=== PATIENT | male | born 1940 | race Caucasian/White ===

== ENCOUNTER 2016-11-23 05:54 | Day surgery (SDC) | payer MEDICARE ==
[2016-11-18 11:49] VITALS: BMI 32.9
[2016-11-23] MEDS ORDERED: SODIUM CHLORIDE 0.9% 1,000 ML IV SCH ×2 (05:56→07:45)
[2016-11-23] MEDS ORDERED: LACTATED RINGERS 1,000 ML IV SCH (05:56)
[2016-11-23] MEDS ORDERED: BENZOCAINE SPRAY 100 APPLIC/CAN TOPICAL PRN (05:56)
[2016-11-23 06:41] LABS: INR 4.3 (<1.1)
[2016-11-23 06:56] LABS: Anion Gap 11 mmol/L; Blood Urea Nitrogen 22 mg/dL (9-20); Calcium 9.4 mg/dL (8.4-10.2); Carbon Dioxide 26 mmol/L (22-30); Chloride 107 mmol/L (98-107); Glucose 98 mg/dL (74-99); Non-African American GFR(MDRD) >60 (>60 ml/min/1.73 sqM); Potassium 4.6 mmol/L (3.5-5.1); Sodium 144 mmol/L (137-145)
[2016-11-23] MEDS ORDERED: PROPOFOL 10 MG/ML 20 ML VIAL IV ONE ×2 (07:06→10:26)
[2016-11-23 07:37] VITALS: TEMP 97.5
[2016-11-23 08:27] VITALS: RESP 16
[2016-11-23] MEDS ORDERED: AMIODARONE 200 MG TAB PO SCH (09:00)
[2016-11-23] MEDS ORDERED: FUROSEMIDE 20 MG TAB PO SCH (09:00)
[2016-11-23] MEDS ORDERED: METOPROLOL TARTRATE 50 MG TAB PO SCH (09:00)
[2016-11-23] MEDS ORDERED: FOLIC ACID 1 MG TAB PO SCH (09:00)
[2016-11-23] MEDS ORDERED: NON-FORMULARY DRUG (Potassium Chloride [K-Tab Er] 10 MEQ) PO SCH (09:00)
[2016-11-23 09:25] VITALS: BP 148/66; PULSE 82
--- NOTE | 2016-11-23 11:30 | ECHOT ---
DATE OF SERVICE: CLINICAL INFORMATION: INDICATION: Evaluation of left atrial appendage. PROCEDURE: After explaining the procedure to the patient, its risk and complications, his blood pressure, heart rate, O2 saturation was monitored. The throat was sprayed with Cetacaine. He received sedation per Anesthesia Department. The probe was introduced into the esophagus without difficulty. Images were obtained. The probe was removed. There were no immediate complications. FINDINGS: Biatrial enlargement was noted. Left atrial appendage is normal. Left ventricular size and systolic function normal, ejection fraction is 55%. The mitral valve revealed severe mitral annulus calcification. A prosthetic aortic valve was noted with normal appearance. Tricuspid valve is normal. Descending thoracic aorta revealed mild atherosclerotic changes. No pericardial effusion was noted. Contrast bubble study revealed no evidence of shunting across the interatrial septum. Doppler pulse wave and color Doppler obtained, revealed mild mitral and tricuspid regurgitation. There was trace aortic regurgitation. No shunting was noted by color Doppler study. CONCLUSION: 1. Biatrial enlargement with normal appearance of left atrial appendage. 2. Normal ventricular size and systolic function. 3. Prosthetic aortic valve with normal appearance and trace aortic regurgitation. 4. Severe mitral annulus calcification with mild mitral regurgitation. 5. Mild tricuspid regurgitation. 6. No shunting across the interatrial septum. 7. Mild atherosclerotic changes of the descending thoracic aorta. [facility]
--- NOTE | 2016-11-23 13:22 | CE ---
DATE OF SERVICE: CARDIOVERSION PROCEDURE NOTE: INDICATIONS: Atrial flutter. PROCEDURE: After explaining the procedure to the patient as well as risks and complications, his blood pressure, heart rate and O2 saturation was monitored. After performing transesophageal echocardiogram and obtaining a sedated state, a synchronized biphasic 200 joules cardioversion was performed with yarsanism of normal sinus rhythm. There was no immediate complication.
[2016-11-23] MEDS ORDERED: NON-FORMULARY DRUG (Benazepril Hcl [Lotensin] 20 MG) PO SCH (15:00)
[2016-11-25] MEDS ORDERED: WARFARIN 7.5 MG TAB PO SCH (07:32)
== END 2016-11-23 09:25 | disposition home or self-care (01) ==
LOC: CATHCVL 05:54
PROVIDERS: ATTEND Internal Medicine Interventional Cardiology
DX: I48.92 Unspecified atrial flutter (principal); I48.91 Unspecified atrial fibrillation; Z95.2 Presence of prosthetic heart valve; I51.7 Cardiomegaly; I08.1 Rheumatic disorders of both mitral and tricuspid valves; I70.0 Atherosclerosis of aorta; I44.7 Left bundle-branch block, unspecified; R94.31 Abnormal electrocardiogram [ECG] [EKG]; I73.9 Peripheral vascular disease, unspecified; I10 Essential (primary) hypertension; Z79.01 Long term (current) use of anticoagulants; Z79.891 Long term (current) use of opiate analgesic; Z79.899 Other long term (current) drug therapy; Z88.8 Allergy status to other drugs, medicaments and biological substances; Z82.49 Family history of ischemic heart disease and other diseases of the circulatory system
CPT/HCPCS: 93312; 93320; 93005; 93325; 92960; 80048; 85610; J2704; 99152

== ENCOUNTER 2017-10-20 23:56 | Emergency (ER) | payer MEDICARE ==
[2017-10-21 00:07] VITALS: RESP 18
[2017-10-21] MEDS ORDERED: KETOROLAC 30 MG/ML 1 ML VIAL IVP STA (02:22)
[2017-10-21] MEDS ORDERED: HYDROmorphone 1 MG/ML 1 ML SYRINGE IVP STA (02:22)
[2017-10-21] MEDS ORDERED: SODIUM CHLORIDE 0.9% 1,000 ML IV STA (02:22)
[2017-10-21] MEDS ORDERED: ONDANSETRON 4 MG/2 ML VIAL IVP STA (02:22)
[2017-10-21 02:56] LABS: INR 3.8 (<1.2); Partial Thromboplastin Time 37.8 sec (22.0-30.0); Prothrombin Time 34.4 sec (9.0-12.0)
[2017-10-21 02:59] LABS: Basophils # (A) 0.1 k/uL (0-0.2); Basophils % (A) 1 %; CH 31.2; CHCM 32.5; Eosinophils # (A) 0.3 k/uL (0-0.7); Eosinophils % (A) 3 %; HCT 39.8 % (39.0-53.0); HDW 2.75; HGB 12.4 gm/dL (13.0-17.5); Luc % (Auto) 2; Lymphocytes # (A) 0.6 k/uL (1.0-4.8); Lymphocytes % (A) 5 %; MCH 30.2 pg (25.0-35.0); MCHC 31.2 g/dL (31.0-37.0); MCV 96.6 fL (80.0-100.0); Mean Platelet Volume 8.1; Monocytes # (A) 0.7 k/uL (0-1.0); Monocytes % (A) 6 %; Neutrophils # (A) 9.9 k/uL (1.3-7.7); Neutrophils % (A) 84 %; RBC 4.12 m/uL (4.30-5.90); RDW 14.2 % (11.5-15.5); WBC 11.9 k/uL (3.8-10.6); WBC (Perox) 11.29
[2017-10-21 03:01] LABS: ALT 40 U/L (21-72); AST 34 U/L (17-59); Alkaline Phosphatase 85 U/L (38-126); Amylase 50 U/L (30-110); Anion Gap 11 mmol/L; Blood Urea Nitrogen 22 mg/dL (9-20); Calcium 9.3 mg/dL (8.4-10.2); Carbon Dioxide 26 mmol/L (22-30); Chloride 105 mmol/L (98-107); Glucose 100 mg/dL (74-99); Non-African American GFR(MDRD) >60 (>60 ml/min/1.73 sqM); Potassium 4.6 mmol/L (3.5-5.1); Sodium 142 mmol/L (137-145); Total Bilirubin 0.6 mg/dL (0.2-1.3); Total Protein 7.5 g/dL (6.3-8.2)
--- NOTE | 2017-10-21 03:10 | CT ---
EXAM: CT Abdomen and Pelvis Without Intravenous Contrast CLINICAL HISTORY: Reason: abdominal pain TECHNIQUE: Axial computed tomography images of the abdomen and pelvis without intravenous contrast. CTDI is 39.5 mGy and DLP is 1765.70 mGy-cm. This CT exam was performed using one or more of the following dose reduction techniques: automated exposure control, adjustment of the mA and/or kV according to patient size, and/or use of iterative reconstruction technique. Coronal and sagittal reformatted images were created and reviewed. COMPARISON: 09/28/2015 FINDINGS: Lower thorax: No acute findings. ABDOMEN: Liver: Unremarkable. Gallbladder and bile ducts: Unremarkable. No calcified stones. No ductal dilation. Pancreas: Unremarkable. No ductal dilation. Spleen: Unremarkable. No splenomegaly. Adrenals: Unremarkable. No mass. Kidneys and ureters: There is [id number] right hydroureteronephrosis noted. There is dilatation of the ureter throughout its course. There is a 5.8 mm ureteral stone noted passing into the bladder at the UVJ. There is a 5 mm calcification involving the left renal pelvis. No hydronephrosis is seen. Multiple rounded hyperdense structures are noted involving both kidneys are stable in size in presumed hemorrhagic cysts. Detailed evaluation is not possible on this noncontrast examination. There is a cortical hypodense cyst involving the posterior cortex of the mid left kidney which is similar to previous exam. Stomach and bowel: Unremarkable. No obstruction. No mucosal thickening. Appendix: No findings to suggest acute appendicitis. PELVIS: Bladder: Unremarkable. No stones. Reproductive: Unremarkable as visualized. ABDOMEN and PELVIS: Intraperitoneal space: Unremarkable. No free air. No significant fluid collection. Bones/joints: Multilevel degenerative changes with spondylosis and vacuum phenomenon at multiple levels. Osseous severe canal stenosis is noted at L4-5 level which appears stable. No acute fracture. No dislocation. Soft tissues: Unremarkable. Vasculature: Unremarkable. No abdominal aortic aneurysm. Lymph nodes: Unremarkable. No enlarged lymph nodes. IMPRESSION: There is [id number] right hydroureteronephrosis noted. There is dilatation of the ureter throughout its course. There is a 5.8 mm ureteral stone noted passing into the bladder at the UVJ.
[2017-10-21] MEDS ORDERED: TAMSULOSIN 0.4 MG CAP.ER.24H PO STA (03:23)
[2017-10-21 03:25] LABS: Appearance,Urine Cloudy (Clear); Bilirubin,Urine Negative (Negative); Glucose,Urine (UA) Negative (Negative); Granular Casts,Urine 5 /lpf (0); Ketones,Urine Negative (Negative); Leukocyte Esterase,Urine Trace (Negative); Mucus,Urine Rare /hpf; Nitrite,Urine Negative (Negative); PH, Urine 5.5 (5.0-8.0); Particle Count 7739; Protein,Urine 1+ (Negative); RBC,Urine >182 /hpf (0-5); Specific Gravity,Urine 1.017 (1.001-1.035); UA Billing (MACRO vs. MICRO) MICRO; Urobilinogen,Urine <2.0 mg/dL (<2.0); WBC,Urine 26 /hpf (0-5)
--- NOTE | 2017-10-21 03:53 | ED ---
Back Pain HPI - General Chief Complaint: Back Pain/Injury Stated Complaint: poss kidney stone Time Seen by Provider: 10/21/17 01:49 Source: patient, RN notes reviewed, old records reviewed Limitations: no limitations - History of Present Illness Initial Comments: Patient is a 77 year old male with CC of right flank pain and groin pain for 1 day. Has history of renal cyst and stones, and believes he is passing a stone. Denies any vomiting, but reports nausea. Patient noted blood in urine. Patient is on coumadin for Afib. Patient denies any fever, chills, diarrhea, constipation. Patient relates that he follows with Dr. Douglas in regards to renal cyst. - Related Data Home Medications Medication Instructions Recorded Confirmed Amiodarone [Cordarone] 200 mg PO DAILY 11/18/16 11/23/16 Benazepril HCl [Lotensin] 20 mg PO 1500 11/18/16 11/23/16 Folic Acid 800 mcg PO DAILY 11/18/16 11/23/16 Furosemide [Lasix] 20 mg PO DAILY 11/18/16 11/23/16 Metoprolol Tartrate [Lopressor] 50 mg PO BID 11/18/16 11/23/16 Potassium Chloride [K-Tab ER] 10 meq PO DAILY 11/18/16 11/23/16 Warfarin [Coumadin] 5 mg PO SUTUWETHSA 11/18/16 11/23/16 Warfarin [Coumadin] 7.5 mg PO MOFR 11/18/16 11/23/16 Previous Rx's Medication Instructions Recorded Ciprofloxacin HCl [Cipro] 500 mg PO Q12HR #14 tab 10/21/17 HYDROcodone/APAP 5-325MG [[place] 1 tab PO Q6HR PRN #20 tab 10/21/17 5-325] Ketorolac [Toradol] 10 mg PO Q6HR #15 tab 10/21/17 Ondansetron Odt [Zofran Odt] 4 mg PO Q8HR PRN #12 tab 10/21/17 Tamsulosin [Flomax] 0.4 mg PO DAILY #10 cap 10/21/17 Allergies Allergy/AdvReac Type Severity Reaction Status Date / Time dopamine Allergy "WAS TOLD Verified 11/18/16 10:57 NOT TO HAVE RX AGAIN,VERY ILL STATES ALMOST " Review of Systems ROS Statement: Those systems with pertinent positive or pertinent negative responses have been documented in the HPI. ROS Other: All systems not noted in ROS Statement are negative. Past Medical History Past Medical History: Cancer, Hypertension, Osteoarthritis (OA), Prostate Disorder Additional Past Medical History / Comment(s): ARRYTHYTHMIA,AORTIC VALVE REPLACEMENT,PROSTATE CANCER, History of Any Multi-Drug Resistant Organisms: None Reported Past Surgical History: Tonsillectomy Additional Past Surgical History / Comment(s): VASCECTOMY,AORTIC VALVE REPLACEMENT, CAROTID ARTERY RIGHT SIDE Past Anesthesia/Blood Transfusion Reactions: No Reported Reaction Past Psychological History: Depression Smoking Status: Former smoker Past Alcohol Use History: None Reported Past Drug Use History: None Reported - Past Family History Mother Family Medical History: Cancer General Exam - General Exam Comments Initial Comments: This is a very pleasant 77 year old male, no distress Limitations: no limitations General appearance: alert, in no apparent distress Head exam: Present: atraumatic, normocephalic, normal inspection Eye exam: Present: normal appearance, PERRL, EOMI. Absent: scleral icterus, conjunctival injection, periorbital swelling ENT exam: Present: normal exam, mucous membranes moist Neck exam: Present: normal inspection. Absent: tenderness, meningismus, lymphadenopathy Respiratory exam: Present: normal lung sounds bilaterally. Absent: respiratory distress, wheezes, rales, rhonchi, stridor Cardiovascular Exam: Present: regular rate, normal rhythm, normal heart sounds. Absent: systolic murmur, diastolic murmur, rubs, gallop, clicks GI/Abdominal exam: Present: soft, normal bowel sounds. Absent: distended, tenderness, guarding, rebound, rigid Extremities exam: Present: normal inspection, full ROM, normal capillary refill. Absent: tenderness, pedal edema, joint swelling, calf tenderness Back exam: Present: normal inspection, CVA tenderness (R) Neurological exam: Present: alert, oriented X3, CN II-XII intact Psychiatric exam: Present: normal affect, normal mood Course Vital Signs 10/21/17 10/21/17 10/21/17 00:02 03:32 04:32 Temperature 97.9 F 98 F Pulse Rate 72 64 76 Respiratory 18 18 18 Rate Blood Pressure 195/82 141/66 141/76 O2 Sat by Pulse 95 96 97 Oximetry Medical Decision Making - Medical Decision Making Patient is a 77 year old male with Right CVA tenderness, flank pain, hematuria for 1 day. Patient has significant hematuria and WBC. LAbs show minor leukocytosis. BUN and CR within noral limitis. Patient INR is elevated. Discussed hold coumadin for 1 day and recheck next week. Patient CT shows 5.8mm stone at Right VUJ. Patient was given fluids and pain medication, and reports he feels much better. Discussed patient should follow up with urology and PCP. Return parameters discussed. - Lab Data Result diagrams: 10/21/17 01:18 Lab Results 10/21/17 10/21/17 10/21/17 Range/Units 01:18 01:18 01:18 WBC 11.9 H (3.8-10.6) k/uL RBC 4.12 L (4.30-5.90) m/uL Hgb 12.4 L (13.0-17.5) gm/dL Hct 39.8 (39.0-53.0) % MCV 96.6 (80.0-100.0) fL MCH 30.2 (25.0-35.0) pg MCHC 31.2 (31.0-37.0) g/dL RDW 14.2 (11.5-15.5) % Plt Count 174 (150-450) k/uL Neutrophils % 84 % Lymphocytes % 5 % Monocytes % 6 % Eosinophils % 3 % Basophils % 1 % Neutrophils # 9.9 H (1.3-7.7) k/uL Lymphocytes # 0.6 L (1.0-4.8) k/uL Monocytes # 0.7 (0-1.0) k/uL Eosinophils # 0.3 (0-0.7) k/uL Basophils # 0.1 (0-0.2) k/uL PT 34.4 H (9.0-12.0) sec INR 3.8 H (<1.2) APTT 37.8 H (22.0-30.0) sec Urine Color Red Urine Appearance Cloudy (Clear) Urine pH 5.5 (5.0-8.0) Ur Specific [place] 1.017 (1.001-1.035) Urine Protein 1+ H (Negative) Urine Glucose (UA) Negative (Negative) Urine Ketones Negative (Negative) Urine Blood Large H (Negative) Urine Nitrite Negative (Negative) Urine Bilirubin Negative (Negative) Urine Urobilinogen <2.0 (<2.0) mg/dL Ur Leukocyte Esterase Trace H (Negative) Urine RBC >182 H (0-5) /hpf Urine WBC 26 H (0-5) /hpf Urine WBC Clumps Few H (None) /hpf Granular Casts 5 (0) /lpf Urine Mucus Rare H (None) /hpf - Radiology Data Radiology results: report reviewed CT shows hydroureter and hydronephrosis on Right renal pelbis. Evidence of 5.8 mm ureteral stone in VUJ. Disposition Clinical Impression: Right ureteral stone, Elevated INR Disposition: HOME SELF-CARE Condition: Good Instructions: Ureteral Stones (ED) Additional Instructions: Patient to follow-up with urologist. Remain hydrated. Take the medicine as prescribed. Return to emergency department if any alarming signs or symptoms occur. Patient should discontinue taking her warfarin for the next 2 days. Follow-up with your primary care provider within the next week. Prescriptions: Ciprofloxacin HCl [Cipro] 500 mg PO Q12HR #14 tab HYDROcodone/APAP 5-325MG [[place] 5-325] 1 tab PO Q6HR PRN #20 tab PRN Reason: Pain Ketorolac [Toradol] 10 mg PO Q6HR #15 tab Ondansetron Odt [Zofran Odt] 4 mg PO Q8HR PRN #12 tab PRN Reason: Nausea Tamsulosin [Flomax] 0.4 mg PO DAILY #10 cap Referrals: Coleman Nugent MD [Primary Care Provider] - 1-2 days Time of Disposition: 03:51
[2017-10-21 04:34] VITALS: BP 141/76; PULSE 76; TEMP 98
== END 2017-10-21 04:34 | disposition home or self-care (01) ==
LOC: EC 23:56
DX: N13.2 Hydronephrosis with renal and ureteral calculous obstruction (principal); N13.4 Hydroureter; R79.1 Abnormal coagulation profile; D72.829 Elevated white blood cell count, unspecified; I48.91 Unspecified atrial fibrillation; I10 Essential (primary) hypertension; Z87.891 Personal history of nicotine dependence; Z79.01 Long term (current) use of anticoagulants; Z79.899 Other long term (current) drug therapy; Z88.8 Allergy status to other drugs, medicaments and biological substances; Z86.79 Personal history of other diseases of the circulatory system
CPT/HCPCS: 36415; 80053; 82150; 83690; 85025; 85610; 85730; 81001; 74176; 99285; 96374; 96375 ×2; 96361; J2405; J1885; J1170

== ENCOUNTER → 2018-09-14 | Outpatient (CLI) | payer MEDICARE ==
[2018-09-14 19:13] LABS: Anion Gap 7.8 mmol/L (4.00-12.00); Carbon Dioxide 23.2 mmol/L (21.6-31.8); Potassium 4.7 mmol/L (3.5-5.5)
== END | disposition home or self-care (01) ==
LOC: LABWHC1 13:33
PROVIDERS: ATTEND Internal Medicine Interventional Cardiology
DX: I10 Essential (primary) hypertension (principal)
CPT/HCPCS: 36415; 80051; 82565; 84520

== ENCOUNTER → 2018-10-05 | Outpatient (CLI) | payer MEDICARE ==
[2018-10-05 20:57] LABS: Albumin/Globulin Ratio 1.25 (1.20-2.10); Anion Gap 9.4 mmol/L (4.00-12.00); Calcium 8.9 mg/dL (8.7-10.3); Carbon Dioxide 25.6 mmol/L (21.6-31.8); Globulin 3.2 g/dL (2.1-3.7); Potassium 4.4 mmol/L (3.5-5.5); Total Bilirubin 0.5 mg/dL (0.3-1.2); Total Protein 7.2 g/dL (6.2-8.2)
== END | disposition home or self-care (01) ==
LOC: LABWHC1 11:40
PROVIDERS: ATTEND Nurse Practitioner Adult Health
DX: E03.2 Hypothyroidism due to medicaments and other exogenous substances (principal); I48.3 Typical atrial flutter
CPT/HCPCS: 36415; 80053; 84443

== ENCOUNTER → 2018-10-24 | Outpatient (CLI) | payer MEDICARE ==
--- NOTE | 2018-10-24 14:37 | CT ---
EXAMINATION TYPE: CT abdomen pelvis wo con DATE OF EXAM: 10/24/2018 COMPARISON: HISTORY: Calculus of kidney. CT DLP: 1178.8 mGycm Examination of the solid and hollow viscera is limited given the lack of contrast. FINDINGS: LUNG BASES: No evidence for nodule. No evidence for infiltrate. LIVER/GB: There is no evidence of cholelithiasis. No space-occupying hepatic lesion. PANCREAS: No pancreatic mass identified. No inflammatory process seen. SPLEEN: No evidence for splenomegaly. No intrasplenic lesions seen. ADRENALS: No adrenal nodules identified. No evidence for thickening. KIDNEYS: Renal cystic changes. Several hemorrhagic cysts are redemonstrated. Renal vascular calcifica tion. No nephrolithiasis appreciated. No hydronephrosis. Urinary bladder is grossly unremarkable. BOWEL: Appendix has a normal appearance. No evidence of bowel obstruction. No inflammatory process. Lymph nodes: No evidence for adenopathy greater than 1 cm. Abdominal aorta: Atheromatous changes seen. No evidence for aneurysm. Genital organs: No significant abnormality. Other: Severe degenerative change lumbar spine. IMPRESSION: 1. No evidence for hydronephrosis or nephrolithiasis.
== END | disposition home or self-care (01) ==
LOC: RADCTMAIN 13:58
PROVIDERS: ATTEND Family Medicine
DX: N20.0 Calculus of kidney (principal)
CPT/HCPCS: 74176

== ENCOUNTER → 2019-05-09 | Outpatient (CLI) | payer MEDICARE ==
--- NOTE | 2019-05-09 18:22 | CT ---
EXAMINATION TYPE: CT abdomen pelvis wo con DATE OF EXAM: 05/09/2019 COMPARISON: 10/24/2018 INDICATION: Gross hematuria., R 93.1 DLP: 1082 mGycm, Automated exposure control for dose reduction was used. CONTRAST: 0 mL of Isovue 300. Study performed without Oral Contrast TECHNIQUE: Axial images were obtained from above the diaphragm to the pubic rami in the axial plane a t 5 mm thick sections. Reconstructed images are reviewed on the computer in the coronal plane. FINDINGS: Limited CT sections are obtained the lung bases. Coronary artery calcifications present. Some mild s ubsegmental atelectasis is likely within the dependent portions of the lung bases.. CT ABDOMEN: Liver: Normal Spleen: Normal Pancreas: Normal Adrenal glands: The adrenal glands are normal. Gallbladder: Normal Kidneys: There are scattered rounded hyper densities within the bilateral kidney cortex. Correlate fo r tuberous sclerosis. The largest at the inferior pole left kidney and measures 2.6 cm in size. These were present previously.. No hydronephrosis is present. No cysts are present. Aorta: Vascular calcification is within the aorta. Inferior vena cava: Normal. CT PELVIS: Loops of bowel within the abdomen and pelvis are normal. Study is performed without oral contrast limiting bowel evaluation. Appendix: Normal as visualized. Urinary bladder: Normal. Genitourinary structures: Prostate appears normal in size and contains calcification. Osseous structures: No suspicious lytic or sclerotic lesions. IMPRESSIONS: 1. No suspicious acute changes. 2. Stable hypodense lesions within the renal cortices.
== END | disposition home or self-care (01) ==
LOC: RADCTMAIN 14:54
PROVIDERS: ATTEND Family Medicine
DX: N28.89 Other specified disorders of kidney and ureter (principal)
CPT/HCPCS: 74176

== ENCOUNTER 2019-05-14 11:20 | Emergency (ER) | payer MEDICARE ==
[2019-05-14 11:31] VITALS: BP 171/67; PULSE 57; RESP 20; TEMP 97.5
[2019-05-14 12:22] LABS: Basophils # (A) 0.1 k/uL (0-0.2); Basophils % (A) 1 %; Eosinophils # (A) 0.3 k/uL (0-0.7); Eosinophils % (A) 3 %; HCT 41.4 % (39.0-53.0); HGB 13.3 gm/dL (13.0-17.5); Lymphocytes # (A) 0.8 k/uL (1.0-4.8); Lymphocytes % (A) 7 %; MCH 30.1 pg (25.0-35.0); MCHC 32.1 g/dL (31.0-37.0); MCV 93.8 fL (80.0-100.0); Mean Platelet Volume 7.8; Monocytes # (A) 0.8 k/uL (0-1.0); Monocytes % (A) 6 %; Neutrophils # (A) 9.8 k/uL (1.3-7.7); Neutrophils % (A) 82 %; Platelet Count 197 k/uL (150-450); RBC 4.41 m/uL (4.30-5.90); RDW 14.3 % (11.5-15.5); WBC 11.9 k/uL (3.8-10.6)
[2019-05-14 12:48] LABS: INR 4.9 (<1.2); Partial Thromboplastin Time 56.1 sec (22.0-30.0); Prothrombin Time 47.4 sec (9.0-12.0)
--- NOTE | 2019-05-14 13:00 | ED ---
General Adult HPI - General Chief complaint: Abdominal Pain Stated complaint: HEMATURIA Time Seen by Provider: 05/14/19 11:35 Source: patient, RN notes reviewed Mode of arrival: ambulatory Limitations: no limitations - History of Present Illness Initial comments: 78-year-old male with a past medical history of prostate cancer, hypertension, or aortic valve replacement currently on Coumadin presents to the emergency determine for hematuria times one week. Patient states he has had this several times in the past but usually it stops. States he has some left flank pain. States that he had a CAT scan 5 days ago that did not show a kidney stone. St ates he saw his primary care provider and was told to follow-up with urology. Patient states they came here instead. Denies any abdominal pain. Denies any lightheadedness. Denies bleeding from anywhere else.Patient has no other complaints at this time including shortness of breath, chest pain, abdominal pain, nausea or vomiting, headache, or visual changes. - Related Data Home Medications Medication Instructions Recorded Confirmed Metoprolol Tartrate [Lopressor] 50 mg PO BID 11/18/16 05/14/19 Folic Acid 0.8 mg PO DAILY@1500 11/02/17 05/14/19 Amiodarone [Cordarone] 200 mg PO DAILY 05/14/19 05/14/19 HYDROcodone/APAP 5-325MG [[place] 1 tab PO BID PRN 05/14/19 05/14/19 5-325] Warfarin [Coumadin] 2.5 mg PO MOFR 05/14/19 05/14/19 Warfarin [Coumadin] 5 mg PO SUTUWETHSA 05/14/19 05/14/19 amLODIPine [Norvasc] 5 mg PO BID 05/14/19 05/14/19 Allergies Allergy/AdvReac Type Severity Reaction Status Date / Time dopamine Allergy "WAS TOLD Verified 05/14/19 12:06 NOT TO HAVE RX AGAIN,VERY ILL STATES ALMOST " Review of Systems ROS Statement: Those systems with pertinent positive or pertinent negative responses have been documented in the HPI. ROS Other: All systems not noted in ROS Statement are negative. Past Medical History Past Medical History: Cancer, Hypertension, Osteoarthritis (OA), Prostate Disorder Additional Past Medical History / Comment(s): ARRYTHYTHMIA,AORTIC VALVE REPLACEMENT,PROSTATE CANCER, History of Any Multi-Drug Resistant Organisms: None Reported Past Surgical History: Tonsillectomy Additional Past Surgical History / Comment(s): VASCECTOMY,AORTIC VALVE REPLACEMENT, CAROTID ARTERY RIGHT SIDE Past Anesthesia/Blood Transfusion Reactions: No Reported Reaction Past Psychological History: Depression Smoking Status: Former smoker Past Alcohol Use History: None Reported Past Drug Use History: None Reported - Past Family History Mother Family Medical History: Cancer General Exam Limitations: no limitations General appearance: alert, in no apparent distress Head exam: Present: atraumatic, normocephalic, normal inspection Eye exam: Present: normal appearance, PERRL, EOMI. Absent: scleral icterus, conjunctival injection, periorbital swelling ENT exam: Present: normal exam, mucous membranes moist Neck exam: Present: normal inspection, full ROM. Absent: tenderness, meningismus, lymphadenopathy Respiratory exam: Present: normal lung sounds bilaterally. Absent: respiratory distress, wheezes, rales, rhonchi, stridor Cardiovascular Exam: Present: regular rate, normal rhythm, normal heart sounds. Absent: bradycardia, tachycardia, irregular rhythm GI/Abdominal exam: Present: soft, normal bowel sounds. Absent: distended, tenderness, guarding, rebound, rigid Neurological exam: Present: alert, oriented X3, CN II-XII intact Psychiatric exam: Present: normal affect, normal mood Course Vital Signs 05/14/19 11:29 Temperature 97.5 F L Pulse Rate 57 L Respiratory 20 Rate Blood Pressure 171/67 O2 Sat by Pulse 96 Oximetry - Reevaluation(s) Reevaluation #1: 05/14/19 13:00 Patient had a computed tomography scan of the abdomen and pelvis without contrast 5 days ago on 05/09/2019. This showed scattered a rounded hypodensities within the bilateral kidney cortex correlated for tuberous sclerosis. Largest at the inferior pole left kidney measures 2.6 cm. Present previously. No changes. Medical Decision Making - Medical Decision Making Pete is a 78 -year-old male presenting to the emergency department for chief complaint of gross hematuria times one week. History of kidney stones however negative CAT scan 5 days ago. These results were reviewed which showed tubular sclerosis that is unchanged. CBC is unremarkable. CMP does show a creatinine of 1.5, likely related to dehydration, educated patient on fluid intake. INR is 4.9, this is high. Patient was told to hold Coumadin today and tomorrow. Urine did show a greater than 182 red blood cells with only 8 white blood cells. This will be cultured. No significant evidence of infection at this time. Discussed case with Dr. Nuñez. At this time patient will follow up outpatient with urology. He will hold Coumadin for 2 days and drink plenty of fluids. He will follow-up with his primary care provider in 2 days for repeat blood work and urine. Family is in agreement. - Lab Data Result diagrams: 05/14/19 12:10 05/14/19 12:10 Lab Results 05/14/19 05/14/19 05/14/19 Range/Units 12:10 12:10 12:10 WBC 11.9 H (3.8-10.6) k/uL RBC 4.41 (4.30-5.90) m/uL Hgb 13.3 (13.0-17.5) gm/dL Hct 41.4 (39.0-53.0) % MCV 93.8 (80.0-100.0) fL MCH 30.1 (25.0-35.0) pg MCHC 32.1 (31.0-37.0) g/dL RDW 14.3 (11.5-15.5) % Plt Count 197 (150-450) k/uL Neutrophils % 82 % Lymphocytes % 7 % Monocytes % 6 % Eosinophils % 3 % Basophils % 1 % Neutrophils # 9.8 H (1.3-7.7) k/uL Lymphocytes # 0.8 L (1.0-4.8) k/uL Monocytes # 0.8 (0-1.0) k/uL Eosinophils # 0.3 (0-0.7) k/uL Basophils # 0.1 (0-0.2) k/uL PT 47.4 H (9.0-12.0) sec INR 4.9 H (<1.2) APTT 56.1 H (22.0-30.0) sec Sodium 140 (137-145) mmol/L Potassium 4.4 (3.5-5.1) mmol/L Chloride 106 (98-107) mmol/L Carbon Dioxide 25 (22-30) mmol/L Anion Gap 9 mmol/L BUN 30 H (9-20) mg/dL Creatinine 1.50 H (0.66-1.25) mg/dL Est GFR (CKD-EPI)AfAm 51 (>60 ml/min/1.73 sqM) Est GFR (CKD-EPI)NonAf 44 (>60 ml/min/1.73 sqM) Glucose 84 (74-99) mg/dL Calcium 9.0 (8.4-10.2) mg/dL Total Bilirubin 0.6 (0.2-1.3) mg/dL AST 40 (17-59) U/L ALT 27 (21-72) U/L Alkaline Phosphatase 88 (38-126) U/L Total Protein 7.9 (6.3-8.2) g/dL Albumin 3.9 (3.5-5.0) g/dL Urine Color Urine Appearance (Clear) Urine RBC (0-5) /hpf Urine WBC (0-5) /hpf 05/14/19 Range/Units 12:10 WBC (3.8-10.6) k/uL RBC (4.30-5.90) m/uL Hgb (13.0-17.5) gm/dL Hct (39.0-53.0) % MCV (80.0-100.0) fL MCH (25.0-35.0) pg MCHC (31.0-37.0) g/dL RDW (11.5-15.5) % Plt Count (150-450) k/uL Neutrophils % % Lymphocytes % % Monocytes % % Eosinophils % % Basophils % % Neutrophils # (1.3-7.7) k/uL Lymphocytes # (1.0-4.8) k/uL Monocytes # (0-1.0) k/uL Eosinophils # (0-0.7) k/uL Basophils # (0-0.2) k/uL PT (9.0-12.0) sec INR (<1.2) APTT (22.0-30.0) sec Sodium (137-145) mmol/L Potassium (3.5-5.1) mmol/L Chloride (98-107) mmol/L Carbon Dioxide (22-30) mmol/L Anion Gap mmol/L BUN (9-20) mg/dL Creatinine (0.66-1.25) mg/dL Est GFR (CKD-EPI)AfAm (>60 ml/min/1.73 sqM) Est GFR (CKD-EPI)NonAf (>60 ml/min/1.73 sqM) Glucose (74-99) mg/dL Calcium (8.4-10.2) mg/dL Total Bilirubin (0.2-1.3) mg/dL AST (17-59) U/L ALT (21-72) U/L Alkaline Phosphatase (38-126) U/L Total Protein (6.3-8.2) g/dL Albumin (3.5-5.0) g/dL Urine Color Dark Red Urine Appearance Bloody (Clear) Urine RBC >182 H (0-5) /hpf Urine WBC 8 H (0-5) /hpf Disposition Clinical Impression: Elevated INR, Hematuria Disposition: HOME SELF-CARE Condition: Good Instructions (If sedation given, give patient instructions): Hematuria (ED) Additional Instructions: Please follow up with urology for blood in urine as soon as possible. Follow-up with primary care in 2 days for repeat INR levels and recheck. Do not take Coumadin today or tomorrow. Return to the emergency department if you have any worsening symptoms. Is patient prescribed a controlled substance at d/c from ED?: No Referrals: Coleman Nugent MD [Primary Care Provider] - 1-2 days Time of Disposition: 14:28
[2019-05-14 13:01] LABS: Albumin 3.9 g/dL (3.5-5.0); Potassium 4.4 mmol/L (3.5-5.1); Total Bilirubin 0.6 mg/dL (0.2-1.3); Total Protein 7.9 g/dL (6.3-8.2)
[2019-05-14 13:35] LABS: RBC,Urine >182 /hpf (0-5); WBC,Urine 8 /hpf (0-5)
[2019-05-14 13:40] LABS: Appearance,Urine Bloody (Clear); Color,Urine Dark Red
== END 2019-05-14 15:02 | disposition home or self-care (01) ==
LOC: EC 11:20
DX: R31.9 Hematuria, unspecified (principal); R79.1 Abnormal coagulation profile; R10.9 Unspecified abdominal pain; I10 Essential (primary) hypertension; Z79.01 Long term (current) use of anticoagulants; Z79.899 Other long term (current) drug therapy; Z88.8 Allergy status to other drugs, medicaments and biological substances; Z87.891 Personal history of nicotine dependence; Z85.46 Personal history of malignant neoplasm of prostate; Z95.2 Presence of prosthetic heart valve
CPT/HCPCS: 36415; 80053; 81001; 85025; 85610; 85730; 87086; 99284

== ENCOUNTER 2019-08-22 09:03 | Emergency (ER) | payer MEDICARE ==
[2019-08-22 09:09] VITALS: TEMP 97.5
[2019-08-22] MEDS ORDERED: SODIUM CHLORIDE 0.9% 500 ML 500 ML IV STA (09:44)
--- NOTE | 2019-08-22 09:47 | ED ---
General Adult HPI - General Chief complaint: Abdominal Pain Stated complaint: Blood in Urine Time Seen by Provider: 08/22/19 09:05 Source: patient, family, RN notes reviewed Mode of arrival: wheelchair Limitations: no limitations - History of Present Illness Initial comments: This is a 79-year-old male with past medical history significant for a valve r eplacement with mechanical valve. Patient states she's on Coumadin. Patient states 2 days ago started having some blood in the urine and then it stopped but returned again today and is actually urinating out some clots. Patient states he has a little bit of dysuria as well. Patient denies urinary frequency but does describe some urgency. Patient denies any abdominal pain any flank pain or any back pain. Patient denies any fever chills. Patient denies any other symptoms at this time. - Related Data Home Medications Medication Instructions Recorded Confirmed Metoprolol Tartrate [Lopressor] 50 mg PO BID 11/18/16 08/22/19 Folic Acid 0.8 mg PO DAILY@1500 11/02/17 08/22/19 Amiodarone [Cordarone] 200 mg PO DAILY 05/14/19 08/22/19 HYDROcodone/APAP 5-325MG [[place] 1 tab PO BID PRN 05/14/19 08/22/19 5-325] Warfarin [Coumadin] 2.5 mg PO TUWEFR 05/14/19 08/22/19 Warfarin [Coumadin] 5 mg PO SUMOTHSA 05/14/19 08/22/19 amLODIPine [Norvasc] 5 mg PO DAILY 05/14/19 08/22/19 Amoxicillin 875 mg PO Q12HR 08/22/19 08/22/19 Previous Rx's Medication Instructions Recorded Sulfamethox-Tmp 800-160Mg [Bactrim 1 each PO Q12HR #14 tab 08/22/19 DS 800-160 mg] Allergies Allergy/AdvReac Type Severity Reaction Status Date / Time dopamine Allergy "WAS TOLD Verified 08/22/19 09:41 NOT TO HAVE RX AGAIN,VERY ILL STATES ALMOST " Review of Systems ROS Statement: Those systems with pertinent positive or pertinent negative responses have been documented in the HPI. ROS Other: All systems not noted in ROS Statement are negative. Past Medical History Past Medical History: Cancer, Hypertension, Osteoarthritis (OA), Prostate Disorder Additional Past Medical History / Comment(s): ARRYTHYTHMIA,AORTIC VALVE REP LACEMENT,PROSTATE CANCER, History of Any Multi-Drug Resistant Organisms: None Reported Past Surgical History: Tonsillectomy Additional Past Surgical History / Comment(s): VASCECTOMY,AORTIC VALVE REPLACEMENT, CAROTID ARTERY RIGHT SIDE Past Anesthesia/Blood Transfusion Reactions: No Reported Reaction Past Psychological History: Depression Smoking Status: Former smoker Past Alcohol Use History: None Reported Past Drug Use History: None Reported - Past Family History Mother Family Medical History: Cancer General Exam - General Exam Comments Initial Comments: GENERAL: Patient is well-developed and well-nourished. Patient is nontoxic and well- hydrated and is in no acute distress. ENT: Neck is soft and supple. No significant lymphadenopathy is noted. Oropharynx is clear. Moist mucous membranes. Neck has full range of motion without eliciting any pain. EYES: The sclera were anicteric and conjunctiva were pink and moist. Extraocular movements were intact and pupils were equal round and reactive to light. Eyelids were unremarkable. PULMONARY: Unlabored respirations. Good breath sounds bilaterally. No audible rales rhonchi or wheezing was noted. CARDIOVASCULAR: There is a regular rate and rhythm without any murmurs gallops or rubs. ABDOMEN: Soft and nontender with normal bowel sounds. No palpable organomegaly was noted. There is no palpable pulsatile mass. SKIN: Skin is clear with no lesions or rashes and otherwise unremarkable. NEUROLOGIC: Patient is alert and oriented x3. Cranial nerves II through XII are grossly intact. Motor and sensory are also intact. Normal speech, volume and content. Symmetrical smile. MUSCULOSKELETAL: Normal extremities with adequate strength and full range of motion. No lower extremity swelling or edema. No calf tenderness. LYMPHATICS: No significant lymphadenopathy is noted PSYCHIATRIC: Normal psychiatric evaluation. Limitations: no limitations Course Vital Signs 08/22/19 09:06 Temperature 97.5 F L Pulse Rate 62 Respiratory 20 Rate Blood Pressure 159/68 O2 Sat by Pulse 98 Oximetry Medical Decision Making - Medical Decision Making Patient has quite a bit of blood in the urine since difficult to tell if there is also an infection. We will treat the patient empirically for infection. Patient will follow-up with Dr. Nugent and do any further workup as indicated. - Lab Data Result diagrams: 08/22/19 09:20 08/22/19 09:20 Lab Results 10/08/22/19 08/22/19 Range/Units 09:20 09:20 09:20 WBC 8.6 (3.8-10.6) k/uL RBC 4.16 L (4.30-5.90) m/uL Hgb 12.6 L (13.0-17.5) gm/dL Hct 38.7 L (39.0-53.0) % MCV 92.9 (80.0-100.0) fL MCH 30.3 (25.0-35.0) pg MCHC 32.6 (31.0-37.0) g/dL RDW 14.7 (11.5-15.5) % Plt Count 217 (150-450) k/uL Neutrophils % 79 % Lymphocytes % 9 % Monocytes % 6 % Eosinophils % 2 % Basophils % 1 % Neutrophils # 6.7 (1.3-7.7) k/uL Lymphocytes # 0.8 L (1.0-4.8) k/uL Monocytes # 0.5 (0-1.0) k/uL Eosinophils # 0.2 (0-0.7) k/uL Basophils # 0.1 (0-0.2) k/uL PT 27.1 H (9.0-12.0) sec INR 2.8 H (<1.2) APTT 40.2 H (22.0-30.0) sec Sodium 141 (137-145) mmol/L Potassium 4.9 (3.5-5.1) mmol/L Chloride 107 (98-107) mmol/L Carbon Dioxide 26 (22-30) mmol/L Anion Gap 8 mmol/L BUN 25 H (9-20) mg/dL Creatinine 1.25 (0.66-1.25) mg/dL Est GFR (CKD-EPI)AfAm 63 (>60 ml/min/1.73 sqM) Est GFR (CKD-EPI)NonAf 55 (>60 ml/min/1.73 sqM) Glucose 100 H (74-99) mg/dL Calcium 9.3 (8.4-10.2) mg/dL Total Bilirubin 0.8 (0.2-1.3) mg/dL AST 44 (17-59) U/L ALT 19 L (21-72) U/L Alkaline Phosphatase 120 (38-126) U/L Total Protein 9.2 H (6.3-8.2) g/dL Albumin 4.1 (3.5-5.0) g/dL Urine Color Urine Appearance (Clear) Urine RBC (0-5) /hpf Urine WBC (0-5) /hpf 08/22/19 Range/Units 11:00 WBC (3.8-10.6) k/uL RBC (4.30-5.90) m/uL Hgb (13.0-17.5) gm/dL Hct (39.0-53.0) % MCV (80.0-100.0) fL MCH (25.0-35.0) pg MCHC (31.0-37.0) g/dL RDW (11.5-15.5) % Plt Count (150-450) k/uL Neutrophils % % Lymphocytes % % Monocytes % % Eosinophils % % Basophils % % Neutrophils # (1.3-7.7) k/uL Lymphocytes # (1.0-4.8) k/uL Monocytes # (0-1.0) k/uL Eosinophils # (0-0.7) k/uL Basophils # (0-0.2) k/uL PT (9.0-12.0) sec INR (<1.2) APTT (22.0-30.0) sec Sodium (137-145) mmol/L Potassium (3.5-5.1) mmol/L Chloride (98-107) mmol/L Carbon Dioxide (22-30) mmol/L Anion Gap mmol/L BUN (9-20) mg/dL Creatinine (0.66-1.25) mg/dL Est GFR (CKD-EPI)AfAm (>60 ml/min/1.73 sqM) Est GFR (CKD-EPI)NonAf (>60 ml/min/1.73 sqM) Glucose (74-99) mg/dL Calcium (8.4-10.2) mg/dL Total Bilirubin (0.2-1.3) mg/dL AST (17-59) U/L ALT (21-72) U/L Alkaline Phosphatase (38-126) U/L Total Protein (6.3-8.2) g/dL Albumin (3.5-5.0) g/dL Urine Color Red Urine Appearance Bloody (Clear) Urine RBC >182 H (0-5) /hpf Urine WBC >182 H (0-5) /hpf Disposition Clinical Impression: Hematuria, Urinary tract infection Disposition: HOME SELF-CARE Condition: Good Instructions (If sedation given, give patient instructions): Hematuria (ED), Urinary Tract Infection in Men (ED) Prescriptions: Sulfamethox-Tmp 800-160Mg [Bactrim DS 800-160 mg] 1 each PO Q12HR #14 tab Is patient prescribed a controlled substance at d/c from ED?: No Referrals: Coleman Nugent MD [Primary Care Provider] - 1-2 days Time of Disposition: 11:53
[2019-08-22 10:17] LABS: Basophils # (A) 0.1 k/uL (0-0.2); Basophils % (A) 1 %; Eosinophils # (A) 0.2 k/uL (0-0.7); Eosinophils % (A) 2 %; HCT 38.7 % (39.0-53.0); HGB 12.6 gm/dL (13.0-17.5); INR 2.8 (<1.2); Lymphocytes # (A) 0.8 k/uL (1.0-4.8); Lymphocytes % (A) 9 %; MCH 30.3 pg (25.0-35.0); MCHC 32.6 g/dL (31.0-37.0); MCV 92.9 fL (80.0-100.0); Mean Platelet Volume 6.9; Monocytes # (A) 0.5 k/uL (0-1.0); Monocytes % (A) 6 %; Neutrophils # (A) 6.7 k/uL (1.3-7.7); Neutrophils % (A) 79 %; Partial Thromboplastin Time 40.2 sec (22.0-30.0); Platelet Count 217 k/uL (150-450); Prothrombin Time 27.1 sec (9.0-12.0); RBC 4.16 m/uL (4.30-5.90); RDW 14.7 % (11.5-15.5); WBC 8.6 k/uL (3.8-10.6)
[2019-08-22 10:19] LABS: Albumin 4.1 g/dL (3.5-5.0); Calcium 9.3 mg/dL (8.4-10.2); Total Bilirubin 0.8 mg/dL (0.2-1.3); Total Protein 9.2 g/dL (6.3-8.2)
[2019-08-22 10:24] LABS: Potassium 4.9 mmol/L (3.5-5.1)
[2019-08-22 11:16] LABS: RBC,Urine >182 /hpf (0-5)
[2019-08-22 11:22] LABS: Appearance,Urine Bloody (Clear); Color,Urine Red
[2019-08-22] MEDS ORDERED: cefTRIAXone 1,000 MG VIAL (IM USE) IM STA (11:53)
[2019-08-22 12:11] VITALS: BP 136/53; PULSE 55; RESP 18
[2019-08-22] MEDS ORDERED: cefTRIAXone IN SWFI 1,000 MG/10 ML SYRINGE IVP STA (12:13)
== END 2019-08-22 12:21 | disposition home or self-care (01) ==
LOC: EC 09:03
DX: N39.0 Urinary tract infection, site not specified (principal); I10 Essential (primary) hypertension; I49.9 Cardiac arrhythmia, unspecified; M19.90 Unspecified osteoarthritis, unspecified site; Z79.01 Long term (current) use of anticoagulants; Z79.899 Other long term (current) drug therapy; Z88.8 Allergy status to other drugs, medicaments and biological substances; Z87.891 Personal history of nicotine dependence; Z85.46 Personal history of malignant neoplasm of prostate; Z98.52 Vasectomy status; Z95.4 Presence of other heart-valve replacement
CPT/HCPCS: 36415; 80053; 81001; 85025; 85610; 85730; 87086; 99284

== ENCOUNTER 2019-08-26 12:14 | Emergency (ER) | payer MEDICARE ==
[2019-08-26 12:20] VITALS: RESP 18
[2019-08-26 13:04] LABS: Basophils # (A) 0.1 k/uL (0-0.2); Basophils % (A) 1 %; Eosinophils # (A) 0.2 k/uL (0-0.7); Eosinophils % (A) 2 %; HCT 35.2 % (39.0-53.0); HGB 11.4 gm/dL (13.0-17.5); Lymphocytes # (A) 0.7 k/uL (1.0-4.8); Lymphocytes % (A) 8 %; MCH 30.3 pg (25.0-35.0); MCHC 32.3 g/dL (31.0-37.0); MCV 93.6 fL (80.0-100.0); Mean Platelet Volume 6.9; Monocytes # (A) 0.6 k/uL (0-1.0); Monocytes % (A) 6 %; Neutrophils # (A) 7.8 k/uL (1.3-7.7); Neutrophils % (A) 81 %; Platelet Count 215 k/uL (150-450); RBC 3.76 m/uL (4.30-5.90); WBC 9.6 k/uL (3.8-10.6)
[2019-08-26 13:17] LABS: Albumin 3.7 g/dL (3.5-5.0); Calcium 9.2 mg/dL (8.4-10.2); Potassium 4.9 mmol/L (3.5-5.1); Total Bilirubin 0.4 mg/dL (0.2-1.3); Total Protein 8.2 g/dL (6.3-8.2)
--- NOTE | 2019-08-26 13:28 | ED ---
General Adult HPI - General Chief complaint: Recheck/Abnormal Lab/Rx Stated complaint: Bleeding/abn labs Time Seen by Provider: 08/26/19 12:15 Source: patient, RN notes reviewed Mode of arrival: wheelchair Limitations: no limitations - History of Present Illness Initial comments: This is a 79-year-old male who presents emergency Department stating he is urinating blood. Patient states his INR was tested today and it was over 8. Patient states he last took last evening. Patient states she's also been on Bactrim recently for a possible urinary tract infection. Patient denies any abdominal pain. Patient denies lightheadedness or dizziness per patient denies any palpations. Patient denies chest pain difficulty breathing or shortness of breath. Patient's only complaint currently is hematuria. - Related Data Home Medications Medication Instructions Recorded Confirmed Metoprolol Tartrate [Lopressor] 50 mg PO BID 11/18/16 08/26/19 Folic Acid 0.8 mg PO DAILY@1500 11/02/17 08/26/19 Amiodarone [Cordarone] 200 mg PO DAILY 05/14/19 08/26/19 HYDROcodone/APAP 5-325MG [[place] 1 tab PO BID PRN 05/14/19 08/26/19 5-325] Warfarin [Coumadin] 2.5 mg PO TUWEFR 05/14/19 08/26/19 Warfarin [Coumadin] 5 mg PO SUMOTHSA 05/14/19 08/26/19 amLODIPine [Norvasc] 5 mg PO DAILY 05/14/19 08/26/19 Allergies Allergy/AdvReac Type Severity Reaction Status Date / Time dopamine Allergy "WAS TOLD Verified 08/26/19 12:31 NOT TO HAVE RX AGAIN,VERY ILL STATES ALMOST " Review of Systems ROS Statement: Those systems with pertinent positive or pertinent negative responses have been documented in the HPI. ROS Other: All systems not noted in ROS Statement are negative. Past Medical History Past Medical History: Cancer, Hypertension, Osteoarthritis (OA), Prostate Disorder Additional Past Medical History / Comment(s): ARRYTHYTHMIA,AORTIC VALVE REPLACEMENT,PROSTATE CANCER, History of Any Multi-Drug Resistant Organisms: None Reported Past Surgical History: Tonsillectomy Additional Past Surgical History / Comment(s): VASCECTOMY,AORTIC VALVE REPLACEMENT, CAROTID ARTERY RIGHT SIDE Past Anesthesia/Blood Transfusion Reactions: No Reported Reaction Past Psychological History: Depression Smoking Status: Former smoker Past Alcohol Use History: None Reported Past Drug Use History: None Reported - Past Family History Mother Family Medical History: Cancer General Exam - General Exam Comments Initial Comments: GENERAL: Patient is well-developed and well-nourished. Patient is nontoxic and well- hydrated and is in no acute distress. ENT: Neck is soft and supple. No significant lymphadenopathy is noted. Oropharynx is clear. Moist mucous membranes. Neck has full range of motion without eliciting any pain. EYES: The sclera were anicteric and conjunctiva were pink and moist. Extraocular movements were intact and pupils were equal round and reactive to light. Eyelids were unremarkable. PULMONARY: Unlabored respirations. Good breath sounds bilaterally. No audible rales r honchi or wheezing was noted. CARDIOVASCULAR: There is a regular rate and rhythm without any murmurs gallops or rubs. ABDOMEN: Soft and nontender with normal bowel sounds. No palpable organomegaly was noted. There is no palpable pulsatile mass. SKIN: Skin is clear with no lesions or rashes and otherwise unremarkable. NEUROLOGIC: Patient is alert and oriented x3. Cranial nerves II through XII are grossly intact. Motor and sensory are also intact. Normal speech, volume and content. Symmetrical smile. MUSCULOSKELETAL: Normal extremities with adequate strength and full range of motion. LYMPHATICS: No significant lymphadenopathy is noted PSYCHIATRIC: Normal psychiatric evaluation. Limitations: no limitations Course Vital Signs 08/26/19 12:16 Temperature 97.6 F Pulse Rate 54 L Respiratory 18 Rate Blood Pressure 139/53 O2 Sat by Pulse 95 Oximetry Medical Decision Making - Medical Decision Making Patient's INR was 7.4 which was down from office INR. Patient's hemoglobin was slightly decreased. I spoke with because Dr. Segal wanted to follow-up in the office. - Lab Data Result diagrams: 08/26/19 12:45 08/26/19 12:45 Lab Results 08/26/19 08/26/19 08/26/19 Range/Units 12:45 12:45 12:45 WBC 9.6 (3.8-10.6) k/uL RBC 3.76 L (4.30-5.90) m/uL Hgb 11.4 L (13.0-17.5) gm/dL Hct 35.2 L (39.0-53.0) % MCV 93.6 (80.0-100.0) fL MCH 30.3 (25.0-35.0) pg MCHC 32.3 (31.0-37.0) g/dL RDW 15.0 (11.5-15.5) % Plt Count 215 (150-450) k/uL Neutrophils % 81 % Lymphocytes % 8 % Monocytes % 6 % Eosinophils % 2 % Basophils % 1 % Neutrophils # 7.8 H (1.3-7.7) k/uL Lymphocytes # 0.7 L (1.0-4.8) k/uL Monocytes # 0.6 (0-1.0) k/uL Eosinophils # 0.2 (0-0.7) k/uL Basophils # 0.1 (0-0.2) k/uL PT 72.0 H (9.0-12.0) sec INR 7.4 H* (<1.2) APTT 52.4 H (22.0-30.0) sec Sodium 140 (137-145) mmol/L Potassium 4.9 (3.5-5.1) mmol/L Chloride 108 H (98-107) mmol/L Carbon Dioxide 22 (22-30) mmol/L Anion Gap 10 mmol/L BUN 20 (9-20) mg/dL Creatinine 1.59 H (0.66-1.25) mg/dL Est GFR (CKD-EPI)AfAm 47 (>60 ml/min/1.73 sqM) Est GFR (CKD-EPI)NonAf 41 (>60 ml/min/1.73 sqM) Glucose 86 (74-99) mg/dL Calcium 9.2 (8.4-10.2) mg/dL Total Bilirubin 0.4 (0.2-1.3) mg/dL AST 38 (17-59) U/L ALT 26 (21-72) U/L Alkaline Phosphatase 106 (38-126) U/L Total Protein 8.2 (6.3-8.2) g/dL Albumin 3.7 (3.5-5.0) g/dL Disposition Clinical Impression: Hematuria, Coagulopathy Disposition: HOME SELF-CARE Instructions (If sedation given, give patient instructions): Hematuria (ED) Additional Instructions: Patient should follow-up with his primary medical care doctor as well as Dr. Prasad and then follow up with Dr. Nava. Patient should return to the emergency department if bleeding is worse or if he has any new or worsening symptoms. Patient should stop Coumadin patient should also stop the Bactrim Is patient prescribed a controlled substance at d/c from ED?: No Referrals: Coleman Nugent MD [Primary Care Provider] - 1-2 days Time of Disposition: 14:56
[2019-08-26 14:08] LABS: Partial Thromboplastin Time 52.4 sec (22.0-30.0)
[2019-08-26 14:11] LABS: INR 7.4 (<1.2)
[2019-08-26 15:17] VITALS: BP 149/67; PULSE 59; TEMP 98.2
== END 2019-08-26 15:15 | disposition home or self-care (01) ==
LOC: EC 12:14
DX: D68.9 Coagulation defect, unspecified (principal); R31.9 Hematuria, unspecified; I10 Essential (primary) hypertension; M19.90 Unspecified osteoarthritis, unspecified site; Z87.891 Personal history of nicotine dependence; Z88.8 Allergy status to other drugs, medicaments and biological substances; Z79.01 Long term (current) use of anticoagulants; Z79.891 Long term (current) use of opiate analgesic; Z79.899 Other long term (current) drug therapy; Z85.46 Personal history of malignant neoplasm of prostate; Z95.2 Presence of prosthetic heart valve; Z86.79 Personal history of other diseases of the circulatory system; Z98.52 Vasectomy status
CPT/HCPCS: 36415; 80053; 85025; 85610; 85730; 99283

== ENCOUNTER 2021-03-02 10:52 | Inpatient (IN) | payer MEDICARE ==
[2021-03-02] MEDS ORDERED: SODIUM CHLORIDE 0.9% 500 ML 500 ML IV STA (11:12)
--- NOTE | 2021-03-02 11:17 | ED ---
General Adult HPI - General Chief complaint: Syncope Stated complaint: syncope Time Seen by Provider: 03/02/21 11:03 Source: patient Mode of arrival: wheelchair Limitations: no limitations - History of Present Illness Initial comments: 80-year-old male with a past medical history of hypertension, prostate disorder, arrhythmia, aortic valve replacement on Coumadin presents to the emergency room for a chief complaint of syncope. Patient reports that he was leaning over feeding the cats and started to get lightheaded. States that he then lost consciousness and fell to the ground. Patient states that he has not had any chest pain. He states he has had shortness of breath on and off for quite some time however denies any worsening recently. Patient does take Coumadin.Patient has no other complaints at this time including shortness of breath, chest pain, abdominal pain, nausea or vomiting, headache, or visual changes. - Related Data Home Medications Medication Instructions Recorded Confirmed RX: Metoprolol Tartrate [Lopressor] 50 mg PO BID 11/18/16 03/02/21 Amiodarone [Cordarone] 200 mg PO DAILY 05/14/19 03/02/21 RX: HYDROcodone/APAP 5-325MG 1 tab PO BID PRN 05/14/19 03/02/21 [[place] 5-325] RX: Warfarin [Coumadin] 5 mg PO SUMOTUWEFRSA 05/14/19 03/02/21 Warfarin [Coumadin] 2.5 mg PO TH 05/14/19 03/02/21 amLODIPine [Norvasc] 5 mg PO BID 05/14/19 03/02/21 Allergies Allergy/AdvReac Type Severity Reaction Status Date / Time dopamine Allergy "WAS TOLD Verified 03/02/21 11:45 NOT TO HAVE RX AGAIN,VERY ILL STATES ALMOST " Review of Systems ROS Statement: Those systems with pertinent positive or pertinent negative responses have been documented in the HPI. ROS Other: All systems not noted in ROS Statement are negative. Past Medical History Past Medical History: Cancer, Hypertension, Osteoarthritis (OA), Prostate Disorder Additional Past Medical History / Comment(s): ARRYTHYTHMIA,AORTIC VALVE REPLACEMENT,PROSTATE CANCER, History of Any Multi-Drug Resistant Organisms: None Reported Past Surgical History: Tonsillectomy Additional Past Surgical History / Comment(s): VASCECTOMY,AORTIC VALVE REPLACEM ENT, CAROTID ARTERY RIGHT SIDE Past Anesthesia/Blood Transfusion Reactions: No Reported Reaction Past Psychological History: Depression Smoking Status: Former smoker Past Alcohol Use History: None Reported Past Drug Use History: None Reported - Past Family History Mother Family Medical History: Cancer General Exam Limitations: no limitations General appearance: alert, in no apparent distress Head exam: Present: atraumatic, normocephalic, normal inspection Eye exam: Present: normal appearance, PERRL, EOMI. Absent: scleral icterus, conjunctival injection, periorbital swelling ENT exam: Present: normal exam, mucous membranes moist Neck exam: Present: normal inspection. Absent: tenderness, meningismus, lymphadenopathy Respiratory exam: Present: normal lung sounds bilaterally. Absent: respiratory distress, wheezes, rales, rhonchi, stridor Cardiovascular Exam: Present: regular rate, normal rhythm, normal heart sounds GI/Abdominal exam: Present: soft, normal bowel sounds. Absent: distended, tenderness, guarding, rebound, rigid Course Vital Signs 03/02/21 10:58 Temperature 97.6 F Pulse Rate 57 L Respiratory 18 Rate Blood Pressure 145/54 O2 Sat by Pulse 93 L Oximetry EKG Findings - EKG Comments: EKG Findings:: sinus reshma, left bundle vent rate 54, SC int 234, QTc 508 Medical Decision Making - Medical Decision Making Patient is slightly hypoxic, 93% on room air. Patient has had mild shortness of breath. CBC does reveal leukocytosis with a left shift. Chest x-ray does rev eal left mid and lower lobe pneumonia. Influenza, RSV, coronavirus are negative. At this time patient will admit patient for cardiogenic consultation given syncopal event as well as IV antibiotics. Lactic and blood culture pending. - Lab Data Result diagrams: 03/02/21 11:39 03/02/21 11:39 Lab Results 03/02/21 03/02/21 03/02/21 Range/Units 11:39 11:39 11:39 WBC 16.5 H (3.8-10.6) k/uL RBC 4.13 L (4.30-5.90) m/uL Hgb 12.7 L (13.0-17.5) gm/dL Hct 38.2 L (39.0-53.0) % MCV 92.6 (80.0-100.0) fL MCH 30.8 (25.0-35.0) pg MCHC 33.2 (31.0-37.0) g/dL RDW 14.4 (11.5-15.5) % Plt Count 189 (150-450) k/uL MPV 7.7 Neutrophils % 89 % Lymphocytes % 3 % Monocytes % 6 % Eosinophils % 1 % Basophils % 0 % Neutrophils # 14.8 H (1.3-7.7) k/uL Lymphocytes # 0.5 L (1.0-4.8) k/uL Monocytes # 1.0 (0-1.0) k/uL Eosinophils # 0.1 (0-0.7) k/uL Basophils # 0.1 (0-0.2) k/uL PT 34.4 H (9.0-12.0) sec INR 3.6 H (<1.2) APTT 38.5 H (22.0-30.0) sec Sodium 139 (137-145) mmol/L Potassium 4.8 (3.5-5.1) mmol/L Chloride 106 (98-107) mmol/L Carbon Dioxide 27 (22-30) mmol/L Anion Gap 6 mmol/L BUN 18 (9-20) mg/dL Creatinine 0.97 (0.66-1.25) mg/dL Est GFR (CKD-EPI)AfAm 86 (>60 ml/min/1.73 sqM) Est GFR (CKD-EPI)NonAf 74 (>60 ml/min/1.73 sqM) Glucose 99 (74-99) mg/dL Calcium 8.9 (8.4-10.2) mg/dL Magnesium 2.1 (1.6-2.3) mg/dL Total Bilirubin 0.6 (0.2-1.3) mg/dL AST 54 (17-59) U/L ALT 19 (4-49) U/L Alkaline Phosphatase 112 (38-126) U/L Troponin I (0.000-0.034) ng/mL Total Protein 8.0 (6.3-8.2) g/dL Albumin 3.7 (3.5-5.0) g/dL Influenza Type A (PCR) (Not Detectd) Influenza Type B (PCR) (Not Detectd) RSV (PCR) (Not Detectd) SARS-CoV-2 (PCR) (Not Detectd) 03/02/21 03/02/21 Range/Units 11:39 11:39 WBC (3.8-10.6) k/uL RBC (4.30-5.90) m/uL Hgb (13.0-17.5) gm/dL Hct (39.0-53.0) % MCV (80.0-100.0) fL MCH (25.0-35.0) pg MCHC (31.0-37.0) g/dL RDW (11.5-15.5) % Plt Count (150-450) k/uL MPV Neutrophils % % Lymphocytes % % Monocytes % % Eosinophils % % Basophils % % Neutrophils # (1.3-7.7) k/uL Lymphocytes # (1.0-4.8) k/uL Monocytes # (0-1.0) k/uL Eosinophils # (0-0.7) k/uL Basophils # (0-0.2) k/uL PT (9.0-12.0) sec INR (<1.2) APTT (22.0-30.0) sec Sodium (137-145) mmol/L Potassium (3.5-5.1) mmol/L Chloride (98-107) mmol/L Carbon Dioxide (22-30) mmol/L Anion Gap mmol/L BUN (9-20) mg/dL Creatinine (0.66-1.25) mg/dL Est GFR (CKD-EPI)AfAm (>60 ml/min/1.73 sqM) Est GFR (CKD-EPI)NonAf (>60 ml/min/1.73 sqM) Glucose (74-99) mg/dL Calcium (8.4-10.2) mg/dL Magnesium (1.6-2.3) mg/dL Total Bilirubin (0.2-1.3) mg/dL AST (17-59) U/L ALT (4-49) U/L Alkaline Phosphatase (38-126) U/L Troponin I 0.016 (0.000-0.034) ng/mL Total Protein (6.3-8.2) g/dL Albumin (3.5-5.0) g/dL Influenza Type A (PCR) Not Detected (Not Detectd) Influenza Type B (PCR) Not Detected (Not Detectd) RSV (PCR) Not Detected (Not Detectd) SARS-CoV-2 (PCR) Not Detected (Not Detectd) Disposition Clinical Impression: Syncope, Pneumonia, Leukocytosis Disposition: ADMITTED IP TO THIS HOSP Is patient prescribed a controlled substance at d/c from ED?: No Referrals: Coleman Nugent MD [Primary Care Provider] - 1-2 days Time of Disposition: 13:35
[2021-03-02 11:59] LABS: Basophils # (A) 0.1 k/uL (0-0.2); Basophils % (A) 0 %; Eosinophils # (A) 0.1 k/uL (0-0.7); Eosinophils % (A) 1 %; HCT 38.2 % (39.0-53.0); HGB 12.7 gm/dL (13.0-17.5); Lymphocytes # (A) 0.5 k/uL (1.0-4.8); Lymphocytes % (A) 3 %; MCH 30.8 pg (25.0-35.0); MCHC 33.2 g/dL (31.0-37.0); MCV 92.6 fL (80.0-100.0); Mean Platelet Volume 7.7; Monocytes % (A) 6 %; Neutrophils # (A) 14.8 k/uL (1.3-7.7); Neutrophils % (A) 89 %; Platelet Count 189 k/uL (150-450); RBC 4.13 m/uL (4.30-5.90); RDW 14.4 % (11.5-15.5); WBC 16.5 k/uL (3.8-10.6)
[2021-03-02 12:11] LABS: INR 3.6 (<1.2); Partial Thromboplastin Time 38.5 sec (22.0-30.0); Prothrombin Time 34.4 sec (9.0-12.0)
[2021-03-02 12:12] LABS: Albumin 3.7 g/dL (3.5-5.0); Calcium 8.9 mg/dL (8.4-10.2); Magnesium 2.1 mg/dL (1.6-2.3); Potassium 4.8 mmol/L (3.5-5.1); Total Bilirubin 0.6 mg/dL (0.2-1.3)
--- NOTE | 2021-03-02 12:21 | XR ---
EXAMINATION TYPE: XR chest 2V DATE OF EXAM: 03/02/2021 COMPARISON: 11/02/2017 INDICATION: Syncope TECHNIQUE: Frontal and lateral views of the chest are obtained. FINDINGS: The heart size is enlarged. The pulmonary vasculature is normal. Mild diffuse infiltrate is through the left mid and lower lung field. IMPRESSION: 1. Mild left mid and lower lung field infiltrate is nonspecific. Atelectasis and mild infectious etio logies could be considered follow up studies can be performed as clinically indicated. 2. Cardiomegaly
--- NOTE | 2021-03-02 12:32 | CT ---
EXAMINATION TYPE: CT brain wo con DATE OF EXAM: 03/02/2021 COMPARISON: None HISTORY: Fall with possible injury. CT DLP: 1173.[address] of the brain was performed. The ventricles, basal cisterns and sulci overlying the cerebral convexities demonstrate mild enlargem ent. There is no evidence for intracranial hemorrhage or sulcal effacement. There is decreased attenuation about the periventricular white matter and deep white matter of both c erebral hemispheres, compatible with chronic small vessel ischemia. Differential diagnosis does inclu de demyelination. No mass effects are seen.No midline shift. Osseous calvarium is intact. If symptoms persist consider MRI. IMPRESSION: 1. Age related atrophic and chronic small vessel ischemic change without acute intracranial process s een at this time.
[2021-03-02] MEDS ORDERED: cefTRIAXone IN SWFI 1,000 MG/10 ML SYRINGE IVP STA (13:14)
[2021-03-02] MEDS ORDERED: AZITHROMYCIN 500 MG in SODIUM CHLORIDE 0.9% 250 ML IVPB STA (13:14)
[2021-03-02] MEDS ORDERED: PNEUMONIA PROTOCOL UTILIZED 1 EACH MISC PO PRN (13:36)
[2021-03-02] MEDS ORDERED: SODIUM CHLORIDE 0.9% 1,000 ML IV SCH (13:45)
[2021-03-02 14:03] LABS: Appearance,Urine Clear (Clear); Bilirubin,Urine Negative (Negative); Blood,Urine Small (Negative); Color,Urine Yellow; Glucose,Urine (UA) Negative (Negative); Ketones,Urine Negative (Negative); Leukocyte Esterase,Urine Negative (Negative); Mucus,Urine Rare /hpf; Nitrite,Urine Negative (Negative); PH, Urine 6.5 (5.0-8.0); Protein,Urine Trace (Negative); RBC,Urine 1 /hpf (0-5); Specific Gravity,Urine 1.014 (1.001-1.035); Squamous Epithelial Cell,Urine <1 /hpf (0-4); Urobilinogen,Urine <2.0 mg/dL (<2.0); WBC,Urine 1 /hpf (0-5)
[2021-03-02] MEDS ORDERED: HYDROcodone/APAP 5-325MG 1 EACH TAB PO PRN ×2 (17:07→18:02)
--- NOTE | 2021-03-02 17:24 | P.HPIM ---
History of Present Illness H&P Date: 03/02/21 Chief Complaint: Syncope 80-year-old male with past medical history of hypertension, prostate disorder, arrhythmia, aortic valve replacement early taking Coumadin therapy for valve replacement she presented to the emergency department after a syncopal episode. He states he felt lightheaded and passed out. Patient had extensive diagnostic workup in the emergency department-CT of the head no acute changes, chest x-ray shows infiltrates indicative of pneumonia-leukocytosis present on initial labs. Patient has elevated INR of 3.6pharmacy to dosefor mechanical aortic heart valve. Patient denies fever,shortness of breath, chest pain, palpitations, abdominal pain nausea, vomiting, or diarrhea. Patient endorses generalized weakness with associated chills intermittently. Review of Systems Constitutional: Reports chills Eyes: bilateral as per HPI Ears: bilateral: decreased hearing Ears, nose, mouth and throat: Reports as per HPI Cardiovascular: Reports lightheadedness Respiratory: Reports respiratory infections Musculoskeletal: Reports as per HPI Neurological: Reports weakness Endocrine: Reports as per HPI Hematologic/Lymphatic: Reports as per HPI Allergic/Immunologic: Reports as per HPI Past Medical History Past Medical History: Cancer, Hypertension, Osteoarthritis (OA), Prostate Disorder Additional Past Medical History / Comment(s): ARRYTHYTHMIA,AORTIC VALVE REPLACEMENT,PROSTATE CANCER, History of Any Multi-Drug Resistant Organisms: None Reported Past Surgical History: Tonsillectomy Additional Past Surgical History / Comment(s): VASCECTOMY,AORTIC VALVE REPLACEMENT, CAROTID ARTERY RIGHT SIDE Past Anesthesia/Blood Transfusion Reactions: No Reported Reaction Past Psychological History: Depression Smoking Status: Former smoker Past Alcohol Use History: None Reported Past Drug Use History: None Reported - Past Family History Mother Family Medical History: Cancer Medications and Allergies Home Medications and Allergies Comment(s): Medications and ALLERGIES reviewed Pharmacy to dose Coumadin based on aortic mechanical heart valve Home Medications Medication Instructions Recorded Confirmed Type Metoprolol Tartrate [Lopressor] 50 mg PO BID 11/18/16 03/02/21 History Amiodarone [Cordarone] 200 mg PO DAILY 05/14/19 03/02/21 History HYDROcodone/APAP 5-325MG [[place] 1 tab PO BID PRN 05/14/19 03/02/21 History 5-325] Warfarin [Coumadin] 2.5 mg PO TH 05/14/19 03/02/21 History Warfarin [Coumadin] 5 mg PO SUMOTUWEFRSA 05/14/19 03/02/21 History amLODIPine [Norvasc] 5 mg PO BID 05/14/19 03/02/21 History Allergies Allergy/AdvReac Type Severity Reaction Status Date / Time dopamine Allergy "WAS TOLD Verified 03/02/21 11:45 NOT TO HAVE RX AGAIN,VERY ILL STATES ALMOST " Physical Exam Vitals: Vital Signs Temp Pulse Resp BP Pulse Ox 03/02/21 16:30 64 16 175/75 91 L 03/02/21 16:00 63 18 159/50 03/02/21 15:30 61 20 158/60 90 L 03/02/21 15:00 62 9 L 161/72 90 L 03/02/21 14:30 61 22 153/64 92 L 03/02/21 13:41 63 16 186/79 92 L 03/02/21 11:32 26 H 03/02/21 10:58 97.6 F 57 L 18 145/54 93 L Intake and Output 03/02/21 03/02/21 03/02/21 06:59 14:59 22:59 Other: Weight 122.47 kg - Constitutional General appearance: mild distress - EENT Eyes: EOMI, PERRLA ENT: normal oropharynx Ears: bilateral: normal - Neck Neck: normal ROM Carotids: bilateral: upstroke normal, upstroke delayed, upstroke diminished, upstroke bounding, bruit absent, bruit present Thyroid: bilateral: normal size - Respiratory Respiratory: bilateral: CTA (Anterior basis), diminished (Posterior bases) - Cardiovascular Paced rhythm Heart rate: 54 Heart sounds: normal: S1, S2 radial pulse Peripheral Pulses: bilateral: Normal dorsalis pedis Peripheral Pulses: bilateral: Normal - Gastrointestinal General gastrointestinal: normal bowel sounds - Neurologic Neurologic: CNII-XII intact - Musculoskeletal Musculoskeletal: generalized weakness - Psychiatric Psychiatric: A&O x's 3, appropriate affect, intact judgment & insight Results CBC & Chem 7: 03/02/21 11:39 03/02/21 11:39 Labs: Abnormal Lab Results - Last 24 Hours (Table) 03/02/21 03/02/21 03/02/21 Range/Units 11:39 11:39 13:21 WBC 16.5 H (3.8-10.6) k/uL RBC 4.13 L (4.30-5.90) m/uL Hgb 12.7 L (13.0-17.5) gm/dL Hct 38.2 L (39.0-53.0) % Neutrophils # 14.8 H (1.3-7.7) k/uL Lymphocytes # 0.5 L (1.0-4.8) k/uL PT 34.4 H (9.0-12.0) sec INR 3.6 H (<1.2) APTT 38.5 H (22.0-30.0) sec Urine Protein Trace H (Negative) Urine Blood Small H (Negative) Urine Mucus Rare H (None) /hpf Chest x-ray: report reviewed CT scan - chest: report reviewed Thrombosis Risk Factor Assmnt - Choose All That Apply Each Factor Represents 1 point: Obesity (BMI >25) Each Risk Factor Represents 3 Points: Age 75 years or older Thrombosis Risk Factor Assessment Total Risk Factor Score: 4 Thrombosis Risk Factor Assessment Level: Moderate Risk Assessment and Plan Assessment: Syncopal episode Community-acquired pneumonia Leukocytosis Prostate disorder History of prostate cancer Osteoarthritis Hypertension Aortic valve replacement History of arrhythmia Pacemaker Mixed anxiety and depression History of Carotid surgery right-sided Former smoker Full code Plan: Syncopal episodeconsultation with cardiology associates for recommendations and treatment plan Community-acquired pneumoniacontinue IV antibiotics of Zithromax and Rocephinawaiting sputum culture Leukocytosiscontinue to trend Hypertension continue home medications Elevated INRpharmacy to dose for mechanical aortic valve Continue home medications Continue medical management Further recommendations to come based on patient's clinical status Time with Patient: Greater than 30
[2021-03-02] MEDS: HYDROcodone/APAP 5-325MG 1 EACH TAB PO PRN (18:47)
[2021-03-02] MEDS: amLODIPine 5 MG TAB PO SCH (20:47)
[2021-03-02] MEDS: METOPROLOL TARTRATE 50 MG TAB PO SCH (20:47)
[2021-03-03] MEDS: HYDROcodone/APAP 5-325MG 1 EACH TAB PO PRN ×3 (03:07→21:27)
[2021-03-03 06:10] LABS: Mycoplasma IgG Antibody (EIA) 1.9 INDEX (<=0.90); Mycoplasma IgM Antibody 0.57 INDEX (<=0.90)
[2021-03-03 06:40] LABS: Basophils # (A) 0.1 k/uL (0-0.2); Basophils % (A) 1 %; Eosinophils # (A) 0.4 k/uL (0-0.7); Eosinophils % (A) 3 %; HCT 40.5 % (39.0-53.0); HGB 12.6 gm/dL (13.0-17.5); Lymphocytes # (A) 0.9 k/uL (1.0-4.8); Lymphocytes % (A) 6 %; MCH 29.4 pg (25.0-35.0); MCHC 31.2 g/dL (31.0-37.0); MCV 94.3 fL (80.0-100.0); Mean Platelet Volume 7.8; Monocytes % (A) 7 %; Neutrophils # (A) 11.1 k/uL (1.3-7.7); Neutrophils % (A) 82 %; Platelet Count 194 k/uL (150-450); Prothrombin Time 38.8 sec (9.0-12.0); RBC 4.29 m/uL (4.30-5.90); RDW 14.9 % (11.5-15.5); WBC 13.6 k/uL (3.8-10.6)
--- NOTE | 2021-03-03 07:10 | P.PN ---
Subjective Progress Note Date: 03/03/21 Principal diagnosis: Community-acquired pneumonia Syncopal episode Mildly elevated troponins 80-year-old male with past medical history of hypertension, prostate disorder, arrhythmia, aortic valve replacementcurrently taking Coumadin therapy for valve replacement. He presented to the emergency department after a syncopal episode. He states he felt lightheaded and passed out while doing chores outside. He states he felt lightheaded and passed out. Patient had extensive diagnostic workup in emergency departmentCT of the headno acute changes, chest x-ray shows infiltrates indicated of pneumonia. CBC shows leukocytosis with left shift. He had elevated INR 3.6pharmacy to dose Coumadin for aortic valve replacement. Patient denies fever, shortness of breath, chest pain, palpitations, abdominal pain, nausea, vomiting, or diarrhea. Patient endorses generalized weakness with associated chills intermittently. 03/03/2021 Evaluated patient this a.m., resting comfortably in bed. Patient denies fever, chills, shortness of breath, palpitations, abdominal pain, nausea, vomiting, or diarrhea this time. She has elevated Procalcitonin time, and chest x-ray and CBC are indicative of community-acquired pneumonia. Patient had syncopal episode prior to admissionawaiting recommendations from cardiology for treatment plan. he currently no acute signs of distress. Objective - Vital Signs Vital signs: Vital Signs Temp 98.1 F 03/03/21 01:52 Pulse 57 L 03/03/21 01:52 Resp 19 03/03/21 01:52 BP 152/67 03/03/21 01:52 Pulse Ox 93 L 03/03/21 01:52 Intake & Output 03/02/21 03/03/21 03/03/21 18:59 06:59 18:59 Intake Total 340 Balance 340 Weight 122.47 kg Intake: Oral 340 Other: # Voids 3 - Constitutional General appearance: Present: cooperative - EENT Eyes: Present: EOMI, PERRLA ENT: Present: hard of hearing Ears: bilateral: normal - Neck Neck: Present: normal ROM Carotids: bilateral: upstroke normal Thyroid: bilateral: normal size - Respiratory Respiratory: bilateral: CTA (Anterior lung minor), diminished (Posterior lung minor) - Cardiovascular Details: Paced rhythm Heart rate: 62 Rhythm: regular Heart sounds: normal: S1, S2 - Peripheral pulses radial pulse Peripheral Pulses: bilateral: Normal dorsalis pedis Peripheral Pulses: bilateral: Normal - Gastrointestinal General gastrointestinal: Present: normal bowel sounds - Integumentary Integumentary: Present: normal turgor - Neurologic Neurologic: Present: CNII-XII intact - Musculoskeletal Musculoskeletal: Present: generalized weakness - Psychiatric Psychiatric: Present: A&O x's 3, appropriate affect, intact judgment & insight - Allied health notes Allied health notes reviewed: nursing - Labs CBC & Chem 7: 03/03/21 05:33 03/02/21 11:39 Labs: Abnormal Lab Results - Last 24 Hours (Table) 03/02/21 03/02/21 03/02/21 Range/Units 11:39 11:39 13:21 WBC 16.5 H (3.8-10.6) k/uL RBC 4.13 L (4.30-5.90) m/uL Hgb 12.7 L (13.0-17.5) gm/dL Hct 38.2 L (39.0-53.0) % Neutrophils # 14.8 H (1.3-7.7) k/uL Lymphocytes # 0.5 L (1.0-4.8) k/uL PT 34.4 H (9.0-12.0) sec INR 3.6 H (<1.2) APTT 38.5 H (22.0-30.0) sec Procalcitonin (0.02-0.09) ng/mL Urine Protein Trace H (Negative) Urine Blood Small H (Negative) Urine Mucus Rare H (None) /hpf Mycoplasma pneumon IgG (<=0.90) INDEX 03/02/21 03/02/21 03/03/21 Range/Units 17:36 17:36 05:33 WBC 13.6 H (3.8-10.6) k/uL RBC 4.29 L (4.30-5.90) m/uL Hgb 12.6 L (13.0-17.5) gm/dL Hct (39.0-53.0) % Neutrophils # 11.1 H (1.3-7.7) k/uL Lymphocytes # 0.9 L (1.0-4.8) k/uL PT (9.0-12.0) sec INR (<1.2) APTT (22.0-30.0) sec Procalcitonin 0.13 H (0.02-0.09) ng/mL Urine Protein (Negative) Urine Blood (Negative) Urine Mucus (None) /hpf Mycoplasma pneumon IgG 1.90 H (<=0.90) INDEX 03/03/21 Range/Units 05:33 WBC (3.8-10.6) k/uL RBC (4.30-5.90) m/uL Hgb (13.0-17.5) gm/dL Hct (39.0-53.0) % Neutrophils # (1.3-7.7) k/uL Lymphocytes # (1.0-4.8) k/uL PT 38.8 H (9.0-12.0) sec INR 4.0 H (<1.2) APTT (22.0-30.0) sec Procalcitonin (0.02-0.09) ng/mL Urine Protein (Negative) Urine Blood (Negative) Urine Mucus (None) /hpf Mycoplasma pneumon IgG (<=0.90) INDEX - Imaging and Cardiology Chest x-ray: report reviewed CT Scan - head: report reviewed Assessment and Plan Assessment: Syncopal episode Community-acquired pneumonia Leukocytosis Mildly elevated troponins Elevated pro-calcitonin time Prostate disorder History of prostate cancer Osteoarthritis Hypertension Aortic valve replacement History of arrhythmia Pacemaker Mixed anxiety and depression History of Carotid surgery right-sided Former smoker Full code Plan: Syncopal episodeconsultation with cardiology associates for recommendations and treatment plan Community-acquired pneumoniacontinue IV antibiotics of Zithromax and Rocephinawaiting sputum culture Leukocytosiscontinue to trend Hypertension continue home medications Elevated INRpharmacy to dose for mechanical aortic valve Continue home medications Continue medical management Further recommendations to come based on patient's clinical status Time with Patient: Greater than 30
[2021-03-03 07:13] LABS: ALT 18 U/L (4-49); AST 63 U/L (17-59); African American GFR (CKD) 79 (>60 ml/min/1.73 sqM); Albumin 3.2 g/dL (3.5-5.0); Albumin/Globulin Ratio 0.8; Alkaline Phosphatase 99 U/L (38-126); Anion Gap 8 mmol/L; Blood Urea Nitrogen 21 mg/dL (9-20); Calcium 8.6 mg/dL (8.4-10.2); Carbon Dioxide 24 mmol/L (22-30); Chloride 106 mmol/L (98-107); Glucose 98 mg/dL (74-99); Magnesium 2.1 mg/dL (1.6-2.3); Non-African American GFR(CKD) 69 (>60 ml/min/1.73 sqM); Potassium 4.6 mmol/L (3.5-5.1); Sodium 138 mmol/L (137-145); Total Bilirubin 0.7 mg/dL (0.2-1.3); Total Protein 7.2 g/dL (6.3-8.2)
[2021-03-03] MEDS: METOPROLOL TARTRATE 50 MG TAB PO SCH ×2 (08:17→21:29)
[2021-03-03] MEDS: AMIODARONE 200 MG TAB PO SCH (08:17)
[2021-03-03] MEDS: amLODIPine 5 MG TAB PO SCH ×2 (08:17→21:28)
[2021-03-03] MEDS ORDERED: LOSARTAN 25 MG TAB PO SCH (09:00)
--- NOTE | 2021-03-03 09:47 | XR ---
EXAMINATION TYPE: XR chest 2V DATE OF EXAM: 03/03/2021 CLINICAL HISTORY: pneumonia. TECHNIQUE: Frontal and lateral view of the chest. COMPARISON: 03/02/2021 FINDINGS: Sternotomy wires. Redemonstrated cardiomegaly. Pulmonary vasculature is normal. Mild to mo derate multilobar opacities appear similar. No pleural effusion. No pneumothorax seen, although the right apex is somewhat obscured by the neck soft tissue. IMPRESSION: Multilobar multifocal opacities of the bilateral lungs are not significantly changed versus 03/02/2021.
--- NOTE | 2021-03-03 12:00 | ECHOF ---
Referral Reason:syncope MEASUREMENTS -------- HEIGHT: 177.8 cm WEIGHT: 122.5 kg BP: RVIDd: 3.3 cm (< 3.3) IVSd: 1.7 cm (0.6 - 1.1) LVIDd: 4.5 cm (3.9 - 5.3) LVPWd: 1.8 cm (0.6 - 1.1) IVSs: 2.1 cm LVIDs: 3.6 cm LVPWs: 2.3 cm Ao Diam: 3.7 cm (2.0 - 3.7) AV Cusp: 1.3 cm (1.5 - 2.6) LA Diam: 4.6 cm (2.7 - 3.8) MV EXCURSION: 1.171 mm (> 18.000) MV EF SLOPE: 31 mm/s (70 - 150) EPSS: 1.5 cm MV E Parish: 1.77 m/s MV DecT: 576 ms MV A Parish: 1.56 m/s MV E/A Ratio: 1.13 AV maxP.36 mmHg AV meanP.94 mmHg RAP: 5.00 mmHg RVSP: 39.03 mmHg FINDINGS -------- This was a technically difficult study with suboptimal views. The left ventricular size is normal. There is severe concentric left ventricular hypertrophy. Ove rall left ventricular systolic function is low-normal with, an EF between 50 - 55 %. There is parad oxical/dysynergic septal motion consistent with post-operative status. The right ventricle is normal in size. The left atrium is mildly dilated. The right atrial size is normal. Lumason used Peak/mean gradient across the Aortic Valve is 16.36mmHg / 10.94mmHg. Normally functioning mechanica l prosthetic valve. There appears to be severe aortic regurgitation with pressure half time of 118m s and a wide turbulent diastolic flow seen in the LV. Shadowing from the mechanical aortic valve pre vents full evaluation and may consider ROBBY if clinically indicated. The mitral valve is normal. The mitral valve leaflets are moderately thickened. Moderate mitral a nnular calcification present. Mild mitral regurgitation is present. The peak and mean MV gradien ts are 14.41mmHg 6.43mmHg as measured by doppler. [id number] mitral stenosis. The tricuspid valve appears structurally normal. Moderate tricuspid regurgitation present. There is mild pulmonary hypertension. The right ventricular systolic pressure, as measured by Doppler, is 39.03mmHg. There is no pulmonic regurgitation present. The aortic root size is normal. IVC Not well visulized. There is no pericardial effusion. CONCLUSIONS -------- 1. The left ventricular size is normal. 2. There is severe concentric left ventricular hypertrophy. 3. Overall left ventricular systolic function is low-normal with, an EF between 50 - 55 %. 4. There is paradoxical/dysynergic septal motion consistent with post-operative status. 5. Peak/mean gradient across the Aortic Valve is 16.36mmHg / 10.94mmHg. 6. Normally functioning mechanical prosthetic valve. 7. There appears to be severe aortic regurgitation with pressure half time of 118ms and a wide turbul ent diastolic flow seen in the LV. Shadowing from the mechanical aortic valve prevents full evaluati on and may consider ROBBY if clinically indicated. 8. The mitral valve leaflets are moderately thickened. 9. Moderate mitral annular calcification present. 10. Mild mitral regurgitation is present. 11. The peak and mean MV gradients are 14.41mmHg 6.43mmHg as measured by doppler. 12. Czmkpjvv-pj-ketymp mitral stenosis. 13. Moderate tricuspid regurgitation present. 14. There is mild pulmonary hypertension. 15. The right ventricular systolic pressure, as measured by Doppler, is 39.03mmHg. 16. There is no pericardial effusion. SERVICE ATTENDANT [place]: Sarita Graf RDCS
--- NOTE | 2021-03-03 12:25 | P.CRDCN ---
History of Present Illness Consult date: 03/03/21 History of present illness: HISTORY OF PRESENT ILLNESS: This is a 80-year-old male with a past medical history significant for paroxysmal atrial fibrillation, hypertension, and mechanical aortic valve replacement 1998. Patient follows in the office with Dr. Prasad. We have been asked to see the patient in consultation for syncope. Patient examined at the bedside. Patient reports he was walking outside to feed some feral cats. After he bent down to place the food on the ground, he stood back up and states he fell down and passed out. He reports falling on his back. He doesnt remember passing out. He had no indication that he was going to fall and pass out. He denied any dizziness or lightheadedness. He reports having a recent fall also b ut states he tripped over something. He does report feeling lightheaded and dizzy the past two weeks when he exerts himself. He reports having chills and weakness over the past month. He denies having a fever though. He denies any cough or congestion. EKG reveals sinus bradycardia with first-degree AV block. Left axis deviation. Left bundle branch block. Chest xray multilobular multifocal opacities of the bilateral lungs Laboratory data: WBC 13.6. Hemoglobin 12.6. Platelet count 194. INR 4.0. Sodium 138. Potassium 4.6. BUN 21. Creatinine 1.03. Magnesium 2.1. Lactic acid 1.9. Current home cardiac medications include Norvasc 5 mg twice a day, Coumadin 2.5 mg on and 5 mg Monday and Monday, metoprolol titrate 50 mg twice a day, and amiodarone 200 mg daily Most recent echocardiogram obtained in 2018 revealed ejection fraction of 50% Cardiac catheterization history: In 1998 prior to his aortic valve replacement which showed normal coronary arteries REVIEW OF SYSTEMS: At the time of my exam: CONSTITUTIONAL: Denies fever or chills. HEENT: Denies blurred vision, vision changes, or eye pain. Denies hemoptysis CARDIOVASCULAR: Denies chest pain. Denies orthopnea. Denies PND. Denies palpitations RESPIRATORY: Denies shortness of breath. GASTROINTESTINAL: Denies abdominal pain. Denies nausea or vomiting. HEMATOLOGIC: Denies bleeding disorders. GENITOURINARY: Denies any blood in urine. SKIN: Denies pruitis. Denies rash. PHYSICAL EXAM: VITAL SIGNS: Reviewed. GENERAL: Well-developed in no acute distress. HEENT: Head is normocephalic. Pupils are equal, round. Sclerae anicteric. Mucous membranes of the mouth are moist. Neck supple. No JVD or thyromegaly LUNGS: Respirations even and unlabored. Lungs diminished bilaterally. HEART: Regular rate and rhythm. S1 and S2 heard. ABDOMEN: Soft. Nondistended. Nontender. EXTREMITIES: Normal range of motion. No clubbing or cyanosis. Peripheral pulses intact. No lower extremity edema NEUROLOGIC: Awake and alert. Oriented x 3. ASSESSMENT: Bilateral pneumonia Syncope Coumadin coagulopathy, INR 4.0 History of mechanical aortic valve replacement, 1998 History of paroxysmal atrial fibrillation/flutter Hypertension History of right carotid endarterectomy PLAN: Obtain 2D echo to assess cardiac structure and function Obtain orthostatic blood pressures Hold Coumadin until coagulopathy resolves. Monitor INR daily Further recommendations pending patient course Nurse practitioner note has been reviewed by physician. Signing provider agrees with the documented findings, assessment, and plan of care. Past Medical History Past Medical History: Cancer, Hypertension, Osteoarthritis (OA), Prostate Disorder Additional Past Medical History / Comment(s): ARRYTHYTHMIA,AORTIC VALVE REPLACEMENT,PROSTATE CANCER, History of Any Multi-Drug Resistant Organisms: None Reported Past Surgical History: Tonsillectomy Additional Past Surgical History / Comment(s): VASCECTOMY,AORTIC VALVE REPLACEMENT, CAROTID ARTERY RIGHT SIDE Past Anesthesia/Blood Transfusion Reactions: No Reported Reaction Past Psychological History: Depression Smoking Status: Former smoker Past Alcohol Use History: None Reported Additional Past Alcohol Use History / Comment(s): STARTED SMOKING AT AGE 13 QUIT 1998 [id number] Past Drug Use History: None Reported - Past Family History Mother Family Medical History: Cancer Medications and Allergies Home Medications Medication Instructions Recorded Confirmed Type Metoprolol Tartrate [Lopressor] 50 mg PO BID 11/18/16 03/02/21 History Amiodarone [Cordarone] 200 mg PO DAILY 05/14/19 03/02/21 History HYDROcodone/APAP 5-325MG [[place] 1 tab PO BID PRN 05/14/19 03/02/21 History 5-325] Warfarin [Coumadin] 2.5 mg PO TH 05/14/19 03/02/21 History Warfarin [Coumadin] 5 mg PO SUMOTUWEFRSA 05/14/19 03/02/21 History amLODIPine [Norvasc] 5 mg PO BID 05/14/19 03/02/21 History Allergies Allergy/AdvReac Type Severity Reaction Status Date / Time dopamine Allergy "WAS TOLD Verified 03/02/21 11:45 NOT TO HAVE RX AGAIN,VERY ILL STATES ALMOST " Physical Exam Vitals: Vital Signs Temp Pulse Pulse Resp BP BP Pulse Ox 03/03/21 07:49 99.0 F 58 L 16 145/66 92 L 03/03/21 01:52 98.1 F 57 L 19 152/67 93 L 03/02/21 19:53 97.6 F 61 20 150/70 94 L 03/02/21 17:28 97.5 F L 64 18 166/79 92 L 03/02/21 16:30 64 16 175/75 91 L 03/02/21 16:00 63 18 159/50 03/02/21 15:30 61 20 158/60 90 L 03/02/21 15:00 62 9 L 161/72 90 L 03/02/21 14:30 61 22 153/64 92 L 03/02/21 13:41 63 16 186/79 92 L 03/02/21 11:32 26 H 03/02/21 10:58 97.6 F 57 L 18 145/54 93 L Intake and Output 03/02/21 03/03/21 03/03/21 22:59 06:59 14:59 Intake Total 340 200 Balance 340 200 Intake: Oral 340 200 Other: # Voids 3 Weight 122.47 kg Results 03/03/21 05:33 03/03/21 05:33 Cardiac Enzymes 03/02/21 03/02/21 03/02/21 Range/Units 11:39 11:39 13:59 AST 54 (17-59) U/L Troponin I 0.016 0.017 (0.000-0.034) ng/mL 03/02/21 03/03/21 Range/Units 17:36 05:33 AST 63 H (17-59) U/L Troponin I 0.013 (0.000-0.034) ng/mL Coagulation 03/02/21 03/03/21 Range/Units 11:39 05:33 PT 34.4 H 38.8 H (9.0-12.0) sec APTT 38.5 H (22.0-30.0) sec CBC 03/02/21 03/03/21 Range/Units 11:39 05:33 WBC 16.5 H 13.6 H (3.8-10.6) k/uL RBC 4.13 L 4.29 L (4.30-5.90) m/uL Hgb 12.7 L 12.6 L (13.0-17.5) gm/dL Hct 38.2 L 40.5 (39.0-53.0) % Plt Count 189 194 (150-450) k/uL Comprehensive Metabolic Panel 03/02/21 03/03/21 Range/Units 11:39 05:33 Sodium 139 138 (137-145) mmol/L Potassium 4.8 4.6 (3.5-5.1) mmol/L Chloride 106 106 (98-107) mmol/L Carbon Dioxide 27 24 (22-30) mmol/L BUN 18 21 H (9-20) mg/dL Creatinine 0.97 1.03 (0.66-1.25) mg/dL Glucose 99 98 (74-99) mg/dL Calcium 8.9 8.6 (8.4-10.2) mg/dL AST 54 63 H (17-59) U/L ALT 19 18 (4-49) U/L Alkaline Phosphatase 112 99 (38-126) U/L Total Protein 8.0 7.2 (6.3-8.2) g/dL Albumin 3.7 3.2 L (3.5-5.0) g/dL Current Medications Generic Name Dose Route Start Last Admin Trade Name Freq PRN Reason Stop Dose Admin Hydrocodone Bitart/Acetaminophen 1 each 03/02/21 18:02 Hydrocodone/Apap 5-325mg 1 Each Tab PO TID PRN Pain Hydrocodone Bitart/Acetaminophen 2 each 03/02/21 18:03 03/03/21 03:07 Hydrocodone/Apap 5-325mg 1 Each Tab PO 2 each TID PRN Administration Pain Amiodarone HCl 200 mg 03/03/21 09:00 03/03/21 08:17 Amiodarone 200 Mg Tab PO 200 mg DAILY JON Administration Amlodipine Besylate 5 mg 03/02/21 21:00 03/03/21 08:17 Amlodipine 5 Mg Tab PO 5 mg BID JON Administration Sodium Chloride 1,000 mls @ 20 mls/hr 03/02/21 13:45 03/02/21 17:32 Saline 0.9% IV Not Given .Q24H JON Ceftriaxone Sodium 2 gm/ 50 mls @ 100 mls/hr 03/04/21 09:00 Sodium Chloride IVPB 03/06/21 09:01 Q24HR JON Azithromycin 500 mg/ Sodium 250 mls @ 250 mls/hr 03/04/21 09:00 Chloride IVPB DAILY JON Metoprolol Tartrate 50 mg 03/02/21 21:00 03/03/21 08:17 Metoprolol Tartrate 50 Mg Tab PO 50 mg BID JON Administration Miscellaneous Information 1 each 03/02/21 13:36 Pneumonia Protocol Utilized 1 Each Misc PO ONCE PRN Per Protocol Miscellaneous Information 1 each 03/02/21 17:09 Warfarin Per Pharmacy MISCELLANE DIRECTED PRN Per Protocol Protocol Warfarin Sodium 0 mg 03/03/21 18:00 Warfarin 0.5 Mg Tab PO 03/03/21 18:01 ONCE@1800 ONE Intake and Output 03/02/21 03/03/21 03/03/21 22:59 06:59 14:59 Intake Total 340 200 Balance 340 200 Intake: Oral 340 200 Other: # Voids 3 Weight 122.47 kg 03/03/21 05:33 03/03/21 05:33
[2021-03-03] MEDS ORDERED: SODIUM CHLORIDE 0.9% 1,000 ML IV SCH (13:00)
[2021-03-03 13:38] LABS: C Reactive Protein 7.5 mg/dL (<1.0)
[2021-03-03 13:50] LABS: D-Dimer 3.54 mg/L FEU (<0.60)
[2021-03-03] MEDS ORDERED: SODIUM CHLORIDE 0.9% 1,000 ML IV ONE (14:07)
[2021-03-03 15:17] VITALS: BMI 36.6
[2021-03-03] MEDS ORDERED: WARFARIN 0.5 MG TAB PO ONE (18:00)
--- NOTE | 2021-03-03 18:14 | CT ---
EXAM: CT Angiography Chest With Intravenous Contrast CLINICAL HISTORY: Shortness of breath/+ dimer TECHNIQUE: Axial computed tomographic angiography images of the chest with intravenous contrast. CTDI is 20.17 mGy and DLP is 532 mGy-cm. This CT exam was performed using one or more of the following dose reduction techniques: automated exposure control, adjustment of the mA and/or kV according to patient size, and/or use of iterative reconstruction technique. MIP reconstructed images were created and reviewed. Coronal and sagittal reformatted images were created and reviewed. COMPARISON: No relevant prior studies available. FINDINGS: Pulmonary arteries: No evidence of pulmonary embolism. Aorta: Atherosclerotic calcifications are noted within the aortic arch. No thoracic aortic aneurysm or dissection. Lungs: Bilateral patchy hazy groundglass opacities and septal thickening. Pleural space: Small bilateral pleural effusions. Heart: Cardiomegaly. Coronary artery calcifications. Radiodensities in the mitral and aortic valves. Bones/joints: Status post median sternotomy. No acute fracture. No dislocation. Findings concerning for ankylosing spondylitis. Soft tissues: Unremarkable. Lymph nodes: Unremarkable. No enlarged lymph nodes. IMPRESSION: 1. No evidence of pulmonary embolism. 2. Bilateral patchy hazy pulmonary opacities and septal thickening. This is concerning for pneumonia versus pulmonary edema. 3. Small bilateral pleural effusions. 4. Cardiomegaly. 5. Coronary artery calcifications. 6. Status post median sternotomy. 7. Radiodensities in the mitral and aortic valves. These may represent calcifications versus postsurgical change. 8. Findings concerning for ankylosing spondylitis.
[2021-03-03] MEDS ORDERED: SODIUM CHLORIDE 0.9% 500 ML 500 ML IV SCH (18:30)
[2021-03-03] MEDS: ALBUTEROL HFA INHALER INHALATION SCH ×2 (19:44→20:28)
[2021-03-03] MEDS ORDERED: FLUTICASONE 50MCG/SPRAY NASAL 16GM EA NOSTRIL PRN (19:45)
[2021-03-03] MEDS: CHOLECALCIFEROL 25 MCG (1000 IU) TABLET PO SCH (21:29)
[2021-03-03] MEDS: ASCORBIC ACID 500 MG TAB PO SCH (21:29)
[2021-03-03] MEDS: ZINC SULFATE 220 MG CAP PO SCH (21:33)
[2021-03-04 07:00] LABS: Basophils # (A) 0.1 k/uL (0-0.2); Basophils % (A) 1 %; Eosinophils # (A) 0.5 k/uL (0-0.7); Eosinophils % (A) 5 %; HGB 12.4 gm/dL (13.0-17.5); Lymphocytes # (A) 0.5 k/uL (1.0-4.8); Lymphocytes % (A) 5 %; MCH 30.9 pg (25.0-35.0); MCHC 32.7 g/dL (31.0-37.0); MCV 94.3 fL (80.0-100.0); Mean Platelet Volume 7.9; Monocytes # (A) 1.1 k/uL (0-1.0); Monocytes % (A) 11 %; Neutrophils % (A) 77 %; Platelet Count 144 k/uL (150-450); RBC 4.03 m/uL (4.30-5.90); RDW 14.4 % (11.5-15.5); WBC 10.4 k/uL (3.8-10.6)
[2021-03-04 07:14] LABS: INR 3.5 (<1.2); Prothrombin Time 33.5 sec (9.0-12.0)
[2021-03-04 07:27] LABS: ALT 17 U/L (4-49); AST 56 U/L (17-59); African American GFR (CKD) >90 (>60 ml/min/1.73 sqM); Albumin 3.2 g/dL (3.5-5.0); Albumin/Globulin Ratio 0.8; Alkaline Phosphatase 85 U/L (38-126); Anion Gap 6 mmol/L; Blood Urea Nitrogen 20 mg/dL (9-20); Calcium 8.7 mg/dL (8.4-10.2); Carbon Dioxide 22 mmol/L (22-30); Chloride 106 mmol/L (98-107); Globulin 3.9 g/dL; Glucose 95 mg/dL (74-99); Magnesium 2.1 mg/dL (1.6-2.3); Non-African American GFR(CKD) 79 (>60 ml/min/1.73 sqM); Potassium 4.6 mmol/L (3.5-5.1); Sodium 134 mmol/L (137-145); Total Bilirubin 0.5 mg/dL (0.2-1.3); Total Protein 7.1 g/dL (6.3-8.2)
[2021-03-04] MEDS ORDERED: bisacodyL 5 MG TABLET.DR PO PRN (07:52)
--- NOTE | 2021-03-04 07:55 | P.PN ---
Subjective Progress Note Date: 03/04/21 Principal diagnosis: Community-acquired pneumonia Syncopal episode 80-year-old male with past medical history of hypertension, prostate disorder, arrhythmia, aortic valve replacementcurrently taking Coumadin therapy for valve replacement. He presented to the emergency department after a syncopal episode. He states he felt lightheaded and passed out while doing chores outside. He states he felt lightheaded and passed out. Patient had extensive diagnostic workup in emergency departmentCT of the headno acute changes, chest x-ray shows infiltrates indicated of pneumonia. CBC shows leukocytosis with left shift. He had elevated INR 3.6pharmacy to dose Coumadin for aortic valve replacement. Patient denies fever, shortness of breath, chest pain, palpitations, abdominal pain, nausea, vomiting, or diarrhea. Patient endorses generalized weakness with associated chills intermittently. 03/03/2021 Evaluated patient this a.m., resting comfortably in bed. Patient denies fever, chills, shortness of breath, palpitations, abdominal pain, nausea, vomiting, or diarrhea this time. he has elevated Procalcitonin time, and chest x-ray and CBC are indicative of community-acquired pneumonia. Patient had syncopal episode prior to admissionawaiting recommendations from cardiology for treatment plan. he currently no acute signs of distress. 03/04/2021 Evaluated patient this a.m., resting comfortably in bed with 2 L of oxygen. Patient denies fever, chills shortness of breath, palpitations abdominal pain, nausea vomiting or diarrhea. Patient has mildly elevated pro-calcitonin time, elevated inflammatory markers, CBCwith leukocytosis and a left shift. Consulted pulmonary critical care for recommendations and treatment plan for community acquired pneumonia and elevated inflammatory markers. Objective - Vital Signs Vital signs: Vital Signs Temp 97.4 F L 03/04/21 01:20 Pulse 60 03/04/21 01:20 Resp 16 03/04/21 01:20 BP 136/66 03/04/21 01:20 Pulse Ox 90 L 03/04/21 01:20 Intake & Output 03/03/21 03/04/21 03/04/21 18:59 06:59 18:59 Intake Total 850 Balance 850 Weight 122.47 kg Intake: Intake, IV Titration 450 Amount Sodium Chloride 0.9% 1, 450 000 ml @ 75 mls/hr IV . [id number] JON Rx#:[id number] Oral 400 Other: # Voids 2 4 - Constitutional General appearance: Present: mild distress - EENT Eyes: Present: EOMI, PERRLA Ears: bilateral: normal - Neck Neck: Present: normal ROM Carotids: bilateral: upstroke normal Thyroid: negative: normal size - Respiratory Respiratory: bilateral: diminished (Anterior and posterior) - Cardiovascular Details: Paced rhythm Heart rate: 64 Rhythm: regular Heart sounds: normal: S1, S2 - Peripheral pulses radial pulse Peripheral Pulses: bilateral: Normal dorsalis pedis Peripheral Pulses: bilateral: Normal - Gastrointestinal General gastrointestinal: Present: normal bowel sounds - Integumentary Integumentary: Present: pale - Neurologic Neurologic: Present: CNII-XII intact - Musculoskeletal Musculoskeletal: Present: generalized weakness - Psychiatric Psychiatric: Present: A&O x's 3, appropriate affect, intact judgment & insight - Allied health notes Allied health notes reviewed: nursing - Labs CBC & Chem 7: 03/04/21 06:00 03/04/21 06:00 Labs: Abnormal Lab Results - Last 24 Hours (Table) 03/03/21 03/03/21 03/04/21 Range/Units 12:26 12:26 06:00 RBC 4.03 L (4.30-5.90) m/uL Hgb 12.4 L (13.0-17.5) gm/dL Hct 38.0 L (39.0-53.0) % Plt Count 144 L (150-450) k/uL Neutrophils # 8.0 H (1.3-7.7) k/uL Lymphocytes # 0.5 L (1.0-4.8) k/uL Monocytes # 1.1 H (0-1.0) k/uL PT (9.0-12.0) sec INR (<1.2) Fibrinogen 624 H (200-500) mg/dL D-Dimer 3.54 H (<0.60) mg/L FEU Sodium (137-145) mmol/L Lactate Dehydrogenase 966 H (313-618) U/L Creatine Kinase 1079 H* (55-170) U/L C-Reactive Protein 7.5 H (<1.0) mg/dL Albumin (3.5-5.0) g/dL 03/04/21 03/04/21 Range/Units 06:00 06:00 RBC (4.30-5.90) m/uL Hgb (13.0-17.5) gm/dL Hct (39.0-53.0) % Plt Count (150-450) k/uL Neutrophils # (1.3-7.7) k/uL Lymphocytes # (1.0-4.8) k/uL Monocytes # (0-1.0) k/uL PT 33.5 H (9.0-12.0) sec INR 3.5 H (<1.2) Fibrinogen (200-500) mg/dL D-Dimer (<0.60) mg/L FEU Sodium 134 L (137-145) mmol/L Lactate Dehydrogenase (313-618) U/L Creatine Kinase (55-170) U/L C-Reactive Protein (<1.0) mg/dL Albumin 3.2 L (3.5-5.0) g/dL Microbiology - Last 24 Hours (Table) 03/02/21 13:32 Blood Culture - Preliminary Blood No Growth after 24 hours 03/02/21 13:30 Blood Culture - Preliminary Blood No Growth after 24 hours - Imaging and Cardiology Chest x-ray: pending CT scan - chest: report reviewed Assessment and Plan Assessment: Syncopal episode Community-acquired pneumonia Leukocytosis Mildly elevated troponins Elevated pro-calcitonin time Elevated inflammatory markers Prostate disorder History of prostate cancer Osteoarthritis Hypertension Aortic valve replacement History of arrhythmia Pacemaker Mixed anxiety and depression History of Carotid surgery right-sided Former smoker Full code Plan: Syncopal episodeconsultation with cardiology associates for recommendations and treatment plan Community-acquired pneumoniacontinue IV antibiotics of Zithromax and Rocephinawaiting sputum culture Leukocytosiscontinue to trend Elevated inflammatory markerspossible Covid 19consultation with pulmonary critical care Hypertension continue home medications Elevated INRpharmacy to dose for mechanical aortic valve Continue home medications Continue medical management Further recommendations to come based on patient's clinical status Time with Patient: Greater than 30
[2021-03-04] MEDS: METOPROLOL TARTRATE 50 MG TAB PO SCH ×2 (07:56→21:54)
[2021-03-04] MEDS: CHOLECALCIFEROL 25 MCG (1000 IU) TABLET PO SCH (07:56)
[2021-03-04] MEDS: AMIODARONE 200 MG TAB PO SCH (07:56)
[2021-03-04] MEDS: HYDROcodone/APAP 5-325MG 1 EACH TAB PO PRN ×2 (07:56→16:47)
[2021-03-04] MEDS: ZINC SULFATE 220 MG CAP PO SCH (07:57)
[2021-03-04] MEDS: amLODIPine 5 MG TAB PO SCH ×2 (07:57→21:54)
[2021-03-04] MEDS: ASCORBIC ACID 500 MG TAB PO SCH ×2 (07:57→21:54)
[2021-03-04] MEDS: AZITHROMYCIN 500 MG in SODIUM CHLORIDE 0.9% 250 ML IVPB SCH (09:03)
[2021-03-04] MEDS: ALBUTEROL HFA INHALER INHALATION SCH ×3 (09:03→20:14)
--- NOTE | 2021-03-04 09:39 | XR ---
EXAMINATION TYPE: XR chest 1V portable DATE OF EXAM: 03/04/2021 CLINICAL HISTORY: pneumonia/possible covid-19. TECHNIQUE: Portable frontal view of the chest. COMPARISON: 03/03/2021 FINDINGS: Sternotomy wires. Low lung volumes. Cardiomegaly. Mild multilobar multifocal interstitial o pacities are similar given differences in lung volume. No pneumothorax or pleural effusion. IMPRESSION: Similar appearance of mild multifocal interstitial opacities of the bilateral lungs versus 03/03/2021.
--- NOTE | 2021-03-04 11:53 | P.PN ---
Subjective Progress Note Date: 03/04/21 HISTORY OF PRESENT ILLNESS: This is a 80-year-old male with a past medical history significant for paroxysmal atrial fibrillation, hypertension, and mechanical aortic valve replacement 1998. Patient follows in the office with Dr. Prasad. We have been asked to see the patient in consultation for syncope. Patient examined at the bedside. Patient reports he was walking outside to feed some feral cats. After he bent down to place the food on the ground, he stood back up and states he fell down and passed out. He reports falling on his back. He doesnt remember passing out. He had no indication that he was going to fall and pass out. He denied any dizziness or lightheadedness. He reports having a recent fall also but states he tripped over something. He does report feeling lightheaded and dizzy the past two weeks when he exerts himself. He reports having chills and weakness over the past month. He denies having a fever though. He denies any cough or congestion. EKG reveals sinus bradycardia with first-degree AV block. Left axis deviation. Left bundle branch block. Chest xray multilobular multifocal opacities of the bilateral lungs Laboratory data: WBC 13.6. Hemoglobin 12.6. Platelet count 194. INR 4.0. Sodium 138. Potassium 4.6. BUN 21. Creatinine 1.03. Magnesium 2.1. Lactic acid 1.9. Current home cardiac medications include Norvasc 5 mg twice a day, Coumadin 2.5 mg on and 5 mg Monday and Monday, metoprolol titrate 50 mg twice a day, and amiodarone 200 mg daily Most recent echocardiogram obtained in 2018 revealed ejection fraction of 50% Cardiac catheterization history: In 1998 prior to his aortic valve replacement which showed normal coronary arteries 03/04/2021 Patient examined this morning at the bedside. He denies chest pain or pressure. He states his lightheadedness has resolved. He complains of back pain and states it is from the hospital bed. Patient did not receive Coumadin yesterday secondary to elevated INR. Patient's INR today 3.5. Orthostatic blood pressures obtained yesterday were unremarkable. Echocardiogram completed revealed ejection fraction 50-55%, normally functioning mechanical prostatic valve, severe aortic regurgitation, mild mitral regurgitation, moderate to severe mitral stenosis, moderate tricuspid regurgitation, and mild pulmonary hypertension. Chest CTA performed revealing no evidence of pulmonary embolism. Bilateral patchy hazy pulmonary opacities concerning for pneumonia versus pulmonary edema. Small bilateral pleural effusions. Cardiomegaly. Repeat chest x-ray performed this morning reveals similar appearance of mild multifocal interstitial opacities of the bilateral lungs compared to imaging performed yesterday. Pulmonary has been consulted for further evaluation. PHYSICAL EXAM: VITAL SIGNS: Reviewed. GENERAL: Well-developed in no acute distress. HEENT: Head is normocephalic. Pupils are equal, round. Sclerae anicteric. Mucous membranes of the mouth are moist. Neck supple. No JVD or thyromegaly LUNGS: Respirations even and unlabored. Lungs diminished bilaterally. HEART: Regular rate and rhythm. S1 and S2 heard. EXTREMITIES: Normal range of motion. No clubbing or cyanosis. Peripheral pulses intact. No lower extremity edema ASSESSMENT: Bilateral pneumonia Syncope Coumadin coagulopathy, INR 4.0 History of mechanical aortic valve replacement, 1998 History of paroxysmal atrial fibrillation/flutter Hypertension History of right carotid endarterectomy PLAN: Continue current cardiac medications Continue Coumadin per pharmacy. Monitor INR. Patient noted to have severe aortic regurg of his valve, however this does not appear to be causing any acute issues. Patient may follow up outpatient with Dr. Prasad regarding this. Patient stable from a cardiac standpoint. We will sign off. Please reconsult if needed. Nurse practitioner note has been reviewed by physician. Signing provider agrees with the documented findings, assessment, and plan of care. Objective - Vital Signs Vital signs: Vital Signs Temp 97.7 F 03/04/21 07:57 Pulse 60 03/04/21 07:57 Resp 20 03/04/21 07:57 BP 164/66 03/04/21 07:57 Pulse Ox 90 L 03/04/21 07:57 Intake & Output 03/03/21 03/04/21 03/04/21 18:59 06:59 18:59 Intake Total 850 200 Balance 850 200 Weight 122.47 kg Intake: Intake, IV Titration 450 Amount Sodium Chloride 0.9% 1, 450 000 ml @ 75 mls/hr IV . [id number] JON Rx#:[id number] Oral 400 200 Other: # Voids 2 4 - Labs CBC & Chem 7: 03/04/21 06:00 03/04/21 06:00 Labs: Abnormal Lab Results - Last 24 Hours (Table) 03/03/21 03/03/21 03/04/21 Range/Units 12:26 12:26 06:00 RBC 4.03 L (4.30-5.90) m/uL Hgb 12.4 L (13.0-17.5) gm/dL Hct 38.0 L (39.0-53.0) % Plt Count 144 L (150-450) k/uL Neutrophils # 8.0 H (1.3-7.7) k/uL Lymphocytes # 0.5 L (1.0-4.8) k/uL Monocytes # 1.1 H (0-1.0) k/uL PT (9.0-12.0) sec INR (<1.2) Fibrinogen 624 H (200-500) mg/dL D-Dimer 3.54 H (<0.60) mg/L FEU Sodium (137-145) mmol/L Lactate Dehydrogenase 966 H (313-618) U/L Creatine Kinase 1079 H* (55-170) U/L C-Reactive Protein 7.5 H (<1.0) mg/dL Albumin (3.5-5.0) g/dL 03/04/21 03/04/21 Range/Units 06:00 06:00 RBC (4.30-5.90) m/uL Hgb (13.0-17.5) gm/dL Hct (39.0-53.0) % Plt Count (150-450) k/uL Neutrophils # (1.3-7.7) k/uL Lymphocytes # (1.0-4.8) k/uL Monocytes # (0-1.0) k/uL PT 33.5 H (9.0-12.0) sec INR 3.5 H (<1.2) Fibrinogen (200-500) mg/dL D-Dimer (<0.60) mg/L FEU Sodium 134 L (137-145) mmol/L Lactate Dehydrogenase (313-618) U/L Creatine Kinase (55-170) U/L C-Reactive Protein (<1.0) mg/dL Albumin 3.2 L (3.5-5.0) g/dL Microbiology - Last 24 Hours (Table) 03/02/21 13:32 Blood Culture - Preliminary Blood No Growth after 24 hours 03/02/21 13:30 Blood Culture - Preliminary Blood No Growth after 24 hours
[2021-03-04] MEDS: methylPREDNISolone SOD SUCCI 40 MG/ML 1 ML VIAL IV SCH (15:11)
--- NOTE | 2021-03-04 16:07 | P.CNPUL ---
History of Present Illness Consult date: 03/04/21 Reason for consult: dyspnea, cough, hypoxemia, abnormal CXR/CT Chief complaint: Shortness of breath/pneumonia History of present illness: This is a 8-year-old male who was seen eval examined on the fourth floor patient came into the hospital with the syncope lightheadedness, patient was admitted on March 02, he denies any chest pain denies any abdominal pain nausea vomiting headache, visual changes, patient has been on metaproterenol as well as as amiodarone, he takes Coumadin, patient has a significant history of aortic valve replacement, also history of prostate cancer, patient was slightly hypoxic with saturation are 93% on room air, initial admitted chest axis is still left mid and lower lobe pneumonia: Weight 19 testing was negative, patient was admitted with a cardiology consultation for further evaluation of note that the initial white cell count is 16,000, patient was admitted about 6 weeks ago at [facility] his coronary testing at that time was also found to be negative, patient quit smoking about 10-15 years ago but used to smoke up to 2 packs per day, he used to work as a welder production line combination, currently patient is on 3 L nasal cannula oxygen, 80s can continue show bilateral multifocal opacities not much change, echocardiogram on the March 03 revealed ejection fraction 50-655%, normally functio bravo mechanical prosthetic aortic valve, aortic agitation seen, moderate to severe mitral stenosis seen, right pulmonary hypertension seen with a RVSP of 40, computed tomography scan of the chest performed revealed absence of any pulmonary embolism bilateral patchy opacities and septal 6 thickening seen, small bilateral pleural effusions seen, chest x-ray performed today failed to reveal any significant changes from prior x-rays, white cell count improving down to 10,400 now, INR is therapeutic 3.5, coated also influenza A and B and RSV is negative so as covid 19 pneumonia mycoplasma IgG 1.9 elevated suggestive of prior mycoplasma pneumonia IgM however is normal, pro-calcitonin level also elevated Review of Systems All systems: negative Past Medical History Past Medical History: Cancer, Hypertension, Osteoarthritis (OA), Prostate Disorder Additional Past Medical History / Comment(s): ARRYTHYTHMIA,AORTIC VALVE REPLACEMENT,PROSTATE CANCER, History of Any Multi-Drug Resistant Organisms: None Reported Past Surgical History: Tonsillectomy Additional Past Surgical History / Comment(s): VASCECTOMY,AORTIC VALVE REPLACEMENT, CAROTID ARTERY RIGHT SIDE Past Anesthesia/Blood Transfusion Reactions: No Reported Reaction Past Psychological History: Depression Smoking Status: Former smoker Past Alcohol Use History: None Reported Additional Past Alcohol Use History / Comment(s): STARTED SMOKING AT AGE 13 QUIT 1998 [id number] Past Drug Use History: None Reported - Past Family History Mother Family Medical History: Cancer Medications and Allergies Home Medications Medication Instructions Recorded Confirmed Type Metoprolol Tartrate [Lopressor] 50 mg PO BID 11/18/16 03/02/21 History Amiodarone [Cordarone] 200 mg PO DAILY 05/14/19 03/02/21 History HYDROcodone/APAP 5-325MG [[place] 1 tab PO BID PRN 05/14/19 03/02/21 History 5-325] Warfarin [Coumadin] 2.5 mg PO TH 05/14/19 03/02/21 History Warfarin [Coumadin] 5 mg PO [id number] 05/14/19 03/02/21 History amLODIPine [Norvasc] 5 mg PO BID 05/14/19 03/02/21 History Allergies Allergy/AdvReac Type Severity Reaction Status Date / Time dopamine Allergy "WAS TOLD Verified 03/02/21 11:45 NOT TO HAVE RX AGAIN,VERY ILL STATES ALMOST " Physical Exam Vitals: Vital Signs Temp Pulse Resp BP BP BP Pulse Ox 03/04/21 14:00 97.7 F 55 L 16 125/53 92 L 03/04/21 07:57 97.7 F 60 20 164/66 90 L 03/04/21 01:20 97.4 F L 60 16 136/66 90 L 03/03/21 21:43 97.5 F L 63 20 151/75 92 L Intake and Output 03/04/21 03/04/21 03/04/21 06:59 14:59 22:59 Intake Total 700 Balance 700 Intake: IV 300 Azithromycin 500 mg In 250 Sodium Chloride 0.9% 250 ml @ 250 mls/hr IVPB DAILY JON Rx#:[id number] cefTRIAXone 2 gm In 50 Sodium Chloride 0.9% 50 ml @ 100 mls/hr IVPB Q24HR JON Rx#:[id number] Oral 400 Other: # Voids 4 - Constitutional General appearance: average body habitus, cooperative, disheveled, morbidly obese - EENT Eyes: EOMI, PERRLA Ears: bilateral: normal - Neck Carotids: bilateral: upstroke normal - Respiratory Respiratory: bilateral: diminished, rales (Fine bilateral) - Cardiovascular Rhythm: regular Heart sounds: normal: S1, S2 - Gastrointestinal General gastrointestinal: normal bowel sounds - Integumentary Integumentary: normal turgor - Neurologic Neurologic: CNII-XII intact - Musculoskeletal Musculoskeletal: gait normal, generalized weakness, strength equal bilaterally - Psychiatric Psychiatric: A&O x's 3, appropriate affect, intact judgment & insight Results - Laboratory Findings CBC and BMP: 03/04/21 06:00 03/04/21 06:00 PT/INR, D-dimer PT 33.5 sec (9.0-12.0) H 03/04/21 06:00 INR 3.5 (<1.2) H 03/04/21 06:00 D-Dimer 3.54 mg/L FEU (<0.60) H 03/03/21 12:26 Abnormal lab findings: Abnormal Labs 03/02/21 03/02/21 03/02/21 11:39 11:39 13:21 WBC 16.5 H RBC 4.13 L Hgb 12.7 L Hct 38.2 L Plt Count Neutrophils # 14.8 H Lymphocytes # 0.5 L Monocytes # PT 34.4 H INR 3.6 H APTT 38.5 H Fibrinogen D-Dimer Sodium BUN AST Lactate Dehydrogenase Creatine Kinase C-Reactive Protein Albumin Procalcitonin Urine Protein Trace H Urine Blood Small H Urine Mucus Rare H Mycoplasma pneumon IgG 03/02/21 03/02/21 03/03/21 17:36 17:36 05:33 WBC 13.6 H RBC 4.29 L Hgb 12.6 L Hct Plt Count Neutrophils # 11.1 H Lymphocytes # 0.9 L Monocytes # PT INR APTT Fibrinogen D-Dimer Sodium BUN AST Lactate Dehydrogenase Creatine Kinase C-Reactive Protein Albumin Procalcitonin 0.13 H Urine Protein Urine Blood Urine Mucus Mycoplasma pneumon IgG 1.90 H 03/03/21 03/03/21 03/03/21 05:33 05:33 12:26 WBC RBC Hgb Hct Plt Count Neutrophils # Lymphocytes # Monocytes # PT 38.8 H INR 4.0 H APTT Fibrinogen 624 H D-Dimer 3.54 H Sodium BUN 21 H AST 63 H Lactate Dehydrogenase Creatine Kinase C-Reactive Protein Albumin 3.2 L Procalcitonin Urine Protein Urine Blood Urine Mucus Mycoplasma pneumon IgG 03/03/21 03/04/21 03/04/21 12:26 06:00 06:00 WBC RBC 4.03 L Hgb 12.4 L Hct 38.0 L Plt Count 144 L Neutrophils # 8.0 H Lymphocytes # 0.5 L Monocytes # 1.1 H PT INR APTT Fibrinogen D-Dimer Sodium 134 L BUN AST Lactate Dehydrogenase 966 H Creatine Kinase 1079 H* C-Reactive Protein 7.5 H Albumin 3.2 L Procalcitonin Urine Protein Urine Blood Urine Mucus Mycoplasma pneumon IgG 03/04/21 06:00 WBC RBC Hgb Hct Plt Count Neutrophils # Lymphocytes # Monocytes # PT 33.5 H INR 3.5 H APTT Fibrinogen D-Dimer Sodium BUN AST Lactate Dehydrogenase Creatine Kinase C-Reactive Protein Albumin Procalcitonin Urine Protein Urine Blood Urine Mucus Mycoplasma pneumon IgG - Diagnostic Findings Chest x-ray: report reviewed, image reviewed CT scan - chest: report reviewed, image reviewed Assessment and Plan Assessment: Resolving pneumonia likely, community-acquired pneumonia Acute hypoxic respiratory failure multifactorial related to above as well as component of interstitial lung disease Interstitial lung disease etiology not clear however could be attributed to amiodarone induced lung injury, prior exposure Occupational metal dust and COPD Severe mitral stenosis Prosthetic aortic valve with some regurgitation functioning well Baseline COPD Suspect ongoing sleep disorder breathing and sleep apnea Plan: Recommend to continue antibiotics IV steroids Bronchodilators Optimize and maximize medical therapy for heart failure Continue Coumadin INR 3.5-4 Elevated inflammatory markers likely related to general medical condition, mechanical aortic valve will observe closely Doubt COVID-19 pneumonia
[2021-03-04 16:55] LABS: Ferritin 485.6 ng/mL (22.0-322.0)
[2021-03-04] MEDS ORDERED: WARFARIN 2.5 MG TAB PO ONE (18:00)
[2021-03-05] MEDS: methylPREDNISolone SOD SUCCI 40 MG/ML 1 ML VIAL IV SCH ×3 (00:56→15:46)
[2021-03-05] MEDS: HYDROcodone/APAP 5-325MG 1 EACH TAB PO PRN (00:56)
[2021-03-05] MEDS: ALBUTEROL HFA INHALER INHALATION SCH ×2 (07:53→12:27)
--- NOTE | 2021-03-05 08:55 | P.PN ---
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 to amiodarone induced lung injury, prior exposure Occupational metal dust and COPD Severe mitral stenosis Prosthetic aortic valve with some regurgitation functioning well Baseline COPD Suspect ongoing sleep disorder breathing and sleep apnea 03/05/2021, patient seen eval examined during the rounds labs reviewed medications reviewed care plan discussed with the patient and the daughter at length as well, respiratory status slightly better now patient is still on oxygen but however gradually being titrated down, less congested in the chest, remains on broad-spectrum antibiotics with Rocephin and Zithromax tolerating well, still undergoing evaluation from cardiovascular services about valvular heart disease This is a 8-year-old male who was seen eval examined on the fourth floor patient came into the hospital with the syncope lightheadedness, patient was admitted on March 02, he denies any chest pain denies any abdominal pain nausea vomiting headache, visual changes, patient has been on metaproterenol as well as as amiodarone, he takes Coumadin, patient has a significant history of aortic valve replacement, also history of prostate cancer, patient was slightly hypoxic with saturation are 93% on room air, initial admitted chest axis is still left mid and lower lobe pneumonia: Weight 19 testing was negative, patient was admitted with a cardiology consultation for further evaluation of note that the initial white cell count is 16,000, patient was admitted about 6 weeks ago at [facility] his coronary testing at that time was also found to be negative, patient quit smoking about 10-15 years ago but used to smoke up to 2 packs per day, he used to work as a arc and gas welder, currently patient is on 3 L nasal cannula oxygen, 80s can continue show bilateral multifocal opacities not much change, echocardiogram on the March 03 revealed ejection fraction 50-655%, normally functioning mechanical prosthetic aortic valve, aortic agitation seen, moderate to severe mitral stenosis seen, right pulmonary hypertension seen with a RVSP of 40, computed tomography scan of the chest performed revealed absence of any pulmonary embolism bilateral patchy opacities and septal 6 thickening seen, sm all bilateral pleural effusions seen, chest x-ray performed today failed to reveal any significant changes from prior x-rays, white cell count improving down to 10,400 now, INR is therapeutic 3.5, coated also influenza A and B and RSV is negative so as covid 19 pneumonia mycoplasma IgG 1.9 elevated suggestive of prior mycoplasma pneumonia IgM however is normal, pro-calcitonin level also elevated Objective - Vital Signs Vital signs: Vital Signs Temp 97.6 F 03/05/21 07:59 Pulse 71 03/05/21 07:59 Resp 20 03/05/21 07:59 BP 163/70 03/05/21 07:59 Pulse Ox 94 L 03/05/21 07:59 Intake & Output 03/04/21 03/05/21 03/05/21 18:59 06:59 18:59 Intake Total 700 Balance 700 Intake: IV 300 Azithromycin 500 mg In 250 Sodium Chloride 0.9% 250 ml @ 250 mls/hr IVPB DAILY [facility] Rx#:[id number] cefTRIAXone 2 gm In 50 Sodium Chloride 0.9% 50 ml @ 100 mls/hr IVPB Q24HR [facility] Rx#:[id number] Oral 400 Other: Voiding Method Toilet # Voids 2 - Exam - Constitutional General appearance: average body habitus, cooperative, disheveled, morbidly obese - EENT Eyes: EOMI, PERRLA Ears: bilateral: normal - Neck Carotids: bilateral: upstroke normal - Respiratory Respiratory: bilateral: diminished, rales (Fine bilateral) - Cardiovascular Rhythm: regular Heart sounds: normal: S1, S2 - Gastrointestinal General gastrointestinal: normal bowel sounds - Integumentary Integumentary: normal turgor - Neurologic Neurologic: CNII-XII intact - Musculoskeletal Musculoskeletal: gait normal, generalized weakness, strength equal bilaterally - Psychiatric Psychiatric: A&O x's 3, appropriate affect, intact judgment & insight - Labs CBC & Chem 7: 03/04/21 06:00 03/04/21 06:00 Labs: Abnormal Lab Results - Last 24 Hours (Table) 03/03/21 Range/Units 12:26 Ferritin 485.6 H (22.0-322.0) ng/mL Microbiology - Last 24 Hours (Table) 03/02/21 13:32 Blood Culture - Preliminary Blood No Growth after 48 hours 03/02/21 13:30 Blood Culture - Preliminary Blood No Growth after 48 hours Assessment and Plan Assessment: Resolving pneumonia likely, community-acquired pneumonia Acute hypoxic respiratory failure multifactorial related to above as well as component of interstitial lung disease Interstitial lung disease etiology not clear however could be attributed to amiodarone induced lung injury, prior exposure Occupational metal dust and COPD Severe mitral stenosis Prosthetic aortic valve with some regurgitation functioning well Baseline COPD Suspect ongoing sleep disorder breathing and sleep apnea Plan: Recommend to continue antibiotics IV steroids Bronchodilators Optimize and maximize medical therapy for heart failure Continue Coumadin INR 3.5-4 Elevated inflammatory markers likely related to general medical condition, mechanical aortic valve will observe closely Doubt COVID-19 pneumonia Time with Patient: Greater than 30
[2021-03-05] MEDS: ZINC SULFATE 220 MG CAP PO SCH (09:09)
[2021-03-05] MEDS: AMIODARONE 200 MG TAB PO SCH (09:09)
[2021-03-05] MEDS: CHOLECALCIFEROL 25 MCG (1000 IU) TABLET PO SCH (09:09)
[2021-03-05] MEDS: METOPROLOL TARTRATE 50 MG TAB PO SCH (09:09)
[2021-03-05] MEDS: amLODIPine 5 MG TAB PO SCH (09:09)
[2021-03-05] MEDS: ASCORBIC ACID 500 MG TAB PO SCH (09:09)
[2021-03-05 09:40] LABS: Basophils % (A) 0 %; Eosinophils % (A) 0 %; HCT 33.4 % (39.0-53.0); Lymphocytes # (A) 0.3 k/uL (1.0-4.8); Lymphocytes % (A) 3 %; MCH 31.1 pg (25.0-35.0); MCV 94.4 fL (80.0-100.0); Mean Platelet Volume 8.4; Monocytes # (A) 0.2 k/uL (0-1.0); Monocytes % (A) 3 %; Neutrophils # (A) 7.9 k/uL (1.3-7.7); Neutrophils % (A) 94 %; Platelet Count 170 k/uL (150-450); RBC 3.53 m/uL (4.30-5.90); RDW 14.5 % (11.5-15.5); WBC 8.5 k/uL (3.8-10.6)
[2021-03-05 09:44] LABS: ALT 18 U/L (4-49); AST 49 U/L (17-59); African American GFR (CKD) >90 (>60 ml/min/1.73 sqM); Albumin 3.2 g/dL (3.5-5.0); Albumin/Globulin Ratio 0.8; Alkaline Phosphatase 87 U/L (38-126); Anion Gap 7 mmol/L; Blood Urea Nitrogen 20 mg/dL (9-20); Calcium 8.5 mg/dL (8.4-10.2); Carbon Dioxide 26 mmol/L (22-30); Chloride 104 mmol/L (98-107); Globulin 3.9 g/dL; Glucose 117 mg/dL (74-99); Magnesium 2.2 mg/dL (1.6-2.3); Non-African American GFR(CKD) 80 (>60 ml/min/1.73 sqM); Potassium 4.9 mmol/L (3.5-5.1); Sodium 137 mmol/L (137-145); Total Bilirubin 0.5 mg/dL (0.2-1.3); Total Protein 7.1 g/dL (6.3-8.2)
[2021-03-05 09:50] LABS: INR 3.1 (<1.2); Prothrombin Time 29.5 sec (9.0-12.0)
[2021-03-05] MEDS: AZITHROMYCIN 500 MG in SODIUM CHLORIDE 0.9% 250 ML IVPB SCH (10:05)
[2021-03-05 14:54] VITALS: BP 138/57; PULSE 62; RESP 18; TEMP 97.7
[2021-03-05] MEDS ORDERED: FUROSEMIDE 10 MG/ML 4 ML VIAL IV STA (15:32)
--- NOTE | 2021-03-05 15:43 | P.DS ---
Providers Date of admission: 03/02/21 13:27 Attending physician: Coleman Nugent Consults: 03/03/21 18:18 Consult Physician Urgent Consulting Provider: Arturo Walker Consult Reason/Comments: pneumonia Do you want consulting provider notified?: Yes Primary care physician: Coleman Nugent Hospital Course: Patient is admitted for shortness of breath which resolved at this time patient was treated for pneumonia. Patient had a groundglass a paced is on the chest x- ray and a lengthy discussion with the floor worker patient is also on amiodarone the possibilities for his hypoxemia is as follows #1 pulmonary edema for from his mitral valvular disease. #2 interstitial lung disease possibility of amiodarone-induced for which patient will follow-up with the pulmonology where he will undergo pulmonary function testing further decision regarding continuation of amiodarone as per the floor worker and loadmaster as an outpatient. Patient was evaluated by cardiology here. Patient had a I aortic valve replacement patient has history of A. fib atrial fibrillation on Coumadin subtherapeutic on INR on admission. Patient will be discharged on 4 mg of Coumadin patient INR is 3.1. Patient will get a repeat INR check in about 2-3 days. I do not believe patient has typical or atypical pneumonia. Pulmonology is recommending antibiotics for 3 more days patient will be discharged on those antibiotics. Patient had a syncope. Etiology of the syncope is still not clear. Patient appears to be fairly euvolemic patient will be given a dose of Lasix before discharge patient is not being discharged on any diuretics patient will closely follow up with the cardiology per neurology and PCP as an outpatient. PHYSICAL EXAMINATION: GENERAL: The patient is alert and oriented x3, not in any acute distress. Well developed, well nourished. HEENT: Pupils are round and equally reacting to light. EOMI. No scleral icterus. No conjunctival pallor. Normocephalic, atraumatic. No pharyngeal erythema. No thyromegaly. CARDIOVASCULAR: S1 and S2 present. No murmurs, rubs, or gallops. Systolic murmur in the mitral area PULMONARY: Chest is clear to auscultation, no wheezing or crackles. ABDOMEN: Soft, nontender, nondistended, normoactive bowel sounds. No palpable organomegaly. MUSCULOSKELETAL: No joint swelling or deformity. EXTREMITIES: No cyanosis, clubbing, or pedal edema. NEUROLOGICAL: Gross neurological examination did not reveal any focal deficits. SKIN: No rashes. -Syncope -Possible pulmonary edema for mitral regurgitation patient will be given a dose of Lasix -Atrial fibrillation -Possible interstitial lung disease -Hypertension -Aortic stenosis status post replacement -Depression For rest of the medical problems and aspiration course please refer to documentation from Dr. Nugent from yesterday Plan - Discharge Summary Discharge Rx Participant: Yes New Discharge Prescriptions: New Warfarin [Coumadin] 4 mg PO DAILY #30 tab Ascorbic Acid [Vitamin C] 500 mg PO BID #20 tab predniSONE 10 mg PO DAILY #30 tab Cefuroxime Axetil [Ceftin] 500 mg PO BID 4 Days #8 tab Cholecalciferol [Vitamin D3 (25 Mcg = 1000 Iu)] 50 mcg PO DAILY #20 tablet Continue Metoprolol Tartrate [Lopressor] 50 mg PO BID Amiodarone [Cordarone] 200 mg PO DAILY amLODIPine [Norvasc] 5 mg PO BID HYDROcodone/APAP 5-325MG [[place] 5-325] 1 tab PO BID PRN PRN Reason: Pain Discontinued Warfarin [Coumadin] 2.5 mg PO TH Warfarin [Coumadin] 5 mg PO SUMOTUWEFRSA Discharge Medication List Metoprolol Tartrate [Lopressor] 50 mg PO BID 11/18/16 [History] Amiodarone [Cordarone] 200 mg PO DAILY 05/14/19 [History] HYDROcodone/APAP 5-325MG [[place] 5-325] 1 tab PO BID PRN 05/14/19 [History] amLODIPine [Norvasc] 5 mg PO BID 05/14/19 [History] Ascorbic Acid [Vitamin C] 500 mg PO BID #20 tab 03/05/21 [Rx] Cefuroxime Axetil [Ceftin] 500 mg PO BID 4 Days #8 tab 03/05/21 [Rx] Cholecalciferol [Vitamin D3 (25 Mcg = 1000 Iu)] 50 mcg PO DAILY #20 tablet 03/05/21 [Rx] Warfarin [Coumadin] 4 mg PO DAILY #30 tab 03/05/21 [Rx] predniSONE 10 mg PO DAILY #30 tab 03/05/21 [Rx] Follow up Appointment(s)/Referral(s): Coleman Nugent MD [Primary Care Provider] - 3 Days Clay Prasad MD [STAFF PHYSICIAN] - [facility] We[facility] [[facility] - Ambulatory/Diagnostic Orders: Basic Metabolic Panel [LAB.AMB] Time Frame: 3 Days, Location: None Selected Prothrombin Time INR [LAB.AMB] Time Frame: 3 Days, Location: None Selected Patient Instructions/Handouts: Pneumonia (DC) Discharge Disposition: HOME WITH HOME HEALTH SERVICES
[2021-03-05] MEDS ORDERED: WARFARIN 2 MG TAB PO ONE (18:00)
== END 2021-03-05 16:46 | disposition home health service (06) | DRG 193 ==
LOC: EC 10:52 → 4SSUR 13:27
PROVIDERS: ADMIT Family Medicine; ATTEND Family Medicine
DX: J18.9 Pneumonia, unspecified organism (principal); J96.01 Acute respiratory failure with hypoxia; T82.897A Other specified complication of cardiac prosthetic devices, implants and grafts, initial encounter; J44.0 Chronic obstructive pulmonary disease with (acute) lower respiratory infection; I27.20 Pulmonary hypertension, unspecified; I48.0 Paroxysmal atrial fibrillation; F41.8 Other specified anxiety disorders; R55 Syncope and collapse; I05.0 Rheumatic mitral stenosis; R79.1 Abnormal coagulation profile; T45.515A Adverse effect of anticoagulants, initial encounter; N42.9 Disorder of prostate, unspecified; M19.90 Unspecified osteoarthritis, unspecified site; I10 Essential (primary) hypertension; Z20.822 Contact with and (suspected) exposure to COVID-19; Z79.01 Long term (current) use of anticoagulants; Z79.899 Other long term (current) drug therapy; Z85.46 Personal history of malignant neoplasm of prostate; Z87.891 Personal history of nicotine dependence; Z95.2 Presence of prosthetic heart valve; Z90.89 Acquired absence of other organs; Z98.52 Vasectomy status; Z86.79 Personal history of other diseases of the circulatory system; Z98.890 Other specified postprocedural states; W19.XXXA Unspecified fall, initial encounter; W01.0XXA Fall on same level from slipping, tripping and stumbling without subsequent striking against object, initial encounter; Z88.8 Allergy status to other drugs, medicaments and biological substances; Z80.9 Family history of malignant neoplasm, unspecified; Y83.1 Surgical operation with implant of artificial internal device as the cause of abnormal reaction of the patient, or of later complication, without mention of misadventure at the time of the procedure
CPT/HCPCS: 36415; 70450; 71045; 71046; 71275; 80053; 81001; 82550; 82728; 83605; 83615; 83735; 83880; 84145; 84484; 85025; 85379; 85384; 85610; 85730; 86140; 86738; 87040; 87635; 87636; 93005; 93306; 94640; 99285

== ENCOUNTER 2021-03-13 11:37 | Inpatient (IN) | payer MEDICARE ==
--- NOTE | 2021-03-13 11:49 | ED ---
General Adult HPI - General Stated complaint: syncope Time Seen by Provider: 03/13/21 11:39 Source: patient, EMS, RN notes reviewed, old records reviewed - History of Present Illness Initial comments: 80-year-old male presenting with syncopal episode and collapse. Patient states that he's had 3 episodes today where he was lightheaded and fell. He states he was unconscious momentarily. He denies head trauma but he states he has been falling quite a bit lately. He has a history of a mechanical heart valve and is on Coumadin. He denies associated chest pain or dizziness. He states he was recently admitted for pneumonia and states that his cough has significantly improved. He denies fevers. Denied chest pain or palpitation. During transport EMS and noted that the patient became bradycardic in the 30s. - Related Data Home Medications Medication Instructions Recorded Confirmed Metoprolol Tartrate [Lopressor] 50 mg PO BID 11/18/16 03/13/21 Amiodarone [Cordarone] 200 mg PO DAILY 05/14/19 03/13/21 HYDROcodone/APAP 5-325MG [[place] 1 tab PO BID PRN 05/14/19 03/13/21 5-325] amLODIPine [Norvasc] 5 mg PO BID 05/14/19 03/13/21 Warfarin [Coumadin] 2.5 mg PO DIRECTED 03/13/21 03/13/21 Warfarin [Coumadin] 5 mg PO DIRECTED 03/13/21 03/13/21 predniSONE See Taper PO DAILY 03/13/21 03/13/21 Previous Rx's Medication Instructions Recorded Ascorbic Acid [Vitamin C] 500 mg PO BID #20 tab 03/05/21 Cefuroxime Axetil [Ceftin] 500 mg PO BID 4 Days #8 tab 03/05/21 Cholecalciferol [Vitamin D3 (25 50 mcg PO DAILY #20 tablet 03/05/21 Mcg = 1000 Iu)] Allergies Allergy/AdvReac Type Severity Reaction Status Date / Time dopamine Allergy "WAS TOLD Verified 03/13/21 12:36 NOT TO HAVE RX AGAIN,VERY ILL STATES ALMOST " Review of Systems ROS Statement: Those systems with pertinent positive or pertinent negative responses have been documented in the HPI. ROS Other: All systems not noted in ROS Statement are negative. Past Medical History Past Medical History: Cancer, Hypertension, Osteoarthritis (OA), Prostate Disorder Additional Past Medical History / Comment(s): ARRYTHYTHMIA,AORTIC VALVE REPLACEMENT,PROSTATE CANCER, History of Any Multi-Drug Resistant Organisms: None Reported Past Surgical History: Tonsillectomy Additional Past Surgical History / Comment(s): VASCECTOMY,AORTIC VALVE REPLACEMENT, CAROTID ARTERY RIGHT SIDE Past Anesthesia/Blood Transfusion Reactions: No Reported Reaction Past Psychological History: Depression Smoking Status: Former smoker Past Alcohol Use History: None Reported Additional Past Alcohol Use History / Comment(s): STARTED SMOKING AT AGE 13 QUIT 1998 [id number] Past Drug Use History: None Reported - Past Family History Mother Family Medical History: Cancer General Exam General appearance: alert, in no apparent distress Head exam: Present: atraumatic, normocephalic Eye exam: Present: PERRL, other (Right-sided conjunctival hemorrhage) ENT exam: Present: normal exam Neck exam: Present: normal inspection. Absent: tenderness, meningismus Respiratory exam: Present: normal lung sounds bilaterally, other (Ecchymosis, across the chest). Absent: respiratory distress, wheezes, chest wall tenderness Cardiovascular Exam: Present: regular rate, normal rhythm, systolic murmur GI/Abdominal exam: Present: soft. Absent: distended, tenderness, guarding Extremities exam: Present: full ROM, other (Chronic venous stasis). Absent: tenderness Neurological exam: Present: alert, oriented X3, CN II-XII intact. Absent: motor sensory deficit Psychiatric exam: Present: normal affect, normal mood Skin exam: Present: warm, dry, intact. Absent: cyanosis, diaphoretic Course Vital Signs 03/13/21 03/13/21 11:46 13:51 Temperature 98.3 F Pulse Rate 68 67 Respiratory 18 18 Rate Blood Pressure 149/67 133/49 O2 Sat by Pulse 96 93 L Oximetry EKG Findings - EKG Comments: EKG Findings:: EKG: Sinus rhythm with first-degree AV block, left bundle branch block, rate of 70, HI interval 252, QRS duration 164, QTC 520, similar EKG compared to prior. Medical Decision Making - Medical Decision Making 80-year-old male who presents with multiple syncopal episodes, falls. He has external signs of trauma to the lower jaw, chest, some conjunctival hematoma. These are in various stages of healing from multiple falls. He was noted to be bradycardic by EMS but was not seen in a bradycardic rhythm while in the emergency department. He is in sinus C6 with no tenderness. Is likely an old fracture. Patient will be admitted to a monitored bed. Case discussed with Dr. Mack who will admit. rhythm with a left bundle branch block which is stable for this patient. Chest x-ray showing - Lab Data Result diagrams: 03/13/21 11:46 03/13/21 11:46 Lab Results 03/13/21 03/13/21 03/13/21 Range/Units 11:46 11:46 11:46 WBC 15.2 H (3.8-10.6) k/uL RBC 4.02 L (4.30-5.90) m/uL Hgb 12.5 L (13.0-17.5) gm/dL Hct 37.9 L (39.0-53.0) % MCV 94.2 (80.0-100.0) fL MCH 31.1 (25.0-35.0) pg MCHC 33.0 (31.0-37.0) g/dL RDW 14.6 (11.5-15.5) % Plt Count 217 (150-450) k/uL MPV 7.8 Neutrophils % 94 % Lymphocytes % 2 % Monocytes % 3 % Eosinophils % 0 % Basophils % 0 % Neutrophils # 14.3 H (1.3-7.7) k/uL Lymphocytes # 0.4 L (1.0-4.8) k/uL Monocytes # 0.4 (0-1.0) k/uL Eosinophils # 0.1 (0-0.7) k/uL Basophils # 0.0 (0-0.2) k/uL PT 14.7 H (9.0-12.0) sec INR 1.5 H (<1.2) APTT 27.7 (22.0-30.0) sec Sodium (137-145) mmol/L Potassium (3.5-5.1) mmol/L Chloride (98-107) mmol/L Carbon Dioxide (22-30) mmol/L Anion Gap mmol/L BUN (9-20) mg/dL Creatinine (0.66-1.25) mg/dL Est GFR (CKD-EPI)AfAm (>60 ml/min/1.73 sqM) Est GFR (CKD-EPI)NonAf (>60 ml/min/1.73 sqM) Glucose (74-99) mg/dL Calcium (8.4-10.2) mg/dL Magnesium (1.6-2.3) mg/dL Total Bilirubin (0.2-1.3) mg/dL AST (17-59) U/L ALT (4-49) U/L Alkaline Phosphatase (38-126) U/L Troponin I (0.000-0.034) ng/mL Total Protein (6.3-8.2) g/dL Albumin (3.5-5.0) g/dL Urine Color Light Yellow Urine Appearance Clear (Clear) Urine pH 6.5 (5.0-8.0) Ur Specific [place] 1.013 (1.001-1.035) Urine Protein Trace H (Negative) Urine Glucose (UA) Negative (Negative) Urine Ketones Negative (Negative) Urine Blood Negative (Negative) Urine Nitrite Negative (Negative) Urine Bilirubin Negative (Negative) Urine Urobilinogen <2.0 (<2.0) mg/dL Ur Leukocyte Esterase Negative (Negative) 03/13/21 03/13/21 Range/Units 11:46 11:46 WBC (3.8-10.6) k/uL RBC (4.30-5.90) m/uL Hgb (13.0-17.5) gm/dL Hct (39.0-53.0) % MCV (80.0-100.0) fL MCH (25.0-35.0) pg MCHC (31.0-37.0) g/dL RDW (11.5-15.5) % Plt Count (150-450) k/uL MPV Neutrophils % % Lymphocytes % % Monocytes % % Eosinophils % % Basophils % % Neutrophils # (1.3-7.7) k/uL Lymphocytes # (1.0-4.8) k/uL Monocytes # (0-1.0) k/uL Eosinophils # (0-0.7) k/uL Basophils # (0-0.2) k/uL PT (9.0-12.0) sec INR (<1.2) APTT (22.0-30.0) sec Sodium 137 (137-145) mmol/L Potassium 5.3 H (3.5-5.1) mmol/L Chloride 104 (98-107) mmol/L Carbon Dioxide 24 (22-30) mmol/L Anion Gap 9 mmol/L BUN 32 H (9-20) mg/dL Creatinine 1.06 (0.66-1.25) mg/dL Est GFR (CKD-EPI)AfAm 77 (>60 ml/min/1.73 sqM) Est GFR (CKD-EPI)NonAf 66 (>60 ml/min/1.73 sqM) Glucose 110 H (74-99) mg/dL Calcium 8.8 (8.4-10.2) mg/dL Magnesium 2.2 (1.6-2.3) mg/dL Total Bilirubin 0.6 (0.2-1.3) mg/dL AST 35 (17-59) U/L ALT 22 (4-49) U/L Alkaline Phosphatase 121 (38-126) U/L Troponin I <0.012 (0.000-0.034) ng/mL Total Protein 7.1 (6.3-8.2) g/dL Albumin 3.6 (3.5-5.0) g/dL Urine Color Urine Appearance (Clear) Urine pH (5.0-8.0) Ur Specific [place] (1.001-1.035) Urine Protein (Negative) Urine Glucose (UA) (Negative) Urine Ketones (Negative) Urine Blood (Negative) Urine Nitrite (Negative) Urine Bilirubin (Negative) Urine Urobilinogen (<2.0) mg/dL Ur Leukocyte Esterase (Negative) Disposition Clinical Impression: Syncope, Pneumonia Disposition: ADMITTED IP TO THIS [facility] Condition: Stable Is patient prescribed a controlled substance at d/c from ED?: No Referrals: Coleman Nugent MD [Primary Care Provider] - 1-2 days Time of Disposition: 14:03 Decision to Admit Reason: Admit from EC Decision Date: 03/13/21 Decision Time: 14:03
[2021-03-13 12:17] LABS: Albumin 3.6 g/dL (3.5-5.0); Calcium 8.8 mg/dL (8.4-10.2); Magnesium 2.2 mg/dL (1.6-2.3); Potassium 5.3 mmol/L (3.5-5.1); Total Bilirubin 0.6 mg/dL (0.2-1.3); Total Protein 7.1 g/dL (6.3-8.2)
[2021-03-13 12:20] LABS: Basophils % (A) 0 %; Eosinophils # (A) 0.1 k/uL (0-0.7); Eosinophils % (A) 0 %; HCT 37.9 % (39.0-53.0); HGB 12.5 gm/dL (13.0-17.5); Lymphocytes # (A) 0.4 k/uL (1.0-4.8); Lymphocytes % (A) 2 %; MCH 31.1 pg (25.0-35.0); MCV 94.2 fL (80.0-100.0); Mean Platelet Volume 7.8; Monocytes # (A) 0.4 k/uL (0-1.0); Monocytes % (A) 3 %; Neutrophils # (A) 14.3 k/uL (1.3-7.7); Neutrophils % (A) 94 %; Platelet Count 217 k/uL (150-450); RBC 4.02 m/uL (4.30-5.90); RDW 14.6 % (11.5-15.5); WBC 15.2 k/uL (3.8-10.6)
[2021-03-13 12:27] LABS: INR 1.5 (<1.2); Partial Thromboplastin Time 27.7 sec (22.0-30.0); Prothrombin Time 14.7 sec (9.0-12.0)
--- NOTE | 2021-03-13 12:31 | XR ---
EXAMINATION TYPE: XR chest 2V DATE OF EXAM: 03/13/2021 COMPARISON: 03/04/2021 TECHNIQUE: PA and lateral views submitted. HISTORY: Syncope FINDINGS: Postoperative change and cardiomegaly diffuse interstitial pattern. No pneumothorax. Arthropathy of t he shoulder. Tiny right pleural effusion. Degenerative change of the spine. IMPRESSION: 1. Cardiomegaly with basilar infiltrate and interstitial pattern correlate for interstitial pneumonia versus CHF.
--- NOTE | 2021-03-13 12:39 | CT ---
EXAMINATION TYPE: CT brain ariadnaine wo con DATE OF EXAM: 03/13/2021 COMPARISON: 03/02/2021 HISTORY: Pain CT DLP: 1713.9 mGycm Automated exposure control for dose reduction was used. TECHNIQUE: CT scan of the head and cervical spine are performed without contrast. FINDINGS: Moderate generalized degenerative change. Calcification left parietal sulcus noted. Low-a ttenuation the white matter nonspecific. No midline shift or mass effect. Orbits are symmetric. Nasal septal deviation noted. No significant changes of sinusitis. Assessment spinal canal nondiagnostic due to artifact. There is severe multilevel degenerative disc d isease, facet arthropathy, and multilevel canal stenosis and foraminal encroachment. Calcification of the carotid artery noted bilaterally greater on the left with possible severe stenosis. Atherosclero tic changes aorta. There appears to be a fracture of the spinous process of C6 of indeterminate age. Sternotomy wires noted. IMPRESSION: 1. There is fracture of the C6 spinous process of indeterminate age correlate with point tenderness. Severe degenerative disc disease at all levels with suspected multilevel foraminal encroachment and c anal stenosis. There is reversal the normal cervical lordosis which is nonspecific. Recommend follow- up MRI. 2. No acute intracranial hemorrhage, mass effect, or midline shift is seen. Degenerative and nonspeci fic white matter changes most typical of remote ischemic white matter change. 3. Suspect severe carotid stenosis on the left
[2021-03-13 13:20] LABS: Appearance,Urine Clear (Clear); Bilirubin,Urine Negative (Negative); Blood,Urine Negative (Negative); Color,Urine Light Yellow; Glucose,Urine (UA) Negative (Negative); Ketones,Urine Negative (Negative); Leukocyte Esterase,Urine Negative (Negative); Nitrite,Urine Negative (Negative); PH, Urine 6.5 (5.0-8.0); Protein,Urine Trace (Negative); Specific Gravity,Urine 1.013 (1.001-1.035); Urobilinogen,Urine <2.0 mg/dL (<2.0)
[2021-03-13] MEDS ORDERED: NALOXONE 0.4 MG/ML 1 ML VIAL IV PRN (14:00)
[2021-03-13] MEDS ORDERED: ACETAMINOPHEN TAB 325 MG TAB PO PRN (14:00)
[2021-03-13] MEDS ORDERED: cefTRIAXone IN SWFI 1,000 MG/10 ML SYRINGE IVP STA (14:01)
[2021-03-13] MEDS ORDERED: AZITHROMYCIN 500 MG in SODIUM CHLORIDE 0.9% 250 ML IVPB STA (14:01)
[2021-03-13] MEDS ORDERED: HYDROcodone/APAP 5-325MG 1 EACH TAB PO STA (15:11)
[2021-03-13] MEDS ORDERED: valACYclovir 500 MG TAB PO SCH (15:45)
[2021-03-13] MEDS ORDERED: WARFARIN 5 MG TAB PO SCH (16:45)
[2021-03-13] MEDS ORDERED: WARFARIN 5 MG TAB PO ONE (18:00)
[2021-03-13] MEDS: ASCORBIC ACID 500 MG TAB PO SCH (19:48)
[2021-03-13] MEDS: amLODIPine 5 MG TAB PO SCH (19:48)
[2021-03-13] MEDS: METOPROLOL TARTRATE 50 MG TAB PO SCH (20:02)
--- NOTE | 2021-03-13 22:07 | US ---
EXAMINATION TYPE: US carotid duplex BILAT DATE OF EXAM: 03/13/2021 COMPARISON: NONE CLINICAL HISTORY: stroke. Syncope, history of right endarterectomy 20+ years ago. Exam done portable. EXAM MEASUREMENTS: RIGHT: Peak Systolic Velocity (PSV) cm/sec ----- Right CCA: 98.8 ----- Right ICA: 133.6 ----- Right ECA: 253.6 ICA/CCA ratio: 1.4 RIGHT: End Diastole cm/sec ----- Right CCA: 13.3 ----- Right ICA: 25.5 ----- Right ECA: 0.0 LEFT: Peak Systolic Velocity (PSV) cm/sec ----- Left CCA: 49.9 ----- Left ICA: 392.9 ----- Left ECA: 218.4 ICA/CCA ratio: 7.9 LEFT: End Diastole cm/sec ----- Left CCA: 0.0 ----- Left ICA: 99.0 ----- Left ECA: 13.1 VERTEBRALS (direction of flow): Right Vertebral: Antegrade Left Vertebral: Antegrade Rhythm: Normal Difficult and limited study due to patient unable to extend his neck back Right: no significant stenosis Left: severe stenosis of greater than 70%, mid ICA velocity of >400cm/s, ICA/CCA ratio of 7.9 IMPRESSION: There is antegrade flow in the vertebral arteries. Images and measurements suggest just over 50% sten osis in the right internal carotid artery. There is evidence for more than 70% stenosis in the left i nternal carotid artery. Stenosis is probably more than 90%. Bilateral plaque formation demonstrated. Criteria for Assigning % of Stenosis / Diameter reduction (Estimation based on the indirect measurements of the internal carotid artery velocities (ICA PSV). 1. Normal (no stenosis)=ICA PSV < 125 cm/s: ratio < 2.0: ICA EDV<40 cm/s. 2. Less than 50% stenosis=ICA PSV < 125 cm/s: ratio < 2.0: ICA EDV<40 cm/s. 3. 50 to 69% stenosis=ICA PSV of 125 to 230 cm/s: ration 2.0 ? 4.0: ICA EDV 40-100 cm/s. 4. Greater than 70% stenosis to near occlusion= ICA PSV > 230 cm/s: ratio > 4.0: ICA EDV > 100 cm/s. 5. Near occlusion= ICA PSV velocities may be low or undetectable: variable ratio and ICA EDV. 6. Total occlusion=unable to detect flow.
--- NOTE | 2021-03-13 23:00 | HP ---
HISTORY AND PHYSICAL I am covering for Dr. Coleman Nugent. DATE OF SERVICE: 03/13/2021. CHIEF COMPLAINT: Syncope. HISTORY OF PRESENT ILLNESS: This 80-year-old gentleman, with a past medical history of hypertension, history of DJD, history of prostate disorder, history of aortic valve replacement, history of vasectomy, history of depression, being followed by Dr. Coleman Nugent in the outpatient setting was not feeling well previously. The patient's outpatient Lopressor dose was being adjusted at this time. The patient apparently got up and felt dizzy and patient apparently passed out and became unconscious momentarily. The patient admitted for evaluation and treatment. There is no history of fever, rigors. No history of headache, loss of consciousness or seizures. White count is elevated and potassium is 5.3. The patient is taking warfarin and the patient had aortic valve replacement. PAST MEDICAL HISTORY: Hypertension, DJD, history of prostate disorder, arrhythmia, prostate cancer. PAST SURGICAL HISTORY: History of aortic valve replacement. MEDICATIONS: Home medications are prednisone, Norvasc, metoprolol, [place], vitamin D3, Ceftin, vitamin C, Cordarone, Coumadin. ALLERGIES: DOPAMINE. FAMILY HISTORY: History of cancer in the family. SOCIAL HISTORY: Previous history of smoking. No history of current smoking or alcohol intake. REVIEW OF SYSTEMS: ENT: The patient had some subconjunctival hemorrhage secondary to trauma. Cardiovascular: No angina or palpitations. Otherwise, as mentioned earlier. Respiration as mentioned earlier. GI: No nausea. No vomiting. : No dysuria. NERVOUS SYSTEM: Numbness, weakness as mentioned earlier. ALLERGY/IMMUNOLOGY: No asthma or hayfever. MUSCULOSKELETAL: No history of arthritis. CONSTITUTIONAL: As mentioned earlier. DERMATOLOGY: Negative. RHEUMATOLOGY: Negative. PSYCHIATRY: As mentioned earlier. PHYSICAL EXAMINATION: Alert and oriented times three. Pulse is 66. Blood pressure 108/57. Respirations 18. Temperature 98.3, pulse ox 97% on room air. HEENT: Conjunctivae normal. Oral mucosa moist. NECK is no jugular venous distention. No carotid bruit. No lymph node enlargement. CARDIOVASCULAR system: S1, S2 muffled. Ejection systolic murmur. RESPIRATIONS: Breath sounds diminished in the bases. A few scattered rhonchi. No crackles. ABDOMEN: Soft, nontender. No mass palpable. LEGS: No edema. No swelling. NERVOUS SYSTEM: Higher functions as mentioned earlier. Moves all 4 limbs. No focal motor or sensory deficits. LYMPHATICS: No lymph nodes palpable in the neck, axillae or groin. SKIN: No ulcer. No rash and no bleeding. JOINTS: No active deforming arthropathy. LAB STUDIES: WBC 15.1, hemoglobin 12.5. INR 1.5. Sodium 139, potassium 5.3. ASSESSMENT: 1. Syncope for evaluation, rule out cardiac arrhythmia. 2. Rule out acute transient ischemic attack. 3. Increased WBC. 4. Anemia, normocytic. 5. Coumadin monitoring. 6. Hyperkalemia. 7. History of hypertension. 8. History of degenerative joint disease. 9. History of aortic valve replacement. 10.History of prostate cancer. 11.History of depression. 12.Remote history of nicotine dependence. 13.Obesity with body mass index of 35.3. 14.Left bundle branch block on EKG. RECOMMENDATIONS AND DISCUSSION: In this 80-year-old gentleman who presented with multiple complex medical issues, we will monitor the patient closely, continue the telemetry. Cardiology consultations. Otherwise, I would also recommend neurology consultation also for the evaluation of possible TIA. Otherwise the Coumadin level is subtherapeutic at this time. We will continue to monitor. Closely follow with Cardiology. A 2D echo has been ordered as well as carotid Doppler. Guarded prognosis. Further recommendations to follow. A copy of dictation being forwarded to Dr. Coleman Nugent who is the primary physician. MMNAOMYL / VIVIANN: [id number] /
[2021-03-14] MEDS: PANTOPRAZOLE 40 MG TABLET PO SCH (06:42)
[2021-03-14 08:01] LABS: Basophils # (A) 0.1 k/uL (0-0.2); Basophils % (A) 0 %; Eosinophils # (A) 0.2 k/uL (0-0.7); Eosinophils % (A) 1 %; HCT 39.7 % (39.0-53.0); HGB 12.9 gm/dL (13.0-17.5); Lymphocytes # (A) 0.7 k/uL (1.0-4.8); Lymphocytes % (A) 5 %; MCH 30.7 pg (25.0-35.0); MCHC 32.5 g/dL (31.0-37.0); MCV 94.5 fL (80.0-100.0); Mean Platelet Volume 7.8; Monocytes # (A) 0.8 k/uL (0-1.0); Monocytes % (A) 6 %; Neutrophils # (A) 11.5 k/uL (1.3-7.7); Neutrophils % (A) 87 %; Platelet Count 214 k/uL (150-450); RDW 14.5 % (11.5-15.5); WBC 13.2 k/uL (3.8-10.6)
[2021-03-14 08:11] LABS: INR 1.6 (<1.2); Prothrombin Time 16.2 sec (9.0-12.0)
[2021-03-14 08:16] LABS: African American GFR (CKD) >90 (>60 ml/min/1.73 sqM); Anion Gap 8 mmol/L; Blood Urea Nitrogen 27 mg/dL (9-20); Calcium 8.9 mg/dL (8.4-10.2); Carbon Dioxide 27 mmol/L (22-30); Chloride 103 mmol/L (98-107); Glucose 93 mg/dL (74-99); Non-African American GFR(CKD) 81 (>60 ml/min/1.73 sqM); Potassium 4.8 mmol/L (3.5-5.1); Sodium 138 mmol/L (137-145)
[2021-03-14] MEDS: CHOLECALCIFEROL 25 MCG (1000 IU) TABLET PO SCH (08:20)
[2021-03-14] MEDS: predniSONE 10 MG TAB PO SCH (08:20)
[2021-03-14] MEDS: amLODIPine 5 MG TAB PO SCH ×2 (08:20→20:44)
[2021-03-14] MEDS: ASCORBIC ACID 500 MG TAB PO SCH ×2 (08:20→20:44)
[2021-03-14] MEDS ORDERED: AMIODARONE 200 MG TAB PO SCH (09:00)
--- NOTE | 2021-03-14 10:11 | P.PN ---
Progress Note - Text Progress Note Date: 03/14/[address] of c spine shows multilevel degenerative processes with reversal of the normal cervical lordosis. There is ankylosis of the C3-4 and C5- 6 areas. There is air within the disc space of C4-5 with Grade I anterior listhesis in this area. There is what appears to be an acute C6 SP fracture. C0-1 and C1-2 joints appear stable at this time. No dens fracture. Multilevel stenosis noted due to facet hypertrophy and severe disc degeneration. Pt appears to have a complex medical history with multiple different comorbid conditions. If pt continues to have pain or any neurological symptoms would recommend MRI of the brain and C spine. Recommend c collar at this time. Further recommendations pending full consult.
--- NOTE | 2021-03-14 10:21 | P.CNNES ---
History of Present Illness Consult date: 03/14/21 Requesting physician: Luna Mack Reason for Consult: questionable TIA History of Present Illness: This is a 80-year gentleman with medical history of right carotid stenosis status post endarterectomy more than 20 years ago, hypertension, aortic valve replacement the presented emergency department via EMS on the 03/13/2021 for a syncopal episode. She stated that he was doing well yesterday and he was standing up in the kitchen walking the around he felt lightheaded and generalized weak and then passed out. He said the episode lasted the 1-5 seconds and woke up immediately after the episode. He denied of any urinary incontinence or bowel incontinence. Because of the episode that was short lasting he stated that he denies of any jerk in the extremities. Denies of any tongue soreness at. He said the episode was unwitnessed and he lives a alone. He had a similar episode about the 2-3 weeks ago. According to the ED and mentioned that he had 3 episodes but according to him he notified me that he had only one episode yesterday. He denies of any dizziness, ringing in the ears, focal weakness, any focal numbness. Patient denies of any chest pain prior to the episode. He can stated that in the last 1 year his low pressure medication has been increased rather than taking 1 tablet he takes 2 tablets at. He walks with a cane. He denies of any headache or any neck pain. During transport of EMS the patient became bradycardic in the 30s that is documented per the ED note. He denies off any stroke or TIA in the past. Summary the patient home medication includes warfarin, amiodarone, prednisone tapering dose, amlodipine, metoprolol, [place]. He denies being on aspirin or Lipitor or any other antiplatelets. Some of the workup in the hospital consisted of: Initial vital signs: Blood pressure of 149/67, heart rate is 68, respiratory of 18, temperature of 98.3 Fahrenheit oral and pulse ox of 96% room air. CT of the head is reported as no acute intracranial hemorrhage, mass effect or midline shift is seen. Degenerative and nonspecific white matter changes most typical remote and ischemic white matter change. CT of the neck was reported as there is a fracture of the C6 spinous process of indeterminate age correlate with point tenderness. Severe degenerative disc disease at all levels with suspected multilevel for neural encroachment and canal stenosis. There is reversal the normal cervical lordosis which is nonspecific. Recommend follow-up MRI. Suspect severe carotid stenosis on the left. Carotid duplex is reported as there is antegrade flow in the vertebral arteries. Images and measurements suggest just over 50% stenosis in the right internal carotid artery. There is evidence for more than 70% stenosis in the left internal carotid artery. Stenosis is probably more than 90%. Lateral plaque formation is demonstrated. EKG is reported as sinus rhythm with first-degree AV block. Left bundle branch block. Abnormal EKG. His initial white blood cells 15.2 on repeated is 13.2. Initial potassium is 5.3 which slightly elevated. While the glucose is 110 which is unremarkable. The rest of the chemistry panel is reviewed and is unremarkable. On initial presentation the patient the dilation study as a PTT of 40.7, INR 1.5, PTT of 27.7. INR seems subtherapeutic for aortic valve replacement in my opinion. Past Medical History Past Medical History: Cancer, Hypertension, Osteoarthritis (OA), Prostate Disorder Additional Past Medical History / Comment(s): ARRYTHYTHMIA,AORTIC VALVE REPLACEMENT,PROSTATE CANCER, History of Any Multi-Drug Resistant Organisms: None Reported Past Surgical History: Tonsillectomy Additional Past Surgical History / Comment(s): VASCECTOMY,AORTIC VALVE REPLACEMENT, CAROTID ARTERY RIGHT SIDE Past Anesthesia/Blood Transfusion Reactions: No Reported Reaction Past Psychological History: Depression Smoking Status: Former smoker Past Alcohol Use History: None Reported Additional Past Alcohol Use History / Comment(s): STARTED SMOKING AT AGE 13 QUIT 1998 [id number] Past Drug Use History: None Reported - Past Family History Mother Family Medical History: Cancer Medications and Allergies Home Medications Medication Instructions Recorded Confirmed Type Metoprolol Tartrate [Lopressor] 50 mg PO BID 11/18/16 03/13/21 History Amiodarone [Cordarone] 200 mg PO DAILY 05/14/19 03/13/21 History HYDROcodone/APAP 5-325MG [[place] 1 tab PO BID PRN 05/14/19 03/13/21 History 5-325] amLODIPine [Norvasc] 5 mg PO BID 05/14/19 03/13/21 History Ascorbic Acid [Vitamin C] 500 mg PO BID #20 tab 03/05/21 03/13/21 Rx Cefuroxime Axetil [Ceftin] 500 mg PO BID 4 Days #8 tab 03/05/21 03/13/21 Rx Cholecalciferol [Vitamin D3 (25 50 mcg PO DAILY #20 tablet 03/05/21 03/13/21 Rx Mcg = 1000 Iu)] Warfarin [Coumadin] 2.5 mg PO DIRECTED 03/13/21 03/13/21 History Warfarin [Coumadin] 5 mg PO DIRECTED 03/13/21 03/13/21 History predniSONE See Taper PO DAILY 03/13/21 03/13/21 History Allergies Allergy/AdvReac Type Severity Reaction Status Date / Time dopamine Allergy "WAS TOLD Verified 03/13/21 12:36 NOT TO HAVE RX AGAIN,VERY ILL STATES ALMOST " Physical Examination - Vital Signs Vital Signs: Vital Signs Temp Pulse Pulse Resp BP BP Pulse Ox 03/14/21 08:33 97.8 F 71 16 135/70 95 03/14/21 04:00 61 16 147/80 95 03/13/21 23:18 60 17 132/65 96 03/13/21 19:42 98.4 F 58 L 16 144/64 95 03/13/21 18:36 98.3 F 66 18 108/57 97 03/13/21 18:00 66 18 108/57 97 03/13/21 13:51 67 18 133/49 93 L 03/13/21 11:46 98.3 F 68 18 149/67 96 Intake and Output 03/13/21 03/14/21 03/14/21 22:59 06:59 14:59 Intake Total 260 Output Total 350 200 Balance -350 -200 260 Intake: Oral 260 Output: Urine 350 200 Other: Voiding Method Urinal Urinal # Voids 1 1 Weight 117.934 kg 104.4 kg GENERAL: The patient is sitting in a chair and is not in acute distress. CHEST: The heart rate is regular rate rhythm. No murmurs to auscultation. LUNG: Clear to auscultation bilaterally no wheezing noted throughout. Not labored breathing. ABDOMEN/GI: Bowel sounds present in all 4 quadrants. No tenderness to palpation throughout. NEUROLOGICAL: Higher mental function: The patient is awake, alert, oriented to self, place and time. Patient is following commands. No aphasia and no neglect. Cranial nerves: The pupils are round, equal and reactive to light and accommodation. Visual minor are full to confrontation throughout. Extraocular movement is intact no nystagmus is noted. Has some echymoses over the right lower eye sclera. Facial sensation is normal to touch throughout. The facial strength is normal throughout. Hearing is moderately bilaterally to hand rub. Tongue is midline and moved [id number] without any difficulty. No dysarthria is noted. Shoulder shrug is normal bilaterally. Motor: Gait is deferred. The strength is 5 over 5 throughout. Normal tone and bulk. Cerebellum: Normal finger to nose bilaterally. Sensation: Has decrease sensation over the left thumb and index finger. Sensation is normal to touch throughout. Reflexes (right/left): 2+ throughout except ankles are 1+ bilaterally. Plantars are downgoing bilaterally. Results Urine analysis is negative for UTI Lord virus PCR was not detected. - Laboratory Findings CBC and BMP: 03/14/21 07:25 03/14/21 07:25 Abnormal Lab Findings: Abnormal Labs 03/13/21 03/13/21 03/13/21 11:46 11:46 11:46 WBC 15.2 H RBC 4.02 L Hgb 12.5 L Hct 37.9 L Neutrophils # 14.3 H Lymphocytes # 0.4 L PT 14.7 H INR 1.5 H Potassium BUN Glucose Urine Protein Trace H 03/13/21 03/14/21 03/14/21 11:46 07:25 07:25 WBC 13.2 H RBC 4.20 L Hgb 12.9 L Hct Neutrophils # 11.5 H Lymphocytes # 0.7 L PT INR Potassium 5.3 H BUN 32 H 27 H Glucose 110 H Urine Protein 03/14/21 07:25 WBC RBC Hgb Hct Neutrophils # Lymphocytes # PT 16.2 H INR 1.6 H Potassium BUN Glucose Urine Protein Assessment and Plan Assessment: Syncopal episode. Seems cardiac in etiology (especially with reported heart rate of 30's via EMS on route). Rule out TIA. Unlikely seizure. Significant left internal carotid artery stenosis (approximately 90% per carotid duplex) Fracture of the C6 spinous process of indeterminate age per repoted CT (and I feel patient has left C6 cervical radiculopathy) History of right carotid carotid enterectomy (>20 years ago) History of aortic valve replacement on Coumadin with subtherapeutic INR (1.5) Significant cervical spondylosis Hypertension Plan: * CT of the head is reported as no acute intracranial hemorrhage, mass effect or midline shift is seen. Degenerative and nonspecific white matter changes most typical remote and ischemic white matter change. * CT of the neck was reported as there is a fracture of the C6 spinous process of indeterminate age correlate with point tenderness. Severe degenerative disc disease at all levels with suspected multilevel for neural encroachment a nd canal stenosis. There is reversal the normal cervical lordosis which is nonspecific. Recommend follow-up MRI. Suspect severe carotid stenosis on the left. * Carotid duplex is reported as there is antegrade flow in the vertebral arteries. Images and measurements suggest just over 50% stenosis in the right internal carotid artery. There is evidence for more than 70% stenosis in the left internal carotid artery. Stenosis is probably more than 90%. Lateral plaque formation is demonstrated. * In addition to the Coumadin I started the patient on aspirin especially with the carotid stenosis. I started the patient on Lipitor 80 mg daily at bedtime which would help to stabilize the plaque. * 2-D echo was ordered. * Ordered CT angiography of the head and neck to assess whether it truly is si gnificant stenosis as seen on the the duplex or not. * Ordered lipid panel, TSH level and orthostatic vitals. * Ordered routine EEG and will not start the patient on antiepileptic drug unless there is epileptiform discharges or seizure on the EEG. * Continue continuous cardiac monitoring * Every 4 hour neuro checks. * Consulted physical therapy and occupation therapy for gait training. * Cardiology team is consulted * I consulted vascular surgery team for the significant left internal carotid artery * I consulted the orthopedic surgery team for the C6 fracture repoted on imaging. * I feel the patient INR is subtherapeutic and will defer management of coumadin to cardiology team and primary team. * We'll defer the rest of medical management to the primary team. The plan is discussed with the patient's nurse. Thank you for the consult Dr. Barney will start neurology coverage tomorrow (03/15/2021) AM. Sylvester Campos M.D. Neuro-hospitalist Time with Patient: Greater than 30
[2021-03-14] MEDS: HYDROcodone/APAP 5-325MG 1 EACH TAB PO PRN ×3 (10:49→23:35)
--- NOTE | 2021-03-14 11:48 | CT ---
EXAMINATION TYPE: CT angio head neck DATE OF EXAM: 03/14/2021 HISTORY: carotid stenosis COMPARISON: CT DLP: 882.7 mGycm. Automated Exposure Control for Dose Reduction was Utilized. TECHNIQUE: CTA scan of the neck is performed with IV Contrast, patient injected with 65 mL of Isovue 370, axial images are obtained, coronal and sagittal reformatted images are reviewed. Three-D recons tructed images are created on an independent workstation and reviewed. FINDINGS: The vertebrobasilar and carotid systems are patent with no sizable intracranial aneurysm or vascular malformation. Degenerative change of the brain with nonspecific white matter changes most t ypical remote ischemia. Atherosclerotic change of the aorta and origins of the great vessels. Subsegmental changes involving the lung are noted with scattered groundglass findings. Assessment of the carotid bifurcations demonstrates complete occlusion of the left carotid bifurcatio n and proximal internal carotid artery. Appears to be extensive atherosclerotic plaque involving the right carotid bifurcation. Approximately 70% to 80% stenosis. IMPRESSION: 1. Short segmental occlusion or critical stenosis proximal left ICA. 2. Suspect severe right proximal ICA stenosis. 3. No intracranial aneurysm.
[2021-03-14] MEDS: AZITHROMYCIN 500 MG in SODIUM CHLORIDE 0.9% 250 ML IVPB SCH (11:56)
[2021-03-14] MEDS: METOPROLOL TARTRATE 50 MG TAB PO SCH (11:57)
[2021-03-14] MEDS: ASPIRIN 81 MG PO SCH (11:58)
--- NOTE | 2021-03-14 12:00 | P.CRDCN ---
History of Present Illness History of present illness: HISTORY OF PRESENTING ILLNESS This is a 80-year-old male with a past medical history significant for paroxysmal atrial fibrillation, hypertension, and mechanical aortic valve replacement 1998. Patient follows in the office with Dr. Prasad. We have been asked to see the patient in consultation for syncope. Patient was recently seen / secondary to syncopal episode while he was out walking towards some cats. He was worked up with echocardiogram which showed concern of moderate to severe mechanical aortic valve regurgitation with recommendations for possible ROBBY if clinically indicated. This has been monitored in the office. Patient however has noticed increased episodes of falls and lightheadedness. He had felt fairly well since being discharged however had been walking about the kitchen and suddenly he came lightheaded and fell. It appears he lost consciousness. He had difficulty getting up from the ground and therefore called EMS. EMS note documents patient had another syncopal episode for no clear documentation of events. They did however the patient up to monitor with EKG showing sinus bradycardia with heart rates in the 35s. It does appear there was a transition of somewhat slower heart rates for the first half of the EKG and then sinus bradycardia for the second half with some irregularity. There is no clear A-V dissociation and does not appear to be any P waves buried, no clear-cut evidence of high degree AV block. He has had workup with carotid ultrasound showing concern of left internal carotid artery stenosis. EKG shows sinus rhythm with left bundle branch block, first-degree AV block. He denies any shortness breath or chest pain. He admits to some back pain where he fell. He does admit to some episodes of feeling lightheaded however predominantly has been doing fairly well at home over the past week and a half. Blood work reviewed with white blood cell count 15.2, hemoglobin 12.5, INR subtherapeutic at 1.5, potassium 5.3, BUN 32, creatinine 1.06, troponin negative 1, cholesterol 233, LDL 139, joshua virus not detected. CTA of the neck was performed however pending. REVIEW OF SYSTEMS At the time of my exam: CONSTITUTIONAL: Denies fever or chills. +lightheadedness CARDIOVASCULAR: Denies chest pain, shortness of breath, orthopnea, PND or palpitations. RESPIRATORY: Denies cough. GASTROINTESTINAL: Denies abdominal pain, diarrhea, constipation, nausea or vomiting. MUSCULOSKELETAL: Denies myalgias. NEUROLOGIC: Denies numbness, tingling or weakness. ENDOCRINE: Denies fatigue, weight change, polydipsia or polyurina. GENITOURINARY: Denies burning, hematuria or urgency with micturation. HEMATOLOGIC: Denies history of anemia or bleeding. PHYSICAL EXAMINATION Vital signs reviewed. CONSTITUTIONAL: No apparent distress. HEENT: Head is normocephalic. Pupils are equal, round. Sclerae anicteric. Mucous membranes of the mouth are moist. No JVD. No carotid bruit. CHEST EXAMINATION: Lungs are clear to auscultation. No chest wall tenderness is noted on palpation or with deep breathing. HEART EXAMINATION: Regular rate and rhythm. S1, S2 heard. +2/4 diastolic murmur, +loud mechanical click, no gallops or rub. ABDOMEN: Soft, nontender. Positive bowel sounds. EXTREMITIES: 2+ peripheral pulses, no lower extremity edema and no calf tenderness. NEUROLOGIC EXAMINATION: Patient is awake, alert and oriented x3. ASSESSMENT Syncope, recurrent Coumadin coagulopathy, subtherapeutic History of mechanical aortic valve replacement, 1998 Sinus bradycardia, heart rates in the 30s with EMS History of paroxysmal atrial fibrillation/flutter Hypertension History of right carotid endarterectomy Left internal carotid artery stenosis, CTA pending Left bundle branch block 1st degree AV block Moderate to severe aortic insufficiency PLAN Echocardiogram previously obtained from prior admission. It did show preserved ejection fraction with concern of severe aortic insufficiency. No need to repeat. Carotid ultrasound appears to have significant left internal carotid artery stenosis however unilateral disease should not cause significant hypoperfusion. Await CTA results. There was what appeared to be sinus bradycardia with heart rate 35 noted during EMS run when patient had another syncopal episode. Unclear if this was taken before after the event. No clear documentation by EMS. No obvious signs of higher degree AV block on EMS EKG. Continue telemetry monitoring. Hold amiodarone, A-V jes blocking agents. If patient has significant bradycardia despite holding A-V jes blocking agents, patient will likely be a good candidate for pacemaker. Likely plan for monitoring off of A-V jes agents and outpatient 30 day event monitor on discharge if no significant reshma arrhythmias noted. Past Medical History Past Medical History: Cancer, Hypertension, Osteoarthritis (OA), Prostate Disorder Additional Past Medical History / Comment(s): ARRYTHYTHMIA,AORTIC VALVE REPLACEMENT,PROSTATE CANCER, History of Any Multi-Drug Resistant Organisms: None Reported Past Surgical History: Tonsillectomy Additional Past Surgical History / Comment(s): VASCECTOMY,AORTIC VALVE REP LACEMENT, CAROTID ARTERY RIGHT SIDE Past Anesthesia/Blood Transfusion Reactions: No Reported Reaction Past Psychological History: Depression Smoking Status: Former smoker Past Alcohol Use History: None Reported Additional Past Alcohol Use History / Comment(s): STARTED SMOKING AT AGE 13 QUIT 1998 SMOKED1-2PPD Past Drug Use History: None Reported - Past Family History Mother Family Medical History: Cancer Medications and Allergies Home Medications Medication Instructions Recorded Confirmed Type Metoprolol Tartrate [Lopressor] 50 mg PO BID 11/18/16 03/13/21 History Amiodarone [Cordarone] 200 mg PO DAILY 05/14/19 03/13/21 History HYDROcodone/APAP 5-325MG [[place] 1 tab PO BID PRN 05/14/19 03/13/21 History 5-325] amLODIPine [Norvasc] 5 mg PO BID 05/14/19 03/13/21 History Ascorbic Acid [Vitamin C] 500 mg PO BID #20 tab 03/05/21 03/13/21 Rx Cefuroxime Axetil [Ceftin] 500 mg PO BID 4 Days #8 tab 03/05/21 03/13/21 Rx Cholecalciferol [Vitamin D3 (25 50 mcg PO DAILY #20 tablet 03/05/21 03/13/21 Rx Mcg = 1000 Iu)] Warfarin [Coumadin] 2.5 mg PO DIRECTED 03/13/21 03/13/21 History Warfarin [Coumadin] 5 mg PO DIRECTED 03/13/21 03/13/21 History predniSONE See Taper PO DAILY 03/13/21 03/13/21 History Allergies Allergy/AdvReac Type Severity Reaction Status Date / Time dopamine Allergy "WAS TOLD Verified 03/13/21 12:36 NOT TO HAVE RX AGAIN,VERY ILL STATES ALMOST " Physical Exam Vitals: Vital Signs Temp Pulse Pulse Resp BP BP Pulse Ox 03/14/21 08:33 97.8 F 71 16 135/70 95 03/14/21 04:00 61 16 147/80 95 03/13/21 23:18 60 17 132/65 96 03/13/21 19:42 98.4 F 58 L 16 144/64 95 03/13/21 18:36 98.3 F 66 18 108/57 97 03/13/21 18:00 66 18 108/57 97 03/13/21 13:51 67 18 133/49 93 L Intake and Output 03/13/21 03/14/21 03/14/21 22:59 06:59 14:59 Intake Total 260 Output Total 350 200 Balance -350 -200 260 Intake: Oral 260 Output: Urine 350 200 Other: Voiding Method Urinal Urinal # Voids 1 1 Weight 117.934 kg 104.4 kg Results 03/14/21 07:25 03/14/21 07:25 Cardiac Enzymes 03/13/21 03/13/21 Range/Units 11:46 11:46 AST 35 (17-59) U/L Troponin I <0.012 (0.000-0.034) ng/mL Coagulation 03/13/21 03/14/21 Range/Units 11:46 07:25 PT 14.7 H 16.2 H (9.0-12.0) sec APTT 27.7 (22.0-30.0) sec Lipids 03/14/21 Range/Units 07:25 Triglycerides 137 (<150) mg/dL Cholesterol 233 H (<200) mg/dL HDL Cholesterol 67 H (40-60) mg/dL CBC 03/13/21 03/14/21 Range/Units 11:46 07:25 WBC 15.2 H 13.2 H (3.8-10.6) k/uL RBC 4.02 L 4.20 L (4.30-5.90) m/uL Hgb 12.5 L 12.9 L (13.0-17.5) gm/dL Hct 37.9 L 39.7 (39.0-53.0) % Plt Count 217 214 (150-450) k/uL Comprehensive Metabolic Panel 03/13/21 03/14/21 Range/Units 11:46 07:25 Sodium 137 138 (137-145) mmol/L Potassium 5.3 H 4.8 (3.5-5.1) mmol/L Chloride 104 103 (98-107) mmol/L Carbon Dioxide 24 27 (22-30) mmol/L BUN 32 H 27 H (9-20) mg/dL Creatinine 1.06 0.89 (0.66-1.25) mg/dL Glucose 110 H 93 (74-99) mg/dL Calcium 8.8 8.9 (8.4-10.2) mg/dL AST 35 (17-59) U/L ALT 22 (4-49) U/L Alkaline Phosphatase 121 (38-126) U/L Total Protein 7.1 (6.3-8.2) g/dL Albumin 3.6 (3.5-5.0) g/dL Current Medications Generic Name Dose Route Start Last Admin Trade Name Freq PRN Reason Stop Dose Admin Acetaminophen 650 mg 03/13/21 14:00 Acetaminophen Tab 325 Mg Tab PO Q6HR PRN Mild Pain or Fever > 100.5 Hydrocodone Bitart/Acetaminophen 1 each 03/13/21 16:33 03/14/21 10:49 Hydrocodone/Apap 5-325mg 1 Each Tab PO 1 each BID PRN Administration Pain Alprazolam 0.25 mg 03/13/21 16:34 Alprazolam 0.25 Mg Tab PO TID PRN Anxiety Amiodarone HCl 200 mg 03/14/21 09:00 03/14/21 08:20 Amiodarone 200 Mg Tab PO 200 mg DAILY JON Administration Amlodipine Besylate 5 mg 03/13/21 21:00 03/14/21 08:20 Amlodipine 5 Mg Tab PO 5 mg BID JON Administration Ascorbic Acid 500 mg 03/13/21 21:00 03/14/21 08:20 Ascorbic Acid 500 Mg Tab PO 500 mg BID JON Administration Aspirin 81 mg 03/14/21 10:00 Aspirin 81 Mg PO DAILY [facility] Atorvastatin Calcium 80 mg 03/14/21 21:00 Atorvastatin 80 Mg Tab PO HS [facility] Cholecalciferol 50 mcg 03/14/21 09:00 03/14/21 08:20 Cholecalciferol 25 Mcg (1000 Iu) Tablet PO 50 mcg DAILY JON Administration Ceftriaxone Sodium 1 gm/ 50 mls @ 100 mls/hr 03/14/21 09:00 03/14/21 08:20 Sodium Chloride IVPB 100 mls/hr Q24HR JON Administration Azithromycin 500 mg/ Sodium 250 mls @ 250 mls/hr 03/14/21 09:00 Chloride IVPB DAILY [facility] Metoprolol Tartrate 50 mg 03/13/21 21:00 03/13/21 20:02 Metoprolol Tartrate 50 Mg Tab PO Not Given BID [facility] Miscellaneous Information 0 each 03/13/21 16:40 Warfarin Per Pharmacy MISCELLANE DIRECTED PRN PER PROTOCOL Naloxone HCl 0.2 mg 03/13/21 14:00 Naloxone 0.4 Mg/Ml 1 Ml Vial IV Q2M PRN Opioid Reversal Pantoprazole Sodium 40 mg 03/14/21 07:30 03/14/21 06:42 Pantoprazole 40 Mg Tablet PO 40 mg [id number] JON Administration Prednisone 10 mg 03/14/21 09:00 03/14/21 08:20 Prednisone 10 Mg Tab PO 10 mg DAILY JON Administration Warfarin Sodium 5 mg 03/14/21 18:00 Warfarin 5 Mg Tab PO 03/14/21 18:01 ONCE@1800 ONE Protocol Intake and Output 03/13/21 03/14/21 03/14/21 22:59 06:59 14:59 Intake Total 260 Output Total 350 200 Balance -350 -200 260 Intake: Oral 260 Output: Urine 350 200 Other: Voiding Method Urinal Urinal # Voids 1 1 Weight 117.934 kg 104.4 kg 03/14/21 07:25 03/14/21 07:25
--- NOTE | 2021-03-14 15:24 | P.GSCN ---
History of Present Illness Consult date: 03/14/21 Reason for Consult: Medically severe left ICA stenosis. History of present illness: Patient is an 80-year-old gentleman who was recently admitted to the hospital for pneumonia and is currently being treated for this problem with IV antibiotics. During his hospital stay and there was a question as to whether or not the patient experienced a transient ischemic attack. Carotid duplex and eventually a CTA of the carotid arteries were performed. This demonstrates findings consistent with hemodynamically severe left ICA stenosis. Patient has a history of undergoing a right CEA approximately 25 years prior. I cannot obtain a history of focal motor neurologic deficit that I could definitely say was related to the carotid artery issue. I evaluation today demonstrates the patient be awake alert cooperative no apparent distress. Neck: Supple and free of adenopathy. A left carotid bruit is noted. Heart: Regular. Neurologic exam: No focal motor neurologic deficits were demonstrated. Abdomen: Soft and otherwise benign. I did review CTA and carotid duplex results both of which are consistent with hemodynamically severe left ICA stenosis. Discussion: Currently the patient is being treated for pneumonia and once this has been sadaf ared the patient would be considered for carotid endarterectomy versus TCAR procedure. This can be worked up as an outpatient. Past Medical History Past Medical History: Cancer, Hypertension, Osteoarthritis (OA), Prostate Disorder Additional Past Medical History / Comment(s): ARRYTHYTHMIA,AORTIC VALVE REPLACEMENT,PROSTATE CANCER, History of Any Multi-Drug Resistant Organisms: None Reported Past Surgical History: Tonsillectomy Additional Past Surgical History / Comment(s): VASCECTOMY,AORTIC VALVE REPLACEMENT, CAROTID ARTERY RIGHT SIDE Past Anesthesia/Blood Transfusion Reactions: No Reported Reaction Past Psychological History: Depression Smoking Status: Former smoker Past Alcohol Use History: None Reported Additional Past Alcohol Use History / Comment(s): STARTED SMOKING AT AGE 13 QUIT 1998 SMOKED1-2PPD Past Drug Use History: None Reported - Past Family History Mother Family Medical History: Cancer Medications and Allergies Home Medications Medication Instructions Recorded Confirmed Type Metoprolol Tartrate [Lopressor] 50 mg PO BID 11/18/16 03/13/21 History Amiodarone [Cordarone] 200 mg PO DAILY 05/14/19 03/13/21 History HYDROcodone/APAP 5-325MG [[place] 1 tab PO BID PRN 05/14/19 03/13/21 History 5-325] amLODIPine [Norvasc] 5 mg PO BID 05/14/19 03/13/21 History Ascorbic Acid [Vitamin C] 500 mg PO BID #20 tab 03/05/21 03/13/21 Rx Cefuroxime Axetil [Ceftin] 500 mg PO BID 4 Days #8 tab 03/05/21 03/13/21 Rx Cholecalciferol [Vitamin D3 (25 50 mcg PO DAILY #20 tablet 03/05/21 03/13/21 Rx Mcg = 1000 Iu)] Warfarin [Coumadin] 2.5 mg PO DIRECTED 03/13/21 03/13/21 History Warfarin [Coumadin] 5 mg PO DIRECTED 03/13/21 03/13/21 History predniSONE See Taper PO DAILY 03/13/21 03/13/21 History Allergies Allergy/AdvReac Type Severity Reaction Status Date / Time dopamine Allergy "WAS TOLD Verified 03/13/21 12:36 NOT TO HAVE RX AGAIN,VERY ILL STATES ALMOST " Surgical - Exam Osteopathic Statement: *. No significant issues noted on an osteopathic structural exam other than those noted in the History and Physical/Consult. Vital Signs Temp Pulse Resp BP Pulse Ox 98.3 F 68 18 149/67 96 03/13/21 11:46 03/13/21 11:46 03/13/21 11:46 03/13/21 11:46 03/13/21 11:46 Results - Labs 03/14/21 07:25 03/14/21 07:25 Abnormal Lab Results - Last 24 Hours (Table) 03/14/21 03/14/21 03/14/21 Range/Units 07:25 07:25 07:25 WBC 13.2 H (3.8-10.6) k/uL RBC 4.20 L (4.30-5.90) m/uL Hgb 12.9 L (13.0-17.5) gm/dL Neutrophils # 11.5 H (1.3-7.7) k/uL Lymphocytes # 0.7 L (1.0-4.8) k/uL PT 16.2 H (9.0-12.0) sec INR 1.6 H (<1.2) BUN 27 H (9-20) mg/dL Cholesterol (<200) mg/dL LDL Cholesterol, Calc (0-99) mg/dL HDL Cholesterol (40-60) mg/dL 03/14/21 Range/Units 07:25 WBC (3.8-10.6) k/uL RBC (4.30-5.90) m/uL Hgb (13.0-17.5) gm/dL Neutrophils # (1.3-7.7) k/uL Lymphocytes # (1.0-4.8) k/uL PT (9.0-12.0) sec INR (<1.2) BUN (9-20) mg/dL Cholesterol 233 H (<200) mg/dL LDL Cholesterol, Calc 139 H (0-99) mg/dL HDL Cholesterol 67 H (40-60) mg/dL Diabetes panel 03/14/21 03/14/21 Range/Units 07:25 07:25 Sodium 138 (137-145) mmol/L Potassium 4.8 (3.5-5.1) mmol/L Chloride 103 (98-107) mmol/L Carbon Dioxide 27 (22-30) mmol/L BUN 27 H (9-20) mg/dL Creatinine 0.89 (0.66-1.25) mg/dL Glucose 93 (74-99) mg/dL Calcium 8.9 (8.4-10.2) mg/dL Triglycerides 137 (<150) mg/dL HDL Cholesterol 67 H (40-60) mg/dL Thyroid panel 03/14/21 Range/Units 07:25 TSH 2.580 (0.465-4.680) mIU/L Calcium panel 03/14/21 Range/Units 07:25 Calcium 8.9 (8.4-10.2) mg/dL Pituitary panel 03/14/21 03/14/21 Range/Units 07:25 07:25 Sodium 138 (137-145) mmol/L Potassium 4.8 (3.5-5.1) mmol/L Chloride 103 (98-107) mmol/L Carbon Dioxide 27 (22-30) mmol/L BUN 27 H (9-20) mg/dL Creatinine 0.89 (0.66-1.25) mg/dL Glucose 93 (74-99) mg/dL Calcium 8.9 (8.4-10.2) mg/dL TSH 2.580 (0.465-4.680) mIU/L Adrenal panel 03/14/21 Range/Units 07:25 Sodium 138 (137-145) mmol/L Potassium 4.8 (3.5-5.1) mmol/L Chloride 103 (98-107) mmol/L Carbon Dioxide 27 (22-30) mmol/L BUN 27 H (9-20) mg/dL Creatinine 0.89 (0.66-1.25) mg/dL Glucose 93 (74-99) mg/dL Calcium 8.9 (8.4-10.2) mg/dL
[2021-03-14] MEDS ORDERED: WARFARIN 5 MG TAB PO ONE (18:00)
--- NOTE | 2021-03-14 19:12 | PN ---
PROGRESS NOTE DATE OF SERVICE: 03/14/2021 This 80-year-old gentleman who was admitted with syncope and is being evaluated for possible cardiac arrhythmia. A CT angio showed short-segment occlusion and critical stenosis proximal left ICA. The patient also had severe right proximal ICA stenosis also. The patient was seen by Dr. Rodriguez. The patient will be considered for carotid endarterectomy versus TCR procedure as an outpatient per Dr. Rodriguez. No chest pain. No palpitations. No fever. PHYSICAL EXAMINATION: Alert and oriented x3. Pulse 71. Blood pressure 131/55, respirations 16, temperature 97.7, pulse ox 94% on room air. HEENT: Conjunctivae normal. NECK: No JVD. CARDIOVASCULAR: S1, S2 muffled. RESPIRATIONS: Breath sounds diminished in the bases. A few scattered rhonchi. ABDOMEN: Soft. NERVOUS SYSTEM: No focal deficits. LABS: WBC 13.1, hemoglobin 12.9, INR 1.6 and cholesterol is 233. UA noted. ASSESSMENT: 1. Syncope for evaluation, possible cardiac arrhythmia. 2. Possible acute transient ischemic attack. 3. Rule out pneumonia. 4. Left carotid stenosis and suspected severe right proximal ICA stenosis. 5. Increased WBC. 6. Anemia, normocytic. 7. Coumadin monitoring. 8. Hypokalemia. 9. History of hypertension. 10.History of degenerative joint disease. 11.History of aortic valve replacement. 12.History of prostate cancer. 13.History of depression. 14.Remote history of nicotine dependence. 15.Obesity with body mass of 34.6. 16.Left bundle branch block on the EKG. RECOMMENDATIONS AND DISCUSSION: Recommend to continue current medications, symptomatic treatment. Otherwise, at this time, I recommend continue antiplatelet agents. Closely follow with Neurology and cardiovascular team. Guarded prognosis. Further recommendations to follow. We will recommend a course of bronchodilators and continue to monitor. The patient was treated empirically on antibiotics. MMODL / IJN: [id number] /
[2021-03-14] MEDS: ATORVASTATIN 80 MG TAB PO SCH (20:44)
[2021-03-15] MEDS: PANTOPRAZOLE 40 MG TABLET PO SCH (06:30)
[2021-03-15 08:02] LABS: Basophils # (A) 0.1 k/uL (0-0.2); Basophils % (A) 1 %; Eosinophils # (A) 0.2 k/uL (0-0.7); Eosinophils % (A) 2 %; HCT 40.1 % (39.0-53.0); HGB 12.9 gm/dL (13.0-17.5); Lymphocytes # (A) 0.7 k/uL (1.0-4.8); Lymphocytes % (A) 6 %; MCH 30.6 pg (25.0-35.0); MCHC 32.1 g/dL (31.0-37.0); MCV 95.4 fL (80.0-100.0); Mean Platelet Volume 7.6; Monocytes # (A) 0.7 k/uL (0-1.0); Monocytes % (A) 6 %; Neutrophils # (A) 10.7 k/uL (1.3-7.7); Neutrophils % (A) 86 %; Platelet Count 205 k/uL (150-450); RDW 14.5 % (11.5-15.5); WBC 12.5 k/uL (3.8-10.6)
[2021-03-15 08:10] LABS: INR 2.1 (<1.2); Prothrombin Time 20.2 sec (9.0-12.0)
[2021-03-15 08:11] LABS: African American GFR (CKD) >90 (>60 ml/min/1.73 sqM); Anion Gap 4 mmol/L; Blood Urea Nitrogen 24 mg/dL (9-20); Carbon Dioxide 30 mmol/L (22-30); Chloride 102 mmol/L (98-107); Glucose 104 mg/dL (74-99); Non-African American GFR(CKD) 82 (>60 ml/min/1.73 sqM); Potassium 4.6 mmol/L (3.5-5.1); Sodium 136 mmol/L (137-145)
--- NOTE | 2021-03-15 08:13 | P.CNOR ---
History of Present Illness - HPI Consult date: 03/15/21 Consult reason: fracture History of present illness: 80 yo male with complex medical history presented after a syncopal episode and ffs at home. States he went to feed the cats, came back to kitchen and got light headed and tumbled over. He awoke on the ground, did not know if he hit his head and had to roll to get the phone to call 911. Came to [facility] Via EMS. States no neck pain at this time, no head pain, no change in vision. No f/c/sob/cp. No increased weakness in hands or legs. States he has had some left hand numnbess in the index finger and thumb for years now but that has not changed. Denies any bowel or bladder incontinence denies any perineal numbness or tingling. He states for years she feels like he has been leaning forward and he has had low back problems for years as well. No acute changes needs this time Review of Systems 14 points review of systems completed and as stated in HPI, all other systems reviewed are negative. Past Medical History Past Medical History: Cancer, Hypertension, Osteoarthritis (OA), Prostate Disorder Additional Past Medical History / Comment(s): ARRYTHYTHMIA,AORTIC VALVE REPLACEMENT,PROSTATE CANCER, History of Any Multi-Drug Resistant Organisms: None Reported Past Surgical History: Tonsillectomy Additional Past Surgical History / Comment(s): VASCECTOMY,AORTIC VALVE REPLACEMENT, CAROTID ARTERY RIGHT SIDE Past Anesthesia/Blood Transfusion Reactions: No Reported Reaction Past Psychological History: Depression Smoking Status: Former smoker Past Alcohol Use History: None Reported Additional Past Alcohol Use History / Comment(s): STARTED SMOKING AT AGE 13 QUIT 1998 [id number] Past Drug Use History: None Reported - Past Family History Mother Family Medical History: Cancer Medications and Allergies Home Medications Medication Instructions Recorded Confirmed Type Metoprolol Tartrate [Lopressor] 50 mg PO BID 11/18/16 03/13/21 History Amiodarone [Cordarone] 200 mg PO DAILY 05/14/19 03/13/21 History HYDROcodone/APAP 5-325MG [[place] 1 tab PO BID PRN 05/14/19 03/13/21 History 5-325] amLODIPine [Norvasc] 5 mg PO BID 05/14/19 03/13/21 History Ascorbic Acid [Vitamin C] 500 mg PO BID #20 tab 05/07/21 05/15/21 Rx Cefuroxime Axetil [Ceftin] 500 mg PO BID 4 Days #8 tab 03/05/21 03/13/21 Rx Cholecalciferol [Vitamin D3 (25 50 mcg PO DAILY #20 tablet 03/05/21 03/13/21 Rx Mcg = 1000 Iu)] Warfarin [Coumadin] 2.5 mg PO DIRECTED 03/13/21 03/13/21 History Warfarin [Coumadin] 5 mg PO DIRECTED 03/13/21 03/13/21 History predniSONE See Taper PO DAILY 03/13/21 03/13/21 History Allergies Allergy/AdvReac Type Severity Reaction Status Date / Time dopamine Allergy "WAS TOLD Verified 03/13/21 12:36 NOT TO HAVE RX AGAIN,VERY ILL STATES ALMOST " Physical Examination Osteopathic Statement: *. No significant issues noted on an osteopathic structural exam other than those noted in the History and Physical/Consult. PHYSICAL EXAMINATION: Vitals: Stable at this time General: Awake, alert, appropriate for age, in no acute distress. HEENT: No unusual neck masses around region of lateral neck triangle, thyroid, supraclavicular groove. Extremities: Skin warm and dry without no acute lesions, coloration, temperature, skin intact, no tenderness or erythema. Integument: Hairy patches: Absent Dorsal skin dimples: Absent Cafe au lait spots: Absent Surgical incisions: None Palpation: Please see Pain drawing on Intake sheet for further detail. (Tenderness = T, Nontender = NT, Swelling = S, Ecchymosis = E) Findings on Midline and paraspinal palpation and percussion: Cervical: NT Thoracic: NT Lumbar: NT Sacral: NT Special findings: No midline tenderness no ballottement of the cervical thoracic or lumbar spine no paraspinal tenderness at this time POSTURAL and MUSCULO-SKELETAL EVALUATION: Coronal Balance: Neutral Recumbent testing: Patient can not lay flat on back Sagittal Balance: Positive Shoulder Profile: Level Pelvic Girdle: Well Neck ROM: Some restriction in forward gaze he cannot lift his head past neutral. He has difficulty rotating to the right but otherwise no pain with any motion Lumbar ROM: Restricted in rotation and bending has forward bent posture with flattening of the normal lumbar lordosis Shoulder ROM: Symmetric in abduction, ER/IR Hip ROM: Symmetric in abduction, adduction, ER/IR Knee ROM: Symmetric and intact in Flexion / extension Hands: Patient has thenar muscle wasting as well as hyperthenar muscle wasting noted bilaterally in the hands otherwise there is mild ecchymosis about the hands but no other acute changes Feet: Normal appearing structure L and R VASCULAR STATUS : Wrist Pulses: [2/4 bilateral radial and ulnar] Pedal Pulses: [2/4 bilateral DP and PT] Color: [Normal] Edema: [None] NEUROLOGIC EXAMINATION: Mental Status: Awake and alert, fully oriented, with normal attention, concentration and memory, and fluent, appropriate speech. Cranial Nerves: I: Olfactory not tested. II: Visual acuity normal, no visual field deficit noted with confrontation. III,IV: Normal pupillary reflexes & intact extraocular movements without nystagmus. V,: Intact symmetrical facial sensation. VII: Intact symmetrical facial motor movement VIII: Hearing intact. IX,X: Intact gag, swallow, & normal voice. XI: Sternocleidomastoid, trapezius function intact. XII: Tongue midline with normal movements. Special Tests: L'hermitte's Sign: Absent Spurling'Sign: Absent Bilateral Cubital percussion test: Absent Bilateral Bran-Tinel sign - Carpal region: Absent Bilateral Straight Leg Raising: Absent Bilateral Motor Exam (0-5/5, N/T) STRENGTH UPPER EXTREMITY Shoulder Abd (Not part of BROOK Motor score): RIGHT 4 LEFT 4 Elbow Flexors: RIGHT 4 LEFT 4 Elbow Extensor: RIGHT 4 LEFT 4 Wrrist Dorsiflexors: RIGHT 4 LEFT 4 Finger Abductor: RIGHT 4 LEFT 4 [employer] Teacher: RIGHT 4 LEFT 4 LOWER EXTREMITY Hip Flexor (Not part of BROOK Motor Score): RIGHT 4 LEFT 4 Knee Flexor: RIGHT 4 LEFT 4 Knee Extensor: RIGHT 4 LEFT 4 Ankle Dorsiflexion: RIGHT 4 LEFT 4 Ankle Plantarflexion: RIGHT 4 LEFT 4 EHL: RIGHT 4 LEFT 4 FHL: RIGHT 4 LEFT 4 Patient has some generalized weakness but he has no focal deficits REFLEXES Biecp: RIGHT [2] LEFT [2] Tricep: RIGHT [2] LEFT [2] Brachioradialis: RIGHT [2] LEFT [2] Patellar: RIGHT [2] LEFT [2] Achilles: RIGHT [2] LEFT [2] Pathological Reflexes Vilchis's: RIGHT [Absent] LEFT [Absent] Babinski: RIGHT [Absent] LEFT [Absent] Clonus: RIGHT [None] LEFT [None] SENSORY Joint Position: [Intact bilaterally] Vibration [Intact bilaterally] Pain and LT sense [Intact C5-T1 and L2-S1] Dermatomal deficit [None] Gait and Functional Evaluation: Ambulatory aids: [place] He is unable to single leg stance or walk in a straight line but he was able to get up from a bedside commode and go to the chair next door without much help Hand and finger dexterity intact bilaterally[]. Disdiadochokinesis examination negative[] bilaterally. Results IMages reviewed. CT of c spine shows multilevel degenerative processes with reversal of the normal cervical lordosis. There is ankylosis of the C3-4 and C5- 6 areas. There is air within the disc space of C4-5 with Grade I anterior listhesis in this area. There is what appears to be an acute C6 SP fracture. C0-1 and C1-2 joints appear stable at this time. No dens fracture. Multilevel stenosis noted due to facet hypertrophy and severe disc degeneration. Pt ap pears to have a complex medical history with multiple different comorbid conditions. - Labs Labs: Abnormal Lab Results - Last 24 Hours (Table) 03/14/21 03/14/21 03/14/21 Range/Units 07:25 07:25 07:25 WBC (3.8-10.6) k/uL RBC (4.30-5.90) m/uL Hgb (13.0-17.5) gm/dL Neutrophils # (1.3-7.7) k/uL Lymphocytes # (1.0-4.8) k/uL PT 16.2 H (9.0-12.0) sec INR 1.6 H (<1.2) BUN 27 H (9-20) mg/dL Cholesterol 233 H (<200) mg/dL LDL Cholesterol, Calc 139 H (0-99) mg/dL HDL Cholesterol 67 H (40-60) mg/dL 03/15/21 Range/Units 07:33 WBC 12.5 H (3.8-10.6) k/uL RBC 4.20 L (4.30-5.90) m/uL Hgb 12.9 L (13.0-17.5) gm/dL Neutrophils # 10.7 H (1.3-7.7) k/uL Lymphocytes # 0.7 L (1.0-4.8) k/uL PT (9.0-12.0) sec INR (<1.2) BUN (9-20) mg/dL Cholesterol (<200) mg/dL LDL Cholesterol, Calc (0-99) mg/dL HDL Cholesterol (40-60) mg/dL H & H 03/13/21 03/14/21 03/15/21 Range/Units 11:46 07:25 07:33 Hgb 12.5 L 12.9 L 12.9 L (13.0-17.5) gm/dL Hct 37.9 L 39.7 40.1 (39.0-53.0) % Coagulation 03/13/21 03/14/21 Range/Units 11:46 07:25 INR 1.5 H 1.6 H (<1.2) Result Diagrams: 03/15/21 07:33 03/14/21 07:25 Assessment and Plan Assessment: 80 yo male complex medical history with ffs after syncopal like episode 1. C6 SP fracture, stable. No other fractures noted. No neck pain with ROM 2. Camptocormia, Chronic 3. Cervical spondylosis Plan: -Appreciate consult - C collar cleared, soft collar for comfort if wanted. -Pain control PRn - No other areas of interest at this time. Continue serial orthopedic secondary exams -No acute orthopedic or spinal intervention warrented at this time. Orthopedic supportive care. PT/OT, Ambulate. Thank you for this consultation. Time with Patient: Greater than 30
[2021-03-15] MEDS: predniSONE 10 MG TAB PO SCH (10:42)
[2021-03-15] MEDS: AZITHROMYCIN 500 MG in SODIUM CHLORIDE 0.9% 250 ML IVPB SCH (10:42)
[2021-03-15] MEDS: ASPIRIN 81 MG PO SCH (10:42)
[2021-03-15] MEDS: amLODIPine 5 MG TAB PO SCH ×2 (10:43→19:41)
[2021-03-15] MEDS: CHOLECALCIFEROL 25 MCG (1000 IU) TABLET PO SCH (10:43)
[2021-03-15] MEDS: ASCORBIC ACID 500 MG TAB PO SCH ×2 (10:43→19:41)
--- NOTE | 2021-03-15 11:09 | P.PN ---
Subjective Progress Note Date: 03/15/21 Principal diagnosis: Carotid stenosis The patient is seen and examined sitting up in a bedside chair. He denies any acute changes through the night. Denies any focal deficits. Objective - Vital Signs Vital signs: Vital Signs Temp 98.1 F 03/15/21 04:00 Pulse 65 03/15/21 04:00 Resp 16 03/15/21 04:00 BP 135/65 03/15/21 04:00 Pulse Ox 95 03/15/21 04:00 Intake & Output 03/14/21 03/15/21 03/15/21 18:59 06:59 18:59 Intake Total 740 Output Total 300 Balance 740 -300 Weight 104 kg Intake: Oral 740 Output: Urine 300 Other: Voiding Method Urinal Urinal # Voids 2 1 # Bowel Movements 1 - Exam General appearance: The patient is alert, oriented, appears in no acute distress. HET: Head is normocephalic and atraumatic. No audible carotid bruit Neck: Supple without lymphadenopathy. Trachea midline. Heart: S1 S2. Regular rate and rhythm. Lungs: No crackles or wheezes are heard. Abdomen: Soft, nontender, nondistended. Extremities: Normal skin color and turgor. Bruising noted on his left clavicle and under chin. Palpable bilateral radial pulses.. Neurological: No focal deficits. Strength and sensation are grossly intact. - Labs CBC & Chem 7: 03/15/21 07:33 03/15/21 07:33 Labs: Abnormal Lab Results - Last 24 Hours (Table) 03/14/21 03/15/21 03/15/21 Range/Units 07:25 07:33 07:33 WBC 12.5 H (3.8-10.6) k/uL RBC 4.20 L (4.30-5.90) m/uL Hgb 12.9 L (13.0-17.5) gm/dL Neutrophils # 10.7 H (1.3-7.7) k/uL Lymphocytes # 0.7 L (1.0-4.8) k/uL PT 20.2 H (9.0-12.0) sec INR 2.1 H (<1.2) Sodium (137-145) mmol/L BUN (9-20) mg/dL Glucose (74-99) mg/dL Cholesterol 233 H (<200) mg/dL LDL Cholesterol, Calc 139 H (0-99) mg/dL HDL Cholesterol 67 H (40-60) mg/dL 03/15/21 Range/Units 07:33 WBC (3.8-10.6) k/uL RBC (4.30-5.90) m/uL Hgb (13.0-17.5) gm/dL Neutrophils # (1.3-7.7) k/uL Lymphocytes # (1.0-4.8) k/uL PT (9.0-12.0) sec INR (<1.2) Sodium 136 L (137-145) mmol/L BUN 24 H (9-20) mg/dL Glucose 104 H (74-99) mg/dL Cholesterol (<200) mg/dL LDL Cholesterol, Calc (0-99) mg/dL HDL Cholesterol (40-60) mg/dL Assessment and Plan Assessment: 1. 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 Pneumonia Plan: 1. Continue medical management per primary medicine team 2. Obtain disc of CTA head and neck 3. Discussed with patient need for outpatient follow-up with vascular surgery for surgical intervention on left carotid artery Thank you for this consultation, we will sign off at this time The impression and plan of care has been dictated as directed. Dr. Cook I performed a history and examination of this patient, discussed the same with the dictator. I agree with the dictator's note ,documented as a scribe. Any additional findings or plans will be noted.
--- NOTE | 2021-03-15 11:12 | P.CNPUL ---
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 about 21 years ago, he shouldn't has long-standing history of smoking and nicotine use smokes 2 packs a day lately have cut down, and was admitted into hospital with recurrent syncopal episode, workup and evaluation noted to have significant restenosis over 80% and left internal carotid, it appears that patient very well have a aspiration episode developed right lower lobe pneumonia, patient also has history of the shortness of breath off and on suggestive of COPD, also have a history of snoring likely a sleep disorder breathing and sleep apnea as well, currently patient is being treated with broad-spectrum antibiotics, anticoagulation with Coumadin, Review of Systems All systems: negative Past Medical History Past Medical History: Cancer, Hypertension, Osteoarthritis (OA), Prostate Disorder Additional Past Medical History / Comment(s): ARRYTHYTHMIA,AORTIC VALVE REP LACEMENT,PROSTATE CANCER, History of Any Multi-Drug Resistant Organisms: None Reported Past Surgical History: Tonsillectomy Additional Past Surgical History / Comment(s): VASCECTOMY,AORTIC VALVE REPLACEMENT, CAROTID ARTERY RIGHT SIDE Past Anesthesia/Blood Transfusion Reactions: No Reported Reaction Past Psychological History: Depression Smoking Status: Former smoker Past Alcohol Use History: None Reported Additional Past Alcohol Use History / Comment(s): STARTED SMOKING AT AGE 13 QUIT 1998 SMOKED1-2PPD Past Drug Use History: None Reported - Past Family History Mother Family Medical History: Cancer Medications and Allergies Home Medications Medication Instructions Recorded Confirmed Type Metoprolol Tartrate [Lopressor] 50 mg PO BID 11/18/16 03/13/21 History Amiodarone [Cordarone] 200 mg PO DAILY 05/14/19 03/13/21 History HYDROcodone/APAP 5-325MG [[place] 1 tab PO BID PRN 05/14/19 03/13/21 History 5-325] amLODIPine [Norvasc] 5 mg PO BID 05/14/19 03/13/21 History Ascorbic Acid [Vitamin C] 500 mg PO BID #20 tab 03/05/21 03/13/21 Rx Cefuroxime Axetil [Ceftin] 500 mg PO BID 4 Days #8 tab 03/05/21 03/13/21 Rx Cholecalciferol [Vitamin D3 (25 50 mcg PO DAILY #20 tablet 03/05/21 03/13/21 Rx Mcg = 1000 Iu)] Warfarin [Coumadin] 2.5 mg PO DIRECTED 03/13/21 03/13/21 History Warfarin [Coumadin] 5 mg PO DIRECTED 03/13/21 03/13/21 History predniSONE See Taper PO DAILY 03/13/21 03/13/21 History Allergies Allergy/AdvReac Type Severity Reaction Status Date / Time dopamine Allergy "WAS TOLD Verified 03/13/21 12:36 NOT TO HAVE RX AGAIN,VERY ILL STATES ALMOST " Physical Exam Vitals: Vital Signs Temp Pulse Resp BP Pulse Ox 03/15/21 10:53 78 18 125/63 96 03/15/21 04:00 98.1 F 65 16 135/65 95 03/14/21 23:33 71 17 149/71 94 L 03/14/21 20:00 97.9 F 75 17 137/63 96 03/14/21 16:00 97.7 F 71 16 131/55 95 03/14/21 14:00 63 16 03/14/21 12:45 98.3 F 63 16 136/56 96 Intake and Output 03/14/21 03/15/21 03/15/21 22:59 06:59 14:59 Intake Total 240 Output Total 300 Balance 240 -300 Intake: Oral 240 Output: Urine 300 Other: Voiding Method Urinal # Voids 2 1 # Bowel Movements 1 Weight 104 kg - Constitutional General appearance: average body habitus, cooperative, disheveled - EENT Eyes: PERRLA Ears: bilateral: normal - Neck Carotids: bilateral: upstroke normal Thyroid: bilateral: normal size - Respiratory Respiratory: bilateral: diminished - Cardiovascular Rhythm: irregularly irregular Heart sounds: normal: S1, S2 - Gastrointestinal General gastrointestinal: normal bowel sounds, soft - Integumentary Integumentary: normal turgor - Neurologic Neurologic: CNII-XII intact - Musculoskeletal Musculoskeletal: gait normal, generalized weakness, strength equal bilaterally - Psychiatric Psychiatric: A&O x's 3, appropriate affect, intact judgment & insight Results - Laboratory Findings CBC and BMP: 03/15/21 07:33 03/15/21 07:33 PT/INR, D-dimer PT 20.2 sec (9.0-12.0) H 03/15/21 07:33 INR 2.1 (<1.2) H 03/15/21 07:33 Abnormal lab findings: Abnormal Labs 03/13/21 03/13/21 03/13/21 11:46 11:46 11:46 WBC 15.2 H RBC 4.02 L Hgb 12.5 L Hct 37.9 L Neutrophils # 14.3 H Lymphocytes # 0.4 L PT 14.7 H INR 1.5 H Sodium Potassium BUN Glucose Cholesterol LDL Cholesterol, Calc HDL Cholesterol Urine Protein Trace H 03/13/21 03/14/21 03/14/21 11:46 07:25 07:25 WBC 13.2 H RBC 4.20 L Hgb 12.9 L Hct Neutrophils # 11.5 H Lymphocytes # 0.7 L PT INR Sodium Potassium 5.3 H BUN 32 H 27 H Glucose 110 H Cholesterol LDL Cholesterol, Calc HDL Cholesterol Urine Protein 03/14/21 03/14/21 03/15/21 07:25 07:25 07:33 WBC RBC Hgb Hct Neutrophils # Lymphocytes # PT 16.2 H 20.2 H INR 1.6 H 2.1 H Sodium Potassium BUN Glucose Cholesterol 233 H LDL Cholesterol, Calc 139 H HDL Cholesterol 67 H Urine Protein 03/15/21 03/15/21 07:33 07:33 WBC 12.5 H RBC 4.20 L Hgb 12.9 L Hct Neutrophils # 10.7 H Lymphocytes # 0.7 L PT INR Sodium 136 L Potassium BUN 24 H Glucose 104 H Cholesterol LDL Cholesterol, Calc HDL Cholesterol Urine Protein - Diagnostic Findings Chest x-ray: report reviewed, image reviewed Assessment and Plan Assessment: Right lower lobe pneumonia Extensive history of smoking and nicotine use likely has severe COPD to be evaluated further outpatient basis Sleep disorder breathing and sleep apnea patient needs to be evaluated outpatient basis for sleep study Left internal carotid artery stenosis with symptoms History of aortic valve replacement Plan: Continue antibiotics Deep breathing sense incentive spirometry Follow clinical course closely Repeat chest x-ray tomorrow Further plan of care as per clinical response of patient and likely as outpatient setting Time with Patient: Greater than 30
--- NOTE | 2021-03-15 11:51 | EEG ---
ELECTROENCEPHALOGRAM REPORT DATE OF SERVICE: 03/15/2021. PREAMBLE: This is an 80-year-old male who had a syncopal spell while walking around in his kitchen and then he felt lightheaded and dizzy and passed out for about 1-5 seconds and woke up in the ED. No incontinence or tongue biting. The study is performed to evaluate for any epileptiform activity. EEG FINDINGS: This is a 21 channel routine EEG recording in a patient utilizing 10/20 international system with referential and bipolar montages. Background consists of well developed, well regulated, moderate voltage activity in mixed frequencies of 8-9 hertz alpha with some moderate amplitude theta range activity in the 4-5 hertz. Background seems to be reactive to eye opening and closing. Background also responds to some flash frequencies with photic stimulation. Mild drowsiness was seen but deeper stages of sleep was not attained. No focal or generalized epileptiform activity was seen. EKG channel showed no significant arrhythmia. IMPRESSION: This is a mildly abnormal EEG due to background slowing of mild degree. This is suggestive of generalized cerebral dysfunction that can be seen with encephalopathy or medication effect. No epileptiform activity was seen. MMODL / IJN: [id number] /
--- NOTE | 2021-03-15 13:13 | P.PN ---
Subjective This is a 80-year-old male with a past medical history significant for paroxysmal atrial fibrillation, hypertension, and mechanical aortic valve rep lacement 1998. Patient follows in the office with Dr. Prasad. We have been asked to see the patient in consultation for syncope. Patient was recently seen / secondary to syncopal episode while he was out walking towards some cats. He was worked up with echocardiogram which showed concern of moderate to severe mechanical aortic valve regurgitation with recommendations for possible ROBBY if clinically indicated. This has been monitored in the office. Patient however has noticed increased episodes of falls and lightheadedness. He had felt fairly well since being discharged however had been walking in the kitchen and suddenly he came lightheaded and fell. It appears he lost consciousness. He had difficulty getting up from the ground and therefore called EMS. EMS noted the patient EKG showing sinus bradycardia with heart rates in the 30s. It does appear there was a transition of somewhat slower heart rates for the first half of the EKG and then sinus bradycardia for the second half with some irregularity. There is no clear A-V dissociation and does not appear to be any P waves buried, no clear-cut evidence of high degree AV block. He has had workup with carotid ultrasound showing concern of left internal carotid artery stenosis. EKG shows sinus rhythm with left bundle branch block, first-degree AV block. He denies any shortness breath or chest pain. He admits to some back pain where he fell. He does admit to some episodes of feeling lightheaded however predominantly has been doing fairly well at home over the past week and a half. 03/15/2021 Patient is seen and examined sitting up in recliner no acute distress. He denies any symptoms of dizziness or syncope since arriving at the hospital. He has no symptoms of chest discomfort or shortness of breath. Telemetry tracings have been unremarkable with no evidence of reshma arrhythmia. Blood pressure 135/65 heart rate 65 afebrile maintaining oxygen saturation on room air. Laboratory data reviewed, WBC 12.5, hemoglobin 12.9, platelets 205, INR 2.1, sodium 136, potassium 4.6, creatinine 0.87 and TSH 2.5. Currently maintained on amlodipine 5 mg twice a day, aspirin 81 mg daily, atorvastatin 80 mg daily and C oumadin. CT angiography reveals a short segmental occlusion with critical stenosis of proximal left ICA, suspect severe right proximal ICA as well. GENERAL: Well-appearing, well-nourished and in no acute distress. NECK: Supple without JVD or thyromegaly. Obese. LUNGS: Breath sounds clear to auscultation bilaterally. Respiration equal and unlabored. No wheezes, rales or rhonchi. HEART: Regular rate and rhythm with soft mechanical click at the base, no rubs or gallops. S1 and S2 heard. EXTREMITIES: Normal range of motion, no edema. No clubbing or cyanosis. Peripheral pulses intact. ASSESSMENT Syncope, recurrent Mechanical aortic valve replacement, 1998 maintained on Coumadin with aortic insufficiency Subtherapeutic INR on admission Pneumonia Paroxysmal atrial fibrillation Peripheral vascular disease status post right carotid endarterectomy Hypertension PLAN Vascular surgery has seen and evaluated the patient and recommend carotid endarterectomy versus TCAR worked up as an outpatient. Consider outpatient event monitoring if no significant arrhythmia noted while inpatient. Ongoing telemetry monitoring. Continue coumadin for target INR 2.5-3.5 for mechanical aortic valve Further recommendations to follow based on clinical course. Nurse Practitioner note has been reviewed, I agree with a documented findings and plan of care. Patient was seen and examined. Objective - Vital Signs Vital signs: Vital Signs Temp 98.1 F 03/15/21 04:00 Pulse 65 03/15/21 04:00 Resp 16 03/15/21 04:00 BP 135/65 03/15/21 04:00 Pulse Ox 95 03/15/21 04:00 Intake & Output 03/14/21 03/15/21 03/15/21 18:59 06:59 18:59 Intake Total 740 Output Total 300 Balance 740 -300 Weight 104 kg Intake: Oral 740 Output: Urine 300 Other: Voiding Method Urinal Urinal # Voids 2 1 # Bowel Movements 1 - Labs CBC & Chem 7: 03/15/21 07:33 03/15/21 07:33 Labs: Abnormal Lab Results - Last 24 Hours (Table) 03/14/21 03/15/21 03/15/21 Range/Units 07:25 07:33 07:33 WBC 12.5 H (3.8-10.6) k/uL RBC 4.20 L (4.30-5.90) m/uL Hgb 12.9 L (13.0-17.5) gm/dL Neutrophils # 10.7 H (1.3-7.7) k/uL Lymphocytes # 0.7 L (1.0-4.8) k/uL PT 20.2 H (9.0-12.0) sec INR 2.1 H (<1.2) Sodium (137-145) mmol/L BUN (9-20) mg/dL Glucose (74-99) mg/dL Cholesterol 233 H (<200) mg/dL LDL Cholesterol, Calc 139 H (0-99) mg/dL HDL Cholesterol 67 H (40-60) mg/dL 03/15/21 Range/Units 07:33 WBC (3.8-10.6) k/uL RBC (4.30-5.90) m/uL Hgb (13.0-17.5) gm/dL Neutrophils # (1.3-7.7) k/uL Lymphocytes # (1.0-4.8) k/uL PT (9.0-12.0) sec INR (<1.2) Sodium 136 L (137-145) mmol/L BUN 24 H (9-20) mg/dL Glucose 104 H (74-99) mg/dL Cholesterol (<200) mg/dL LDL Cholesterol, Calc (0-99) mg/dL HDL Cholesterol (40-60) mg/dL
[2021-03-15 15:42] LABS: INR 2.3 (<1.2); Prothrombin Time 22.6 sec (9.0-12.0)
[2021-03-15] MEDS: HYDROcodone/APAP 5-325MG 1 EACH TAB PO PRN ×2 (15:44→23:37)
--- NOTE | 2021-03-15 16:22 | PN ---
PROGRESS NOTE DATE OF SERVICE: 03/15/2021 This 80-year-old gentleman who was admitted with syncope had possibly cardiac arrhythmia. The patient was also suspected of pneumonia at this time. The patient was seen by Pulmonology. Patient also has significant carotid stenosis as well. The patient is on antibiotics for right lower lobe pneumonia and Cardiology seen the patient and recommended outpatient monitoring at this time. No chest pain. No palpitations. No fever. PAST MEDICAL HISTORY: Reviewed. REVIEW OF SYSTEMS: CARDIOVASCULAR SYSTEM: No angina. RESPIRATORY SYSTEM: As mentioned earlier. GI: As mentioned earlier. : No dysuria. NERVOUS SYSTEM: No numbness or weakness. CURRENT MEDICATIONS: Current medications are reviewed and include Tylenol, [place], Xanax, Norvasc, vitamin C, aspirin, Lipitor. Doses are reviewed. PHYSICAL EXAMINATION: Patient is alert and oriented x3. Pulse 78, blood pressure 125/63, respiration 18, temperature 98.1, pulse ox 96% on room air. HEENT: Conjunctivae normal. NECK: No jugular venous distention. CARDIOVASCULAR: S1, S2 muffled. RESPIRATORY: Breath sounds diminished at the bases. A few scattered rhonchi and crackles. ABDOMEN: Soft, nontender. LEGS: No edema, no swelling. NERVOUS SYSTEM: No focal deficits. LABS: WBC 12.5, hemoglobin 12.9, sodium 136, potassium 4.6. The cholesterol is 233. ASSESSMENT: 1. Syncope for evaluation, possible cardiac arrhythmia. 2. Acute transient ischemic attack. 3. Right lower lobe pneumonia, possibly community-acquired. 4. Left carotid stenosis with suspected severe right proximal ICA stenosis. 5. Increased WBC. 6. Anemia, normocytic. 7. Coumadin monitoring. 8. Hyperkalemia. 9. Hypertension. 10.History of degenerative joint disease. 11.History of aortic valve replacement. 12.History of prostate cancer. 13.History of depression. 14.Remote history of nicotine dependence. 15.Obesity with body mass index of 34.6. 16.Left bundle branch block on EKG. 17.Hyponatremia. RECOMMENDATIONS AND DISCUSSION: Recommend continue current medications, continue symptomatic treatment. Otherwise repeat labs. Continue empiric antibiotics. Monitor Coumadin closely. Repeat labs. Closely follow with multiple consultants. Vascular Surgery consultation awaited. Guarded prognosis. Further recommendations to follow. MMODL / IJN: [id number] /
--- NOTE | 2021-03-15 16:36 | P.PN ---
Subjective Progress Note Date: 03/15/21 Patient was seen for a follow-up. Patient seen by Dr. Sylvester Campos yesterday. Please refer to his note for details. Patient came to the hospital for 3 episodes of syncope. The first one occurred when he slipped and fell backwards. He had to call the ambulance. The other 2 were more syncope, and occurred at home. With one of them he was at the kitchen table making coffee, went to the sink and then became dizzy lightheaded and passed out. He was out for only 5 seconds. He was standing all these 3 times. Patient denies any numbness tingling focal weakness, problem with the vision, any slurred speech or strokelike symptoms. Telemetry monitoring showing sinus rhythm, with sinus bradycardia. Objective - Vital Signs Vital signs: Vital Signs Temp 98.1 F 03/15/21 04:00 Pulse 78 03/15/21 10:53 Resp 18 03/15/21 10:53 BP 125/63 03/15/21 10:53 Pulse Ox 96 03/15/21 10:53 Intake & Output 03/14/21 03/15/21 03/15/21 18:59 06:59 18:59 Intake Total 740 Output Total 300 Balance 740 -300 Weight 104 kg Intake: Oral 740 Output: Urine 300 Other: Voiding Method Urinal Urinal # Voids 2 1 # Bowel Movements 1 - Exam Patient is an elderly male, very pleasant, in no acute distress. Patient is alert awake oriented to time place and person. He knows that it is February 2021 and that he is in [place]. Speech and language functions are normal. Attention, concentration and fund of knowledge is adequate. On cranial examination, pupils are round and reacting to light, visual minor are full on confrontation, with no neglect, extraocular muscles are intact with no nystagmus. Face is symmetric, tongue protrudes to the midline. Palatal elevation and sensation normal, hearing and shoulder shrug normal, facial sensation normal. Shoulder shrug normal. On muscle strength testing, there is no pronator drift and the strength is normal in arms and legs distally and proximally. Patient has significant stiffness of the right shoulder from arthritis therefore has some pronation but is chronic. He has arthritis. Deep tendon reflexes are symmetric. Sensory to touch is equal with no neglect. Cerebellar function showed no ataxia for [id number] testing. No dysdiadochokinesia. Tone and bulk of muscles normal. Gait deferred. On general examination, there has bilateral carotid bruit, no murmur, S1-S2 audible. Abdomen is soft nontender. Chest is clear. Patient has mild to moderate peripheral edema bilaterally. Patient has some chronic hyperpigmented skin changes. - Labs CBC & Chem 7: 03/15/21 07:33 03/15/21 07:33 Labs: Abnormal Lab Results - Last 24 Hours (Table) 03/15/21 03/15/21 03/15/21 Range/Units 07:33 07:33 07:33 WBC 12.5 H (3.8-10.6) k/uL RBC 4.20 L (4.30-5.90) m/uL Hgb 12.9 L (13.0-17.5) gm/dL Neutrophils # 10.7 H (1.3-7.7) k/uL Lymphocytes # 0.7 L (1.0-4.8) k/uL PT 20.2 H (9.0-12.0) sec INR 2.1 H (<1.2) Sodium 136 L (137-145) mmol/L BUN 24 H (9-20) mg/dL Glucose 104 H (74-99) mg/dL Assessment and Plan Assessment: * Syncopal spells, likely vasovagal, or orthostatic. No definitive clinical evidence of TIA, with lack of any focal symptoms. * Bilateral ICA stenosis, very severe on the left, severe on the right. * C6 spinous process fracture, orthopedic surgery on board. No surgical intervention needed. * History of right CEA 25 years ago. * History of aortic valve replacement. * Right lower lobe pneumonia, history of COPD * Sleep-disordered breathing. Plan: * Patient had an EEG performed today, which was mildly abnormal due to b ackground slowing, suggestive of mild encephalopathy. No epileptiform activity was seen. * Patient has been seen by vascular surgery, and have recommended CEA on the left side, as outpatient. * Patient is on Coumadin, INR therapeutic 2.1. Continue aspirin 81 mg. * Continue statins. * CTA head and neck reveals short segment occlusion or critical stenosis proximal left ICA. Suspect severe right proximal ICA stenosis. No intracranial aneurysm. * Lipid panel with cholesterol 233, LDL 139, HDL 67 and triglycerides 137. Continue high-dose Lipitor 80 mg. * Check hemoglobin A1c.
[2021-03-15] MEDS ORDERED: WARFARIN 5 MG TAB PO ONE (18:00)
[2021-03-15] MEDS: ATORVASTATIN 80 MG TAB PO SCH (19:41)
[2021-03-16] MEDS: PANTOPRAZOLE 40 MG TABLET PO SCH (06:17)
--- NOTE | 2021-03-16 08:33 | XR ---
EXAMINATION TYPE: XR chest 1V portable DATE OF EXAM: 03/16/2021 COMPARISON: Chest x-ray 03/13/2021 HISTORY: Right lower lobe pneumonia TECHNIQUE: Single frontal view of the chest is obtained. FINDINGS: Interstitium is mildly increased. There is no evident pneumothorax or pleural effusion. Pa tient is post median sternotomy, cardiac mediastinal silhouette is stable, heart is enlarged. There a re overlying leads. Central vascularity appears improved. IMPRESSION: Suspect some improvement in patient's volume status, aeration within the lungs, stable c ardiomegaly.
[2021-03-16] MEDS: HYDROcodone/APAP 5-325MG 1 EACH TAB PO PRN (08:40)
[2021-03-16] MEDS: amLODIPine 5 MG TAB PO SCH ×2 (08:41→20:17)
[2021-03-16] MEDS: ASCORBIC ACID 500 MG TAB PO SCH ×2 (08:41→20:17)
[2021-03-16] MEDS: ASPIRIN 81 MG PO SCH (08:41)
[2021-03-16] MEDS: CHOLECALCIFEROL 25 MCG (1000 IU) TABLET PO SCH (08:41)
[2021-03-16] MEDS: predniSONE 10 MG TAB PO SCH (08:41)
[2021-03-16 08:44] LABS: Basophils # (A) 0.1 k/uL (0-0.2); Basophils % (A) 1 %; Eosinophils # (A) 0.2 k/uL (0-0.7); Eosinophils % (A) 2 %; HCT 42.9 % (39.0-53.0); HGB 13.1 gm/dL (13.0-17.5); Hypochromasia Slight; Lymphocytes # (A) 0.7 k/uL (1.0-4.8); Lymphocytes % (A) 5 %; MCH 29.4 pg (25.0-35.0); MCHC 30.5 g/dL (31.0-37.0); MCV 96.4 fL (80.0-100.0); Mean Platelet Volume 8.2; Monocytes # (A) 0.6 k/uL (0-1.0); Monocytes % (A) 5 %; Neutrophils # (A) 11.3 k/uL (1.3-7.7); Neutrophils % (A) 87 %; Platelet Count 200 k/uL (150-450); RBC 4.45 m/uL (4.30-5.90); RDW 14.7 % (11.5-15.5)
[2021-03-16 08:49] LABS: INR 2.8 (<1.2); Prothrombin Time 27.2 sec (9.0-12.0)
[2021-03-16] MEDS ORDERED: AZITHROMYCIN 500 MG TAB PO SCH (09:00)
[2021-03-16 09:27] LABS: Potassium 4.8 mmol/L (3.5-5.1)
--- NOTE | 2021-03-16 10:35 | P.PN ---
Subjective This is a 80-year-old male with a past medical history significant for paroxysmal atrial fibrillation, hypertension, and mechanical aortic valve rep lacement 1998. Patient follows in the office with Dr. Prasad. We have been asked to see the patient in consultation for syncope. Patient was recently seen / secondary to syncopal episode while he was out walking towards some cats. He was worked up with echocardiogram which showed concern of moderate to severe mechanical aortic valve regurgitation with recommendations for possible ROBBY if clinically indicated. This has been monitored in the office. Patient however has noticed increased episodes of falls and lightheadedness. He had felt fairly well since being discharged however had been walking in the kitchen and suddenly he came lightheaded and fell. It appears he lost consciousness. He had difficulty getting up from the ground and therefore called EMS. EMS noted the patient EKG showing sinus bradycardia with heart rates in the 30s. It does appear there was a transition of somewhat slower heart rates for the first half of the EKG and then sinus bradycardia for the second half with some irregularity. There is no clear A-V dissociation and does not appear to be any P waves buried, no clear-cut evidence of high degree AV block. He has had workup with carotid ultrasound showing concern of left internal carotid artery stenosis. EKG shows sinus rhythm with left bundle branch block, first-degree AV block. He denies any shortness breath or chest pain. He admits to some back pain where he fell. He does admit to some episodes of feeling lightheaded however predominantly has been doing fairly well at home over the past week and a half. 03/16/2021 Patient is seen and examined sitting up in recliner no acute distress. He denies symptoms of chest discomfort, shortness of breath, dizziness or palpitations. He states he has been using the commode without any dizziness. Telemetry tracings reveal sinus mechanism with one episode of atrial fibrillation last evening. Rates were controlled. Blood pressure 130/75 heart rate 88 afebrile maintaining oxygen saturation on room air. Laboratory data reviewed, WBC 13, hemoglobin 13.1, platelets 200, INR 2.8, sodium 137, potassium 4.8, creatinine 1.02. GENERAL: Well-appearing, well-nourished and in no acute distress. NECK: Supple without JVD or thyromegaly. Obese. LUNGS: Breath sounds clear to auscultation bilaterally. Respiration equal and unlabored. No wheezes, rales or rhonchi. HEART: Regular rate and rhythm with soft mechanical click at the base, no rubs or gallops. S1 and S2 heard. EXTREMITIES: Normal range of motion, no edema. No clubbing or cyanosis. Peripheral pulses intact. ASSESSMENT Syncope, recurrent Mechanical aortic valve replacement, 1998 maintained on Coumadin with aortic insufficiency Subtherapeutic INR on admission Pneumonia Paroxysmal atrial fibrillation Peripheral vascular disease status post right carotid endarterectomy Hypertension PLAN Stable on current medical regimen. No bradycardia noted. Pt states he is planning to go to rehab facility on discharge. Apply 30-day event monitor prior to discharge, report to Dr. Prasad. Discontinue amiodarone on discharge. Nurse Practitioner note has been reviewed, I agree with a documented findings and plan of care. Patient was seen and examined. Objective - Vital Signs Vital signs: Vital Signs Temp 98.1 F 03/16/21 00:00 Pulse 80 03/16/21 04:00 Resp 18 03/16/21 04:00 BP 130/75 03/16/21 04:00 Pulse Ox 95 03/16/21 04:00 Intake & Output 03/15/21 03/16/21 03/16/21 18:59 06:59 18:59 Intake Total 1080 480 Output Total 700 350 100 Balance 380 -350 380 Weight 104 kg 104.1 kg Intake: Oral 1080 480 Output: Urine 700 350 100 Other: Voiding Method Urinal # Voids 2 1 # Bowel Movements 1 1 - Labs CBC & Chem 7: 03/16/21 07:52 03/16/21 07:52 Labs: Abnormal Lab Results - Last 24 Hours (Table) 03/15/21 03/16/21 03/16/21 Range/Units 14:56 07:52 07:52 WBC 13.0 H (3.8-10.6) k/uL MCHC 30.5 L (31.0-37.0) g/dL Neutrophils # 11.3 H (1.3-7.7) k/uL Lymphocytes # 0.7 L (1.0-4.8) k/uL PT 22.6 H (9.0-12.0) sec INR 2.3 H (<1.2) BUN 30 H (9-20) mg/dL 03/16/21 Range/Units 07:52 WBC (3.8-10.6) k/uL MCHC (31.0-37.0) g/dL Neutrophils # (1.3-7.7) k/uL Lymphocytes # (1.0-4.8) k/uL PT 27.2 H (9.0-12.0) sec INR 2.8 H (<1.2) BUN (9-20) mg/dL
--- NOTE | 2021-03-16 11:35 | P.PN ---
Subjective Progress Note Date: 03/16/21 Principal diagnosis: Right lower lobe pneumonia Extensive history of smoking and nicotine use likely has severe COPD to be evaluated further outpatient basis Sleep disorder breathing and sleep apnea patient needs to be evaluated outpatient basis for sleep study Left internal carotid artery stenosis with symptoms History of aortic valve replacement 03/16/2021, patient sitting upright in the chair breathing comfortably he is still of ongoing cough, patient remains on broad-spectrum antibiotics being eval for left internal carotid artery stenosis, patient is being evaluated for surgical intervention, respiratory status is relatively more stable, patient likely will go to rehab, however feel that patient should get a sleep study and the evaluation for COPD prior to surgery as well chest x-ray performed today shows improvement in infiltrates suggestive of resolving pneumonia This is a 80-year-old male came into the hospital with recurrent syncopal episode, admitted chest x-ray revealed infiltrate consult is requested for pneumonia, patient has a prior history of atrial fibrillation also has history of the hypertension 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 about 21 years ago, he shouldn't has long-standing history of smoking and nicotine use smokes 2 packs a day lately have cut down, and was admitted into hospital with recurrent syncopal episode, workup and evaluation noted to have significant restenosis over 80% and left internal carotid, it appears that patient very well have a aspiration episode developed right lower lobe pneumonia, patient also has history of the shortness of breath off and on suggestive of COPD, also have a history of snoring likely a sleep disorder breathing and sleep apnea as well, currently patient is being treated with broad-spectrum antibiotics, anticoagulation with Coumadin, Objective - Vital Signs Vital signs: Vital Signs Temp 98.1 F 03/16/21 00:00 Pulse 75 03/16/21 08:00 Resp 16 03/16/21 08:00 BP 114/57 03/16/21 08:00 Pulse Ox 96 03/16/21 08:00 Intake & Output 03/15/21 03/16/21 03/16/21 18:59 06:59 18:59 Intake Total 1080 480 Output Total 700 350 100 Balance 380 -350 380 Weight 104 kg 104.1 kg Intake: Oral 1080 480 Output: Urine 700 350 100 Other: Voiding Method Urinal Urinal # Voids 2 1 # Bowel Movements 1 1 - Exam - Constitutional General appearance: average body habitus, cooperative, disheveled - EENT Eyes: PERRLA Ears: bilateral: normal - Neck Carotids: bilateral: upstroke normal Thyroid: bilateral: normal size - Respiratory Respiratory: bilateral: diminished - Cardiovascular Rhythm: irregularly irregular Heart sounds: normal: S1, S2 - Gastrointestinal General gastrointestinal: normal bowel sounds, soft - Integumentary Integumentary: normal turgor - Neurologic Neurologic: CNII-XII intact - Musculoskeletal Musculoskeletal: gait normal, generalized weakness, strength equal bilaterally - Psychiatric Psychiatric: A&O x's 3, appropriate affect, intact judgment & insight - Labs CBC & Chem 7: 03/16/21 07:52 03/16/21 07:52 Labs: Abnormal Lab Results - Last 24 Hours (Table) 03/15/21 03/16/21 03/16/21 Range/Units 14:56 07:52 07:52 WBC 13.0 H (3.8-10.6) k/uL MCHC 30.5 L (31.0-37.0) g/dL Neutrophils # 11.3 H (1.3-7.7) k/uL Lymphocytes # 0.7 L (1.0-4.8) k/uL PT 22.6 H (9.0-12.0) sec INR 2.3 H (<1.2) BUN 30 H (9-20) mg/dL 03/16/21 Range/Units 07:52 WBC (3.8-10.6) k/uL MCHC (31.0-37.0) g/dL Neutrophils # (1.3-7.7) k/uL Lymphocytes # (1.0-4.8) k/uL PT 27.2 H (9.0-12.0) sec INR 2.8 H (<1.2) BUN (9-20) mg/dL Assessment and Plan Assessment: Right lower lobe pneumonia Extensive history of smoking and nicotine use likely has severe COPD to be evaluated further outpatient basis Sleep disorder breathing and sleep apnea patient needs to be evaluated outpatient basis for sleep study Left internal carotid artery stenosis with symptoms History of aortic valve replacement Plan: Continue antibiotics Deep breathing sense incentive spirometry Follow clinical course closely Repeat chest x-ray reviewed improvement in aviation presents is still of resolving pneumonia Further plan of care as per clinical response of patient and likely as outpatient setting Time with Patient: Greater than 30
--- NOTE | 2021-03-16 13:44 | P.PN ---
Subjective Progress Note Date: 03/16/21 03/14/2021 patient was seen for a follow-up. Patient denies any new focal symptoms. Denies any headache, problem with the vision, hoarseness, sore throat. Denies any numbness tingling focal weakness, slurred speech or facial droop. No further syncopal spells. 03/15/2021 Patient was seen for a follow-up. Patient seen by Dr. Sylvester Campos yesterday. Please refer to his note for details. Patient came to the hospital for 3 episodes of syncope. The first one occurred when he slipped and fell backwards. He had to call the ambulance. The other 2 were more syncope, and occurred at home. With one of them he was at the kitchen table making coffee, went to the sink and then became dizzy lightheaded and passed out. He was out for only 5 seconds. He was standing all these 3 times. Patient denies any numbness tingling focal weakness, problem with the vision, any slurred speech or strokelike symptoms. Telemetry monitoring showing sinus rhythm, with sinus bradycardia. Objective - Vital Signs Vital signs: Vital Signs Temp 98.1 F 03/16/21 00:00 Pulse 74 03/16/21 12:00 Resp 16 03/16/21 12:00 BP 142/60 03/16/21 12:00 Pulse Ox 97 03/16/21 12:00 Intake & Output 03/15/21 03/16/21 03/16/21 18:59 06:59 18:59 Intake Total 1080 480 Output Total 700 350 250 Balance 380 -350 230 Weight 104 kg 104.1 kg Intake: Oral 1080 480 Output: Urine 700 350 250 Other: Voiding Method Urinal Urinal # Voids 2 1 # Bowel Movements 1 1 - Exam Patient's mental status, speech and language functions are normal. Cranial nerves are normal. Muscle strength is normal. No ataxia. No pronator drift. Sensations equal. - Labs CBC & Chem 7: 03/16/21 07:52 03/16/21 07:52 Labs: Abnormal Lab Results - Last 24 Hours (Table) 03/15/21 03/16/21 03/16/21 Range/Units 14:56 07:52 07:52 WBC 13.0 H (3.8-10.6) k/uL MCHC 30.5 L (31.0-37.0) g/dL Neutrophils # 11.3 H (1.3-7.7) k/uL Lymphocytes # 0.7 L (1.0-4.8) k/uL PT 22.6 H (9.0-12.0) sec INR 2.3 H (<1.2) BUN 30 H (9-20) mg/dL 03/16/21 Range/Units 07:52 WBC (3.8-10.6) k/uL MCHC (31.0-37.0) g/dL Neutrophils # (1.3-7.7) k/uL Lymphocytes # (1.0-4.8) k/uL PT 27.2 H (9.0-12.0) sec INR 2.8 H (<1.2) BUN (9-20) mg/dL Assessment and Plan Assessment: * Syncopal spells, likely vasovagal, or orthostatic. No definitive clinical evidence of TIA, with lack of any focal symptoms. * Bilateral ICA stenosis, very severe on the left, severe on the right. * C6 spinous process fracture, orthopedic surgery on board. No surgical intervention needed. * History of right CEA 25 years ago. * History of aortic valve replacement. * Right lower lobe pneumonia, history of COPD * Sleep-disordered breathing. Plan: * EEG 03/15/2021 was mildly abnormal due to background slowing, suggestive of mild encephalopathy. No epileptiform activity was seen. * Patient has been seen by vascular surgery, and have recommended CEA on the left side, as outpatient. Patient will go to subacute rehab first before undergoing left CEA. * Patient is on Coumadin, INR therapeutic 2.8 as of today. Continue aspirin 81 mg. * CTA head and neck reveals short segment occlusion or critical stenosis proximal left ICA. Suspect severe right proximal ICA stenosis. No intracranial aneurysm. * Lipid panel with cholesterol 233, LDL 139, HDL 67 and triglycerides 137. Continue high-dose Lipitor 80 mg. * Hemoglobin A1c 5.0. * Neurologically clear.
[2021-03-16] MEDS ORDERED: WARFARIN 2 MG TAB PO ONE (18:00)
[2021-03-16 18:40] LABS: Basophils % (A) 0 %; Eosinophils # (A) 0.1 k/uL (0-0.7); Eosinophils % (A) 1 %; HCT 39.2 % (39.0-53.0); HGB 12.8 gm/dL (13.0-17.5); Lymphocytes # (A) 0.5 k/uL (1.0-4.8); Lymphocytes % (A) 3 %; MCH 30.5 pg (25.0-35.0); MCHC 32.6 g/dL (31.0-37.0); MCV 93.8 fL (80.0-100.0); Mean Platelet Volume 7.9; Monocytes # (A) 0.7 k/uL (0-1.0); Monocytes % (A) 5 %; Neutrophils # (A) 13.3 k/uL (1.3-7.7); Neutrophils % (A) 90 %; Platelet Count 200 k/uL (150-450); RBC 4.18 m/uL (4.30-5.90); RDW 14.4 % (11.5-15.5); WBC 14.7 k/uL (3.8-10.6)
[2021-03-16] MEDS ORDERED: MORPHINE SULFATE 2 MG/ML SYRINGE IVP PRN (18:52)
[2021-03-16 18:53] LABS: Albumin 3.6 g/dL (3.5-5.0); Magnesium 2.2 mg/dL (1.6-2.3); Phosphorus 3.3 mg/dL (2.5-4.5); Potassium 5.6 mmol/L (3.5-5.1); Total Bilirubin 0.4 mg/dL (0.2-1.3); Total Protein 6.9 g/dL (6.3-8.2)
[2021-03-16] MEDS ORDERED: DEXTROSE 50% SYRINGE 50 ML IVP STA (19:49)
[2021-03-16] MEDS ORDERED: SODIUM BICARB 8.4% 50 ML SYR (1 MEQ/ML) IV STA (19:50)
[2021-03-16] MEDS ORDERED: INSULIN REGULAR 100 UNIT/ML VIAL IV ONE (20:00)
--- NOTE | 2021-03-16 20:15 | P.PN ---
Subjective Progress Note Date: 03/16/21 (0700) Principal diagnosis: Syncope community acquired pneumonia 80-year-old [place] was admitted to the hospital for possible cardiac dysrhythmia with associated syncopal episodes. Patient was also being treated for community acquired pneumonia. He has significant medical history of Aortic valve replacement, hypertension, hyperlipidemia,Degenerative joint disease, carotid stenosis, and multiple comorbidities. Patient has multiple consults due to comorbidities and severity of illness. March 16, 2021, 0700 Evaluated patient this a.m. resting comfortably in chair, patient continues to endorse generalized weakness, intermittent dizziness, and neck discomfort. Patient denies fever, chills, shortness of breath, palpitations, chest pain, abdominal pain, nausea or vomiting or diarrhea. Plan for patient to go to [facility] rehab for regaining of strength, for carotid intervention for severe stenosis. Pending a.m. labs and diagnostic testing. Objective - Vital Signs Vital signs: Vital Signs Temp 98.1 F 03/16/21 00:00 Pulse 82 03/16/21 16:00 Resp 16 03/16/21 16:00 BP 138/77 03/16/21 16:00 Pulse Ox 95 03/16/21 16:00 Intake & Output 03/16/21 03/16/21 03/17/21 06:59 18:59 06:59 Intake Total 960 Output Total 350 550 Balance -350 410 Weight 104.1 kg Intake: Oral 960 Output: Urine 350 550 Other: Voiding Method Urinal Urinal # Voids 1 # Bowel Movements 1 - Constitutional General appearance: Present: mild distress - EENT Eyes: Present: EOMI, PERRLA ENT: Present: hard of hearing Ears: bilateral: normal - Neck Thyroid: bilateral: normal size - Respiratory Respiratory: bilateral: CTA (Anterior lung minor), diminished (Posterior lung minor) - Cardiovascular Details: Sinus rhythm with the left bundle branch block Heart rate: 82 Rhythm: regular Heart sounds: normal: S1, S2 - Peripheral pulses dorsalis pedis Peripheral Pulses: bilateral: Normal radial pulse Peripheral Pulses: bilateral: Normal - Gastrointestinal General gastrointestinal: Present: normal bowel sounds - Integumentary Integumentary: Present: normal turgor - Neurologic Neurologic: Present: CNII-XII intact - Musculoskeletal Musculoskeletal: Present: generalized weakness - Psychiatric Psychiatric: Present: A&O x's 3, appropriate affect, intact judgment & insight - Allied health notes Allied health notes reviewed: nursing - Labs CBC & Chem 7: 03/16/21 18:21 03/16/21 18:21 Labs: Abnormal Lab Results - Last 24 Hours (Table) 03/16/21 03/16/21 03/16/21 Range/Units 07:52 07:52 07:52 WBC 13.0 H (3.8-10.6) k/uL RBC (4.30-5.90) m/uL Hgb (13.0-17.5) gm/dL MCHC 30.5 L (31.0-37.0) g/dL Neutrophils # 11.3 H (1.3-7.7) k/uL Lymphocytes # 0.7 L (1.0-4.8) k/uL PT 27.2 H (9.0-12.0) sec INR 2.8 H (<1.2) Sodium (137-145) mmol/L Potassium (3.5-5.1) mmol/L BUN 30 H (9-20) mg/dL Glucose (74-99) mg/dL Alkaline Phosphatase (38-126) U/L 03/16/21 03/16/21 Range/Units 18:21 18:21 WBC 14.7 H (3.8-10.6) k/uL RBC 4.18 L (4.30-5.90) m/uL Hgb 12.8 L (13.0-17.5) gm/dL MCHC (31.0-37.0) g/dL Neutrophils # 13.3 H (1.3-7.7) k/uL Lymphocytes # 0.5 L (1.0-4.8) k/uL PT (9.0-12.0) sec INR (<1.2) Sodium 135 L (137-145) mmol/L Potassium 5.6 H (3.5-5.1) mmol/L BUN 36 H (9-20) mg/dL Glucose 112 H (74-99) mg/dL Alkaline Phosphatase 131 H (38-126) U/L - Imaging and Cardiology Chest x-ray: image reviewed Assessment and Plan Assessment: Syncope, possible cardiac dysrhythmia acute transient ischemic attack right lower lobe pneumonia, community acquired pneumonia Left carotid stenosis with suspected severe right proximal ICA stenosis Leukocytosis Hypertension hyperlipidemia Degenerative disc disease history of aortic valve replacement Mixed anxiety and depression History of prostate cancer Left bundle branch block and EKG DNR Plan: Syncope, continue for cardiac dysrhythmias, vital signs, and consultation with cardiology for recommendations and treatment plan acute transient ischemic attack, continue to monitor Neurological status, and consultation with neurology for recommendations and treatment plan community acquired pneumonia, continue antibiotic therapy carotid stenosis, consultation with vascular for recommendations and treatment plan continue medications as prescribed, continue to monitor vital signs and diagnostics continue medical management further recommendations to come based on patient's clinical status Time with Patient: Greater than 30
[2021-03-16] MEDS: ATORVASTATIN 80 MG TAB PO SCH (20:17)
[2021-03-16] MEDS ORDERED: CALCIUM GLUCONATE 1 GM in SODIUM CHLORIDE 0.9% 100 ML IVPB ONE (20:30)
[2021-03-16] MEDS: PIPERACILLIN-TAZOBACTAM 3.375 GM in SODIUM CHLORIDE 0.9% 100 ML IVPB SCH (21:32)
[2021-03-16] MEDS: ALPRAZolam 0.25 MG TAB PO PRN (23:03)
[2021-03-17] MEDS: HYDROcodone/APAP 5-325MG 1 EACH TAB PO PRN ×2 (00:10→22:46)
[2021-03-17] MEDS: PIPERACILLIN-TAZOBACTAM 3.375 GM in SODIUM CHLORIDE 0.9% 100 ML IVPB SCH ×3 (03:17→20:12)
[2021-03-17] MEDS: PANTOPRAZOLE 40 MG TABLET PO SCH (06:08)
[2021-03-17] MEDS: CHOLECALCIFEROL 25 MCG (1000 IU) TABLET PO SCH (08:11)
[2021-03-17] MEDS: ASPIRIN 81 MG PO SCH (08:11)
[2021-03-17] MEDS: predniSONE 10 MG TAB PO SCH (08:12)
[2021-03-17] MEDS: ASCORBIC ACID 500 MG TAB PO SCH ×2 (08:12→20:12)
[2021-03-17] MEDS: amLODIPine 5 MG TAB PO SCH ×2 (08:12→20:12)
[2021-03-17 08:15] LABS: INR 2.6 (<1.2); Prothrombin Time 24.8 sec (9.0-12.0)
[2021-03-17] MEDS ORDERED: SODIUM CHLORIDE 0.9% 1,000 ML IV SCH (09:30)
--- NOTE | 2021-03-17 09:40 | XR ---
EXAMINATION TYPE: XR chest 1V portable DATE OF EXAM: 03/17/2021 COMPARISON: Chest x-ray 03/16/2021 HISTORY: Pneumonia TECHNIQUE: Single frontal view of the chest is obtained. FINDINGS: Findings are similar to prior exam. IMPRESSION: There is no significant change. Postop changes. There are interstitial changes within th e lungs. The heart remains enlarged.
[2021-03-17] MEDS ORDERED: PHYTONADIONE ORAL 5 MG/5 ML ORAL.SYRG PO STA (10:32)
--- NOTE | 2021-03-17 10:56 | P.PN ---
Subjective Progress Note Date: 03/17/21 Principal diagnosis: Right lower lobe pneumonia Extensive history of smoking and nicotine use likely has severe COPD to be evaluated further outpatient basis Sleep disorder breathing and sleep apnea patient needs to be evaluated outpatient basis for sleep study Left internal carotid artery stenosis with symptoms History of aortic valve replacement 03/17/2021, patient seen eval examined during the rounds labs reviewed medications reviewed care plan discussed, respiratory status remains stable, still have intermittent cough is present denies any chest pain vascular surgery and cardiovascular services along with neurology have been evaluating the patient, patient remains on broad-spectrum antibiotics with Zosyn tolerating well, last chest was performed this morning overall remains stable 03/16/2021, patient sitting upright in the chair breathing comfortably he is st ill of ongoing cough, patient remains on broad-spectrum antibiotics being eval for left internal carotid artery stenosis, patient is being evaluated for surgical intervention, respiratory status is relatively more stable, patient likely will go to rehab, however feel that patient should get a sleep study and the evaluation for COPD prior to surgery as well chest x-ray performed today shows improvement in infiltrates suggestive of resolving pneumonia This is a 80-year-old male came into the hospital with recurrent syncopal episode, admitted chest x-ray revealed infiltrate consult is requested for pneumonia, patient has a prior history of atrial fibrillation also has history of the hypertension 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 about 21 years ago, he shouldn't has long-standing history of smoking and nicotine use smokes 2 packs a day lately have cut down, and was admitted into hospital with recurrent syncopal episode, workup and evaluation noted to have significant restenosis over 80% and left internal carotid, it appears that patient very well have a aspiration episode developed right lower lobe pneumonia, patient also has history of the shortness of breath off and on suggestive of COPD, also have a history of snoring likely a sleep disorder breathing and sleep apnea as well, currently patient is being treated with broad-spectrum antibiotics, anticoagulation with Coumadin, Objective - Vital Signs Vital signs: Vital Signs Temp 97.5 F L 03/17/21 03:46 Pulse 66 03/17/21 08:00 Resp 16 03/17/21 08:00 BP 131/64 03/17/21 08:00 Pulse Ox 98 03/17/21 08:00 Intake & Output 03/16/21 03/17/21 03/17/21 18:59 06:59 18:59 Intake Total 960 210 Output Total 550 1025 Balance 410 -815 Weight 104 kg Intake: IV 10 0.9 10 Intake, IV Titration 200 Amount Calcium Gluconate 1 gm In 100 Sodium Chloride 0.9% 100 ml @ 100 mls/hr IVPB ONCE ONE Rx#:[id number] Piperacillin-Tazobactam 3 100 .375 gm In Sodium Chloride 0.9% 100 ml @ 25 mls/hr IVPB Q8H [facility] Rx#: [id number] Oral 960 Output: Urine 550 1025 Other: Voiding Method Urinal Urinal # Voids 1 1 # Bowel Movements 1 - Exam - Constitutional General appearance: average body habitus, cooperative, disheveled - EENT Eyes: PERRLA Ears: bilateral: normal - Neck Carotids: bilateral: upstroke normal Thyroid: bilateral: normal size - Respiratory Respiratory: bilateral: diminished - Cardiovascular Rhythm: irregularly irregular Heart sounds: normal: S1, S2 - Gastrointestinal General gastrointestinal: normal bowel sounds, soft - Integumentary Integumentary: normal turgor - Neurologic Neurologic: CNII-XII intact - Musculoskeletal Musculoskeletal: gait normal, generalized weakness, strength equal bilaterally - Psychiatric Psychiatric: A&O x's 3, appropriate affect, intact judgment & insight - Labs CBC & Chem 7: 03/16/21 18:21 03/17/21 07:12 Labs: Abnormal Lab Results - Last 24 Hours (Table) 03/16/21 03/16/21 03/17/21 Range/Units 18:21 18:21 07:12 WBC 14.7 H (3.8-10.6) k/uL RBC 4.18 L (4.30-5.90) m/uL Hgb 12.8 L (13.0-17.5) gm/dL Neutrophils # 13.3 H (1.3-7.7) k/uL Lymphocytes # 0.5 L (1.0-4.8) k/uL PT 24.8 H (9.0-12.0) sec INR 2.6 H (<1.2) Sodium 135 L (137-145) mmol/L Potassium 5.6 H (3.5-5.1) mmol/L Carbon Dioxide (22-30) mmol/L BUN 36 H (9-20) mg/dL Glucose 112 H (74-99) mg/dL Alkaline Phosphatase 131 H (38-126) U/L 03/17/21 Range/Units 07:12 WBC (3.8-10.6) k/uL RBC (4.30-5.90) m/uL Hgb (13.0-17.5) gm/dL Neutrophils # (1.3-7.7) k/uL Lymphocytes # (1.0-4.8) k/uL PT (9.0-12.0) sec INR (<1.2) Sodium (137-145) mmol/L Potassium (3.5-5.1) mmol/L Carbon Dioxide 34 H (22-30) mmol/L BUN 29 H (9-20) mg/dL Glucose (74-99) mg/dL Alkaline Phosphatase (38-126) U/L Assessment and Plan Assessment: Right lower lobe pneumonia Extensive history of smoking and nicotine use likely has severe COPD to be evaluated further outpatient basis Sleep disorder breathing and sleep apnea patient needs to be evaluated outpatient basis for sleep study Left internal carotid artery stenosis with symptoms History of aortic valve replacement Plan: Continue antibiotics Deep breathing sense incentive spirometry Follow clinical course closely Repeat chest x-ray reviewed Further plan of care as per clinical response of patient and likely as out patient setting Agree with plans for surgery of left internal carotid Time with Patient: Greater than 30
[2021-03-17] MEDS ORDERED: HEPARIN SODIUM 1,000 UN/ML (10ML VL) IV PRN (11:01)
--- NOTE | 2021-03-17 11:06 | P.PN ---
Subjective This is a 80-year-old male with a past medical history significant for paroxysmal atrial fibrillation, hypertension, and mechanical aortic valve rep lacement 1998. Patient follows in the office with Dr. Prasad. We have been asked to see the patient in consultation for syncope. Patient was recently seen / secondary to syncopal episode while he was out walking towards some cats. He was worked up with echocardiogram which showed concern of moderate to severe mechanical aortic valve regurgitation with recommendations for possible ROBBY if clinically indicated. This has been monitored in the office. Patient however has noticed increased episodes of falls and lightheadedness. He had felt fairly well since being discharged however had been walking in the kitchen and suddenly he came lightheaded and fell. It appears he lost consciousness. He had difficulty getting up from the ground and therefore called EMS. EMS noted the patient EKG showing sinus bradycardia with heart rates in the 30s. It does appear there was a transition of somewhat slower heart rates for the first half of the EKG and then sinus bradycardia for the second half with some irregularity. There is no clear A-V dissociation and does not appear to be any P waves buried, no clear-cut evidence of high degree AV block. He has had workup with carotid ultrasound showing concern of left internal carotid artery stenosis. EKG shows sinus rhythm with left bundle branch block, first-degree AV block. He denies any shortness breath or chest pain. He admits to some back pain where he fell. He does admit to some episodes of feeling lightheaded however predominantly has been doing fairly well at home over the past week and a half. 03/16/2021 Patient is seen and examined sitting up in bed in no acute distress. He is complaining of feeling weak. Last night he had frequent episodes on telemetry of complete heart block. EKG verified this. He was feeling dizzy at the time. Blood pressures have remained stable. Laboratory data reviewed, INR 2.6, sodium 137, potassium 5, creatinine 1.02. Chest xray is stable. GENERAL: Well-appearing, well-nourished and in no acute distress. NECK: Supple without JVD or thyromegaly. Obese. LUNGS: Breath sounds clear to auscultation bilaterally. Respiration equal and unlabored. No wheezes, rales or rhonchi. HEART: Regular rate and rhythm with soft mechanical click at the base, no rubs or gallops. S1 and S2 heard. EXTREMITIES: Normal range of motion, no edema. No clubbing or cyanosis. Peripheral pulses intact. ASSESSMENT Syncope, recurrent Complete heart block Mechanical aortic valve replacement, 1998 maintained on Coumadin with aortic insufficiency Subtherapeutic INR on admission Pneumonia, right lower lobe. Pulmonary following on IV antibiotics. Paroxysmal atrial fibrillation Peripheral vascular disease status post right carotid endarterectomy Hypertension PLAN Hold coumadin and initiate heparin infusion. Give one dose of PO vitamin K. NPO after midnight for permanent pacemaker implantation tomorrow. I have discussed the risks, benefits and alternative therapies for the above-mentioned procedure and for both sedation/analgesia as well as necessary blood product administration, if indicated, as they pertain to this patient. The patient has indicated understanding and acceptance of the risks and procedures discussed. Questions have been answered appropriately. Further recommendations to follow based on clinical course. Nurse Practitioner note has been reviewed, I agree with a documented findings and plan of care. Patient was seen and examined. Objective - Vital Signs Vital signs: Vital Signs Temp 97.5 F L 03/17/21 03:46 Pulse 66 03/17/21 08:00 Resp 16 03/17/21 08:00 BP 131/64 03/17/21 08:00 Pulse Ox 98 03/17/21 08:00 Intake & Output 03/16/21 03/17/21 03/17/21 18:59 06:59 18:59 Intake Total 960 210 Output Total 550 1025 Balance 410 -815 Weight 104 kg Intake: IV 10 0.9 10 Intake, IV Titration 200 Amount Calcium Gluconate 1 gm In 100 Sodium Chloride 0.9% 100 ml @ 100 mls/hr IVPB ONCE ONE Rx#:[id number] Piperacillin-Tazobactam 3 100 .375 gm In Sodium Chloride 0.9% 100 ml @ 25 mls/hr IVPB Q8H [facility] Rx#: [id number] Oral 960 Output: Urine 550 1025 Other: Voiding Method Urinal Urinal # Voids 1 1 # Bowel Movements 1 - Labs CBC & Chem 7: 03/16/21 18:21 03/17/21 07:12 Labs: Abnormal Lab Results - Last 24 Hours (Table) 03/16/21 03/16/21 03/17/21 Range/Units 18:21 18:21 07:12 WBC 14.7 H (3.8-10.6) k/uL RBC 4.18 L (4.30-5.90) m/uL Hgb 12.8 L (13.0-17.5) gm/dL Neutrophils # 13.3 H (1.3-7.7) k/uL Lymphocytes # 0.5 L (1.0-4.8) k/uL PT 24.8 H (9.0-12.0) sec INR 2.6 H (<1.2) Sodium 135 L (137-145) mmol/L Potassium 5.6 H (3.5-5.1) mmol/L Carbon Dioxide (22-30) mmol/L BUN 36 H (9-20) mg/dL Glucose 112 H (74-99) mg/dL Alkaline Phosphatase 131 H (38-126) U/L 03/17/21 Range/Units 07:12 WBC (3.8-10.6) k/uL RBC (4.30-5.90) m/uL Hgb (13.0-17.5) gm/dL Neutrophils # (1.3-7.7) k/uL Lymphocytes # (1.0-4.8) k/uL PT (9.0-12.0) sec INR (<1.2) Sodium (137-145) mmol/L Potassium (3.5-5.1) mmol/L Carbon Dioxide 34 H (22-30) mmol/L BUN 29 H (9-20) mg/dL Glucose (74-99) mg/dL Alkaline Phosphatase (38-126) U/L
[2021-03-17 11:25] LABS: Basophils # (A) 0.1 k/uL (0-0.2); Basophils % (A) 1 %; Eosinophils # (A) 0.4 k/uL (0-0.7); Eosinophils % (A) 3 %; HCT 40.2 % (39.0-53.0); HGB 12.5 gm/dL (13.0-17.5); Lymphocytes # (A) 0.8 k/uL (1.0-4.8); Lymphocytes % (A) 6 %; MCH 29.9 pg (25.0-35.0); MCHC 31.1 g/dL (31.0-37.0); MCV 96.3 fL (80.0-100.0); Mean Platelet Volume 8.8; Monocytes # (A) 0.7 k/uL (0-1.0); Monocytes % (A) 6 %; Neutrophils # (A) 11.2 k/uL (1.3-7.7); Neutrophils % (A) 84 %; Platelet Count 191 k/uL (150-450); RBC 4.17 m/uL (4.30-5.90); RDW 14.9 % (11.5-15.5); WBC 13.3 k/uL (3.8-10.6)
[2021-03-17] MEDS: HEPARIN SOD,PORK IN 0.45% NACL 25,000 UNIT in 0.45% NACL 1 250ML.BAG IV SCH (12:42)
[2021-03-17] MEDS: SODIUM CHLORIDE 0.9% 1,000 ML IV SCH (16:49)
[2021-03-17] MEDS ORDERED: WARFARIN 5 MG TAB PO ONE (18:00)
[2021-03-17] MEDS: ATORVASTATIN 80 MG TAB PO SCH (20:12)
--- NOTE | 2021-03-17 22:19 | P.PN ---
Subjective Progress Note Date: 03/17/21 Principal diagnosis: Syncope Cardiac dysrhythmias community acquired pneumonia 80-year-old [place] was admitted to the hospital for possible cardiac dysrhythmia with associated syncopal episodes. Patient was also being treated for community acquired pneumonia. He has significant medical history of Aortic valve replacement, hypertension, hyperlipidemia,Degenerative joint disease, carotid stenosis, and multiple comorbidities. Patient has multiple consults due to comorbidities and severity of illness. March 16, 2021, 0700 Evaluated patient this a.m. resting comfortably in chair, patient continues to endorse generalized weakness, intermittent dizziness, and neck discomfort. Ronan sheets denies fever, chills, shortness of breath, palpitations, chest pain, abdominal pain, nausea or vomiting or diarrhea. Plan for patient to go to [facility] rehab for regaining of strength, for carotid intervention for severe stenosis. Pending a.m. labs and diagnostic testing. March 17, 2021 evaluated patient this a.m. resting comfortably in bed, patient continues to endorse generalized weakness and intermittent dizziness. March 16 to and 1800 patient had a episode of severe dizziness with associated heart rate of 35 appeared to be AV block, cardiology was notified patient was placed on patient has as needed. No episodes were noted throughout the night. Elevated potassium was treated with calcium gluconate, dextrose, insulin, and sodium bicarb. Awaiting recommendations from cardiology for possible pacemaker placement. Objective - Vital Signs Vital signs: Vital Signs Temp 97.9 F 03/17/21 20:00 Pulse 77 03/17/21 20:00 Resp 18 03/17/21 20:00 BP 133/51 03/17/21 20:00 Pulse Ox 94 L 03/17/21 20:00 Intake & Output 03/17/21 03/17/21 03/18/21 06:59 18:59 06:59 Intake Total 210 240 350 Output Total 1025 375 Balance -815 -135 350 Weight 104 kg Intake: IV 10 10 0.9 10 10 Intake, IV Titration 200 100 Amount Calcium Gluconate 1 gm In 100 Sodium Chloride 0.9% 100 ml @ 100 mls/hr IVPB ONCE ONE Rx#:[id number] Piperacillin-Tazobactam 3 100 100 .375 gm In Sodium Chloride 0.9% 100 ml @ 25 mls/hr IVPB Q8H [facility] Rx#: [id number] Oral 240 240 Output: Urine 1025 375 Other: Voiding Method Urinal Urinal Urinal # Voids 1 1 # Bowel Movements 1 - Constitutional General appearance: Present: mild distress - EENT Eyes: Present: EOMI, PERRLA ENT: Present: hard of hearing Ears: bilateral: normal - Neck Thyroid: bilateral: normal size - Respiratory Respiratory: bilateral: diminished (Anterior and posterior lung minor) - Cardiovascular Details: Sinus rhythm with the left bundle branch block Heart rate: 72 Rhythm: regular Heart sounds: normal: S1, S2 - Peripheral pulses radial pulse Peripheral Pulses: bilateral: Normal - Gastrointestinal General gastrointestinal: Present: normal bowel sounds - Integumentary Integumentary: Present: decreased turgor, pale - Neurologic Neurologic: Present: CNII-XII intact - Musculoskeletal Musculoskeletal: Present: generalized weakness - Psychiatric Psychiatric: Present: A&O x's 3, appropriate affect, intact judgment & insight - Allied health notes Allied health notes reviewed: OT - Labs CBC & Chem 7: 03/17/21 07:12 03/17/21 07:12 Labs: Abnormal Lab Results - Last 24 Hours (Table) 03/17/21 03/17/21 03/17/21 Range/Units 07:12 07:12 07:12 WBC 13.3 H (3.8-10.6) k/uL RBC 4.17 L (4.30-5.90) m/uL Hgb 12.5 L (13.0-17.5) gm/dL Neutrophils # 11.2 H (1.3-7.7) k/uL Lymphocytes # 0.8 L (1.0-4.8) k/uL PT 24.8 H (9.0-12.0) sec INR 2.6 H (<1.2) APTT (22.0-30.0) sec Carbon Dioxide 34 H (22-30) mmol/L BUN 29 H (9-20) mg/dL 03/17/21 03/17/21 Range/Units 16:56 18:35 WBC (3.8-10.6) k/uL RBC (4.30-5.90) m/uL Hgb (13.0-17.5) gm/dL Neutrophils # (1.3-7.7) k/uL Lymphocytes # (1.0-4.8) k/uL PT (9.0-12.0) sec INR (<1.2) APTT 55.6 H 57.9 H (22.0-30.0) sec Carbon Dioxide (22-30) mmol/L BUN (9-20) mg/dL - Imaging and Cardiology Chest x-ray: report reviewed Assessment and Plan Assessment: Syncope, possible cardiac dysrhythmia acute transient ischemic attack right lower lobe pneumonia, community acquired pneumonia Left carotid stenosis with suspected severe right proximal ICA stenosis Leukocytosis Hypertension hyperlipidemia Degenerative disc disease history of aortic valve replacement Mixed anxiety and depression History of prostate cancer Left bundle branch block and EKG DNR Plan: Syncope, continue for cardiac dysrhythmias, vital signs, and consultation with cardiology for recommendations and treatment plan,Hopeful permanent pacemaker acute transient ischemic attack, continue to monitor Neurological status, and consultation with neurology for recommendations and treatment plan community acquired pneumonia, continue antibiotic therapy carotid stenosis, consultation with vascular for recommendations and treatment plan continue medications as prescribed, continue to monitor vital signs and diagnostics continue medical management further recommendations to come based on patient's clinical status Time with Patient: Greater than 30
[2021-03-18] MEDS: PIPERACILLIN-TAZOBACTAM 3.375 GM in SODIUM CHLORIDE 0.9% 100 ML IVPB SCH ×3 (03:06→19:31)
[2021-03-18] MEDS: SODIUM CHLORIDE 0.9% 1,000 ML IV SCH (03:07)
[2021-03-18 06:04] LABS: Glucose,Whole Blood 91 mg/dL (75-99)
[2021-03-18] MEDS: CHOLECALCIFEROL 25 MCG (1000 IU) TABLET PO SCH (06:35)
[2021-03-18] MEDS: ASCORBIC ACID 500 MG TAB PO SCH ×2 (06:35→19:32)
[2021-03-18] MEDS: ASPIRIN 81 MG PO SCH (06:35)
[2021-03-18] MEDS: predniSONE 10 MG TAB PO SCH (06:35)
[2021-03-18] MEDS: amLODIPine 5 MG TAB PO SCH ×2 (06:35→19:32)
[2021-03-18] MEDS: PANTOPRAZOLE 40 MG TABLET PO SCH (06:35)
[2021-03-18] MEDS ORDERED: ceFAZolin 1 GM in SODIUM CHLORIDE 0.9% 250 ML IRRIGATION PRN (07:00)
[2021-03-18 08:17] LABS: Basophils # (A) 0.1 k/uL (0-0.2); Basophils % (A) 1 %; Eosinophils # (A) 0.5 k/uL (0-0.7); Eosinophils % (A) 4 %; HCT 37.6 % (39.0-53.0); HGB 12.5 gm/dL (13.0-17.5); Lymphocytes # (A) 0.7 k/uL (1.0-4.8); Lymphocytes % (A) 5 %; MCH 31.5 pg (25.0-35.0); MCHC 33.3 g/dL (31.0-37.0); MCV 94.6 fL (80.0-100.0); Mean Platelet Volume 7.9; Monocytes # (A) 0.8 k/uL (0-1.0); Monocytes % (A) 6 %; Neutrophils # (A) 12.3 k/uL (1.3-7.7); Neutrophils % (A) 84 %; Platelet Count 189 k/uL (150-450); RBC 3.97 m/uL (4.30-5.90); RDW 14.6 % (11.5-15.5); WBC 14.6 k/uL (3.8-10.6)
[2021-03-18 08:27] LABS: INR 1.5 (<1.2); Prothrombin Time 15.1 sec (9.0-12.0)
--- NOTE | 2021-03-18 09:36 | P.PN ---
Subjective Progress Note Date: 03/17/21 03/17/2021: Patient is sitting in the recliner, offers no complaints. Denies any new focal symptoms. No dizziness. Telemetry monitoring showing sinus rhythm with bundle branch block. 03/16/2021 patient was seen for a follow-up. Patient denies any new focal symptoms. Denies any headache, problem with the vision, hoarseness, sore throat. Denies any numbness tingling focal weakness, slurred speech or facial droop. No further syncopal spells. 03/15/2021 Patient was seen for a follow-up. Patient seen by Dr. Sylvester Campos yesterday. Please refer to his note for details. Patient came to the hospital for 3 episodes of syncope. The first one occurred when he slipped and fell backwards. He had to call the ambulance. The other 2 were more syncope, and occurred at home. With one of them he was at the kitchen table making coffee, went to the sink and then became dizzy lightheaded and passed out. He was out for only 5 seconds. He was standing all these 3 times. Patient denies any numbness tingling focal weakness, problem with the vision, any slurred speech or strokelike symptoms. Telemetry monitoring showing sinus rhythm, with sinus bradycardia. Objective - Vital Signs Vital signs: Vital Signs Temp 97.5 F L 03/17/21 03:46 Pulse 79 03/17/21 16:00 Resp 16 03/17/21 16:00 BP 149/69 03/17/21 16:00 Pulse Ox 96 03/17/21 16:00 Intake & Output 03/17/21 03/17/21 03/18/21 06:59 18:59 06:59 Intake Total 210 240 240 Output Total 1025 375 Balance -815 -135 240 Weight 104 kg Intake: IV 10 0.9 10 Intake, IV Titration 200 Amount Calcium Gluconate 1 gm In 100 Sodium Chloride 0.9% 100 ml @ 100 mls/hr IVPB ONCE ONE Rx#:[id number] Piperacillin-Tazobactam 3 100 .375 gm In Sodium Chloride 0.9% 100 ml @ 25 mls/hr IVPB Q8H [facility] Rx#: [id number] Oral 240 240 Output: Urine 1025 375 Other: Voiding Method Urinal Urinal # Voids 1 1 # Bowel Movements 1 - Exam Patient's mental status, speech and language functions are normal. Cranial nerves are normal. Muscle strength is normal. No ataxia. No pronator drift. Sensations equal. - Labs CBC & Chem 7: 03/18/21 07:49 03/17/21 07:12 Labs: Abnormal Lab Results - Last 24 Hours (Table) 03/17/21 03/17/21 03/17/21 Range/Units 07:12 07:12 07:12 WBC 13.3 H (3.8-10.6) k/uL RBC 4.17 L (4.30-5.90) m/uL Hgb 12.5 L (13.0-17.5) gm/dL Neutrophils # 11.2 H (1.3-7.7) k/uL Lymphocytes # 0.8 L (1.0-4.8) k/uL PT 24.8 H (9.0-12.0) sec INR 2.6 H (<1.2) APTT (22.0-30.0) sec Carbon Dioxide 34 H (22-30) mmol/L BUN 29 H (9-20) mg/dL 03/17/21 03/17/21 Range/Units 16:56 18:35 WBC (3.8-10.6) k/uL RBC (4.30-5.90) m/uL Hgb (13.0-17.5) gm/dL Neutrophils # (1.3-7.7) k/uL Lymphocytes # (1.0-4.8) k/uL PT (9.0-12.0) sec INR (<1.2) APTT 55.6 H 57.9 H (22.0-30.0) sec Carbon Dioxide (22-30) mmol/L BUN (9-20) mg/dL Assessment and Plan Assessment: * Syncopal spells, likely vasovagal, or orthostatic. No definitive clinical evidence of TIA, with lack of any focal symptoms. However TIA is a possibility from bilateral severe carotid stenosis. * Bilateral ICA stenosis, very severe on the left, severe on the right. * C6 spinous process fracture, orthopedic surgery on board. No surgical intervention needed. * History of right carotid endarterectomy 25 years ago. * History of aortic valve replacement. * Right lower lobe pneumonia, history of COPD * Sleep-disordered breathing. Plan: * Patient is neurologically stable. Examination is nonfocal. * EEG 03/15/2021 was mildly abnormal due to background slowing, suggestive of mild encephalopathy. No epileptiform activity was seen. * Patient has been seen by vascular surgery, and have recommended CEA on the left side, as outpatient. Patient will go to subacute rehab first before undergoing left CEA. * Patient is on Coumadin, INR therapeutic 2.6 as of today. Continue aspirin 81 mg. * CTA head and neck reveals short segment occlusion or critical stenosis pro ximal left ICA. Suspect severe right proximal ICA stenosis. No intracranial aneurysm. * Lipid panel with cholesterol 233, LDL 139, HDL 67 and triglycerides 137. Continue high-dose Lipitor 80 mg. * Hemoglobin A1c 5.0. * Neurologically clear.
--- NOTE | 2021-03-18 10:17 | P.PN ---
Subjective Progress Note Date: 03/18/21 Principal diagnosis: Right lower lobe pneumonia Extensive history of smoking and nicotine use likely has severe COPD to be evaluated further outpatient basis Sleep disorder breathing and sleep apnea patient needs to be evaluated outpatient basis for sleep study Left internal carotid artery stenosis with symptoms History of aortic valve replacement 03/18/2021, patient seen eval examined during the rounds labs reviewed medications reviewed care plan discussed, respiratory status remains stable, chest x-ray performed yesterday WAS stable, patient is ROM air intermittent co ugh is present which is dry and nonproductive, continued to get workup and evaluation for syncope, patient is noted to have a complete heart block for pacemaker insertion 03/17/2021, patient seen eval examined during the rounds labs reviewed medications reviewed care plan discussed, respiratory status remains stable, still have intermittent cough is present denies any chest pain vascular surgery and cardiovascular services along with neurology have been evaluating the patient, patient remains on broad-spectrum antibiotics with Zosyn tolerating well, last chest was performed this morning overall remains stable 03/16/2021, patient sitting upright in the chair breathing comfortably he is still of ongoing cough, patient remains on broad-spectrum antibiotics being eval for left internal carotid artery stenosis, patient is being evaluated for surgical intervention, respiratory status is relatively more stable, patient likely will go to rehab, however feel that patient should get a sleep study and the evaluation for COPD prior to surgery as well chest x-ray performed today shows improvement in infiltrates suggestive of resolving pneumonia This is a 80-year-old male came into the hospital with recurrent syncopal episode, admitted chest x-ray revealed infiltrate consult is requested for pneumonia, patient has a prior history of atrial fibrillation also has history of the hypertension 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 about 21 years ago, he shouldn't has long-standing history of smoking and nicotine use smokes 2 packs a day lately have cut down, and was admitted into hospital with recurrent syncopal episode, workup and evaluation noted to have significant restenosis over 80% and left internal carotid, it appears that patient very well have a aspiration episode developed right lower lobe pneumonia, patient also has history of the shortness of breath off and on suggestive of COPD, also have a history of snoring likely a sleep disorder breathing and sleep apnea as well, currently patient is being treated with broad-spectrum antibiotics, anticoagulation with Coumadin, Objective - Vital Signs Vital signs: Vital Signs Temp 97.8 F 03/18/21 08:19 Pulse 70 03/18/21 08:19 Resp 16 03/18/21 08:19 BP 145/66 03/18/21 08:19 Pulse Ox 98 03/18/21 08:19 Intake & Output 03/17/21 03/18/21 03/18/21 18:59 06:59 18:59 Intake Total 240 350 206.667 Output Total 375 300 Balance -135 50 206.667 Weight 101.8 kg Intake: IV 10 0.9 10 Intake, IV Titration 100 206.667 Amount Heparin Sod,Pork in 0.45% 206.667 NaCl 25,000 unit In 0.45 % NaCl 1 250ml.bag @ 9. 6154 UNITS/KG/HR 10 mls/ hr IV .Q24H [facility] Rx#: [id number] Piperacillin-Tazobactam 3 100 .375 gm In Sodium Chloride 0.9% 100 ml @ 25 mls/hr IVPB Q8H [facility] Rx#: [id number] Oral 240 240 Output: Urine 375 300 Other: Voiding Method Urinal Urinal Urinal # Voids 1 2 # Bowel Movements 1 1 - Exam - Constitutional General appearance: average body habitus, cooperative, disheveled - EENT Eyes: PERRLA Ears: bilateral: normal - Neck Carotids: bilateral: upstroke normal Thyroid: bilateral: normal size - Respiratory Respiratory: bilateral: diminished - Cardiovascular Rhythm: irregularly irregular Heart sounds: normal: S1, S2 - Gastrointestinal General gastrointestinal: normal bowel sounds, soft - Integumentary Integumentary: normal turgor - Neurologic Neurologic: CNII-XII intact - Musculoskeletal Musculoskeletal: gait normal, generalized weakness, strength equal bilaterally - Psychiatric Psychiatric: A&O x's 3, appropriate affect, intact judgment & insight - Labs CBC & Chem 7: 03/18/21 07:49 03/17/21 07:12 Labs: Abnormal Lab Results - Last 24 Hours (Table) 03/17/21 03/17/21 03/17/21 Range/Units 07:12 16:56 18:35 WBC 13.3 H (3.8-10.6) k/uL RBC 4.17 L (4.30-5.90) m/uL Hgb 12.5 L (13.0-17.5) gm/dL Hct (39.0-53.0) % Neutrophils # 11.2 H (1.3-7.7) k/uL Lymphocytes # 0.8 L (1.0-4.8) k/uL PT (9.0-12.0) sec INR (<1.2) APTT 55.6 H 57.9 H (22.0-30.0) sec 03/18/21 03/18/21 03/18/21 Range/Units 07:49 07:49 07:49 WBC 14.6 H (3.8-10.6) k/uL RBC 3.97 L (4.30-5.90) m/uL Hgb 12.5 L (13.0-17.5) gm/dL Hct 37.6 L (39.0-53.0) % Neutrophils # 12.3 H (1.3-7.7) k/uL Lymphocytes # 0.7 L (1.0-4.8) k/uL PT 15.1 H (9.0-12.0) sec INR 1.5 H (<1.2) APTT 54.2 H (22.0-30.0) sec Assessment and Plan Assessment: Right lower lobe pneumonia, clinically and radiographically continued to improve Complete heart block Extensive history of smoking and nicotine use likely has severe COPD to be evalu ated further outpatient basis Sleep disorder breathing and sleep apnea patient needs to be evaluated outpatient basis for sleep study Left internal carotid artery stenosis with symptoms History of aortic valve replacement Plan: Continue antibiotics, can be changed to oral For pacemaker insertion by cardiovascular services Deep breathing sense incentive spirometry Follow clinical course closely Repeat chest x-ray reviewed Further plan of care as per clinical response of patient and likely as outpatient setting Workup and evaluation of stenosed left internal carotid in progress by vascular surgery Time with Patient: Greater than 30
[2021-03-18 11:35] VITALS: BMI 30.4
[2021-03-18] MEDS ORDERED: IOPAMIDOL-250 50ML BTL IV ONE (12:55)
[2021-03-18] MEDS ORDERED: LIDOCAINE 1% INJ 10MG/ML (20 ML MDV) ONE (12:56)
[2021-03-18] MEDS ORDERED: HYDROmorphone 1 MG/ML 1 ML SYRINGE IVP ONE (13:00)
[2021-03-18] MEDS ORDERED: LIDOCAINE 1% INJ 10MG/ML (20 ML MDV) SQ ONE (13:03)
[2021-03-18] MEDS ORDERED: MIDAZOLAM 2 MG/2 ML VIAL IV ONE (13:11)
[2021-03-18] MEDS ORDERED: IV FLUID CONTINUATION 300 ML IV ONE (13:12)
--- NOTE | 2021-03-18 13:16 | P.PN ---
Subjective Patient is admitted for complete heart block patient is also being treated for right lower lobe pneumonia patient is presently on Zosyn because of that reason I discontinued preoperative antibiotic that he ceftezolin. Constitutional: Denied any fatigue denied any fever. Cardio vascular: denied any chest pain, palpitations Gastrointestinal denied any nausea vomiting Pulmonary: Denied any shortness of breath cough Neurologic denied any new focal deficits All inpatient medications were reviewed and appropriate changes in these medications as dictated in the interval history and assessment and plan. Objective - Vital Signs Vital signs: Vital Signs Temp 97.9 F 03/18/21 12:00 Pulse 74 03/18/21 12:00 Resp 16 03/18/21 12:00 BP 139/62 03/18/21 12:00 Pulse Ox 97 03/18/21 12:00 Intake & Output 03/17/21 03/18/21 03/18/21 18:59 06:59 18:59 Intake Total 240 350 206.667 Output Total 375 300 Balance -135 50 206.667 Weight 101.8 kg 101.8 kg Intake: IV 10 0.9 10 Intake, IV Titration 100 206.667 Amount Heparin Sod,Pork in 0.45% 206.667 NaCl 25,000 unit In 0.45 % NaCl 1 250ml.bag @ 9. 6154 UNITS/KG/HR 10 mls/ hr IV .Q24H [facility] Rx#: [id number] Piperacillin-Tazobactam 3 100 .375 gm In Sodium Chloride 0.9% 100 ml @ 25 mls/hr IVPB Q8H [facility] Rx#: [id number] Oral 240 240 Output: Urine 375 300 Other: Voiding Method Urinal Urinal Urinal # Voids 1 2 # Bowel Movements 1 1 - Exam PHYSICAL EXAMINATION: GENERAL: The patient is alert and oriented x3, not in any acute distress. Well developed, well nourished. HEENT: Pupils are round and equally reacting to light. EOMI. No scleral icterus. No conjunctival pallor. Normocephalic, atraumatic. No pharyngeal erythema. No thyromegaly. CARDIOVASCULAR: S1 and S2 present. No murmurs, rubs, or gallops. PULMONARY: Chest is clear to auscultation, no wheezing or crackles. ABDOMEN: Soft, nontender, nondistended, normoactive bowel sounds. No palpable organomegaly. MUSCULOSKELETAL: No joint swelling or deformity. EXTREMITIES: No cyanosis, clubbing, or pedal edema. NEUROLOGICAL: Gross neurological examination did not reveal any focal deficits. SKIN: There are multiple bruises because of Coumadin. - Labs CBC & Chem 7: 03/18/21 07:49 03/17/21 07:12 Labs: Abnormal Lab Results - Last 24 Hours (Table) 03/17/21 03/17/21 03/18/21 Range/Units 16:56 18:35 07:49 WBC (3.8-10.6) k/uL RBC (4.30-5.90) m/uL Hgb (13.0-17.5) gm/dL Hct (39.0-53.0) % Neutrophils # (1.3-7.7) k/uL Lymphocytes # (1.0-4.8) k/uL PT 15.1 H (9.0-12.0) sec INR 1.5 H (<1.2) APTT 55.6 H 57.9 H (22.0-30.0) sec 03/18/21 03/18/21 Range/Units 07:49 07:49 WBC 14.6 H (3.8-10.6) k/uL RBC 3.97 L (4.30-5.90) m/uL Hgb 12.5 L (13.0-17.5) gm/dL Hct 37.6 L (39.0-53.0) % Neutrophils # 12.3 H (1.3-7.7) k/uL Lymphocytes # 0.7 L (1.0-4.8) k/uL PT (9.0-12.0) sec INR (<1.2) APTT 54.2 H (22.0-30.0) sec Assessment and Plan Plan: Syncope: Related to be seconded to complete heart block and patient will undergo pacemaker placement today -Right lower lobe pneumonia and patient is presently on Zosyn treating for aspiration pneumonia -Hypertension -Hyperlipidemia -Aortic stenosis with history of vertigo well replacement -History of prostate cancer. Patient's Coumadin is being held for pacemaker placement patient will undergo pacemaker placement today. Patient does have leukocytosis which fairly remained stable at 14,000.
[2021-03-18] MEDS ORDERED: HYDROmorphone 0.5 MG/0.5 ML SYRINGE IVP ONE (13:36)
--- NOTE | 2021-03-18 14:32 | XR ---
EXAMINATION TYPE: XR chest 1V portable DATE OF EXAM: 03/18/2021 COMPARISON: Chest x-ray 03/17/2021 HISTORY: Lead placement check TECHNIQUE: Single frontal view of the chest is obtained. FINDINGS: There is been interval placement of a generator in left pectoral region, there are leads i n the right atrium and ventricle. There is no pneumothorax or pleural effusion. No other significant interval change. Patchy densities within the lungs are noted and better seen. Interstitium remains pr ominent. IMPRESSION: No evident complication status post lead placement
[2021-03-18] MEDS: HEPARIN SOD,PORK IN 0.45% NACL 25,000 UNIT in 0.45% NACL 1 250ML.BAG IV SCH (14:40)
[2021-03-18] MEDS ORDERED: WARFARIN 5 MG TAB PO ONE (18:00)
[2021-03-18] MEDS: ATORVASTATIN 80 MG TAB PO SCH (19:31)
[2021-03-18] MEDS: HYDROcodone/APAP 5-325MG 1 EACH TAB PO PRN (19:32)
[2021-03-19] MEDS: HYDROcodone/APAP 5-325MG 1 EACH TAB PO PRN ×3 (02:15→19:17)
[2021-03-19] MEDS: PIPERACILLIN-TAZOBACTAM 3.375 GM in SODIUM CHLORIDE 0.9% 100 ML IVPB SCH ×3 (04:00→19:50)
[2021-03-19] MEDS: SODIUM CHLORIDE 0.9% 1,000 ML IV SCH (04:37)
[2021-03-19] MEDS: PANTOPRAZOLE 40 MG TABLET PO SCH (06:30)
[2021-03-19] MEDS: predniSONE 10 MG TAB PO SCH (08:16)
[2021-03-19] MEDS: CHOLECALCIFEROL 25 MCG (1000 IU) TABLET PO SCH (08:16)
[2021-03-19] MEDS: ASCORBIC ACID 500 MG TAB PO SCH ×2 (08:16→19:50)
[2021-03-19] MEDS: ASPIRIN 81 MG PO SCH (08:16)
[2021-03-19] MEDS: amLODIPine 5 MG TAB PO SCH ×2 (08:16→19:50)
--- NOTE | 2021-03-19 08:22 | P.PN ---
Subjective Progress Note Date: 03/18/21 03/18/2021: Patient is laying comfortably in the bed. No further symptoms. No stroke TIA symptoms. Patient had undergone pacemaker placement today. 03/17/2021: Patient is sitting in the recliner, offers no complaints. Denies any new focal symptoms. No dizziness. Telemetry monitoring showing sinus r hythm with bundle branch block. 03/16/2021 patient was seen for a follow-up. Patient denies any new focal symptoms. Denies any headache, problem with the vision, hoarseness, sore throat. Denies any numbness tingling focal weakness, slurred speech or facial droop. No further syncopal spells. 03/15/2021 Patient was seen for a follow-up. Patient seen by Dr. Sylvester Campos yesterday. Please refer to his note for details. Patient came to the hospital for 3 episodes of syncope. The first one occurred when he slipped and fell backwards. He had to call the ambulance. The other 2 were more syncope, and occurred at home. With one of them he was at the kitchen table making coffee, went to the sink and then became dizzy lightheaded and passed out. He was out for only 5 seconds. He was standing all these 3 times. Patient denies any numbness tingling focal weakness, problem with the vision, any slurred speech or strokelike symptoms. Telemetry monitoring showing sinus rhythm, with sinus bradycardia. Objective - Vital Signs Vital signs: Vital Signs Temp 97.8 F 03/18/21 19:45 Pulse 69 03/18/21 19:45 Resp 16 03/18/21 19:45 BP 118/54 03/18/21 19:45 Pulse Ox 97 03/18/21 19:45 Intake & Output 03/18/21 03/18/21 03/19/21 06:59 18:59 06:59 Intake Total 350 896.667 Output Total 300 500 Balance 50 396.667 Weight 101.8 kg 101.8 kg Intake: IV 10 150 0.9 10 Intake, IV Titration 100 206.667 Amount Heparin Sod,Pork in 0.45% 206.667 NaCl 25,000 unit In 0.45 % NaCl 1 250ml.bag @ 9. 6154 UNITS/KG/HR 10 mls/ hr IV .Q24H [facility] Rx#: [id number] Piperacillin-Tazobactam 3 100 .375 gm In Sodium Chloride 0.9% 100 ml @ 25 mls/hr IVPB Q8H [facility] Rx#: [id number] Oral 240 540 Output: Urine 300 500 Other: Voiding Method Urinal Urinal Urinal # Voids 2 # Bowel Movements 1 - Exam Patient's mental status, speech and language functions are normal. Cranial nerves are normal. Muscle strength is normal. No ataxia. No pronator drift. Sensations equal. - Labs CBC & Chem 7: 03/18/21 07:49 03/17/21 07:12 Labs: Abnormal Lab Results - Last 24 Hours (Table) 03/18/21 03/18/21 03/18/21 Range/Units 07:49 07:49 07:49 WBC 14.6 H (3.8-10.6) k/uL RBC 3.97 L (4.30-5.90) m/uL Hgb 12.5 L (13.0-17.5) gm/dL Hct 37.6 L (39.0-53.0) % Neutrophils # 12.3 H (1.3-7.7) k/uL Lymphocytes # 0.7 L (1.0-4.8) k/uL PT 15.1 H (9.0-12.0) sec INR 1.5 H (<1.2) APTT 54.2 H (22.0-30.0) sec Assessment and Plan Assessment: * Syncopal spells, likely from complete heart block. Patient is status post pacemaker placement today. No definitive clinical evidence of TIA, with lack of any focal symptoms. However TIA is a possibility from bilateral severe car otid stenosis. * Bilateral ICA stenosis, very severe on the left, severe on the right. * Paroxysmal atrial fibrillation, on Coumadin * History of aortic stenosis with mechanical aortic valve replacement 1998. * C6 spinous process fracture, orthopedic surgery on board. No surgical intervention needed. * History of right carotid endarterectomy 25 years ago. * History of aortic valve replacement. * Right lower lobe pneumonia, history of COPD * Sleep-disordered breathing. Plan: * Patient is neurologically stable. Examination is nonfocal. Patient is status post pacemaker placement today. * EEG 03/15/2021 was mildly abnormal due to background slowing, suggestive of mild encephalopathy. No epileptiform activity was seen. * Patient has been seen by vascular surgery, and have recommended CEA on the left side, as outpatient. Patient will go to subacute rehab first before undergoing left CEA. * Patient is on Coumadin. Coumadin was held today because of pacemaker placement. INR subtherapeutic at 1.5 as of today. PTT 54.2. Continue aspirin 81 mg. * CTA head and neck reveals short segment occlusion or critical stenosis proximal left ICA. Suspect severe right proximal ICA stenosis. No intracranial aneurysm. * Lipid panel with cholesterol 233, LDL 139, HDL 67 and triglycerides 137. Continue high-dose Lipitor 80 mg. * Hemoglobin A1c 5.0.
[2021-03-19 08:37] LABS: INR 1.2 (<1.2); Prothrombin Time 12.6 sec (9.0-12.0)
[2021-03-19 08:41] LABS: Calcium 8.9 mg/dL (8.4-10.2); Potassium 4.8 mmol/L (3.5-5.1)
--- NOTE | 2021-03-19 09:21 | XR ---
EXAMINATION TYPE: XR chest 2V DATE OF EXAM: 03/19/2021 COMPARISON: Chest x-ray 03/18/2021, CT chest 03/03/2021 HISTORY: Lead placement check TECHNIQUE: Frontal and lateral views of the chest are obtained. FINDINGS: Patient is post median sternotomy. Cardiac mediastinal silhouette is stable. There is prom inence of interstitium and central vascularity. Pacemaker is unchanged. No evident pneumothorax or pl eural effusion. IMPRESSION: Correlate for possible interstitial edema. There is underlying COPD and interstitial jasmin g disease.
--- NOTE | 2021-03-19 09:57 | P.PCN ---
Date of Procedure: 03/19/21 Preoperative Diagnosis: Intermittent complete AV block associated with syncope. Atrial fibrillation Postoperative Diagnosis: The same Procedure(s) Performed: Dual-chamber permanent pacemaker implantation Description of Procedure: HISTORY: This is a 80-year-old gentleman was admitted to the hospital with recurrent episodes of syncope. After prolonged monitoring, patient was found to have episodes of complete A-V dissociation associated symptoms. Patient is advised to have dual-chamber permanent pacemaker implantation. CONSENT:I have discussed the risks, benefits and alternative therapies for the above-mentioned procedure and for both sedation/analgesia as well as necessary blood product administration, if indicated, as they pertain to this patient. The patient has indicated understanding and acceptance of the risks and procedures discussed. PROCEDURE: Patient was brought to the lab in a fasting state. Patient was prepped and draped in the usual fashion. Patient was given IV sedation with fentanyl and Versed. The skin below the left clavicle was infiltrated with lidocaine. An incision was made parallel to deltopectoral groove was deepened until the pectoral fascia was exposed. A pocket was created by blunt dissection and cautery. Axillary venography was performed to delineate the course of the axillary vein. 2 sticks were performed into extrathoracic portion of the axillary vein and 2 sheaths were advanced over the guidewires and left in subclavian vein. Conscious Sedation: Versed 3 mg Fentanyl. 50 g and also Dilaudid 1 mg Duration 60 minutes LEADS: ATRIAL:. This is manufactured by [employer]. Model number is 5076-52. The serial number is [id number] VENTRICULAR: This is manufactured by [employer]. Model number is 5076-58. The serial number is [id number] The ventricular lead is maneuvered l with help of a straight and curved stylets into the left ventricle apical region. Satisfactory position was obtained and threshold measurements were made. The atrial lead was then maneuvered into the right atrial appendage. And thresholds were obtained. THRESHOLDS: ATRIUM: Patient was in atrial fibrillation and flutter. Flutter waves are about 1 the impedance was 413. VENTRICLE: The minimum patient threshold is 1.1 at pulse width of 0.4. The impedance is 855 R-wave: 14.1 The leads and pulse generator remained in the pocket after it was washed with antibiotics. Pocket was closed in the usual fashion. The fascia was closed with 2-0 Prolene ,the subcutaneous tissue was closed with 3-0 Prolene and the skin was closed with 4-0 Prolene. PROGRAMMING: MODE: AAIR to DDDR RATE: 60 to 130OUTPUT: Atrium : 3.5 Ventricle: 3.5 FINAL IMPRESSION: #1. Axillary venography #2. Dual-chamber permanent pacemaker implantation COMPLICATIONS: None. PLAN: #1. Axillary venography #2. Dual-chamber permanent pacemaker implantation
--- NOTE | 2021-03-19 11:41 | P.PN ---
Subjective This is a 80-year-old male with a past medical history significant for paroxysmal atrial fibrillation, hypertension, and mechanical aortic valve rep lacement 1998. Patient follows in the office with Dr. Prasad. We have been asked to see the patient in consultation for syncope. Patient was recently seen / secondary to syncopal episode while he was out walking towards some cats. He was worked up with echocardiogram which showed concern of moderate to severe mechanical aortic valve regurgitation with recommendations for possible ROBBY if clinically indicated. This has been monitored in the office. Patient however has noticed increased episodes of falls and lightheadedness. He had felt fairly well since being discharged however had been walking in the kitchen and suddenly he came lightheaded and fell. It appears he lost consciousness. He had difficulty getting up from the ground and therefore called EMS. EMS noted the patient EKG showing sinus bradycardia with heart rates in the 30s. It does appear there was a transition of somewhat slower heart rates for the first half of the EKG and then sinus bradycardia for the second half with some irregularity. There is no clear A-V dissociation and does not appear to be any P waves buried, no clear-cut evidence of high degree AV block. He has had workup with carotid ultrasound showing concern of left internal carotid artery stenosis. EKG shows sinus rhythm with left bundle branch block, first-degree AV block. He denies any shortness breath or chest pain. He admits to some back pain where he fell. He does admit to some episodes of feeling lightheaded however predominantly has been doing fairly well at home over the past week and a half. 03/18/2021 Patient seen and examined sitting up in bed in no acute distress. He complains of ongoing weakness and fatigue. He underwent permanent pacemaker implantation yesterday. [employer] collections representative at the bedside and device is functioning appropriately. Site with dressing in place. Sling to the left arm. He denies symptoms of chest pain, shortness of breath, dizziness or palpitations. Blood pressure 124/56 heart rate 61 afebrile maintaining oxygen saturation on room air. Laboratory data reviewed, INR 1.2, sodium 138, potassium 4.8 and creatinine 1.17. Chest x-ray reveals underlying COPD and interstitial lung d isease with no pneumothorax and pacemaker in place. GENERAL: Well-appearing, well-nourished and in no acute distress. NECK: Supple without JVD or thyromegaly. Obese. LUNGS: Breath sounds clear to auscultation bilaterally. Respiration equal and unlabored. No wheezes, rales or rhonchi. HEART: Regular rate and rhythm with soft mechanical click at the base, no rubs or gallops. S1 and S2 heard. EXTREMITIES: Normal range of motion, no edema. No clubbing or cyanosis. Peripheral pulses intact. ASSESSMENT Syncope, recurrent Complete heart block Mechanical aortic valve replacement, 1998 maintained on Coumadin with aortic insufficiency Subtherapeutic INR on admission Pneumonia, right lower lobe. Pulmonary following on IV antibiotics. Paroxysmal atrial fibrillation Peripheral vascular disease status post right carotid endarterectomy Hypertension PLAN Continue daily coumadin, no heparin bridging today. However, if his INR remains sub therapeutic tomorrow we will initiate heparin infusion with no bolus to bridge or lovenox if he will be transferred to ECF. Nurse Practitioner note has been reviewed, I agree with a documented findings and plan of care. Patient was seen and examined. Objective - Vital Signs Vital signs: Vital Signs Temp 97.7 F 03/19/21 08:10 Pulse 61 03/19/21 08:10 Resp 18 03/19/21 09:00 BP 124/56 03/19/21 09:00 Pulse Ox 94 L 03/19/21 09:00 Intake & Output 03/18/21 03/19/21 03/19/21 18:59 06:59 18:59 Intake Total 896.667 Output Total 500 1 Balance 396.667 -1 Weight 101.8 kg 102.6 kg Intake: IV 150 Intake, IV Titration 206.667 Amount Heparin Sod,Pork in 0.45% 206.667 NaCl 25,000 unit In 0.45 % NaCl 1 250ml.bag @ 9. 6154 UNITS/KG/HR 10 mls/ hr IV .Q24H [facility] Rx#: [id number] Oral 540 Output: Urine 500 Stool 1 Other: Voiding Method Urinal Urinal Urinal # Voids 1 # Bowel Movements 1 - Labs CBC & Chem 7: 03/18/21 07:49 03/19/21 07:55 Labs: Abnormal Lab Results - Last 24 Hours (Table) 03/19/21 03/19/21 Range/Units 07:55 07:55 PT 12.6 H (9.0-12.0) sec INR 1.2 H (<1.2) BUN 31 H (9-20) mg/dL Glucose 113 H (74-99) mg/dL
--- NOTE | 2021-03-19 17:14 | P.PN ---
Subjective Progress Note Date: 03/19/21 Principal diagnosis: Right lower lobe pneumonia Extensive history of smoking and nicotine use likely has severe COPD to be evaluated further outpatient basis Sleep disorder breathing and sleep apnea patient needs to be evaluated outpatient basis for sleep study Left internal carotid artery stenosis with symptoms History of aortic valve replacement 03/19/2021, patient seen eval examined during the rounds labs reviewed medications reviewed care plan discussed, respiratory status remains stable patient remains on room air, discussed with him about evaluation and treatment for sleep disorder breathing and sleep apnea, also discussed with the right lower lobe pneumonia for now on IV antibiotics hopefully next 24-48 hours will be changed to a by mouth like Augmentin 875 2 times a day, patient is status post pacemaker doing well 03/18/2021, patient seen eval examined during the rounds labs reviewed medications reviewed care plan discussed, respiratory status remains stable, chest x-ray performed yesterday WAS stable, patient is ROM air intermittent cough is present which is dry and nonproductive, continued to get workup and evaluation for syncope, patient is noted to have a complete heart block for pacemaker insertion 03/17/2021, patient seen eval examined during the rounds labs reviewed medications reviewed care plan discussed, respiratory status remains stable, still have intermittent cough is present denies any chest pain vascular surgery and cardiovascular services along with neurology have been evaluating the patient, patient remains on broad-spectrum antibiotics with Zosyn tolerating well, last chest was performed this morning overall remains stable 03/16/2021, patient sitting upright in the chair breathing comfortably he is still of ongoing cough, patient remains on broad-spectrum antibiotics being eval for left internal carotid artery stenosis, patient is being evaluated for surgical intervention, respiratory status is relatively more stable, patient likely will go to rehab, however feel that patient should get a sleep study and the evaluation for COPD prior to surgery as well chest x-ray performed today shows improvement in infiltrates suggestive of resolving pneumonia This is a 80-year-old male came into the hospital with recurrent syncopal episode, admitted chest x-ray revealed infiltrate consult is requested for pneumonia, patient has a prior history of atrial fibrillation also has history of the hypertension 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 about 21 years ago, he shouldn't has long-standing history of smoking and nicotine use smokes 2 packs a day lately have cut down, and was admitted into hospital with recurrent syncopal episode, workup and evaluation noted to have significant restenosis over 80% and left internal carotid, it appears that patient very well have a aspiration episode developed right lower lobe pneumonia, patient also has history of the shortness of breath off and on suggestive of COPD, also have a history of snoring likely a sleep disorder breathing and sleep apnea as well, currently patient is being treated with broad-spectrum antibiotics, anticoagulation with Coumadin, Objective - Vital Signs Vital signs: Vital Signs Temp 97.6 F 03/19/21 16:02 Pulse 70 03/19/21 17:00 Resp 16 03/19/21 17:00 BP 134/66 03/19/21 16:02 Pulse Ox 94 L 03/19/21 17:00 Intake & Output 03/18/21 03/19/21 03/19/21 18:59 06:59 18:59 Intake Total 896.667 480 Output Total 500 1 600 Balance 396.667 -1 -120 Weight 101.8 kg 102.6 kg Intake: IV 150 Intake, IV Titration 206.667 Amount Heparin Sod,Pork in 0.45% 206.667 NaCl 25,000 unit In 0.45 % NaCl 1 250ml.bag @ 9. 6154 UNITS/KG/HR 10 mls/ hr IV .Q24H [facility] Rx#: [id number] Oral 540 480 Output: Urine 500 600 Stool 1 Other: Voiding Method Urinal Urinal Urinal # Voids 1 # Bowel Movements 1 - Exam - Constitutional General appearance: average body habitus, cooperative, disheveled - EENT Eyes: PERRLA Ears: bilateral: normal - Neck Carotids: bilateral: upstroke normal Thyroid: bilateral: normal size - Respiratory Respiratory: bilateral: diminished - Cardiovascular Rhythm: irregularly irregular Heart sounds: normal: S1, S2 - Gastrointestinal General gastrointestinal: normal bowel sounds, soft - Integumentary Integumentary: normal turgor - Neurologic Neurologic: CNII-XII intact - Musculoskeletal Musculoskeletal: gait normal, generalized weakness, strength equal bilaterally - Psychiatric Psychiatric: A&O x's 3, appropriate affect, intact judgment & insight - Labs CBC & Chem 7: 03/18/21 07:49 03/19/21 07:55 Labs: Abnormal Lab Results - Last 24 Hours (Table) 03/19/21 03/19/21 Range/Units 07:55 07:55 PT 12.6 H (9.0-12.0) sec INR 1.2 H (<1.2) BUN 31 H (9-20) mg/dL Glucose 113 H (74-99) mg/dL Assessment and Plan Assessment: Right lower lobe pneumonia, clinically and radiographically continued to improve Complete heart block status post permanent pacemaker Extensive history of smoking and nicotine use likely has severe COPD to be evaluated further outpatient basis Sleep disorder breathing and sleep apnea patient needs to be evaluated outpatie nt basis for sleep study Left internal carotid artery stenosis with symptoms History of aortic valve replacement Plan: Continue antibiotics, can be changed to oral over next 24 hours Status post pacemaker insertion by cardiovascular services Deep breathing sense incentive spirometry Follow clinical course closely Repeat chest x-ray reviewed Further plan of care as per clinical response of patient and likely as outpatient setting Workup and evaluation of stenosed left internal carotid in progress by vascular surgery Time with Patient: Greater than 30
[2021-03-19] MEDS ORDERED: WARFARIN 5 MG TAB PO ONE (18:00)
[2021-03-19] MEDS: ATORVASTATIN 80 MG TAB PO SCH (19:50)
[2021-03-19] MEDS: ALPRAZolam 0.25 MG TAB PO PRN (19:50)
--- NOTE | 2021-03-19 23:29 | P.PN ---
Subjective Progress Note Date: 03/19/21 Principal diagnosis: Syncope Cardiac dysrhythmias community acquired pneumonia 80-year-old [place] was admitted to the hospital for possible cardiac dysrhythmia with associated syncopal episodes. Patient was also being treated for community acquired pneumonia. He has significant medical history of Aortic valve replacement, hypertension, hyperlipidemia,Degenerative joint disease, carotid stenosis, and multiple comorbidities. Patient has multiple consults due to comorbidities and severity of illness. March 16, 2021, 0700 Evaluated patient this a.m. resting comfortably in chair, patient continues to endorse generalized weakness, intermittent dizziness, and neck discomfort. Ronan sheets denies fever, chills, shortness of breath, palpitations, chest pain, abdominal pain, nausea or vomiting or diarrhea. Plan for patient to go to [facility] rehab for regaining of strength, for carotid intervention for severe stenosis. Pending a.m. labs and diagnostic testing. March 17, 2021 evaluated patient this a.m. resting comfortably in bed, patient continues to endorse generalized weakness and intermittent dizziness. March 16 to and 1800 patient had a episode of severe dizziness with associated heart rate of 35 appeared to be AV block, cardiology was notified patient was placed on patient has as needed. No episodes were noted throughout the night. Elevated potassium was treated with calcium gluconate, dextrose, insulin, and sodium bicarb. Awaiting recommendations from cardiology for possible pacemaker placement. March 18, 2021 see hospitalist coverage notes March 19, 2021 evaluated patient resting comfortably in bed this a.m. Patient status post permanent pacemaker. patient denies any recent dizziness, lightheadedness, and increased strength since permanent pacemaker has been placed. Sub therapeutic INR currently for mechanical valve, may have to bridge to heparin or Lovenox to be discharged to shelter facility for strength and conditioning for outpatient carotid intervention. Awaiting and consultants for signoff for discharge to shelter facility Objective - Vital Signs Vital signs: Vital Signs Temp 97.9 F 03/19/21 19:49 Pulse 70 03/19/21 17:00 Resp 16 03/19/21 19:49 BP 134/66 03/19/21 16:02 Pulse Ox 95 03/19/21 19:49 Intake & Output 03/19/21 03/19/21 03/20/21 06:59 18:59 06:59 Intake Total 720 Output Total 1 600 Balance -1 120 Weight 102.6 kg Intake: Oral 720 Output: Urine 600 Stool 1 Other: Voiding Method Urinal Urinal Urinal # Voids 1 - Constitutional General appearance: Present: cooperative - EENT Eyes: Present: EOMI, PERRLA - Neck Neck: Present: normal ROM Thyroid: bilateral: normal size - Respiratory Respiratory: bilateral: CTA (Anterior and posterior) - Cardiovascular Details: Paste Heart rate: 74 Rhythm: regular Heart sounds: normal: S1, S2 - Peripheral pulses femoral Peripheral Pulses: bilateral: Normal radial pulse Peripheral Pulses: bilateral: Normal - Gastrointestinal General gastrointestinal: Present: normal bowel sounds - Integumentary Integumentary: Present: normal turgor - Neurologic Neurologic: Present: CNII-XII intact - Musculoskeletal Musculoskeletal: Present: generalized weakness - Psychiatric Psychiatric: Present: A&O x's 3, appropriate affect, intact judgment & insight - Allied health notes Allied health notes reviewed: nursing - Labs CBC & Chem 7: 03/18/21 07:49 03/19/21 07:55 Labs: Abnormal Lab Results - Last 24 Hours (Table) 03/19/21 03/19/21 Range/Units 07:55 07:55 PT 12.6 H (9.0-12.0) sec INR 1.2 H (<1.2) BUN 31 H (9-20) mg/dL Glucose 113 H (74-99) mg/dL - Imaging and Cardiology Chest x-ray: image reviewed Assessment and Plan Assessment: Syncope, possible cardiac dysrhythmia acute transient ischemic attack right lower lobe pneumonia, community acquired pneumonia Left carotid stenosis with suspected severe right proximal ICA stenosis Status post permanent pacemaker Leukocytosis Hypertension hyperlipidemia Degenerative disc disease history of aortic valve replacement Mixed anxiety and depression History of prostate cancer Left bundle branch block and EKG DNR Plan: Syncope, continue for cardiac dysrhythmias, Status post permanent pacemaker no offense noted throughout the night or in the a.m. acute transient ischemic attack, continue to monitor Neurological status, and consultation with neurology for recommendations and treatment plan community acquired pneumonia, continue antibiotic therapy, Able to bridge to oral antibiotics carotid stenosis, consultation with vascular for recommendations and treatment plan continue medications as prescribed, continue to monitor vital signs and diagnostics continue medical management further recommendations to come based on patient's clinical status Hopeful discharge to shelter facility within 24 hours for strength and conditioning Time with Patient: Greater than 30
[2021-03-20] MEDS: HYDROcodone/APAP 5-325MG 1 EACH TAB PO PRN ×2 (01:08→15:43)
[2021-03-20] MEDS: SODIUM CHLORIDE 0.9% 1,000 ML IV SCH (04:19)
[2021-03-20] MEDS: PIPERACILLIN-TAZOBACTAM 3.375 GM in SODIUM CHLORIDE 0.9% 100 ML IVPB SCH ×2 (05:27→11:56)
[2021-03-20] MEDS: PANTOPRAZOLE 40 MG TABLET PO SCH (06:27)
[2021-03-20 08:44] VITALS: TEMP 97.6
[2021-03-20] MEDS: CHOLECALCIFEROL 25 MCG (1000 IU) TABLET PO SCH (08:44)
[2021-03-20] MEDS: predniSONE 10 MG TAB PO SCH (08:44)
[2021-03-20] MEDS: ASCORBIC ACID 500 MG TAB PO SCH (08:44)
[2021-03-20] MEDS: amLODIPine 5 MG TAB PO SCH (08:44)
[2021-03-20] MEDS: ASPIRIN 81 MG PO SCH (08:44)
[2021-03-20 08:53] LABS: INR 1.3 (<1.2); Prothrombin Time 13.7 sec (9.0-12.0)
[2021-03-20] MEDS ORDERED: HEPARIN SODIUM 1,000 UN/ML (10ML VL) IV PRN (10:50)
[2021-03-20] MEDS ORDERED: HEPARIN SOD,PORK IN 0.45% NACL 25,000 UNIT in 0.45% NACL 1 250ML.BAG IV SCH (11:00)
--- NOTE | 2021-03-20 12:05 | P.PN ---
Subjective Progress Note Date: 03/20/21 Principal diagnosis: Right lower lobe pneumonia Extensive history of smoking and nicotine use likely has severe COPD to be evaluated further outpatient basis Sleep disorder breathing and sleep apnea patient needs to be evaluated outpatient basis for sleep study Left internal carotid artery stenosis with symptoms History of aortic valve replacement 03/20/2021, patient seen eval examined during the rounds labs reviewed medications reviewed care plan discussed, respiratory status remains stable, denies any chest pain breathing comfortably, 03/19/2021, patient seen eval examined during the rounds labs reviewed medications reviewed care plan discussed, respiratory status remains stable patient remains on room air, discussed with him about evaluation and treatment for sleep disorder breathing and sleep apnea, also discussed with the right lower lobe pneumonia for now on IV antibiotics hopefully next 24-48 hours will be changed to a by mouth like Augmentin 875 2 times a day, patient is status post pacemaker doing well 03/18/2021, patient seen eval examined during the rounds labs reviewed medications reviewed care plan discussed, respiratory status remains stable, chest x-ray performed yesterday WAS stable, patient is ROM air intermittent cough is present which is dry and nonproductive, continued to get workup and evaluation for syncope, patient is noted to have a complete heart block for pacemaker insertion 03/17/2021, patient seen eval examined during the rounds labs reviewed medications reviewed care plan discussed, respiratory status remains stable, still have intermittent cough is present denies any chest pain vascular surgery and cardiovascular services along with neurology have been evaluating the patient, patient remains on broad-spectrum antibiotics with Zosyn tolerating well, last chest was performed this morning overall remains stable 03/16/2021, patient sitting upright in the chair breathing comfortably he is still of ongoing cough, patient remains on broad-spectrum antibiotics being eval for left internal carotid artery stenosis, patient is being evaluated for surgical intervention, respiratory status is relatively more stable, patient likely will go to rehab, however feel that patient should get a sleep study and the evaluation for COPD prior to surgery as well chest x-ray performed today shows improvement in infiltrates suggestive of resolving pneumonia This is a 80-year-old male came into the hospital with recurrent syncopal episode, admitted chest x-ray revealed infiltrate consult is requested for pneumonia, patient has a prior history of atrial fibrillation also has history of the hypertension 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 about 21 years ago, he shouldn't has long-standing history of smoking and nicotine use smokes 2 packs a day lately have cut down, and was admi tted into hospital with recurrent syncopal episode, workup and evaluation noted to have significant restenosis over 80% and left internal carotid, it appears that patient very well have a aspiration episode developed right lower lobe pneumonia, patient also has history of the shortness of breath off and on suggestive of COPD, also have a history of snoring likely a sleep disorder breathing and sleep apnea as well, currently patient is being treated with broad-spectrum antibiotics, anticoagulation with Coumadin, Objective - Vital Signs Vital signs: Vital Signs Temp 97.6 F 03/20/21 08:42 Pulse 62 03/20/21 09:00 Resp 18 03/20/21 09:00 BP 111/57 03/20/21 08:42 Pulse Ox 96 03/20/21 09:00 Intake & Output 03/19/21 03/20/21 03/20/21 18:59 06:59 18:59 Intake Total 720 Output Total 600 800 Balance 120 -800 Weight 103.7 kg Intake: Oral 720 Output: Urine 600 800 Other: Voiding Method Urinal Urinal Urinal # Bowel Movements 1 - Exam - Constitutional General appearance: average body habitus, cooperative, disheveled - EENT Eyes: PERRLA Ears: bilateral: normal - Neck Carotids: bilateral: upstroke normal Thyroid: bilateral: normal size - Respiratory Respiratory: bilateral: diminished - Cardiovascular Rhythm: irregularly irregular Heart sounds: normal: S1, S2 - Gastrointestinal General gastrointestinal: normal bowel sounds, soft - Integumentary Integumentary: normal turgor - Neurologic Neurologic: CNII-XII intact - Musculoskeletal Musculoskeletal: gait normal, generalized weakness, strength equal bilaterally - Psychiatric Psychiatric: A&O x's 3, appropriate affect, intact judgment & insight - Labs CBC & Chem 7: 03/18/21 07:49 03/19/21 07:55 Labs: Abnormal Lab Results - Last 24 Hours (Table) 03/20/21 Range/Units 07:49 PT 13.7 H (9.0-12.0) sec INR 1.3 H (<1.2) Assessment and Plan Assessment: Right lower lobe pneumonia, clinically and radiographically continued to improve Complete heart block status post permanent pacemaker Extensive history of smoking and nicotine use likely has severe COPD to be eval uated further outpatient basis Sleep disorder breathing and sleep apnea patient needs to be evaluated outpatient basis for sleep study Left internal carotid artery stenosis with symptoms History of aortic valve replacement Plan: Continue antibiotics, can be changed to oral over next 24 hours Status post pacemaker insertion by cardiovascular services Deep breathing sense incentive spirometry Follow clinical course closely Repeat chest x-ray reviewed Further plan of care as per clinical response of patient and likely as outpatient setting Workup and evaluation of stenosed left internal carotid in progress by vascular surgery Time with Patient: Greater than 30
[2021-03-20 12:06] VITALS: BP 145/68; PULSE 70; RESP 16
--- NOTE | 2021-03-20 13:21 | P.PN ---
Subjective Progress Note Date: 03/20/21 HISTORY OF PRESENT ILLNESS: This is a 80-year-old male with a past medical history significant for paroxysmal atrial fibrillation, hypertension, and mechanical aortic valve replacement 1998. Patient follows in the office with Dr. Prasad. We have been asked to see the patient in consultation for syncope. Patient was recently seen 03/03 secondary to syncopal episode while he was out walking towards some cats. He was worked up with echocardiogram which showed concern of moderate to severe mechanical aortic valve regurgitation with recommendations for possible ROBBY if clinically indicated. This has been monitored in the office. Patient however has noticed increased episodes of falls and lightheadedness. He had felt fairly well since being discharged however had been walking in the kitchen and suddenly he came lightheaded and fell. It appears he lost consciousness. He had difficulty getting up from the ground and therefore called EMS. EMS noted the patient EKG showing sinus bradycardia with heart rates in the 30s. It does appear there was a transition of somewhat slower heart rates for the first half of the EKG and then sinus bradycardia for the second half with some irregularity. There is no clear A-V dissociation and does not appear to be any P waves buried, no clear-cut evidence of high degree AV block. He has had workup with carotid ultrasound showing concern of left internal carotid artery stenosis. EKG shows sinus rhythm with left bundle branch block, first-degree AV block. He denies any shortness breath or chest pain. He admits to some back pa in where he fell. He does admit to some episodes of feeling lightheaded however predominantly has been doing fairly well at home over the past week and a half. 03/18/2021 Patient seen and examined sitting up in bed in no acute distress. He complains of ongoing weakness and fatigue. He underwent permanent pacemaker implantation yesterday. [employer] construction sales representative at the bedside and device is functioning appropriately. Site with dressing in place. Sling to the left arm. He denies symptoms of chest pain, shortness of breath, dizziness or palpitations. Blood pressure 124/56 heart rate 61 afebrile maintaining oxygen saturation on room air. Laboratory data reviewed, INR 1.2, sodium 138, potassium 4.8 and creatinine 1.17. Chest x-ray reveals underlying COPD and interstitial lung disease with no pneumothorax and pacemaker in place. 03/20/2021 Patient examined this morning at the bedside. Patient denies chest pain or pressure. Denies shortness of breath. Sling to left arm noted. Dressing to left chest intact with no hematoma noted. Patient was resumed on Coumadin yesterday. INR 1.3. PHYSICAL EXAM: VITAL SIGNS: Reviewed. GENERAL: Well-developed in no acute distress. NECK: Supple. No JVD or thyromegaly LUNGS: Respirations even and unlabored. Lungs essentially clear to auscultation bilaterally. HEART: Regular rate and rhythm. S1 and S2 heard. EXTREMITIES: Normal range of motion. No clubbing or cyanosis. Peripheral pulses intact. No lower extremity edema ASSESSMENT: Syncope, recurrent Complete heart block Mechanical aortic valve replacement, 1998 maintained on Coumadin with aortic insufficiency Subtherapeutic INR on admission Pneumonia, right lower lobe. Pulmonary following on IV antibiotics. Paroxysmal atrial fibrillation Peripheral vascular disease status post right carotid endarterectomy Hypertension PLAN: Continue current cardiac medications Continue Coumadin Monitor INR Begin IV heparin for bridging until INR is therapeutic If patient is being discharge to ECF, may bridge with Lovenox Further recommendations pending patient's course Nurse practitioner note has been reviewed by physician. Signing provider agrees with the documented findings, assessment, and plan of care. Objective - Vital Signs Vital signs: Vital Signs Temp 97.6 F 03/20/21 12:05 Pulse 70 03/20/21 12:05 Resp 16 03/20/21 12:05 BP 145/68 03/20/21 12:05 Pulse Ox 96 03/20/21 12:05 Intake & Output 03/19/21 03/20/21 03/20/21 18:59 06:59 18:59 Intake Total 720 Output Total 600 800 225 Balance 120 -800 -225 Weight 103.7 kg Intake: Oral 720 Output: Urine 600 800 225 Other: Voiding Method Urinal Urinal Urinal # Bowel Movements 1 - Labs CBC & Chem 7: 03/18/21 07:49 03/19/21 07:55 Labs: Abnormal Lab Results - Last 24 Hours (Table) 03/20/21 Range/Units 07:49 PT 13.7 H (9.0-12.0) sec INR 1.3 H (<1.2)
--- NOTE | 2021-03-20 15:08 | P.DS ---
Providers Date of admission: 03/13/21 14:01 Attending physician: Coleman Nugent Consults: 03/13/21 14:00 Consult Physician Routine Consulting Provider: Bill Mckeon Consult Reason/Comments: syncope Do you want consulting provider notified?: Yes 03/13/21 21:05 Consult Physician Routine Consulting Provider: Sylevster Campos Consult Reason/Comments: tia? Do you want consulting provider notified?: Yes 03/14/21 09:44 Consult Physician Routine Consulting Provider: Roosevelt Greco Consult Reason/Comments: fracture C6 spinous Do you want consulting provider notified?: Yes 03/14/21 17:11 Consult Physician Routine Consulting Provider: Arturo Walker Consult Reason/Comments: pneumonia Do you want consulting provider notified?: Yes 03/16/21 18:55 Consult Physician Urgent Consulting Provider: Nain Encinas Consult Reason/Comments: severe carotid stenosis Do you want consulting provider notified?: Yes Primary care physician: Coleman Nugent Hospital Course: The subsequently found to have a right lower lobe pneumonia for which he was receiving antimicrobial therapy with Augmentin. Patient underwent dual-chamber permanent pacemaker implantation on 03/19/21. He is chronically on Coumadin rel ated to mechanical aortic valve, he was placed on IV heparin in anticipation of surgery, INR which was subtherapeutic on admission is currently subtherapeutic. Plan is for him to be discharged, bridge with Lovenox until INR therapeutic. Constitutional: Denied any fatigue denied any fever. Cardio vascular: denied any chest pain, palpitations Gastrointestinal denied any nausea vomiting Pulmonary: Denied any shortness of breath cough Neurologic denied any new focal deficits PHYSICAL EXAMINATION: GENERAL: The patient is alert and oriented x3, not in any acute distress. Well developed, well nourished. HEENT: Pupils are round and equally reacting to light. EOMI. No scleral icterus. No conjunctival pallor. Normocephalic, atraumatic. No pharyngeal erythema. No thyromegaly. CARDIOVASCULAR: S1 and S2 present. No murmurs, rubs, or gallops. PULMONARY: Chest is clear to auscultation, no wheezing or crackles. ABDOMEN: Soft, nontender, nondistended, normoactive bowel sounds. No palpable organomegaly. MUSCULOSKELETAL: No joint swelling or deformity. EXTREMITIES: No cyanosis, clubbing, or pedal edema. NEUROLOGICAL: Gross neurological examination did not reveal any focal deficits. SKIN: There are multiple bruises because of Coumadin. Syncope: Related to be seconded to complete heart block status post permanent kelli on 03/19: -Right lower lobe pneumonia, complete course antimicrobial therapy with Augmentin -Mechanical aortic valve On long-term anticoagulation with Coumadin. INR subtherapeutic, bridging with Lovenox -Left carotid stenosis: Follow-up with vascular surgery -Hypertension -Hyperlipidemia -Subtherapeutic INR -Aortic stenosis with history of vertigo well replacement -History of prostate cancer. Patient Condition at Discharge: Stable Plan - Discharge Summary Discharge Rx Participant: No New Discharge Prescriptions: No Action Metoprolol Tartrate [Lopressor] 50 mg PO BID Amiodarone [Cordarone] 200 mg PO DAILY amLODIPine [Norvasc] 5 mg PO BID HYDROcodone/APAP 5-325MG [[place] 5-325] 1 tab PO BID PRN PRN Reason: Pain Ascorbic Acid [Vitamin C] 500 mg PO BID #20 tab Cefuroxime Axetil [Ceftin] 500 mg PO BID 4 Days #8 tab Cholecalciferol [Vitamin D3 (25 Mcg = 1000 Iu)] 50 mcg PO DAILY #20 tablet Warfarin [Coumadin] 2.5 mg PO DIRECTED Warfarin [Coumadin] 5 mg PO DIRECTED predniSONE See Taper PO DAILY Discharge Medication List Metoprolol Tartrate [Lopressor] 50 mg PO BID 11/18/16 [History] Amiodarone [Cordarone] 200 mg PO DAILY 05/14/19 [History] HYDROcodone/APAP 5-325MG [[place] 5-325] 1 tab PO BID PRN 05/14/19 [History] amLODIPine [Norvasc] 5 mg PO BID 05/14/19 [History] Ascorbic Acid [Vitamin C] 500 mg PO BID #20 tab 03/05/21 [Rx] Cefuroxime Axetil [Ceftin] 500 mg PO BID 4 Days #8 tab 03/05/21 [Rx] Cholecalciferol [Vitamin D3 (25 Mcg = 1000 Iu)] 50 mcg PO DAILY #20 tablet 03/05/21 [Rx] Warfarin [Coumadin] 2.5 mg PO DIRECTED 03/13/21 [History] Warfarin [Coumadin] 5 mg PO DIRECTED 03/13/21 [History] predniSONE See Taper PO DAILY 03/13/21 [History] Follow up Appointment(s)/Referral(s): Coleman Nugent MD [Primary Care Provider] - 1-2 days Vasyl Macario DO [Doctor of Osteopathic Medicine] - 1 Week Roosevelt Greco DO [Doctor of Osteopathic Medicine] - 2 Weeks Arturo Walker MD [STAFF PHYSICIAN] - 1 Week
[2021-03-20] MEDS ORDERED: WARFARIN 5 MG TAB PO ONE (18:00)
[2021-03-20] MEDS ORDERED: AMOXIC-POT CLAV 500-125 MG 1 EACH TAB PO SCH (21:00)
--- NOTE | 2021-03-22 11:13 | P.PN ---
Subjective Progress Note Date: 03/19/21 03/19/2021: Patient was seen for a follow-up. Patient denies any new focal symptoms. Telemetry monitoring showing paced rhythm, with sinus rhythm. 03/18/2021: Patient is laying comfortably in the bed. No further symptoms. No stroke TIA symptoms. Patient had undergone pacemaker placement today. 03/17/2021: Patient is sitting in the recliner, offers no complaints. Denies any new focal symptoms. No dizziness. Telemetry monitoring showing sinus rhythm with bundle branch block. 03/16/2021 patient was seen for a follow-up. Patient denies any new focal symptoms. Denies any headache, problem with the vision, hoarseness, sore throat. Denies any numbness tingling focal weakness, slurred speech or facial droop. No further syncopal spells. 03/15/2021 Patient was seen for a follow-up. Patient seen by Dr. Sylvester Campos yesterday. Please refer to his note for details. Patient came to the hospital for 3 episodes of syncope. The first one occurred when he slipped and fell backwards. He had to call the ambulance. The other 2 were more syncope, and occurred at home. With one of them he was at the kitchen table making coffee, went to the sink and then became dizzy lightheaded and passed out. He was out for only 5 seconds. He was standing all these 3 times. Patient denies any numbness tingling focal weakness, problem with the vision, any slurred speech or strokelike symptoms. Telemetry monitoring showing sinus rhythm, with sinus bradycardia. Objective - Vital Signs Vital signs: Vital Signs Temp 97.9 F 03/19/21 19:49 Pulse 70 03/19/21 17:00 Resp 16 03/19/21 19:49 BP 134/66 03/19/21 16:02 Pulse Ox 95 03/19/21 19:49 Intake & Output 03/19/21 03/19/21 03/20/21 06:59 18:59 06:59 Intake Total 720 Output Total 1 600 Balance -1 120 Weight 102.6 kg Intake: Oral 720 Output: Urine 600 Stool 1 Other: Voiding Method Urinal Urinal Urinal # Voids 1 - Exam Patient's mental status, speech and language functions are normal. Cranial nerves are normal. Visual minor are full on confrontation. Muscle strength is normal in the arms and legs. No ataxia. No pronator drift. Sensations equal. - Labs CBC & Chem 7: 03/18/21 07:49 03/19/21 07:55 Labs: Abnormal Lab Results - Last 24 Hours (Table) 03/19/21 03/19/21 Range/Units 07:55 07:55 PT 12.6 H (9.0-12.0) sec INR 1.2 H (<1.2) BUN 31 H (9-20) mg/dL Glucose 113 H (74-99) mg/dL Assessment and Plan Assessment: * Syncopal spells, likely from complete heart block. Patient is status post pacemaker placement today. No definitive clinical evidence of TIA, with lack of any focal symptoms. However TIA is a possibility from bilateral severe carotid stenosis. * Bilateral ICA stenosis, very severe on the left, severe on the right. * Paroxysmal atrial fibrillation, on Coumadin * History of aortic stenosis with mechanical aortic valve replacement 1998. * C6 spinous process fracture, orthopedic surgery on board. No surgical intervention needed. * History of right carotid endarterectomy 25 years ago. * History of aortic valve replacement. * Right lower lobe pneumonia, history of COPD * Sleep-disordered breathing. Plan: * Patient is neurologically stable. Examination is nonfocal. Patient is status post pacemaker placement. * EEG 03/15/2021 was mildly abnormal due to background slowing, suggestive of mild encephalopathy. No epileptiform activity was seen. * Patient has been seen by vascular surgery, and have recommended CEA on the left side, as outpatient. Patient will go to subacute rehab first before undergoing left CEA. * Patient is on Coumadin. Patient is back on Coumadin. Patient is also on bridging with Lovenox. INR is 1.3. Continue aspirin 81 mg. * CTA head and neck reveals short segment occlusion or critical stenosis proximal left ICA. Suspect severe right proximal ICA stenosis. No intracranial aneurysm. * Lipid panel with cholesterol 233, LDL 139, HDL 67 and triglycerides 137. Continue high-dose Lipitor 80 mg. * Hemoglobin A1c 5.0. * Neurologically clear for discharge.
== END 2021-03-20 15:57 | DRG 242 ==
LOC: EC 11:37 → 3SCARD 14:01
PROVIDERS: ADMIT Family Medicine; ATTEND Family Medicine
PROC: 0JH606Z Insertion of Pacemaker, Dual Chamber into Chest Subcutaneous Tissue and Fascia, Open Approach (ICD-10-PCS; principal; 2021-03-19)
PROC: 02H63JZ Insertion of Pacemaker Lead into Right Atrium, Percutaneous Approach (ICD-10-PCS; 2021-03-19)
PROC: 02HL3JZ Insertion of Pacemaker Lead into Left Ventricle, Percutaneous Approach (ICD-10-PCS; 2021-03-19)
DX: I44.2 Atrioventricular block, complete (principal); J69.0 Pneumonitis due to inhalation of food and vomit; S12.500A Unspecified displaced fracture of sixth cervical vertebra, initial encounter for closed fracture; J44.0 Chronic obstructive pulmonary disease with (acute) lower respiratory infection; E87.1 Hypo-osmolality and hyponatremia; J84.9 Interstitial pulmonary disease, unspecified; G45.9 Transient cerebral ischemic attack, unspecified; I48.92 Unspecified atrial flutter; I10 Essential (primary) hypertension; M19.90 Unspecified osteoarthritis, unspecified site; N42.9 Disorder of prostate, unspecified; Z20.822 Contact with and (suspected) exposure to COVID-19; F32.9 Major depressive disorder, single episode, unspecified; Z95.2 Presence of prosthetic heart valve; Z80.9 Family history of malignant neoplasm, unspecified; D64.9 Anemia, unspecified; E87.5 Hyperkalemia; Z85.46 Personal history of malignant neoplasm of prostate; I45.89 Other specified conduction disorders; E66.9 Obesity, unspecified; Z66 Do not resuscitate; Z68.35 Body mass index [BMI] 35.0-35.9, adult; I44.7 Left bundle-branch block, unspecified; I65.23 Occlusion and stenosis of bilateral carotid arteries; Z79.899 Other long term (current) drug therapy; Z79.01 Long term (current) use of anticoagulants; Z87.891 Personal history of nicotine dependence; M47.22 Other spondylosis with radiculopathy, cervical region; I48.0 Paroxysmal atrial fibrillation; R00.1 Bradycardia, unspecified; I44.0 Atrioventricular block, first degree; R79.1 Abnormal coagulation profile; T45.515A Adverse effect of anticoagulants, initial encounter; I35.1 Nonrheumatic aortic (valve) insufficiency; F44.4 Conversion disorder with motor symptom or deficit; G47.30 Sleep apnea, unspecified; R06.83 Snoring; M43.22 Fusion of spine, cervical region; M53.82 Other specified dorsopathies, cervical region; E87.6 Hypokalemia; Y92.000 Kitchen of unspecified non-institutional (private) residence as the place of occurrence of the external cause; I73.9 Peripheral vascular disease, unspecified; W01.0XXA Fall on same level from slipping, tripping and stumbling without subsequent striking against object, initial encounter; E78.5 Hyperlipidemia, unspecified; F41.8 Other specified anxiety disorders; Z95.0 Presence of cardiac pacemaker; I35.2 Nonrheumatic aortic (valve) stenosis with insufficiency; R29.6 Repeated falls; Z79.82 Long term (current) use of aspirin
CPT/HCPCS: 33208; 36415; 70450; 70496; 70498; 71045; 71046; 72125; 80048; 80053; 80061; 81003; 83036; 83735; 84100; 84132; 84443; 84484; 85025; 85610; 85730; 87635; 93005; 93270; 93880; 95816; 99285

== ENCOUNTER 2021-04-14 08:00 | Day surgery (SDC) | payer MEDICARE ==
[2021-04-12 14:19] VITALS: BMI 31.4
[~2021-04-14 08:00] MED LIST: SODIUM CHLORIDE 0.9% 1,000 ML IV SCH
[2021-04-14 08:21] VITALS: RESP 18
[2021-04-14] MEDS ORDERED: PROPOFOL 10 MG/ML 20 ML VIAL IV ONE (09:10)
[2021-04-14 09:12] LABS: INR 3.4 (<1.2); Prothrombin Time 32.8 sec (9.0-12.0)
[2021-04-14] MEDS ORDERED: HYDROcodone/APAP 5-325MG 1 EACH TAB PO PRN (09:37)
[2021-04-14 09:44] VITALS: TEMP 98
[2021-04-14] MEDS ORDERED: SODIUM CHLORIDE 0.9% 1,000 ML IV SCH (09:45)
--- NOTE | 2021-04-14 11:02 | CE ---
CARDIAC ELECTROPHYSIOLOGY REPORT PROCEDURE PERFORMED: Cardioversion. INDICATION: Atrial flutter. PROCEDURE: After explaining the procedure to the patient its risks and the complications, his blood pressure, heart rate, O2 saturation was monitored. After obtaining transesophageal echocardiogram and obtaining sedated state per Anesthesia Department, a synchronized biphasic cardioversion using 200 joules was performed with yarsani of normal sinus rhythm. There was no immediate complication. ERIN / VIVIANN: [id number] /
--- NOTE | 2021-04-14 11:02 | ECHOT ---
TRANSESOPHAGEAL ECHOCARDIOGRAM PROCEDURE PERFORMED: ROBBY. INDICATION: Evaluation of left atrial appendage. PROCEDURE: After explaining the procedure to the patient its risks and the complications, his blood pressure, heart rate, O2 saturation was monitored. The throat was sprayed with Cetacaine. He received sedation per Anesthesia Department. Following that, the probe was introduced into the esophagus without difficulties. Images were obtained. Following that, the probe was removed. There was no immediate complication. FINDINGS: There was biatrial enlargement. The left atrial appendage is normal. Left ventricular size and systolic function normal. The mitral valve reveals severe mitral annulus calcification. The aortic valve is a prosthetic aortic valve with normal appearance and movement of the disk. Tricuspid valve is normal. The ascending thoracic aorta revealed mild atherosclerotic changes. No pericardial effusion was noted. Contrast bubble study revealed no shunting across the interatrial septum. Doppler pulse wave and color Doppler obtained and revealed a peak gradient of 21 mmHg with a mean gradient of 14 mmHg across the aortic valve. There was mild aortic regurgitation with moderate to severe mitral and tricuspid regurgitation. The right ventricular systolic pressure was less than 30 mmHg. There was no shunting by color Doppler study. CONCLUSION: 1. Biatrial enlargement with normal appearance of the left atrial appendage. 2. Normal left ventricular size and systolic function. 3. Prosthetic aortic valve with normal appearance and a mean gradient of 14 mmHg with mild aortic regurgitation. 4. Severe mitral anulus calcification with moderate to severe mitral and tricuspid regurgitation and no pulmonary hypertension. 5. No pericardial effusion. 6. No shunting across the interatrial septum. MMODL / IJN: [id number] /
[2021-04-14 11:41] VITALS: BP 160/70; PULSE 69
[2021-04-14] MEDS ORDERED: METOPROLOL TARTRATE 25 MG TAB PO SCH (21:00)
[2021-04-14] MEDS ORDERED: ASCORBIC ACID 500 MG TAB PO SCH (21:00)
[2021-04-14] MEDS ORDERED: amLODIPine 5 MG TAB PO SCH (21:00)
[2021-04-14] MEDS ORDERED: ATORVASTATIN 80 MG TAB PO SCH (21:00)
[2021-04-15] MEDS ORDERED: AMIODARONE 200 MG TAB PO SCH (09:00)
[2021-04-15] MEDS ORDERED: predniSONE 1 MG TAB PO SCH (09:00)
[2021-04-15] MEDS ORDERED: CHOLECALCIFEROL 25 MCG (1000 IU) TABLET PO SCH (09:00)
== END 2021-04-14 11:18 | disposition home or self-care (01) ==
LOC: CATHCVL 08:00
PROVIDERS: ATTEND Internal Medicine Interventional Cardiology
DX: I48.3 Typical atrial flutter (principal); Z95.4 Presence of other heart-valve replacement; I73.9 Peripheral vascular disease, unspecified; Z20.822 Contact with and (suspected) exposure to COVID-19; I08.3 Combined rheumatic disorders of mitral, aortic and tricuspid valves; I10 Essential (primary) hypertension; Z87.891 Personal history of nicotine dependence; Z95.0 Presence of cardiac pacemaker; Z79.01 Long term (current) use of anticoagulants; Z79.899 Other long term (current) drug therapy; Z88.8 Allergy status to other drugs, medicaments and biological substances
CPT/HCPCS: 93312; 93320; 93325; 92960; 85610; 87635; J2704

== ENCOUNTER 2021-06-11 12:44 | Inpatient (IN) | payer MEDICARE ==
[2021-06-11] MEDS ORDERED: IPRATROPIUM-ALBUTEROL 3 ML NEB INHALATION STA (13:24)
--- NOTE | 2021-06-11 13:53 | ED ---
SOB HPI - General Chief Complaint: Shortness of Breath Stated Complaint: Weakness Time Seen by Provider: 06/11/21 13:00 Source: patient, RN notes reviewed Mode of arrival: wheelchair Limitations: no limitations - History of Present Illness Initial Comments: This is a 81-year-old male who presents with complaints of shortness of breath and exertional dyspnea. He's had a cough he is recent treated for a sinus infection with antibiotics but is not getting better but in taking worse he came in for further evaluation. He does have a history of pneumonia in the past she has had his covert shots. No overt chest pain no overt fevers chills or sweats at this time he has a cough but no overt phlegm MD Complaint: shortness of breath - Related Data Home Medications Medication Instructions Recorded Confirmed amLODIPine [Norvasc] 5 mg PO BID 05/14/19 04/14/21 predniSONE 4 mg PO DAILY 03/13/21 04/14/21 Amiodarone HCl [Pacerone] 200 mg PO DAILY 04/12/21 04/14/21 Warfarin [Coumadin] 3 mg PO [id number] 04/12/21 04/14/21 Warfarin [Coumadin] 5 mg PO MOTH 04/12/21 04/14/21 Previous Rx's Medication Instructions Recorded Ascorbic Acid [Vitamin C] 500 mg PO BID #20 tab 03/05/21 Cholecalciferol [Vitamin D3 (25 50 mcg PO DAILY #20 tablet 03/05/21 Mcg = 1000 Iu)] Atorvastatin [Lipitor] 80 mg PO HS #30 tab 03/20/21 HYDROcodone/APAP 5-325MG [[place] 1 tab PO BID PRN #10 tab 03/20/21 5-325] Metoprolol Tartrate [Lopressor] 25 mg PO BID #0 03/20/21 Allergies Allergy/AdvReac Type Severity Reaction Status Date / Time dopamine Allergy "WAS TOLD Verified 06/11/21 13:05 NOT TO HAVE RX AGAIN,VERY ILL STATES ALMOST " Review of Systems ROS Statement: Those systems with pertinent positive or pertinent negative responses have been documented in the HPI. ROS Other: All systems not noted in ROS Statement are negative. Past Medical History Past Medical History: Cancer, Hyperlipidemia, Hypertension, Osteoarthritis (OA), Prostate Disorder Additional Past Medical History / Comment(s): ARRYTHYTHMIA,AORTIC VALVE REPLACEMENT,PROSTATE CANCER, History of Any Multi-Drug Resistant Organisms: None Reported Past Surgical History: Cardiac Valve Replacement, Tonsillectomy Additional Past Surgical History / Comment(s): vasectomy. carotid artery Past Anesthesia/Blood Transfusion Reactions: No Reported Reaction Past Psychological History: Depression Smoking Status: Former smoker Past Alcohol Use History: None Reported Past Drug Use History: None Reported - Past Family History Mother Family Medical History: Cancer General Exam - General Exam Comments Initial Comments: Is a well-developed well-nourished awake alert oriented 3 male Limitations: no limitations General appearance: alert, anxious Head exam: Present: atraumatic, normocephalic, normal inspection Eye exam: Present: normal appearance, PERRL, EOMI. Absent: scleral icterus, conjunctival injection, periorbital swelling ENT exam: Present: mucous membranes dry Neck exam: Present: normal inspection, full ROM (Stridor JVD or bruits), other. Absent: tenderness, meningismus, lymphadenopathy Respiratory exam: Present: wheezes, decreased breath sounds. Absent: respiratory distress, rales, rhonchi, stridor Cardiovascular Exam: Present: regular rate, normal rhythm, normal heart sounds. Absent: systolic murmur, diastolic murmur, rubs, gallop, clicks GI/Abdominal exam: Present: soft, normal bowel sounds. Absent: distended, tend erness, guarding, rebound, rigid Extremities exam: Present: normal inspection, full ROM, normal capillary refill. Absent: tenderness, pedal edema, joint swelling, calf tenderness Back exam: Present: normal inspection Neurological exam: Present: alert, oriented X3, CN II-XII intact Psychiatric exam: Present: normal affect, normal mood Skin exam: Present: warm, dry, intact, normal color. Absent: rash Course Vital Signs 06/11/21 06/11/21 06/11/21 13:01 14:11 14:20 Temperature 98.4 F Pulse Rate 73 76 67 Respiratory 26 H 18 20 Rate Blood Pressure 154/66 O2 Sat by Pulse 94 L Oximetry 06/11/21 15:00 Temperature Pulse Rate 60 Respiratory 24 Rate Blood Pressure 117/101 O2 Sat by Pulse 99 Oximetry Medical Decision Making - Medical Decision Making I did discuss findings with the patient also with Jean from Dr. Nugent's office patient will be admitted for inpatient evaluation treatment of pneumonia and COPD. - Lab Data Result diagrams: 06/11/21 13:59 06/11/21 13:59 Lab Results 06/11/21 06/11/21 06/11/21 Range/Units 13:59 13:59 13:59 WBC 10.9 H (3.8-10.6) k/uL RBC 4.17 L (4.30-5.90) m/uL Hgb 12.8 L (13.0-17.5) gm/dL Hct 39.4 (39.0-53.0) % MCV 94.6 (80.0-100.0) fL MCH 30.7 (25.0-35.0) pg MCHC 32.4 (31.0-37.0) g/dL RDW 14.3 (11.5-15.5) % Plt Count 204 (150-450) k/uL MPV 8.7 Neutrophils % 84 % Lymphocytes % 6 % Monocytes % 7 % Eosinophils % 2 % Basophils % 1 % Neutrophils # 9.2 H (1.3-7.7) k/uL Lymphocytes # 0.6 L (1.0-4.8) k/uL Monocytes # 0.8 (0-1.0) k/uL Eosinophils # 0.2 (0-0.7) k/uL Basophils # 0.1 (0-0.2) k/uL PT 16.9 H (9.0-12.0) sec INR 1.7 H (<1.2) APTT 35.1 H (22.0-30.0) sec Sodium 133 L (137-145) mmol/L Potassium 5.0 (3.5-5.1) mmol/L Chloride 99 (98-107) mmol/L Carbon Dioxide 27 (22-30) mmol/L Anion Gap 7 mmol/L BUN 30 H (9-20) mg/dL Creatinine 1.01 (0.66-1.25) mg/dL Est GFR (CKD-EPI)AfAm 80 (>60 ml/min/1.73 sqM) Est GFR (CKD-EPI)NonAf 70 (>60 ml/min/1.73 sqM) Glucose 95 (74-99) mg/dL Plasma Lactic Acid Omi (0.7-2.0) mmol/L Calcium 9.4 (8.4-10.2) mg/dL Magnesium 2.2 (1.6-2.3) mg/dL Total Bilirubin 0.6 (0.2-1.3) mg/dL AST 34 (17-59) U/L ALT 14 (4-49) U/L Alkaline Phosphatase 90 (38-126) U/L Creatine Kinase 121 (55-170) U/L Troponin I (0.000-0.034) ng/mL NT-Pro-B Natriuret Pep pg/mL Total Protein 7.6 (6.3-8.2) g/dL Albumin 4.1 (3.5-5.0) g/dL 06/11/21 06/11/21 06/11/21 Range/Units 13:59 13:59 13:59 WBC (3.8-10.6) k/uL RBC (4.30-5.90) m/uL Hgb (13.0-17.5) gm/dL Hct (39.0-53.0) % MCV (80.0-100.0) fL MCH (25.0-35.0) pg MCHC (31.0-37.0) g/dL RDW (11.5-15.5) % Plt Count (150-450) k/uL MPV Neutrophils % % Lymphocytes % % Monocytes % % Eosinophils % % Basophils % % Neutrophils # (1.3-7.7) k/uL Lymphocytes # (1.0-4.8) k/uL Monocytes # (0-1.0) k/uL Eosinophils # (0-0.7) k/uL Basophils # (0-0.2) k/uL PT (9.0-12.0) sec INR (<1.2) APTT (22.0-30.0) sec Sodium (137-145) mmol/L Potassium (3.5-5.1) mmol/L Chloride (98-107) mmol/L Carbon Dioxide (22-30) mmol/L Anion Gap mmol/L BUN (9-20) mg/dL Creatinine (0.66-1.25) mg/dL Est GFR (CKD-EPI)AfAm (>60 ml/min/1.73 sqM) Est GFR (CKD-EPI)NonAf (>60 ml/min/1.73 sqM) Glucose (74-99) mg/dL Plasma Lactic Acid Omi 0.8 (0.7-2.0) mmol/L Calcium (8.4-10.2) mg/dL Magnesium (1.6-2.3) mg/dL Total Bilirubin (0.2-1.3) mg/dL AST (17-59) U/L ALT (4-49) U/L Alkaline Phosphatase (38-126) U/L Creatine Kinase (55-170) U/L Troponin I 0.020 (0.000-0.034) ng/mL NT-Pro-B Natriuret Pep 1470 pg/mL Total Protein (6.3-8.2) g/dL Albumin (3.5-5.0) g/dL - EKG Data -: EKG Interpreted by Me EKG Comments: Pacer rhythm of 64. Interval 158 QRS 162 QT since QTC 500/515, left axis deviation, left bundle branch block - Radiology Data Radiology results: report reviewed (Imaging reviewed evidence of interstitial infiltrate), image reviewed Disposition Clinical Impression: Acute exacerbation of chronic obstructive pulmonary disease, Interstitial pneumonia, Leukocytosis Disposition: ADMITTED IP TO THIS HOSP Condition: Fair Referrals: Coleman Nugent MD [Primary Care Provider] - 1-2 days
--- NOTE | 2021-06-11 14:29 | XR ---
EXAMINATION TYPE: XR chest 2V DATE OF EXAM: 06/11/2021 COMPARISON: 03/19/2021 TECHNIQUE: PA and lateral views submitted. HISTORY: Redness of breath FINDINGS: The lungs are clear and there is no pneumothorax, pleural effusion, or focal pneumonia. Fused inter stitial pattern with cardiomegaly and postoperative change. Cardiac device noted. No pneumothorax. Ti ny amount of pleural fluid in the minor fissure stable from prior exam. IMPRESSION: 1. Table interstitial pattern could be on the basis of chronic pulmonary fibrosis. Superimposed inter stitial pneumonitis or venous congestion in the differential diagnosis..
[2021-06-11 15:15] LABS: Basophils # (A) 0.1 k/uL (0-0.2); Basophils % (A) 1 %; Eosinophils # (A) 0.2 k/uL (0-0.7); Eosinophils % (A) 2 %; HCT 39.4 % (39.0-53.0); HGB 12.8 gm/dL (13.0-17.5); Lymphocytes # (A) 0.6 k/uL (1.0-4.8); Lymphocytes % (A) 6 %; MCH 30.7 pg (25.0-35.0); MCHC 32.4 g/dL (31.0-37.0); MCV 94.6 fL (80.0-100.0); Mean Platelet Volume 8.7; Monocytes # (A) 0.8 k/uL (0-1.0); Monocytes % (A) 7 %; Neutrophils # (A) 9.2 k/uL (1.3-7.7); Neutrophils % (A) 84 %; Platelet Count 204 k/uL (150-450); RBC 4.17 m/uL (4.30-5.90); RDW 14.3 % (11.5-15.5); WBC 10.9 k/uL (3.8-10.6)
[2021-06-11 15:20] LABS: Albumin 4.1 g/dL (3.5-5.0); Calcium 9.4 mg/dL (8.4-10.2); Magnesium 2.2 mg/dL (1.6-2.3); Total Bilirubin 0.6 mg/dL (0.2-1.3); Total Protein 7.6 g/dL (6.3-8.2)
[2021-06-11 15:30] LABS: INR 1.7 (<1.2); Partial Thromboplastin Time 35.1 sec (22.0-30.0); Prothrombin Time 16.9 sec (9.0-12.0)
[2021-06-11] MEDS ORDERED: IPRATROPIUM-ALBUTEROL 3 ML NEB INHALATION PRN ×2 (16:25→19:08)
[2021-06-11] MEDS ORDERED: WARFARIN 3 MG TAB PO SCH (16:30)
[2021-06-11] MEDS ORDERED: cefTRIAXone IN SWFI 1,000 MG/10 ML SYRINGE IVP STA (16:32)
[2021-06-11] MEDS ORDERED: AZITHROMYCIN 500 MG in SODIUM CHLORIDE 0.9% 250 ML IVPB STA (16:33)
[2021-06-11] MEDS: SODIUM CHLORIDE 0.9% 1,000 ML IV SCH (17:02)
--- NOTE | 2021-06-11 17:46 | P.HPIM ---
History of Present Illness H&P Date: 06/11/21 Chief Complaint: Shortness of breath 81-year-old male presented to the emergency room for shortness of breath and exertional dyspnea progressively worsening. Patient extensive diagnostic workup in the emergency department revealing leukocytosis, interstitial pneumonia, and acute exacerbation of COPD. Diagnostic testing from the emergency department reviewed. Patient being placed on broad-spectrum IV antibiotics, [id number] breathing treatments, and IV steroids. 06/11/2021 Patient seen and examined at bedside. Patient noticeably has increased respirations with mild difficulty in breathing. Patient able to speak full sentences with mild difficulty. Patient endorses chills, shortness of breath, exertional dyspnea, nonproductive cough, and generalized weakness. Patient's diagnostic testing reviewed and vital signs are stable. Review of Systems Constitutional: Reports as per HPI Ears, nose, mouth and throat: Reports as per HPI Cardiovascular: Reports as per HPI Respiratory: Reports as per HPI Gastrointestinal: Reports as per HPI Genitourinary: Reports as per HPI Musculoskeletal: Reports as per HPI Integumentary: Reports as per HPI Neurological: Reports as per HPI Psychiatric: Reports as per HPI Endocrine: Reports as per HPI Hematologic/Lymphatic: Reports as per HPI Allergic/Immunologic: Reports as per HPI Past Medical History Past Medical History: Cancer, Hyperlipidemia, Hypertension, Osteoarthritis (OA), Prostate Disorder Additional Past Medical History / Comment(s): ARRYTHYTHMIA,AORTIC VALVE REPLACEMENT,PROSTATE CANCER, History of Any Multi-Drug Resistant Organisms: None Reported Past Surgical History: Cardiac Valve Replacement, Tonsillectomy Additional Past Surgical History / Comment(s): vasectomy. carotid artery Past Anesthesia/Blood Transfusion Reactions: No Reported Reaction Past Psychological History: Depression Smoking Status: Former smoker Past Alcohol Use History: None Reported Past Drug Use History: None Reported - Past Family History Mother Family Medical History: Cancer Medications and Allergies Home Medications and Allergies Comment(s): Medications and ALLERGIES reviewed Home Medications Medication Instructions Recorded Confirmed Type amLODIPine [Norvasc] 5 mg PO BID 05/14/19 06/11/21 History Ascorbic Acid [Vitamin C] 500 mg PO BID #20 tab 03/05/21 06/11/21 Rx Cholecalciferol [Vitamin D3 (25 50 mcg PO DAILY #20 tablet 03/05/21 06/11/21 Rx Mcg = 1000 Iu)] Atorvastatin [Lipitor] 80 mg PO HS #30 tab 03/20/21 06/11/21 Rx HYDROcodone/APAP 5-325MG [[place] 1 tab PO BID PRN #10 tab 03/20/21 06/11/21 Rx 5-325] Amiodarone HCl [Pacerone] 200 mg PO DAILY 04/12/21 06/11/21 History Warfarin [Coumadin] 3 mg PO SUTUWEFRSA 04/12/21 06/11/21 History Warfarin [Coumadin] 5 mg PO MOTH 04/12/21 06/11/21 History Cefdinir [Omnicef] 300 mg PO Q12HR 06/11/21 06/11/21 History Metoprolol Tartrate [Lopressor] 25 mg PO BID 06/11/21 06/11/21 History Allergies Allergy/AdvReac Type Severity Reaction Status Date / Time dopamine Allergy "WAS TOLD Verified 06/11/21 17:06 NOT TO HAVE RX AGAIN,VERY ILL STATES ALMOST " Physical Exam Vitals: Vital Signs Temp Pulse Resp BP Pulse Ox 06/11/21 16:57 64 20 142/62 99 06/11/21 15:00 60 24 117/101 99 06/11/21 14:20 67 20 06/11/21 14:11 76 18 06/11/21 13:01 98.4 F 73 26 H 154/66 94 L Intake and Output 06/11/21 06/11/21 06/11/21 06:59 14:59 22:59 Other: Weight 123.831 kg - Constitutional General appearance: mild distress - EENT Eyes: EOMI, PERRLA ENT: hard of hearing Ears: bilateral: normal - Neck Thyroid: bilateral: normal size - Respiratory Respiratory: bilateral: diminished (Anterior posterior lung minor) - Cardiovascular Heart rate: 68 Rhythm: regular Heart sounds: normal: S1, S2 ankle Peripheral Edema: bilateral: 3+ foot Peripheral Edema: bilateral: 3+ leg Peripheral Edema: bilateral: 1+ radial pulse Peripheral Pulses: bilateral: Normal - Gastrointestinal General gastrointestinal: normal bowel sounds - Integumentary Integumentary: normal turgor - Neurologic Neurologic: CNII-XII intact - Musculoskeletal Musculoskeletal: generalized weakness - Psychiatric Psychiatric: A&O x's 3 Results CBC & Chem 7: 06/11/21 13:59 06/11/21 13:59 Labs: Abnormal Lab Results - Last 24 Hours (Table) 06/11/21 06/11/21 06/11/21 Range/Units 13:59 13:59 13:59 WBC 10.9 H (3.8-10.6) k/uL RBC 4.17 L (4.30-5.90) m/uL Hgb 12.8 L (13.0-17.5) gm/dL Neutrophils # 9.2 H (1.3-7.7) k/uL Lymphocytes # 0.6 L (1.0-4.8) k/uL PT 16.9 H (9.0-12.0) sec INR 1.7 H (<1.2) APTT 35.1 H (22.0-30.0) sec Sodium 133 L (137-145) mmol/L BUN 30 H (9-20) mg/dL Chest x-ray: report reviewed Thrombosis Risk Factor Assmnt - Choose All That Apply Each Factor Represents 1 point: Obesity (BMI >25), Swollen legs (current) Each Risk Factor Represents 3 Points: Age 75 years or older Thrombosis Risk Factor Assessment Total Risk Factor Score: 5 Thrombosis Risk Factor Assessment Level: High Risk Assessment and Plan Assessment: Interstitial pneumonia Leukocytosis Acute exacerbation of chronic obstructive pulmonary disease Hypertension Hyperlipidemia Osteoarthritis History of arrhythmias History of aortic valve replacement History of prostate cancer History of permanent pacemaker Carotid artery stenosis History of nicotine dependence Full code Plan: Interstitial pneumonia, continue broad-spectrum IV antibiotics Acute exacerbation of COPD, continue IV steroids, [id number] DuoNeb's Leukocytosis, continue to trend Continue to monitor vital signs and diagnostic testing Continue home medications Further recommendations to come based on patient's clinical condition Time with Patient: Greater than 30
[2021-06-11] MEDS ORDERED: WARFARIN 5 MG TAB PO ONE (18:00)
[2021-06-11] MEDS: methylPREDNISolone SOD SUCCI 125 MG/2 ML VIAL IV SCH (18:55)
[2021-06-11] MEDS: IPRATROPIUM-ALBUTEROL 3 ML NEB INHALATION SCH ×2 (19:06→23:30)
[2021-06-11] MEDS ORDERED: METOPROLOL TARTRATE 25 MG TAB PO SCH (21:00)
[2021-06-12 00:02] LABS: Glucose,Whole Blood 149 mg/dL (75-99)
[2021-06-12] MEDS: methylPREDNISolone SOD SUCCI 125 MG/2 ML VIAL IV SCH ×5 (00:18→23:44)
[2021-06-12] MEDS: METOPROLOL TARTRATE 25 MG TAB PO SCH ×3 (00:19→22:24)
[2021-06-12] MEDS: amLODIPine 5 MG TAB PO SCH ×3 (00:19→22:25)
[2021-06-12] MEDS: HYDROcodone/APAP 5-325MG 1 EACH TAB PO PRN ×2 (00:19→22:25)
[2021-06-12] MEDS: ASCORBIC ACID 500 MG TAB PO SCH ×3 (00:19→22:25)
[2021-06-12] MEDS: ATORVASTATIN 80 MG TAB PO SCH ×2 (00:20→22:25)
[2021-06-12] MEDS: INSULIN ASPART (NovoLOG) 100 UNIT/ML VIAL SQ SCH ×5 (00:21→22:23)
[2021-06-12] MEDS: SODIUM CHLORIDE 0.9% 1,000 ML IV SCH ×3 (02:53→23:52)
[2021-06-12] MEDS: IPRATROPIUM-ALBUTEROL 3 ML NEB INHALATION SCH ×6 (04:11→23:46)
[2021-06-12] MEDS: CHOLECALCIFEROL 25 MCG (1000 IU) TABLET PO SCH (08:40)
[2021-06-12] MEDS: AZITHROMYCIN 500 MG TAB PO SCH (08:40)
[2021-06-12] MEDS: AMIODARONE 200 MG TAB PO SCH (08:40)
[2021-06-12 08:41] LABS: Basophils % (A) 0 %; Eosinophils % (A) 0 %; HCT 41.2 % (39.0-53.0); HGB 13.1 gm/dL (13.0-17.5); Hypochromasia Slight; Lymphocytes # (A) 0.2 k/uL (1.0-4.8); Lymphocytes % (A) 2 %; MCH 31.2 pg (25.0-35.0); MCHC 31.9 g/dL (31.0-37.0); MCV 97.9 fL (80.0-100.0); Mean Platelet Volume 8.2; Monocytes # (A) 0.2 k/uL (0-1.0); Monocytes % (A) 2 %; Neutrophils # (A) 8.3 k/uL (1.3-7.7); Neutrophils % (A) 95 %; Platelet Count 202 k/uL (150-450); RBC 4.21 m/uL (4.30-5.90); RDW 14.1 % (11.5-15.5); WBC 8.7 k/uL (3.8-10.6)
[2021-06-12 08:57] LABS: ALT 15 U/L (4-49); AST 30 U/L (17-59); African American GFR (CKD) >90 (>60 ml/min/1.73 sqM); Albumin/Globulin Ratio 1.1; Alkaline Phosphatase 87 U/L (38-126); Anion Gap 9 mmol/L; Blood Urea Nitrogen 28 mg/dL (9-20); Calcium 9.2 mg/dL (8.4-10.2); Carbon Dioxide 26 mmol/L (22-30); Chloride 102 mmol/L (98-107); Globulin 3.5 g/dL; Glucose 148 mg/dL (74-99); Non-African American GFR(CKD) 83 (>60 ml/min/1.73 sqM); Potassium 5.3 mmol/L (3.5-5.1); Sodium 137 mmol/L (137-145); Total Bilirubin 0.3 mg/dL (0.2-1.3); Total Protein 7.5 g/dL (6.3-8.2)
[2021-06-12 09:01] LABS: Prothrombin Time 19.2 sec (9.0-12.0)
[2021-06-12 11:26] LABS: Glucose,Whole Blood 164 mg/dL (75-99)
--- NOTE | 2021-06-12 12:18 | CT ---
EXAMINATION TYPE: CT angio chest DATE OF EXAM: 06/12/2021 COMPARISON: 03/03/2021 HISTORY: 81 year-old male shortness of breath, Dyspnea TECHNIQUE: Contiguous axial scanning of the chest performed with IV Contrast, patient injected with 1 00 ml mL of Isovue 300. Coronal/sagittal MIP reconstructions performed. CT DLP: 496.7 mGycm Automated exposure control for dose reduction was used. FINDINGS: Median sternotomy wires are present. Heart is mildly enlarged without pericardial effusion. No flattening of the interventricular septum t tori there is dilatation of the right side of the heart. Mild reflux of contrast into the hepatic ve ins. Mild aneurysm ascending aorta 4.1 cm. Mild atherosclerotic arch calcifications with conventional bran ana anatomy. Mildly enlarged precarinal lymph node at 1 cm, unchanged. Otherwise, no thoracic lymphadenopathy. There is satisfactory opacification of the pulmonary arterial system, large caliber to the main right and the pulmonary arteries measuring up to 3.3 cm. Excessive breathing motion artifact. No large central or definite lobar branch embolus. Many of the s egmental and more distal arterial branches are nondiagnostic and emboli in these locations cannot be excluded on the basis of this exam. Extensive breathing motion artifact limits assessment for small pulmonary nodules. Mild subpleural in terstitial thickening and scarring/fibrosis in the upper lungs. Most of the peripheral groundglass ch anges seen previously have resolved. Some peripheral groundglass nodularity in the right lower lobe r emains. Trace left effusion and prominent dependent atelectasis is present. Septal lines seen to be p resent in the lower lungs along with some mosaic attenuation suggesting small airways disease. Small hiatal hernia. Visualized upper abdomen shows a partially visualized exophytic cyst posterior l eft kidney measuring at least 1.5 cm. Bones: Patient with accentuated lower thoracic kyphosis. Bulky anterior endplate spondylosis T12-L1. IMPRESSION: 1. CARDIOMEGALY AND PULMONARY ARTERIAL HYPERTENSION. 2. THERE IS SEVERE BREATHING MOTION ARTIFACT. NO DEFINITE LARGE CENTRAL OR LOBAR BRANCH PULMONARY EMB OLUS. MANY OF THE SEGMENTAL AND MORE DISTAL ARTERIAL BRANCHES ARE NONDIAGNOSTIC AND EMBOLI IN THESE L OCATIONS CANNOT BE ADEQUATELY EXCLUDED ON THE BASIS OF THIS EXAM. 3. MUCH OF THE PERIPHERAL GROUNDGLASS INFILTRATE ON THE PRIOR EXAM HAS RESOLVED. THE CURRENT EXAM HAS SOME GROUNDGLASS NODULARITY IN THE RIGHT LOWER LOBE THAT COULD REPRESENT SMALL INFECTIOUS/INFLAMMATO RY FOCI. 4. TRACE LEFT EFFUSION AND SCATTERED SEPTAL LINES. CORRELATE TO EXCLUDE MILD CHF WITH PULMONARY VASCU LAR CONGESTION. SUSPECT SOME CHRONIC UNDERLYING INTERSTITIAL FIBROSIS AND SMALL AIRWAYS DISEASE WE LL. 5. 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 SMALL HIATAL HERNIA. DISH WITH ACCENTUATED LOWER THORACIC KYPHOSIS.
--- NOTE | 2021-06-12 14:36 | PN ---
PROGRESS NOTE DATE OF SERVICE: 06/12/2021 This 81-year-old gentleman who was admitted with shortness of breath, fever, cough and other symptoms had bilateral interstitial pneumonia; COPD exacerbation also suspected. The patient apparently took one dose of J and J vaccine. The patient was symptomatic for the last one week. Chest x-ray showed bilateral interstitial shadows. D- dimer is elevated at 0.62. There is no history of fever, rigors, chills at this time. Past medical history noted. REVIEW OF SYSTEMS: CARDIOVASCULAR: As mentioned earlier. RESPIRATORY SYSTEM: As mentioned earlier. GI: As mentioned earlier. : As mentioned earlier. NERVOUS SYSTEM: No numbness, weakness. CURRENT MEDICATIONS: Current medications are reviewed and include [place], DuoNeb, Cordarone, Norvasc, vitamin C, Lipitor, Zithromax, Rocephin, Solu-Medrol. PHYSICAL EXAMINATION: Patient is alert and oriented x3. Pulse 89, blood pressure 120/64, respiration 19, temperature 97.7, pulse ox 97% on 2 L. HEENT: Conjunctivae normal. NECK: No jugular venous distention. CARDIOVASCULAR SYSTEM: S1, S2 muffled. RESPIRATORY: Breath sounds diminished at the bases. Bilateral scattered rhonchi and crackles. ABDOMEN: Soft, nontender. LEGS: No edema. No swelling. NERVOUS SYSTEM: Higher functions as mentioned earlier. Moves all 4 limbs. No focal motor or sensory deficit. LYMPHATICS: No lymph node palpable in neck, axillae or groin. SKIN: No ulcer, rash, bleeding. JOINTS: No active deforming arthropathy. LABS: WBC 8.6, hemoglobin 13.1. D-dimer is 0.62. Potassium 5.3. ASSESSMENT: 1. Chronic obstructive pulmonary disease exacerbation with acute bilateral interstitial pneumonia, possibly Gram-negative. 2. Hypertension. 3. Hyperlipidemia. 4. Elevated D-dimer. 5. Increased white cell count. 6. Hyp_natremia. 7. Mild hyperkalemia. 8. History of hypertension. 9. Degenerative joint disease. 10.History of prostate disorder. 11.History of aortic valve replacement. 12.History of prostate cancer. 13.History of depression. 14.Remote history of nicotine dependence. 15.Obesity with body mass index of 37. RECOMMENDATIONS AND DISCUSSION: In this 81-year-old gentleman who presented with multiple complex medical issues, we will monitor the patient closely. I would recommend continuing the current medications, continue with symptomatic treatment. I recommend a CT angio of the chest and further workup. Otherwise, resume the home medications. Monitor PT, INR closely. Prognosis is guarded because of multiple complex medical issues. Further recommendations to follow. Repeat labs will be ordered. See orders for further details. The patient is followed by Dr. Coleman Nugent in the outpatient setting. MMODL / IJN: [id number] / MARYSE
[2021-06-12 16:53] LABS: Glucose,Whole Blood 148 mg/dL (75-99)
[2021-06-12] MEDS ORDERED: WARFARIN 3 MG TAB PO ONE (18:00)
[2021-06-12 18:31] LABS: Appearance,Urine Clear (Clear); Bilirubin,Urine Negative (Negative); Blood,Urine Negative (Negative); Color,Urine Light Yellow; Glucose,Urine (UA) Negative (Negative); Ketones,Urine Negative (Negative); Leukocyte Esterase,Urine Negative (Negative); Nitrite,Urine Negative (Negative); Protein,Urine Negative (Negative); Specific Gravity,Urine 1.033 (1.001-1.035); Urobilinogen,Urine <2.0 mg/dL (<2.0)
[2021-06-12 21:08] LABS: Glucose,Whole Blood 153 mg/dL (75-99)
[2021-06-12] MEDS ORDERED: SODIUM POLYSTYRENE SULFONATE 15 GM/60 ML BOTTLE PO STA (21:30)
[2021-06-13] MEDS: IPRATROPIUM-ALBUTEROL 3 ML NEB INHALATION SCH ×5 (03:53→20:43)
[2021-06-13] MEDS: methylPREDNISolone SOD SUCCI 125 MG/2 ML VIAL IV SCH ×4 (06:23→23:25)
[2021-06-13 06:51] LABS: Glucose,Whole Blood 134 mg/dL (75-99)
[2021-06-13] MEDS: INSULIN ASPART (NovoLOG) 100 UNIT/ML VIAL SQ SCH ×4 (07:18→21:31)
[2021-06-13] MEDS: SODIUM CHLORIDE 0.9% 1,000 ML IV SCH ×2 (07:23→21:31)
[2021-06-13] MEDS: ASCORBIC ACID 500 MG TAB PO SCH ×2 (07:26→21:30)
[2021-06-13] MEDS: amLODIPine 5 MG TAB PO SCH ×2 (07:26→21:30)
[2021-06-13] MEDS: METOPROLOL TARTRATE 25 MG TAB PO SCH ×2 (07:26→21:30)
[2021-06-13] MEDS: AMIODARONE 200 MG TAB PO SCH (07:26)
[2021-06-13] MEDS: CHOLECALCIFEROL 25 MCG (1000 IU) TABLET PO SCH (07:26)
[2021-06-13] MEDS: AZITHROMYCIN 500 MG TAB PO SCH (07:27)
--- NOTE | 2021-06-13 09:08 | P.CNPUL ---
History of Present Illness Consult date: 06/13/21 Reason for consult: dyspnea, cough, COPD, hypoxemia Chief complaint: Shortness of breath History of present illness: Patient is a pleasant 81-year-old developed progressive shortness of breath for the last several days with cough congestion and thick tenacious sputum production, due to persistent nature came into the hospital for further evaluation and ended up being admitted since admission her cough slightly better , patient also has a significant history of the pneumonia in the past also has a pacemaker inserted earlier this year, her chest x-ray significant for prominent interstitium predominantly at the bases of the lung occurred pneumonia cannot be differentiated, patient underwent computed tomography scan of the chest revealed presence of cardiomegaly pulmonary artery hypertension, no pulmonary embolism is seen, bilateral patchy peripheral groundglass opacities seen however appeared to have slightly better compared to prior exam the small pleural effusion is seen neurology on the left side Review of Systems All systems: negative Past Medical History Past Medical History: Cancer, Hyperlipidemia, Hypertension, Osteoarthritis (OA), Prostate Disorder Additional Past Medical History / Comment(s): ARRYTHYTHMIA,AORTIC VALVE REPLACEMENT,PROSTATE CANCER, History of Any Multi-Drug Resistant Organisms: None Reported Past Surgical History: Cardiac Valve Replacement, Tonsillectomy Additional Past Surgical History / Comment(s): vasectomy. carotid artery Past Anesthesia/Blood Transfusion Reactions: No Reported Reaction Past Psychological History: Depression Smoking Status: Former smoker Past Alcohol Use History: None Reported Past Drug Use History: None Reported - Past Family History Mother Family Medical History: Cancer Medications and Allergies Home Medications Medication Instructions Recorded Confirmed Type amLODIPine [Norvasc] 5 mg PO BID 05/14/19 06/11/21 History Ascorbic Acid [Vitamin C] 500 mg PO BID #20 tab 03/05/21 06/11/21 Rx Cholecalciferol [Vitamin D3 (25 50 mcg PO DAILY #20 tablet 03/05/21 06/11/21 Rx Mcg = 1000 Iu)] Atorvastatin [Lipitor] 80 mg PO HS #30 tab 03/20/21 06/11/21 Rx HYDROcodone/APAP 5-325MG [[place] 1 tab PO BID PRN #10 tab 03/20/21 06/11/21 Rx 5-325] Amiodarone HCl [Pacerone] 200 mg PO DAILY 04/12/21 06/11/21 History Warfarin [Coumadin] 3 mg PO SUTUWEFRSA 04/12/21 06/11/21 History Warfarin [Coumadin] 5 mg PO MOTH 04/12/21 06/11/21 History Cefdinir [Omnicef] 300 mg PO Q12HR 06/11/21 06/11/21 History Metoprolol Tartrate [Lopressor] 25 mg PO BID 06/11/21 06/11/21 History Allergies Allergy/AdvReac Type Severity Reaction Status Date / Time dopamine Allergy "WAS TOLD Verified 06/11/21 17:06 NOT TO HAVE RX AGAIN,VERY ILL STATES ALMOST " Physical Exam Vitals: Vital Signs Temp Pulse Pulse Resp BP Pulse Ox 06/13/21 08:13 88 18 06/13/21 08:04 90 18 95 06/13/21 07:46 97.7 F 73 17 135/71 91 L 06/13/21 07:09 74 19 06/13/21 03:15 97.4 F L 74 19 124/53 95 06/12/21 20:15 97.8 F 81 19 124/65 92 L 06/12/21 20:00 74 19 06/12/21 19:59 77 06/12/21 19:49 73 06/12/21 16:14 73 06/12/21 16:02 68 06/12/21 13:31 98.2 F 67 20 137/77 92 L Intake and Output 06/12/21 06/13/21 06/13/21 22:59 06:59 14:59 Intake Total 240 Balance 240 Intake: Oral 240 Other: Voiding Method Urinal Urinal # Voids 2 - Constitutional General appearance: cooperative, disheveled - EENT Eyes: PERRLA Ears: bilateral: normal - Neck Neck: normal ROM Carotids: bilateral: upstroke normal - Respiratory Respiratory: bilateral: CTA - Cardiovascular Rhythm: regular Heart sounds: normal: S1, S2 - Gastrointestinal General gastrointestinal: normal bowel sounds - Integumentary Integumentary: normal - Neurologic Neurologic: CNII-XII intact - Musculoskeletal Musculoskeletal: generalized weakness - Psychiatric Psychiatric: A&O x's 3, appropriate affect, intact judgment & insight Results - Laboratory Findings CBC and BMP: 06/12/21 07:53 06/12/21 07:53 PT/INR, D-dimer PT 19.2 sec (9.0-12.0) H 06/12/21 07:53 INR 2.0 (<1.2) H 06/12/21 07:53 D-Dimer 0.62 mg/L FEU (<0.60) H 06/12/21 07:53 Abnormal lab findings: Abnormal Labs 06/11/21 06/11/21 06/11/21 13:59 13:59 13:59 WBC 10.9 H RBC 4.17 L Hgb 12.8 L Neutrophils # 9.2 H Lymphocytes # 0.6 L PT 16.9 H INR 1.7 H APTT 35.1 H D-Dimer Sodium 133 L Potassium BUN 30 H Glucose POC Glucose (mg/dL) 06/12/21 06/12/21 06/12/21 00:01 07:53 07:53 WBC RBC 4.21 L Hgb Neutrophils # 8.3 H Lymphocytes # 0.2 L PT 19.2 H INR 2.0 H APTT D-Dimer Sodium Potassium BUN Glucose POC Glucose (mg/dL) 149 H 06/12/21 06/12/21 06/12/21 07:53 07:53 11:25 WBC RBC Hgb Neutrophils # Lymphocytes # PT INR APTT D-Dimer 0.62 H Sodium Potassium 5.3 H BUN 28 H Glucose 148 H POC Glucose (mg/dL) 164 H 06/12/21 06/12/21 06/13/21 16:51 21:06 06:50 WBC RBC Hgb Neutrophils # Lymphocytes # PT INR APTT D-Dimer Sodium Potassium BUN Glucose POC Glucose (mg/dL) 148 H 153 H 134 H - Diagnostic Findings Chest x-ray: report reviewed, image reviewed CT scan - chest: report reviewed, image reviewed (Finding as noted above) Assessment and Plan Assessment: COPD with acute exacerbation Interstitial pneumonia however clinically doing better Congestive heart failure acute and 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
[2021-06-13 10:48] LABS: INR 2.36 (0.90-1.11); Prothrombin Time 24.3 sec (9.9-11.9)
[2021-06-13 11:23] LABS: Basophils # (A) 0.01 X 10*3/uL (0.00-0.10); Basophils % (A) 0.1 %; Eosinophils # (A) 0 X 10*3/uL (0.04-0.35); Eosinophils % (A) 0 %; HCT 36.6 % (39.6-50.0); HGB 11.5 g/dL (13.0-17.0); Lymphocytes # (A) 0.26 X 10*3/uL (0.90-5.00); Lymphocytes % (A) 1.9 %; MCH 30.6 pg (27.0-32.0); MCHC 31.4 g/dL (32.0-37.0); MCV 97.3 fL (80.0-97.0); Mean Platelet Volume 10.9 fL (9.5-12.2); Monocytes # (A) 0.33 X 10*3/uL (0.20-1.00); Monocytes % (A) 2.5 %; Neutrophils # (A) 12.71 X 10*3/uL (1.80-7.70); Neutrophils % (A) 95.1 %; Platelet Count 177 X 10*3/uL (140-440); RBC 3.76 X 10*6/uL (4.40-5.60); RDW 14.3 % (11.5-14.5); WBC 13.37 X 10*3/uL (4.50-10.00)
[2021-06-13 11:51] LABS: African American GFR (CKD) 92.5 (60.0-200.0); Calcium 8.5 mg/dL (8.7-10.3); Non-African American GFR(CKD) 79.8 (60.0-200.0); Potassium 4.7 mmol/L (3.5-5.5)
[2021-06-13 11:53] LABS: Glucose,Whole Blood 167 mg/dL (75-99)
--- NOTE | 2021-06-13 14:21 | PN ---
PROGRESS NOTE DATE OF SERVICE: 06/13/2021 This 81-year-old gentleman who was admitted with COPD, acute exacerbation, as well as bilateral interstitial pneumonia, is being closely monitored. The patient is on broad- spectrum IV antibiotics. Chest CT was negative for pulmonary embolism. Pulmonary, Dr. Walker, is following the patient closely from the pulmonary standpoint. No chest pain. No palpitations. No fever. Past medical history reviewed. . REVIEW OF SYSTEMS: CARDIOVASCULAR SYSTEM: No angina, palpitations. RESPIRATORY SYSTEM: As mentioned earlier. GI: As mentioned earlier. : No dysuria. NERVOUS SYSTEM: No numbness, weakness. CURRENT MEDICATIONS: Current medications are reviewed and include [place], DuoNeb, Cordarone, vitamin, Lipitor, Zithromax, Rocephin. Other medication and doses are reviewed. PHYSICAL EXAMINATION: Patient is alert and oriented x3. Pulse 88, blood pressure 135/71, respiration 17, temperature 97.1, pulse ox 91% on room air. HEENT: Conjunctivae normal. Oral mucosa moist. NECK: No jugular venous distention. CARDIOVASCULAR: S1, S2 muffled. RESPIRATORY SYSTEM: Breath sounds diminished at the bases. A few scattered rhonchi and crackles. Expiratory wheezing also present. ABDOMEN: Soft, obese, nontender. NERVOUS SYSTEM: No focal deficit. LABS: WBC 13.6, hemoglobin 11.5. Creatinine is normal and INR 2.36. Glucose noted. ASSESSMENT: 1. Chronic obstructive pulmonary disease, acute exacerbation, with acute bilateral interstitial pneumonia, possibly Gram-negative. 2. Hypertension. 3. Hyperlipidemia. 4. Elevated D-dimer. 5. Increased white count. 6. Hyponatremia. 7. Mild hyperkalemia. 8. History of hypertension. 9. History of degenerative joint disease. 10.History of prostate disorder. 11.History of aortic valve replacement. 12.History of prostate cancer. 13.History of depression. 14.Remote history of nicotine dependence. 15.Obesity with body mass index of 37. RECOMMENDATIONS AND DISCUSSION: I recommend to continue current medications, continue with symptomatic treatment. Otherwise, continue with the empiric antibiotics, bronchodilators and steroids. Closely follow with Dr. Walker. Guarded prognosis because of multiple complex medical issues. Further recommendations to follow. Repeat labs will be ordered tomorrow. See orders for further details. MMODL / IJN: [id number] /
[2021-06-13 16:38] LABS: Glucose,Whole Blood 134 mg/dL (75-99)
[2021-06-13] MEDS ORDERED: WARFARIN 3 MG TAB PO ONE (18:00)
[2021-06-13 20:21] LABS: Glucose,Whole Blood 171 mg/dL (75-99)
[2021-06-13] MEDS: ATORVASTATIN 80 MG TAB PO SCH (21:30)
[2021-06-14 05:00] LABS: INR 2.8 (<1.2); Prothrombin Time 26.6 sec (9.0-12.0)
[2021-06-14] MEDS: methylPREDNISolone SOD SUCCI 125 MG/2 ML VIAL IV SCH ×4 (05:34→22:34)
[2021-06-14] MEDS: SODIUM CHLORIDE 0.9% 1,000 ML IV SCH ×2 (05:36→12:38)
[2021-06-14 05:54] LABS: Mycoplasma IgG Antibody (EIA) 3.95 INDEX (<=0.90); Mycoplasma IgM Antibody 0.66 INDEX (<=0.90)
[2021-06-14 06:52] LABS: Glucose,Whole Blood 128 mg/dL (75-99)
[2021-06-14] MEDS: INSULIN ASPART (NovoLOG) 100 UNIT/ML VIAL SQ SCH ×4 (08:36→22:33)
[2021-06-14] MEDS: IPRATROPIUM-ALBUTEROL 3 ML NEB INHALATION SCH ×4 (08:52→20:46)
[2021-06-14] MEDS: ASCORBIC ACID 500 MG TAB PO SCH ×2 (08:57→22:33)
[2021-06-14] MEDS: CHOLECALCIFEROL 25 MCG (1000 IU) TABLET PO SCH (08:57)
[2021-06-14] MEDS: AMIODARONE 200 MG TAB PO SCH (08:57)
[2021-06-14] MEDS: AZITHROMYCIN 500 MG TAB PO SCH (08:57)
[2021-06-14] MEDS: amLODIPine 5 MG TAB PO SCH ×2 (08:57→22:32)
[2021-06-14] MEDS: METOPROLOL TARTRATE 25 MG TAB PO SCH ×2 (08:57→22:32)
[2021-06-14 08:58] LABS: Basophils # (A) 0.01 X 10*3/uL (0.00-0.10); Basophils % (A) 0.1 %; Eosinophils # (A) 0 X 10*3/uL (0.04-0.35); Eosinophils % (A) 0 %; HCT 38.4 % (39.6-50.0); HGB 11.7 g/dL (13.0-17.0); Lymphocytes # (A) 0.24 X 10*3/uL (0.90-5.00); Lymphocytes % (A) 1.8 %; MCH 29.6 pg (27.0-32.0); MCHC 30.5 g/dL (32.0-37.0); MCV 97.2 fL (80.0-97.0); Monocytes # (A) 0.37 X 10*3/uL (0.20-1.00); Monocytes % (A) 2.8 %; Neutrophils # (A) 12.69 X 10*3/uL (1.80-7.70); Neutrophils % (A) 94.5 %; Platelet Count 195 X 10*3/uL (140-440); RBC 3.95 X 10*6/uL (4.40-5.60); RDW 14.4 % (11.5-14.5); WBC 13.42 X 10*3/uL (4.50-10.00)
--- NOTE | 2021-06-14 09:11 | P.PN ---
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 with the small pleural effusion related interstitial edema Hypertension hypertensive cardiovascular disease Dyslipidemia Status post pacemaker placement 06/14/2021, patient seen eval reexamined history status slightly better now, on intermittent cough is present, no persistent sputum phlegm has been in no respiratory status improved, Objective - Vital Signs Vital signs: Vital Signs Temp 98 F 06/14/21 08:00 Pulse 72 06/14/21 09:01 Resp 18 06/14/21 08:00 BP 150/62 06/14/21 08:00 Pulse Ox 94 L 06/14/21 08:00 Intake & Output 06/13/21 06/14/21 06/14/21 18:59 06:59 18:59 Intake Total 200 Output Total 401 700 Balance -201 -700 Intake: Oral 200 Output: Urine 400 700 Urine/Stool Mix 1 Other: Voiding Method Urinal Urinal # Voids 6 - Exam - Constitutional General appearance: cooperative, disheveled - EENT Eyes: PERRLA Ears: bilateral: normal - Neck Neck: normal ROM Carotids: bilateral: upstroke normal - Respiratory Respiratory: bilateral: CTA - Cardiovascular Rhythm: regular Heart sounds: normal: S1, S2 - Gastrointestinal General gastrointestinal: normal bowel sounds - Integumentary Integumentary: normal - Neurologic Neurologic: CNII-XII intact - Musculoskeletal Musculoskeletal: generalized weakness - Psychiatric Psychiatric: A&O x's 3, appropriate affect, intact judgment & insight - Labs CBC & Chem 7: 06/14/21 04:29 06/13/21 06:07 Labs: Abnormal Lab Results - Last 24 Hours (Table) 06/12/21 06/13/21 06/13/21 Range/Units 07:53 06:07 06:07 WBC 13.37 H (4.50-10.00) X 10*3/uL RBC 3.76 L (4.40-5.60) X 10*6/uL Hgb 11.5 L (13.0-17.0) g/dL Hct 36.6 L (39.6-50.0) % MCV 97.3 H (80.0-97.0) fL MCHC 31.4 L (32.0-37.0) g/dL Immature Gran # 0.06 H (0.00-0.04) X 10*3/uL Neutrophils # 12.71 H (1.80-7.70) X 10*3/uL Lymphocytes # 0.26 L (0.90-5.00) X 10*3/uL Eosinophils # 0 L (0.04-0.35) X 10*3/uL PT 24.3 H (9.9-11.9) sec INR 2.36 H (0.90-1.11) BUN/Creatinine Ratio (12.00-20.00) Ratio Glucose (70-110) mg/dL POC Glucose (mg/dL) (75-99) mg/dL Calcium (8.7-10.3) mg/dL Mycoplasma pneumon IgG 3.95 H (<=0.90) INDEX 06/13/21 06/13/21 06/13/21 Range/Units 06:07 11:52 16:37 WBC (4.50-10.00) X 10*3/uL RBC (4.40-5.60) X 10*6/uL Hgb (13.0-17.0) g/dL Hct (39.6-50.0) % MCV (80.0-97.0) fL MCHC (32.0-37.0) g/dL Immature Gran # (0.00-0.04) X 10*3/uL Neutrophils # (1.80-7.70) X 10*3/uL Lymphocytes # (0.90-5.00) X 10*3/uL Eosinophils # (0.04-0.35) X 10*3/uL PT (9.9-11.9) sec INR (0.90-1.11) BUN/Creatinine Ratio 30.00 H (12.00-20.00) Ratio Glucose 130 H (70-110) mg/dL POC Glucose (mg/dL) 167 H 134 H (75-99) mg/dL Calcium 8.5 L (8.7-10.3) mg/dL Mycoplasma pneumon IgG (<=0.90) INDEX 06/13/21 06/14/21 06/14/21 Range/Units 20:19 04:29 04:29 WBC 13.42 H (4.50-10.00) X 10*3/uL RBC 3.95 L (4.40-5.60) X 10*6/uL Hgb 11.7 L (13.0-17.0) g/dL Hct 38.4 L (39.6-50.0) % MCV 97.2 H (80.0-97.0) fL MCHC 30.5 L (32.0-37.0) g/dL Immature Gran # 0.11 H (0.00-0.04) X 10*3/uL Neutrophils # 12.69 H (1.80-7.70) X 10*3/uL Lymphocytes # 0.24 L (0.90-5.00) X 10*3/uL Eosinophils # 0 L (0.04-0.35) X 10*3/uL PT 26.6 H (9.9-11.9) sec INR 2.8 H (0.90-1.11) BUN/Creatinine Ratio (12.00-20.00) Ratio Glucose (70-110) mg/dL POC Glucose (mg/dL) 171 H (75-99) mg/dL Calcium (8.7-10.3) mg/dL Mycoplasma pneumon IgG (<=0.90) INDEX 06/14/21 Range/Units 06:51 WBC (4.50-10.00) X 10*3/uL RBC (4.40-5.60) X 10*6/uL Hgb (13.0-17.0) g/dL Hct (39.6-50.0) % MCV (80.0-97.0) fL MCHC (32.0-37.0) g/dL Immature Gran # (0.00-0.04) X 10*3/uL Neutrophils # (1.80-7.70) X 10*3/uL Lymphocytes # (0.90-5.00) X 10*3/uL Eosinophils # (0.04-0.35) X 10*3/uL PT (9.9-11.9) sec INR (0.90-1.11) BUN/Creatinine Ratio (12.00-20.00) Ratio Glucose (70-110) mg/dL POC Glucose (mg/dL) 128 H (75-99) mg/dL Calcium (8.7-10.3) mg/dL Mycoplasma pneumon IgG (<=0.90) INDEX Microbiology - Last 24 Hours (Table) 06/11/21 13:59 Blood Culture - Preliminary Blood No Growth after 48 hours Assessment and Plan Assessment: COPD with acute exacerbation Interstitial pneumonia however clinically doing better Congestive heart failure 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
[2021-06-14 10:06] LABS: African American GFR (CKD) 97.1 (60.0-200.0); Anion Gap 8.8 mmol/L (4.00-12.00); BUN/Creat Ratio 32.5 Ratio (12.00-20.00); Calcium 8.8 mg/dL (8.7-10.3); Carbon Dioxide 29.2 mmol/L (21.6-31.8); Non-African American GFR(CKD) 83.8 (60.0-200.0); Potassium 3.8 mmol/L (3.5-5.5)
[2021-06-14 11:31] LABS: Glucose,Whole Blood 193 mg/dL (75-99)
[2021-06-14 16:06] LABS: Glucose,Whole Blood 151 mg/dL (75-99)
--- NOTE | 2021-06-14 16:46 | PN ---
PROGRESS NOTE DATE OF SERVICE: 06/14/2021 This 81-year-old gentleman with a past medical history of multiple medical problems was admitted with COPD exacerbation as well as acute bilateral interstitial pneumonia. The patient being closely monitored. No chest pain. No palpitations. No fever. The patient is also followed by Dr. Walker also. PHYSICAL EXAMINATION: Alert and oriented times three. Pulse is 70. Blood pressure 150/60, respiration 18, temperature 98 degrees, pulse ox 94% on room air. HEENT: Conjunctivae normal. Neck: No JVD. CARDIOVASCULAR: S1, S2, muffled. No S3, no S4. RESPIRATORY: Breath sounds diminished at the bases. A few scattered rhonchi. ABDOMEN: Soft. NERVOUS SYSTEM: No focal deficits. LABS: WBC 13.2, hemoglobin 11.7. ASSESSMENT: 1. Chronic obstructive pulmonary disease acute exacerbation with acute bilateral interstitial pneumonia possibly gram-negative. 2. Hypertension. 3. Hyperlipidemia. 4. Elevated D-dimer. 5. Increased WBC. 6. Hyponatremia. 7. Mild hyperkalemia. 8. Hypertension. 9. Degenerative joint disease. 10.Prostate disorder. 11.History of aortic valve replacement. 12.History of prostate cancer. 13.History of depression. 14.Remote history of nicotine dependence. 15.Obesity with body mass of 37. RECOMMENDATIONS AND DISCUSSION: Recommend to continue current medications, continue the bronchodilators. Continue the antibiotics. Closely follow with Pulmonary. Dr. Nugent will follow tomorrow. MMNAOMYL / VIVIANN: [id number] /
[2021-06-14] MEDS ORDERED: MELATONIN 3 MG TABLET PO PRN (17:40)
[2021-06-14] MEDS ORDERED: WARFARIN 1 MG TAB PO ONE (18:00)
[2021-06-14 20:28] LABS: Glucose,Whole Blood 180 mg/dL (75-99)
[2021-06-14] MEDS: ATORVASTATIN 80 MG TAB PO SCH (22:33)
[2021-06-15] MEDS: SODIUM CHLORIDE 0.9% 1,000 ML IV SCH ×2 (02:06→11:55)
[2021-06-15] MEDS: methylPREDNISolone SOD SUCCI 125 MG/2 ML VIAL IV SCH ×2 (06:05→11:55)
[2021-06-15 06:48] LABS: Glucose,Whole Blood 131 mg/dL (75-99)
[2021-06-15] MEDS: INSULIN ASPART (NovoLOG) 100 UNIT/ML VIAL SQ SCH ×4 (07:38→21:36)
[2021-06-15] MEDS: amLODIPine 5 MG TAB PO SCH ×2 (08:19→21:35)
[2021-06-15] MEDS: AZITHROMYCIN 500 MG TAB PO SCH (08:19)
[2021-06-15] MEDS: CHOLECALCIFEROL 25 MCG (1000 IU) TABLET PO SCH (08:19)
[2021-06-15] MEDS: AMIODARONE 200 MG TAB PO SCH (08:19)
[2021-06-15] MEDS: ASCORBIC ACID 500 MG TAB PO SCH ×2 (08:19→21:35)
[2021-06-15] MEDS: METOPROLOL TARTRATE 25 MG TAB PO SCH ×2 (08:20→21:35)
--- NOTE | 2021-06-15 08:29 | XR ---
EXAMINATION TYPE: XR chest 2V DATE OF EXAM: 06/15/2021 COMPARISON: 06/12/2021 TECHNIQUE: PA and lateral views submitted. HISTORY: Shortness of breath FINDINGS: There is a persistent interstitial pattern with tiny effusions. Postoperative changes are seen and th ere is a cardiac device. Biapical pleural thickening with arthropathy shoulders. IMPRESSION: 1. Coarsened interstitium correlate for chronic interstitial lung disease, venous congestion or inter stitial pneumonitis. 2. Cardiomegaly.
[2021-06-15] MEDS: IPRATROPIUM-ALBUTEROL 3 ML NEB INHALATION SCH ×4 (08:32→20:59)
[2021-06-15 10:54] LABS: Basophils # (A) 0.01 X 10*3/uL (0.00-0.10); Basophils % (A) 0.1 %; Eosinophils # (A) 0 X 10*3/uL (0.04-0.35); Eosinophils % (A) 0 %; HCT 41.3 % (39.6-50.0); Lymphocytes # (A) 0.18 X 10*3/uL (0.90-5.00); Lymphocytes % (A) 1.5 %; MCH 30.6 pg (27.0-32.0); MCHC 31.5 g/dL (32.0-37.0); MCV 97.2 fL (80.0-97.0); Mean Platelet Volume 10.9 fL (9.5-12.2); Monocytes # (A) 0.46 X 10*3/uL (0.20-1.00); Monocytes % (A) 3.8 %; Neutrophils # (A) 11.51 X 10*3/uL (1.80-7.70); Neutrophils % (A) 93.8 %; Platelet Count 206 X 10*3/uL (140-440); RBC 4.25 X 10*6/uL (4.40-5.60); RDW 14.5 % (11.5-14.5); WBC 12.26 X 10*3/uL (4.50-10.00)
--- NOTE | 2021-06-15 11:00 | P.PN ---
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 with the small pleural effusion related interstitial edema Hypertension hypertensive cardiovascular disease Dyslipidemia Status post pacemaker placement 06/15/2021, overall respiratory status continued to improve, patient was diuresed, agree with discharge planning follow-up on outpatient basis patient will need pulmonary evaluation for COPD as well as sleep study for sleep disorder breathing and sleep apnea 06/14/2021, patient seen eval reexamined history status slightly better now, on intermittent cough is present, no persistent sputum phlegm has been in no respiratory status improved, Patient is a pleasant 81-year-old developed progressive shortness of breath for the last several days with cough congestion and thick tenacious sputum production, due to persistent nature came into the hospital for further evaluation and ended up being admitted since admission her cough slightly better, patient also has a significant history of the pneumonia in the past also has a pacemaker inserted earlier this year, her chest x-ray significant for prominent interstitium predominantly at the bases of the lung occurred pneumonia cannot be differentiated, patient underwent computed tomography scan of the chest revealed presence of cardiomegaly pulmonary artery hypertension, no pul monary embolism is seen, bilateral patchy peripheral groundglass opacities seen however appeared to have slightly better compared to prior exam the small pleural effusion is seen neurology on the left side Objective - Vital Signs Vital signs: Vital Signs Temp 98.5 F 06/15/21 06:56 Pulse 70 06/15/21 08:43 Resp 18 06/15/21 08:00 BP 172/68 06/15/21 06:56 Pulse Ox 94 L 06/15/21 06:56 Intake & Output 06/14/21 06/15/21 06/15/21 18:59 06:59 18:59 Intake Total 1280 Output Total 1001 Balance 279 Intake: Oral 1280 Output: Urine 1000 Stool 1 Other: Voiding Method Urinal Urinal - Exam - Constitutional General appearance: cooperative, disheveled - EENT Eyes: PERRLA Ears: bilateral: normal - Neck Neck: normal ROM Carotids: bilateral: upstroke normal - Respiratory Respiratory: bilateral: CTA - Cardiovascular Rhythm: regular Heart sounds: normal: S1, S2 - Gastrointestinal General gastrointestinal: normal bowel sounds - Integumentary Integumentary: normal - Neurologic Neurologic: CNII-XII intact - Musculoskeletal Musculoskeletal: generalized weakness - Psychiatric Psychiatric: A&O x's 3, appropriate affect, intact judgment & insight - Labs CBC & Chem 7: 06/15/21 08:07 06/14/21 04:29 Labs: Abnormal Lab Results - Last 24 Hours (Table) 06/14/21 06/14/21 06/14/21 Range/Units 11:30 16:04 20:27 WBC (4.50-10.00) X 10*3/uL RBC (4.40-5.60) X 10*6/uL MCV (80.0-97.0) fL MCHC (32.0-37.0) g/dL Immature Gran # (0.00-0.04) X 10*3/uL Neutrophils # (1.80-7.70) X 10*3/uL Lymphocytes # (0.90-5.00) X 10*3/uL Eosinophils # (0.04-0.35) X 10*3/uL POC Glucose (mg/dL) 193 H 151 H 180 H (75-99) mg/dL 06/15/21 06/15/21 Range/Units 06:41 08:07 WBC 12.26 H (4.50-10.00) X 10*3/uL RBC 4.25 L (4.40-5.60) X 10*6/uL MCV 97.2 H (80.0-97.0) fL MCHC 31.5 L (32.0-37.0) g/dL Immature Gran # 0.10 H (0.00-0.04) X 10*3/uL Neutrophils # 11.51 H (1.80-7.70) X 10*3/uL Lymphocytes # 0.18 L (0.90-5.00) X 10*3/uL Eosinophils # 0 L (0.04-0.35) X 10*3/uL POC Glucose (mg/dL) 131 H (75-99) mg/dL Microbiology - Last 24 Hours (Table) 06/11/21 13:59 Blood Culture - Preliminary Blood No Growth after 72 hours Assessment and Plan Assessment: COPD with acute exacerbation Interstitial pneumonia however clinically doing better Congestive heart failure 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
[2021-06-15 11:28] LABS: Glucose,Whole Blood 125 mg/dL (75-99)
[2021-06-15 11:35] LABS: INR 2.77 (0.90-1.11); Prothrombin Time 28.2 sec (9.9-11.9)
[2021-06-15 12:02] LABS: African American GFR (CKD) 97.1 (60.0-200.0); Albumin 3.7 g/dL (3.80-4.90); Albumin/Globulin Ratio 1.23 (1.60-3.17); Anion Gap 9.2 mmol/L (4.00-12.00); Calcium 8.8 mg/dL (8.7-10.3); Carbon Dioxide 28.8 mmol/L (21.6-31.8); Magnesium 1.9 mg/dL (1.5-2.4); Non-African American GFR(CKD) 83.8 (60.0-200.0); Total Bilirubin 0.4 mg/dL (0.3-1.2); Total Protein 6.7 g/dL (6.2-8.2)
[2021-06-15 16:43] LABS: Glucose,Whole Blood 156 mg/dL (75-99)
[2021-06-15] MEDS ORDERED: WARFARIN 2 MG TAB PO ONE (18:00)
--- NOTE | 2021-06-15 18:08 | P.PN ---
Subjective Progress Note Date: 06/15/21 Principal diagnosis: Acute COPD exacerbation Interstitial pneumonia 81-year-old male presented to the emergency room for shortness of breath and exertional dyspnea progressively worsening. Patient extensive diagnostic workup in the emergency department revealing leukocytosis, interstitial pneumonia, and acute exacerbation of COPD. Diagnostic testing from the emergency department reviewed. Patient being placed on broad-spectrum IV antibiotics, [id number] breathing treatments, and IV steroids. 06/15/2021 She is seen and examined at bedside. Patient resting comfortably in chair. Patient continues to endorse mild shortness of breath with exertion and generalized weakness. Throughout hospital stay patient has improved with COPD exacerbation and interstitial pneumonia. Patient speaking full sentences with no difficulty. Lung sounds have improved. Patient to be placed on oral antibiotics and oral steroids. Vital signs and diagnostic testing reviewed Objective - Vital Signs Vital signs: Vital Signs Temp 97.8 F 06/15/21 13:48 Pulse 66 06/15/21 16:23 Resp 18 06/15/21 13:48 BP 135/66 06/15/21 13:48 Pulse Ox 94 L 06/15/21 13:48 Intake & Output 06/14/21 06/15/21 06/15/21 18:59 06:59 18:59 Intake Total 1280 Output Total 1001 Balance 279 Intake: Oral 1280 Output: Urine 1000 Stool 1 Other: Voiding Method Urinal Urinal - Constitutional General appearance: Present: cooperative - EENT Eyes: Present: EOMI, PERRLA ENT: Present: normal oropharynx Ears: bilateral: normal - Neck Thyroid: bilateral: normal size - Respiratory Respiratory: bilateral: CTA (Anterior and posterior lung minor) - Cardiovascular Heart rate: 84 Rhythm: regular Heart sounds: normal: S1, S2 - Peripheral pulses radial pulse Peripheral Pulses: bilateral: Normal femoral Peripheral Pulses: bilateral: Normal - Gastrointestinal General gastrointestinal: Present: normal bowel sounds - Integumentary Integumentary: Present: normal turgor - Neurologic Neurologic: Present: CNII-XII intact - Musculoskeletal Musculoskeletal: Present: generalized weakness - Psychiatric Psychiatric: Present: A&O x's 3 - Allied health notes Allied health notes reviewed: nursing - Labs CBC & Chem 7: 06/15/21 08:07 06/15/21 08:07 Labs: Abnormal Lab Results - Last 24 Hours (Table) 06/14/21 06/15/21 06/15/21 Range/Units 20:27 06:41 08:07 WBC (4.50-10.00) X 10*3/uL RBC (4.40-5.60) X 10*6/uL MCV (80.0-97.0) fL MCHC (32.0-37.0) g/dL Immature Gran # (0.00-0.04) X 10*3/uL Neutrophils # (1.80-7.70) X 10*3/uL Lymphocytes # (0.90-5.00) X 10*3/uL Eosinophils # (0.04-0.35) X 10*3/uL PT 28.2 H (9.9-11.9) sec INR 2.77 H (0.90-1.11) BUN (9.0-27.0) mg/dL BUN/Creatinine Ratio (12.00-20.00) Ratio Glucose (70-110) mg/dL POC Glucose (mg/dL) 180 H 131 H (75-99) mg/dL Albumin (3.80-4.90) g/dL Albumin/Globulin Ratio (1.60-3.17) g/dL 06/15/21 06/15/21 06/15/21 Range/Units 08:07 08:07 11:26 WBC 12.26 H (4.50-10.00) X 10*3/uL RBC 4.25 L (4.40-5.60) X 10*6/uL MCV 97.2 H (80.0-97.0) fL MCHC 31.5 L (32.0-37.0) g/dL Immature Gran # 0.10 H (0.00-0.04) X 10*3/uL Neutrophils # 11.51 H (1.80-7.70) X 10*3/uL Lymphocytes # 0.18 L (0.90-5.00) X 10*3/uL Eosinophils # 0 L (0.04-0.35) X 10*3/uL PT (9.9-11.9) sec INR (0.90-1.11) BUN 28.0 H (9.0-27.0) mg/dL BUN/Creatinine Ratio 35.00 H (12.00-20.00) Ratio Glucose 147 H (70-110) mg/dL POC Glucose (mg/dL) 125 H (75-99) mg/dL Albumin 3.70 L (3.80-4.90) g/dL Albumin/Globulin Ratio 1.23 L (1.60-3.17) g/dL 06/15/21 Range/Units 16:41 WBC (4.50-10.00) X 10*3/uL RBC (4.40-5.60) X 10*6/uL MCV (80.0-97.0) fL MCHC (32.0-37.0) g/dL Immature Gran # (0.00-0.04) X 10*3/uL Neutrophils # (1.80-7.70) X 10*3/uL Lymphocytes # (0.90-5.00) X 10*3/uL Eosinophils # (0.04-0.35) X 10*3/uL PT (9.9-11.9) sec INR (0.90-1.11) BUN (9.0-27.0) mg/dL BUN/Creatinine Ratio (12.00-20.00) Ratio Glucose (70-110) mg/dL POC Glucose (mg/dL) 156 H (75-99) mg/dL Albumin (3.80-4.90) g/dL Albumin/Globulin Ratio (1.60-3.17) g/dL Microbiology - Last 24 Hours (Table) 06/11/21 13:59 Blood Culture - Preliminary Blood No Growth after 96 hours Assessment and Plan Assessment: Interstitial pneumonia Leukocytosis Acute exacerbation of chronic obstructive pulmonary disease Hypertension Hyperlipidemia Osteoarthritis History of arrhythmias History of aortic valve replacement History of prostate cancer History of permanent pacemaker Carotid artery stenosis History of nicotine dependence Full code Plan: Interstitial pneumonia, IVP antibiotics discontinued transitioned to oral antibiotics Acute exacerbation of COPD, initiated on oral corticosteroids Continue to monitor vital signs and diagnostic testing Continue home medications Further recommendations to come based on patient's clinical condition Hopeful discharge in 24 hours Time with Patient: Greater than 30
[2021-06-15 21:03] LABS: Glucose,Whole Blood 153 mg/dL (75-99)
[2021-06-15] MEDS: predniSONE 20 MG TAB PO SCH (21:35)
[2021-06-15] MEDS: ATORVASTATIN 80 MG TAB PO SCH (21:35)
[2021-06-15] MEDS: CEFDINIR 300 MG CAP PO SCH (21:36)
[2021-06-16] MEDS: SODIUM CHLORIDE 0.9% 1,000 ML IV SCH ×2 (02:21→06:47)
[2021-06-16 06:42] LABS: Glucose,Whole Blood 122 mg/dL (75-99)
[2021-06-16] MEDS: INSULIN ASPART (NovoLOG) 100 UNIT/ML VIAL SQ SCH ×2 (06:59→11:51)
[2021-06-16 07:28] LABS: INR 2.9 (<1.2); Prothrombin Time 28.2 sec (9.0-12.0)
[2021-06-16 07:35] LABS: Basophils % (A) 0 %; Eosinophils # (A) 0.1 k/uL (0-0.7); Eosinophils % (A) 1 %; Lymphocytes # (A) 0.3 k/uL (1.0-4.8); Lymphocytes % (A) 2 %; MCH 30.5 pg (25.0-35.0); MCHC 31.5 g/dL (31.0-37.0); MCV 96.8 fL (80.0-100.0); Mean Platelet Volume 8.5; Monocytes # (A) 0.7 k/uL (0-1.0); Monocytes % (A) 6 %; Neutrophils # (A) 11.7 k/uL (1.3-7.7); Neutrophils % (A) 90 %; Platelet Count 191 k/uL (150-450); RBC 3.92 m/uL (4.30-5.90); RDW 14.4 % (11.5-15.5)
[2021-06-16 07:42] VITALS: BP 165/70; PULSE 62; RESP 17; TEMP 97.6
[2021-06-16] MEDS: AMIODARONE 200 MG TAB PO SCH (08:19)
[2021-06-16] MEDS: CEFDINIR 300 MG CAP PO SCH (08:19)
[2021-06-16] MEDS: predniSONE 20 MG TAB PO SCH (08:19)
[2021-06-16] MEDS: METOPROLOL TARTRATE 25 MG TAB PO SCH (08:19)
[2021-06-16] MEDS: AZITHROMYCIN 500 MG TAB PO SCH (08:19)
[2021-06-16] MEDS: ASCORBIC ACID 500 MG TAB PO SCH (08:19)
[2021-06-16] MEDS: amLODIPine 5 MG TAB PO SCH (08:19)
[2021-06-16] MEDS: CHOLECALCIFEROL 25 MCG (1000 IU) TABLET PO SCH (08:19)
[2021-06-16] MEDS: IPRATROPIUM-ALBUTEROL 3 ML NEB INHALATION SCH ×2 (08:44→11:41)
--- NOTE | 2021-06-16 11:16 | P.PN ---
Progress Note - Text Progress Note Date: 06/16/21 PATIENT WILL REQUIRE NEBULIZER WITH DUONEB TREATMENTS FOR CONTROL OF STAGE 4 COPD
[2021-06-16 11:47] LABS: African American GFR (CKD) 97.1 (60.0-200.0); Albumin 3.3 g/dL (3.80-4.90); Albumin/Globulin Ratio 1.22 (1.60-3.17); Anion Gap 7.5 mmol/L (4.00-12.00); BUN/Creat Ratio 38.75 Ratio (12.00-20.00); Calcium 8.5 mg/dL (8.7-10.3); Carbon Dioxide 29.5 mmol/L (21.6-31.8); Globulin 2.7 g/dL (1.6-3.3); Non-African American GFR(CKD) 83.8 (60.0-200.0); Potassium 4.2 mmol/L (3.5-5.5); Total Bilirubin 0.4 mg/dL (0.3-1.2)
[2021-06-16 11:53] LABS: Glucose,Whole Blood 100 mg/dL (75-99)
[2021-06-16] MEDS ORDERED: WARFARIN 1 MG TAB PO ONE (18:00)
--- NOTE | 2021-06-17 06:31 | P.DS ---
Providers Date of admission: 06/11/21 16:25 Expected date of discharge: 06/16/21 Attending physician: Coleman Nugent Consults: 06/12/21 11:46 Consult Physician Routine Consulting Provider: Arturo Walker Consult Reason/Comments: copd Do you want consulting provider notified?: Yes Primary care physician: Coleman Nugent Hospital Course: 81-year-old male presented to the hospital for complaint of shortness of breath, exertional dyspnea, and generalized weakness. Patient was found to have a interstitial pneumonia, and acute exacerbation of COPD. Patient was treated with broad-spectrum antibiotics, corticosteroids, and breathing treatments. Patient tolerated hospital stay well, significant improvement throughout hospital stay for interstitial pneumonia and acute exacerbation of COPD. Consultation is provided from pulmonology perspective on acute exacerbation of COPD. Patient was transitioned to oral antibiotics, and corticosteroids for acute exacerbation of COPD. patient will require nebulized with albuterol and Atrovent for control of COPD exacerbation. Patient will need close follow-up with primary care and pulmonology. Prognosis is guarded upon discharge Assessment: Interstitial pneumonia Leukocytosis Acute exacerbation of chronic obstructive pulmonary disease Hypertension Hyperlipidemia Osteoarthritis History of arrhythmias History of aortic valve replacement History of prostate cancer History of permanent pacemaker Carotid artery stenosis History of nicotine dependence Final diagnosis Interstitial pneumonia Acute exacerbation of chronic obstructive pulmonary disease Health Concerns: Multiple comorbidities Complexity of treatment plan Pertinent Studies: Serial chest x-rays, consistent with COPD exacerbation Procedures: No procedures performed during hospital stay Patient Condition at Discharge: Fair Plan - Discharge Summary Discharge Rx Participant: Yes New Discharge Prescriptions: New Melatonin 6 mg PO HS PRN #30 tablet PRN Reason: Insomnia Cefdinir [Omnicef] 300 mg PO BID 4 Days #8 cap predniSONE See Taper PO DIRECTED #60 tab Ipratropium-Albuterol Nebulize [Duoneb 0.5 mg-3 mg/3 ml Soln] 3 ml INHALATION RT-QID #4 box Fluticasone/Umeclidin/Vilanter [Trelegy Ellipta 100-62.5-25] 1 inhalation INHALATION DAILY #1 device Azithromycin [Zithromax] 250 mg PO Q24HR 4 Days #4 tab Continue amLODIPine [Norvasc] 5 mg PO BID Ascorbic Acid [Vitamin C] 500 mg PO BID #20 tab Atorvastatin [Lipitor] 80 mg PO HS #30 tab HYDROcodone/APAP 5-325MG [[place] 5-325] 1 tab PO BID PRN #10 tab PRN Reason: Pain Warfarin [Coumadin] 3 mg PO SUTUWEFRSA Warfarin [Coumadin] 5 mg PO MOTH Metoprolol Tartrate [Lopressor] 25 mg PO BID Cholecalciferol [Vitamin D3 (25 Mcg = 1000 Iu)] 50 mcg PO DAILY #20 tablet Amiodarone HCl [Pacerone] 200 mg PO DAILY Discontinued Cefdinir [Omnicef] 300 mg PO Q12HR Discharge Medication List amLODIPine [Norvasc] 5 mg PO BID 05/14/19 [History] Ascorbic Acid [Vitamin C] 500 mg PO BID #20 tab 03/05/21 [Rx] Cholecalciferol [Vitamin D3 (25 Mcg = 1000 Iu)] 50 mcg PO DAILY #20 tablet 03/05/21 [Rx] Atorvastatin [Lipitor] 80 mg PO HS #30 tab 03/20/21 [Rx] HYDROcodone/APAP 5-325MG [[place] 5-325] 1 tab PO BID PRN #10 tab 03/20/21 [Rx] Amiodarone HCl [Pacerone] 200 mg PO DAILY 04/12/21 [History] Warfarin [Coumadin] 3 mg PO SUTUWEFRSA 04/12/21 [History] Warfarin [Coumadin] 5 mg PO MOTH 04/12/21 [History] Metoprolol Tartrate [Lopressor] 25 mg PO BID 06/11/21 [History] Azithromycin [Zithromax] 250 mg PO Q24HR 4 Days #4 tab 06/16/21 [Rx] Cefdinir [Omnicef] 300 mg PO BID 4 Days #8 cap 06/16/21 [Rx] Fluticasone/Umeclidin/Vilanter [Trelegy Ellipta 100-62.5-25] 1 inhalation INHALATION DAILY #1 device 06/16/21 [Rx] Ipratropium-Albuterol Nebulize [Duoneb 0.5 mg-3 mg/3 ml Soln] 3 ml INHALATION RT-QID #4 box 06/16/21 [Rx] Melatonin 6 mg PO HS PRN #30 tablet 06/16/21 [Rx] predniSONE See Taper PO DIRECTED #60 tab 06/16/21 [Rx] Follow up Appointment(s)/Referral(s): Coleman Nugent MD [Primary Care Provider] - 06/23/21 3:00 pm [facility] [NON-STAFF] - As Needed [facility] [NON-STAFF] - As Needed (nebulizer) Patient Instructions/Handouts: Pneumonitis (IP), How to Use an Incentive Spirometer (GEN), COPD (Chronic Obstructive Pulmonary Disease) (IP), How to Use a Nebulizer (GEN) Activity/Diet/Wound Care/Special Instructions: please contact for new or worsening of symptoms Steroid Taper: 40mg (4 tablets) for 3 days, 30mg (3 tablets) for 3 days, 20mg (2 tablets) for 3 days, 10mg (1 tablet) for 3 days. Discharge Disposition: HOME WITH HOME HEALTH SERVICES
== END 2021-06-16 15:06 | disposition home health service (06) | DRG 177 ==
LOC: EC 12:44 → 4SSUR 16:25
PROVIDERS: ADMIT Family Medicine; ATTEND Family Medicine
DX: J15.6 Pneumonia due to other Gram-negative bacteria (principal); I50.43 Acute on chronic combined systolic (congestive) and diastolic (congestive) heart failure; J44.0 Chronic obstructive pulmonary disease with (acute) lower respiratory infection; J44.1 Chronic obstructive pulmonary disease with (acute) exacerbation; E87.1 Hypo-osmolality and hyponatremia; J84.9 Interstitial pulmonary disease, unspecified; I11.0 Hypertensive heart disease with heart failure; E66.9 Obesity, unspecified; E87.5 Hyperkalemia; I65.29 Occlusion and stenosis of unspecified carotid artery; E78.5 Hyperlipidemia, unspecified; M19.90 Unspecified osteoarthritis, unspecified site; F32.9 Major depressive disorder, single episode, unspecified; Z68.37 Body mass index [BMI] 37.0-37.9, adult; Z95.2 Presence of prosthetic heart valve; Z95.0 Presence of cardiac pacemaker; Z88.8 Allergy status to other drugs, medicaments and biological substances; Z79.899 Other long term (current) drug therapy; Z79.01 Long term (current) use of anticoagulants; Z85.46 Personal history of malignant neoplasm of prostate; Z87.891 Personal history of nicotine dependence; Z87.01 Personal history of pneumonia (recurrent)
CPT/HCPCS: 36415; 71046; 71275; 80048; 80053; 81003; 82550; 83605; 83735; 83880; 84484; 85025; 85379; 85610; 85730; 86738; 87040; 87449; 87502; 87635; 93005; 94640; 94760; 99285

== ENCOUNTER 2021-06-28 07:27 | Inpatient (IN) | payer MEDICARE ==
--- NOTE | 2021-06-28 08:15 | ED ---
General Adult HPI - General Chief complaint: Shortness of Breath Stated complaint: MUNIRA Time Seen by Provider: 06/28/21 07:40 Source: patient, EMS Mode of arrival: EMS Limitations: no limitations - History of Present Illness Initial comments: 81-year-old male with a past medical history of hyperlipidemia, hypertension, pneumonia, aortic valve replacement presents to the emergency room for a chief complaint of shortness of breath. Patient states this started about 3 days or so ago. Patient states is worse with walking. Patient denies any chest pain or fevers. Denies cough. Patient also states he has blood in his urine that just started a day or 2 ago.Patient has no other complaints at this time including chest pain, abdominal pain, nausea or vomiting, headache, or visual changes. - Related Data Home Medications Medication Instructions Recorded Confirmed amLODIPine [Norvasc] 5 mg PO BID 05/14/19 06/28/21 Amiodarone HCl [Pacerone] 200 mg PO DAILY 04/12/21 06/28/21 Warfarin [Coumadin] 3 mg PO SUTUWEFRSA 04/12/21 06/28/21 Warfarin [Coumadin] 5 mg PO MOTH 04/12/21 06/28/21 Metoprolol Tartrate [Lopressor] 25 mg PO BID 06/11/21 06/28/21 Fluticasone/Umeclidin/Vilanter 1 puff INHALATION RT-DAILY 06/28/21 06/28/21 [Trelecristo Ellipta 100-62.5-25] predniSONE See Taper PO DAILY 06/28/21 06/28/21 Previous Rx's Medication Instructions Recorded Ascorbic Acid [Vitamin C] 500 mg PO BID #20 tab 03/05/21 Cholecalciferol [Vitamin D3 (25 50 mcg PO DAILY #20 tablet 03/05/21 Mcg = 1000 Iu)] Atorvastatin [Lipitor] 80 mg PO HS #30 tab 03/20/21 HYDROcodone/APAP 5-325MG [[place] 1 tab PO BID PRN #10 tab 03/20/21 5-325] Ipratropium-Albuterol Nebulize 3 ml INHALATION RT-QID #4 box 06/16/21 [Duoneb 0.5 mg-3 mg/3 ml Soln] Melatonin 6 mg PO HS PRN #30 tablet 06/16/21 Allergies Allergy/AdvReac Type Severity Reaction Status Date / Time dopamine Allergy "WAS TOLD Verified 06/28/21 08:29 NOT TO HAVE RX AGAIN,VERY ILL STATES ALMOST " Review of Systems ROS Statement: Those systems with pertinent positive or pertinent negative responses have been documented in the HPI. ROS Other: All systems not noted in ROS Statement are negative. Past Medical History Past Medical History: Cancer, Hyperlipidemia, Hypertension, Osteoarthritis (OA), Pneumonia, Prostate Disorder Additional Past Medical History / Comment(s): ARRYTHYTHMIA,AORTIC VALVE REPLAC EMENT,PROSTATE CANCER, History of Any Multi-Drug Resistant Organisms: None Reported Past Surgical History: Cardiac Valve Replacement, Tonsillectomy Additional Past Surgical History / Comment(s): vasectomy. carotid artery Past Anesthesia/Blood Transfusion Reactions: No Reported Reaction Past Psychological History: Depression Smoking Status: Former smoker Past Alcohol Use History: None Reported Past Drug Use History: None Reported - Past Family History Mother Family Medical History: Cancer General Exam Limitations: no limitations General appearance: alert, in no apparent distress Head exam: Present: atraumatic Eye exam: Present: normal appearance, PERRL, EOMI. Absent: scleral icterus, conjunctival injection ENT exam: Present: normal exam, mucous membranes moist Neck exam: Present: normal inspection, full ROM. Absent: tenderness Respiratory exam: Present: normal lung sounds bilaterally. Absent: respiratory distress, wheezes Cardiovascular Exam: Present: regular rate, normal rhythm, normal heart sounds GI/Abdominal exam: Present: soft, normal bowel sounds. Absent: distended, tenderness Course Vital Signs 06/28/21 06/28/21 07:29 09:34 Temperature 98.2 F 97.7 F Pulse Rate 70 72 Respiratory 18 18 Rate Blood Pressure 127/68 151/62 O2 Sat by Pulse 95 100 Oximetry EKG Findings - EKG Comments: EKG Findings:: Ventricular paced rhythm, ventricular rate 76, ND interval 224, QRS duration 194 Medical Decision Making - Medical Decision Making Vitals are stable. No acute wrist or distress. Laboratory evaluation was initiated. CBC reveals leukocytosis. Hemoglobin stable at 12.4. CMP does reveal slight dehydration. BNP appears to be baseline. Chest x-ray was compared to previous chest x-ray and does appear similar. Impression reads correlate for pulmonary venous hypertension and interstitial edema and a patient with pre-existing COPD underlying interstitial lung disease and possible pulmonary artery hypertension. This could because of patient's shortness of breath. Patient also has eri hematuria with an INR of 5.9. Case is discussed with Dr. Mack. At this time we will admit patient. Recommends 5 mg IV vitamin K. We will also give patient Rocephin given his leukocytosis with 182 white blood cells in the urine. Also requests consultation to Dr. Walker for recent shortness of breath as he has seen him in the past. - Lab Data Result diagrams: 06/28/21 08:09 06/28/21 08:09 Lab Results 06/28/21 06/28/21 06/28/21 Range/Units 08:09 08:09 08:09 WBC 14.3 H (3.8-10.6) k/uL RBC 3.84 L (4.30-5.90) m/uL Hgb 12.4 L (13.0-17.5) gm/dL Hct 37.2 L (39.0-53.0) % MCV 96.7 (80.0-100.0) fL MCH 32.2 (25.0-35.0) pg MCHC 33.3 (31.0-37.0) g/dL RDW 15.8 H (11.5-15.5) % Plt Count 134 L (150-450) k/uL MPV 8.7 Neutrophils % 90 % Lymphocytes % 3 % Monocytes % 5 % Eosinophils % 0 % Basophils % 0 % Neutrophils # 12.8 H (1.3-7.7) k/uL Lymphocytes # 0.5 L (1.0-4.8) k/uL Monocytes # 0.8 (0-1.0) k/uL Eosinophils # 0.0 (0-0.7) k/uL Basophils # 0.0 (0-0.2) k/uL Hypochromasia Slight PT 57.3 H (9.0-12.0) sec INR 5.9 H* (<1.2) APTT 48.0 H (22.0-30.0) sec D-Dimer <0.17 (<0.60) mg/L FEU Sodium 134 L (137-145) mmol/L Potassium 4.2 (3.5-5.1) mmol/L Chloride 100 (98-107) mmol/L Carbon Dioxide 29 (22-30) mmol/L Anion Gap 5 mmol/L BUN 24 H (9-20) mg/dL Creatinine 0.82 (0.66-1.25) mg/dL Est GFR (CKD-EPI)AfAm >90 (>60 ml/min/1.73 sqM) Est GFR (CKD-EPI)NonAf 83 (>60 ml/min/1.73 sqM) Glucose 101 H (74-99) mg/dL Plasma Lactic Acid Omi (0.7-2.0) mmol/L Calcium 8.9 (8.4-10.2) mg/dL Total Bilirubin 0.7 (0.2-1.3) mg/dL AST 30 (17-59) U/L ALT 19 (4-49) U/L Alkaline Phosphatase 81 (38-126) U/L Troponin I (0.000-0.034) ng/mL NT-Pro-B Natriuret Pep pg/mL Total Protein 6.2 L (6.3-8.2) g/dL Albumin 3.5 (3.5-5.0) g/dL Urine Color Urine Appearance (Clear) Urine RBC (0-5) /hpf Urine WBC (0-5) /hpf Urine Bacteria (None) /hpf Urine Mucus (None) /hpf Coronavirus (PCR) (Not Detectd) 06/28/21 06/28/21 06/28/21 Range/Units 08:09 08:09 08:09 WBC (3.8-10.6) k/uL RBC (4.30-5.90) m/uL Hgb (13.0-17.5) gm/dL Hct (39.0-53.0) % MCV (80.0-100.0) fL MCH (25.0-35.0) pg MCHC (31.0-37.0) g/dL RDW (11.5-15.5) % Plt Count (150-450) k/uL MPV Neutrophils % % Lymphocytes % % Monocytes % % Eosinophils % % Basophils % % Neutrophils # (1.3-7.7) k/uL Lymphocytes # (1.0-4.8) k/uL Monocytes # (0-1.0) k/uL Eosinophils # (0-0.7) k/uL Basophils # (0-0.2) k/uL Hypochromasia PT (9.0-12.0) sec INR (<1.2) APTT (22.0-30.0) sec D-Dimer (<0.60) mg/L FEU Sodium (137-145) mmol/L Potassium (3.5-5.1) mmol/L Chloride (98-107) mmol/L Carbon Dioxide (22-30) mmol/L Anion Gap mmol/L BUN (9-20) mg/dL Creatinine (0.66-1.25) mg/dL Est GFR (CKD-EPI)AfAm (>60 ml/min/1.73 sqM) Est GFR (CKD-EPI)NonAf (>60 ml/min/1.73 sqM) Glucose (74-99) mg/dL Plasma Lactic Acid Omi 1.4 (0.7-2.0) mmol/L Calcium (8.4-10.2) mg/dL Total Bilirubin (0.2-1.3) mg/dL AST (17-59) U/L ALT (4-49) U/L Alkaline Phosphatase (38-126) U/L Troponin I 0.021 (0.000-0.034) ng/mL NT-Pro-B Natriuret Pep 2400 pg/mL Total Protein (6.3-8.2) g/dL Albumin (3.5-5.0) g/dL Urine Color Urine Appearance (Clear) Urine RBC (0-5) /hpf Urine WBC (0-5) /hpf Urine Bacteria (None) /hpf Urine Mucus (None) /hpf Coronavirus (PCR) (Not Detectd) 06/28/21 06/28/21 Range/Units 08:18 09:24 WBC (3.8-10.6) k/uL RBC (4.30-5.90) m/uL Hgb (13.0-17.5) gm/dL Hct (39.0-53.0) % MCV (80.0-100.0) fL MCH (25.0-35.0) pg MCHC (31.0-37.0) g/dL RDW (11.5-15.5) % Plt Count (150-450) k/uL MPV Neutrophils % % Lymphocytes % % Monocytes % % Eosinophils % % Basophils % % Neutrophils # (1.3-7.7) k/uL Lymphocytes # (1.0-4.8) k/uL Monocytes # (0-1.0) k/uL Eosinophils # (0-0.7) k/uL Basophils # (0-0.2) k/uL Hypochromasia PT (9.0-12.0) sec INR (<1.2) APTT (22.0-30.0) sec D-Dimer (<0.60) mg/L FEU Sodium (137-145) mmol/L Potassium (3.5-5.1) mmol/L Chloride (98-107) mmol/L Carbon Dioxide (22-30) mmol/L Anion Gap mmol/L BUN (9-20) mg/dL Creatinine (0.66-1.25) mg/dL Est GFR (CKD-EPI)AfAm (>60 ml/min/1.73 sqM) Est GFR (CKD-EPI)NonAf (>60 ml/min/1.73 sqM) Glucose (74-99) mg/dL Plasma Lactic Acid Omi (0.7-2.0) mmol/L Calcium (8.4-10.2) mg/dL Total Bilirubin (0.2-1.3) mg/dL AST (17-59) U/L ALT (4-49) U/L Alkaline Phosphatase (38-126) U/L Troponin I (0.000-0.034) ng/mL NT-Pro-B Natriuret Pep pg/mL Total Protein (6.3-8.2) g/dL Albumin (3.5-5.0) g/dL Urine Color Red Urine Appearance Bloody (Clear) Urine RBC >182 H (0-5) /hpf Urine WBC >182 H (0-5) /hpf Urine Bacteria Moderate H (None) /hpf Urine Mucus Occasional H (None) /hpf Coronavirus (PCR) Not Detected (Not Detectd) Disposition Clinical Impression: Shortness of breath, Interstitial edema, Elevated INR, Eri hematuria Disposition: ADMITTED IP TO THIS HOSP Is patient prescribed a controlled substance at d/c from ED?: No Referrals: Coleman Nugent MD [Primary Care Provider] - 1-2 days Time of Disposition: 11:21
[2021-06-28 08:22] LABS: Basophils % (A) 0 %; Eosinophils % (A) 0 %; HCT 37.2 % (39.0-53.0); HGB 12.4 gm/dL (13.0-17.5); Hypochromasia Slight; Lymphocytes # (A) 0.5 k/uL (1.0-4.8); Lymphocytes % (A) 3 %; MCH 32.2 pg (25.0-35.0); MCHC 33.3 g/dL (31.0-37.0); MCV 96.7 fL (80.0-100.0); Mean Platelet Volume 8.7; Monocytes # (A) 0.8 k/uL (0-1.0); Monocytes % (A) 5 %; Neutrophils # (A) 12.8 k/uL (1.3-7.7); Neutrophils % (A) 90 %; Platelet Count 134 k/uL (150-450); RBC 3.84 m/uL (4.30-5.90); RDW 15.8 % (11.5-15.5); WBC 14.3 k/uL (3.8-10.6)
[2021-06-28 08:39] LABS: ALT 19 U/L (4-49); AST 30 U/L (17-59); African American GFR (CKD) >90 (>60 ml/min/1.73 sqM); Albumin 3.5 g/dL (3.5-5.0); Alkaline Phosphatase 81 U/L (38-126); Anion Gap 5 mmol/L; Blood Urea Nitrogen 24 mg/dL (9-20); Calcium 8.9 mg/dL (8.4-10.2); Carbon Dioxide 29 mmol/L (22-30); Chloride 100 mmol/L (98-107); Glucose 101 mg/dL (74-99); Non-African American GFR(CKD) 83 (>60 ml/min/1.73 sqM); Potassium 4.2 mmol/L (3.5-5.1); Sodium 134 mmol/L (137-145); Total Bilirubin 0.7 mg/dL (0.2-1.3); Total Protein 6.2 g/dL (6.3-8.2)
[2021-06-28 08:44] LABS: Prothrombin Time 57.3 sec (9.0-12.0)
[2021-06-28 08:51] LABS: INR 5.9 (<1.2)
--- NOTE | 2021-06-28 09:26 | XR ---
EXAMINATION TYPE: XR chest 2V DATE OF EXAM: 06/28/2021 COMPARISON: Chest x-ray 06/15/2021, CT chest 06/12/2021 HISTORY: Difficulty breathing TECHNIQUE: Frontal and lateral views of the chest are obtained on 3 images. FINDINGS: There are prominent lung volumes as on prior exam. Heart remains enlarged. Patient is post median sternotomy, pacemaker is unchanged. No evident pneumothorax or pleural effusion. Central vasc ularity and interstitium are increased. 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 IMPRESSION: Correlate for pulmonary venous hypertension and interstitial edema in a patient with pre -existing COPD, patient with underlying interstitial lung disease, possible pulmonary artery hyperten gisselle
[2021-06-28 09:52] LABS: Bacteria,Urine Moderate /hpf; Mucus,Urine Occasional /hpf; RBC,Urine >182 /hpf (0-5); WBC,Urine >182 /hpf (0-5)
[2021-06-28 09:53] LABS: Appearance,Urine Bloody (Clear)
[2021-06-28 09:54] LABS: Color,Urine Red
[2021-06-28] MEDS ORDERED: PHYTONADIONE 5 MG in SODIUM CHLORIDE 0.9% 50 ML IVPB STA (10:59)
[2021-06-28] MEDS ORDERED: cefTRIAXone IN SWFI 1,000 MG/10 ML SYRINGE IVP STA (11:16)
[2021-06-28] MEDS ORDERED: FUROSEMIDE 10 MG/ML 4 ML VIAL IV STA (11:20)
[2021-06-28] MEDS ORDERED: NALOXONE 0.4 MG/ML 1 ML VIAL IV PRN (11:22)
[2021-06-28] MEDS ORDERED: MELATONIN 3 MG TABLET PO PRN (11:24)
[2021-06-28] MEDS ORDERED: HYDROcodone/APAP 5-325MG 1 EACH TAB PO PRN (11:25)
[2021-06-28 13:33] LABS: INR 4.7 (<1.2); Prothrombin Time 44.9 sec (9.0-12.0)
[2021-06-28 13:34] LABS: Glucose,Whole Blood 122 mg/dL (75-99)
[2021-06-28] MEDS: methylPREDNISolone SOD SUCCI 125 MG/2 ML VIAL IV SCH ×2 (14:04→17:44)
[2021-06-28] MEDS: IPRATROPIUM-ALBUTEROL 3 ML NEB INHALATION SCH ×3 (15:14→19:41)
--- NOTE | 2021-06-28 16:22 | HP ---
HISTORY AND PHYSICAL CHIEF COMPLAINTS: Hematuria as well as shortness of breath. HISTORY OF PRESENT ILLNESS: This 81-year-old gentleman with a past medical history of multiple medical problems, being followed by Dr. Coleman Nugent in the outpatient setting, was recently admitted to [facility] with complaints of COPD, acute exacerbation, as well as possible interstitial pneumonia. The patient improved significantly. The patient went home and currently the patient is complaining of some shortness of breath as well as eri hematuria. There were no clots. The INR was found to be elevated up to 5.9, Coumadin coagulopathy. There is no history of any fever, rigors, chills at this time. Chest x- ray showed some congestion and possible pneumonia on the right side also. Urine examination grossly abnormal with multiple WBCs and urine bacteria also. Empiric antibiotics were initiated. Covid-19 is negative. PAST MEDICAL HISTORY: History of recent COPD, history of hypertension, hyperlipidemia, history of DJD, history of pneumonia, history of cardiac catheterization, aortic valve replacement, prostate cancer. HOME MEDICATIONS: Prednisone, Norvasc, Coumadin, Lopressor, DuoNeb, [place], Trelegy, vitamin D3, Lipitor, vitamin C, . Doses are reviewed. ALLERGIES: DOPAMINE. FAMILY HISTORY: History of cancer in the family. SOCIAL HISTORY: Previous history of smoking. No history of alcohol intake. REVIEW OF SYSTEMS: ENT: Diminished hearing. Diminished vision. CARDIOVASCULAR SYSTEM: As mentioned earlier. RESPIRATORY SYSTEM: As mentioned earlier. GI: As mentioned earlier. : As mentioned earlier. NERVOUS SYSTEM: No numbness, weakness. ALLERGY/IMMUNOLOGY: No asthma, hayfever. MUSCULOSKELETAL: As mentioned earlier. HEMATOLOGY/ONCOLOGY: As mentioned earlier. ENDOCRINE: As mentioned earlier. CONSTITUTIONAL: As mentioned earlier. RHEUMATOLOGY: Negative. PSYCHIATRY: As mentioned earlier. PHYSICAL EXAMINATION: Patient is alert and oriented x3. Pulse is 72, blood pressure 151/60, respiration 18, temperature 97.2, pulse ox 100% on 2 L. HEENT: Conjunctivae normal. Oral mucosa moist. NECK: No jugular venous distention. No carotid bruit. No lymph node enlargement. CARDIOVASCULAR: S1, S2 muffled. No S3. No S4. RESPIRATION: Breath sounds diminished at the bases. A few scattered rhonchi and crackles. ABDOMEN: Soft, obese, non-tender. No mass palpable. LEGS: No edema. No swelling. NERVOUS SYSTEM: Higher functions as mentioned earlier. Moves all 4 limbs. No focal motor or sensory deficit. Mild diffuse weakness. LYMPHATICS: No lymph node palpable in neck, axillae or groin. SKIN: No ulcer, rash, bleeding. JOINTS: No active deforming arthropathy. LABS: WBC 14.3, hemoglobin 12.4, platelets 134. INR is 5.9. Sodium 134. ASSESSMENT: 1. Shortness of breath, possibly chronic obstructive pulmonary disease, acute exacerbation, with right upper lobe pneumonia. Consider healthcare-acquired pneumonia. 2. Hematuria. 3. Coumadin coagulopathy. 4. Increased white count. 5. Anemia. 6. Thrombocytopenia, mild. 7. Possible acute urinary tract infection, present on admission. 8. Hypertension. 9. Hyperlipidemia. 10.History of degenerative joint disease. 11.History of pneumonia. 12.History of prostate disorder. 13.History of cardiac arrhythmia. 14.History aortic replacement. 15.History of prostate cancer. 16.History of tonsillectomy. 17.History of depression. 18.History of nicotine dependence. 19.FULL CODE. RECOMMENDATIONS AND DISCUSSION: In this 81-year-old gentleman who presented with multiple complex medical issues, we will monitor the patient closely, continue the current medications, continue symptomatic treatment. Otherwise, intensive bronchodilators, empiric antibiotics. I would also recommend vitamin K to reverse the Coumadin coagulopathy because of the active continuing hematuria. We will continue to monitor. If the hematuria persists, urology evaluation. Otherwise, prognosis is guarded because of multiple complex medical issues. Further recommendations to follow. A copy of this dictation is being forwarded to Dr. Nugent, who is the primary physician. Dr. Nugent will follow tomorrow. MMODL / IJN: [id number] / [facility]
--- NOTE | 2021-06-28 16:54 | P.CNPUL ---
History of Present Illness Consult date: 06/28/21 Reason for consult: dyspnea, cough Chief complaint: Shortness of breath and increased swelling of the lower extremity History of present illness: Patient is a 81-year-old with the increasing shortness of breath also have lower extremity swelling symptoms started about 3-4 day coming into the hospital, denies any chest pain or radiation with denies any fever or chills, patient also had intermittent scratchy throat, however no obvious thrush has been noted, patient is on 2 L oxygen, review of the data revealed that INR is super therapeutic 5.9 white cell count is 14,000, COVID-19 negative chemistry within normal BNP is over 2400, chest x-ray consistent with interstitial edema and fluid overload Review of Systems All systems: negative Past Medical History Past Medical History: Cancer, COPD, Hyperlipidemia, Hypertension, Osteoarthritis (OA), Pneumonia, Prostate Disorder Additional Past Medical History / Comment(s): ARRYTHYTHMIA,AORTIC VALVE REPLACEMENT,PROSTATE CANCER, History of Any Multi-Drug Resistant Organisms: None Reported Past Surgical History: Cardiac Valve Replacement, Pacemaker, Tonsillectomy Additional Past Surgical History / Comment(s): vasectomy. carotid artery. Permanent Pacemaker by Dr Clark Past Anesthesia/Blood Transfusion Reactions: No Reported Reaction Past Psychological History: Depression Smoking Status: Former smoker Past Alcohol Use History: None Reported Additional Past Alcohol Use History / Comment(s): STARTED SMOKING AT AGE 13 QUIT 1998 [id number] Past Drug Use History: None Reported - Past Family History Mother Family Medical History: Cancer Medications and Allergies Home Medications Medication Instructions Recorded Confirmed Type amLODIPine [Norvasc] 5 mg PO BID 05/14/19 06/28/21 History Ascorbic Acid [Vitamin C] 500 mg PO BID #20 tab 03/05/21 06/28/21 Rx Cholecalciferol [Vitamin D3 (25 50 mcg PO DAILY #20 tablet 03/05/21 06/28/21 Rx Mcg = 1000 Iu)] Atorvastatin [Lipitor] 80 mg PO HS #30 tab 03/20/21 06/28/21 Rx HYDROcodone/APAP 5-325MG [[place] 1 tab PO BID PRN #10 tab 03/20/21 06/28/21 Rx 5-325] Amiodarone HCl [Pacerone] 200 mg PO DAILY 04/12/21 06/28/21 History Warfarin [Coumadin] 3 mg PO SUTUWEFRSA 04/12/21 06/28/21 History Warfarin [Coumadin] 5 mg PO MOTH 04/12/21 06/28/21 History Metoprolol Tartrate [Lopressor] 25 mg PO BID 06/11/21 06/28/21 History Ipratropium-Albuterol Nebulize 3 ml INHALATION RT-QID #4 box 06/16/21 06/28/21 Rx [Duoneb 0.5 mg-3 mg/3 ml Soln] Melatonin 6 mg PO HS PRN #30 tablet 06/16/21 06/28/21 Rx Fluticasone/Umeclidin/Vilanter 1 puff INHALATION RT-DAILY 06/28/21 06/28/21 History [Lee Zeng 100-62.5-25] predniSONE See Taper PO DAILY 06/28/21 06/28/21 History Allergies Allergy/AdvReac Type Severity Reaction Status Date / Time dopamine Allergy "WAS TOLD Verified 06/28/21 08:29 NOT TO HAVE RX AGAIN,VERY ILL STATES ALMOST " methylprednisolone AdvReac Hallucinati Verified 06/28/21 15:56 [From Solu-Medrol] ons Physical Exam Vitals: Vital Signs Temp Pulse Pulse Resp BP BP Pulse Ox 06/28/21 15:00 97.6 F 66 18 145/68 97 06/28/21 12:35 97.5 F L 74 24 121/56 100 06/28/21 09:34 97.7 F 72 18 151/62 100 06/28/21 07:29 98.2 F 70 18 127/68 95 Intake and Output 06/28/21 06/28/21 06/28/21 06:59 14:59 22:59 Output Total 1000 850 Balance -1000 -850 Output: Urine 1000 850 Other: Voiding Method Urinal Weight 99.79 kg - Constitutional General appearance: average body habitus, cooperative, disheveled - EENT Eyes: PERRLA Ears: bilateral: normal - Neck Neck: normal ROM Carotids: bilateral: upstroke normal Thyroid: bilateral: enlarged - Respiratory Respiratory: bilateral: diminished, rales (Bilateral basal) - Cardiovascular Rhythm: regular Heart sounds: normal: S1, S2 - Gastrointestinal General gastrointestinal: normal bowel sounds - Integumentary +2-3 edema bilaterally legs Integumentary: decreased turgor - Neurologic Neurologic: CNII-XII intact - Musculoskeletal Musculoskeletal: gait normal, generalized weakness, strength equal bilaterally - Psychiatric Psychiatric: A&O x's 3, appropriate affect, intact judgment & insight Results - Laboratory Findings CBC and BMP: 06/28/21 08:09 06/28/21 08:09 PT/INR, D-dimer PT 44.9 sec (9.0-12.0) H 06/28/21 13:00 INR 4.7 (<1.2) H 06/28/21 13:00 D-Dimer <0.17 mg/L FEU (<0.60) 06/28/21 08:09 Abnormal lab findings: Abnormal Labs 06/28/21 06/28/21 06/28/21 08:09 08:09 08:09 WBC 14.3 H RBC 3.84 L Hgb 12.4 L Hct 37.2 L RDW 15.8 H Plt Count 134 L Neutrophils # 12.8 H Lymphocytes # 0.5 L PT 57.3 H INR 5.9 H* APTT 48.0 H Sodium 134 L BUN 24 H Glucose 101 H POC Glucose (mg/dL) Total Protein 6.2 L Urine RBC Urine WBC Urine Bacteria Urine Mucus 06/28/21 06/28/21 06/28/21 09:24 13:00 13:33 WBC RBC Hgb Hct RDW Plt Count Neutrophils # Lymphocytes # PT 44.9 H INR 4.7 H APTT Sodium BUN Glucose POC Glucose (mg/dL) 122 H Total Protein Urine RBC >182 H Urine WBC >182 H Urine Bacteria Moderate H Urine Mucus Occasional H - Diagnostic Findings Chest x-ray: report reviewed, image reviewed (Pending as noted above) Assessment and Plan Assessment: Acute on chronic hypoxic respiratory failure due to exacerbation of CHF and fluid overload, continue dialysis Supper therapeutic PT/INR, hold Coumadin Scratchy throat likely multifactorial process including oxygen trial of nystatin and Cepacol Extensive bilateral pedal edema due to multifactorial processes including fluid overload CHF right-sided elevated pressure plan is to continue gentle diuresis monitor electrolytes closely Plan: as above
[2021-06-28] MEDS: BENZOCAINE/MENTHOL LOZENG 1 EACH LOZENGE MUCOUS MEM PRN (17:02)
[2021-06-28 17:26] LABS: Glucose,Whole Blood 113 mg/dL (75-99)
[2021-06-28] MEDS: INSULIN ASPART (NovoLOG) 100 UNIT/ML VIAL SQ SCH ×2 (17:29→21:21)
[2021-06-28] MEDS: NYSTATIN 100,000 UNIT/ML SUSP 500,000 UNIT/5 ML CUP PO SCH ×2 (17:44→21:34)
[2021-06-28 20:53] LABS: Glucose,Whole Blood 208 mg/dL (75-99)
[2021-06-28] MEDS: amLODIPine 5 MG TAB PO SCH (21:20)
[2021-06-28] MEDS: ATORVASTATIN 80 MG TAB PO SCH (21:21)
[2021-06-28] MEDS: METOPROLOL TARTRATE 25 MG TAB PO SCH (21:21)
[2021-06-28] MEDS: ASCORBIC ACID 500 MG TAB PO SCH (21:21)
[2021-06-29] MEDS: methylPREDNISolone SOD SUCCI 125 MG/2 ML VIAL IV SCH ×2 (00:40→05:37)
[2021-06-29 07:08] LABS: Glucose,Whole Blood 157 mg/dL (75-99)
[2021-06-29] MEDS ORDERED: ALPRAZolam 0.25 MG TAB PO PRN (07:44)
[2021-06-29] MEDS ORDERED: PNEUMONIA PROTOCOL UTILIZED 1 EACH MISC PO PRN (07:47)
[2021-06-29] MEDS: INSULIN ASPART (NovoLOG) 100 UNIT/ML VIAL SQ SCH ×4 (07:51→20:51)
[2021-06-29] MEDS ORDERED: predniSONE 10 MG TAB PO SCH (09:00)
[2021-06-29] MEDS ORDERED: cefTRIAXone IN SWFI 1,000 MG/10 ML SYRINGE IVP SCH (09:00)
[2021-06-29] MEDS ORDERED: AMIODARONE 200 MG TAB PO SCH (09:00)
[2021-06-29] MEDS: IPRATROPIUM-ALBUTEROL 3 ML NEB INHALATION SCH ×4 (09:03→19:54)
[2021-06-29 09:13] LABS: Basophils # (A) 0.01 X 10*3/uL (0.00-0.10); Basophils % (A) 0.1 %; Eosinophils # (A) 0 X 10*3/uL (0.04-0.35); Eosinophils % (A) 0 %; HCT 40.3 % (39.6-50.0); HGB 12.8 g/dL (13.0-17.0); Lymphocytes # (A) 0.16 X 10*3/uL (0.90-5.00); Lymphocytes % (A) 1.7 %; MCH 30.5 pg (27.0-32.0); MCHC 31.8 g/dL (32.0-37.0); Monocytes # (A) 0.12 X 10*3/uL (0.20-1.00); Monocytes % (A) 1.3 %; Neutrophils # (A) 9.04 X 10*3/uL (1.80-7.70); Neutrophils % (A) 96.3 %; Platelet Count 149 X 10*3/uL (140-440); RDW 13.9 % (11.5-14.5); WBC 9.39 X 10*3/uL (4.50-10.00)
[2021-06-29] MEDS: ASCORBIC ACID 500 MG TAB PO SCH ×2 (09:21→20:42)
[2021-06-29] MEDS: amLODIPine 5 MG TAB PO SCH ×2 (09:21→20:41)
[2021-06-29] MEDS: METOPROLOL TARTRATE 25 MG TAB PO SCH ×2 (09:21→20:42)
[2021-06-29] MEDS: CHOLECALCIFEROL 25 MCG (1000 IU) TABLET PO SCH (09:21)
[2021-06-29] MEDS: NYSTATIN 100,000 UNIT/ML SUSP 500,000 UNIT/5 ML CUP PO SCH ×4 (09:22→20:42)
[2021-06-29] MEDS: BENZOCAINE/MENTHOL LOZENG 1 EACH LOZENGE MUCOUS MEM PRN ×2 (09:50→15:46)
[2021-06-29] MEDS: FUROSEMIDE 40 MG TAB PO SCH (09:50)
[2021-06-29] MEDS: PIPERACILLIN-TAZOBACTAM 3.375 GM in SODIUM CHLORIDE 0.9% 100 ML IVPB SCH ×2 (09:51→15:40)
[2021-06-29 09:59] LABS: INR 1.26 (0.90-1.11); Prothrombin Time 13.5 sec (9.9-11.9)
--- NOTE | 2021-06-29 11:07 | P.CRDCN ---
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 He follows in the office with Dr. Prasad. We have been asked to see in consultation for heart failure. He presented to the hospital with symptoms of shortness of breath. He states he woke up Monday evening feeling short of breath. He attempted a breathing treatment and went back to sleep. He was able to sleep for a few hours but woke up again around 3 AM with ongoing shortness of breath. His chest pain also is exacerbated by any exertion or activity. He denies chest pain, dizziness or palpitations. On arrival to the emergency department he was found to have a supratherapeutic INR of 5.9 and was unfortunately given vitamin K. This morning's INR is 1.2. Of note, as stated the patient does have a mechanical aortic valve. According to the patient he noticed lower extremity edema. On arrival to the emergency department he was given Lasix 40 mg IV once. He has no further lower extremity edema. He underwent a ROBBY 05/14/2021 revealing preserved LV systolic function with normal ejection fraction, normally functioning prosthetic mechanical aortic valve with moderate to severe MR, moderate to severe TR and severe MAC. DIAGNOSTICS EKG reveals underlying atrial tachycardia with ventricular pacing. Telemetry tracings indicate ventricular paced rhythm with underlying atrial tachycardia. Chest xray interstitial edema with underlying COPD. Laboratory reviewed, WBC 9 down from 14 on admission, hemoglobin 12.8, platelets 149, d-dimer less than 0.17, INR today 1.2, sodium 134, potassium 4.2, NT proBNP 2400 and troponin negative 1. Current cardiac medications include amiodarone 200 mg daily, atorvastatin 80 mg daily, Lopressor 25 mg twice a day, amlodipine 5 mg twice a day and warfarin. REVIEW OF SYSTEMS At the time of my exam: CONSTITUTIONAL: Denies fever or chills. CARDIOVASCULAR: Complains of shortness of breath. Denies chest pain, orthopnea, PND or palpitations. RESPIRATORY: Denies cough. GASTROINTESTINAL: Denies abdominal pain, diarrhea, constipation, nausea or vomiting. MUSCULOSKELETAL: Denies myalgias. NEUROLOGIC: Denies numbness, tingling, headache or weakness. ENDOCRINE: Denies fatigue, weight change, polydipsia or polyurina. GENITOURINARY: Denies burning, hematuria or urgency with micturation. HEMATOLOGIC: Denies history of anemia or bleeding. PHYSICAL EXAMINATION Blood pressure 147/67 heart rate 68 afebrile and maintaining oxygen saturation on nasal cannula. CONSTITUTIONAL: No apparent distress. HEENT: Head is normocephalic. Pupils are equal, round. Sclerae anicteric. Mucous membranes of the mouth are moist. No JVD. No carotid bruit. CHEST EXAMINATION: Clear to auscultation bilaterally. Diminished bases. No wheezes or rhonchi. No chest wall tenderness is noted on palpation or with deep breathing. HEART EXAMINATION: Irregular rate and rhythm. S1, S2 heard. Mechanical click appreciated, systolic ejection murmur noted, no gallops or rub. ABDOMEN: Soft, nontender. EXTREMITIES: 2+ peripheral pulses, no lower extremity edema and no calf tenderness. NEUROLOGIC EXAMINATION: Patient is awake, alert and oriented x3. ASSESSMENT Acute on chronic diastolic heart failure Pneumonia Leukocytosis Valvular heart disease status post mechanical aortic valve replacement Supratherapeutic INR Hypertension Dyslipidemia Paroxysmal atrial fibrillation Atrial tachycardia Permanent pacemaker implantation PLAN Clinically his symptoms have improved. He had 2.5 liters of urine output after lasix administration. He has been transitioned back to PO and that is reasonable. Unfortunately, he was given vitamin K in a patient with a mechanical aortic valve with a stable hemoglobin and no active bleeding. Target INR 2.5-3.5. Discontinue amiodarone due to ongoing atrial tachycardia. He will likely require an ablation in the outpatient setting. Thank you kindly for this consultation. Nurse Practitioner note has been reviewed, I agree with a documented findings and plan of care. Patient was seen and examined. Past Medical History Past Medical History: Cancer, COPD, Hyperlipidemia, Hypertension, Osteoarthritis (OA), Pneumonia, Prostate Disorder Additional Past Medical History / Comment(s): ARRYTHYTHMIA,AORTIC VALVE REPLACEMENT,PROSTATE CANCER, History of Any Multi-Drug Resistant Organisms: None Reported Past Surgical History: Cardiac Valve Replacement, Pacemaker, Tonsillectomy Additional Past Surgical History / Comment(s): vasectomy. carotid artery. Permanent Pacemaker by Dr Clark Past Anesthesia/Blood Transfusion Reactions: No Reported Reaction Past Psychological History: Depression Smoking Status: Former smoker Past Alcohol Use History: None Reported Additional Past Alcohol Use History / Comment(s): STARTED SMOKING AT AGE 13 QUIT 1998 [id number] Past Drug Use History: None Reported - Past Family History Mother Family Medical History: Cancer Medications and Allergies Home Medications Medication Instructions Recorded Confirmed Type amLODIPine [Norvasc] 5 mg PO BID 05/14/19 06/28/21 History Ascorbic Acid [Vitamin C] 500 mg PO BID #20 tab 03/05/21 06/28/21 Rx Cholecalciferol [Vitamin D3 (25 50 mcg PO DAILY #20 tablet 03/05/21 06/28/21 Rx Mcg = 1000 Iu)] Atorvastatin [Lipitor] 80 mg PO HS #30 tab 03/20/21 06/28/21 Rx HYDROcodone/APAP 5-325MG [Cambria 1 tab PO BID PRN #10 tab 03/20/21 06/28/21 Rx 5-325] Amiodarone HCl [Pacerone] 200 mg PO DAILY 04/12/21 06/28/21 History Warfarin [Coumadin] 3 mg PO SUTUWEFRSA 04/12/21 06/28/21 History Warfarin [Coumadin] 5 mg PO MOTH 04/12/21 06/28/21 History Metoprolol Tartrate [Lopressor] 25 mg PO BID 06/11/21 06/28/21 History Ipratropium-Albuterol Nebulize 3 ml INHALATION RT-QID #4 box 06/16/21 06/28/21 Rx [Duoneb 0.5 mg-3 mg/3 ml Soln] Melatonin 6 mg PO HS PRN #30 tablet 06/16/21 06/28/21 Rx Fluticasone/Umeclidin/Vilanter 1 puff INHALATION RT-DAILY 06/28/21 06/28/21 History [Trelegy Ellipta 100-62.5-25] predniSONE See Taper PO DAILY 06/28/21 06/28/21 History Allergies Allergy/AdvReac Type Severity Reaction Status Date / Time dopamine Allergy "WAS TOLD Verified 06/28/21 08:29 NOT TO HAVE RX AGAIN,VERY ILL STATES ALMOST " methylprednisolone AdvReac Hallucinati Verified 06/28/21 15:56 [From Solu-Medrol] ons Physical Exam Vitals: Vital Signs Temp Pulse Pulse Resp BP BP Pulse Ox 06/29/21 07:00 97.6 F 64 20 147/67 96 06/29/21 02:00 97.9 F 60 16 128/72 96 06/29/21 01:41 20 06/28/21 20:00 98.2 F 49 L 20 152/70 96 06/28/21 19:55 72 06/28/21 19:41 72 06/28/21 15:00 97.6 F 66 18 145/68 97 06/28/21 12:35 97.5 F L 74 24 121/56 100 06/28/21 09:34 97.7 F 72 18 151/62 100 Intake and Output 06/28/21 06/29/21 06/29/21 22:59 06:59 14:59 Output Total 1550 100 Balance -1550 -100 Output: Urine 1550 100 Other: Voiding Method Urinal Urinal # Voids 1 3 Results 06/29/21 06:24 06/28/21 08:09 Cardiac Enzymes 06/28/21 06/28/21 Range/Units 08:09 08:09 AST 30 (17-59) U/L Troponin I 0.021 (0.000-0.034) ng/mL Coagulation 06/28/21 06/28/21 Range/Units 08:09 13:00 PT 57.3 H 44.9 H (9.0-12.0) sec APTT 48.0 H (22.0-30.0) sec CBC 06/28/21 Range/Units 08:09 WBC 14.3 H (3.8-10.6) k/uL RBC 3.84 L (4.30-5.90) m/uL Hgb 12.4 L (13.0-17.5) gm/dL Hct 37.2 L (39.0-53.0) % Plt Count 134 L (150-450) k/uL Comprehensive Metabolic Panel 06/28/21 Range/Units 08:09 Sodium 134 L (137-145) mmol/L Potassium 4.2 (3.5-5.1) mmol/L Chloride 100 (98-107) mmol/L Carbon Dioxide 29 (22-30) mmol/L BUN 24 H (9-20) mg/dL Creatinine 0.82 (0.66-1.25) mg/dL Glucose 101 H (74-99) mg/dL Calcium 8.9 (8.4-10.2) mg/dL AST 30 (17-59) U/L ALT 19 (4-49) U/L Alkaline Phosphatase 81 (38-126) U/L Total Protein 6.2 L (6.3-8.2) g/dL Albumin 3.5 (3.5-5.0) g/dL Current Medications Generic Name Dose Route Start Last Admin Trade Name Freq PRN Reason Stop Dose Admin Hydrocodone Bitart/Acetaminophen 1 each 06/28/21 11:25 Hydrocodone/Apap 5-325mg 1 Each Tab PO BID PRN Pain Albuterol/Ipratropium 3 ml 06/28/21 12:00 06/28/21 19:41 Ipratropium-Albuterol 3 Ml Neb INHALATION 3 ml RT-QID JON Administration Alprazolam 0.25 mg 06/29/21 07:44 Alprazolam 0.25 Mg Tab PO TID PRN Anxiety Amiodarone HCl 200 mg 06/29/21 09:00 Amiodarone 200 Mg Tab PO DAILY JON Amlodipine Besylate 5 mg 06/28/21 21:00 06/28/21 21:20 Amlodipine 5 Mg Tab PO 5 mg BID JON Administration Ascorbic Acid 500 mg 06/28/21 21:00 06/28/21 21:21 Ascorbic Acid 500 Mg Tab PO 500 mg BID JON Administration Atorvastatin Calcium 80 mg 06/28/21 21:00 06/28/21 21:21 Atorvastatin 80 Mg Tab PO 80 mg HS JON Administration Benzocaine/Menthol 1 each 06/28/21 16:22 06/28/21 17:02 Benzocaine/Menthol Lozeng 1 Each Lozenge MUCOUS MEM 1 each Q4HR PRN Administration Sore Throat Budesonide/Formoterol Fumarate 2 puff 06/29/21 20:00 Symbicort 80-4.5 Mcg Inhaler INHALATION RT-BID JON Cholecalciferol 50 mcg 06/29/21 09:00 Cholecalciferol 25 Mcg (1000 Iu) Tablet PO DAILY [facility] Piperacillin Sod/Tazobactam 100 mls @ 25 mls/hr 06/29/21 08:00 Sod 3.375 gm/ Sodium Chloride IVPB 07/06/21 08:01 Q8HR JON Azithromycin 500 mg/ Sodium 250 mls @ 250 mls/hr 06/30/21 09:00 Chloride IVPB 07/03/21 09:59 DAILY JON Insulin Aspart 0 unit 06/28/21 17:30 06/29/21 07:51 Insulin Aspart (Novolog) 100 Unit/Ml Vial SQ 3 unit ACHS JON Administration Protocol Melatonin 6 mg 06/28/21 11:24 Melatonin 3 Mg Tablet PO HS PRN Insomnia Methylprednisolone Sodium Succinate 60 mg 06/28/21 12:45 06/29/21 05:37 Methylprednisolone Sod Succi 125 Mg/2 Ml Vial IV 60 mg Q6HR JON Administration Metoprolol Tartrate 25 mg 06/28/21 21:00 06/28/21 21:21 Metoprolol Tartrate 25 Mg Tab PO 25 mg BID JON Administration Naloxone HCl 0.2 mg 06/28/21 11:22 Naloxone 0.4 Mg/Ml 1 Ml Vial IV Q2M PRN Opioid Reversal Nystatin 500,000 unit 06/28/21 18:00 06/28/21 21:34 Nystatin 100,000 Unit/Ml Susp 500,000 Unit/5 Ml Cup PO 500,000 unit QID JON Administration Intake and Output 06/28/21 06/29/21 06/29/21 22:59 06:59 14:59 Output Total 1550 100 Balance -1550 -100 Output: Urine 1550 100 Other: Voiding Method Urinal Urinal # Voids 1 3 06/28/21 08:09 06/28/21 08:09
[2021-06-29 11:35] LABS: African American GFR (CKD) 97.1 (60.0-200.0); Anion Gap 11.5 mmol/L (4.00-12.00); Calcium 8.9 mg/dL (8.7-10.3); Carbon Dioxide 29.5 mmol/L (21.6-31.8); Non-African American GFR(CKD) 83.8 (60.0-200.0); Potassium 4.5 mmol/L (3.5-5.5)
[2021-06-29] MEDS: ENOXAPARIN 40 MG/0.4 ML SYRINGE SQ SCH (11:55)
[2021-06-29 12:10] LABS: Glucose,Whole Blood 135 mg/dL (75-99)
[2021-06-29 12:32] LABS: Erythrocyte Sedimentation Rate 25 mm/Hr (0-20)
[2021-06-29 17:11] LABS: Glucose,Whole Blood 185 mg/dL (75-99)
--- NOTE | 2021-06-29 17:56 | P.PN ---
Subjective Progress Note Date: 06/29/21 Principal diagnosis: COPD acute exacerbation Interstitial pneumonia, possibly healthcare associated 81-year-old male with significant medical history of hypertension, dy slipidemia, recurrent pneumonias, aortic valve replacement, cardiac dysrhythmias, COPD, osteoarthritis, prostate cancer, carted artery stenosis, former nicotine dependence, mixed anxiety and depression, recurrent hematuria and dependent lower extremity edema; with several multiple comorbidities as w ell. Patient was admitted to the hospital for worsening COPD exacerbation, pneumonia possibly hospital-acquired, elevated INR, hematuria, and leukocytosis. Several consultants on board for multiple disease process and current clinical condition. 06/29/2021 Patient seen and examined at bedside. Patient resting comfortably on 2 L of oxygen. Patient denies fever, chills, shortness of breath, chest pain, palpitations, abdominal pain, nausea or vomiting at this time. Patient endorses mild to moderate exertional shortness of breath. Vital signs and diagnostic testing results reviewed. Patient had elevated INR yesterday with eri hematuria, was given vitamin K 5 mg, INR today subtherapeutic, bridging of Lovenox 40 mg for aortic valve replacement with the reinitiation of Coumadin. We'll monitor closely INR levels due to IV antibiotic therapy for possible healthcare acquired pneumonia. Patient will have mild diuresis for slight fluid volume overload. Treatment plan discussed with patient and nursing staff. Objective - Vital Signs Vital signs: Vital Signs Temp 98.1 F 06/29/21 15:00 Pulse 72 06/29/21 15:29 Resp 18 06/29/21 15:00 BP 123/56 06/29/21 15:00 Pulse Ox 99 06/29/21 15:00 Intake & Output 06/28/21 06/29/21 06/29/21 18:59 06:59 18:59 Intake Total 336 Output Total 2250 300 350 Balance -2250 -300 -14 Weight 93 kg Intake: IV 100 Piperacillin-Tazobactam 3 100 .375 gm In Sodium Chloride 0.9% 100 ml @ 25 mls/hr IVPB Q8HR JON Rx# :[id number] Oral 236 Output: Urine 2250 300 350 Other: Voiding Method Urinal Urinal Urinal # Voids 3 1 - Constitutional General appearance: Present: mild distress - EENT Eyes: Present: EOMI, PERRLA ENT: Present: hard of hearing Ears: bilateral: normal - Neck Neck: Present: normal ROM Thyroid: bilateral: normal size - Respiratory Respiratory: bilateral: diminished (Anterior and posterior lung minor) - Cardiovascular Details: A-V paced Heart rate: 74 Rhythm: regular Heart sounds: normal: S1, S2 - Peripheral edema ankle Peripheral Edema: bilateral: Trace - Peripheral pulses dorsalis pedis Peripheral Pulses: bilateral: Normal radial pulse Peripheral Pulses: bilateral: Normal - Gastrointestinal General gastrointestinal: Present: normal bowel sounds - Integumentary Integumentary: Present: decreased turgor - Neurologic Neurologic: Present: CNII-XII intact - Musculoskeletal Musculoskeletal: Present: generalized weakness - Psychiatric Psychiatric: Present: A&O x's 3, appropriate affect, intact judgment & insight - Allied health notes Allied health notes reviewed: nursing - Labs CBC & Chem 7: 06/29/21 06:24 06/29/21 06:24 Labs: Abnormal Lab Results - Last 24 Hours (Table) 06/28/21 06/29/21 06/29/21 Range/Units 20:50 06:24 06:24 RBC 4.20 L (4.40-5.60) X 10*6/uL Hgb 12.8 L (13.0-17.0) g/dL MCHC 31.8 L (32.0-37.0) g/dL Immature Gran # 0.06 H (0.00-0.04) X 10*3/uL Neutrophils # 9.04 H (1.80-7.70) X 10*3/uL Lymphocytes # 0.16 L (0.90-5.00) X 10*3/uL Monocytes # 0.12 L (0.20-1.00) X 10*3/uL Eosinophils # 0 L (0.04-0.35) X 10*3/uL ESR 25 H (0-20) mm/Hr PT (9.9-11.9) sec INR (0.90-1.11) BUN/Creatinine Ratio 25.00 H (12.00-20.00) Ratio Glucose 137 H (70-110) mg/dL POC Glucose (mg/dL) 208 H (75-99) mg/dL 06/29/21 06/29/21 06/29/21 Range/Units 06:24 07:07 12:08 RBC (4.40-5.60) X 10*6/uL Hgb (13.0-17.0) g/dL MCHC (32.0-37.0) g/dL Immature Gran # (0.00-0.04) X 10*3/uL Neutrophils # (1.80-7.70) X 10*3/uL Lymphocytes # (0.90-5.00) X 10*3/uL Monocytes # (0.20-1.00) X 10*3/uL Eosinophils # (0.04-0.35) X 10*3/uL ESR (0-20) mm/Hr PT 13.5 H (9.9-11.9) sec INR 1.26 H (0.90-1.11) BUN/Creatinine Ratio (12.00-20.00) Ratio Glucose (70-110) mg/dL POC Glucose (mg/dL) 157 H 135 H (75-99) mg/dL 06/29/21 Range/Units 17:10 RBC (4.40-5.60) X 10*6/uL Hgb (13.0-17.0) g/dL MCHC (32.0-37.0) g/dL Immature Gran # (0.00-0.04) X 10*3/uL Neutrophils # (1.80-7.70) X 10*3/uL Lymphocytes # (0.90-5.00) X 10*3/uL Monocytes # (0.20-1.00) X 10*3/uL Eosinophils # (0.04-0.35) X 10*3/uL ESR (0-20) mm/Hr PT (9.9-11.9) sec INR (0.90-1.11) BUN/Creatinine Ratio (12.00-20.00) Ratio Glucose (70-110) mg/dL POC Glucose (mg/dL) 185 H (75-99) mg/dL Microbiology - Last 24 Hours (Table) 06/28/21 11:39 Blood Culture - Preliminary Blood No Growth after 24 hours 06/28/21 11:25 Blood Culture - Preliminary Blood No Growth after 24 hours 06/28/21 09:24 Urine Culture - Preliminary Urine,Clean Catch - Imaging and Cardiology Chest x-ray: report reviewed Assessment and Plan Assessment: Acute exacerbation of COPD Possible healthcare acquired pneumonia Hematuria possibly related to elevated INR Leukocytosis Chronic anemia Hypertension Hyperlipidemia Carotid artery stenosis Degenerative joint disease History of prostate cancer History of aortic valve replacement History of cardiac arrhythmias History of tonsillectomy Anxiety and depression History of nicotine dependence Full code Plan: Acute exacerbation of COPD, continue IV corticosteroids, continue [id number] breathing treatments, encourage incentive spirometer Pneumonia possibly healthcare associated, start Zosyn 3.375 g and Zithromax 500 mg Subtherapeutic INR, Lovenox 40 mg subq, with initiation of Coumadin dosed by pharmacy; monitor INRs closely due to antibiotic therapy Mild fluid overload, gentle diuresis Continue GI and DVT/PE prophylaxis Continue home medications Continue consultation with cardiology and pulmonology for recommendations Continue medical management Further recommendations to come based on patient's clinical condition Time with Patient: Greater than 30
[2021-06-29] MEDS ORDERED: WARFARIN 5 MG TAB PO ONE (18:00)
[2021-06-29 18:29] LABS: C Reactive Protein 2.2 mg/dL (0.0-0.8)
[2021-06-29] MEDS: SYMBICORT 80-4.5 MCG INHALER INHALATION SCH (19:54)
[2021-06-29] MEDS: ATORVASTATIN 80 MG TAB PO SCH (20:42)
[2021-06-29] MEDS: methylPREDNISolone SOD SUCCI 40 MG/ML 1 ML VIAL IV SCH (20:42)
[2021-06-29 20:43] LABS: Glucose,Whole Blood 151 mg/dL (75-99)
[2021-06-30] MEDS: PIPERACILLIN-TAZOBACTAM 3.375 GM in SODIUM CHLORIDE 0.9% 100 ML IVPB SCH ×4 (00:20→23:48)
[2021-06-30 05:40] LABS: INR 1.4 (<1.2); Prothrombin Time 14.4 sec (9.0-12.0)
[2021-06-30 08:00] LABS: Glucose,Whole Blood 130 mg/dL (75-99)
--- NOTE | 2021-06-30 08:18 | P.PN ---
Subjective Progress Note Date: 06/30/21 Principal diagnosis: COPD acute exacerbation Interstitial pneumonia, possibly healthcare associated 81-year-old male with significant medical history of hypertension, dy slipidemia, recurrent pneumonias, aortic valve replacement, cardiac dysrhythmias, COPD, osteoarthritis, prostate cancer, carted artery stenosis, former nicotine dependence, mixed anxiety and depression, recurrent hematuria and dependent lower extremity edema; with several multiple comorbidities as w ell. Patient was admitted to the hospital for worsening COPD exacerbation, pneumonia possibly hospital-acquired, elevated INR, hematuria, and leukocytosis. Several consultants on board for multiple disease process and current clinical condition. 06/29/2021 Patient seen and examined at bedside. Patient resting comfortably on 2 L of oxygen. Patient denies fever, chills, shortness of breath, chest pain, palpitations, abdominal pain, nausea or vomiting at this time. Patient endorses mild to moderate exertional shortness of breath. Vital signs and diagnostic testing results reviewed. Patient had elevated INR yesterday with eri hematuria, was given vitamin K 5 mg, INR today subtherapeutic, bridging of Lovenox 40 mg for aortic valve replacement with the reinitiation of Coumadin. We'll monitor closely INR levels due to IV antibiotic therapy for possible healthcare acquired pneumonia. Patient will have mild diuresis for slight fluid volume overload. Treatment plan discussed with patient and nursing staff. 06/30/2021 Patient seen and examined at bedside. Patient resting comfortably on 2 L of oxygen with no difficulty in breathing. Patient denies fever, chills, shortness of breath at rest, chest pain, palpitations, abdominal pain, nausea or vomiting at this time. Patient continues to endorse mild to moderate exertional shortness of breath and fatigue. Vital signs and diagnostic testing results reviewed. Plan discussed with patient and nursing staff. Patient to have e valuation for possible oxygen due to severe COPD. Objective - Vital Signs Vital signs: Vital Signs Temp 97.7 F 06/30/21 02:00 Pulse 53 L 06/30/21 02:54 Resp 20 06/30/21 02:54 BP 134/64 06/30/21 02:00 Pulse Ox 98 06/30/21 02:00 Intake & Output 06/29/21 06/30/21 06/30/21 18:59 06:59 18:59 Intake Total 336 Output Total 350 100 Balance -14 -100 Intake: IV 100 Piperacillin-Tazobactam 3 100 .375 gm In Sodium Chloride 0.9% 100 ml @ 25 mls/hr IVPB Q8HR [facility] Rx# :[id number] Oral 236 Output: Urine 350 100 Other: Voiding Method Urinal Urinal # Voids 1 2 - Constitutional General appearance: Present: cooperative, no acute distress - EENT Eyes: Present: EOMI Ears: bilateral: normal - Neck Neck: Present: normal ROM Carotids: bilateral: upstroke normal Thyroid: bilateral: normal size - Respiratory Respiratory: bilateral: CTA (Anterior lung minor), diminished (Posterior lung f ields) - Cardiovascular Details: Paced rhythm Heart rate: 74 Rhythm: regular Heart sounds: normal: S1, S2 - Peripheral pulses radial pulse Peripheral Pulses: bilateral: Normal dorsalis pedis Peripheral Pulses: bilateral: Normal - Gastrointestinal General gastrointestinal: Present: normal bowel sounds - Integumentary Integumentary: Present: normal turgor - Neurologic Neurologic: Present: CNII-XII intact - Musculoskeletal Musculoskeletal: Present: strength equal bilaterally - Psychiatric Psychiatric: Present: A&O x's 3, appropriate affect, intact judgment & insight - Allied health notes Allied health notes reviewed: nursing - Labs CBC & Chem 7: 06/29/21 06:24 06/29/21 06:24 Labs: Abnormal Lab Results - Last 24 Hours (Table) 06/29/21 06/29/21 06/29/21 Range/Units 06:24 06:24 06:24 RBC 4.20 L (4.40-5.60) X 10*6/uL Hgb 12.8 L (13.0-17.0) g/dL MCHC 31.8 L (32.0-37.0) g/dL Immature Gran # 0.06 H (0.00-0.04) X 10*3/uL Neutrophils # 9.04 H (1.80-7.70) X 10*3/uL Lymphocytes # 0.16 L (0.90-5.00) X 10*3/uL Monocytes # 0.12 L (0.20-1.00) X 10*3/uL Eosinophils # 0 L (0.04-0.35) X 10*3/uL ESR 25 H (0-20) mm/Hr PT 13.5 H (9.9-11.9) sec INR 1.26 H (0.90-1.11) BUN/Creatinine Ratio 25.00 H (12.00-20.00) Ratio Glucose 137 H (70-110) mg/dL POC Glucose (mg/dL) (75-99) mg/dL C-Reactive Protein 2.2 H (0.0-0.8) mg/dL 06/29/21 06/29/21 06/29/21 Range/Units 12:08 17:10 20:42 RBC (4.40-5.60) X 10*6/uL Hgb (13.0-17.0) g/dL MCHC (32.0-37.0) g/dL Immature Gran # (0.00-0.04) X 10*3/uL Neutrophils # (1.80-7.70) X 10*3/uL Lymphocytes # (0.90-5.00) X 10*3/uL Monocytes # (0.20-1.00) X 10*3/uL Eosinophils # (0.04-0.35) X 10*3/uL ESR (0-20) mm/Hr PT (9.9-11.9) sec INR (0.90-1.11) BUN/Creatinine Ratio (12.00-20.00) Ratio Glucose (70-110) mg/dL POC Glucose (mg/dL) 135 H 185 H 151 H (75-99) mg/dL C-Reactive Protein (0.0-0.8) mg/dL 06/30/21 06/30/21 Range/Units 04:42 07:59 RBC (4.40-5.60) X 10*6/uL Hgb (13.0-17.0) g/dL MCHC (32.0-37.0) g/dL Immature Gran # (0.00-0.04) X 10*3/uL Neutrophils # (1.80-7.70) X 10*3/uL Lymphocytes # (0.90-5.00) X 10*3/uL Monocytes # (0.20-1.00) X 10*3/uL Eosinophils # (0.04-0.35) X 10*3/uL ESR (0-20) mm/Hr PT 14.4 H (9.9-11.9) sec INR 1.4 H (0.90-1.11) BUN/Creatinine Ratio (12.00-20.00) Ratio Glucose (70-110) mg/dL POC Glucose (mg/dL) 130 H (75-99) mg/dL C-Reactive Protein (0.0-0.8) mg/dL Microbiology - Last 24 Hours (Table) 06/28/21 09:24 Urine Culture - Final Urine,Clean Catch 06/28/21 11:39 Blood Culture - Preliminary Blood No Growth after 24 hours 06/28/21 11:25 Blood Culture - Preliminary Blood No Growth after 24 hours - Imaging and Cardiology Chest x-ray: image reviewed Assessment and Plan Assessment: Acute exacerbation of COPD Possible healthcare acquired pneumonia Hematuria possibly related to elevated INR Leukocytosis Chronic anemia Hypertension Hyperlipidemia Carotid artery stenosis Degenerative joint disease History of prostate cancer History of aortic valve replacement History of cardiac arrhythmias History of tonsillectomy Anxiety and depression History of nicotine dependence Full code Plan: Acute exacerbation of COPD, continue IV corticosteroids, continue [id number] breathing treatments, encourage incentive spirometer Pneumonia possibly healthcare associated, start Zosyn 3.375 g and Zithromax 500 mg Subtherapeutic INR, Lovenox 40 mg subq, with initiation of Coumadin dosed by pharmacy; monitor INRs closely due to antibiotic therapy Mild fluid overload, gentle diuresis Continue GI and DVT/PE prophylaxis Continue home medications Continue consultation with cardiology and pulmonology for recommendations Continue medical management Awaiting recommendations from cardiology for possible loop diuretics upon discharge Awaiting amateur pulse ox for possible requirements of supplemental oxygen of 2 L due to severe COPD Further recommendations to come based on patient's clinical condition Time with Patient: Greater than 30
[2021-06-30] MEDS: INSULIN ASPART (NovoLOG) 100 UNIT/ML VIAL SQ SCH ×4 (08:27→21:01)
[2021-06-30] MEDS: NYSTATIN 100,000 UNIT/ML SUSP 500,000 UNIT/5 ML CUP PO SCH ×4 (08:33→20:54)
[2021-06-30] MEDS: FUROSEMIDE 40 MG TAB PO SCH (08:33)
[2021-06-30] MEDS: amLODIPine 5 MG TAB PO SCH ×2 (08:33→20:51)
[2021-06-30] MEDS: methylPREDNISolone SOD SUCCI 40 MG/ML 1 ML VIAL IV SCH ×2 (08:33→20:51)
[2021-06-30] MEDS: ASCORBIC ACID 500 MG TAB PO SCH ×2 (08:33→20:50)
[2021-06-30] MEDS: ENOXAPARIN 40 MG/0.4 ML SYRINGE SQ SCH (08:33)
[2021-06-30] MEDS: METOPROLOL TARTRATE 25 MG TAB PO SCH ×2 (08:33→20:51)
[2021-06-30] MEDS: CHOLECALCIFEROL 25 MCG (1000 IU) TABLET PO SCH (08:33)
[2021-06-30] MEDS ORDERED: HEPARIN SODIUM 1,000 UN/ML (10ML VL) IV ONE (08:45)
[2021-06-30] MEDS ORDERED: HEPARIN SODIUM 1,000 UN/ML (10ML VL) IV PRN (08:45)
[2021-06-30] MEDS ORDERED: AZITHROMYCIN 500 MG in SODIUM CHLORIDE 0.9% 250 ML IVPB SCH (09:00)
[2021-06-30] MEDS ORDERED: HEPARIN SOD,PORK IN 0.45% NACL 25,000 UNIT in 0.45% NACL 1 250ML.BAG IV SCH (09:00)
[2021-06-30 09:08] LABS: Basophils # (A) 0.01 X 10*3/uL (0.00-0.10); Basophils % (A) 0.1 %; Eosinophils # (A) 0 X 10*3/uL (0.04-0.35); Eosinophils % (A) 0 %; HCT 39.6 % (39.6-50.0); HGB 12.4 g/dL (13.0-17.0); Lymphocytes # (A) 0.18 X 10*3/uL (0.90-5.00); Lymphocytes % (A) 1.2 %; MCHC 31.3 g/dL (32.0-37.0); MCV 95.7 fL (80.0-97.0); Mean Platelet Volume 11.3 fL (9.5-12.2); Monocytes # (A) 0.44 X 10*3/uL (0.20-1.00); Neutrophils # (A) 14.08 X 10*3/uL (1.80-7.70); Platelet Count 145 X 10*3/uL (140-440); RBC 4.14 X 10*6/uL (4.40-5.60); RDW 14.2 % (11.5-14.5); WBC 14.82 X 10*3/uL (4.50-10.00)
[2021-06-30 09:11] LABS: Basophils % (A) 0 %; Eosinophils # (A) 0.1 k/uL (0-0.7); Eosinophils % (A) 0 %; HCT 41.7 % (39.0-53.0); HGB 13.7 gm/dL (13.0-17.5); Lymphocytes # (A) 0.3 k/uL (1.0-4.8); Lymphocytes % (A) 2 %; MCH 31.3 pg (25.0-35.0); MCHC 32.8 g/dL (31.0-37.0); MCV 95.3 fL (80.0-100.0); Mean Platelet Volume 7.9; Monocytes # (A) 0.5 k/uL (0-1.0); Monocytes % (A) 3 %; Neutrophils # (A) 15.4 k/uL (1.3-7.7); Neutrophils % (A) 95 %; Platelet Count 166 k/uL (150-450); RBC 4.38 m/uL (4.30-5.90); RDW 14.6 % (11.5-15.5); WBC 16.3 k/uL (3.8-10.6)
[2021-06-30 09:22] LABS: INR 1.5 (<1.2); Partial Thromboplastin Time 25.2 sec (22.0-30.0)
[2021-06-30] MEDS: IPRATROPIUM-ALBUTEROL 3 ML NEB INHALATION SCH ×4 (09:27→20:21)
[2021-06-30] MEDS: SYMBICORT 80-4.5 MCG INHALER INHALATION SCH ×2 (09:27→20:21)
--- NOTE | 2021-06-30 09:36 | XR ---
EXAMINATION TYPE: XR chest 2V DATE OF EXAM: 06/30/2021 COMPARISON: Chest x-ray 06/28/2021 HISTORY: Pneumonia TECHNIQUE: Frontal and lateral views of the chest are obtained. FINDINGS: Heart size is enlarged as on prior, patient is post median sternotomy. Generators present in left pectoral region, leads in the right atrium and ventricle. Interstitium is increased. No evide nt pneumothorax or pleural effusion. Prominent lung volumes suggest underlying COPD. Aortic aneurysm noted. Central vascularity mildly improved. IMPRESSION: Cardiomegaly with interstitial lung disease. Suspect some improvement in volume status.
[2021-06-30] MEDS: SPIRONOLACTONE 25 MG TAB PO SCH (10:14)
[2021-06-30 10:20] LABS: African American GFR (CKD) 65.3 (60.0-200.0); Anion Gap 8.2 mmol/L (4.00-12.00); BUN/Creat Ratio 29.17 Ratio (12.00-20.00); Calcium 9.3 mg/dL (8.7-10.3); Carbon Dioxide 28.8 mmol/L (21.6-31.8); Non-African American GFR(CKD) 56.4 (60.0-200.0); Potassium 4.4 mmol/L (3.5-5.5)
--- NOTE | 2021-06-30 10:29 | P.PN ---
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 He follows in the office with Dr. Prasad. We have been asked to see in consultation for heart failure. He presented to the hospital with symptoms of shortness of breath. He states he woke up Monday evening feeling short of breath. He attempted a breathing treatment and went back to sleep. He was able to sleep for a few hours but woke up again around 3 AM with ongoing shortness of breath. His chest pain also is exacerbated by any exertion or activity. He denies chest pain, dizziness or palpitations. On arrival to the emergency department he was found to have a supratherapeutic INR of 5.9 and was unfortunately given vitamin K. This morning's INR is 1.2. Of note, as stated the patient does have a mechanical aortic valve. According to the patient he noticed lower extremity edema. On arrival to the emergency department he was given Lasix 40 mg IV once. He has no further lower extremity edema. He underwent a ROBBY 05/14/2021 revealing preserved LV systolic function with normal ejection fraction, normally functioning prosthetic mechanical aortic valve with moderate to severe MR, moderate to severe TR and severe MAC. 06/30/2021 Pt seen and examined sitting up in recliner eating breakfast. He states his breathing has improved. He has no chest pain, dizziness or palpitations. Blood pressure 127/66 heart rate 67 afebrile and maintaining oxygen saturation on nasa l cannula. Laboratory data reviewed, WBC 16.3, hemoglobin 13.7, platelets 166 and INR 1.5. PHYSICAL EXAMINATION CONSTITUTIONAL: No apparent distress. HEENT: Head is normocephalic. Pupils are equal, round. Sclerae anicteric. Mucous membranes of the mouth are moist. No JVD. No carotid bruit. CHEST EXAMINATION: Clear to auscultation bilaterally. Diminished bases. No wheezes or rhonchi. No chest wall tenderness is noted on palpation or with deep breathing. HEART EXAMINATION: Irregular rate and rhythm. S1, S2 heard. Mechanical click appreciated, systolic ejection murmur noted, no gallops or rub. EXTREMITIES: 2+ peripheral pulses, no lower extremity edema and no calf tenderness. ASSESSMENT Acute on chronic diastolic heart failure Pneumonia Leukocytosis Valvular heart disease status post mechanical aortic valve replacement Supratherapeutic INR Hypertension Dyslipidemia Paroxysmal atrial fibrillation Atrial tachycardia Permanent pacemaker implantation PLAN Initiate heparin infusion to bridge for therapeutic INR. Continue daily warfarin for therapeutic INR of 2.5-3.5. Increase daily lasix to 60 mg PO and add aldactone 25 mg daily. Continue with daily PT/INR. We will continue to follow and make recommendations accordingly. Nurse Practitioner note has been reviewed, I agree with a documented findings and plan of care. Patient was seen and examined. Objective - Vital Signs Vital signs: Vital Signs Temp 97.4 F L 06/30/21 08:31 Pulse 67 06/30/21 09:37 Resp 16 06/30/21 08:31 BP 127/66 06/30/21 08:31 Pulse Ox 98 06/30/21 09:32 Intake & Output 06/29/21 06/30/21 06/30/21 18:59 06:59 18:59 Intake Total 336 Output Total 350 100 Balance -14 -100 Intake: IV 100 Piperacillin-Tazobactam 3 100 .375 gm In Sodium Chloride 0.9% 100 ml @ 25 mls/hr IVPB Q8HR [facility] Rx# :[id number] Oral 236 Output: Urine 350 100 Other: Voiding Method Urinal Urinal # Voids 1 2 - Labs CBC & Chem 7: 06/30/21 08:51 06/30/21 04:42 Labs: Abnormal Lab Results - Last 24 Hours (Table) 06/29/21 06/29/21 06/29/21 Range/Units 06:24 06:24 12:08 WBC (4.50-10.00) X 10*3/uL RBC (4.40-5.60) X 10*6/uL Hgb (13.0-17.0) g/dL MCHC (32.0-37.0) g/dL Immature Gran # (0.00-0.04) X 10*3/uL Neutrophils # (1.80-7.70) X 10*3/uL Lymphocytes # (0.90-5.00) X 10*3/uL Eosinophils # (0.04-0.35) X 10*3/uL ESR 25 H (0-20) mm/Hr PT (9.0-12.0) sec INR (<1.2) BUN (9.0-27.0) mg/dL Est GFR (CKD-EPI)NonAf (60.0-200.0) BUN/Creatinine Ratio 25.00 H (12.00-20.00) Ratio Glucose 137 H (70-110) mg/dL POC Glucose (mg/dL) 135 H (75-99) mg/dL C-Reactive Protein 2.2 H (0.0-0.8) mg/dL 06/29/21 06/29/21 06/30/21 Range/Units 17:10 20:42 04:42 WBC 14.82 H (4.50-10.00) X 10*3/uL RBC 4.14 L (4.40-5.60) X 10*6/uL Hgb 12.4 L (13.0-17.0) g/dL MCHC 31.3 L (32.0-37.0) g/dL Immature Gran # 0.11 H (0.00-0.04) X 10*3/uL Neutrophils # 14.08 H (1.80-7.70) X 10*3/uL Lymphocytes # 0.18 L (0.90-5.00) X 10*3/uL Eosinophils # 0 L (0.04-0.35) X 10*3/uL ESR (0-20) mm/Hr PT (9.0-12.0) sec INR (<1.2) BUN (9.0-27.0) mg/dL Est GFR (CKD-EPI)NonAf (60.0-200.0) BUN/Creatinine Ratio (12.00-20.00) Ratio Glucose (70-110) mg/dL POC Glucose (mg/dL) 185 H 151 H (75-99) mg/dL C-Reactive Protein (0.0-0.8) mg/dL 06/30/21 06/30/21 06/30/21 Range/Units 04:42 04:42 07:59 WBC (4.50-10.00) X 10*3/uL RBC (4.40-5.60) X 10*6/uL Hgb (13.0-17.0) g/dL MCHC (32.0-37.0) g/dL Immature Gran # (0.00-0.04) X 10*3/uL Neutrophils # (1.80-7.70) X 10*3/uL Lymphocytes # (0.90-5.00) X 10*3/uL Eosinophils # (0.04-0.35) X 10*3/uL ESR (0-20) mm/Hr PT 14.4 H (9.0-12.0) sec INR 1.4 H (<1.2) BUN 35.0 H (9.0-27.0) mg/dL Est GFR (CKD-EPI)NonAf 56.4 L (60.0-200.0) BUN/Creatinine Ratio 29.17 H (12.00-20.00) Ratio Glucose 137 H (70-110) mg/dL POC Glucose (mg/dL) 130 H (75-99) mg/dL C-Reactive Protein (0.0-0.8) mg/dL 06/30/21 06/30/21 Range/Units 08:51 08:51 WBC 16.3 H (4.50-10.00) X 10*3/uL RBC (4.40-5.60) X 10*6/uL Hgb (13.0-17.0) g/dL MCHC (32.0-37.0) g/dL Immature Gran # (0.00-0.04) X 10*3/uL Neutrophils # 15.4 H (1.80-7.70) X 10*3/uL Lymphocytes # 0.3 L (0.90-5.00) X 10*3/uL Eosinophils # (0.04-0.35) X 10*3/uL ESR (0-20) mm/Hr PT 15.0 H (9.0-12.0) sec INR 1.5 H (<1.2) BUN (9.0-27.0) mg/dL Est GFR (CKD-EPI)NonAf (60.0-200.0) BUN/Creatinine Ratio (12.00-20.00) Ratio Glucose (70-110) mg/dL POC Glucose (mg/dL) (75-99) mg/dL C-Reactive Protein (0.0-0.8) mg/dL Microbiology - Last 24 Hours (Table) 06/28/21 09:24 Urine Culture - Final Urine,Clean Catch 06/28/21 11:39 Blood Culture - Preliminary Blood No Growth after 24 hours 06/28/21 11:25 Blood Culture - Preliminary Blood No Growth after 24 hours
[2021-06-30 12:08] LABS: Glucose,Whole Blood 252 mg/dL (75-99)
[2021-06-30] MEDS: AZITHROMYCIN 500 MG in SODIUM CHLORIDE 0.9% 250 ML IVPB SCH (13:49)
[2021-06-30 17:02] LABS: Glucose,Whole Blood 127 mg/dL (75-99)
[2021-06-30] MEDS ORDERED: WARFARIN 5 MG TAB PO ONE (18:00)
[2021-06-30] MEDS: ATORVASTATIN 80 MG TAB PO SCH (20:50)
[2021-06-30 20:57] LABS: Glucose,Whole Blood 201 mg/dL (75-99)
[2021-06-30] MEDS: INSULIN DETEMIR (LEVEMIR) 100 UNIT/ML SYR SQ SCH (21:02)
[2021-07-01 02:08] LABS: Glucose,Whole Blood 135 mg/dL (75-99)
[2021-07-01 06:41] LABS: INR 2.8 (<1.2); Partial Thromboplastin Time 80.3 sec (22.0-30.0)
[2021-07-01 07:44] LABS: Glucose,Whole Blood 142 mg/dL (75-99)
[2021-07-01] MEDS: IPRATROPIUM-ALBUTEROL 3 ML NEB INHALATION SCH ×4 (07:57→19:59)
[2021-07-01] MEDS: SYMBICORT 80-4.5 MCG INHALER INHALATION SCH ×2 (07:57→19:59)
[2021-07-01] MEDS: PIPERACILLIN-TAZOBACTAM 3.375 GM in SODIUM CHLORIDE 0.9% 100 ML IVPB SCH ×2 (08:05→16:16)
[2021-07-01] MEDS: INSULIN ASPART (NovoLOG) 100 UNIT/ML VIAL SQ SCH ×4 (08:05→21:08)
[2021-07-01] MEDS: ASCORBIC ACID 500 MG TAB PO SCH ×2 (08:06→19:27)
[2021-07-01] MEDS: amLODIPine 5 MG TAB PO SCH ×2 (08:06→19:26)
[2021-07-01] MEDS: CHOLECALCIFEROL 25 MCG (1000 IU) TABLET PO SCH (08:06)
[2021-07-01] MEDS: METOPROLOL TARTRATE 25 MG TAB PO SCH ×2 (08:06→19:26)
[2021-07-01] MEDS: SPIRONOLACTONE 25 MG TAB PO SCH (08:06)
[2021-07-01] MEDS: FUROSEMIDE 20 MG TAB PO SCH (08:06)
[2021-07-01] MEDS: INSULIN DETEMIR (LEVEMIR) 100 UNIT/ML SYR SQ SCH ×2 (08:07→21:08)
[2021-07-01] MEDS: methylPREDNISolone SOD SUCCI 40 MG/ML 1 ML VIAL IV SCH (08:07)
[2021-07-01] MEDS: NYSTATIN 100,000 UNIT/ML SUSP 500,000 UNIT/5 ML CUP PO SCH ×4 (09:01→19:27)
[2021-07-01 09:39] LABS: Basophils # (A) 0.01 X 10*3/uL (0.00-0.10); Basophils % (A) 0.1 %; Eosinophils # (A) 0 X 10*3/uL (0.04-0.35); Eosinophils % (A) 0 %; HCT 35.9 % (39.6-50.0); HGB 11.2 g/dL (13.0-17.0); Lymphocytes # (A) 0.12 X 10*3/uL (0.90-5.00); Lymphocytes % (A) 0.8 %; MCH 30.4 pg (27.0-32.0); MCHC 31.2 g/dL (32.0-37.0); MCV 97.6 fL (80.0-97.0); Mean Platelet Volume 11.5 fL (9.5-12.2); Monocytes # (A) 0.39 X 10*3/uL (0.20-1.00); Monocytes % (A) 2.7 %; Neutrophils # (A) 13.71 X 10*3/uL (1.80-7.70); Neutrophils % (A) 95.8 %; Platelet Count 132 X 10*3/uL (140-440); RBC 3.68 X 10*6/uL (4.40-5.60); RDW 14.5 % (11.5-14.5); WBC 14.31 X 10*3/uL (4.50-10.00)
[2021-07-01] MEDS: BENZOCAINE/MENTHOL LOZENG 1 EACH LOZENGE MUCOUS MEM PRN ×3 (10:49→20:26)
[2021-07-01 10:50] LABS: African American GFR (CKD) 65.3 (60.0-200.0); Albumin 3.4 g/dL (3.80-4.90); Albumin/Globulin Ratio 1.79 (1.60-3.17); BUN/Creat Ratio 38.33 Ratio (12.00-20.00); Calcium 8.5 mg/dL (8.7-10.3); Globulin 1.9 g/dL (1.6-3.3); Magnesium 1.9 mg/dL (1.5-2.4); Non-African American GFR(CKD) 56.4 (60.0-200.0); Potassium 4.5 mmol/L (3.5-5.5); Total Bilirubin 0.3 mg/dL (0.3-1.2); Total Protein 5.3 g/dL (6.2-8.2)
[2021-07-01 12:00] LABS: Glucose,Whole Blood 158 mg/dL (75-99)
[2021-07-01] MEDS: AZITHROMYCIN 500 MG in SODIUM CHLORIDE 0.9% 250 ML IVPB SCH (12:23)
--- NOTE | 2021-07-01 13:00 | P.PN ---
Subjective This is a pleasant 81-year-old male past medical history significant for paroxysmal atrial fibrillation status post ROBBY cardioversion, valvular heart disease status post mechanical aortic valve replacement in 1998, peripheral vascular disease status post right carotid endarterectomy 1998, hypertension and dyslipidemia. He follows in the office with Dr. Prasad. We have been asked to see in consultation for heart failure. He presented to the hospital with symptoms of shortness of breath. He states he woke up Monday evening feeling s hort of breath. He attempted a breathing treatment and went back to sleep. He was able to sleep for a few hours but woke up again around 3 AM with ongoing shortness of breath. His chest pain also is exacerbated by any exertion or activity. He denies chest pain, dizziness or palpitations. On arrival to the emergency department he was found to have a supratherapeutic INR of 5.9 and was unfortunately given vitamin K. This morning's INR is 1.2. Of note, as stated the patient does have a mechanical aortic valve. According to the patient he noticed lower extremity edema. On arrival to the emergency department he was given Lasix 40 mg IV once. He has no further lower extremity edema. He underwent a ROBBY 05/14/2021 revealing preserved LV systolic function with normal ejection fraction, normally functioning prosthetic mechanical aortic valve with moderate to severe MR, moderate to severe TR and severe MAC. 07/01/21: Pt seen and examined sitting up in the bedside chair, no acute distress. He states his breathing has improved. He has no chest pain, dizziness or palpitations. Blood pressure 134/69, heart rate 80, afebrile, maintaining oxygen saturations 90% on 2 L nasal cannula. Laboratory reviewed WBC 14.3, hemoglobin 11, platelets 132, sodium 138, potassium 4.5, BUN 46, serum creatinine 1.2, magnesium 1.9, INR 2.8. Patient currently limiting on amlodipine 5 mg twice a day, atorvastatin 80 mg nightly, Lasix 60 mg daily, Spironolactone 25 mg daily, patient received Coumadin 5 mg last night PHYSICAL EXAMINATION CONSTITUTIONAL: No apparent distress. HEENT: Head is normocephalic. Pupils are equal, round. Sclerae anicteric. Mucous membranes of the mouth are moist. No JVD. No carotid bruit. CHEST EXAMINATION: Clear to auscultation bilaterally. Diminished bases. No wheez es or rhonchi. No chest wall tenderness is noted on palpation or with deep breathing. HEART EXAMINATION: Irregular rate and rhythm. S1, S2 heard. Mechanical click appreciated, systolic ejection murmur noted, no gallops or rub. EXTREMITIES: 2+ peripheral pulses, no lower extremity edema and no calf tenderness. ASSESSMENT Acute on chronic diastolic heart failure Pneumonia Leukocytosis Valvular heart disease status post mechanical aortic valve replacement Supratherapeutic INR Hypertension Dyslipidemia Paroxysmal atrial fibrillation Atrial tachycardia Permanent pacemaker implantation PLAN INR is currently therapeutic Continue daily warfarin for therapeutic INR of 2.5-3.5. Continue Lasix to 60 mg PO and aldactone 25 mg daily. Continue home cardiac medications From cardiology perspective, patient is hemodynamically stable to be discharged home. Patient to follow-up in the outpatient office with Dr. Prasad Nurse Practitioner note has been reviewed, I agree with a documented findings and plan of care. Patient was seen and examined. Objective - Vital Signs Vital signs: Vital Signs Temp 97.9 F 07/01/21 08:17 Pulse 80 07/01/21 08:17 Resp 18 07/01/21 08:17 BP 134/69 07/01/21 08:17 Pulse Ox 98 07/01/21 08:17 Intake & Output 06/30/21 07/01/21 07/01/21 18:59 06:59 18:59 Intake Total 67.32 Output Total 200 450 460 Balance -132.68 -450 -460 Weight 92.8 kg 98.5 kg Intake: Intake, IV Titration 67.32 Amount Heparin Sod,Pork in 0.45% 67.32 NaCl 25,000 unit In 0.45 % NaCl 1 250ml.bag @ 10. 75 UNITS/KG/HR 9.998 mls/ hr IV .Q24H [facility] Rx#: [id number] Output: Urine 200 450 460 Other: Voiding Method Urinal Urinal Urinal # Voids 3 2 2 # Bowel Movements 1 - Labs CBC & Chem 7: 07/01/21 05:22 07/01/21 05:22 Labs: Abnormal Lab Results - Last 24 Hours (Table) 06/30/21 06/30/21 06/30/21 Range/Units 15:53 17:00 20:55 WBC (4.50-10.00) X 10*3/uL RBC (4.40-5.60) X 10*6/uL Hgb (13.0-17.0) g/dL Hct (39.6-50.0) % MCV (80.0-97.0) fL MCHC (32.0-37.0) g/dL Plt Count (140-440) X 10*3/uL Immature Gran # (0.00-0.04) X 10*3/uL Neutrophils # (1.80-7.70) X 10*3/uL Lymphocytes # (0.90-5.00) X 10*3/uL Eosinophils # (0.04-0.35) X 10*3/uL PT (9.0-12.0) sec INR (<1.2) APTT 63.1 H (22.0-30.0) sec BUN (9.0-27.0) mg/dL Est GFR (CKD-EPI)NonAf (60.0-200.0) BUN/Creatinine Ratio (12.00-20.00) Ratio Glucose (70-110) mg/dL POC Glucose (mg/dL) 127 H 201 H (75-99) mg/dL Calcium (8.7-10.3) mg/dL Total Protein (6.2-8.2) g/dL Albumin (3.80-4.90) g/dL 07/01/21 07/01/21 07/01/21 Range/Units 02:07 05:22 05:22 WBC 14.31 H (4.50-10.00) X 10*3/uL RBC 3.68 L (4.40-5.60) X 10*6/uL Hgb 11.2 L (13.0-17.0) g/dL Hct 35.9 L (39.6-50.0) % MCV 97.6 H (80.0-97.0) fL MCHC 31.2 L (32.0-37.0) g/dL Plt Count 132 L (140-440) X 10*3/uL Immature Gran # 0.08 H (0.00-0.04) X 10*3/uL Neutrophils # 13.71 H (1.80-7.70) X 10*3/uL Lymphocytes # 0.12 L (0.90-5.00) X 10*3/uL Eosinophils # 0 L (0.04-0.35) X 10*3/uL PT 27.0 H (9.0-12.0) sec INR 2.8 H (<1.2) APTT 80.3 H (22.0-30.0) sec BUN (9.0-27.0) mg/dL Est GFR (CKD-EPI)NonAf (60.0-200.0) BUN/Creatinine Ratio (12.00-20.00) Ratio Glucose (70-110) mg/dL POC Glucose (mg/dL) 135 H (75-99) mg/dL Calcium (8.7-10.3) mg/dL Total Protein (6.2-8.2) g/dL Albumin (3.80-4.90) g/dL 07/01/21 07/01/21 07/01/21 Range/Units 05:22 07:43 11:59 WBC (4.50-10.00) X 10*3/uL RBC (4.40-5.60) X 10*6/uL Hgb (13.0-17.0) g/dL Hct (39.6-50.0) % MCV (80.0-97.0) fL MCHC (32.0-37.0) g/dL Plt Count (140-440) X 10*3/uL Immature Gran # (0.00-0.04) X 10*3/uL Neutrophils # (1.80-7.70) X 10*3/uL Lymphocytes # (0.90-5.00) X 10*3/uL Eosinophils # (0.04-0.35) X 10*3/uL PT (9.0-12.0) sec INR (<1.2) APTT (22.0-30.0) sec BUN 46.0 H (9.0-27.0) mg/dL Est GFR (CKD-EPI)NonAf 56.4 L (60.0-200.0) BUN/Creatinine Ratio 38.33 H (12.00-20.00) Ratio Glucose 126 H (70-110) mg/dL POC Glucose (mg/dL) 142 H 158 H (75-99) mg/dL Calcium 8.5 L (8.7-10.3) mg/dL Total Protein 5.3 L (6.2-8.2) g/dL Albumin 3.40 L (3.80-4.90) g/dL Microbiology - Last 24 Hours (Table) 06/28/21 11:25 Blood Culture - Preliminary Blood No Growth after 48 hours 06/28/21 11:39 Blood Culture - Preliminary Blood No Growth after 48 hours
--- NOTE | 2021-07-01 17:13 | P.PN ---
Subjective Progress Note Date: 07/01/21 Principal diagnosis: COPD acute exacerbation Interstitial pneumonia, possibly healthcare associated Acute on chronic diastolic heart failure 81-year-old male with significant medical history of hypertension, dyslipidemia, recurrent pneumonias, aortic valve replacement, cardiac dysrhythmias, COPD, osteoarthritis, prostate cancer, carted artery stenosis, former nicotine dependence, mixed anxiety and depression, recurrent hematuria and dependent lower extremity edema; with several multiple comorbidities as well. Patient was admitted to the hospital for worsening COPD exacerbation, pneumonia possibly hospital-acquired, elevated INR, hematuria, and leukocytosis. Several consultants on board for multiple disease process and current clinical condition. 06/29/2021 Patient seen and examined at bedside. Patient resting comfortably on 2 L of oxygen. Patient denies fever, chills, shortness of breath, chest pain, palpitations, abdominal pain, nausea or vomiting at this time. Patient endorses mild to moderate exertional shortness of breath. Vital signs and diagnostic testing results reviewed. Patient had elevated INR yesterday with eri hematuria, was given vitamin K 5 mg, INR today subtherapeutic, bridging of Lovenox 40 mg for aortic valve replacement with the reinitiation of Coumadin. We'll monitor closely INR levels due to IV antibiotic therapy for possible healthcare acquired pneumonia. Patient will have mild diuresis for slight fluid volume overload. Treatment plan discussed with patient and nursing staff. 06/30/2021 Patient seen and examined at bedside. Patient resting comfortably on 2 L of oxygen with no difficulty in breathing. Patient denies fever, chills, shortness of breath at rest, chest pain, palpitations, abdominal pain, nausea or vomiting at this time. Patient continues to endorse mild to moderate exertional shortness of breath and fatigue. Vital signs and diagnostic testing results reviewed. Plan discussed with patient and nursing staff. Patient to have evaluation for possible oxygen due to severe COPD. 07/01/2021 She is seen and examined at bedside. Patient is resting comfortably on 2 L of oxygen with no difficulty in breathing. Patient states breathing has improved decrease in shortness of breath with exertion. Patient denies fever, chills chest pain, palpitations, abdominal pain nausea or vomiting. Vital signs and diagnostic testing reviewed. Patient's INR therapeutic for mechanical heart valve placement. Discontinue heparin infusion; continue Coumadin pharmacy to dose Coumadin therapy. Consultation with infectious disease for antibiotic therapy for pneumonia possibly hospital-acquired. Awaiting on cardiology recommendations for cardiac medications. Patient no acute signs of distress. Objective - Vital Signs Vital signs: Vital Signs Temp 97.6 F 07/01/21 15:12 Pulse 76 07/01/21 16:20 Resp 16 07/01/21 15:12 BP 114/69 07/01/21 15:12 Pulse Ox 98 07/01/21 15:12 Intake & Output 06/30/21 07/01/21 07/01/21 18:59 06:59 18:59 Intake Total 67.32 Output Total 200 450 570 Balance -132.68 -450 -570 Weight 92.8 kg 98.5 kg Intake: Intake, IV Titration 67.32 Amount Heparin Sod,Pork in 0.45% 67.32 NaCl 25,000 unit In 0.45 % NaCl 1 250ml.bag @ 10. 75 UNITS/KG/HR 9.998 mls/ hr IV .Q24H [facility] [place] Rx#: [id number] Output: Urine 200 450 570 Other: Voiding Method Urinal Urinal Urinal # Voids 3 2 1 # Bowel Movements 1 - Constitutional General appearance: Present: cooperative, mild distress, obese - EENT Eyes: Present: EOMI, PERRLA, normal appearance ENT: Present: hard of hearing, normal oropharynx Ears: bilateral: normal - Neck Neck: Present: normal ROM Thyroid: bilateral: normal size - Respiratory Respiratory: bilateral: CTA (Anterior lung minor), diminished (Posterior lung minor) - Cardiovascular Heart rate: 84 Rhythm: regular Heart sounds: normal: S1, S2 - Peripheral pulses radial pulse Peripheral Pulses: bilateral: Normal - Gastrointestinal General gastrointestinal: Present: normal bowel sounds - Integumentary Integumentary: Present: normal turgor - Neurologic Neurologic: Present: CNII-XII intact - Musculoskeletal Musculoskeletal: Present: generalized weakness - Psychiatric Psychiatric: Present: A&O x's 3, appropriate affect, intact judgment & insight - Allied health notes Allied health notes reviewed: nursing - Labs CBC & Chem 7: 07/01/21 05:22 07/01/21 05:22 Labs: Abnormal Lab Results - Last 24 Hours (Table) 06/30/21 07/01/21 07/01/21 Range/Units 20:55 02:07 05:22 WBC (4.50-10.00) X 10*3/uL RBC (4.40-5.60) X 10*6/uL Hgb (13.0-17.0) g/dL Hct (39.6-50.0) % MCV (80.0-97.0) fL MCHC (32.0-37.0) g/dL Plt Count (140-440) X 10*3/uL Immature Gran # (0.00-0.04) X 10*3/uL Neutrophils # (1.80-7.70) X 10*3/uL Lymphocytes # (0.90-5.00) X 10*3/uL Eosinophils # (0.04-0.35) X 10*3/uL PT 27.0 H (9.0-12.0) sec INR 2.8 H (<1.2) APTT 80.3 H (22.0-30.0) sec BUN (9.0-27.0) mg/dL Est GFR (CKD-EPI)NonAf (60.0-200.0) BUN/Creatinine Ratio (12.00-20.00) Ratio Glucose (70-110) mg/dL POC Glucose (mg/dL) 201 H 135 H (75-99) mg/dL Calcium (8.7-10.3) mg/dL Total Protein (6.2-8.2) g/dL Albumin (3.80-4.90) g/dL 07/01/21 07/01/21 07/01/21 Range/Units 05:22 05:22 07:43 WBC 14.31 H (4.50-10.00) X 10*3/uL RBC 3.68 L (4.40-5.60) X 10*6/uL Hgb 11.2 L (13.0-17.0) g/dL Hct 35.9 L (39.6-50.0) % MCV 97.6 H (80.0-97.0) fL MCHC 31.2 L (32.0-37.0) g/dL Plt Count 132 L (140-440) X 10*3/uL Immature Gran # 0.08 H (0.00-0.04) X 10*3/uL Neutrophils # 13.71 H (1.80-7.70) X 10*3/uL Lymphocytes # 0.12 L (0.90-5.00) X 10*3/uL Eosinophils # 0 L (0.04-0.35) X 10*3/uL PT (9.0-12.0) sec INR (<1.2) APTT (22.0-30.0) sec BUN 46.0 H (9.0-27.0) mg/dL Est GFR (CKD-EPI)NonAf 56.4 L (60.0-200.0) BUN/Creatinine Ratio 38.33 H (12.00-20.00) Ratio Glucose 126 H (70-110) mg/dL POC Glucose (mg/dL) 142 H (75-99) mg/dL Calcium 8.5 L (8.7-10.3) mg/dL Total Protein 5.3 L (6.2-8.2) g/dL Albumin 3.40 L (3.80-4.90) g/dL 07/01/21 Range/Units 11:59 WBC (4.50-10.00) X 10*3/uL RBC (4.40-5.60) X 10*6/uL Hgb (13.0-17.0) g/dL Hct (39.6-50.0) % MCV (80.0-97.0) fL MCHC (32.0-37.0) g/dL Plt Count (140-440) X 10*3/uL Immature Gran # (0.00-0.04) X 10*3/uL Neutrophils # (1.80-7.70) X 10*3/uL Lymphocytes # (0.90-5.00) X 10*3/uL Eosinophils # (0.04-0.35) X 10*3/uL PT (9.0-12.0) sec INR (<1.2) APTT (22.0-30.0) sec BUN (9.0-27.0) mg/dL Est GFR (CKD-EPI)NonAf (60.0-200.0) BUN/Creatinine Ratio (12.00-20.00) Ratio Glucose (70-110) mg/dL POC Glucose (mg/dL) 158 H (75-99) mg/dL Calcium (8.7-10.3) mg/dL Total Protein (6.2-8.2) g/dL Albumin (3.80-4.90) g/dL Microbiology - Last 24 Hours (Table) 06/28/21 11:39 Blood Culture - Preliminary Blood No Growth after 72 hours 06/28/21 11:25 Blood Culture - Preliminary Blood No Growth after 72 hours Assessment and Plan Assessment: Acute exacerbation of COPD Possible healthcare acquired pneumonia Hematuria possibly related to elevated INR Leukocytosis Acute on chronic diastolic heart failure Chronic anemia Hypertension Hyperlipidemia Carotid artery stenosis Degenerative joint disease History of prostate cancer History of aortic valve replacement History of cardiac arrhythmias History of tonsillectomy Anxiety and depression History of nicotine dependence Full code Plan: Acute exacerbation of COPD, continue IV corticosteroids, continue [id number] breathing treatments, encourage incentive spirometer Pneumonia possibly healthcare associated, start Zosyn 3.375 g and Zithromax 500 mg Acute on chronic diastolic heart failure,Mild fluid overload, gentle diuresis Continue GI and DVT/PE prophylaxis Continue home medications Continue consultation with cardiology and pulmonology for recommendations Continue medical management Awaiting recommendations from cardiology for possible loop diuretics upon discharge Awaiting amateur pulse ox for possible requirements of supplemental oxygen of 2 L due to severe COPD Further recommendations to come based on patient's clinical condition Time with Patient: Greater than 30
[2021-07-01 17:34] LABS: Glucose,Whole Blood 106 mg/dL (75-99)
[2021-07-01] MEDS ORDERED: WARFARIN 3 MG TAB PO ONE (18:00)
[2021-07-01] MEDS: predniSONE 20 MG TAB PO SCH (19:27)
[2021-07-01] MEDS: ATORVASTATIN 80 MG TAB PO SCH (19:27)
[2021-07-01 21:02] LABS: Glucose,Whole Blood 169 mg/dL (75-99)
--- NOTE | 2021-07-01 22:33 | P.CONS ---
History of Present Illness - Reason for Consult Consult date: 07/01/21 antibiotic managment Requesting physician: Jean Gordon - Chief Complaint shortness of breath x days - History of Present Illness History of present illness : Patient is 81-year male with a past medical history significant for hypertension hyperlipidemia aortic valve replacement presenting to the ER 3 days ago for evaluation of increasing shortness of breath and this patient symptom has been going on for 3 days before presentation to the hospital shortness of breath was worse on walking patient denies having any chest pain did have a mild cough with occasional sputum production no hemoptysis patient also complaining of blood in his urine that started a day before presentation to the hospital redness and significant burning or urine no suprapubic or flank pain with the symptom the patient has been evaluated by the ER physician on arrival to the ER patient was afebrile and no fever has been recorded over last 3 days patient did have a elevated white cell 14.3 with a left shift which has been persistently elevated mild elevated NT proBNP did have a positive UA joshua PCR was negative patient did have a chest x-ray pulmonary was venous hypertension interstitial edema patient has been evaluated pulmonary and cardiology services has been treated with the Solu- Medrol Zosyn and Zithromax ID was consulted for further management of antibiotic therapy Review of system: CONSTITUTIONAL: Positive for weakness denies high-grade fever. EYES: No complaint. ENT: No complaint. RESPIRATORY: As per history of present illness. CARDIOVASCULAR: No complaint. GENITOURINARY: As per history of present illness. GASTROINTESTINAL: No complaint. MUSCULOSKELETAL: No complaint. INTEGUMENTARY: No complaint. PSYCHOLOGIC: No complaint. ENDOCRINE: No complaint. NEUROLOGIC: No complaint. Past medical history : Reviewed, documented below Past surgical history : Reviewed, documented below Social history: Reviewed, documented below Medications: Reviewed, as documented below GENERAL DESCRIPTION: Elderly male up in the chair, no distress. No tachypnea or accessory muscle of respiration use. HEENT: Shows Pallor , no scleral icterus. Oral mucous membrane is dry. NECK: Trachea central, no thyromegaly. LUNGS: Unlabored breathing. Decreased breath sound at the base. No wheeze or crackle. HEART: S1, S2, regular rate and rhythm. ABDOMEN: Soft, no tenderness , guarding or rigidity EXTREMITIES: No edema of feet. SKIN: No rash, no masses palpable. NEUROLOGICAL: The patient is awake, alert, oriented x3, mood and affect normal. LABS AND RADIOLOGY: Reviewed results see below Assessment : Patient presented to hospital with increasing shortness of breath on minimal exertion in this patient symptom more of a CHF rather than pneumonia as the patient did not have any fever during this admission did have elevated white count which could relate to possible UTI as the patient does give a history of some hematuria and frequency, underlying pneumonia less likely but not excluded Plan: 1-we will try to obtain a sputum for Gram stain and cultures check a CRP and procalcitonin level 2-repeat a urine culture 3-continue with Zosyn at this point discontinue Zithromax 4-repeat chest x-ray in the morning We will follow on clinical condition and cultures to further adjust medication if needed Thank you for this consultation we will follow the patient along with you Past Medical History Past Medical History: Cancer, COPD, Hyperlipidemia, Hypertension, Osteoarthritis (OA), Pneumonia, Prostate Disorder Additional Past Medical History / Comment(s): ARRYTHYTHMIA,AORTIC VALVE REPLACEMENT,PROSTATE CANCER, History of Any Multi-Drug Resistant Organisms: None Reported Past Surgical History: Cardiac Valve Replacement, Pacemaker, Tonsillectomy Additional Past Surgical History / Comment(s): vasectomy. carotid artery. Permanent Pacemaker by Dr Clark Past Anesthesia/Blood Transfusion Reactions: No Reported Reaction Past Psychological History: Depression Smoking Status: Former smoker Past Alcohol Use History: None Reported Additional Past Alcohol Use History / Comment(s): STARTED SMOKING AT AGE 13 QUIT 1998 [id number] Past Drug Use History: None Reported - Past Family History Mother Family Medical History: Cancer Medications and Allergies Home Medications Medication Instructions Recorded Confirmed Type amLODIPine [Norvasc] 5 mg PO BID 05/14/19 06/28/21 History Ascorbic Acid [Vitamin C] 500 mg PO BID #20 tab 03/05/21 06/28/21 Rx Cholecalciferol [Vitamin D3 (25 50 mcg PO DAILY #20 tablet 03/05/21 06/28/21 Rx Mcg = 1000 Iu)] Atorvastatin [Lipitor] 80 mg PO HS #30 tab 03/20/21 06/28/21 Rx HYDROcodone/APAP 5-325MG [[place] 1 tab PO BID PRN #10 tab 03/20/21 06/28/21 Rx 5-325] Warfarin [Coumadin] 3 mg PO SUTUWEFRSA 04/12/21 06/28/21 History Warfarin [Coumadin] 5 mg PO MOTH 04/12/21 06/28/21 History Metoprolol Tartrate [Lopressor] 25 mg PO BID 06/11/21 06/28/21 History Ipratropium-Albuterol Nebulize 3 ml INHALATION RT-QID #4 box 06/16/21 06/28/21 Rx [Duoneb 0.5 mg-3 mg/3 ml Soln] Melatonin 6 mg PO HS PRN #30 tablet 06/16/21 06/28/21 Rx Fluticasone/Umeclidin/Vilanter 1 puff INHALATION RT-DAILY 06/28/21 06/28/21 History [Trelegy Ellipta 100-62.5-25] predniSONE See Taper PO DAILY 06/28/21 06/28/21 History Furosemide [Lasix] 60 mg PO DAILY 30 Days #90 tab 07/01/21 Rx Spironolactone [Aldactone] 25 mg PO DAILY 30 Days #30 tab 07/01/21 Rx Allergies Allergy/AdvReac Type Severity Reaction Status Date / Time dopamine Allergy "WAS TOLD Verified 06/28/21 08:29 NOT TO HAVE RX AGAIN,VERY ILL STATES ALMOST " methylprednisolone AdvReac Hallucinati Verified 06/28/21 15:56 [facility] ons Physical Exam Vitals: Vital Signs Temp Pulse Pulse Resp BP Pulse Ox 07/01/21 20:11 68 07/01/21 20:00 70 07/01/21 16:20 76 07/01/21 16:10 78 07/01/21 15:12 97.6 F 67 16 114/69 98 07/01/21 08:17 97.9 F 80 18 134/69 98 07/01/21 08:07 66 07/01/21 07:59 68 07/01/21 07:35 65 24 07/01/21 02:03 97.6 F 65 24 116/64 Intake and Output 07/01/21 07/01/21 07/01/21 06:59 14:59 22:59 Intake Total 240 Output Total 450 460 110 Balance -450 -460 130 Intake: Oral 240 Output: Urine 450 460 110 Other: Voiding Method Urinal # Voids 2 3 1 # Bowel Movements 1 Weight 99.5 kg Results CBC & Chem 7: 07/01/21 05:22 07/01/21 05:22 Labs: Abnormal Lab Results - Last 24 Hours (Table) 07/01/21 07/01/21 07/01/21 Range/Units 02:07 05:22 05:22 WBC 14.31 H (4.50-10.00) X 10*3/uL RBC 3.68 L (4.40-5.60) X 10*6/uL Hgb 11.2 L (13.0-17.0) g/dL Hct 35.9 L (39.6-50.0) % MCV 97.6 H (80.0-97.0) fL MCHC 31.2 L (32.0-37.0) g/dL Plt Count 132 L (140-440) X 10*3/uL Immature Gran # 0.08 H (0.00-0.04) X 10*3/uL Neutrophils # 13.71 H (1.80-7.70) X 10*3/uL Lymphocytes # 0.12 L (0.90-5.00) X 10*3/uL Eosinophils # 0 L (0.04-0.35) X 10*3/uL PT 27.0 H (9.0-12.0) sec INR 2.8 H (<1.2) APTT 80.3 H (22.0-30.0) sec BUN (9.0-27.0) mg/dL Est GFR (CKD-EPI)NonAf (60.0-200.0) BUN/Creatinine Ratio (12.00-20.00) Ratio Glucose (70-110) mg/dL POC Glucose (mg/dL) 135 H (75-99) mg/dL Calcium (8.7-10.3) mg/dL Total Protein (6.2-8.2) g/dL Albumin (3.80-4.90) g/dL 07/01/21 07/01/21 07/01/21 Range/Units 05:22 07:43 11:59 WBC (4.50-10.00) X 10*3/uL RBC (4.40-5.60) X 10*6/uL Hgb (13.0-17.0) g/dL Hct (39.6-50.0) % MCV (80.0-97.0) fL MCHC (32.0-37.0) g/dL Plt Count (140-440) X 10*3/uL Immature Gran # (0.00-0.04) X 10*3/uL Neutrophils # (1.80-7.70) X 10*3/uL Lymphocytes # (0.90-5.00) X 10*3/uL Eosinophils # (0.04-0.35) X 10*3/uL PT (9.0-12.0) sec INR (<1.2) APTT (22.0-30.0) sec BUN 46.0 H (9.0-27.0) mg/dL Est GFR (CKD-EPI)NonAf 56.4 L (60.0-200.0) BUN/Creatinine Ratio 38.33 H (12.00-20.00) Ratio Glucose 126 H (70-110) mg/dL POC Glucose (mg/dL) 142 H 158 H (75-99) mg/dL Calcium 8.5 L (8.7-10.3) mg/dL Total Protein 5.3 L (6.2-8.2) g/dL Albumin 3.40 L (3.80-4.90) g/dL 07/01/21 07/01/21 Range/Units 17:33 21:00 WBC (4.50-10.00) X 10*3/uL RBC (4.40-5.60) X 10*6/uL Hgb (13.0-17.0) g/dL Hct (39.6-50.0) % MCV (80.0-97.0) fL MCHC (32.0-37.0) g/dL Plt Count (140-440) X 10*3/uL Immature Gran # (0.00-0.04) X 10*3/uL Neutrophils # (1.80-7.70) X 10*3/uL Lymphocytes # (0.90-5.00) X 10*3/uL Eosinophils # (0.04-0.35) X 10*3/uL PT (9.0-12.0) sec INR (<1.2) APTT (22.0-30.0) sec BUN (9.0-27.0) mg/dL Est GFR (CKD-EPI)NonAf (60.0-200.0) BUN/Creatinine Ratio (12.00-20.00) Ratio Glucose (70-110) mg/dL POC Glucose (mg/dL) 106 H 169 H (75-99) mg/dL Calcium (8.7-10.3) mg/dL Total Protein (6.2-8.2) g/dL Albumin (3.80-4.90) g/dL Microbiology - Last 24 Hours (Table) 06/28/21 11:39 Blood Culture - Preliminary Blood No Growth after 72 hours 06/28/21 11:25 Blood Culture - Preliminary Blood No Growth after 72 hours
[2021-07-02] MEDS: PIPERACILLIN-TAZOBACTAM 3.375 GM in SODIUM CHLORIDE 0.9% 100 ML IVPB SCH ×2 (00:56→09:31)
[2021-07-02 02:02] LABS: Glucose,Whole Blood 110 mg/dL (75-99)
[2021-07-02 05:45] VITALS: TEMP 97.7
[2021-07-02 07:16] LABS: ALT 25 U/L (4-49); AST 29 U/L (17-59); African American GFR (CKD) 78 (>60 ml/min/1.73 sqM); Albumin 3.5 g/dL (3.5-5.0); Albumin/Globulin Ratio 1.3; Alkaline Phosphatase 80 U/L (38-126); Anion Gap 7 mmol/L; Blood Urea Nitrogen 43 mg/dL (9-20); Calcium 8.9 mg/dL (8.4-10.2); Carbon Dioxide 29 mmol/L (22-30); Chloride 101 mmol/L (98-107); Globulin 2.7 g/dL; Glucose 99 mg/dL (74-99); Magnesium 2.2 mg/dL (1.6-2.3); Non-African American GFR(CKD) 67 (>60 ml/min/1.73 sqM); Potassium 4.8 mmol/L (3.5-5.1); Sodium 137 mmol/L (137-145); Total Bilirubin 0.4 mg/dL (0.2-1.3); Total Protein 6.2 g/dL (6.3-8.2)
[2021-07-02] MEDS: SYMBICORT 80-4.5 MCG INHALER INHALATION SCH (07:23)
[2021-07-02] MEDS: IPRATROPIUM-ALBUTEROL 3 ML NEB INHALATION SCH ×2 (07:23→11:12)
[2021-07-02 07:25] LABS: INR 4.1 (<1.2); Prothrombin Time 39.1 sec (9.0-12.0)
[2021-07-02 07:26] LABS: Glucose,Whole Blood 84 mg/dL (75-99)
[2021-07-02 07:44] VITALS: BP 162/72; RESP 18
--- NOTE | 2021-07-02 07:48 | P.PN ---
Subjective Progress Note Date: 07/02/21 Principal diagnosis: Acute COPD exacerbation Interstitial pneumonia, possibly healthcare associated Acute on chronic diastolic heart failure 81-year-old male with significant medical history of hypertension, dyslipidemia, recurrent pneumonias, aortic valve replacement, cardiac dysrhythmias, COPD, osteoarthritis, prostate cancer, carted artery stenosis, former nicotine dependence, mixed anxiety and depression, recurrent hematuria and dependent lower extremity edema; with several multiple comorbidities as well. Patient was admitted to the hospital for worsening COPD exacerbation, pneumonia possibly hospital-acquired, elevated INR, hematuria, and leukocytosis. Several consultants on board for multiple disease process and current clinical condition. 06/29/2021 Patient seen and examined at bedside. Patient resting comfortably on 2 L of oxygen. Patient denies fever, chills, shortness of breath, chest pain, palpitations, abdominal pain, nausea or vomiting at this time. Patient endorses mild to moderate exertional shortness of breath. Vital signs and diagnostic testing results reviewed. Patient had elevated INR yesterday with eri hematuria, was given vitamin K 5 mg, INR today subtherapeutic, bridging of Lovenox 40 mg for aortic valve replacement with the reinitiation of Coumadin. We'll monitor closely INR levels due to IV antibiotic therapy for possible healthcare acquired pneumonia. Patient will have mild diuresis for slight fluid volume overload. Treatment plan discussed with patient and nursing staff. 06/30/2021 Patient seen and examined at bedside. Patient resting comfortably on 2 L of oxygen with no difficulty in breathing. Patient denies fever, chills, shortness of breath at rest, chest pain, palpitations, abdominal pain, nausea or vomiting at this time. Patient continues to endorse mild to moderate exertional shortness of breath and fatigue. Vital signs and diagnostic testing results reviewed. Plan discussed with patient and nursing staff. Patient to have evaluation for possible oxygen due to severe COPD. 07/01/2021 he is seen and examined at bedside. Patient is resting comfortably on 2 L of oxygen with no difficulty in breathing. Patient states breathing has improved decrease in shortness of breath with exertion. Patient denies fever, chills chest pain, palpitations, abdominal pain nausea or vomiting. Vital signs and diagnostic testing reviewed. Patient's INR therapeutic for mechanical heart valve placement. Discontinue heparin infusion; continue Coumadin pharmacy to dose Coumadin therapy. Consultation with infectious disease for antibiotic therapy for pneumonia possibly hospital-acquired. Awaiting on cardiology recommendations for cardiac medications. Patient no acute signs of distress. 07/02/2021 Patient seen and examined at bedside. Assisted patient with ambulatory pulse ox, during ambulatory pulse ox patient became hypoxic, increased work of breathing, mild diaphoresis, oxygen saturations dropped to 84% on room air. Patient placed back on 2 L of oxygen via nasal cannula oxygen saturations recovered to 89% with heart rate of 92. Patient states breathing has improved throughout hospital stay. Patient denies fever, chills, chest pain, palpitations, abdominal pain, nausea or vomiting at this time. Vital signs reviewed. Awaiting on a.m. labs and chest x-ray. Patient no acute signs of distress. high Likelihood of patient discharge today Objective - Vital Signs Vital signs: Vital Signs Temp 97.7 F 07/02/21 01:57 Pulse 110 H 07/02/21 07:33 Resp 16 07/02/21 02:00 BP 128/68 07/02/21 01:57 Pulse Ox 83 L 07/02/21 07:33 Intake & Output 07/01/21 07/02/21 07/02/21 18:59 06:59 18:59 Intake Total 240 Output Total 570 200 Balance -330 -200 Weight 99.5 kg Intake: Oral 240 Output: Urine 570 200 Other: Voiding Method Urinal Urinal # Voids 1 1 # Bowel Movements 1 - Constitutional General appearance: Present: cooperative, obese - EENT Eyes: Present: EOMI, PERRLA ENT: Present: normal oropharynx Ears: bilateral: normal - Neck Neck: Present: normal ROM Thyroid: bilateral: normal size - Respiratory Respiratory: bilateral: diminished (Anterior and posterior lung minor) - Cardiovascular Heart rate: 87 Rhythm: regular Heart sounds: normal: S1, S2 - Peripheral pulses radial pulse Peripheral Pulses: bilateral: Normal - Gastrointestinal General gastrointestinal: Present: normal bowel sounds, soft - Integumentary Integumentary: Present: normal turgor - Neurologic Neurologic: Present: CNII-XII intact - Musculoskeletal Musculoskeletal: Present: generalized weakness - Psychiatric Psychiatric: Present: A&O x's 3, appropriate affect, intact judgment & insight - Allied health notes Allied health notes reviewed: nursing - Labs CBC & Chem 7: 07/01/21 05:22 07/02/21 06:01 Labs: Abnormal Lab Results - Last 24 Hours (Table) 07/01/21 07/01/21 07/01/21 Range/Units 05:22 05:22 07:43 WBC 14.31 H (4.50-10.00) X 10*3/uL RBC 3.68 L (4.40-5.60) X 10*6/uL Hgb 11.2 L (13.0-17.0) g/dL Hct 35.9 L (39.6-50.0) % MCV 97.6 H (80.0-97.0) fL MCHC 31.2 L (32.0-37.0) g/dL Plt Count 132 L (140-440) X 10*3/uL Immature Gran # 0.08 H (0.00-0.04) X 10*3/uL Neutrophils # 13.71 H (1.80-7.70) X 10*3/uL Lymphocytes # 0.12 L (0.90-5.00) X 10*3/uL Eosinophils # 0 L (0.04-0.35) X 10*3/uL PT (9.0-12.0) sec INR (<1.2) BUN 46.0 H (9.0-27.0) mg/dL Est GFR (CKD-EPI)NonAf 56.4 L (60.0-200.0) BUN/Creatinine Ratio 38.33 H (12.00-20.00) Ratio Glucose 126 H (70-110) mg/dL POC Glucose (mg/dL) 142 H (75-99) mg/dL Calcium 8.5 L (8.7-10.3) mg/dL Total Protein 5.3 L (6.2-8.2) g/dL Albumin 3.40 L (3.80-4.90) g/dL 07/01/21 07/01/21 07/01/21 Range/Units 11:59 17:33 21:00 WBC (4.50-10.00) X 10*3/uL RBC (4.40-5.60) X 10*6/uL Hgb (13.0-17.0) g/dL Hct (39.6-50.0) % MCV (80.0-97.0) fL MCHC (32.0-37.0) g/dL Plt Count (140-440) X 10*3/uL Immature Gran # (0.00-0.04) X 10*3/uL Neutrophils # (1.80-7.70) X 10*3/uL Lymphocytes # (0.90-5.00) X 10*3/uL Eosinophils # (0.04-0.35) X 10*3/uL PT (9.0-12.0) sec INR (<1.2) BUN (9.0-27.0) mg/dL Est GFR (CKD-EPI)NonAf (60.0-200.0) BUN/Creatinine Ratio (12.00-20.00) Ratio Glucose (70-110) mg/dL POC Glucose (mg/dL) 158 H 106 H 169 H (75-99) mg/dL Calcium (8.7-10.3) mg/dL Total Protein (6.2-8.2) g/dL Albumin (3.80-4.90) g/dL 07/02/21 07/02/21 07/02/21 Range/Units 02:01 06:01 06:01 WBC (4.50-10.00) X 10*3/uL RBC (4.40-5.60) X 10*6/uL Hgb (13.0-17.0) g/dL Hct (39.6-50.0) % MCV (80.0-97.0) fL MCHC (32.0-37.0) g/dL Plt Count (140-440) X 10*3/uL Immature Gran # (0.00-0.04) X 10*3/uL Neutrophils # (1.80-7.70) X 10*3/uL Lymphocytes # (0.90-5.00) X 10*3/uL Eosinophils # (0.04-0.35) X 10*3/uL PT 39.1 H (9.0-12.0) sec INR 4.1 H (<1.2) BUN 43 H (9.0-27.0) mg/dL Est GFR (CKD-EPI)NonAf (60.0-200.0) BUN/Creatinine Ratio (12.00-20.00) Ratio Glucose (70-110) mg/dL POC Glucose (mg/dL) 110 H (75-99) mg/dL Calcium (8.7-10.3) mg/dL Total Protein 6.2 L (6.2-8.2) g/dL Albumin (3.80-4.90) g/dL Microbiology - Last 24 Hours (Table) 06/28/21 11:39 Blood Culture - Preliminary Blood No Growth after 72 hours 06/28/21 11:25 Blood Culture - Preliminary Blood No Growth after 72 hours - Imaging and Cardiology Chest x-ray: pending Assessment and Plan Assessment: Acute exacerbation of COPD Possible healthcare acquired pneumonia Hematuria possibly related to elevated INR Leukocytosis Acute on chronic diastolic heart failure Chronic anemia Hypertension Hyperlipidemia Carotid artery stenosis Degenerative joint disease History of prostate cancer History of aortic valve replacement History of cardiac arrhythmias History of tonsillectomy Anxiety and depression History of nicotine dependence Full code Plan: Acute exacerbation of COPD, transitional from IV corticosteroids to by mouth corticosteroids, continue [id number] breathing treatments, encourage incentive spirometer, we'll discharge home on trelegy Pneumonia possibly healthcare associated, awaiting on chest x-ray this a.m.; possibly discharge on Augmentin 875/125 mg by mouth twice a day for 5 day duration Possible urinary tract infection, awaiting on UA Acute on chronic diastolic heart failure,Mild fluid overload, continue oral Lasix 60 mg and Aldactone 25 mg Continue GI and DVT/PE prophylaxis Continue home medications Continue medical management Patient severe COPD with ambulatory pulse ox of 84% will require home O2 oxygen of 2 L to keep oxygen saturations greater than 88% to 92% Patient hopefully discharge today Time with Patient: Greater than 30
[2021-07-02] MEDS: INSULIN ASPART (NovoLOG) 100 UNIT/ML VIAL SQ SCH ×2 (07:56→12:58)
[2021-07-02 07:59] LABS: C Reactive Protein 0.6 mg/dL (<1.0)
[2021-07-02 08:15] LABS: Appearance,Urine Clear (Clear); Bilirubin,Urine Negative (Negative); Blood,Urine Moderate (Negative); Color,Urine Light Yellow; Glucose,Urine (UA) Negative (Negative); Ketones,Urine Negative (Negative); Leukocyte Esterase,Urine Negative (Negative); Mucus,Urine Rare /hpf; Nitrite,Urine Negative (Negative); Protein,Urine Negative (Negative); RBC,Urine 36 /hpf (0-5); Specific Gravity,Urine 1.018 (1.001-1.035); Urobilinogen,Urine <2.0 mg/dL (<2.0); WBC,Urine 1 /hpf (0-5)
--- NOTE | 2021-07-02 08:57 | XR ---
EXAMINATION TYPE: XR chest 2V DATE OF EXAM: 07/02/2021 COMPARISON: Chest x-ray 06/30/2021 HISTORY: Pneumonia TECHNIQUE: Frontal and lateral views of the chest are obtained. FINDINGS: Prominence of the central vascularity and interstitium are again noted. There is no eviden t pneumothorax or pleural effusion. Cardiomediastinal silhouette is stable. Patient is post median st ernotomy, pacemaker is stable. There are overlying artifacts. Patient is rotated. IMPRESSION: Findings similar to prior exam. Cardiomegaly. There may be a component of interstitial e jodi, correlate.
[2021-07-02] MEDS: ASCORBIC ACID 500 MG TAB PO SCH (09:31)
[2021-07-02] MEDS: CHOLECALCIFEROL 25 MCG (1000 IU) TABLET PO SCH (09:32)
[2021-07-02] MEDS: NYSTATIN 100,000 UNIT/ML SUSP 500,000 UNIT/5 ML CUP PO SCH ×2 (09:33→12:58)
[2021-07-02] MEDS: predniSONE 20 MG TAB PO SCH (09:33)
[2021-07-02] MEDS: METOPROLOL TARTRATE 25 MG TAB PO SCH (09:33)
[2021-07-02] MEDS: SPIRONOLACTONE 25 MG TAB PO SCH (09:33)
[2021-07-02] MEDS: FUROSEMIDE 20 MG TAB PO SCH (09:34)
[2021-07-02] MEDS: amLODIPine 5 MG TAB PO SCH (09:34)
[2021-07-02 09:41] LABS: Basophils # (A) 0.01 X 10*3/uL (0.00-0.10); Basophils % (A) 0.1 %; Eosinophils # (A) 0 X 10*3/uL (0.04-0.35); Eosinophils % (A) 0 %; HCT 39.2 % (39.6-50.0); HGB 12.1 g/dL (13.0-17.0); Lymphocytes # (A) 0.29 X 10*3/uL (0.90-5.00); Lymphocytes % (A) 1.9 %; MCH 29.6 pg (27.0-32.0); MCHC 30.9 g/dL (32.0-37.0); MCV 95.8 fL (80.0-97.0); Mean Platelet Volume 11.8 fL (9.5-12.2); Monocytes # (A) 0.76 X 10*3/uL (0.20-1.00); Monocytes % (A) 5.1 %; Neutrophils # (A) 13.81 X 10*3/uL (1.80-7.70); Neutrophils % (A) 92.4 %; Platelet Count 160 X 10*3/uL (140-440); RBC 4.09 X 10*6/uL (4.40-5.60); RDW 14.6 % (11.5-14.5); WBC 14.94 X 10*3/uL (4.50-10.00)
[2021-07-02] MEDS: INSULIN DETEMIR (LEVEMIR) 100 UNIT/ML SYR SQ SCH (09:47)
[2021-07-02] MEDS ORDERED: AZITHROMYCIN 500 MG TAB PO SCH (12:00)
[2021-07-02 12:18] LABS: Glucose,Whole Blood 160 mg/dL (75-99)
[2021-07-02 16:42] VITALS: PULSE 65
--- NOTE | 2021-07-02 17:11 | P.DS ---
Providers Date of admission: 06/29/21 11:38 Expected date of discharge: 07/02/21 Attending physician: Coleman Nugent Consults: 06/28/21 11:23 Consult Physician Routine Consulting Provider: Arturo Walker Consult Reason/Comments: SOB, interstitial edema Do you want consulting provider notified?: Yes 06/28/21 21:37 Consult Physician Routine Consulting Provider: Marvin Hannah Consult Reason/Comments: CHF Do you want consulting provider notified?: Yes 07/01/21 07:31 Consult Physician Routine Consulting Provider: Adriana Lam Consult Reason/Comments: antibiotic therapy Do you want consulting provider notified?: Yes Primary care physician: Coleman Nugent Hospital Course: 81-year-old male with significant medical history of hypertension, dyslipidemia, recurrent pneumonias, aortic valve replacement, cardiac dysrhythmias, COPD, osteoarthritis, prostate cancer, carted artery stenosis, former nicotine dependence, mixed anxiety and depression, recurrent hematuria and dependent lower extremity edema; with several multiple comorbidities as well. Patient was admitted to the hospital for worsening COPD exacerbation, pneumonia possibly hospital-acquired, elevated INR, hematuria, and leukocytosis. Several consultants on board for multiple disease process and current clinical condition. During hospital stay patient found to have acute on chronic diastolic heart failure improved with diuresis; possible pneumonia healthcare associated improved with IV antibiotic therapy; COPD exacerbation improved with corticosteroids, [id number] breathing treatments, and oxygen therapy. Hematuria improved during hospital stay with stabilized INR for mechanical valve replacement. Patient improved during hospital stay with multiple illnesses and disease processes. Patient discharged with guarded prognosis Assessment: Acute exacerbation of COPD Possible healthcare acquired pneumonia Hematuria possibly related to elevated INR Leukocytosis Acute on chronic diastolic heart failure Chronic anemia Hypertension Hyperlipidemia Carotid artery stenosis Degenerative joint disease History of prostate cancer History of aortic valve replacement History of cardiac arrhythmias History of tonsillectomy Anxiety and depression History of nicotine dependence DO NOT RESUSCITATE Final diagnosis Acute exacerbation of COPD, improved with corticosteroids and breathing treatments, use of incentive spirometer, oxygen therapy Possible pneumonia healthcare associated, improved with antibiotic therapy, and respiratory treatments Acute on chronic diastolic heart failure, mild fluid overload, improved with diuresis Patient additional to be discharged on oral Lasix 60 mg by mouth daily, Aldactone 25 mg by mouth daily for acute on chronic diastolic heart failure Possible pneumonia healthcare associated, improved with antibiotics discharged on Augmentin 875/125 by mouth twice a day COPD exacerbation patient sent home on corticosteroids, home oxygen, and continue duo nebs as needed and maintenance inhaler Instructed to weight himself daily contact primary care for weight gain over 1 pound per day or 2-3 pounds per week Patient instructed to follow-up with primary care 1 to 2 days Patient instructed to follow-up with cardiology Patient instructed to follow-up with pulmonology for treatment of COPD Health Concerns: Multiple comorbidities Complexity of medical treatment plan Pertinent Studies: Serial chest x-rays, interstitial lung disease, mild fluid overload; improved during hospital stay Procedures: No procedures performed during hospital stay Patient Condition at Discharge: Fair Plan - Discharge Summary New Discharge Prescriptions: New Furosemide [Lasix] 60 mg PO DAILY 30 Days #90 tab Benzocaine/Menthol Lozeng [Cepacol lozenge] 1 each MUCOUS MEM Q4HR PRN #90 lozenge PRN Reason: Sore Throat Amoxicillin/Potassium Clav [Augmentin 875-125 Tablet] 1 tab PO Q12HR 5 Days #10 tab predniSONE 50 mg PO DAILY 5 Days #5 tab Spironolactone [Aldactone] 25 mg PO DAILY 30 Days #30 tab Continue amLODIPine [Norvasc] 5 mg PO BID Ascorbic Acid [Vitamin C] 500 mg PO BID #20 tab Atorvastatin [Lipitor] 80 mg PO HS #30 tab HYDROcodone/APAP 5-325MG [[place] 5-325] 1 tab PO BID PRN #10 tab PRN Reason: Pain Warfarin [Coumadin] 3 mg PO SUTUWEFRSA Warfarin [Coumadin] 5 mg PO MOTH Metoprolol Tartrate [Lopressor] 25 mg PO BID Melatonin 6 mg PO HS PRN #30 tablet PRN Reason: Insomnia Cholecalciferol [Vitamin D3 (25 Mcg = 1000 Iu)] 50 mcg PO DAILY #20 tablet Ipratropium-Albuterol Nebulize [Duoneb 0.5 mg-3 mg/3 ml Soln] 3 ml INHALATION RT-QID #4 box Changed Fluticasone/Umeclidin/Vilanter [Trelegy Ellipta 100-62.5-25] 1 puff INHALATION RT-DAILY #1 unit Discontinued predniSONE See Taper PO DAILY Amiodarone HCl [Pacerone] 200 mg PO DAILY Discharge Medication List amLODIPine [Norvasc] 5 mg PO BID 05/14/19 [History] Ascorbic Acid [Vitamin C] 500 mg PO BID #20 tab 03/05/21 [Rx] Cholecalciferol [Vitamin D3 (25 Mcg = 1000 Iu)] 50 mcg PO DAILY #20 tablet 03/05/21 [Rx] Atorvastatin [Lipitor] 80 mg PO HS #30 tab 03/20/21 [Rx] HYDROcodone/APAP 5-325MG [[place] 5-325] 1 tab PO BID PRN #10 tab 03/20/21 [Rx] Warfarin [Coumadin] 3 mg PO SUTUWEFRSA 04/12/21 [History] Warfarin [Coumadin] 5 mg PO MOTH 04/12/21 [History] Metoprolol Tartrate [Lopressor] 25 mg PO BID 06/11/21 [History] Ipratropium-Albuterol Nebulize [Duoneb 0.5 mg-3 mg/3 ml Soln] 3 ml INHALATION RT-QID #4 box 06/16/21 [Rx] Melatonin 6 mg PO HS PRN #30 tablet 06/16/21 [Rx] Furosemide [Lasix] 60 mg PO DAILY 30 Days #90 tab 07/01/21 [Rx] Spironolactone [Aldactone] 25 mg PO DAILY 30 Days #30 tab 07/01/21 [Rx] Amoxicillin/Potassium Clav [Augmentin 875-125 Tablet] 1 tab PO Q12HR 5 Days #10 tab 07/02/21 [Rx] Benzocaine/Menthol Lozeng [Cepacol lozenge] 1 each MUCOUS MEM Q4HR PRN #90 lozenge 07/02/21 [Rx] Fluticasone/Umeclidin/Vilanter [Trelegy Ellipta 100-62.5-25] 1 puff INHALATION RT-DAILY #1 unit 07/02/21 [Rx] predniSONE 50 mg PO DAILY 5 Days #5 tab 07/02/21 [Rx] Follow up Appointment(s)/Referral(s): Coleman Nugent MD [Primary Care Provider] - 07/06/21 9:20 am Clay Prasad MD [STAFF PHYSICIAN] - 07/16/21 10:00 am Arturo Walker MD [STAFF PHYSICIAN] - 07/09/21 2:00 pm Ambulatory/Diagnostic Orders: Complete Blood Count w/diff [LAB.AMB] Location: None Selected Comprehensive Metabolic Panel [LAB.AMB] Location: None Selected Magnesium [LAB.AMB] Location: None Selected Prothrombin Time INR [LAB.AMB] Location: None Selected Patient Instructions/Handouts: Heart Failure (DC), COPD (Chronic Obstructive Pulmonary Disease) (DC), Hematuria (GEN), Chronic Respiratory Failure (DC) Activity/Diet/Wound Care/Special Instructions: Low-sodium diet Cardiac healthy diet carbohydrate diet for diabetics Discharge Disposition: HOME WITH HOME HEALTH SERVICES
--- NOTE | 2021-07-02 17:59 | PN ---
PROGRESS NOTE DATE OF SERVICE: 07/02/2021. REASON FOR FOLLOWUP: Pneumonia. INTERVAL HISTORY: The patient is afebrile. The patient is feeling better. He is breathing comfortably. Denies having any chest pain. Cough has decreased in intensity. No nausea, no vomiting. No abdominal pain, no diarrhea. PHYSICAL EXAMINATION: Blood pressure is a 162/70 with a pulse of 65, temperature of 97.7 he is 100% on 2 L nasal cannula. General description is an elderly male up in the bed in no distress. Respiratory system unlabored breathing, decreased breath sounds at bases. No wheeze. Heart S1, S2. Regular rate. Abdomen soft. LABS: Hemoglobin is 12.1, hematocrit 49.4, BUN of 40, creatinine 1.04. CRP is negative. Repeat urine is relatively negative. DIAGNOSTIC IMPRESSION AND PLAN: Patient admitted to the hospital with weakness, concerning for possible UTI/pneumonia. Clinically not behaving as such in this patient who did not have any fever on admission. White count is elevated, could have been related to the steroid the patient was on. May do short course of oral Augmentin on discharge. MMODL / IJN: [id number] /
[2021-07-02] MEDS ORDERED: WARFARIN 0.5 MG TAB PO ONE (18:00)
== END 2021-07-02 15:40 | disposition home health service (06) | DRG 291 ==
LOC: EC 07:27 → 6NMEDSUR 10:48 → OBSVTOIN 06-29 11:38
PROVIDERS: ADMIT Family Medicine; ATTEND Family Medicine
DX: I11.0 Hypertensive heart disease with heart failure (principal); J18.9 Pneumonia, unspecified organism; J96.21 Acute and chronic respiratory failure with hypoxia; I47.1 Supraventricular tachycardia; J44.0 Chronic obstructive pulmonary disease with (acute) lower respiratory infection; J44.1 Chronic obstructive pulmonary disease with (acute) exacerbation; I50.33 Acute on chronic diastolic (congestive) heart failure; I48.0 Paroxysmal atrial fibrillation; I73.9 Peripheral vascular disease, unspecified; R79.1 Abnormal coagulation profile; T45.515A Adverse effect of anticoagulants, initial encounter; Z20.822 Contact with and (suspected) exposure to COVID-19; R31.0 Gross hematuria; M19.90 Unspecified osteoarthritis, unspecified site; Z66 Do not resuscitate; D64.9 Anemia, unspecified; D69.6 Thrombocytopenia, unspecified; E78.5 Hyperlipidemia, unspecified; F32.9 Major depressive disorder, single episode, unspecified; Z85.46 Personal history of malignant neoplasm of prostate; Z95.2 Presence of prosthetic heart valve; Z79.01 Long term (current) use of anticoagulants; F41.9 Anxiety disorder, unspecified; I08.1 Rheumatic disorders of both mitral and tricuspid valves; I65.29 Occlusion and stenosis of unspecified carotid artery; Y95 Nosocomial condition; Z79.899 Other long term (current) drug therapy; Z80.9 Family history of malignant neoplasm, unspecified; Z87.01 Personal history of pneumonia (recurrent); Z87.891 Personal history of nicotine dependence; Z90.89 Acquired absence of other organs; Z98.890 Other specified postprocedural states; Z95.0 Presence of cardiac pacemaker
CPT/HCPCS: 36415; 71046; 80048; 80053; 81001; 83036; 83605; 83735; 83880; 84145; 84484; 85025; 85379; 85610; 85652; 85730; 86140; 87040; 87086; 87502; 87635; 93005; 94640; 94760; 99285

== ENCOUNTER 2023-09-19 09:54 | Inpatient (IN) | payer MEDICARE ==
[2023-09-19] MEDS ORDERED: IPRATROPIUM-ALBUTEROL 3 ML NEB INHALATION STA (11:34)
--- NOTE | 2023-09-19 11:35 | ED ---
General Adult HPI - General Chief complaint: Weakness Stated complaint: weakness Time Seen by Provider: 09/19/23 10:36 Source: patient, EMS Mode of arrival: EMS Limitations: no limitations - History of Present Illness Initial comments: 83-year-old male with a past medical history significant for hypertension, hyperlipidemia, aortic valve replacement on Coumadin, CHF presenting to the ED with a chief complaint of cough. Patient states for the past 3 days has had generalized fatigue and cough productive with greenish sputum. No rhinorrhea or congestion. No headache. No chest pain or shortness of breath. No abdominal pain. No nausea vomiting diarrhea. Patient also does admit to some urinary frequency. No fever or chills. No other complaints. - Related Data Home Medications Medication Instructions Recorded Confirmed amLODIPine [Norvasc] 5 mg PO BID 05/14/19 06/28/21 Warfarin [Coumadin] 3 mg PO SUTUWEFRSA 04/12/21 06/28/21 Warfarin [Coumadin] 5 mg PO MOTH 04/12/21 06/28/21 Metoprolol Tartrate [Lopressor] 25 mg PO BID 06/11/21 06/28/21 Previous Rx's Medication Instructions Recorded Ascorbic Acid [Vitamin C] 500 mg PO BID #20 tab 03/05/21 Cholecalciferol [Vitamin D3 (25 50 mcg PO DAILY #20 tablet 03/05/21 Mcg = 1000 Iu)] Atorvastatin [Lipitor] 80 mg PO HS #30 tab 03/20/21 HYDROcodone/APAP 5-325MG [[place] 1 tab PO BID PRN #10 tab 03/20/21 5-325] Ipratropium-Albuterol Nebulize 3 ml INHALATION RT-QID #4 box 06/16/21 [Duoneb 0.5 mg-3 mg/3 ml Soln] Melatonin 6 mg PO HS PRN #30 tablet 06/16/21 Furosemide [Lasix] 60 mg PO DAILY 30 Days #90 tab 07/01/21 Spironolactone [Aldactone] 25 mg PO DAILY 30 Days #30 tab 07/01/21 Amoxicillin/Potassium Clav 1 tab PO Q12HR 5 Days #10 tab 07/02/21 [Augmentin 875-125 Tablet] Benzocaine/Menthol Lozeng [Cepacol 1 each MUCOUS MEM Q4HR PRN #90 07/02/21 lozenge] lozenge Fluticasone/Umeclidin/Vilanter 1 puff INHALATION RT-DAILY #1 unit 07/02/21 [Lee Zeng 100-62.5-25] predniSONE 50 mg PO DAILY 5 Days #5 tab 07/02/21 Allergies Allergy/AdvReac Type Severity Reaction Status Date / Time dopamine Allergy "WAS TOLD Verified 09/19/23 10:22 NOT TO HAVE RX AGAIN,VERY ILL STATES ALMOST " methylprednisolone AdvReac Hallucinati Verified 09/19/23 10:22 [From Solu-Medrol] ons Review of Systems ROS Statement: Those systems with pertinent positive or pertinent negative responses have been documented in the HPI. ROS Other: All systems not noted in ROS Statement are negative. Past Medical History Past Medical History: Cancer, COPD, Hyperlipidemia, Hypertension, Osteoarthritis (OA), Pneumonia, Prostate Disorder Additional Past Medical History / Comment(s): ARRYTHYTHMIA,AORTIC VALVE REPLACEMENT,PROSTATE CANCER, History of Any Multi-Drug Resistant Organisms: None Reported Past Surgical History: Cardiac Valve Replacement, Pacemaker, Tonsillectomy Additional Past Surgical History / Comment(s): vasectomy. carotid artery. Permanent Pacemaker by Dr Clark Past Anesthesia/Blood Transfusion Reactions: No Reported Reaction Past Psychological History: Depression Smoking Status: Former smoker Past Alcohol Use History: None Reported Past Drug Use History: None Reported - Past Family History Mother Family Medical History: Cancer General Exam Limitations: no limitations General appearance: alert, in no apparent distress Neck exam: Present: normal inspection Respiratory exam: Present: other (Course breath sounds bilaterally.) Cardiovascular Exam: Present: regular rate, normal rhythm GI/Abdominal exam: Present: soft (No tenderness. No rebound guarding or rigidity.) Neurological exam: Present: alert, oriented X3 Skin exam: Present: warm, dry Course Vital Signs 09/19/23 09/19/23 09/19/23 10:00 11:40 12:37 Temperature 96.9 F L 98.4 F Pulse Rate 60 67 77 Respiratory 18 18 20 Rate Blood Pressure 147/65 154/65 129/59 O2 Sat by Pulse 98 96 96 Oximetry 09/19/23 09/19/23 12:47 12:55 Temperature Pulse Rate 60 62 Respiratory Rate Blood Pressure O2 Sat by Pulse Oximetry Medical Decision Making - Medical Decision Making Was pt. sent in by a medical professional or institution ([facility], [employer], urgent care, hospital, or residential...) When possible be specific @ -No Did you speak to anyone other than the patient for history (EMS, parent, family, police, friend...)? What history was obtained from this source @ -No Did you review nursing and triage notes (agree or disagree)? Why? @ -I reviewed and agree with nursing and triage notes Were old charts reviewed (outside hosp., previous admission, EMS record, old EKG, old radiological studies, urgent care reports/EKG's, residential records)? Report findings @ -No old charts were reviewed Differential Diagnosis (chest pain, altered mental status, abdominal pain women, abdominal pain men, vaginal bleeding, weakness, fever, dyspnea, syncope, headache, dizziness, GI bleed, back pain, seizure, CVA, palpatations, mental health, musculoskeletal)? @ -Differential Dyspnea: Coronary syndrome, arrhythmia, tamponade, asthma, COPD, pulmonary embolism, pneumonia, pneumothorax, pulmonary effusion, anaphylaxis, diabetic ketoacidosis, flailed chest, pulmonary contusion, diaphragmatic rupture, anemia, n euromuscular, this is not meant to be an all-inclusive list. EKG interpreted by me (3pts min.). @ -As above X-rays interpreted by me (1pt min.). @ -Chest x-ray interpreted by me showing right middle lobe ammonia. CT interpreted by me (1pt min.). @ -None done U/S interpreted by me (1pt. min.). @ -None done What testing was considered but not performed or refused? (CT, X-rays, U/S, labs)? Why? @ -None What meds were considered but not given or refused? Why? @ -None Did you discuss the management of the patient with other professionals (professionals i.e. [facility]rington, [employer], lab, RT, psych nurse, social psychologist, signals officer, teacher, duty officer, pillowcase folder)? Give summary @ -Case discussed with Dr. Rodney, who accepts admission Was smoking cessation discussed for >3mins.? @ -No Was critical care preformed (if so, how long)? @ -No Were there social determinants of health that impacted care today? How? (Homelessness, low income, unemployed, alcoholism, drug addiction, transportation, low edu. Level, literacy, decrease access to med. care, snf, rehab)? @ -No Was there de-escalation of care discussed even if they declined (Discuss DNR or withdrawal of care, Hospice)? DNR status @ -No What co-morbidities impacted this encounter? (DM, HTN, Smoking, COPD, CAD, Cancer, CVA, ARF, Chemo, Hep., AIDS, mental health diagnosis, sleep apnea, morbid obesity)? @ -COPD Was patient admitted / discharged? Hospital course, mention meds given and route, prescriptions, significant lab abnormalities, going to OR and other pertinent info. @ -Admission 83-year-old male with a past medical history significant for COPD, A. fib, mechanical heart valve presenting to the ED with chief complaint of cough.Priec studies reviewed. CBC does not show a significantly elevated white blood cell count. However chemistry panel did show elevations in BUN 56 and creatinine at 1.6. Troponin elevated at 0.099. At this time, patient denies any chest pain. Additionally, patient on Coumadin. Therefore at this time heparin held. UA unremarkable for infection. Chest x-ray did show concerning developing right middle lobe pneumonia. Patient does have a prolonged QT at 505 ms. With this, difficulties in antibiotic selection with fluoroquinolones and azithromycin causing QT prolongation. Started on combination therapy with beta-lactam and doxycycline. Consult will be placed to infectious disease and cardiology. Undiagnosed new problem with uncertain prognosis? @ -No Drug Therapy requiring intensive monitoring for toxicity (Heparin, Nitro, Insulin, Cardizem)? @ -No Were any procedures done? @ -No Diagnosis/symptom? @ -Pneumonia, elevated sharp Acute, or Chronic, or Acute on Chronic? @ -Acute Uncomplicated (without systemic symptoms) or Complicated (systemic symptoms)? @ -Complicated Side effects of treatment? @ -No Exacerbation, Progression, or Severe Exacerbation? @ -No Poses a threat to life or bodily function? How? (Chest pain, [place], SC, pneumonia, PE, COPD, DKA, ARF, appy, cholecystitis, CVA, Diverticulitis, Homicidal, Suicidal, threat to staff... and all critical care pts) @ -No - Lab Data Result diagrams: 09/19/23 11:46 09/19/23 11:46 Lab Results 09/19/23 09/19/23 09/19/23 Range/Units 11:46 11:46 11:46 WBC 6.5 (3.8-10.6) k/uL RBC 4.03 L (4.30-5.90) m/uL Hgb 12.6 L (13.0-17.5) gm/dL Hct 37.8 L (39.0-53.0) % MCV 93.8 (80.0-100.0) fL MCH 31.2 (25.0-35.0) pg MCHC 33.2 (31.0-37.0) g/dL RDW 13.4 (11.5-15.5) % Plt Count 122 L (150-450) k/uL MPV 8.6 Neutrophils % 72 % Lymphocytes % 8 % Monocytes % 17 % Eosinophils % 0 % Basophils % 0 % Neutrophils # 4.7 (1.3-7.7) k/uL Lymphocytes # 0.5 L (1.0-4.8) k/uL Monocytes # 1.1 H (0-1.0) k/uL Eosinophils # 0.0 (0-0.7) k/uL Basophils # 0.0 (0-0.2) k/uL Manual Slide Review Performed RBC Morphology Normal PT 24.6 H (10.0-12.5) sec INR 2.5 H (<1.2) APTT 45.5 H (22.0-30.0) sec Sodium 137 (137-145) mmol/L Potassium 5.0 (3.5-5.1) mmol/L Chloride 105 (98-107) mmol/L Carbon Dioxide 19 L (22-30) mmol/L Anion Gap 13 mmol/L BUN 56 H (9-20) mg/dL Creatinine 1.68 H (0.66-1.25) mg/dL Est GFR (CKD-EPI)AfAm 43 (>60 ml/min/1.73 sqM) Est GFR (CKD-EPI)NonAf 37 (>60 ml/min/1.73 sqM) Glucose 72 L (74-99) mg/dL Plasma Lactic Acid Omi (0.7-2.0) mmol/L Calcium 8.7 (8.4-10.2) mg/dL Total Bilirubin 0.6 (0.2-1.3) mg/dL AST 45 (17-59) U/L ALT 19 (4-49) U/L Alkaline Phosphatase 78 (38-126) U/L Troponin I (0.000-0.034) ng/mL Total Protein 7.3 (6.3-8.2) g/dL Albumin 3.9 (3.5-5.0) g/dL Urine Color Urine Appearance (Clear) Urine pH (5.0-8.0) Ur Specific Bath (1.001-1.035) Urine Protein (Negative) Urine Glucose (UA) (Negative) Urine Ketones (Negative) Urine Blood (Negative) Urine Nitrite (Negative) Urine Bilirubin (Negative) Urine Urobilinogen (<2.0) mg/dL Ur Leukocyte Esterase (Negative) Urine RBC (0-5) /hpf Urine WBC (0-5) /hpf Hyaline Casts (0-2) /lpf Granular Casts (0) /lpf Urine Mucus (None) /hpf 09/19/23 09/19/23 09/19/23 Range/Units 11:46 11:46 11:46 WBC (3.8-10.6) k/uL RBC (4.30-5.90) m/uL Hgb (13.0-17.5) gm/dL Hct (39.0-53.0) % MCV (80.0-100.0) fL MCH (25.0-35.0) pg MCHC (31.0-37.0) g/dL RDW (11.5-15.5) % Plt Count (150-450) k/uL MPV Neutrophils % % Lymphocytes % % Monocytes % % Eosinophils % % Basophils % % Neutrophils # (1.3-7.7) k/uL Lymphocytes # (1.0-4.8) k/uL Monocytes # (0-1.0) k/uL Eosinophils # (0-0.7) k/uL Basophils # (0-0.2) k/uL Manual Slide Review RBC Morphology PT (10.0-12.5) sec INR (<1.2) APTT (22.0-30.0) sec Sodium (137-145) mmol/L Potassium (3.5-5.1) mmol/L Chloride (98-107) mmol/L Carbon Dioxide (22-30) mmol/L Anion Gap mmol/L BUN (9-20) mg/dL Creatinine (0.66-1.25) mg/dL Est GFR (CKD-EPI)AfAm (>60 ml/min/1.73 sqM) Est GFR (CKD-EPI)NonAf (>60 ml/min/1.73 sqM) Glucose (74-99) mg/dL Plasma Lactic Acid Omi 1.1 (0.7-2.0) mmol/L Calcium (8.4-10.2) mg/dL Total Bilirubin (0.2-1.3) mg/dL AST (17-59) U/L ALT (4-49) U/L Alkaline Phosphatase (38-126) U/L Troponin I 0.099 H* (0.000-0.034) ng/mL Total Protein (6.3-8.2) g/dL Albumin (3.5-5.0) g/dL Urine Color Light Yellow Urine Appearance Clear (Clear) Urine pH 5.0 (5.0-8.0) Ur Specific Bath 1.015 (1.001-1.035) Urine Protein Trace H (Negative) Urine Glucose (UA) Negative (Negative) Urine Ketones 1+ H (Negative) Urine Blood Trace H (Negative) Urine Nitrite Negative (Negative) Urine Bilirubin Negative (Negative) Urine Urobilinogen <2.0 (<2.0) mg/dL Ur Leukocyte Esterase Negative (Negative) Urine RBC 2 (0-5) /hpf Urine WBC 1 (0-5) /hpf Hyaline Casts 3 H (0-2) /lpf Granular Casts 3 (0) /lpf Urine Mucus Rare H (None) /hpf - EKG Data EKG Comments: EKG shows a paced rhythm at 60 bpm. QRS 179, QT/QTC 505/506. Appears similar to prior. Disposition Clinical Impression: Pneumonia Disposition: ADMITTED IP TO THIS HOSP Condition: Good Referrals: Coleman Nugent MD [Primary Care Provider] - 1-2 days
[2023-09-19 12:26] LABS: Basophils % (A) 0 %; Eosinophils % (A) 0 %; HCT 37.8 % (39.0-53.0); HGB 12.6 gm/dL (13.0-17.5); Lymphocytes # (A) 0.5 k/uL (1.0-4.8); Lymphocytes % (A) 8 %; MCH 31.2 pg (25.0-35.0); MCHC 33.2 g/dL (31.0-37.0); MCV 93.8 fL (80.0-100.0); Mean Platelet Volume 8.6; Monocytes # (A) 1.1 k/uL (0-1.0); Monocytes % (A) 17 %; Neutrophils # (A) 4.7 k/uL (1.3-7.7); Neutrophils % (A) 72 %; Platelet Count 122 k/uL (150-450); RBC 4.03 m/uL (4.30-5.90); RDW 13.4 % (11.5-15.5); WBC 6.5 k/uL (3.8-10.6)
[2023-09-19 12:28] LABS: ALT 19 U/L (4-49); AST 45 U/L (17-59); African American GFR (CKD) 43 (>60 ml/min/1.73 sqM); Albumin 3.9 g/dL (3.5-5.0); Alkaline Phosphatase 78 U/L (38-126); Anion Gap 13 mmol/L; Blood Urea Nitrogen 56 mg/dL (9-20); Calcium 8.7 mg/dL (8.4-10.2); Carbon Dioxide 19 mmol/L (22-30); Chloride 105 mmol/L (98-107); Glucose 72 mg/dL (74-99); Non-African American GFR(CKD) 37 (>60 ml/min/1.73 sqM); Sodium 137 mmol/L (137-145); Total Bilirubin 0.6 mg/dL (0.2-1.3); Total Protein 7.3 g/dL (6.3-8.2)
--- NOTE | 2023-09-19 12:49 | XR ---
EXAMINATION TYPE: XR chest 2V DATE OF EXAM: 09/19/2023 COMPARISON: 07/02/2021 HISTORY: 83-year-old male weakness, rule out pneumonia TECHNIQUE: AP and lateral views FINDINGS: Left anterior chest wall pacemaker generator with right atrial and right ventricular leads. Median sternotomy wires are present. Heart mildly enlarged. Diffuse interstitial density is present. Some patchy right midlung opacity also noted. No pleural effusion. IMPRESSION: 1. Mild cardiomegaly with interstitial changes, possible mild pulmonary vascular congestion. 2. Unable to exclude developing infiltrate/pneumonia at the right midlung.
[2023-09-19 12:51] LABS: Appearance,Urine Clear (Clear); Bilirubin,Urine Negative (Negative); Blood,Urine Trace (Negative); Color,Urine Light Yellow; Glucose,Urine (UA) Negative (Negative); Granular Casts,Urine 3 /lpf (0); Hyaline Casts,Urine 3 /lpf (0-2); Ketones,Urine 1+ (Negative); Leukocyte Esterase,Urine Negative (Negative); Mucus,Urine Rare /hpf; Nitrite,Urine Negative (Negative); Protein,Urine Trace (Negative); RBC,Urine 2 /hpf (0-5); Specific Gravity,Urine 1.015 (1.001-1.035); Urobilinogen,Urine <2.0 mg/dL (<2.0); WBC,Urine 1 /hpf (0-5)
[2023-09-19 13:06] LABS: INR 2.5 (<1.2); Partial Thromboplastin Time 45.5 sec (22.0-30.0); Prothrombin Time 24.6 sec (10.0-12.5)
[2023-09-19 13:19] LABS: RBC Morphology Normal
[2023-09-19] MEDS ORDERED: PNEUMONIA PROTOCOL UTILIZED 1 EACH MISC PO PRN ×2 (13:55→14:26)
[2023-09-19] MEDS ORDERED: PIPERACILLIN-TAZOBACTAM 3.375 GM in SODIUM CHLORIDE 0.9% 100 ML IVPB STA (13:55)
[2023-09-19] MEDS ORDERED: IPRATROPIUM-ALBUTEROL 3 ML NEB INHALATION PRN (13:55)
[2023-09-19] MEDS ORDERED: ACETAMINOPHEN TAB 325 MG TAB PO PRN (14:26)
[2023-09-19] MEDS: SODIUM CHLORIDE 0.9% 1,000 ML IV SCH (14:46)
--- NOTE | 2023-09-19 14:48 | P.HPIM ---
History of Present Illness H&P Date: 09/19/23 History of present illness; patient is 83-year-old gentleman with past medical h istory significant for paroxysmal atrial fibrillation , valvular heart disease status post mechanical aortic valve replacement in 1998, peripheral vascular disease status post right carotid endarterectomy 1998, hypertension and dyslipidemia presented to the ER for primary complaint of not feeling well for the last few days and cough. Patient stated that was all right 3 days ago he started complaining of cough which is productive. Patient also complaining of increasing fatigue. Denied any chest pain. There was no shortness of breath. No complain of palpitations. Denies any swelling of feet. no nausea, vomiting abdominal pain. Because of the symptoms, patient to the ER Initial lab work done in the ER showed WBC 6.5, hemoglobin 12.6, platelet count 122, sodium 137, potassium 5, BUN 56, creatinine 1.68, troponin 0.099 UA negative for infection EKG done in the ER showed ventricular paced rhythm, no ST segment elevation. Chest x-ray done in the ER showed mild cardiomegaly and interstitial changes possible mild pulmonary vascular congestion, possible pneumonia right lung base Patient admitted to medicine service REVIEW OF SYSTEMS: CONSTITUTIONAL: No fever, as mentioned above HEENT: No recent visual problems or hearing problems. Denied any sore throat. CARDIOVASCULAR: No chest pain, orthopnea, PND, no palpitations, no syncope. PULMONARY: No shortness of breath, no cough, no hemoptysis. GASTROINTESTINAL: No diarrhea, no nausea, no vomiting, no abdominal pain. NEUROLOGICAL: No headaches, no weakness, no numbness. HEMATOLOGICAL: Denies any bleeding or petechiae. GENITOURINARY: Denies any burning micturition, frequency, or urgency. MUSCULOSKELETAL/RHEUMATOLOGICAL: Denies any joint pain, swelling, or any muscle pain. ENDOCRINE: Denies any polyuria or polydipsia. The rest of the 14-point review of systems is negative. PHYSICAL EXAMINATION: GENERAL: The patient is alert and oriented x3, not in any acute distress. Well developed, well nourished. HEENT: Pupils are round and equally reacting to light. EOMI. No scleral icterus. No conjunctival pallor. Normocephalic, atraumatic. No pharyngeal erythema. No thyromegaly. CARDIOVASCULAR: S1 and S2 present. No murmurs, rubs, or gallops. PULMONARY: Coarse breath some bilaterally, no wheezing or crackles. ABDOMEN: Soft, nontender, nondistended, normoactive bowel sounds. No palpable organomegaly. MUSCULOSKELETAL: No joint swelling or deformity. EXTREMITIES: No cyanosis, clubbing, or pedal edema. NEUROLOGICAL: Gross neurological examination did not reveal any focal deficits. SKIN: No rashes. Assessment and plan Bacterial pneumonia Elevated troponin Shortness of breath Hyperlipidemia Hypertension History of aortic valve replacement Paroxysmal atrial fibrillation Atrial tachycardia Permanent pacemaker implantation Monitor vital signs Monitor CBC Monitor CMP Continue telemetry monitoring Ordered blood cultures Ordered Mucinex continue breathing treatment. IV Rocephin and doxycycline Trend troponins. Consult cardiology Consult ID Labs and medication were reviewed.. Continue same treatment. Continue with symptomatic treatment. Resume home medication. Monitor labs and vitals. DVT and GI prophylaxis. Further recommendations as per clinical course of the patient Dictation was produced using [employer] dictation software. please excuse any grammatical, word or spelling errors. Past Medical History Past Medical History: Cancer, COPD, Hyperlipidemia, Hypertension, Osteoarthritis (OA), Pneumonia, Prostate Disorder Additional Past Medical History / Comment(s): ARRYTHYTHMIA,AORTIC VALVE REPLACEMENT,PROSTATE CANCER, History of Any Multi-Drug Resistant Organisms: None Reported Past Surgical History: Cardiac Valve Replacement, Pacemaker, Tonsillectomy Additional Past Surgical History / Comment(s): vasectomy. carotid artery. Permanent Pacemaker by Dr Clark Past Anesthesia/Blood Transfusion Reactions: No Reported Reaction Past Psychological History: Depression Smoking Status: Former smoker Past Alcohol Use History: None Reported Past Drug Use History: None Reported - Past Family History Mother Family Medical History: Cancer Medications and Allergies Home Medications Medication Instructions Recorded Confirmed Type amLODIPine [Norvasc] 5 mg PO BID 05/14/19 06/28/21 History Ascorbic Acid [Vitamin C] 500 mg PO BID #20 tab 03/05/21 06/28/21 Rx Cholecalciferol [Vitamin D3 (25 50 mcg PO DAILY #20 tablet 03/05/21 06/28/21 Rx Mcg = 1000 Iu)] Atorvastatin [Lipitor] 80 mg PO HS #30 tab 03/20/21 06/28/21 Rx HYDROcodone/APAP 5-325MG [[place] 1 tab PO BID PRN #10 tab 03/20/21 06/28/21 Rx 5-325] Warfarin [Coumadin] 3 mg PO SUTUWEFRSA 04/12/21 06/28/21 History Warfarin [Coumadin] 5 mg PO MOTH 04/12/21 06/28/21 History Metoprolol Tartrate [Lopressor] 25 mg PO BID 06/11/21 06/28/21 History Ipratropium-Albuterol Nebulize 3 ml INHALATION RT-QID #4 box 06/16/21 06/28/21 Rx [Duoneb 0.5 mg-3 mg/3 ml Soln] Melatonin 6 mg PO HS PRN #30 tablet 06/16/21 06/28/21 Rx Furosemide [Lasix] 60 mg PO DAILY 30 Days #90 tab 07/01/21 Rx Spironolactone [Aldactone] 25 mg PO DAILY 30 Days #30 tab 07/01/21 Rx Amoxicillin/Potassium Clav 1 tab PO Q12HR 5 Days #10 tab 07/02/21 Rx [Augmentin 875-125 Tablet] Benzocaine/Menthol Lozeng [Cepacol 1 each MUCOUS MEM Q4HR PRN #90 07/02/21 Rx lozenge] lozenge Fluticasone/Umeclidin/Vilanter 1 puff INHALATION RT-DAILY #1 unit 07/02/21 Rx [Trelegy Ellipta 100-62.5-25] predniSONE 50 mg PO DAILY 5 Days #5 tab 07/02/21 Rx Allergies Allergy/AdvReac Type Severity Reaction Status Date / Time dopamine Allergy "WAS TOLD Verified 09/19/23 10:22 NOT TO HAVE RX AGAIN,VERY ILL STATES ALMOST " methylprednisolone AdvReac Hallucinati Verified 09/19/23 10:22 [[facility] ons Physical Exam Vitals: Vital Signs Temp Pulse Resp BP Pulse Ox 09/19/23 14:11 64 18 121/55 97 09/19/23 12:55 62 09/19/23 12:47 60 09/19/23 12:37 77 20 129/59 96 09/19/23 11:40 98.4 F 67 18 154/65 96 09/19/23 10:00 96.9 F L 60 18 147/65 98 Intake and Output 09/18/23 09/19/23 09/19/23 22:59 06:59 14:59 Other: Weight 95.254 kg Results CBC & Chem 7: 09/19/23 11:46 09/19/23 11:46 Labs: Abnormal Lab Results - Last 24 Hours (Table) 09/19/23 09/19/23 09/19/23 Range/Units 11:46 11:46 11:46 RBC 4.03 L (4.30-5.90) m/uL Hgb 12.6 L (13.0-17.5) gm/dL Hct 37.8 L (39.0-53.0) % Plt Count 122 L (150-450) k/uL Lymphocytes # 0.5 L (1.0-4.8) k/uL Monocytes # 1.1 H (0-1.0) k/uL PT 24.6 H (10.0-12.5) sec INR 2.5 H (<1.2) APTT 45.5 H (22.0-30.0) sec Carbon Dioxide 19 L (22-30) mmol/L BUN 56 H (9-20) mg/dL Creatinine 1.68 H (0.66-1.25) mg/dL Glucose 72 L (74-99) mg/dL Troponin I (0.000-0.034) ng/mL Urine Protein (Negative) Urine Ketones (Negative) Urine Blood (Negative) Hyaline Casts (0-2) /lpf Urine Mucus (None) /hpf 09/19/23 09/19/23 Range/Units 11:46 11:46 RBC (4.30-5.90) m/uL Hgb (13.0-17.5) gm/dL Hct (39.0-53.0) % Plt Count (150-450) k/uL Lymphocytes # (1.0-4.8) k/uL Monocytes # (0-1.0) k/uL PT (10.0-12.5) sec INR (<1.2) APTT (22.0-30.0) sec Carbon Dioxide (22-30) mmol/L BUN (9-20) mg/dL Creatinine (0.66-1.25) mg/dL Glucose (74-99) mg/dL Troponin I 0.099 H* (0.000-0.034) ng/mL Urine Protein Trace H (Negative) Urine Ketones 1+ H (Negative) Urine Blood Trace H (Negative) Hyaline Casts 3 H (0-2) /lpf Urine Mucus Rare H (None) /hpf
[2023-09-19] MEDS: guaiFENesin 600 MG TABLET.ER PO SCH ×2 (14:54→20:21)
[2023-09-19] MEDS: DOXYCYCLINE 100 MG in SODIUM CHLORIDE 0.9% 100 ML IVPB SCH ×2 (15:16→20:22)
[2023-09-19] MEDS: ALBUTEROL NEBULIZED 2.5 MG/3 ML INHALATION SCH ×2 (15:52→19:57)
[2023-09-19] MEDS ORDERED: WARFARIN 5 MG TAB PO ONE (18:00)
--- NOTE | 2023-09-19 21:36 | P.CONS ---
History of Present Illness - Reason for Consult Consult date: 09/19/23 pneumonia Requesting physician: Antony Quinones - Chief Complaint Weakness x few days - History of Present Illness Patient is a 83-year-old male with a past medical history significant for COPD hyperlipidemia hypertension osteoarthritis pneumonia history of prostat e cancer presenting to the [facility] ER this morning for evaluation of generalized fatigue increasing shortness of breath cough which has been moderate intensity productive some greenish sputum denies any hemoptysis. Denies any chest pain patient denies any nausea vomiting no choking on the food, no abdominal pain and no diarrhea patient on presentation to the hospital was afebrile he was not tachycardic hypotensive or hypoxic no need for supplemental oxygen patient has a normal white count. Creatinine has been mildly elevated also elevated troponin urine has been negative patient did have a chest x-ray mild, dramatically with interstitial changes unable to exclude developing infi ltrate pneumonia right midlung patient was started on doxycycline and ceftriaxone he did receive a dose of Zosyn in the ER admitted to the hospital infectious disease was consulted for further management of antibiotic therapy Review of Systems Positive point and negatives has been mentioned in the HPI, complete review of systems was performed and all other systems are negative Past Medical History Past Medical History: Cancer, COPD, Hyperlipidemia, Hypertension, Osteoarthritis (OA), Pneumonia, Prostate Disorder Additional Past Medical History / Comment(s): ARRYTHYTHMIA,AORTIC VALVE REPLACEMENT,PROSTATE CANCER, History of Any Multi-Drug Resistant Organisms: None Reported Past Surgical History: Cardiac Valve Replacement, Pacemaker, Tonsillectomy Additional Past Surgical History / Comment(s): vasectomy. carotid artery. Permanent Pacemaker by Dr Clark Past Anesthesia/Blood Transfusion Reactions: No Reported Reaction Past Psychological History: Depression Smoking Status: Former smoker Past Alcohol Use History: None Reported Past Drug Use History: None Reported - Past Family History Mother Family Medical History: Cancer Medications and Allergies Home Medications Medication Instructions Recorded Confirmed Type amLODIPine [Norvasc] 5 mg PO BID 05/14/19 09/19/23 History Warfarin [Coumadin] 5 mg PO DAILY 04/12/21 09/19/23 History Metoprolol Tartrate [Lopressor] 25 mg PO BID 06/11/21 09/19/23 History Spironolactone [Aldactone] 25 mg PO DAILY 30 Days #30 tab 07/01/21 09/19/23 Rx Atorvastatin [Lipitor] 40 mg PO DAILY 09/19/23 09/19/23 History Fluticasone Nasal [place] [Flonase 2 spray EA NOSTRIL DAILY 09/19/23 09/19/23 History Nasal [place]] Furosemide [Lasix] 20 mg PO BID 09/19/23 09/19/23 History Loratadine [Claritin] 10 mg PO DAILY 09/19/23 09/19/23 History Cholestyramine (with Sugar) 4 gm PO TID BETWEEN MEALS 7 Days 09/25/23 Rx [Questran Packet] #21 packet cephALEXin [Keflex] 750 mg PO Q12HR 7 Days #14 cap 09/25/23 Rx Allergies Allergy/AdvReac Type Severity Reaction Status Date / Time dopamine Allergy "WAS TOLD Verified 09/19/23 17:46 NOT TO HAVE RX AGAIN,VERY ILL STATES ALMOST " methylprednisolone AdvReac Hallucinati Verified 09/19/23 17:46 [From [facility]] ons Physical Exam Vitals: Vital Signs Temp Pulse Resp BP Pulse Ox 09/19/23 14:11 64 18 121/55 97 09/19/23 12:55 62 09/19/23 12:47 60 09/19/23 12:37 77 20 129/59 96 09/19/23 11:40 98.4 F 67 18 154/65 96 09/19/23 10:00 96.9 F L 60 18 147/65 98 Intake and Output 09/19/23 09/19/23 09/19/23 06:59 14:59 22:59 Other: Weight 95.254 kg GENERAL DESCRIPTION: Elderly male lying in bed, no distress. No tachypnea or accessory muscle of respiration use. HEENT: Shows Pallor , no scleral icterus. Oral mucous membrane is dry. NECK: Trachea central, no thyromegaly. LUNGS: Unlabored breathing. decreased breath sounds at the base. No wheeze or crackle. HEART: S1, S2, regular rate and rhythm. ABDOMEN: Soft, no tenderness , guarding or rigidity EXTREMITIES: No edema of feet. SKIN: No rash, no masses palpable. NEUROLOGICAL: The patient is awake, alert, oriented x3, mood and affect normal. Results CBC & Chem 7: 09/25/23 05:31 09/25/23 05:31 Labs: Abnormal Lab Results - Last 24 Hours (Table) 09/19/23 09/19/23 09/19/23 Range/Units 11:46 11:46 11:46 RBC 4.03 L (4.30-5.90) m/uL Hgb 12.6 L (13.0-17.5) gm/dL Hct 37.8 L (39.0-53.0) % Plt Count 122 L (150-450) k/uL Lymphocytes # 0.5 L (1.0-4.8) k/uL Monocytes # 1.1 H (0-1.0) k/uL PT 24.6 H (10.0-12.5) sec INR 2.5 H (<1.2) APTT 45.5 H (22.0-30.0) sec Carbon Dioxide 19 L (22-30) mmol/L BUN 56 H (9-20) mg/dL Creatinine 1.68 H (0.66-1.25) mg/dL Glucose 72 L (74-99) mg/dL Troponin I (0.000-0.034) ng/mL Urine Protein (Negative) Urine Ketones (Negative) Urine Blood (Negative) Hyaline Casts (0-2) /lpf Urine Mucus (None) /hpf 09/19/23 09/19/23 Range/Units 11:46 11:46 RBC (4.30-5.90) m/uL Hgb (13.0-17.5) gm/dL Hct (39.0-53.0) % Plt Count (150-450) k/uL Lymphocytes # (1.0-4.8) k/uL Monocytes # (0-1.0) k/uL PT (10.0-12.5) sec INR (<1.2) APTT (22.0-30.0) sec Carbon Dioxide (22-30) mmol/L BUN (9-20) mg/dL Creatinine (0.66-1.25) mg/dL Glucose (74-99) mg/dL Troponin I 0.099 H* (0.000-0.034) ng/mL Urine Protein Trace H (Negative) Urine Ketones 1+ H (Negative) Urine Blood Trace H (Negative) Hyaline Casts 3 H (0-2) /lpf Urine Mucus Rare H (None) /hpf Assessment and Plan (1) Leukocytosis Status: Acute Code(s): D72.829 - ELEVATED WHITE BLOOD CELL COUNT, UNSPECIFIED SNOMED Code(s): 714592784 (2) Pneumonia Status: Acute Code(s): J18.9 - PNEUMONIA, UNSPECIFIED ORGANISM SNOMED Code(s): 413629516 Plan: 1patient presented to hospital with congested cough with greenish sputum production in this patient with abnormal chest x-ray suggestive of right midlung developing infiltrate/pneumonia likely community-acquired pneumonia 2-we will try repeating a sputum for Gram stain and culture check a CRP and a procalcitonin level 3-continue with Rocephin and doxycycline while waiting for the culture to finalize We will follow on clinical condition and cultures to further adjust medication if needed Thank you for this consultation we will follow the patient along with you Dictation was produced using [employer] dictation software. please excuse any grammatical, word or spelling errors. Time with Patient: Greater than 30
[2023-09-20] MEDS ORDERED: ASPIRIN 81 MG PO STA (00:14)
[2023-09-20] MEDS ORDERED: HEPARIN SODIUM 1,000 UN/ML (10ML VL) IV ONE (00:14)
[2023-09-20] MEDS ORDERED: HEPARIN SODIUM 1,000 UN/ML (10ML VL) IV PRN (00:14)
[2023-09-20] MEDS ORDERED: HEPARIN SOD,PORK IN 0.45% NACL 25,000 UNIT in 0.45% NACL 1 250ML.BAG IV SCH (00:15)
[2023-09-20 07:22] LABS: Prothrombin Time 29.4 sec (10.0-12.5)
--- NOTE | 2023-09-20 07:28 | XR ---
EXAMINATION TYPE: XR chest 2V DATE OF EXAM: 09/20/2023 COMPARISON: 09/19/2023 HISTORY: 83-year-old male pneumonia TECHNIQUE: AP and lateral views FINDINGS: Heart mildly enlarged. Median sternotomy wires are present with postsurgical clips. Left anterior [address] wall pacemaker generator with right atrial and ventricular leads. Peripheral right mid lung opacit y is improving. Mild interstitial prominence. No consolidation or pleural effusion. IMPRESSION: Possible mild pulmonary vascular congestion, similar to prior. Improving aeration at the right midlun g opacity.
[2023-09-20] MEDS: ALBUTEROL NEBULIZED 2.5 MG/3 ML INHALATION SCH ×4 (08:52→20:48)
[2023-09-20] MEDS ORDERED: AZITHROMYCIN 500 MG TAB PO SCH (09:00)
--- NOTE | 2023-09-20 09:56 | P.CRDCN ---
History of Present Illness Consult date: 09/20/23 Chief complaint: Feeling weak History of present illness: The patient is a pleasant 83-year-old gentleman with a past medical history significant for valvular heart disease status post mechanical valve in aortic position as well as history of carotid atherosclerosis and permanent pacemaker and atrial fibrillation as well. The patient presented to the hospital not feeling well. He was congested having cough productive of yellowish/greenish sputum. No fever and no chills. No symptoms of chest pain or chest discomfort or shortness of breath. We consulted to see the patient because of abnormal troponin which has been flat across support. The patient did not have any symptoms as a mentioned earlier. The EKG showed underlying atrial fibrillation with ventricular paced rhythm. The troponin as a matter of fact was flat across support. The chest x-ray showed possible underlying pneumonia. The rest of the workup overall came in to be unremarkable. He was started on heparin and his PTT came in to be extremely his INR today is 3. I stopped the heparin. I with consider medical treatment for the abnormal troponin at this point. We will resume his Coumadin as scheduled at home. An echocardiogram was already performed will follow-up with that. The examination is remarkable for irregular rhythm with mechanical second heart sounds and diminished breathing sounds bilaterally and chronic skin changes no edema was noted. Assessment Underlying pneumonia Evidence of myocardial injury was no evidence of ischemia Valvular heart disease as described above Permanent atrial fibrillation Permanent pacemaker Carotid atherosclerosis Plan DC heparin and resume Coumadin No need for any further cardiac workup at this point We'll follow-up on the echo which was already ordered No need for any invasive workup regarding abnormal troponin Monitor the INR Follow-up with the patient Past Medical History Past Medical History: Cancer, COPD, Hyperlipidemia, Hypertension, Osteoarthritis (OA), Pneumonia, Prostate Disorder Additional Past Medical History / Comment(s): ARRYTHYTHMIA,AORTIC VALVE REPLACEMENT,PROSTATE CANCER, History of Any Multi-Drug Resistant Organisms: None Reported Past Surgical History: Cardiac Valve Replacement, Pacemaker, Tonsillectomy Additional Past Surgical History / Comment(s): vasectomy. carotid artery. Permanent Pacemaker by Dr Clark Past Anesthesia/Blood Transfusion Reactions: No Reported Reaction Past Psychological History: Depression Smoking Status: Former smoker Past Alcohol Use History: None Reported Past Drug Use History: None Reported - Past Family History Mother Family Medical History: Cancer Medications and Allergies Home Medications Medication Instructions Recorded Confirmed Type amLODIPine [Norvasc] 5 mg PO BID 05/14/19 09/19/23 History Warfarin [Coumadin] 5 mg PO DAILY 04/12/21 09/19/23 History Metoprolol Tartrate [Lopressor] 25 mg PO BID 06/11/21 09/19/23 History Spironolactone [Aldactone] 25 mg PO DAILY 30 Days #30 tab 07/01/21 09/19/23 Rx Atorvastatin [Lipitor] 40 mg PO DAILY 09/19/23 09/19/23 History Fluticasone Nasal [place] [Flonase 2 spray EA NOSTRIL DAILY 09/19/23 09/19/23 History Nasal [place]] Furosemide [Lasix] 20 mg PO BID 09/19/23 09/19/23 History Loratadine [Claritin] 10 mg PO DAILY 09/19/23 09/19/23 History Allergies Allergy/AdvReac Type Severity Reaction Status Date / Time dopamine Allergy "WAS TOLD Verified 09/19/23 17:46 NOT TO HAVE RX AGAIN,VERY ILL STATES ALMOST " methylprednisolone AdvReac Hallucinati Verified 09/19/23 17:46 [From [facility]] ons Physical Exam Vitals: Vital Signs Temp Pulse Resp BP Pulse Ox 09/20/23 09:02 60 09/20/23 08:54 62 09/20/23 07:57 61 18 132/69 96 09/20/23 05:24 98.1 F 64 18 122/53 95 09/20/23 02:00 62 16 126/60 94 L 09/19/23 22:14 60 19 138/49 09/19/23 20:08 64 09/19/23 20:00 60 18 117/48 09/19/23 19:59 59 L 09/19/23 18:15 98.2 F 63 20 147/49 95 09/19/23 17:25 99.1 F 61 18 148/51 94 L 09/19/23 16:10 60 17 136/50 96 09/19/23 16:04 64 09/19/23 15:54 60 09/19/23 15:18 60 19 129/52 98 09/19/23 14:11 64 18 121/55 97 09/19/23 12:55 62 09/19/23 12:47 60 09/19/23 12:37 77 20 129/59 96 09/19/23 11:40 98.4 F 67 18 154/65 96 09/19/23 10:00 96.9 F L 60 18 147/65 98 Intake and Output 09/19/23 09/20/23 09/20/23 22:59 06:59 14:59 Intake Total 72.181 Balance 72.181 Intake: Intake, IV Titration 72.181 Amount Heparin Sod,Pork in 0.45% 72.181 NaCl 25,000 unit In 0.45 % NaCl 1 250ml.bag @ 10.5 UNITS/KG/HR 10.002 mls/ hr IV .Q24H [facility] Rx#: [id number] Results 09/19/23 11:46 09/19/23 11:46 Cardiac Enzymes 09/19/23 09/19/23 09/19/23 Range/Units 11:46 11:46 15:04 AST 45 (17-59) U/L Troponin I 0.099 H* 0.096 H* (0.000-0.034) ng/mL 09/19/23 09/19/23 Range/Units 18:28 23:00 AST (17-59) U/L Troponin I 0.119 H* 0.142 H* (0.000-0.034) ng/mL Coagulation 09/19/23 09/20/23 09/20/23 Range/Units 11:46 06:06 06:06 PT 24.6 H 29.4 H (10.0-12.5) sec APTT 45.5 H >200.0 H* (22.0-30.0) sec CBC 09/19/23 Range/Units 11:46 WBC 6.5 (3.8-10.6) k/uL RBC 4.03 L (4.30-5.90) m/uL Hgb 12.6 L (13.0-17.5) gm/dL Hct 37.8 L (39.0-53.0) % Plt Count 122 L (150-450) k/uL Comprehensive Metabolic Panel 09/19/23 Range/Units 11:46 Sodium 137 (137-145) mmol/L Potassium 5.0 (3.5-5.1) mmol/L Chloride 105 (98-107) mmol/L Carbon Dioxide 19 L (22-30) mmol/L BUN 56 H (9-20) mg/dL Creatinine 1.68 H (0.66-1.25) mg/dL Glucose 72 L (74-99) mg/dL Calcium 8.7 (8.4-10.2) mg/dL AST 45 (17-59) U/L ALT 19 (4-49) U/L Alkaline Phosphatase 78 (38-126) U/L Total Protein 7.3 (6.3-8.2) g/dL Albumin 3.9 (3.5-5.0) g/dL Current Medications Generic Name Dose Route Start Last Admin Trade Name Freq PRN Reason Stop Dose Admin Acetaminophen 650 mg 09/19/23 14:26 Acetaminophen Tab 325 Mg Tab PO Q4HR PRN Fever and/ or Pain Albuterol Sulfate 2.5 mg 09/19/23 16:00 09/20/23 08:52 Albuterol Nebulized 2.5 Mg/3 Ml INHALATION 2.5 mg RT-QID JON Administration Albuterol/Ipratropium 3 ml 09/19/23 13:55 Ipratropium-Albuterol 3 Ml Neb INHALATION RT-Q4H PRN shortness of breath Amlodipine Besylate 5 mg 09/20/23 21:00 Amlodipine 5 Mg Tab PO BID JON Atorvastatin Calcium 40 mg 09/20/23 09:30 Atorvastatin 40 Mg Tab PO DAILY JON Fluticasone Propionate 2 spray 09/21/23 09:00 Fluticasone 50mcg/[place] Nasal 16gm EA NOSTRIL DAILY JON Guaifenesin 600 mg 09/19/23 14:45 09/19/23 20:21 Guaifenesin 600 Mg Tablet.Er PO 600 mg Q12HR JON Administration Heparin Sodium (Porcine) 0 unit 09/20/23 00:14 Heparin Sodium 1,000 Un/Ml (10ml Vl) IV PER PROTOCOL PRN Low PTT Protocol Sodium Chloride 1,000 mls @ 20 mls/hr 09/19/23 14:00 09/19/23 14:46 Saline 0.9% IV 20 mls/hr .Q24H JON Administration Doxycycline Hyclate 100 mg/ 100 mls @ 100 mls/hr 09/19/23 14:00 09/19/23 20:22 Sodium Chloride IVPB 100 mls/hr Q12HR JON Administration Protocol Ceftriaxone Sodium 2 gm/ 50 mls @ 100 mls/hr 09/20/23 09:00 Sodium Chloride IVPB 09/23/23 09:29 Q24HR JON Protocol Heparin Sodium/Sodium Chloride 250 mls @ 10.002 mls/hr 09/20/23 00:15 09/20/23 07:41 25,000 unit/ Sodium Chloride IV 0 units/kg/hr .Q24H JON 0 mls/hr Titration Protocol 10.5 UNITS/KG/HR Metoprolol Tartrate 25 mg 09/20/23 09:30 Metoprolol Tartrate 25 Mg Tab PO BID [facility] Miscellaneous Information 1 each 09/19/23 14:26 Pneumonia Protocol Utilized 1 Each Misc PO ONCE PRN Per Protocol Miscellaneous Information 1 each 09/19/23 14:45 Warfarin Per Pharmacy MISCELLANE DIRECTED PRN Per Protocol Protocol Spironolactone 25 mg 09/21/23 09:00 Spironolactone 25 Mg Tab PO DAILY [facility] Intake and Output 09/19/23 09/20/23 09/20/23 22:59 06:59 14:59 Intake Total 72.181 Balance 72.181 Intake: Intake, IV Titration 72.181 Amount Heparin Sod,Pork in 0.45% 72.181 NaCl 25,000 unit In 0.45 % NaCl 1 250ml.bag @ 10.5 UNITS/KG/HR 10.002 mls/ hr IV .Q24H [facility] Rx#: [id number] 09/19/23 11:46 09/19/23 11:46
[2023-09-20] MEDS: METOPROLOL TARTRATE 25 MG TAB PO SCH ×2 (10:27→20:53)
[2023-09-20] MEDS: ATORVASTATIN 40 MG TAB PO SCH (10:27)
[2023-09-20] MEDS: guaiFENesin 600 MG TABLET.ER PO SCH ×2 (10:27→20:53)
[2023-09-20 10:59] LABS: Basophils % (A) 0 %; Eosinophils % (A) 0 %; HCT 33.6 % (39.0-53.0); HGB 11.1 gm/dL (13.0-17.5); Lymphocytes # (A) 0.6 k/uL (1.0-4.8); Lymphocytes % (A) 9 %; MCH 31.6 pg (25.0-35.0); MCV 95.6 fL (80.0-100.0); Monocytes # (A) 0.8 k/uL (0-1.0); Monocytes % (A) 12 %; Neutrophils # (A) 5.3 k/uL (1.3-7.7); Neutrophils % (A) 76 %; Platelet Count 119 k/uL (150-450); RBC 3.51 m/uL (4.30-5.90); RDW 13.5 % (11.5-15.5); WBC 6.9 k/uL (3.8-10.6)
[2023-09-20 11:19] LABS: ALT 20 U/L (4-49); AST 50 U/L (17-59); African American GFR (CKD) 37 (>60 ml/min/1.73 sqM); Albumin 3.6 g/dL (3.5-5.0); Alkaline Phosphatase 77 U/L (38-126); Anion Gap 11 mmol/L; Blood Urea Nitrogen 58 mg/dL (9-20); Calcium 8.5 mg/dL (8.4-10.2); Carbon Dioxide 19 mmol/L (22-30); Chloride 107 mmol/L (98-107); Glucose 81 mg/dL (74-99); Non-African American GFR(CKD) 32 (>60 ml/min/1.73 sqM); Potassium 4.3 mmol/L (3.5-5.1); Sodium 137 mmol/L (137-145); Total Bilirubin 0.4 mg/dL (0.2-1.3)
[2023-09-20] MEDS: SODIUM CHLORIDE 0.9% 1,000 ML IV SCH (11:47)
[2023-09-20] MEDS: FLUTICASONE 50MCG/SPRAY NASAL 16GM EA NOSTRIL SCH (11:47)
--- NOTE | 2023-09-20 12:41 | P.PN ---
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 Patient stated that was all right 3 days ago he started complaining of cough which is productive. Patient also complaining of increasing fatigue. Denied any chest pain. There was no shortness of breath. No complain of palpitations. Denies any swelling of feet. no nausea, vomiting abdominal pain. Because of the symptoms, patient to the ER Initial lab work done in the ER showed WBC 6.5, hemoglobin 12.6, platelet count 122, sodium 137, potassium 5, BUN 56, creatinine 1.68, troponin 0.099 UA negative for infection EKG done in the ER showed ventricular paced rhythm, no ST segment elevation. Chest x-ray done in the ER showed mild cardiomegaly and interstitial changes possible mild pulmonary vascular congestion, possible pneumonia right lung base Patient admitted to medicine service 09/20. Patient seen and examined. Denies any cough or shortness of breath. States he is doing much better compared to yesterday REVIEW OF SYSTEMS: CONSTITUTIONAL: No fever, no malaise,. CARDIOVASCULAR: No chest pain, no palpitations, no syncope. PULMONARY: No shortness of breath, no cough, GASTROINTESTINAL: No diarrhea, no nausea, no vomiting, no abdominal pain. NEUROLOGICAL: No headaches, no weakness, PHYSICAL EXAMINATION: GENERAL: The patient is alert and oriented x3, not in any acute distress. Well developed, well nourished. HEENT: Pupils are round and equally reacting to light. EOMI. No scleral icterus. No conjunctival pallor. Normocephalic, atraumatic. No pharyngeal erythema. No thyromegaly. CARDIOVASCULAR: S1 and S2 present. No murmurs, rubs, or gallops. PULMONARY: Chest is clear to auscultation, no wheezing or crackles. ABDOMEN: Soft, nontender, nondistended, normoactive bowel sounds. No palpable organomegaly. MUSCULOSKELETAL: No joint swelling or deformity. EXTREMITIES: No cyanosis, clubbing, or pedal edema. NEUROLOGICAL: Gross neurological examination did not reveal any focal deficits. SKIN: No rashes. Assessment and plan Bacterial pneumonia NSTEMI Shortness of breath Hyperlipidemia Hypertension History of aortic valve replacement Paroxysmal atrial fibrillation Atrial tachycardia Permanent pacemaker implantation Monitor vital signs Monitor CBC Monitor CMP Continue telemetry monitoring Encourage use of incentive spirometer Follow-up on blood cultures Aggressive bronchopulmonary hygiene and Mucinex continue breathing treatment. IV Rocephin and doxycycline Ordered 2-D echo Follow-up in ID recs Follow-up on cardiology recommended, recommended no ischemic workup at this time, continue Coumadin In regards to hypertension continue Lopressor, Norvasc, Aldactone Regards to hyperlipidemia continue Lipitor In regards to hypothyroid continue Synthyroid Labs and medication were reviewed.. Continue same treatment. Continue with symptomatic treatment. Resume home medication. Monitor labs and vitals. DVT and GI prophylaxis. Further recommendations as per clinical course of the patient Dictation was produced using [employer] dictation software. please excuse any grammatical, word or spelling errors. Objective - Vital Signs Vital signs: Vital Signs Temp 98.1 F 09/20/23 05:24 Pulse 61 09/20/23 07:57 Resp 18 09/20/23 07:57 BP 132/69 09/20/23 07:57 Pulse Ox 96 09/20/23 07:57 FiO2 Intake & Output 09/19/23 09/20/23 09/20/23 18:59 06:59 18:59 Intake Total 72.181 Balance 72.181 Weight 95.254 kg Intake: Intake, IV Titration 72.181 Amount Heparin Sod,Pork in 0.45% 72.181 NaCl 25,000 unit In 0.45 % NaCl 1 250ml.bag @ 10.5 UNITS/KG/HR 10.002 mls/ hr IV .Q24H [facility] Rx#: [id number] - Labs CBC & Chem 7: 09/20/23 06:06 09/20/23 06:06 Labs: Abnormal Lab Results - Last 24 Hours (Table) 09/19/23 09/19/23 09/19/23 Range/Units 11:46 11:46 11:46 RBC 4.03 L (4.30-5.90) m/uL Hgb 12.6 L (13.0-17.5) gm/dL Hct 37.8 L (39.0-53.0) % Plt Count 122 L (150-450) k/uL Lymphocytes # 0.5 L (1.0-4.8) k/uL Monocytes # 1.1 H (0-1.0) k/uL PT 24.6 H (10.0-12.5) sec INR 2.5 H (<1.2) APTT 45.5 H (22.0-30.0) sec Carbon Dioxide 19 L (22-30) mmol/L BUN 56 H (9-20) mg/dL Creatinine 1.68 H (0.66-1.25) mg/dL Glucose 72 L (74-99) mg/dL Troponin I (0.000-0.034) ng/mL C-Reactive Protein (<1.0) mg/dL Urine Protein (Negative) Urine Ketones (Negative) Urine Blood (Negative) Hyaline Casts (0-2) /lpf Urine Mucus (None) /hpf 09/19/23 09/19/23 09/19/23 Range/Units 11:46 11:46 15:04 RBC (4.30-5.90) m/uL Hgb (13.0-17.5) gm/dL Hct (39.0-53.0) % Plt Count (150-450) k/uL Lymphocytes # (1.0-4.8) k/uL Monocytes # (0-1.0) k/uL PT (10.0-12.5) sec INR (<1.2) APTT (22.0-30.0) sec Carbon Dioxide (22-30) mmol/L BUN (9-20) mg/dL Creatinine (0.66-1.25) mg/dL Glucose (74-99) mg/dL Troponin I 0.099 H* 0.096 H* (0.000-0.034) ng/mL C-Reactive Protein (<1.0) mg/dL Urine Protein Trace H (Negative) Urine Ketones 1+ H (Negative) Urine Blood Trace H (Negative) Hyaline Casts 3 H (0-2) /lpf Urine Mucus Rare H (None) /hpf 09/19/23 09/19/23 09/20/23 Range/Units 18:28 23:00 06:06 RBC (4.30-5.90) m/uL Hgb (13.0-17.5) gm/dL Hct (39.0-53.0) % Plt Count (150-450) k/uL Lymphocytes # (1.0-4.8) k/uL Monocytes # (0-1.0) k/uL PT 29.4 H (10.0-12.5) sec INR 3.0 H (<1.2) APTT (22.0-30.0) sec Carbon Dioxide (22-30) mmol/L BUN (9-20) mg/dL Creatinine (0.66-1.25) mg/dL Glucose (74-99) mg/dL Troponin I 0.119 H* 0.142 H* (0.000-0.034) ng/mL C-Reactive Protein (<1.0) mg/dL Urine Protein (Negative) Urine Ketones (Negative) Urine Blood (Negative) Hyaline Casts (0-2) /lpf Urine Mucus (None) /hpf 09/20/23 09/20/23 Range/Units 06:06 06:06 RBC (4.30-5.90) m/uL Hgb (13.0-17.5) gm/dL Hct (39.0-53.0) % Plt Count (150-450) k/uL Lymphocytes # (1.0-4.8) k/uL Monocytes # (0-1.0) k/uL PT (10.0-12.5) sec INR (<1.2) APTT >200.0 H* (22.0-30.0) sec Carbon Dioxide (22-30) mmol/L BUN (9-20) mg/dL Creatinine (0.66-1.25) mg/dL Glucose (74-99) mg/dL Troponin I (0.000-0.034) ng/mL C-Reactive Protein 2.5 H (<1.0) mg/dL Urine Protein (Negative) Urine Ketones (Negative) Urine Blood (Negative) Hyaline Casts (0-2) /lpf Urine Mucus (None) /hpf Microbiology - Last 24 Hours (Table) 09/19/23 14:16 Gram Stain - Preliminary Sputum
[2023-09-20] MEDS: DOXYCYCLINE 100 MG in SODIUM CHLORIDE 0.9% 100 ML IVPB SCH ×2 (13:07→20:54)
[2023-09-20 16:08] LABS: RBC Morphology Normal
[2023-09-20] MEDS ORDERED: WARFARIN 5 MG TAB PO ONE (18:00)
[2023-09-20] MEDS: amLODIPine 5 MG TAB PO SCH (20:53)
[2023-09-21] MEDS: ALBUTEROL NEBULIZED 2.5 MG/3 ML INHALATION SCH ×4 (08:22→21:11)
[2023-09-21] MEDS: ATORVASTATIN 40 MG TAB PO SCH (08:23)
[2023-09-21] MEDS: METOPROLOL TARTRATE 25 MG TAB PO SCH ×2 (08:23→19:52)
[2023-09-21] MEDS: SPIRONOLACTONE 25 MG TAB PO SCH (08:23)
[2023-09-21] MEDS: guaiFENesin 600 MG TABLET.ER PO SCH ×2 (08:23→19:52)
[2023-09-21] MEDS: amLODIPine 5 MG TAB PO SCH ×2 (08:23→19:52)
[2023-09-21] MEDS: DOXYCYCLINE 100 MG in SODIUM CHLORIDE 0.9% 100 ML IVPB SCH (08:23)
--- NOTE | 2023-09-21 09:03 | P.PN ---
Subjective Progress Note Date: 09/21/23 Principal diagnosis: Valvular heart disease The patient is a pleasant 83-year-old gentleman with a past medical history significant for valvular heart disease status post mechanical valve in aortic position as well as history of carotid atherosclerosis and permanent pacemaker and atrial fibrillation as well. The patient presented to the hospital not feeling well. He was congested having cough productive of yellowish/greenish sputum. No fever and no chills. No symptoms of chest pain or chest discomfort or shortness of breath. We consulted to see the patient because of abnormal troponin which has been flat across support. The patient did not have any symptoms as a mentioned earlier. The EKG showed underlying atrial fibrillation with ventricular paced rhythm. The troponin as a matter of fact was flat across support. The chest x-ray showed possible underlying pneumonia. The rest of the workup overall came in to be unremarkable. He was started on heparin and his PTT came in to be extremely his INR today is 3. I stopped the heparin. I with consider medical treatment for the abnormal troponin at this point. We will resume his Coumadin as scheduled at home. An echocardiogram was already performed will follow-up with that. The examination is remarkable for irregular rhythm with mechanical second heart sounds and diminished breathing sounds bilaterally and chronic skin changes no edema was noted. 09/21/2023 The patient was seen and evaluated this morning. He seems to be stable. He is feeling better. The congestion is less. He is on antibiotic for pneumonia. He is back on Coumadin. No INR today. The echo still pending. From a cardiac sta ndpoint of view, would continue the current medical regimen and continue following up with the patient. Assessment Underlying pneumonia Evidence of myocardial injury was no evidence of ischemia Valvular heart disease as described above Permanent atrial fibrillation Permanent pacemaker Carotid atherosclerosis Plan Continue the current medical regimen Monitor the INR Consider starting the patient on Lovenox if the INR is subtherapeutic Follow-up with the echo cardial Objective - Vital Signs Vital signs: Vital Signs Temp 98.0 F 09/21/23 08:00 Pulse 66 09/21/23 08:36 Resp 18 09/21/23 08:00 BP 137/71 09/21/23 08:00 Pulse Ox 96 09/21/23 08:00 FiO2 Intake & Output 09/20/23 09/21/23 09/21/23 18:59 06:59 18:59 Intake Total 552.181 Output Total 825 600 100 Balance -272.819 -600 -100 Weight 95.254 kg Intake: Intake, IV Titration 72.181 Amount Heparin Sod,Pork in 0.45% 72.181 NaCl 25,000 unit In 0.45 % NaCl 1 250ml.bag @ 10.5 UNITS/KG/HR 10.002 mls/ hr IV .Q24H [facility] Rx#: [id number] Oral 480 Output: Urine 825 600 100 Other: Voiding Method Urinal Urinal # Voids 2 # Bowel Movements 1 - Labs CBC & Chem 7: 09/20/23 06:06 09/20/23 06:06 Labs: Abnormal Lab Results - Last 24 Hours (Table) 09/20/23 09/20/23 09/20/23 Range/Units 06:06 06:06 06:06 RBC 3.51 L (4.30-5.90) m/uL Hgb 11.1 L (13.0-17.5) gm/dL Hct 33.6 L (39.0-53.0) % Plt Count 119 L (150-450) k/uL Lymphocytes # 0.6 L (1.0-4.8) k/uL Carbon Dioxide 19 L (22-30) mmol/L BUN 58 H (9-20) mg/dL Creatinine 1.90 H (0.66-1.25) mg/dL Procalcitonin 0.22 H (0.02-0.09) ng/mL Microbiology - Last 24 Hours (Table) 09/19/23 14:10 Blood Culture - Preliminary Blood 09/19/23 14:16 Blood Culture - Preliminary Blood 09/19/23 14:16 Gram Stain - Preliminary Sputum
[2023-09-21 09:42] LABS: Basophils % (A) 0 %; Eosinophils % (A) 1 %; HCT 34.8 % (39.0-53.0); Lymphocytes # (A) 0.7 k/uL (1.0-4.8); Lymphocytes % (A) 14 %; MCH 30.5 pg (25.0-35.0); MCHC 31.7 g/dL (31.0-37.0); MCV 96.1 fL (80.0-100.0); Mean Platelet Volume 8.5; Monocytes # (A) 0.5 k/uL (0-1.0); Monocytes % (A) 9 %; Neutrophils # (A) 3.9 k/uL (1.3-7.7); Neutrophils % (A) 74 %; Platelet Count 131 k/uL (150-450); RBC 3.62 m/uL (4.30-5.90); RDW 13.5 % (11.5-15.5); WBC 5.3 k/uL (3.8-10.6)
[2023-09-21 09:46] LABS: INR 2.9 (<1.2)
[2023-09-21] MEDS: SODIUM CHLORIDE 0.9% 1,000 ML IV SCH (11:34)
--- NOTE | 2023-09-21 13:08 | P.PN ---
Subjective Progress Note Date: 09/20/23 Principal diagnosis: Reason for follow-up is pneumonia Patient is a 83-year-old male with a past medical history significant for COPD hyperlipidemia hypertension osteoarthritis pneumonia history of prostate cancer presenting to the [facility] ER for evaluation of generalized fatigue increasing shortness of breath cough and has been diagnosed with pneumonia. On today's evaluation that is 09/20/2023, the patient remains to be afebrile, the patient is breathing comfortably on room air and the patient denies any shortness of breath, the patient denies chest pain cough has decreased in intensity and minimal sputum production, patient denies abdominal pain, no nausea/vomiting and no diarrhea. Patient did have a white count of 6.9, creatinine 1.90, pro-calcitonin is 0.22 Objective - Vital Signs Vital signs: Vital Signs Temp 98.1 F 09/20/23 05:24 Pulse 62 09/20/23 10:00 Resp 18 09/20/23 10:00 BP 146/84 09/20/23 10:00 Pulse Ox 96 09/20/23 10:00 FiO2 Intake & Output 09/19/23 09/20/23 09/20/23 18:59 06:59 18:59 Intake Total 72.181 Balance 72.181 Weight 95.254 kg Intake: Intake, IV Titration 72.181 Amount Heparin Sod,Pork in 0.45% 72.181 NaCl 25,000 unit In 0.45 % NaCl 1 250ml.bag @ 10.5 UNITS/KG/HR 10.002 mls/ hr IV .Q24H [facility] Rx#: [id number] - Exam GENERAL DESCRIPTION: An elderly male lying in bed in no distress RESPIRATORY SYSTEM: Unlabored breathing , decreased breath sounds at the base HEART: S1 S2 regular rate and rhythm , ABDOMEN: Soft , no tenderness EXTREMITIES: No edema feet - Labs CBC & Chem 7: 09/21/23 08:54 09/20/23 06:06 Labs: Abnormal Lab Results - Last 24 Hours (Table) 09/19/23 09/19/23 09/19/23 Range/Units 11:46 11:46 11:46 RBC 4.03 L (4.30-5.90) m/uL Hgb 12.6 L (13.0-17.5) gm/dL Hct 37.8 L (39.0-53.0) % Plt Count 122 L (150-450) k/uL Lymphocytes # 0.5 L (1.0-4.8) k/uL Monocytes # 1.1 H (0-1.0) k/uL PT 24.6 H (10.0-12.5) sec INR 2.5 H (<1.2) APTT 45.5 H (22.0-30.0) sec Carbon Dioxide 19 L (22-30) mmol/L BUN 56 H (9-20) mg/dL Creatinine 1.68 H (0.66-1.25) mg/dL Glucose 72 L (74-99) mg/dL Troponin I (0.000-0.034) ng/mL C-Reactive Protein (<1.0) mg/dL Procalcitonin (0.02-0.09) ng/mL Urine Protein (Negative) Urine Ketones (Negative) Urine Blood (Negative) Hyaline Casts (0-2) /lpf Urine Mucus (None) /hpf 09/19/23 09/19/23 09/19/23 Range/Units 11:46 11:46 15:04 RBC (4.30-5.90) m/uL Hgb (13.0-17.5) gm/dL Hct (39.0-53.0) % Plt Count (150-450) k/uL Lymphocytes # (1.0-4.8) k/uL Monocytes # (0-1.0) k/uL PT (10.0-12.5) sec INR (<1.2) APTT (22.0-30.0) sec Carbon Dioxide (22-30) mmol/L BUN (9-20) mg/dL Creatinine (0.66-1.25) mg/dL Glucose (74-99) mg/dL Troponin I 0.099 H* 0.096 H* (0.000-0.034) ng/mL C-Reactive Protein (<1.0) mg/dL Procalcitonin (0.02-0.09) ng/mL Urine Protein Trace H (Negative) Urine Ketones 1+ H (Negative) Urine Blood Trace H (Negative) Hyaline Casts 3 H (0-2) /lpf Urine Mucus Rare H (None) /hpf 09/19/23 09/19/23 09/20/23 Range/Units 18:28 23:00 06:06 RBC (4.30-5.90) m/uL Hgb (13.0-17.5) gm/dL Hct (39.0-53.0) % Plt Count (150-450) k/uL Lymphocytes # (1.0-4.8) k/uL Monocytes # (0-1.0) k/uL PT (10.0-12.5) sec INR (<1.2) APTT (22.0-30.0) sec Carbon Dioxide (22-30) mmol/L BUN (9-20) mg/dL Creatinine (0.66-1.25) mg/dL Glucose (74-99) mg/dL Troponin I 0.119 H* 0.142 H* (0.000-0.034) ng/mL C-Reactive Protein (<1.0) mg/dL Procalcitonin 0.22 H (0.02-0.09) ng/mL Urine Protein (Negative) Urine Ketones (Negative) Urine Blood (Negative) Hyaline Casts (0-2) /lpf Urine Mucus (None) /hpf 09/20/23 09/20/23 09/20/23 Range/Units 06:06 06:06 06:06 RBC (4.30-5.90) m/uL Hgb (13.0-17.5) gm/dL Hct (39.0-53.0) % Plt Count (150-450) k/uL Lymphocytes # (1.0-4.8) k/uL Monocytes # (0-1.0) k/uL PT 29.4 H (10.0-12.5) sec INR 3.0 H (<1.2) APTT >200.0 H* (22.0-30.0) sec Carbon Dioxide (22-30) mmol/L BUN (9-20) mg/dL Creatinine (0.66-1.25) mg/dL Glucose (74-99) mg/dL Troponin I (0.000-0.034) ng/mL C-Reactive Protein 2.5 H (<1.0) mg/dL Procalcitonin (0.02-0.09) ng/mL Urine Protein (Negative) Urine Ketones (Negative) Urine Blood (Negative) Hyaline Casts (0-2) /lpf Urine Mucus (None) /hpf 09/20/23 09/20/23 Range/Units 06:06 06:06 RBC 3.51 L (4.30-5.90) m/uL Hgb 11.1 L (13.0-17.5) gm/dL Hct 33.6 L (39.0-53.0) % Plt Count 119 L (150-450) k/uL Lymphocytes # (1.0-4.8) k/uL Monocytes # (0-1.0) k/uL PT (10.0-12.5) sec INR (<1.2) APTT (22.0-30.0) sec Carbon Dioxide 19 L (22-30) mmol/L BUN 58 H (9-20) mg/dL Creatinine 1.90 H (0.66-1.25) mg/dL Glucose (74-99) mg/dL Troponin I (0.000-0.034) ng/mL C-Reactive Protein (<1.0) mg/dL Procalcitonin (0.02-0.09) ng/mL Urine Protein (Negative) Urine Ketones (Negative) Urine Blood (Negative) Hyaline Casts (0-2) /lpf Urine Mucus (None) /hpf Microbiology - Last 24 Hours (Table) 09/19/23 14:16 Gram Stain - Preliminary Sputum Assessment and Plan (1) Pneumonia Current Visit: Yes Status: Acute Code(s): J18.9 - PNEUMONIA, UNSPECIFIED ORGANISM SNOMED Code(s): 919172179 Plan: 1patient presented to hospital with congested cough with greenish sputum production in this patient with abnormal chest x-ray suggestive of right midlung developing infiltrate/pneumonia likely community-acquired pneumonia 2-we will try to obtain a sputum for Gram stain and culture , CRP is 2.5 and a procalcitonin level is 0.22 3-Pt to continue with Rocephin and doxycycline while waiting for the culture to finalize Dictation was produced using [employer] software. please excuse any grammatical, word or spelling errors. Time with Patient: Less than 30
--- NOTE | 2023-09-21 13:42 | P.PN ---
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 Patient stated that was all right 3 days ago he started complaining of cough which is productive. Patient also complaining of increasing fatigue. Denied any chest pain. There was no shortness of breath. No complain of palpitations. Denies any swelling of feet. no nausea, vomiting abdominal pain. Because of the symptoms, patient to the ER Initial lab work done in the ER showed WBC 6.5, hemoglobin 12.6, platelet count 122, sodium 137, potassium 5, BUN 56, creatinine 1.68, troponin 0.099 UA negative for infection EKG done in the ER showed ventricular paced rhythm, no ST segment elevation. Chest x-ray done in the ER showed mild cardiomegaly and interstitial changes possible mild pulmonary vascular congestion, possible pneumonia right lung base Patient admitted to medicine service 09/20. Patient seen and examined. Denies any cough or shortness of breath. States he is doing much better compared to yesterday 09/21. Patient seen and examined. Patient is not requiring any oxygen, patient is afebrile. INR is 2.9. States breathing has improved. REVIEW OF SYSTEMS: CONSTITUTIONAL: No fever, no malaise,. CARDIOVASCULAR: No chest pain, no palpitations, no syncope. PULMONARY: No shortness of breath, no cough, GASTROINTESTINAL: No diarrhea, no nausea, no vomiting, no abdominal pain. NEUROLOGICAL: No headaches, no weakness, PHYSICAL EXAMINATION: GENERAL: The patient is alert and oriented x3, not in any acute distress. Well developed, well nourished. HEENT: Pupils are round and equally reacting to light. EOMI. No scleral icterus. No conjunctival pallor. Normocephalic, atraumatic. No pharyngeal erythema. No thyromegaly. CARDIOVASCULAR: S1 and S2 present. No murmurs, rubs, or gallops. PULMONARY: Chest is clear to auscultation, no wheezing or crackles. ABDOMEN: Soft, nontender, nondistended, normoactive bowel sounds. No palpable organomegaly. MUSCULOSKELETAL: No joint swelling or deformity. EXTREMITIES: No cyanosis, clubbing, or pedal edema. NEUROLOGICAL: Gross neurological examination did not reveal any focal deficits. SKIN: No rashes. Assessment and plan Bacterial pneumonia NSTEMI Shortness of breath Hyperlipidemia Hypertension History of aortic valve replacement Paroxysmal atrial fibrillation Atrial tachycardia Permanent pacemaker implantation Monitor vital signs Monitor CBC Monitor CMP Continue telemetry monitoring Encourage use of incentive spirometer Follow-up on blood cultures Aggressive bronchopulmonary hygiene and Mucinex continue breathing treatment. IV Rocephin and doxycycline Ordered 2-D echo Follow-up in ID recs Follow-up on cardiology recommended, recommended no ischemic workup at this time, continue Coumadin In regards to hypertension continue Lopressor, Norvasc, Aldactone Regards to hyperlipidemia continue Lipitor In regards to hypothyroid continue Synthyroid Labs and medication were reviewed.. Continue same treatment. Continue with symptomatic treatment. Resume home medication. Monitor labs and vitals. DVT and GI prophylaxis. Further recommendations as per clinical course of the patient Dictation was produced using [employer] dictation software. please excuse any grammatical, word or spelling errors. Objective - Vital Signs Vital signs: Vital Signs Temp 98.0 F 09/21/23 08:00 Pulse 66 09/21/23 08:36 Resp 18 09/21/23 08:00 BP 137/71 09/21/23 08:00 Pulse Ox 96 09/21/23 08:00 FiO2 Intake & Output 09/20/23 09/21/23 09/21/23 18:59 06:59 18:59 Intake Total 552.181 Output Total 825 600 100 Balance -272.819 -600 -100 Weight 95.254 kg Intake: Intake, IV Titration 72.181 Amount Heparin Sod,Pork in 0.45% 72.181 NaCl 25,000 unit In 0.45 % NaCl 1 250ml.bag @ 10.5 UNITS/KG/HR 10.002 mls/ hr IV .Q24H [facility] Rx#: [id number] Oral 480 Output: Urine 825 600 100 Other: Voiding Method Urinal Urinal # Voids 2 # Bowel Movements 1 - Labs CBC & Chem 7: 09/21/23 08:54 09/20/23 06:06 Labs: Abnormal Lab Results - Last 24 Hours (Table) 09/20/23 09/20/23 09/20/23 Range/Units 06:06 06:06 06:06 RBC 3.51 L (4.30-5.90) m/uL Hgb 11.1 L (13.0-17.5) gm/dL Hct 33.6 L (39.0-53.0) % Plt Count 119 L (150-450) k/uL Lymphocytes # 0.6 L (1.0-4.8) k/uL PT (10.0-12.5) sec INR (<1.2) Carbon Dioxide 19 L (22-30) mmol/L BUN 58 H (9-20) mg/dL Creatinine 1.90 H (0.66-1.25) mg/dL Procalcitonin 0.22 H (0.02-0.09) ng/mL 09/21/23 09/21/23 Range/Units 08:54 08:54 RBC 3.62 L (4.30-5.90) m/uL Hgb 11.0 L (13.0-17.5) gm/dL Hct 34.8 L (39.0-53.0) % Plt Count 131 L (150-450) k/uL Lymphocytes # 0.7 L (1.0-4.8) k/uL PT 29.0 H (10.0-12.5) sec INR 2.9 H (<1.2) Carbon Dioxide (22-30) mmol/L BUN (9-20) mg/dL Creatinine (0.66-1.25) mg/dL Procalcitonin (0.02-0.09) ng/mL Microbiology - Last 24 Hours (Table) 09/19/23 14:10 Blood Culture - Preliminary Blood 09/19/23 14:16 Blood Culture - Preliminary Blood 09/19/23 14:16 Gram Stain - Preliminary Sputum
--- NOTE | 2023-09-21 14:10 | CA ---
Transthoracic Echo Report Name: Pete Mckinley Age: 83 Gender: M : 1940 Exam Date: 09/20/2023 15:54 Exam Location: [facility] Ht (in): 72 Wt (lb): 210 Ordering Physician: Santam Walker MD Attending/Referring Phys: Clinical Transformation Specialist Bethany Hughes RDCS Procedure CPT: Indications: Related troponin Cardiac Hx: Mechanical AOV Technical Quality: Technically difficult study Contrast 1: Definity Total Dose (mL): 1 Contrast 2: Total Dose (mL): MEASUREMENTS (Male / Female) Normal Values 2D ECHO LV Diastolic Diameter PLAX 4.5 cm 4.2 - 5.9 / 3.9 - 5.3 cm LV Systolic Diameter PLAX 3.2 cm IVS Diastolic Thickness 1.6 cm 0.6 - 1.0 / 0.6 - 0.9 cm LVPW Diastolic Thickness 1.4 cm 0.6 - 1.0 / 0.6 - 0.9 cm LV Relative Wall Thickness 0.7 RV Internal Dim ED PLAX 3.9 cm LVOT Diameter 3.0 cm LA Systolic Diameter LX 5.1 cm 3.0 - 4.0 / 2.7 - 3.8 cm LA Volume 119.9 cm??? 18 - 58 / 22 - 52 cm??? LA Volume Index 54.1 cm???/m??? 16 - 28 cm???/m??? M-MODE Aortic Root Diameter MM 3.9 cm DOPPLER AV Peak Velocity 229.1 cm/s AV Peak Gradient 21.0 mmHg AV Mean Velocity 160.8 cm/s AV Mean Gradient 11.8 mmHg AV Velocity Time Integral 48.2 cm LVOT Peak Velocity 116.5 cm/s LVOT Peak Gradient 5.4 mmHg AV Area Cont Eq pk 3.5 cm??? MV Peak Velocity 273.3 cm/s MV Peak Gradient 29.9 mmHg MV Mean Velocity 139.1 cm/s MV Mean Gradient 9.7 mmHg MV Velocity Time Integral 89.8 cm MV Area PHT 2.8 cm??? Mitral E Point Velocity 225.7 cm/s Mitral A Point Velocity 136.5 cm/s Mitral E to A Ratio 1.7 MV Deceleration Time 274.6 ms TR Peak Velocity 275.0 cm/s TR Peak Gradient 30.2 mmHg Right Ventricular Systolic Press 35.2 mmHg FINDINGS Left Ventricle Left ventricular ejection fraction is estimated at 50-55 %. Left ventricular cavity size normal. Moderate concentric left ventricular hypertrophy. Right Ventricle Moderate right ventricular dilatation. Mild pulmonary hypertension. Right Atrium Normal right atrial size. Left Atrium Moderately increased left atrial diameter. Severely increased left atrial volume. Moderately increased left atrial area. Mitral Valve Rheumatic mitral valve. Moderate mitral annular calcification. Moderate mitral stenosis with mean gradient of 10 mmHg Aortic Valve Normal functioning mechanical AOV with max gradient of 12 mmHg Tricuspid Valve Structurally normal tricuspid valve. Mild tricuspid regurgitation. Pulmonic Valve Structurally normal pulmonic valve. No pulmonic regurgitation. Pericardium No pericardial effusion. Aorta Mild aortic dilatation at the level of the sinuses of valsalva 39 mm CONCLUSIONS Technically very difficult study for interpretation Normal LV systolic function Moderate mitral stenosis Normally functioning mechanical prosthesis in aortic position Previewed by: Dr. Dell Rodríguez MD (Electronically Signed) Final Date: 21 September 2023 14:09
--- NOTE | 2023-09-21 14:16 | P.PN ---
Subjective Progress Note Date: 09/21/23 Principal diagnosis: Reason for follow-up is pneumonia Patient is a 83-year-old male with a past medical history significant for COPD hyperlipidemia hypertension osteoarthritis pneumonia history of prostate cancer presenting to the [facility] ER for evaluation of generalized fatigue increasing shortness of breath cough and has been diagnosed with pneumonia. On today's evaluation that is 09/21/2023, the patient continues to be afebrile, the patient is breathing comfortably on room air and the patient denies chest pain shortness of breath the patient cough has decreased in intensity is mostly dry in nature, patient denies nausea/vomiting , no abdominal pain and no diarrhea Patient did have a white count is 5.3, creatinine 1.90, pro-calcitonin is 0.22, sputum is growing staph aureus Objective - Vital Signs Vital signs: Vital Signs Temp 98.0 F 09/21/23 08:00 Pulse 62 09/21/23 12:16 Resp 18 09/21/23 08:00 BP 137/71 09/21/23 08:00 Pulse Ox 96 09/21/23 08:00 FiO2 Intake & Output 09/20/23 09/21/23 09/21/23 18:59 06:59 18:59 Intake Total 552.181 Output Total 825 600 100 Balance -272.819 -600 -100 Weight 95.254 kg Intake: Intake, IV Titration 72.181 Amount Heparin Sod,Pork in 0.45% 72.181 NaCl 25,000 unit In 0.45 % NaCl 1 250ml.bag @ 10.5 UNITS/KG/HR 10.002 mls/ hr IV .Q24H [facility] Rx#: [id number] Oral 480 Output: Urine 825 600 100 Other: Voiding Method Urinal Urinal # Voids 2 # Bowel Movements 1 - Exam GENERAL DESCRIPTION: An elderly male lying in bed in no distress RESPIRATORY SYSTEM: Unlabored breathing , decreased breath sounds at the base HEART: S1 S2 regular rate and rhythm , ABDOMEN: Soft , no tenderness EXTREMITIES: No edema feet - Labs CBC & Chem 7: 09/21/23 08:54 09/20/23 06:06 Labs: Abnormal Lab Results - Last 24 Hours (Table) 09/20/23 09/21/23 09/21/23 Range/Units 06:06 08:54 08:54 RBC 3.62 L (4.30-5.90) m/uL Hgb 11.0 L (13.0-17.5) gm/dL Hct 34.8 L (39.0-53.0) % Plt Count 131 L (150-450) k/uL Lymphocytes # 0.6 L 0.7 L (1.0-4.8) k/uL PT 29.0 H (10.0-12.5) sec INR 2.9 H (<1.2) Microbiology - Last 24 Hours (Table) 09/19/23 14:10 Blood Culture - Preliminary Blood 09/19/23 14:16 Blood Culture - Preliminary Blood 09/19/23 14:16 Gram Stain - Preliminary Sputum Assessment and Plan (1) Pneumonia Current Visit: Yes Status: Acute Code(s): J18.9 - PNEUMONIA, UNSPECIFIED ORGANISM SNOMED Code(s): 654891874 Plan: 1patient presented to hospital with congested cough with greenish sputum production in this patient with abnormal chest x-ray suggestive of right midlung developing infiltrate/pneumonia likely community-acquired pneumonia 2-we will try to obtain a sputum for Gram stain and culture , CRP is 2.5 and a procalcitonin level is 0.22 3-patient has shown some clinical improvement, sputum is growing staph aureus likely MSSA, patient to continue with Rocephin would discontinue doxycycline and monitoring her glucose closely Dictation was produced using [employer] dictation software. please excuse any grammatical, word or spelling errors. Time with Patient: Less than 30
[2023-09-21] MEDS ORDERED: WARFARIN 5 MG TAB PO SCH (18:00)
[2023-09-22] MEDS ORDERED: ZINC OXIDE PASTE (Z-GUARD) 1 APPLIC APPLIC TOPICAL PRN (00:12)
[2023-09-22] MEDS: ALBUTEROL NEBULIZED 2.5 MG/3 ML INHALATION SCH ×5 (09:06→19:51)
[2023-09-22 09:15] LABS: HCT 32.9 % (39.0-53.0); HGB 10.6 gm/dL (13.0-17.5); MCH 30.9 pg (25.0-35.0); MCHC 32.1 g/dL (31.0-37.0); MCV 96.4 fL (80.0-100.0); Mean Platelet Volume 9.4; Platelet Count 119 k/uL (150-450); RBC 3.41 m/uL (4.30-5.90); RDW 13.8 % (11.5-15.5); WBC 5.8 k/uL (3.8-10.6)
[2023-09-22 09:19] LABS: INR 4.2 (<1.2); Prothrombin Time 41.4 sec (10.0-12.5)
--- NOTE | 2023-09-22 09:21 | P.PN ---
Subjective Progress Note Date: 09/22/23 Principal diagnosis: Valvular heart disease The patient is a pleasant 83-year-old gentleman with a past medical history significant for valvular heart disease status post mechanical valve in aortic position as well as history of carotid atherosclerosis and permanent pacemaker and atrial fibrillation as well. The patient presented to the hospital not feeling well. He was congested having cough productive of yellowish/greenish sputum. No fever and no chills. No symptoms of chest pain or chest discomfort or shortness of breath. We consulted to see the patient because of abnormal troponin which has been flat across support. The patient did not have any symptoms as a mentioned earlier. The EKG showed underlying atrial fibrillation with ventricular paced rhythm. The troponin as a matter of fact was flat across support. The chest x-ray showed possible underlying pneumonia. The rest of the workup overall came in to be unremarkable. He was started on heparin and his PTT came in to be extremely his INR today is 3. I stopped the heparin. I with consider medical treatment for the abnormal troponin at this point. We will resume his Coumadin as scheduled at home. An echocardiogram was already performed will follow-up with that. The examination is remarkable for irregular rhythm with mechanical second heart sounds and diminished breathing sounds bilaterally and chronic skin changes no edema was noted. 09/21/2023 The patient was seen and evaluated this morning. He seems to be stable. He is feeling better. The congestion is less. He is on antibiotic for pneumonia. He is back on Coumadin. No INR today. The echo still pending. From a cardiac sta ndpoint of view, would continue the current medical regimen and continue following up with the patient. 09/22/2023 The patient was seen and evaluated this morning. He is stable and he is asymptomatic. The echo showed normal LV systolic function with normally functioning mechanical valve in aortic position and moderate mitral stenosis. He is on Coumadin and the INR has been therapeutic. He is on antibiotic. Assessment Underlying pneumonia Evidence of myocardial injury was no evidence of ischemia Valvular heart disease as described above Permanent atrial fibrillation Permanent pacemaker Carotid atherosclerosis Plan Continue the current medical regimen Monitor the INR Continue antibiotic by the internal medicine team Follow-up with the echo cardial Objective - Vital Signs Vital signs: Vital Signs Temp 98.3 F 09/22/23 09:14 Pulse 70 09/22/23 09:18 Resp 19 09/22/23 09:14 BP 143/64 09/22/23 09:14 Pulse Ox 100 09/22/23 09:14 FiO2 Intake & Output 09/21/23 09/22/23 09/22/23 18:59 06:59 18:59 Intake Total 120 Output Total 300 400 Balance -300 -400 120 Intake: Oral 120 Output: Urine 300 400 Other: Voiding Method Urinal # Bowel Movements 1 - Labs CBC & Chem 7: 09/21/23 08:54 09/20/23 06:06 Labs: Abnormal Lab Results - Last 24 Hours (Table) 09/21/23 09/21/23 09/22/23 Range/Units 08:54 08:54 08:28 RBC 3.62 L (4.30-5.90) m/uL Hgb 11.0 L (13.0-17.5) gm/dL Hct 34.8 L (39.0-53.0) % Plt Count 131 L (150-450) k/uL Lymphocytes # 0.7 L (1.0-4.8) k/uL PT 29.0 H 41.4 H (10.0-12.5) sec INR 2.9 H 4.2 H (<1.2) Microbiology - Last 24 Hours (Table) 09/19/23 14:10 Blood Culture - Preliminary Blood 09/19/23 14:16 Blood Culture - Preliminary Blood 09/19/23 14:16 Gram Stain - Preliminary Sputum Sputum Culture - Preliminary Presumptive Staph aureus
[2023-09-22] MEDS: SPIRONOLACTONE 25 MG TAB PO SCH (09:26)
[2023-09-22] MEDS: guaiFENesin 600 MG TABLET.ER PO SCH ×2 (09:26→19:51)
[2023-09-22] MEDS: ATORVASTATIN 40 MG TAB PO SCH (09:26)
[2023-09-22] MEDS: amLODIPine 5 MG TAB PO SCH ×2 (09:26→19:51)
[2023-09-22] MEDS: METOPROLOL TARTRATE 25 MG TAB PO SCH ×2 (09:30→19:51)
[2023-09-22] MEDS: FLUTICASONE 50MCG/SPRAY NASAL 16GM EA NOSTRIL SCH (09:30)
[2023-09-22 09:35] LABS: ALT 19 U/L (4-49); AST 41 U/L (17-59); African American GFR (CKD) 62 (>60 ml/min/1.73 sqM); Albumin 3.3 g/dL (3.5-5.0); Alkaline Phosphatase 66 U/L (38-126); Anion Gap 9 mmol/L; Blood Urea Nitrogen 38 mg/dL (9-20); Calcium 8.3 mg/dL (8.4-10.2); Carbon Dioxide 18 mmol/L (22-30); Chloride 112 mmol/L (98-107); Glucose 102 mg/dL (74-99); Non-African American GFR(CKD) 53 (>60 ml/min/1.73 sqM); Potassium 5.1 mmol/L (3.5-5.1); Sodium 139 mmol/L (137-145); Total Bilirubin 0.5 mg/dL (0.2-1.3); Total Protein 6.6 g/dL (6.3-8.2)
--- NOTE | 2023-09-22 13:22 | P.PN ---
Subjective Progress Note Date: 09/22/23 patient is 83-year-old gentleman with past medical history significant for paroxysmal atrial fibrillation , valvular heart disease status post mechanical aortic valve replacement in 1998, peripheral vascular disease status post right carotid endarterectomy 1998, hypertension and dyslipidemia presented to the ER for primary complaint of not feeling well for the last few days and cough. Patient stated that was all right 3 days ago he started complaining of cough which is productive. Patient also complaining of increasing fatigue. Denied any chest pain. There was no shortness of breath. No complain of palpitations. Denies any swelling of feet. no nausea, vomiting abdominal pain. Because of the symptoms, patient to the ER Initial lab work done in the ER showed WBC 6.5, hemoglobin 12.6, platelet count 122, sodium 137, potassium 5, BUN 56, creatinine 1.68, troponin 0.099 UA negative for infection EKG done in the ER showed ventricular paced rhythm, no ST segment elevation. Chest x-ray done in the ER showed mild cardiomegaly and interstitial changes possible mild pulmonary vascular congestion, possible pneumonia right lung base Patient admitted to medicine service 09/20. Patient seen and examined. Denies any cough or shortness of breath. States he is doing much better compared to yesterday 09/21. Patient seen and examined. Patient is not requiring any oxygen, patient is afebrile. INR is 2.9. States breathing has improved. 09/22. Patient seen and examined. INR this morning is 4.2, will hold Coumadin for today. States he still feeling weak REVIEW OF SYSTEMS: CONSTITUTIONAL: No fever, no malaise,. CARDIOVASCULAR: No chest pain, no palpitations, no syncope. PULMONARY: No shortness of breath, no cough, GASTROINTESTINAL: No diarrhea, no nausea, no vomiting, no abdominal pain. NEUROLOGICAL: No headaches, no weakness, PHYSICAL EXAMINATION: GENERAL: The patient is alert and oriented x3, not in any acute distress. Well developed, well nourished. HEENT: Pupils are round and equally reacting to light. EOMI. No scleral icterus. No conjunctival pallor. Normocephalic, atraumatic. No pharyngeal erythema. No t hyromegaly. CARDIOVASCULAR: S1 and S2 present. No murmurs, rubs, or gallops. PULMONARY: Chest is clear to auscultation, no wheezing or crackles. ABDOMEN: Soft, nontender, nondistended, normoactive bowel sounds. No palpable organomegaly. MUSCULOSKELETAL: No joint swelling or deformity. EXTREMITIES: No cyanosis, clubbing, or pedal edema. NEUROLOGICAL: Gross neurological examination did not reveal any focal deficits. SKIN: No rashes. Assessment and plan Bacterial pneumonia NSTEMI Shortness of breath Hyperlipidemia Hypertension History of aortic valve replacement Paroxysmal atrial fibrillation Atrial tachycardia Permanent pacemaker implantation Monitor vital signs Monitor CBC Monitor CMP Continue telemetry monitoring Encourage use of incentive spirometer Follow-up on blood cultures Aggressive bronchopulmonary hygiene and Mucinex continue breathing treatment. Continue IV Rocephin Follow-up in ID recs Follow-up on cardiology recommended, recommended no ischemic workup at this time, hold Coumadin dose today In regards to hypertension continue Lopressor, Norvasc, Aldactone Regards to hyperlipidemia continue Lipitor In regards to hypothyroid continue Synthyroid Labs and medication were reviewed.. Continue same treatment. Continue with sym ptomatic treatment. Resume home medication. Monitor labs and vitals. DVT and GI prophylaxis. Further recommendations as per clinical course of the patient Dictation was produced using [employer] dictation software. please excuse any grammatical, word or spelling errors. Objective - Vital Signs Vital signs: Vital Signs Temp 98.3 F 09/22/23 09:14 Pulse 70 09/22/23 09:18 Resp 19 09/22/23 09:14 BP 143/64 09/22/23 09:14 Pulse Ox 100 09/22/23 09:14 FiO2 Intake & Output 09/21/23 09/22/23 09/22/23 18:59 06:59 18:59 Intake Total 120 Output Total 300 400 Balance -300 -400 120 Intake: Oral 120 Output: Urine 300 400 Other: Voiding Method Urinal # Bowel Movements 1 - Labs CBC & Chem 7: 09/22/23 08:28 09/22/23 08:28 Labs: Abnormal Lab Results - Last 24 Hours (Table) 09/21/23 09/21/23 09/22/23 Range/Units 08:54 08:54 08:28 RBC 3.62 L (4.30-5.90) m/uL Hgb 11.0 L (13.0-17.5) gm/dL Hct 34.8 L (39.0-53.0) % Plt Count 131 L (150-450) k/uL Lymphocytes # 0.7 L (1.0-4.8) k/uL PT 29.0 H 41.4 H (10.0-12.5) sec INR 2.9 H 4.2 H (<1.2) Chloride (98-107) mmol/L Carbon Dioxide (22-30) mmol/L BUN (9-20) mg/dL Glucose (74-99) mg/dL Calcium (8.4-10.2) mg/dL Albumin (3.5-5.0) g/dL 09/22/23 09/22/23 Range/Units 08:28 08:28 RBC 3.41 L (4.30-5.90) m/uL Hgb 10.6 L (13.0-17.5) gm/dL Hct 32.9 L (39.0-53.0) % Plt Count 119 L (150-450) k/uL Lymphocytes # (1.0-4.8) k/uL PT (10.0-12.5) sec INR (<1.2) Chloride 112 H (98-107) mmol/L Carbon Dioxide 18 L (22-30) mmol/L BUN 38 H (9-20) mg/dL Glucose 102 H (74-99) mg/dL Calcium 8.3 L (8.4-10.2) mg/dL Albumin 3.3 L (3.5-5.0) g/dL Microbiology - Last 24 Hours (Table) 09/19/23 14:10 Blood Culture - Preliminary Blood 09/19/23 14:16 Blood Culture - Preliminary Blood 09/19/23 14:16 Gram Stain - Preliminary Sputum Sputum Culture - Preliminary Presumptive Staph aureus
[2023-09-22 14:01] LABS: Band Neutrophils % 2 %; Lymphocytes # (M) 0.58 k/uL (1.0-4.8); Monocytes # (M) 0.52 k/uL (0-1.0); Neutrophils % (M) 79 %; Nucleated Red Blood Cells 0 /100 WBC (0-0); Total Cells Counted 100
[2023-09-22 14:02] LABS: RBC Morphology Normal
[2023-09-22] MEDS: SODIUM CHLORIDE 0.9% 1,000 ML IV SCH (16:17)
[2023-09-22] MEDS ORDERED: WARFARIN 0.5 MG TAB PO ONE (18:00)
[2023-09-23] MEDS: METOPROLOL TARTRATE 25 MG TAB PO SCH ×2 (08:19→20:38)
[2023-09-23] MEDS: ATORVASTATIN 40 MG TAB PO SCH (08:19)
[2023-09-23] MEDS: SPIRONOLACTONE 25 MG TAB PO SCH (08:19)
[2023-09-23] MEDS: guaiFENesin 600 MG TABLET.ER PO SCH ×2 (08:19→20:38)
[2023-09-23] MEDS: amLODIPine 5 MG TAB PO SCH ×2 (08:19→20:38)
--- NOTE | 2023-09-23 08:21 | P.PN ---
Subjective Progress Note Date: 09/22/23 Principal diagnosis: Reason for follow-up is pneumonia Patient is a 83-year-old male with a past medical history significant for COPD hyperlipidemia hypertension osteoarthritis pneumonia history of prostate cancer presenting to the [facility] ER for evaluation of generalized fatigue increasing shortness of breath cough and has been diagnosed with pneumonia. On today's evaluation that is 09/22/2023, the patient denies any fever or any chills, the patient is breathing comfortably on room air without the need for supplemental oxygen, patient denies chest pain shortness of breath ,pt cough has decreased in intensity with occasional sputum production, patient denies Abdominal pain, no nausea/vomiting and denies having any diarrhea Patient did have a white count is 5.8, creatinine 1.25, pro-calcitonin is 0.22, sputum is growing MSSA Objective - Vital Signs Vital signs: Vital Signs Temp 98.3 F 09/22/23 09:14 Pulse 84 09/22/23 09:38 Resp 19 09/22/23 09:14 BP 143/64 09/22/23 09:14 Pulse Ox 100 09/22/23 09:14 FiO2 Intake & Output 09/21/23 09/22/23 09/22/23 18:59 06:59 18:59 Intake Total 120 Output Total 300 400 300 Balance -300 -400 -180 Intake: Oral 120 Output: Urine 300 400 300 Other: Voiding Method Urinal Urinal # Bowel Movements 1 - Exam GENERAL DESCRIPTION: An elderly male lying in bed in no distress RESPIRATORY SYSTEM: Unlabored breathing , decreased breath sounds at the base HEART: S1 S2 regular rate and rhythm , ABDOMEN: Soft , no tenderness EXTREMITIES: No edema feet - Labs CBC & Chem 7: 09/22/23 08:28 09/22/23 08:28 Labs: Abnormal Lab Results - Last 24 Hours (Table) 09/22/23 09/22/23 09/22/23 Range/Units 08:28 08:28 08:28 RBC 3.41 L (4.30-5.90) m/uL Hgb 10.6 L (13.0-17.5) gm/dL Hct 32.9 L (39.0-53.0) % Plt Count 119 L (150-450) k/uL PT 41.4 H (10.0-12.5) sec INR 4.2 H (<1.2) Chloride 112 H (98-107) mmol/L Carbon Dioxide 18 L (22-30) mmol/L BUN 38 H (9-20) mg/dL Glucose 102 H (74-99) mg/dL Calcium 8.3 L (8.4-10.2) mg/dL Albumin 3.3 L (3.5-5.0) g/dL Microbiology - Last 24 Hours (Table) 09/19/23 14:10 Blood Culture - Preliminary Blood 09/19/23 14:16 Blood Culture - Preliminary Blood 09/19/23 14:16 Gram Stain - Preliminary Sputum Sputum Culture - Preliminary Presumptive Staph aureus Assessment and Plan (1) Pneumonia Current Visit: Yes Status: Acute Code(s): J18.9 - PNEUMONIA, UNSPECIFIED ORGANISM SNOMED Code(s): 436980989 Plan: 1patient presented to hospital with congested cough with greenish sputum production in this patient with abnormal chest x-ray suggestive of right midlung developing infiltrate/pneumonia likely community-acquired pneumonia 2-we will try to obtain a sputum for Gram stain and culture , CRP is 2.5 and a procalcitonin level is 0.22 3-patient has shown some clinical improvement, sputum is growing MSSA, I will discontinue Rocephin and start the patient on cefazolin 2 g every 8 hours with a plan to finish therapy with oral antibiotics Dictation was produced using [employer] dictation software. please excuse any grammatical, word or spelling errors.
[2023-09-23] MEDS: FLUTICASONE 50MCG/SPRAY NASAL 16GM EA NOSTRIL SCH (08:26)
[2023-09-23] MEDS: ALBUTEROL NEBULIZED 2.5 MG/3 ML INHALATION SCH ×4 (08:37→21:23)
[2023-09-23 09:20] LABS: HCT 33.3 % (39.0-53.0); HGB 10.6 gm/dL (13.0-17.5); MCH 30.5 pg (25.0-35.0); MCHC 31.9 g/dL (31.0-37.0); MCV 95.7 fL (80.0-100.0); Mean Platelet Volume 9.6; Platelet Count 120 k/uL (150-450); RBC 3.48 m/uL (4.30-5.90); RDW 13.8 % (11.5-15.5); WBC 6.9 k/uL (3.8-10.6)
[2023-09-23 09:36] LABS: INR 4.8 (<1.2); Prothrombin Time 46.5 sec (10.0-12.5)
[2023-09-23 09:46] LABS: ALT 15 U/L (4-49); AST 35 U/L (17-59); African American GFR (CKD) 62 (>60 ml/min/1.73 sqM); Albumin 3.1 g/dL (3.5-5.0); Alkaline Phosphatase 79 U/L (38-126); Anion Gap 7 mmol/L; Blood Urea Nitrogen 31 mg/dL (9-20); Calcium 8.3 mg/dL (8.4-10.2); Carbon Dioxide 22 mmol/L (22-30); Chloride 112 mmol/L (98-107); Glucose 106 mg/dL (74-99); Non-African American GFR(CKD) 54 (>60 ml/min/1.73 sqM); Potassium 4.6 mmol/L (3.5-5.1); Sodium 141 mmol/L (137-145); Total Bilirubin 0.4 mg/dL (0.2-1.3); Total Protein 6.3 g/dL (6.3-8.2)
--- NOTE | 2023-09-23 09:46 | P.PN ---
Subjective Progress Note Date: 09/23/23 Principal diagnosis: Valvular heart disease The patient is a pleasant 83-year-old gentleman with a past medical history significant for valvular heart disease status post mechanical valve in aortic position as well as history of carotid atherosclerosis and permanent pacemaker and atrial fibrillation as well. The patient presented to the hospital not feeling well. He was congested having cough productive of yellowish/greenish sputum. No fever and no chills. No symptoms of chest pain or chest discomfort or shortness of breath. We consulted to see the patient because of abnormal troponin which has been flat across support. The patient did not have any symptoms as a mentioned earlier. The EKG showed underlying atrial fibrillation with ventricular paced rhythm. The troponin as a matter of fact was flat across support. The chest x-ray showed possible underlying pneumonia. The rest of the workup overall came in to be unremarkable. He was started on heparin and his PTT came in to be extremely his INR today is 3. I stopped the heparin. I with consider medical treatment for the abnormal troponin at this point. We will resume his Coumadin as scheduled at home. An echocardiogram was already performed will follow-up with that. The examination is remarkable for irregular rhythm with mechanical second heart sounds and diminished breathing sounds bilaterally and chronic skin changes no edema was noted. 09/21/2023 The patient was seen and evaluated this morning. He seems to be stable. He is feeling better. The congestion is less. He is on antibiotic for pneumonia. He is back on Coumadin. No INR today. The echo still pending. From a cardiac sta ndpoint of view, would continue the current medical regimen and continue following up with the patient. 09/22/2023 The patient was seen and evaluated this morning. He is stable and he is asymptomatic. The echo showed normal LV systolic function with normally functioning mechanical valve in aortic position and moderate mitral stenosis. He is on Coumadin and the INR has been therapeutic. He is on antibiotic. 09/23/2023 The patient was seen and evaluated this morning. He is asymptomatic from a cardiovascular standpoint of view. He is hemodynamically stable. The INR continues to be therapeutic. He did have an episode of diarrhea last night but no more episodes since then. He continues to be on antibiotic. From a cardiovascular standpoint, patient is stable and potentially can be discharged home in the next 12-24 hours. The examination is remarkable for irregular rhythm with a clear breathing sounds bilaterally and no edema in the lower extremities Assessment Underlying pneumonia Evidence of myocardial injury was no evidence of ischemia Valvular heart disease as described above Permanent atrial fibrillation Permanent pacemaker Carotid atherosclerosis Plan Continue the current medical regimen The patient potentially can be discharged home in the next 12-24 hours Objective - Vital Signs Vital signs: Vital Signs Temp 97.9 F 09/23/23 08:00 Pulse 65 09/23/23 08:47 Resp 16 09/23/23 08:00 BP 135/73 09/23/23 08:00 Pulse Ox 98 09/23/23 08:00 FiO2 Intake & Output 09/22/23 09/23/23 09/23/23 18:59 06:59 18:59 Intake Total 360 100 Output Total 600 450 Balance -240 -450 100 Intake: Oral 360 100 Output: Urine 600 450 Other: Voiding Method Urinal Urinal # Voids 1 1 # Bowel Movements 1 1 - Labs CBC & Chem 7: 09/23/23 08:16 09/22/23 08:28 Labs: Abnormal Lab Results - Last 24 Hours (Table) 09/22/23 09/23/23 Range/Units 08:28 08:16 RBC 3.48 L (4.30-5.90) m/uL Hgb 10.6 L (13.0-17.5) gm/dL Hct 33.3 L (39.0-53.0) % Plt Count 120 L (150-450) k/uL Lymphocytes # (Manual) 0.58 L (1.0-4.8) k/uL Microbiology - Last 24 Hours (Table) 09/19/23 14:10 Blood Culture - Preliminary Blood 09/19/23 14:16 Blood Culture - Preliminary Blood 09/19/23 14:16 Gram Stain - Final Sputum Sputum Culture - Final Staphylococcus aureus
--- NOTE | 2023-09-23 12:51 | P.PN ---
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 Patient stated that was all right 3 days ago he started complaining of cough which is productive. Patient also complaining of increasing fatigue. Denied any chest pain. There was no shortness of breath. No complain of palpitations. Denies any swelling of feet. no nausea, vomiting abdominal pain. Because of the symptoms, patient to the ER Initial lab work done in the ER showed WBC 6.5, hemoglobin 12.6, platelet count 122, sodium 137, potassium 5, BUN 56, creatinine 1.68, troponin 0.099 UA negative for infection EKG done in the ER showed ventricular paced rhythm, no ST segment elevation. Chest x-ray done in the ER showed mild cardiomegaly and interstitial changes possible mild pulmonary vascular congestion, possible pneumonia right lung base Patient admitted to medicine service 09/20. Patient seen and examined. Denies any cough or shortness of breath. States he is doing much better compared to yesterday 09/21. Patient seen and examined. Patient is not requiring any oxygen, patient is afebrile. INR is 2.9. States breathing has improved. 09/22. Patient seen and examined. INR this morning is 4.2, will hold Coumadin for today. States he still feeling weak 09/23. Patient seen and examined. States weakness is improving. Short of breath on exertion. No shortness of breath at rest. Complaining of diarrhea. INR this morning is 4.8 REVIEW OF SYSTEMS: CONSTITUTIONAL: No fever, no malaise,. CARDIOVASCULAR: No chest pain, no palpitations, no syncope. PULMONARY: As mentioned above GASTROINTESTINAL: no nausea, no vomiting, no abdominal pain. NEUROLOGICAL: No headaches, no weakness, PHYSICAL EXAMINATION: GENERAL: The patient is alert and oriented x3, not in any acute distress. Well developed, well nourished. HEENT: Pupils are round and equally reacting to light. EOMI. No scleral icterus. No conjunctival pallor. Normocephalic, atraumatic. No pharyngeal erythema. No thyromegaly. CARDIOVASCULAR: S1 and S2 present. No murmurs, rubs, or gallops. PULMONARY: Chest is clear to auscultation, no wheezing or crackles. ABDOMEN: Soft, nontender, nondistended, normoactive bowel sounds. No palpable organomegaly. MUSCULOSKELETAL: No joint swelling or deformity. EXTREMITIES: No cyanosis, clubbing, or pedal edema. NEUROLOGICAL: Gross neurological examination did not reveal any focal deficits. SKIN: No rashes. Assessment and plan Bacterial pneumonia NSTEMI Shortness of breath Hyperlipidemia Hypertension History of aortic valve replacement Paroxysmal atrial fibrillation Atrial tachycardia Permanent pacemaker implantation Monitor vital signs Monitor CBC Monitor CMP Continue telemetry monitoring Encourage use of incentive spirometer Follow-up on blood cultures Aggressive bronchopulmonary hygiene and Mucinex continue breathing treatment. Sputum culture growing MSSA Antibiotics changed to IV cefazolin Follow-up in ID recs Follow-up on cardiology recommended, recommended no ischemic workup at this time, hold Coumadin dose today again as INR is 4.8 In regards to hypertension continue Lopressor, Norvasc, Aldactone Regards to hyperlipidemia continue Lipitor In regards to hypothyroid continue Synthyroid Labs and medication were reviewed.. Continue same treatment. Continue with symptomatic treatment. Resume home medication. Monitor labs and vitals. DVT and GI prophylaxis. Further recommendations as per clinical course of the patient Dictation was produced using [employer] dictation software. please excuse any grammatical, word or spelling errors. Objective - Vital Signs Vital signs: Vital Signs Temp 97.9 F 09/23/23 08:00 Pulse 68 09/23/23 11:43 Resp 16 09/23/23 08:00 BP 135/73 09/23/23 08:00 Pulse Ox 98 09/23/23 08:00 FiO2 Intake & Output 09/22/23 09/23/23 09/23/23 18:59 06:59 18:59 Intake Total 360 100 Output Total 600 450 200 Balance -240 -450 -100 Intake: Oral 360 100 Output: Urine 600 450 200 Other: Voiding Method Urinal Urinal Urinal # Voids 1 1 2 # Bowel Movements 1 1 - Labs CBC & Chem 7: 09/23/23 08:16 09/23/23 08:16 Labs: Abnormal Lab Results - Last 24 Hours (Table) 09/22/23 09/23/23 09/23/23 Range/Units 08:28 08:16 08:16 RBC 3.48 L (4.30-5.90) m/uL Hgb 10.6 L (13.0-17.5) gm/dL Hct 33.3 L (39.0-53.0) % Plt Count 120 L (150-450) k/uL Lymphocytes # (Manual) 0.58 L (1.0-4.8) k/uL PT (10.0-12.5) sec INR (<1.2) Chloride 112 H (98-107) mmol/L BUN 31 H (9-20) mg/dL Glucose 106 H (74-99) mg/dL Calcium 8.3 L (8.4-10.2) mg/dL Albumin 3.1 L (3.5-5.0) g/dL 09/23/23 Range/Units 08:16 RBC (4.30-5.90) m/uL Hgb (13.0-17.5) gm/dL Hct (39.0-53.0) % Plt Count (150-450) k/uL Lymphocytes # (Manual) (1.0-4.8) k/uL PT 46.5 H (10.0-12.5) sec INR 4.8 H (<1.2) Chloride (98-107) mmol/L BUN (9-20) mg/dL Glucose (74-99) mg/dL Calcium (8.4-10.2) mg/dL Albumin (3.5-5.0) g/dL Microbiology - Last 24 Hours (Table) 09/19/23 14:10 Blood Culture - Preliminary Blood 09/19/23 14:16 Blood Culture - Preliminary Blood 09/19/23 14:16 Gram Stain - Final Sputum Sputum Culture - Final Staphylococcus aureus
[2023-09-23] MEDS: LACTOBACILLUS ACIDOPHILUS/PECT 1 EACH CAPSULE PO SCH ×2 (14:56→20:38)
[2023-09-23] MEDS ORDERED: WARFARIN 0.5 MG TAB PO ONE (18:00)
[2023-09-23] MEDS: SODIUM CHLORIDE 0.9% 1,000 ML IV SCH (19:53)
--- NOTE | 2023-09-23 20:26 | P.PN ---
Subjective Progress Note Date: 09/23/23 Principal diagnosis: Reason for follow-up is pneumonia Patient is a 83-year-old male with a past medical history significant for COPD hyperlipidemia hypertension osteoarthritis pneumonia history of prostate cancer presenting to the [facility] ER for evaluation of generalized fatigue increasing shortness of breath cough and has been diagnosed with pneumonia. On today's evaluation that is 09/23/2023, the patient remains to be afebrile, the patient is breathing comfortably on room air and the patient denies any shortness of breath, the patient denies chest pain, the patient cough has decreased in intensity and no significant sputum production no nausea vomiting abdominal pain has been complaining of some diarrhea started last night Patient did have a white count of 6.9, creatinine is 1.24 sputum with MSSA. Objective - Vital Signs Vital signs: Vital Signs Temp 98.7 F 09/23/23 03:25 Pulse 65 09/23/23 03:25 Resp 20 09/23/23 03:25 BP 141/65 09/23/23 03:25 Pulse Ox 98 09/23/23 03:25 FiO2 Intake & Output 09/22/23 09/23/23 09/23/23 18:59 06:59 18:59 Intake Total 360 100 Output Total 600 450 Balance -240 -450 100 Intake: Oral 360 100 Output: Urine 600 450 Other: Voiding Method Urinal Urinal # Voids 1 1 # Bowel Movements 1 1 - Exam GENERAL DESCRIPTION: An elderly male lying in bed in no distress RESPIRATORY SYSTEM: Unlabored breathing , decreased breath sounds at the base HEART: S1 S2 regular rate and rhythm , ABDOMEN: Soft , no tenderness EXTREMITIES: No edema feet - Labs CBC & Chem 7: 09/23/23 08:16 09/23/23 08:16 Labs: Abnormal Lab Results - Last 24 Hours (Table) 09/22/23 09/22/23 09/22/23 Range/Units 08:28 08:28 08:28 RBC 3.41 L (4.30-5.90) m/uL Hgb 10.6 L (13.0-17.5) gm/dL Hct 32.9 L (39.0-53.0) % Plt Count 119 L (150-450) k/uL Lymphocytes # (Manual) 0.58 L (1.0-4.8) k/uL PT 41.4 H (10.0-12.5) sec INR 4.2 H (<1.2) Chloride 112 H (98-107) mmol/L Carbon Dioxide 18 L (22-30) mmol/L BUN 38 H (9-20) mg/dL Glucose 102 H (74-99) mg/dL Calcium 8.3 L (8.4-10.2) mg/dL Albumin 3.3 L (3.5-5.0) g/dL Microbiology - Last 24 Hours (Table) 09/19/23 14:10 Blood Culture - Preliminary Blood 09/19/23 14:16 Blood Culture - Preliminary Blood 09/19/23 14:16 Gram Stain - Final Sputum Sputum Culture - Final Staphylococcus aureus Assessment and Plan (1) Pneumonia Current Visit: Yes Status: Acute Code(s): J18.9 - PNEUMONIA, UNSPECIFIED ORGANISM SNOMED Code(s): 316743335 Plan: 1patient presented to hospital with congested cough with greenish sputum production in this patient with abnormal chest x-ray suggestive of right midlung developing infiltrate/pneumonia likely community-acquired pneumonia 2-we will try to obtain a sputum for Gram stain and culture , CRP is 2.5 and a procalcitonin level is 0.22 3patient to continue with the cefazolin 2 g every 8 hours for underlying MSSA pneumonia however will be able to finish therapy with oral antibiotics. 4patient with diarrhea more likely antibiotic associated, patient encouraged to increase his probiotic and yogurt intake Dictation was produced using [employer] dictation software. please excuse any grammatical, word or spelling errors.
[2023-09-24 07:12] LABS: INR 3.7 (<1.2); Prothrombin Time 36.4 sec (10.0-12.5)
[2023-09-24] MEDS: ALBUTEROL NEBULIZED 2.5 MG/3 ML INHALATION SCH ×4 (08:32→18:04)
[2023-09-24] MEDS: METOPROLOL TARTRATE 25 MG TAB PO SCH ×2 (08:45→20:09)
[2023-09-24] MEDS: guaiFENesin 600 MG TABLET.ER PO SCH ×2 (08:45→20:09)
[2023-09-24] MEDS: LACTOBACILLUS ACIDOPHILUS/PECT 1 EACH CAPSULE PO SCH ×3 (08:45→20:09)
[2023-09-24] MEDS: amLODIPine 5 MG TAB PO SCH ×2 (08:45→20:09)
[2023-09-24] MEDS: ATORVASTATIN 40 MG TAB PO SCH (08:45)
[2023-09-24] MEDS: SPIRONOLACTONE 25 MG TAB PO SCH (08:45)
[2023-09-24] MEDS: FLUTICASONE 50MCG/SPRAY NASAL 16GM EA NOSTRIL SCH (08:47)
[2023-09-24 09:48] LABS: Basophils # (A) 0.01 X 10*3/uL (0.00-0.10); Basophils % (A) 0.1 %; Eosinophils % (A) 1.5 %; HCT 34.1 % (39.6-50.0); HGB 10.5 g/dL (13.0-17.0); Lymphocytes # (A) 0.55 X 10*3/uL (0.90-5.00); Lymphocytes % (A) 8.2 %; MCH 29.7 pg (27.0-32.0); MCHC 30.8 g/dL (32.0-37.0); MCV 96.6 FL (80.0-97.0); Mean Platelet Volume 11.1 FL (9.5-12.2); Monocytes % (A) 11.9 %; NRBC Per 100 WBC 0 X 10*3/uL (0.00-0.01); Neutrophils # (A) 5.21 X 10*3/uL (1.80-7.70); Neutrophils % (A) 77.9 %; Platelet Count 137 X 10*3/uL (140-440); RBC 3.53 X 10*6/uL (4.40-5.60); RDW 13.6 % (11.5-14.5)
[2023-09-24] MEDS: CHOLESTYRAMINE (WITH SUGAR) 4 GM PACKET PO SCH ×3 (10:11→18:35)
--- NOTE | 2023-09-24 12:52 | P.PN ---
Subjective Progress Note Date: 09/24/23 patient is 83-year-old gentleman with past medical history significant for paroxysmal atrial fibrillation , valvular heart disease status post mechanical aortic valve replacement in 1998, peripheral vascular disease status post right carotid endarterectomy 1998, hypertension and dyslipidemia presented to the ER for primary complaint of not feeling well for the last few days and cough. Patient stated that was all right 3 days ago he started complaining of cough which is productive. Patient also complaining of increasing fatigue. Denied any chest pain. There was no shortness of breath. No complain of palpitations. Denies any swelling of feet. no nausea, vomiting abdominal pain. Because of the symptoms, patient to the ER Initial lab work done in the ER showed WBC 6.5, hemoglobin 12.6, platelet count 122, sodium 137, potassium 5, BUN 56, creatinine 1.68, troponin 0.099 UA negative for infection EKG done in the ER showed ventricular paced rhythm, no ST segment elevation. Chest x-ray done in the ER showed mild cardiomegaly and interstitial changes possible mild pulmonary vascular congestion, possible pneumonia right lung base Patient admitted to medicine service 09/20. Patient seen and examined. Denies any cough or shortness of breath. States he is doing much better compared to yesterday 09/21. Patient seen and examined. Patient is not requiring any oxygen, patient is afebrile. INR is 2.9. States breathing has improved. 09/22. Patient seen and examined. INR this morning is 4.2, will hold Coumadin for today. States he still feeling weak 09/23. Patient seen and examined. States weakness is improving. Short of breath on exertion. No shortness of breath at rest. Complaining of diarrhea. INR this morning is 4.8 09/24. Patient seen and examined. INR has improved, today is 3.7, continue to hold Coumadin. Does not require any room air. Patient is weak requiring assistance. No fever or chills. Still complaining of diarrhea, had 2 stools overnight REVIEW OF SYSTEMS: CONSTITUTIONAL: No fever, no malaise,. CARDIOVASCULAR: No chest pain, no palpitations, no syncope. PULMONARY: As mentioned above GASTROINTESTINAL: no nausea, no vomiting, no abdominal pain. NEUROLOGICAL: No headaches, no weakness, PHYSICAL EXAMINATION: GENERAL: The patient is alert and oriented x3, not in any acute distress. Well developed, well nourished. HEENT: Pupils are round and equally reacting to light. EOMI. No scleral icterus. No conjunctival pallor. Normocephalic, atraumatic. No pharyngeal erythema. No thyromegaly. CARDIOVASCULAR: S1 and S2 present. No murmurs, rubs, or gallops. PULMONARY: Diminished breath sounds at the bases bilaterally, no wheezing or crackles. ABDOMEN: Soft, nontender, nondistended, normoactive bowel sounds. No palpable organomegaly. MUSCULOSKELETAL: No joint swelling or deformity. EXTREMITIES: No cyanosis, clubbing, or pedal edema. NEUROLOGICAL: Gross neurological examination did not reveal any focal deficits. SKIN: No rashes. Assessment and plan Bacterial pneumonia NSTEMI Shortness of breath Hyperlipidemia Hypertension History of aortic valve replacement Paroxysmal atrial fibrillation Atrial tachycardia Permanent pacemaker implantation Monitor vital signs Monitor CBC Monitor CMP Continue telemetry monitoring Encourage use of incentive spirometer Follow-up on blood cultures Aggressive bronchopulmonary hygiene and Mucinex continue breathing treatment. Sputum culture growing MSSA, continue IV cefazolin Follow-up in ID recs Follow-up on cardiology recommended, recommended no ischemic workup at this time, hold Coumadin dose today again as INR is 4.8 In regards to hypertension continue Lopressor, Norvasc, Aldactone Regards to hyperlipidemia continue Lipitor In regards to hypothyroid continue Synthyroid Labs and medication were reviewed.. Continue same treatment. Continue with symptomatic treatment. Resume home medication. Monitor labs and vitals. DVT and GI prophylaxis. Further recommendations as per clinical course of the patient Dictation was produced using [employer] dictation software. please excuse any gr ammatical, word or spelling errors. Objective - Vital Signs Vital signs: Vital Signs Temp 97.6 F 09/24/23 06:57 Pulse 62 09/24/23 06:57 Resp 18 09/24/23 06:57 BP 156/68 09/24/23 06:57 Pulse Ox 99 09/24/23 06:57 FiO2 Intake & Output 09/23/23 09/24/23 09/24/23 18:59 06:59 18:59 Intake Total 680 Output Total 825 500 Balance -145 -500 Intake: Intake, IV Titration 100 Amount ceFAZolin 2 gm In Sodium 100 Chloride 0.9% 50 ml @ 100 mls/hr IVPB Q8HR [facility] Rx# :[id number] Oral 580 Output: Urine 825 500 Other: Voiding Method Urinal Urinal # Voids 3 1 # Bowel Movements 1 3 - Labs CBC & Chem 7: 09/24/23 06:17 09/23/23 08:16 Labs: Abnormal Lab Results - Last 24 Hours (Table) 09/23/23 09/23/23 09/24/23 Range/Units 08:16 08:16 06:17 PT 46.5 H 36.4 H (10.0-12.5) sec INR 4.8 H 3.7 H (<1.2) Chloride 112 H (98-107) mmol/L BUN 31 H (9-20) mg/dL Glucose 106 H (74-99) mg/dL Calcium 8.3 L (8.4-10.2) mg/dL Albumin 3.1 L (3.5-5.0) g/dL Microbiology - Last 24 Hours (Table) 09/19/23 14:16 Legionella Culture - Preliminary Sputum
--- NOTE | 2023-09-24 13:53 | P.PN ---
Subjective Progress Note Date: 09/24/23 Principal diagnosis: Valvular heart disease The patient is a pleasant 83-year-old gentleman with a past medical history significant for valvular heart disease status post mechanical valve in aortic position as well as history of carotid atherosclerosis and permanent pacemaker and atrial fibrillation as well. The patient presented to the hospital not feeling well. He was congested having cough productive of yellowish/greenish sputum. No fever and no chills. No symptoms of chest pain or chest discomfort or shortness of breath. We consulted to see the patient because of abnormal troponin which has been flat across support. The patient did not have any symptoms as a mentioned earlier. The EKG showed underlying atrial fibrillation with ventricular paced rhythm. The troponin as a matter of fact was flat across support. The chest x-ray showed possible underlying pneumonia. The rest of the workup overall came in to be unremarkable. He was started on heparin and his PTT came in to be extremely his INR today is 3. I stopped the heparin. I with consider medical treatment for the abnormal troponin at this point. We will resume his Coumadin as scheduled at home. An echocardiogram was already performed will follow-up with that. The examination is remarkable for irregular rhythm with mechanical second heart sounds and diminished breathing sounds bilaterally and chronic skin changes no edema was noted. 09/21/2023 The patient was seen and evaluated this morning. He seems to be stable. He is feeling better. The congestion is less. He is on antibiotic for pneumonia. He is back on Coumadin. No INR today. The echo still pending. From a cardiac sta ndpoint of view, would continue the current medical regimen and continue following up with the patient. 09/22/2023 The patient was seen and evaluated this morning. He is stable and he is asymptomatic. The echo showed normal LV systolic function with normally functioning mechanical valve in aortic position and moderate mitral stenosis. He is on Coumadin and the INR has been therapeutic. He is on antibiotic. 09/23/2023 The patient was seen and evaluated this morning. He is asymptomatic from a cardiovascular standpoint of view. He is hemodynamically stable. The INR continues to be therapeutic. He did have an episode of diarrhea last night but no more episodes since then. He continues to be on antibiotic. From a cardiovascular standpoint, patient is stable and potentially can be discharged home in the next 12-24 hours. The examination is remarkable for irregular rhythm with a clear breathing sounds bilaterally and no edema in the lower extremities 09/24/2023 The patient was seen and evaluated this morning. He is asymptomatic from the cardiovascular standpoint overview. The INR is therapeutic. He has been having diarrhea. From the cardiac vascular standpoint of view, we'll continue the current medical regimen and follow-up with the patient on as needed case Assessment Underlying pneumonia Evidence of myocardial injury was no evidence of ischemia Valvular heart disease as described above Permanent atrial fibrillation Permanent pacemaker Carotid atherosclerosis Plan Continue the current medical regimen The patient potentially can be discharged home in the next 12-24 hours Follow-up with the patient as necessary Objective - Vital Signs Vital signs: Vital Signs Temp 97.6 F 09/24/23 06:57 Pulse 67 09/24/23 12:04 Resp 18 09/24/23 08:19 BP 156/68 09/24/23 06:57 Pulse Ox 99 09/24/23 06:57 FiO2 Intake & Output 09/23/23 09/24/23 09/24/23 18:59 06:59 18:59 Intake Total 680 Output Total 825 500 Balance -145 -500 Intake: Intake, IV Titration 100 Amount ceFAZolin 2 gm In Sodium 100 Chloride 0.9% 50 ml @ 100 mls/hr IVPB Q8HR [facility] Rx# :[id number] Oral 580 Output: Urine 825 500 Other: Voiding Method Urinal Urinal Bedside Commode Urinal # Voids 3 1 # Bowel Movements 1 3 - Labs CBC & Chem 7: 09/24/23 06:17 09/23/23 08:16 Labs: Abnormal Lab Results - Last 24 Hours (Table) 09/24/23 09/24/23 Range/Units 06:17 06:17 RBC 3.53 L (4.40-5.60) X 10*6/uL Hgb 10.5 L (13.0-17.0) g/dL Hct 34.1 L (39.6-50.0) % MCHC 30.8 L (32.0-37.0) g/dL Plt Count 137 L (140-440) X 10*3/uL Lymphocytes # 0.55 L (0.90-5.00) X 10*3/uL PT 36.4 H (10.0-12.5) sec INR 3.7 H (<1.2) Microbiology - Last 24 Hours (Table) 09/19/23 14:16 Legionella Culture - Preliminary Sputum
[2023-09-24] MEDS: SODIUM CHLORIDE 0.9% 1,000 ML IV SCH (15:52)
[2023-09-24] MEDS ORDERED: WARFARIN 0.5 MG TAB PO ONE (18:00)
[2023-09-24] MEDS ORDERED: WARFARIN 1 MG TAB PO ONE (18:00)
[2023-09-25 06:19] LABS: INR 3.2 (<1.2); Prothrombin Time 31.5 sec (10.0-12.5)
[2023-09-25] MEDS: ALBUTEROL NEBULIZED 2.5 MG/3 ML INHALATION SCH ×2 (07:25→11:32)
[2023-09-25] MEDS: LACTOBACILLUS ACIDOPHILUS/PECT 1 EACH CAPSULE PO SCH (07:55)
[2023-09-25] MEDS: METOPROLOL TARTRATE 25 MG TAB PO SCH (07:55)
[2023-09-25] MEDS: FLUTICASONE 50MCG/SPRAY NASAL 16GM EA NOSTRIL SCH (07:55)
[2023-09-25] MEDS: guaiFENesin 600 MG TABLET.ER PO SCH (07:55)
[2023-09-25] MEDS: SPIRONOLACTONE 25 MG TAB PO SCH (07:55)
[2023-09-25] MEDS: ATORVASTATIN 40 MG TAB PO SCH (07:55)
[2023-09-25] MEDS: CHOLESTYRAMINE (WITH SUGAR) 4 GM PACKET PO SCH (07:55)
[2023-09-25] MEDS: amLODIPine 5 MG TAB PO SCH (07:55)
[2023-09-25 08:48] LABS: MCH 30.2 pg (27.0-32.0); MCHC 31.4 g/dL (32.0-37.0); MCV 96.2 FL (80.0-97.0); Mean Platelet Volume 11.4 FL (9.5-12.2); NRBC Per 100 WBC 0 X 10*3/uL (0.00-0.01); Platelet Count 175 X 10*3/uL (140-440); RBC 3.64 X 10*6/uL (4.40-5.60); RDW 13.8 % (11.5-14.5)
[2023-09-25 11:37] LABS: ALT 7 U/L (10-49); AST 24 U/L (14-35); Albumin 3.4 g/dL (3.8-4.9); Albumin/Globulin Ratio 1.21 Ratio (1.60-3.17); Alkaline Phosphatase 81 U/L (41-126); BUN/Creat Ratio 20.42 Ratio (12.00-20.00); Blood Urea Nitrogen 24.5 mg/dL (9.0-27.0); Calcium 8.7 mg/dL (8.7-10.3); Carbon Dioxide 16.9 mmol/L (21.6-31.8); Chloride 109 mmol/L (96-109); Globulin 2.8 g/dL (1.6-3.3); Glucose 92 mg/dL (70-110); Potassium 4.9 mmol/L (3.5-5.5); Sodium 139 mmol/L (135-145); Total Bilirubin 0.3 mg/dL (0.3-1.2); Total Protein 6.2 g/dL (6.2-8.2)
--- NOTE | 2023-09-25 13:07 | P.DS ---
Providers Date of admission: 09/20/23 07:59 Expected date of discharge: 09/25/23 Attending physician: Anshu Rodney MD Consults: 09/19/23 13:55 Consult Physician Urgent Consulting Provider: [facility] Consult Reason/Comments: elevated trop Do you want consulting provider notified?: Yes 09/19/23 13:56 Consult Physician Urgent Consulting Provider: Adriana Lam Consult Reason/Comments: PNA Do you want consulting provider notified?: Yes Primary care physician: Coleman Nugent Hospital Course: Discharge diagnoses; Bacterial pneumonia NSTEMI Shortness of breath Hyperlipidemia Hypertension History of aortic valve replacement Paroxysmal atrial fibrillation Atrial tachycardia Permanent pacemaker implantation Hospital course; patient is 83-year-old gentleman with past medical history significant for paroxysmal atrial fibrillation , 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 Patient stated that was all right 3 days ago he started complaining of cough which is productive. Patient also complaining of increasing fatigue. Denied any chest pain. There was no shortness of breath. No complain of palpitations. Denies any swelling of feet. no nausea, vomiting abdominal pain. Because of the symptoms, patient to the ER Initial lab work done in the ER showed WBC 6.5, hemoglobin 12.6, platelet count 122, sodium 137, potassium 5, BUN 56, creatinine 1.68, troponin 0.099 UA negative for infection EKG done in the ER showed ventricular paced rhythm, no ST segment elevation. Chest x-ray done in the ER showed mild cardiomegaly and interstitial changes possible mild pulmonary vascular congestion, possible pneumonia right lung base Patient admitted to medicine service 09/20. Patient seen and examined. Denies any cough or shortness of breath. States he is doing much better compared to yesterday 09/21. Patient seen and examined. Patient is not requiring any oxygen, patient is afebrile. INR is 2.9. States breathing has improved. 09/22. Patient seen and examined. INR this morning is 4.2, will hold Coumadin for today. States he still feeling weak 09/23. Patient seen and examined. States weakness is improving. Short of breath on exertion. No shortness of breath at rest. Complaining of diarrhea. INR this morning is 4.8 09/24. Patient seen and examined. INR has improved, today is 3.7, continue to hold Coumadin. Does not require any room air. Patient is weak requiring a ssistance. No fever or chills. Still complaining of diarrhea, had 2 stools overnight 09/25. Patient seen and examined. INR this morning is 3.2. Discussed with ID, they recommended starting patient on Keflex for 1 week. Patient told to hold Coumadin for one more day PHYSICAL EXAMINATION: GENERAL: The patient is alert and oriented x3, not in any acute distress. Well developed, well nourished. HEENT: Pupils are round and equally reacting to light. EOMI. No scleral icterus. No conjunctival pallor. Normocephalic, atraumatic. No pharyngeal erythema. No thyromegaly. CARDIOVASCULAR: S1 and S2 present. No murmurs, rubs, or gallops. PULMONARY: Diminished breath sounds at the bases bilaterally, no wheezing or crackles. ABDOMEN: Soft, nontender, nondistended, normoactive bowel sounds. No palpable organomegaly. MUSCULOSKELETAL: No joint swelling or deformity. EXTREMITIES: No cyanosis, clubbing, or pedal edema. NEUROLOGICAL: Gross neurological examination did not reveal any focal deficits. SKIN: No rashes. Dictation was produced using [employer] dictation software. please excuse any grammatical, word or spelling errors. Patient Condition at Discharge: Good Plan - Discharge Summary Discharge Rx Participant: Yes New Discharge Prescriptions: New cephALEXin [Keflex] 750 mg PO Q12HR 7 Days #14 cap Cholestyramine (with Sugar) [Questran Packet] 4 gm PO TID BETWEEN MEALS 7 Days #21 packet Continue amLODIPine [Norvasc] 5 mg PO BID Warfarin [Coumadin] 5 mg PO DAILY Metoprolol Tartrate [Lopressor] 25 mg PO BID Atorvastatin [Lipitor] 40 mg PO DAILY Loratadine [Claritin] 10 mg PO DAILY Furosemide [Lasix] 20 mg PO BID Spironolactone [Aldactone] 25 mg PO DAILY 30 Days #30 tab Fluticasone Nasal [place] [Flonase Nasal [place]] 2 spray EA NOSTRIL DAILY Discharge Medication List amLODIPine [Norvasc] 5 mg PO BID 05/14/19 [History] Warfarin [Coumadin] 5 mg PO DAILY 04/12/21 [History] Metoprolol Tartrate [Lopressor] 25 mg PO BID 06/11/21 [History] Spironolactone [Aldactone] 25 mg PO DAILY 30 Days #30 tab 07/01/21 [Rx] Atorvastatin [Lipitor] 40 mg PO DAILY 09/19/23 [History] Fluticasone Nasal [place] [Flonase Nasal [place]] 2 spray EA NOSTRIL DAILY 09/19/23 [History] Furosemide [Lasix] 20 mg PO BID 09/19/23 [History] Loratadine [Claritin] 10 mg PO DAILY 09/19/23 [History] Cholestyramine (with Sugar) [Questran Packet] 4 gm PO TID BETWEEN MEALS 7 Days #21 packet 09/25/23 [Rx] cephALEXin [Keflex] 750 mg PO Q12HR 7 Days #14 cap 09/25/23 [Rx] Follow up Appointment(s)/Referral(s): Coleman Nugent MD [Primary Care Provider] - 1-2 days Care,[facility] [NON-STAFF] - 1 Week Activity/Diet/Wound Care/Special Instructions: Hold Coumadin for today and tomorrow, starting Coumadin from 09/27 Discharge Disposition: HOME WITH HOME HEALTH SERVICES
[2023-09-25 15:00] VITALS: BP 137/65; PULSE 63; RESP 15; TEMP 98.3
[2023-09-25] MEDS ORDERED: WARFARIN 3 MG TAB PO ONE (18:00)
--- NOTE | 2023-09-26 19:33 | CDI ---
Documentation Clarification Form Date: 09/26/2023 07:13:48 PM From: Kristen Whitaker Phone: Admit Date: 09/20/2023 07:59:00 AM Patient Name: Pete Mckinley Visit Number: [id number] Discharge Date: 09/25/2023 02:48:00 PM ATTENTION: The Clinical Documentation Specialists (CDI) and [facility] Coding Staff appreciate your assistance in clarifying documentation. Please respond to the clarification below the line at the bottom and electronically sign. The CDI & [facility] Coding staff will review the response and follow-up if needed. Please note: Queries are made part of the Legal Health Record. If you have any questions, please contact the author of this message via ITS. Dr. Satnam Walker Your patient has the documented diagnosis of unspecified CHF History of Present Illness. Additional information regarding the type of CHF is requested. History/Risk Factors: 83yo M, NSTEMI, MSSA PNA, perm A Fib, HTN, HLD, Hx AV replacement, PPM, PVD Clinical Indicators: VS/Pulse OX: 96-98 Echocardiogram Results: Technically very difficultstudyfor interpretation. Normal LV systolic function. ModerateMS. Normally functioning mechanical prosthesis in aortic position Chest X Ray: Mildcardiomegalywith interstitial changes,possiblemild pulmonary vascular congestion. Unable toexclude developinginfiltrate/pneumoniaat the right midlung. Treatment: monitored In your professional opinion, can you please clarify the type of CHF if known? [ ] Chronic Systolic Heart Failure (reduced EF) [ x ] Chronic Diastolic Heart Failure (preserved EF) [ ] Chronic Systolic & Diastolic Heart Failure [ ] Other, please specify [ ] Unable to determine (Template Last Revised: November 2020) MTDD
--- NOTE | 2023-10-01 16:21 | P.PN ---
Subjective Progress Note Date: 09/24/23 Principal diagnosis: Reason for follow-up is pneumonia Patient is a 83-year-old male with a past medical history significant for COPD hyperlipidemia hypertension osteoarthritis pneumonia history of prostate cancer presenting to the [facility] ER for evaluation of generalized fatigue increasing shortness of breath cough and has been diagnosed with pneumonia. On today's evaluation that is 09/24/2023, the patient denies any fever or any chills, the patient is breathing comfortably on room air without the need for supplemental oxygen, patient denies chest pain shortness of breath and no significant cough or sputum production, patient denies Abdominal pain, no nausea/vomiting , the patient complaining of some diarrhea Patient did have a white count of 6.70, creatinine is 1.24 as of yesterday sputum with MSSA. Objective - Vital Signs Vital signs: Vital Signs Temp 97.9 F 09/24/23 00:52 Pulse 62 09/24/23 00:52 Resp 20 09/24/23 00:52 BP 151/76 09/24/23 00:52 Pulse Ox 98 09/24/23 00:52 FiO2 Intake & Output 09/23/23 09/24/23 09/24/23 18:59 06:59 18:59 Intake Total 680 Output Total 825 500 Balance -145 -500 Intake: Intake, IV Titration 100 Amount ceFAZolin 2 gm In Sodium 100 Chloride 0.9% 50 ml @ 100 mls/hr IVPB Q8HR [facility] Rx# :[id number] Oral 580 Output: Urine 825 500 Other: Voiding Method Urinal Urinal # Voids 3 # Bowel Movements 1 3 - Exam GENERAL DESCRIPTION: An elderly male lying in bed in no distress RESPIRATORY SYSTEM: Unlabored breathing , decreased breath sounds at the base HEART: S1 S2 regular rate and rhythm , ABDOMEN: Soft , no tenderness EXTREMITIES: No edema feet - Labs CBC & Chem 7: 09/25/23 05:31 09/25/23 05:31 Labs: Abnormal Lab Results - Last 24 Hours (Table) 09/23/23 09/23/23 09/23/23 Range/Units 08:16 08:16 08:16 RBC 3.48 L (4.30-5.90) m/uL Hgb 10.6 L (13.0-17.5) gm/dL Hct 33.3 L (39.0-53.0) % Plt Count 120 L (150-450) k/uL PT 46.5 H (10.0-12.5) sec INR 4.8 H (<1.2) Chloride 112 H (98-107) mmol/L BUN 31 H (9-20) mg/dL Glucose 106 H (74-99) mg/dL Calcium 8.3 L (8.4-10.2) mg/dL Albumin 3.1 L (3.5-5.0) g/dL 09/24/23 Range/Units 06:17 RBC (4.30-5.90) m/uL Hgb (13.0-17.5) gm/dL Hct (39.0-53.0) % Plt Count (150-450) k/uL PT 36.4 H (10.0-12.5) sec INR 3.7 H (<1.2) Chloride (98-107) mmol/L BUN (9-20) mg/dL Glucose (74-99) mg/dL Calcium (8.4-10.2) mg/dL Albumin (3.5-5.0) g/dL Microbiology - Last 24 Hours (Table) 09/19/23 14:16 Legionella Culture - Preliminary Sputum Assessment and Plan (1) Pneumonia Status: Acute Code(s): J18.9 - PNEUMONIA, UNSPECIFIED ORGANISM SNOMED Code(s): 330406685 Plan: 1patient presented to hospital with congested cough with greenish sputum production in this patient with abnormal chest x-ray suggestive of right midlung developing infiltrate/pneumonia likely community-acquired pneumonia 2-we will try to obtain a sputum for Gram stain and culture , CRP is 2.5 and a procalcitonin level is 0.22 3patient to continue with the cefazolin 2 g every 8 hours for underlying MSSA pneumonia while inpatient 4patient with diarrhea more likely antibiotic associated, stool for C. diff negative continue with Questran for symptomatic relief Dictation was produced using [employer] dictation software. please excuse any grammatical, word or spelling errors. Time with Patient: Less than 30
--- NOTE | 2023-10-01 16:22 | P.PN ---
Subjective Progress Note Date: 09/25/23 Principal diagnosis: Reason for follow-up is pneumonia Patient is a 83-year-old male with a past medical history significant for COPD hyperlipidemia hypertension osteoarthritis pneumonia history of prostate cancer presenting to the [facility] ER for evaluation of generalized fatigue increasing shortness of breath cough and has been diagnosed with pneumonia. On today's evaluation that is 09/25/2023, the patient remains to be afebrile, the patient is breathing comfortably on room air and denies any shortness of breath, the patient denies any chest pain, the patient cough is decreased intensity and minimal sputum production, patient denies nausea/vomiting or abdominal pain, patient diarrhea has slowed down Patient did have a white count of 7.80, creatinine is 1.2 sputum with MSSA. Stool for C. diff negative Objective - Vital Signs Vital signs: Vital Signs Temp 99.4 F 09/25/23 07:01 Pulse 57 L 09/25/23 07:01 Resp 17 09/25/23 07:01 BP 148/64 09/25/23 07:01 Pulse Ox 99 09/25/23 07:01 FiO2 Intake & Output 09/24/23 09/25/23 09/25/23 18:59 06:59 18:59 Intake Total 1080 Output Total 400 Balance 1080 -400 Intake: Oral 1080 Output: Urine 400 Other: Voiding Method Bedside Commode Urinal Urinal # Voids 6 2 # Bowel Movements 3 - Exam GENERAL DESCRIPTION: An elderly male lying in bed in no distress RESPIRATORY SYSTEM: Unlabored breathing , decreased breath sounds at the base HEART: S1 S2 regular rate and rhythm , ABDOMEN: Soft , no tenderness EXTREMITIES: No edema feet - Labs CBC & Chem 7: 09/25/23 05:31 09/25/23 05:31 Labs: Abnormal Lab Results - Last 24 Hours (Table) 09/25/23 09/25/23 09/25/23 Range/Units 05:31 05:31 05:31 RBC 3.64 L (4.40-5.60) X 10*6/uL Hgb 11.0 L (13.0-17.0) g/dL Hct 35.0 L (39.6-50.0) % MCHC 31.4 L (32.0-37.0) g/dL PT 31.5 H (10.0-12.5) sec INR 3.2 H (<1.2) Carbon Dioxide 16.9 L (21.6-31.8) mmol/L Anion Gap 13.10 H (4.00-12.00) mmol/L BUN/Creatinine Ratio 20.42 H (12.00-20.00) Ratio ALT 7 L (10-49) U/L Albumin 3.4 L (3.8-4.9) g/dL Albumin/Globulin Ratio 1.21 L (1.60-3.17) Ratio Microbiology - Last 24 Hours (Table) 09/19/23 14:10 Blood Culture - Final Blood 09/19/23 14:16 Blood Culture - Final Blood Assessment and Plan (1) Pneumonia Status: Acute Code(s): J18.9 - PNEUMONIA, UNSPECIFIED ORGANISM SNOMED Cod e(s): 718533336 Plan: 1patient presented to hospital with congested cough with greenish sputum production in this patient with abnormal chest x-ray suggestive of right midlung developing infiltrate/pneumonia likely community-acquired pneumonia 2-we will try to obtain a sputum for Gram stain and culture , CRP is 2.5 and a procalcitonin level is 0.22 3patient to continue with the cefazolin 2 g every 8 hours for underlying MSSA pneumonia plan is to finish therapy with oral Keflex 7 days discussed with the admitting team. 4patient with diarrhea more likely antibiotic associated, stool for C. diff is negative plan is to continue with Questran for symptomatic relief also encouraged to increase his probiotic and yogurt intake Dictation was produced using [employer] dictation software. please excuse any grammatical, word or spelling errors. Time with Patient: Less than 30
== END 2023-09-25 14:48 | disposition home health service (06) | DRG 177 ==
LOC: EC 09:54 → 3SCARD 13:40 → OBSVTOIN 09-20 07:59 → 3SCARD 09-20 10:07 → 4SSUR 09-23 15:07
PROVIDERS: ADMIT Internal Medicine; ATTEND Internal Medicine
DX: J15.211 Pneumonia due to Methicillin susceptible Staphylococcus aureus (principal); I21.4 Non-ST elevation (NSTEMI) myocardial infarction; I47.19 Other supraventricular tachycardia; I50.32 Chronic diastolic (congestive) heart failure; I48.21 Permanent atrial fibrillation; I11.0 Hypertensive heart disease with heart failure; I73.9 Peripheral vascular disease, unspecified; I05.0 Rheumatic mitral stenosis; E03.9 Hypothyroidism, unspecified; R19.7 Diarrhea, unspecified; E78.5 Hyperlipidemia, unspecified; R35.0 Frequency of micturition; M19.90 Unspecified osteoarthritis, unspecified site; Z66 Do not resuscitate; Z95.3 Presence of xenogenic heart valve; Z85.46 Personal history of malignant neoplasm of prostate; Z79.899 Other long term (current) drug therapy; Z79.01 Long term (current) use of anticoagulants; Z79.51 Long term (current) use of inhaled steroids; Z88.8 Allergy status to other drugs, medicaments and biological substances; Z87.891 Personal history of nicotine dependence; Z95.0 Presence of cardiac pacemaker
CPT/HCPCS: 36415; 71046; 80053; 81001; 83605; 84145; 84484; 85025; 85027; 85610; 85730; 86140; 87040; 87070; 87077; 87186; 87205; 87449; 87493; 93005; 93306; 94640; 96365; 96366; 96367; 96375; 99285

== ENCOUNTER 2024-06-21 13:10 | Inpatient (IN) | payer MEDICARE ==
[2024-06-21] MEDS ORDERED: SODIUM ZIRCONIUM CYCLOSILICATE 10 GM PACKET ONE (13:40)
[2024-06-21] MEDS ORDERED: DEXTROSE 50% SYRINGE 50 ML IVP ONE (13:41)
[2024-06-21] MEDS ORDERED: SODIUM BICARB 8.4% 50 ML SYR (1 MEQ/ML) ONE (13:42)
[2024-06-21] MEDS ORDERED: CALCIUM GLUCONATE IN NACL 100 ML IVPB ONE (13:42)
[2024-06-21] MEDS ORDERED: INSULIN REGULAR 100 UNIT/ML VIAL (IV) ONE (13:43)
[2024-06-21] MEDS ORDERED: CALCIUM GLUCONATE IN NACL 1 GM/100 ML IVPB ONE (15:01)
[2024-06-21] MEDS ORDERED: WARFARIN 7.5 MG TAB ONE (18:00)
[2024-06-21] MEDS ORDERED: METOPROLOL TARTRATE 50 MG TAB ONE (20:50)
[2024-06-21] MEDS ORDERED: amLODIPine 5 MG TAB ONE (20:50)
[2024-06-22] MEDS ORDERED: IPRATROPIUM 0.5 MG/2.5 ML NEBU INHALATION ONE (08:16)
[2024-06-22] MEDS ORDERED: amLODIPine 5 MG TAB ONE (08:34)
[2024-06-22] MEDS ORDERED: METOPROLOL TARTRATE 50 MG TAB ONE (08:34)
[2024-06-22] MEDS ORDERED: AMIODARONE 200 MG TAB ONE (08:35)
[2024-06-22] MEDS ORDERED: LORATADINE 10 MG TAB ONE (08:36)
[2024-06-22] MEDS ORDERED: ATORVASTATIN 40 MG TAB ONE (08:37)
[2024-06-22] MEDS ORDERED: CHOLECALCIFEROL 25 MCG (1000 IU) TABLET ONE (08:38)
[2024-06-22] MEDS ORDERED: WARFARIN 7.5 MG TAB ONE (23:59)
[2024-06-22] MEDS ORDERED: NYSTATIN 100,000 UNIT/GM POWD 15 GM TOPICAL ONE (23:59)
[2024-06-23] MEDS ORDERED: ONDANSETRON 4 MG/2 ML VIAL IVP PRN
[2024-06-23] MEDS ORDERED: NALOXONE 0.4 MG/ML 1 ML VIAL IVP PRN
[2024-06-23] MEDS ORDERED: MENTHOL-ZINC OXIDE OINT 113 GM TUBE TOPICAL PRN
[2024-06-23] MEDS ORDERED: SODIUM CHLORIDE 0.9% 1,000 ML IV SCH
[2024-06-23] MEDS: SODIUM CHLORIDE 0.9% 1,000 ML IV SCH (04:46)
[2024-06-23 05:46] LABS: Basophils % (A) 1 %; Eosinophils # (A) 0.1 k/uL (0-0.7); Eosinophils % (A) 1 %; HCT 33.8 % (39.0-53.0); HGB 10.8 gm/dL (13.0-17.5); Hypochromasia Moderate; Lymphocytes # (A) 0.5 k/uL (1.0-4.8); Lymphocytes % (A) 8 %; MCH 30.2 pg (25.0-35.0); MCV 94.4 fL (80.0-100.0); Monocytes # (A) 0.5 k/uL (0-1.0); Monocytes % (A) 7 %; Neutrophils # (A) 5.5 k/uL (1.3-7.7); Neutrophils % (A) 82 %; Platelet Count 108 k/uL (150-450); RBC 3.58 m/uL (4.30-5.90); WBC 6.7 k/uL (3.8-10.6)
[2024-06-23 06:07] LABS: INR 1.7 (<1.2); Prothrombin Time 16.9 sec (10.0-12.5)
[2024-06-23 06:21] LABS: African American GFR (CKD) 42 (>60 ml/min/1.73 sqM); Anion Gap 5 mmol/L; Blood Urea Nitrogen 37 mg/dL (9-20); Calcium 8.4 mg/dL (8.4-10.2); Carbon Dioxide 21 mmol/L (22-30); Chloride 109 mmol/L (98-107); Glucose 90 mg/dL (74-99); Non-African American GFR(CKD) 36 (>60 ml/min/1.73 sqM); Potassium 4.4 mmol/L (3.5-5.1); Sodium 135 mmol/L (137-145)
[2024-06-23] MEDS: LORATADINE 10 MG TAB PO SCH (08:30)
[2024-06-23] MEDS: ATORVASTATIN 40 MG TAB PO SCH (08:30)
[2024-06-23] MEDS: AMIODARONE 200 MG TAB PO SCH (08:30)
[2024-06-23] MEDS: CHOLECALCIFEROL 25 MCG (1000 IU) TABLET PO SCH (08:30)
[2024-06-23] MEDS: amLODIPine 5 MG TAB PO SCH (08:30)
[2024-06-23] MEDS: METOPROLOL TARTRATE 50 MG TAB PO SCH (08:30)
[2024-06-23] MEDS: NYSTATIN 100,000 UNIT/GM POWD 15 GM TOPICAL SCH (08:31)
[2024-06-23] MEDS: MENTHOL-ZINC OXIDE OINT 113 GM TUBE TOPICAL SCH (08:31)
[2024-06-23] MEDS: SYMBICORT 160-4.5 MCG INHALER INHALATION SCH (08:36)
[2024-06-23] MEDS: IPRATROPIUM 0.5 MG/2.5 ML NEBU INHALATION SCH (08:36)
[2024-06-23] MEDS: FLUTICASONE NASAL 50MCG/SPRAY 16GM BTL NASAL SCH (10:50)
--- NOTE | 2024-06-23 11:41 | P.PN ---
Subjective Patient is seen in follow-up for acute kidney injury. Admits to good urine output. Currently off IV fluids. No vomiting or diarrhea. Vital signs are stable. General: No acute distress. HEENT: Head exam is unremarkable. On nasal cannula. LUNGS: No audible rhonchi or wheezes. HEART: Rate and Rhythm are regular. ABDOMEN: Nontender. EXTREMITITES: No edema. Objective - Vital Signs Vital signs: Vital Signs Temp 98.1 F 06/23/24 07:48 Pulse 76 06/23/24 08:46 Resp 18 06/23/24 07:48 BP 161/69 06/23/24 07:48 Pulse Ox 93 L 06/23/24 08:36 FiO2 21 06/23/24 08:36 Intake & Output 06/22/24 06/23/24 06/23/24 18:59 06:59 18:59 Output Total 400 100 Balance -400 -100 Weight 86.4 kg Output: Urine 400 100 Other: Voiding Method Urinal Diaper - Labs CBC & Chem 7: 06/23/24 04:29 06/23/24 04:29 Labs: Abnormal Lab Results - Last 24 Hours (Table) 06/23/24 06/23/24 06/23/24 Range/Units 04:29 04:29 04:29 RBC 3.58 L (4.30-5.90) m/uL Hgb 10.8 L (13.0-17.5) gm/dL Hct 33.8 L (39.0-53.0) % Plt Count 108 L (150-450) k/uL Lymphocytes # 0.5 L (1.0-4.8) k/uL PT 16.9 H (10.0-12.5) sec INR 1.7 H (<1.2) Sodium 135 L (137-145) mmol/L Chloride 109 H (98-107) mmol/L Carbon Dioxide 21 L (22-30) mmol/L BUN 37 H (9-20) mg/dL Creatinine 1.71 H (0.66-1.25) mg/dL Assessment and Plan Plan: Assessment: 1. Acute kidney injury secondary to ATN secondary to hypovolemia. Creatinine 2.1 on admission and is stable at 1.7 today. UA benign. Limited assessment on kidney ultrasound but no hydronephrosis noted. Creatinine 1.2 dated September 25, 2023. 2. Hyperkalemia secondary to acute kidney injury on Aldactone. Improved. 3. Metabolic acidosis secondary to acute kidney injury and IV fluids. 4. Benign hypertension. Plan: Maintain off IV fluids at this time. Encouraged oral intake. Check chest x-ray. Avoid nephrotoxins. Continue to monitor renal function and urine output.
--- NOTE | 2024-06-23 12:35 | XR ---
EXAMINATION TYPE: XR chest 1V DATE OF EXAM: 06/23/2024 COMPARISON: 09/20/2023, 06/21/2024 HISTORY: 84 year-old male shortness of breath TECHNIQUE: Single frontal view of the chest is obtained. FINDINGS: Median sternotomy wires. Heart mildly enlarged. Diffuse interstitial density. Possible tra ce right effusion. Overall densities are similar. Left anterior chest wall pacemaker generator with r ight atrial and right ventricular leads. IMPRESSION: Similar CHF with pulmonary vascular congestion. Possible trace right effusion now.
--- NOTE | 2024-06-23 13:26 | P.PN ---
Subjective addendum: Please note Electronic system was down up to 06/22/2024 and everything was documented on paper chart. This is a pleasant 84 years old male with multiple medical problems. He was admitted on 06/21 for increased frequency of urination with some dysuria. Patient has been dehydrated with evidence of acute kidney injury and hyperkalemia on admission. Patient is followed closely by nephrology team and is treated with IV fluid. Lasix was placed on hold. Creatinine improved down from 1.96 on admission to 1.7 yesterday. Potassium was also better at 4.4 today.. Hemoglobin 10.8. INR 1.7 Chest x-ray: Similar CHF with pulmonary vascular congestion. Possible trace right effusion now. Patient hemodynamically stable Objective - Vital Signs Vital signs: Vital Signs Temp 98.1 F 06/23/24 07:48 Pulse 64 06/23/24 12:03 Resp 18 06/23/24 07:48 BP 161/69 06/23/24 07:48 Pulse Ox 93 L 06/23/24 08:36 FiO2 21 06/23/24 08:36 Intake & Output 06/22/24 06/23/24 06/23/24 18:59 06:59 18:59 Output Total 400 100 Balance -400 -100 Weight 86.4 kg Output: Urine 400 100 Other: Voiding Method Urinal Diaper - Exam GENERAL: The patient is alert and oriented x3, not in any acute distress. Well developed, well nourished. HEENT: Pupils are round and equally reacting to light. EOMI. No scleral icterus. No conjunctival pallor. Normocephalic, atraumatic. No pharyngeal erythema. No t hyromegaly. CARDIOVASCULAR: S1 and S2 present. No murmurs, rubs, or gallops. PULMONARY: Chest is clear to auscultation, no wheezing , no crackles. ABDOMEN: Soft, nontender, nondistended, normoactive bowel sounds. No palpable organomegaly. MUSCULOSKELETAL: No joint swelling or deformity. EXTREMITIES: No cyanosis, clubbing, or pedal edema. NEUROLOGICAL: Gross neurological examination did not reveal any focal deficits. SKIN: No rashes. no petechiae. - Labs CBC & Chem 7: 06/23/24 04:29 06/23/24 04:29 Labs: Abnormal Lab Results - Last 24 Hours (Table) 06/23/24 06/23/24 06/23/24 Range/Units 04:29 04:29 04:29 RBC 3.58 L (4.30-5.90) m/uL Hgb 10.8 L (13.0-17.5) gm/dL Hct 33.8 L (39.0-53.0) % Plt Count 108 L (150-450) k/uL Lymphocytes # 0.5 L (1.0-4.8) k/uL PT 16.9 H (10.0-12.5) sec INR 1.7 H (<1.2) Sodium 135 L (137-145) mmol/L Chloride 109 H (98-107) mmol/L Carbon Dioxide 21 L (22-30) mmol/L BUN 37 H (9-20) mg/dL Creatinine 1.71 H (0.66-1.25) mg/dL Assessment and Plan Assessment: Acute kidney injury and hyperkalemia, improved chronic kidney disease stage III CHF Artificial aortic valve on Coumadin at home COPD, no acute process Hypertension Hyperlipidemia Osteoarthritis Plan: Keep of IV fluid Lasix on hold Monitor creatinine Nephrology consult on the team GI and DVT prophylaxis
[2024-06-23] MEDS: WARFARIN 7.5 MG TAB PO ONE (17:34)
[2024-06-23] MEDS: ACETAMINOPHEN TAB 325 MG TAB PO PRN (19:27)
[2024-06-23] MEDS: HYDROcodone/APAP 5-325MG 1 EACH TAB PO PRN (19:29)
--- NOTE | 2024-06-23 21:10 | XR ---
EXAMINATION TYPE: XR chest 1V portable DATE OF EXAM: 06/23/2024 9:04 PM CLINICAL INDICATION: Male, 84 years old with history of fever; COMPARISON: Chest radiographs from 06/23/2024 TECHNIQUE: XR chest 1V portable Frontal view of the chest. FINDINGS: Lungs/Pleura: There is no evidence of pleural effusion, focal consolidation, or pneumothorax. Pulmonary vascularity: Pulmonary vascular congestion. Heart/mediastinum: Cardiomediastinal silhouette is enlarged. Atherosclerotic calcifications are seen in the aorta. Two lead cardiac conduction device overlying the left hemithorax with lead tips projec ting over the right ventricle and right atrium. Musculoskeletal: No acute osseous pathology. Midline sternotomy wires are noted. Other findings: None Lines/Tubes: IMPRESSION: Cardiomegaly and mild pulmonary vascular congestion. Correlate with BNP for congestive heart failure.
[2024-06-24 03:29] LABS: INR 2.3 (<1.2); Prothrombin Time 22.9 sec (10.0-12.5)
[2024-06-24 04:23] LABS: Amorphous Sediment,Urine Rare /hpf; Appearance,Urine Cloudy (Clear); Bacteria,Urine Rare /hpf; Bilirubin,Urine Negative (Negative); Blood,Urine Moderate (Negative); Color,Urine Yellow; Glucose,Urine (UA) Negative (Negative); Ketones,Urine Negative (Negative); Leukocyte Esterase,Urine Negative (Negative); Mucus,Urine Rare /hpf; Nitrite,Urine Negative (Negative); PH, Urine 5.5 (5.0-8.0); Protein,Urine 1+ (Negative); RBC,Urine 156 /hpf (0-5); Specific Gravity,Urine 1.017 (1.001-1.035); Urobilinogen,Urine <2.0 mg/dL (<2.0); WBC,Urine 1 /hpf (0-5)
[2024-06-24 09:08] LABS: HCT 35.7 % (39.6-50.0); HGB 10.9 g/dL (13.0-17.0); MCH 29.2 pg (27.0-32.0); MCHC 30.5 g/dL (32.0-37.0); MCV 95.7 FL (80.0-97.0); Mean Platelet Volume 11.8 FL (9.5-12.2); NRBC Per 100 WBC 0 X 10*3/uL (0.00-0.01); Platelet Count 110 X 10*3/uL (140-440); RBC 3.73 X 10*6/uL (4.40-5.60); RDW 14.6 % (11.5-14.5); WBC 9.06 X 10*3/uL (4.50-10.00)
[2024-06-24 09:18] LABS: BUN/Creat Ratio 19.33 Ratio (12.00-20.00); Blood Urea Nitrogen 34.8 mg/dL (9.0-27.0); Calcium 8.4 mg/dL (8.7-10.3); Carbon Dioxide 18.8 mmol/L (21.6-31.8); Chloride 103 mmol/L (96-109); Glucose 108 mg/dL (70-110); Magnesium 2.1 mg/dL (1.5-2.4); Potassium 5.3 mmol/L (3.5-5.5); Sodium 135 mmol/L (135-145)
[2024-06-24 10:35] LABS: Basophils # (A) 0.06 X 10*3/uL (0.00-0.10); Basophils % (A) 0.7 %; Eosinophils # (A) 0.02 X 10*3/uL (0.04-0.35); Eosinophils % (A) 0.2 %; Lymphocytes # (A) 0.97 X 10*3/uL (0.90-5.00); Lymphocytes % (A) 10.7 %; Monocytes # (A) 1.54 X 10*3/uL (0.20-1.00); Neutrophils # (A) 6.43 X 10*3/uL (1.80-7.70)
--- NOTE | 2024-06-24 10:58 | P.PN ---
Subjective Patient is seen in follow-up for acute kidney injury. Admits to good urine output. Currently off IV fluids. No vomiting or diarrhea. No active c omplaints. Vital signs are stable. General: No acute distress. HEENT: Head exam is unremarkable. LUNGS: No audible rhonchi or wheezes. HEART: Rate and Rhythm are regular. ABDOMEN: Nontender. EXTREMITITES: No edema. Objective - Vital Signs Vital signs: Vital Signs Temp 99.4 F 06/24/24 10:12 Pulse 60 06/24/24 07:35 Resp 16 06/24/24 08:00 BP 117/57 06/24/24 07:35 Pulse Ox 98 06/24/24 07:45 FiO2 21 06/23/24 08:36 Intake & Output 06/23/24 06/24/24 06/24/24 18:59 06:59 18:59 Intake Total 2100 Output Total 400 300 75 Balance 1700 -300 -75 Intake: Oral 2100 Output: Urine 400 300 75 Other: Voiding Method Urinal Urinal Diaper Diaper # Voids 2 # Bowel Movements 1 - Labs CBC & Chem 7: 06/24/24 02:54 06/24/24 02:54 Labs: Abnormal Lab Results - Last 24 Hours (Table) 06/24/24 06/24/24 06/24/24 Range/Units 02:54 02:54 02:54 RBC 3.73 L (4.40-5.60) X 10*6/uL Hgb 10.9 L (13.0-17.0) g/dL Hct 35.7 L (39.6-50.0) % MCHC 30.5 L (32.0-37.0) g/dL RDW 14.6 H (11.5-14.5) % Plt Count 110 L (140-440) X 10*3/uL Monocytes # 1.54 H (0.20-1.00) X 10*3/uL Eosinophils # 0.02 L (0.04-0.35) X 10*3/uL PT 22.9 H (10.0-12.5) sec INR 2.3 H (<1.2) Carbon Dioxide 18.8 L (21.6-31.8) mmol/L Anion Gap 13.20 H (4.00-12.00) mmol/L BUN 34.8 H (9.0-27.0) mg/dL Creatinine 1.8 H (0.6-1.5) mg/dL Est GFR (CKD-EPI) 37 L (>=60) Calcium 8.4 L (8.7-10.3) mg/dL Urine Protein (Negative) Urine Blood (Negative) Urine RBC (0-5) /hpf Amorphous Sediment (None) /hpf Urine Bacteria (None) /hpf Urine Mucus (None) /hpf 06/24/24 Range/Units 03:11 RBC (4.40-5.60) X 10*6/uL Hgb (13.0-17.0) g/dL Hct (39.6-50.0) % MCHC (32.0-37.0) g/dL RDW (11.5-14.5) % Plt Count (140-440) X 10*3/uL Monocytes # (0.20-1.00) X 10*3/uL Eosinophils # (0.04-0.35) X 10*3/uL PT (10.0-12.5) sec INR (<1.2) Carbon Dioxide (21.6-31.8) mmol/L Anion Gap (4.00-12.00) mmol/L BUN (9.0-27.0) mg/dL Creatinine (0.6-1.5) mg/dL Est GFR (CKD-EPI) (>=60) Calcium (8.7-10.3) mg/dL Urine Protein 1+ H (Negative) Urine Blood Moderate H (Negative) Urine RBC 156 H (0-5) /hpf Amorphous Sediment Rare H (None) /hpf Urine Bacteria Rare H (None) /hpf Urine Mucus Rare H (None) /hpf Assessment and Plan Plan: Assessment: 1. Acute kidney injury secondary to ATN secondary to hypovolemia. Creatinine 2.1 on admission and is fairly stable at 1.8 today. UA benign. Limited assessment on kidney ultrasound but no hydronephrosis noted. Creatinine 1.2 dated September 25, 2023. 2. Hyperkalemia secondary to acute kidney injury on Aldactone. Improved. 3. Metabolic acidosis secondary to acute kidney injury and IV fluids. 4. Benign hypertension. Controlled. 5. Volume overload. Plan: Add Lasix 20 mg orally once daily. Add sodium bicarb. Encouraged oral intake. Avoid nephrotoxins. Continue to monitor renal function and urine output. Repeat BMP and magnesium level 2 to 3 days postdischarge. Follow-up outpatient in 1 week.
--- NOTE | 2024-06-24 12:09 | P.PN ---
Subjective Progress Note Date: 06/24/24 This is a pleasant 84 years old male with multiple medical problems. He was admitted on 06/21 for increased frequency of urination with some dysuria. Patient has been dehydrated with evidence of acute kidney injury and hyperkalemia on admission. Patient is followed closely by nephrology team and is treated with IV fluid. Lasix was placed on hold. Creatinine improved down from 1.96 on admission to 1.7 yesterday. Potassium was also better at 4.4 today.. Hemoglobin 10.8. INR 1.7 Chest x-ray: Similar CHF with pulmonary vascular congestion. Possible trace right effusion now. Patient hemodynamically stable /. Patient seen and examined. Blood work done this morning showed WBC 9.06, hemoglobin 10.9, platelet count 110, INR 2.3, sodium 134, potassium 5.3, BUN 34.8, creatinine 1.8. States he feels much better. REVIEW OF SYSTEMS: CONSTITUTIONAL: No fever, no malaise,. CARDIOVASCULAR: No chest pain, no palpitations, no syncope. PULMONARY: No shortness of breath, no cough, GASTROINTESTINAL: No diarrhea, no nausea, no vomiting, no abdominal pain. NEUROLOGICAL: No headaches, no weakness, PHYSICAL EXAMINATION: GENERAL: The patient is alert and oriented x3, not in any acute distress. Well developed, well nourished. HEENT: Pupils are round and equally reacting to light. EOMI. No scleral icterus. No conjunctival pallor. Normocephalic, atraumatic. No pharyngeal erythema. No thyromegaly. CARDIOVASCULAR: S1 and S2 present. No murmurs, rubs, or gallops. PULMONARY: Chest is clear to auscultation, no wheezing or crackles. ABDOMEN: Soft, nontender, nondistended, normoactive bowel sounds. No palpable organomegaly. MUSCULOSKELETAL: No joint swelling or deformity. EXTREMITIES: No cyanosis, clubbing, or pedal edema. NEUROLOGICAL: Gross neurological examination did not reveal any focal deficits. SKIN: No rashes. Assessment and plan Acute kidney injury and hyperkalemia, improved chronic kidney disease stage III CHF Artificial aortic valve on Coumadin at home COPD, no acute process Hypertension Hyperlipidemia Osteoarthritis Monitor vital signs Monitor CBC Monitor CMP Strict I's and O's, daily weights, nephrology added sodium bicarb and Lasix today. PT and OT following Labs and medication were reviewed.. Continue same treatment. Continue with symptomatic treatment. Resume home medication. Monitor labs and vitals. DVT and GI prophylaxis. Further recommendations as per clinical course of the patient Dictation was produced using [employer] dictation software. please excuse any grammatical, word or spelling errors. Objective - Vital Signs Vital signs: Vital Signs Temp 99.4 F 06/24/24 10:12 Pulse 60 06/24/24 07:35 Resp 16 06/24/24 08:00 BP 117/57 06/24/24 07:35 Pulse Ox 98 06/24/24 07:45 FiO2 21 06/23/24 08:36 Intake & Output 06/23/24 06/24/24 06/24/24 18:59 06:59 18:59 Intake Total 2100 Output Total 400 300 75 Balance 1700 -300 -75 Intake: Oral 2100 Output: Urine 400 300 75 Other: Voiding Method Urinal Urinal Diaper Diaper # Voids 2 # Bowel Movements 1 - Labs CBC & Chem 7: 06/24/24 02:54 06/24/24 02:54 Labs: Abnormal Lab Results - Last 24 Hours (Table) 06/24/24 06/24/24 06/24/24 Range/Units 02:54 02:54 02:54 RBC 3.73 L (4.40-5.60) X 10*6/uL Hgb 10.9 L (13.0-17.0) g/dL Hct 35.7 L (39.6-50.0) % MCHC 30.5 L (32.0-37.0) g/dL RDW 14.6 H (11.5-14.5) % Plt Count 110 L (140-440) X 10*3/uL Monocytes # 1.54 H (0.20-1.00) X 10*3/uL Eosinophils # 0.02 L (0.04-0.35) X 10*3/uL PT 22.9 H (10.0-12.5) sec INR 2.3 H (<1.2) Carbon Dioxide 18.8 L (21.6-31.8) mmol/L Anion Gap 13.20 H (4.00-12.00) mmol/L BUN 34.8 H (9.0-27.0) mg/dL Creatinine 1.8 H (0.6-1.5) mg/dL Est GFR (CKD-EPI) 37 L (>=60) Calcium 8.4 L (8.7-10.3) mg/dL Urine Protein (Negative) Urine Blood (Negative) Urine RBC (0-5) /hpf Amorphous Sediment (None) /hpf Urine Bacteria (None) /hpf Urine Mucus (None) /hpf 06/24/24 Range/Units 03:11 RBC (4.40-5.60) X 10*6/uL Hgb (13.0-17.0) g/dL Hct (39.6-50.0) % MCHC (32.0-37.0) g/dL RDW (11.5-14.5) % Plt Count (140-440) X 10*3/uL Monocytes # (0.20-1.00) X 10*3/uL Eosinophils # (0.04-0.35) X 10*3/uL PT (10.0-12.5) sec INR (<1.2) Carbon Dioxide (21.6-31.8) mmol/L Anion Gap (4.00-12.00) mmol/L BUN (9.0-27.0) mg/dL Creatinine (0.6-1.5) mg/dL Est GFR (CKD-EPI) (>=60) Calcium (8.7-10.3) mg/dL Urine Protein 1+ H (Negative) Urine Blood Moderate H (Negative) Urine RBC 156 H (0-5) /hpf Amorphous Sediment Rare H (None) /hpf Urine Bacteria Rare H (None) /hpf Urine Mucus Rare H (None) /hpf
[2024-06-24] MEDS: ACETAMINOPHEN TAB 325 MG TAB ONE ×2 (12:23→12:24)
[2024-06-24] MEDS: METOPROLOL TARTRATE 50 MG TAB ONE ×4 (12:23→13:32)
[2024-06-24] MEDS: HYDROcodone/APAP 5-325MG 1 EACH TAB ONE ×2 (12:23→13:31)
[2024-06-24] MEDS: SODIUM BICARBONATE TAB 650 MG TAB PO SCH (12:27)
[2024-06-24] MEDS: FUROSEMIDE 20 MG TAB PO SCH (12:27)
[2024-06-24 13:31] VITALS: BMI 25.1
[2024-06-24] MEDS: IPRATROPIUM 0.5 MG/2.5 ML NEBU INHALATION ONE (13:31)
[2024-06-24] MEDS: WARFARIN 5 MG TAB PO ONE (17:37)
[2024-06-25 04:11] LABS: INR 3.2 (<1.2); Prothrombin Time 31.3 sec (10.0-12.5)
--- NOTE | 2024-06-25 09:32 | P.CONS ---
History of Present Illness - Reason for Consult Consult date: 06/24/24 Fever Requesting physician: Checo E Sheet - Chief Complaint Urinary frequency and burning x few days - History of Present Illness Patient is a 84-year-old male with a past medical history significant for COPD hypertension hyperlipidemia osteoarthritis prostate disorder patient apparently has been in the hospital for the last few days with initial presentation the hospital with increasing urination and some dysuria patient was noticed to be dehydrated with acute kidney injury patient apparently was initially febrile however patient did spike a fever of 102.8 F last evening that has prompted this consultation as of this morning the patient is afebrile patient denies having any headache or URI symptoms patient denies having any chest pain shortness of breath or cough. Denies any nausea vomiting no abdominal pain or any diarrhea patient did have a white count of 9.06 BUN and creatinine has been mildly elevated urine has been positive, patient did have a negative SARS-CoV-2 RSV and influenza PCR chest x-ray was mostly pulmonary vascular congestion, infectious disease consulted regarding the fever Review of Systems Positive point and negatives has been mentioned in the HPI, complete review of systems was performed and all other systems are negative Past Medical History Past Medical History: Cancer, COPD, Hyperlipidemia, Hypertension, Osteoarthritis (OA), Pneumonia, Prostate Disorder Additional Past Medical History / Comment(s): ARRYTHYTHMIA,AORTIC VALVE REPLACEMENT,PROSTATE CANCER, History of Any Multi-Drug Resistant Organisms: None Reported Past Surgical History: Cardiac Valve Replacement, Pacemaker, Tonsillectomy Additional Past Surgical History / Comment(s): vasectomy. carotid artery. Permanent Pacemaker by Dr Clark Past Anesthesia/Blood Transfusion Reactions: No Reported Reaction Type of Cardiac Device: Permanent Pacemaker Device Placement Date:: 10/30/2020 Past Psychological History: Depression Smoking Status: Former smoker Past Alcohol Use History: None Reported Past Drug Use History: None Reported - Past Family History Mother History Unknown: Yes Family Medical History: Cancer Medications and Allergies Home Medications Medication Instructions Recorded Confirmed Type amLODIPine [Norvasc] 5 mg PO BID 05/14/19 09/19/23 History Warfarin [Coumadin] 5 mg PO DAILY 04/12/21 09/19/23 History Metoprolol Tartrate [Lopressor] 25 mg PO BID 06/11/21 09/19/23 History Spironolactone [Aldactone] 25 mg PO DAILY 30 Days #30 tab 07/01/21 09/19/23 Rx Atorvastatin [Lipitor] 40 mg PO DAILY 09/19/23 09/19/23 History Fluticasone Nasal [place] [Flonase 2 spray EA NOSTRIL DAILY 09/19/23 09/19/23 History Nasal [place]] Furosemide [Lasix] 20 mg PO BID 09/19/23 09/19/23 History Loratadine [Claritin] 10 mg PO DAILY 09/19/23 09/19/23 History Cholestyramine (with Sugar) 4 gm PO TID BETWEEN MEALS 7 Days 09/25/23 Rx [Questran Packet] #21 packet cephALEXin [Keflex] 750 mg PO Q12HR 7 Days #14 cap 09/25/23 Rx Allergies Allergy/AdvReac Type Severity Reaction Status Date / Time dopamine Allergy "WAS TOLD Verified 09/19/23 17:46 NOT TO HAVE RX AGAIN,VERY ILL STATES ALMOST " methylprednisolone AdvReac Hallucinati Verified 09/19/23 17:46 [From [facility]] ons Physical Exam Vitals: Vital Signs Temp Pulse Pulse Resp BP Pulse Ox 06/24/24 10:12 99.4 F 06/24/24 08:00 16 06/24/24 07:45 98 06/24/24 07:35 98.4 F 60 17 117/57 95 06/24/24 01:38 99.5 F 63 16 143/56 93 L 06/23/24 20:15 100.3 F H 06/23/24 20:00 16 06/23/24 19:35 102.8 F H 57 L 16 159/64 92 L 06/23/24 17:51 99.4 F 06/23/24 14:00 97.5 F L 60 18 144/60 94 L 06/23/24 12:15 68 06/23/24 12:03 64 Intake and Output 06/23/24 06/24/24 06/24/24 22:59 06:59 14:59 Intake Total 1860 Output Total 200 300 75 Balance 1660 -300 -75 Intake: Oral 1860 Output: Urine 200 300 75 Other: Voiding Method Urinal Diaper # Voids 2 # Bowel Movements 1 GENERAL DESCRIPTION: Elderly male lying in bed, no distress. No tachypnea or accessory muscle of respiration use. HEENT: Shows Pallor , no scleral icterus. Oral mucous membrane is dry. No pharyngeal erythema or thrush NECK: Trachea central, no thyromegaly. LUNGS: Unlabored breathing. Clear to auscultation anteriorly. No wheeze or crackle. HEART: S1, S2, regular rate and rhythm. No loud murmur ABDOMEN: Soft, no tenderness , guarding or rigidity, no organomegaly EXTREMITIES: No edema of feet. SKIN: No rash, no masses palpable. NEUROLOGICAL: The patient is awake, alert, oriented x3, mood and affect normal. Results CBC & Chem 7: 06/24/24 02:54 06/24/24 02:54 Labs: Abnormal Lab Results - Last 24 Hours (Table) 06/24/24 06/24/24 06/24/24 Range/Units 02:54 02:54 02:54 RBC 3.73 L (4.40-5.60) X 10*6/uL Hgb 10.9 L (13.0-17.0) g/dL Hct 35.7 L (39.6-50.0) % MCHC 30.5 L (32.0-37.0) g/dL RDW 14.6 H (11.5-14.5) % Plt Count 110 L (140-440) X 10*3/uL Monocytes # 1.54 H (0.20-1.00) X 10*3/uL Eosinophils # 0.02 L (0.04-0.35) X 10*3/uL PT 22.9 H (10.0-12.5) sec INR 2.3 H (<1.2) Carbon Dioxide 18.8 L (21.6-31.8) mmol/L Anion Gap 13.20 H (4.00-12.00) mmol/L BUN 34.8 H (9.0-27.0) mg/dL Creatinine 1.8 H (0.6-1.5) mg/dL Est GFR (CKD-EPI) 37 L (>=60) Calcium 8.4 L (8.7-10.3) mg/dL Urine Protein (Negative) Urine Blood (Negative) Urine RBC (0-5) /hpf Amorphous Sediment (None) /hpf Urine Bacteria (None) /hpf Urine Mucus (None) /hpf 06/24/24 Range/Units 03:11 RBC (4.40-5.60) X 10*6/uL Hgb (13.0-17.0) g/dL Hct (39.6-50.0) % MCHC (32.0-37.0) g/dL RDW (11.5-14.5) % Plt Count (140-440) X 10*3/uL Monocytes # (0.20-1.00) X 10*3/uL Eosinophils # (0.04-0.35) X 10*3/uL PT (10.0-12.5) sec INR (<1.2) Carbon Dioxide (21.6-31.8) mmol/L Anion Gap (4.00-12.00) mmol/L BUN (9.0-27.0) mg/dL Creatinine (0.6-1.5) mg/dL Est GFR (CKD-EPI) (>=60) Calcium (8.7-10.3) mg/dL Urine Protein 1+ H (Negative) Urine Blood Moderate H (Negative) Urine RBC 156 H (0-5) /hpf Amorphous Sediment Rare H (None) /hpf Urine Bacteria Rare H (None) /hpf Urine Mucus Rare H (None) /hpf Assessment and Plan (1) Fever Current Visit: Yes Status: Acute Code(s): R50.9 - FEVER, UNSPECIFIED SNOMED Code(s): 711179762 (2) UTI (urinary tract infection) Current Visit: No Status: Acute Code(s): N39.0 - URINARY TRACT INFECTION, SITE NOT SPECIFIED SNOMED Code(s): 33560387 Plan: 1patient with a fever in this patient with initial presentation to the hospital with some urinary frequency and burning and the patient also noticed to have a positive UA likely concerning for urinary tract infection from enteric gram- negative pathogen. 2we will start the patient on Rocephin pending culture finalization. Question concern answered We will follow on clinical condition and cultures to further adjust medication if needed Thank you for this consultation we will follow the patient along with you Dictation was produced using [employer] software. please excuse any grammatical, word or spelling errors. Time with Patient: Greater than 30
--- NOTE | 2024-06-25 11:17 | P.PN ---
Subjective Patient is seen in follow-up for acute kidney injury. Admits to good urine output. Currently off IV fluids. No vomiting or diarrhea. No active c omplaints. Vital signs are stable. General: No acute distress. HEENT: Head exam is unremarkable. LUNGS: No audible rhonchi or wheezes. HEART: Rate and Rhythm are regular. ABDOMEN: Nontender. EXTREMITITES: No edema. Objective - Vital Signs Vital signs: Vital Signs Temp 98.1 F 06/25/24 07:28 Pulse 64 06/25/24 07:28 Resp 15 06/25/24 07:28 BP 144/65 06/25/24 07:28 Pulse Ox 97 06/25/24 07:48 FiO2 21 06/23/24 08:36 Intake & Output 06/24/24 06/25/24 06/25/24 18:59 06:59 18:59 Intake Total 480 480 Output Total 475 500 Balance 5 -500 480 Weight 86.4 kg Intake: Oral 480 480 Output: Urine 475 500 Other: Voiding Method Urinal Diaper - Labs CBC & Chem 7: 06/24/24 02:54 06/24/24 02:54 Labs: Abnormal Lab Results - Last 24 Hours (Table) 06/25/24 Range/Units 02:38 PT 31.3 H (10.0-12.5) sec INR 3.2 H (<1.2) Assessment and Plan Plan: Assessment: 1. Acute kidney injury secondary to ATN secondary to hypovolemia. Creatinine 2.1 on admission and is fairly stable at 1.8 yesterday. UA benign. Limited assessment on kidney ultrasound but no hydronephrosis noted. Creatinine 1.2 dated September 25, 2023. 2. Hyperkalemia secondary to acute kidney injury on Aldactone. Improved. 3. Metabolic acidosis secondary to acute kidney injury and IV fluids. On oral bicarb. 4. Benign hypertension. Controlled. 5. Volume overload. On Lasix. Plan: Encouraged oral intake. Avoid nephrotoxins. Continue to monitor renal function and urine output. Repeat BMP and magnesium level 2 to 3 days postdischarge. Follow-up outpatient in 1 week. Morning labs pending.
[2024-06-25 12:34] LABS: BUN/Creat Ratio 21.61 Ratio (12.00-20.00); Blood Urea Nitrogen 38.9 mg/dL (9.0-27.0); Calcium 8.3 mg/dL (8.7-10.3); Carbon Dioxide 20.8 mmol/L (21.6-31.8); Chloride 102 mmol/L (96-109); Glucose 105 mg/dL (70-110); Potassium 4.4 mmol/L (3.5-5.5); Sodium 135 mmol/L (135-145)
--- NOTE | 2024-06-25 13:05 | P.PN ---
Subjective Progress Note Date: 06/25/24 This is a pleasant 84 years old male with multiple medical problems. He was admitted on 06/21 for increased frequency of urination with some dysuria. Patient has been dehydrated with evidence of acute kidney injury and hyperkalemia on admission. Patient is followed closely by nephrology team and is treated with IV fluid. Lasix was placed on hold. Creatinine improved down from 1.96 on admission to 1.7 yesterday. Potassium was also better at 4.4 today.. Hemoglobin 10.8. INR 1.7 Chest x-ray: Similar CHF with pulmonary vascular congestion. Possible trace right effusion now. Patient hemodynamically stable /. Patient seen and examined. Blood work done this morning showed WBC 9.06, hemoglobin 10.9, platelet count 110, INR 2.3, sodium 134, potassium 5.3, BUN 34.8, creatinine 1.8. States he feels much better. 06/25. Patient seen and examined. Complaining of generalized weakness, PT and OT consulted REVIEW OF SYSTEMS: CONSTITUTIONAL: No fever, no malaise,. CARDIOVASCULAR: No chest pain, no palpitations, no syncope. PULMONARY: No shortness of breath, no cough, GASTROINTESTINAL: No diarrhea, no nausea, no vomiting, no abdominal pain. NEUROLOGICAL: No headaches, no weakness, PHYSICAL EXAMINATION: GENERAL: The patient is alert and oriented x3, not in any acute distress. Well developed, well nourished. HEENT: Pupils are round and equally reacting to light. EOMI. No scleral icterus. No conjunctival pallor. Normocephalic, atraumatic. No pharyngeal erythema. No thyromegaly. CARDIOVASCULAR: S1 and S2 present. No murmurs, rubs, or gallops. PULMONARY: Chest is clear to auscultation, no wheezing or crackles. ABDOMEN: Soft, nontender, nondistended, normoactive bowel sounds. No palpable organomegaly. MUSCULOSKELETAL: No joint swelling or deformity. EXTREMITIES: No cyanosis, clubbing, or pedal edema. NEUROLOGICAL: Gross neurological examination did not reveal any focal deficits. SKIN: No rashes. Assessment and plan Acute kidney injury and hyperkalemia, improved chronic kidney disease stage III CHF Artificial aortic valve on Coumadin at home COPD, no acute process Hypertension Hyperlipidemia Osteoarthritis Monitor vital signs Monitor CBC Monitor CMP Strict I's and O's, daily weights, Continue IV Rocephin Continue sodium bicarb and Lasix Nephrology following ID following PT and OT following Labs and medication were reviewed.. Continue same treatment. Continue with symptomatic treatment. Resume home medication. Monitor labs and vitals. DVT and GI prophylaxis. Further recommendations as per clinical course of the patient Dictation was produced using [email or web address] dictation software. please excuse any grammatical, word or spelling errors. Objective - Vital Signs Vital signs: Vital Signs Temp 98.1 F 06/25/24 07:28 Pulse 64 06/25/24 07:28 Resp 15 06/25/24 07:28 BP 144/65 06/25/24 07:28 Pulse Ox 97 06/25/24 07:48 FiO2 21 06/23/24 08:36 Intake & Output 06/24/24 06/25/24 06/25/24 18:59 06:59 18:59 Intake Total 480 Output Total 475 500 Balance 5 -500 Weight 86.4 kg Intake: Oral 480 Output: Urine 475 500 Other: Voiding Method Urinal Diaper - Labs CBC & Chem 7: 06/24/24 02:54 06/25/24 02:38 Labs: Abnormal Lab Results - Last 24 Hours (Table) 06/24/24 06/25/24 Range/Units 02:54 02:38 Monocytes # 1.54 H (0.20-1.00) X 10*3/uL Eosinophils # 0.02 L (0.04-0.35) X 10*3/uL PT 31.3 H (10.0-12.5) sec INR 3.2 H (<1.2)
--- NOTE | 2024-06-25 14:03 | P.PN ---
Subjective Progress Note Date: 06/25/24 Principal diagnosis: Reason for follow-up is fever Patient is a 84-year-old male with a past medical history significant for COPD hypertension hyperlipidemia osteoarthritis prostate disorder patient presenting with dysuria and frequent urination did have a fever prompting this consultation. On today's evaluation that is 06/25/2024, the patient did have improvement in his fever pattern last temperature was 100 F last night afebrile this morning the patient is on room air and breathing comfortably, the Pt denies having any chest pain or cough, the patient denies having any abdominal pain no vomiting or any diarrhea has been reported by the nursing staff. Patient did have a creatinine 1.8 no CBC was done today, repeat urine shows hematuria but no pyuria Objective - Vital Signs Vital signs: Vital Signs Temp 98.1 F 06/25/24 07:28 Pulse 64 06/25/24 07:28 Resp 15 06/25/24 07:28 BP 144/65 06/25/24 07:28 Pulse Ox 97 06/25/24 07:48 FiO2 21 06/23/24 08:36 Intake & Output 06/24/24 06/25/24 06/25/24 18:59 06:59 18:59 Intake Total 480 720 Output Total 475 500 350 Balance 5 -500 370 Weight 86.4 kg Intake: Oral 480 720 Output: Urine 475 500 350 Other: Voiding Method Urinal Diaper # Bowel Movements 1 - Exam GENERAL DESCRIPTION: An elderly male lying in bed in no distress RESPIRATORY SYSTEM: Unlabored breathing , decreased breath sounds at bases HEART: S1 S2 regular rate and rhythm , ABDOMEN: Soft , no tenderness EXTREMITIES: No edema feet - Labs CBC & Chem 7: 06/24/24 02:54 06/25/24 02:38 Labs: Abnormal Lab Results - Last 24 Hours (Table) 06/25/24 06/25/24 Range/Units 02:38 02:38 PT 31.3 H (10.0-12.5) sec INR 3.2 H (<1.2) Carbon Dioxide 20.8 L (21.6-31.8) mmol/L Anion Gap 12.20 H (4.00-12.00) mmol/L BUN 38.9 H (9.0-27.0) mg/dL Creatinine 1.8 H (0.6-1.5) mg/dL Est GFR (CKD-EPI) 37 L (>=60) BUN/Creatinine Ratio 21.61 H (12.00-20.00) Ratio Calcium 8.3 L (8.7-10.3) mg/dL Assessment and Plan (1) Fever Current Visit: Yes Status: Acute Code(s): R50.9 - FEVER, UNSPECIFIED SNOMED Code(s): 698487634 (2) UTI (urinary tract infection) Current Visit: No Status: Acute Code(s): N39.0 - URINARY TRACT INFECTION, SITE NOT SPECIFIED SNOMED Code(s): 81911193 Plan: 1patient with a fever in this patient with initial presentation to the hospital with some urinary frequency and burning with initial concern for possible UTI however patient UA shows mostly hematuria and no pyuria patient did have improvement of his fever pattern with Rocephin to continue at this point we will check a CT of abdominal pelvis with oral contrast to rule out intra-abdominal pathology and for now continue with Rocephin Dictation was produced using [employer] dictation software. please excuse any grammatical, word or spelling errors. Time with Patient: Less than 30
[2024-06-25] MEDS: IOPAMIDOL CONTRAST (ORAL USE) VIAL PO PRN (14:29)
--- NOTE | 2024-06-25 14:50 | XR ---
EXAMINATION TYPE: XR chest 1V portable DATE OF EXAM: 06/25/2024 2:33 PM CLINICAL INDICATION: Male, 84 years old with history of Fever, SOB, low O2; PHH COMPARISON: Chest radiographs from 06/23/2024 TECHNIQUE: XR chest 1V portable Frontal view of the chest. FINDINGS: Lungs/Pleura: No evidence of focal consolidation or pneumothorax. Blunting of the costophrenic angles is present. Pulmonary vascularity: Pulmonary vascular congestion. Heart/mediastinum: Cardiomediastinal silhouette is enlarged. Two lead cardiac conduction device overl kaylyn the left hemithorax with lead tips projecting over the right ventricle and right atrium. Musculoskeletal: No acute osseous pathology. Midline sternotomy wires are noted. Other findings: None Lines/Tubes: IMPRESSION: Cardiomegaly, pulmonary vascular congestion and bilateral pleural effusions. Correlate with BNP for c ongestive heart failure.
--- NOTE | 2024-06-25 18:12 | CT ---
EXAMINATION TYPE: CT abdomen pelvis wo con DATE OF EXAM: 06/25/2024 COMPARISON: 05/09/2019 INDICATION: fever DLP: 1256 mGycm, Automated exposure control for dose reduction was used. CONTRAST: 0 mL of Isovue 300. Study performed with Oral Contrast TECHNIQUE: Axial images were obtained from above the diaphragm to the pubic rami in the axial plane a t 5 mm thick sections. Reconstructed images are reviewed on the computer in the coronal plane. FINDINGS: Limited CT sections are obtained the lung bases. Bibasilar groundglass opacities with air bronchogra ms are present. Small bilateral pleural effusions are present. Correlate for pneumonia. Consider atyp ical pneumonia.. Ascending thoracic aorta at the main pulmonary artery is 4.5 cm. Main pulmonary loretta ry the bifurcation is 3.5 cm. Coronary artery calcification is present. Cardiac valve calcifications are also present. CT ABDOMEN: Liver: Normal Spleen: Normal Pancreas: Normal Adrenal glands: The adrenal glands are normal. Gallbladder: Normal Kidneys: Scattered hyperdense masses are within the bilateral kidneys. The largest in the anterior ri ght mid kidney measuring 1.7 cm. The largest on the left inferior kidney measures 2.2 cm. These were present previously. There is a 2.2 cyst on the posterior kidney. No hydronephrosis is present. Aorta: Vascular calcification is within the aorta. Inferior vena cava: Normal. CT PELVIS: There is a 4.0 cm anterior abdominal wall hernia containing mesenteric fat in the periumbi lical region. Loops of bowel within the abdomen and pelvis are normal. There are loops of bowel which are incom pletely distended or lack oral contrast limiting their evaluation. Appendix: Normal as limitedly visualized. Urinary bladder: Normal. Genitourinary structures: Prostate appears unremarkable. Osseous structures: No suspicious lytic or sclerotic lesions. IMPRESSION: 1. Bibasilar groundglass opacities with air bronchograms. Correlate for atypical pneumonia. 2. Small bilateral pleural effusions. 3. Persistent small bilateral renal hyperdense masses. #4 anterior abdominal wall mesenteric fat cont aining hernia
[2024-06-25] MEDS: WARFARIN 1 MG TAB PO ONE (18:24)
[2024-06-26 07:32] LABS: INR 4.6 (<1.2)
--- NOTE | 2024-06-26 10:26 | P.PN ---
Subjective Patient is seen in follow-up for acute kidney injury. Admits to good urine output. Currently off IV fluids. No vomiting or diarrhea. No active c omplaints. Vital signs are stable. General: No acute distress. HEENT: Head exam is unremarkable. On 6 L nasal cannula. LUNGS: No audible rhonchi or wheezes. HEART: Rate and Rhythm are regular. ABDOMEN: Nontender. EXTREMITITES: No edema. Objective - Vital Signs Vital signs: Vital Signs Temp 97.5 F L 06/26/24 04:00 Pulse 60 06/26/24 04:00 Resp 20 06/26/24 04:00 BP 111/65 06/26/24 04:00 Pulse Ox 98 06/26/24 08:42 FiO2 21 06/23/24 08:36 Intake & Output 06/25/24 06/26/24 06/26/24 18:59 06:59 18:59 Intake Total 1800 10 240 Output Total 900 675 Balance 900 -665 240 Weight 79.5 kg Intake: IV 10 Invasive Line 2 10 Oral 1800 240 Output: Urine 900 675 Other: Voiding Method Urinal Diaper # Voids 1 1 # Bowel Movements 1 - Labs CBC & Chem 7: 06/24/24 02:54 06/25/24 02:38 Labs: Abnormal Lab Results - Last 24 Hours (Table) 06/25/24 06/26/24 Range/Units 02:38 06:36 PT 45.0 H (10.0-12.5) sec INR 4.6 H (<1.2) Carbon Dioxide 20.8 L (21.6-31.8) mmol/L Anion Gap 12.20 H (4.00-12.00) mmol/L BUN 38.9 H (9.0-27.0) mg/dL Creatinine 1.8 H (0.6-1.5) mg/dL Est GFR (CKD-EPI) 37 L (>=60) BUN/Creatinine Ratio 21.61 H (12.00-20.00) Ratio Calcium 8.3 L (8.7-10.3) mg/dL Microbiology - Last 24 Hours (Table) 06/24/24 03:11 Urine Culture - Final Urine,Voided 06/23/24 21:08 Blood Culture - Preliminary Blood Assessment and Plan Plan: Assessment: 1. Acute kidney injury secondary to ATN secondary to hypovolemia. Creatinine 2.1 on admission and stable at 1.8 yesterday. UA benign. Limited assessment on kidney ultrasound but no hydronephrosis noted. Creatinine 1.2 dated September 25, 2023. 2. Hyperkalemia secondary to acute kidney injury on Aldactone. Improved. 3. Metabolic acidosis secondary to acute kidney injury and IV fluids. On oral bicarb. 4. Benign hypertension. Controlled. 5. Volume overload. On Lasix. 6. Acute hypoxic respiratory failure. Component of fluid overload. ?PNA. Plan: Encouraged oral intake. 20 mg IV Lasix once this afternoon. Avoid nephrotoxins. Continue to monitor renal function and urine output. Repeat BMP and magnesium level 2 to 3 days postdischarge. Follow-up outpatient in 1 week.
--- NOTE | 2024-06-26 12:17 | P.PN ---
Subjective Progress Note Date: 06/26/24 Principal diagnosis: Reason for follow-up is fever Patient is a 84-year-old male with a past medical history significant for COPD hypertension hyperlipidemia osteoarthritis prostate disorder patient presenting with dysuria and frequent urination did have a fever prompting this consultation. On today's evaluation that is 06/26/2024, Patient is afebrile patient did get transferred to the telemetry floor for worsening shortness of breath, patient is currently on 6 L nasal cannula oxygen and denies having any shortness of breath, the patient denies any chest pain or significant cough, the patient denies any nausea vomiting did not have any abdominal pain and no diarrhea Patient did have a INR of 4.6 no CBC or BMP was done today blood culture repeat so far negative Objective - Vital Signs Vital signs: Vital Signs Temp 97.5 F L 06/26/24 04:00 Pulse 60 06/26/24 04:00 Resp 20 06/26/24 04:00 BP 111/65 06/26/24 04:00 Pulse Ox 98 06/26/24 08:42 FiO2 21 06/23/24 08:36 Intake & Output 06/25/24 06/26/24 06/26/24 18:59 06:59 18:59 Intake Total 1800 10 240 Output Total 900 675 100 Balance 900 -665 140 Weight 79.5 kg Intake: IV 10 Invasive Line 2 10 Oral 1800 240 Output: Urine 900 675 100 Other: Voiding Method Urinal Diaper # Voids 1 1 # Bowel Movements 1 - Exam GENERAL DESCRIPTION: An elderly male lying in bed in no distress RESPIRATORY SYSTEM: Unlabored breathing , decreased breath sounds at bases HEART: S1 S2 regular rate and rhythm , ABDOMEN: Soft , no tenderness EXTREMITIES: No edema feet - Labs CBC & Chem 7: 06/24/24 02:54 06/25/24 02:38 Labs: Abnormal Lab Results - Last 24 Hours (Table) 06/25/24 06/26/24 Range/Units 02:38 06:36 PT 45.0 H (10.0-12.5) sec INR 4.6 H (<1.2) Carbon Dioxide 20.8 L (21.6-31.8) mmol/L Anion Gap 12.20 H (4.00-12.00) mmol/L BUN 38.9 H (9.0-27.0) mg/dL Creatinine 1.8 H (0.6-1.5) mg/dL Est GFR (CKD-EPI) 37 L (>=60) BUN/Creatinine Ratio 21.61 H (12.00-20.00) Ratio Calcium 8.3 L (8.7-10.3) mg/dL Microbiology - Last 24 Hours (Table) 06/24/24 03:11 Urine Culture - Final Urine,Voided 06/23/24 21:08 Blood Culture - Preliminary Blood Assessment and Plan (1) Fever Current Visit: Yes Status: Acute Code(s): R50.9 - FEVER, UNSPECIFIED SNOMED Code(s): 275936750 (2) UTI (urinary tract infection) Current Visit: No Status: Acute Code(s): N39.0 - URINARY TRACT INFECTION, SITE NOT SPECIFIED SNOMED Code(s): 88543276 Plan: 1patient with a fever in this patient with initial presentation to the hospital with some urinary frequency and burning with initial concern for possible UTI however patient UA shows mostly hematuria and no pyuria patient did have improvement of his fever pattern patient also have CT of abdominal pelvis with oral contrast did not show any acute intra-abdominal pathology there was concern for possible pulmonary. Question related to the fluid versus atypical infection he did tested negative for COVID RSV and influenza will check a procalcitonin continue Rocephin Dictation was produced using [employer] dictation software. please excuse any grammatical, word or spelling errors. Time with Patient: Less than 30
[2024-06-26 12:18] LABS: HCT 32.8 % (39.0-53.0); HGB 10.7 gm/dL (13.0-17.5); MCH 30.4 pg (25.0-35.0); MCHC 32.6 g/dL (31.0-37.0); MCV 93.5 fL (80.0-100.0); Mean Platelet Volume 9.8; Platelet Count 134 k/uL (150-450); RBC 3.51 m/uL (4.30-5.90); RDW 14.4 % (11.5-15.5); WBC 11.2 k/uL (3.8-10.6)
--- NOTE | 2024-06-26 12:30 | P.PN ---
Subjective Progress Note Date: 06/26/24 This is a pleasant 84 years old male with multiple medical problems. He was admitted on 06/21 for increased frequency of urination with some dysuria. Patient has been dehydrated with evidence of acute kidney injury and hyperkalemia on admission. Patient is followed closely by nephrology team and is treated with IV fluid. Lasix was placed on hold. Creatinine improved down from 1.96 on admission to 1.7 yesterday. Potassium was also better at 4.4 today.. Hemoglobin 10.8. INR 1.7 Chest x-ray: Similar CHF with pulmonary vascular congestion. Possible trace right effusion now. Patient hemodynamically stable /. Patient seen and examined. Blood work done this morning showed WBC 9.06, hemoglobin 10.9, platelet count 110, INR 2.3, sodium 134, potassium 5.3, BUN 34.8, creatinine 1.8. States he feels much better. 06/25. Patient seen and examined. Complaining of generalized weakness, PT and OT consulted 06/26. Patient seen and examined. Patient went to respiratory distress yesterday afternoon, was placed on 6 L of oxygen. Chest x-ray done showed cardiomegaly, pulm vascular congestion and bilateral pleural effusions. CT abdominal pelvis done showed Bibasilar groundglass opacity with air bronchograms, small bilateral pleural effusions, persistent small bilateral renal hypodense masses. States breathing is improved, patient was given extra dose of Lasix IV this morning. REVIEW OF SYSTEMS: CONSTITUTIONAL: No fever, no malaise,. CARDIOVASCULAR: No chest pain, no palpitations, no syncope. PULMONARY: Complaining of shortness of breath GASTROINTESTINAL: No diarrhea, no nausea, no vomiting, no abdominal pain. NEUROLOGICAL: No headaches, no weakness, PHYSICAL EXAMINATION: GENERAL: The patient is alert and oriented x3, not in any acute distress. Well developed, well nourished. HEENT: Pupils are round and equally reacting to light. EOMI. No scleral icterus. No conjunctival pallor. Normocephalic, atraumatic. No pharyngeal erythema. No thyromegaly. CARDIOVASCULAR: S1 and S2 present. No murmurs, rubs, or gallops. PULMONARY: Diminished breath sounds at the bases, no wheezing or crackles. ABDOMEN: Soft, nontender, nondistended, normoactive bowel sounds. No palpable organomegaly. MUSCULOSKELETAL: No joint swelling or deformity. EXTREMITIES: No cyanosis, clubbing, or pedal edema. NEUROLOGICAL: Gross neurological examination did not reveal any focal deficits. SKIN: No rashes. Assessment and plan Acute hypoxic respiratory failure Acute kidney injury and hyperkalemia, improved chronic kidney disease stage III Acute CHF Artificial aortic valve on Coumadin at home COPD, no acute process Hypertension Hyperlipidemia Osteoarthritis Monitor vital signs Monitor CBC Monitor CMP Strict I's and O's, daily weights, Continue IV Rocephin Continue sodium bicarb and Lasix, given additional dose of IV Lasix Aggressive bronchopulmonary hygiene Continue breathing treatments Nephrology following ID following Pulmonary consulted PT and OT following Labs and medication were reviewed.. Continue same treatment. Continue with symptomatic treatment. Resume home medication. Monitor labs and vitals. DVT and GI prophylaxis. Further recommendations as per clinical course of the patient Dictation was produced using [employer] dictation software. please excuse any grammatical, word or spelling errors. Objective - Vital Signs Vital signs: Vital Signs Temp 97.5 F L 06/26/24 04:00 Pulse 60 06/26/24 04:00 Resp 20 06/26/24 04:00 BP 111/65 06/26/24 04:00 Pulse Ox 98 06/26/24 08:42 FiO2 21 06/23/24 08:36 Intake & Output 06/25/24 06/26/24 06/26/24 18:59 06:59 18:59 Intake Total 1800 10 240 Output Total 900 675 Balance 900 -665 240 Weight 79.5 kg Intake: IV 10 Invasive Line 2 10 Oral 1800 240 Output: Urine 900 675 Other: Voiding Method Urinal Diaper # Voids 1 1 # Bowel Movements 1 - Labs CBC & Chem 7: 06/26/24 11:40 06/25/24 02:38 Labs: Abnormal Lab Results - Last 24 Hours (Table) 06/25/24 06/26/24 Range/Units 02:38 06:36 PT 45.0 H (10.0-12.5) sec INR 4.6 H (<1.2) Carbon Dioxide 20.8 L (21.6-31.8) mmol/L Anion Gap 12.20 H (4.00-12.00) mmol/L BUN 38.9 H (9.0-27.0) mg/dL Creatinine 1.8 H (0.6-1.5) mg/dL Est GFR (CKD-EPI) 37 L (>=60) BUN/Creatinine Ratio 21.61 H (12.00-20.00) Ratio Calcium 8.3 L (8.7-10.3) mg/dL Microbiology - Last 24 Hours (Table) 06/24/24 03:11 Urine Culture - Final Urine,Voided 06/23/24 21:08 Blood Culture - Preliminary Blood
[2024-06-26 13:33] LABS: ALT 14 U/L (4-49); AST 27 U/L (17-59); African American GFR (CKD) 47 (>60 ml/min/1.73 sqM); Albumin 2.8 g/dL (3.5-5.0); Alkaline Phosphatase 61 U/L (38-126); Anion Gap 5 mmol/L; Blood Urea Nitrogen 47 mg/dL (9-20); Calcium 8.4 mg/dL (8.4-10.2); Carbon Dioxide 23 mmol/L (22-30); Chloride 106 mmol/L (98-107); Glucose 90 mg/dL (74-99); Non-African American GFR(CKD) 41 (>60 ml/min/1.73 sqM); Potassium 4.4 mmol/L (3.5-5.1); Sodium 134 mmol/L (137-145); Total Bilirubin 0.6 mg/dL (0.2-1.3); Total Protein 5.7 g/dL (6.3-8.2)
[2024-06-26] MEDS: FUROSEMIDE 10 MG/ML 2 ML VIAL IV ONE (16:31)
[2024-06-27 06:10] LABS: HCT 31.6 % (39.0-53.0); HGB 10.2 gm/dL (13.0-17.5); MCH 29.9 pg (25.0-35.0); MCHC 32.4 g/dL (31.0-37.0); MCV 92.2 fL (80.0-100.0); Mean Platelet Volume 9.2; Platelet Count 186 k/uL (150-450); RBC 3.43 m/uL (4.30-5.90); RDW 14.1 % (11.5-15.5); WBC 11.4 k/uL (3.8-10.6)
--- NOTE | 2024-06-27 06:17 | P.CNPUL ---
History of Present Illness Consult date: 06/27/24 Requesting physician: Satnam Walker Reason for consult: dyspnea Chief complaint: Urinary complaints History of present illness: Patient is an 84-year-old white male with past medical history significant for COPD, hyperlipidemia, hypertension, valvular heart disease and previous mechanical aortic valve replacement, pacemaker, and prostate disorder. Patient originally presented to the emergency department back on 06/21/2024 primarily with urinary complaints; however, patient denies this. We were consulted yesterday, as the patient has had increased oxygen demands. He has been intermittently febrile, with a Tmax of 102.8 F. Procalcitonin level elevated at 2.69 most recent chest x-ray showing diffuse bilateral infiltrates, blunting of costophrenic angles, cardiomegaly. NT proBNP was elevated at 12,500. A CT of the abdomen and pelvis Showed bibasilar groundglass opacity with air bronch ograms, concerning for atypical pneumonia. There was small bilateral pleural effusions. Viral screen negative for influenza, RSV, COVID. Patient is currently receiving empiric antibiotic coverage in the form of Rocephin. CBC from yesterday: WBC count 11.2, hemoglobin 10.7, hematocrit 33.8, platelets 134. BMP from yesterday: Sodium 134, potassium 4.4, chloride 106, serum bicarb 23, BUN 47, creatinine 1.54, glucose 90. This is an acute kidney injury, creatinine slowly improving. Urine culture was negative. Blood culture pending, and demonstrating no growth at 48 hours. Patient has a DNR/DNI status. He is currently resting comfortably in bed. On 6 L/min nasal cannula, SpO2 96%. Tommie es any coughing, sputum production, chest pain. Continues to be intermittently febrile. Hemodynamics are stable. Review of Systems REVIEW OF SYSTEMS: CONSTITUTIONAL: Denies any recent significant weight loss or weight gain. EYES: Denies change in vision. EARS, NOSE, MOUTH, THROAT: Denies headaches, denies sore throat. CARDIOVASCULAR: Denies chest pain, palpitations or syncopal episodes. Admits lower extremity swelling prior to his hospital admission RESPIRATORY: Denies shortness of breath, cough, congestion or hemoptysis. GASTROINTESTINAL: Denies change in appetite, abdominal pain, nausea and vomiting, or diarrhea GENITOURINARY: Denies hematuria, denies infections. MUSKULOSKELETAL: Denies pain, denies swelling. INTEGUMENTARY: Denies rash, denies eczema. NEUROLOGICAL: Denies recent memory loss, no recent seizure activity. PSYCHIATRIC: Denies anxiety, denies depression. HEMATOLOGIC/LYMPHATIC: Denies anemia, denies enlarged lymph node Past Medical History Past Medical History: Cancer, COPD, Hyperlipidemia, Hypertension, Osteoarthritis (OA), Pneumonia, Prostate Disorder Additional Past Medical History / Comment(s): ARRYTHYTHMIA,AORTIC VALVE REPLACEMENT,PROSTATE CANCER, History of Any Multi-Drug Resistant Organisms: None Reported Past Surgical History: Cardiac Valve Replacement, Pacemaker, Tonsillectomy Additional Past Surgical History / Comment(s): vasectomy. carotid artery. Permanent Pacemaker by Dr Clark Past Anesthesia/Blood Transfusion Reactions: No Reported Reaction Type of Cardiac Device: Permanent Pacemaker Device Placement Date:: 10/30/2020 Past Psychological History: Depression Smoking Status: Former smoker Past Alcohol Use History: None Reported Past Drug Use History: None Reported - Past Family History Mother History Unknown: Yes Family Medical History: Cancer Medications and Allergies Home Medications Medication Instructions Recorded Confirmed Type amLODIPine [Norvasc] 5 mg PO BID 05/14/19 09/19/23 History Warfarin [Coumadin] 5 mg PO DAILY 04/12/21 09/19/23 History Metoprolol Tartrate [Lopressor] 25 mg PO BID 06/11/21 09/19/23 History Spironolactone [Aldactone] 25 mg PO DAILY 30 Days #30 tab 07/01/21 09/19/23 Rx Atorvastatin [Lipitor] 40 mg PO DAILY 09/19/23 09/19/23 History Fluticasone Nasal [place] [Flonase 2 spray EA NOSTRIL DAILY 09/19/23 09/19/23 Hist ory Nasal [place]] Furosemide [Lasix] 20 mg PO BID 09/19/23 09/19/23 History Loratadine [Claritin] 10 mg PO DAILY 09/19/23 09/19/23 History Cholestyramine (with Sugar) 4 gm PO TID BETWEEN MEALS 7 Days 09/25/23 Rx [Questran Packet] #21 packet cephALEXin [Keflex] 750 mg PO Q12HR 7 Days #14 cap 09/25/23 Rx Allergies Allergy/AdvReac Type Severity Reaction Status Date / Time dopamine Allergy "WAS TOLD Verified 09/19/23 17:46 NOT TO HAVE RX AGAIN,VERY ILL STATES ALMOST " methylprednisolone AdvReac Hallucinati Verified 09/19/23 17:46 [From Solu-Medrol] ons Physical Exam Vitals: Vital Signs Temp Pulse Pulse Resp BP Pulse Ox 06/27/24 04:00 98.0 F 60 18 116/73 98 06/26/24 20:00 97.6 F 60 18 115/64 96 06/26/24 16:29 98.0 F 58 L 19 115/49 93 L 06/26/24 12:16 98.0 F 59 L 19 114/71 96 06/26/24 09:14 97.4 F L 64 20 121/70 95 06/26/24 08:42 98 Intake and Output 06/26/24 06/26/24 06/27/24 14:59 22:59 06:59 Intake Total 500 285 10 Output Total 200 1025 900 Balance 300 -020 890 Intake: IV 20 10 10 Invasive Line 2 20 10 10 Oral 480 275 Output: Urine 200 1025 900 Other: Voiding Method Urinal Urinal Urinal Diaper Diaper Diaper Weight 92.5 kg GENERAL EXAM: Alert, 84-year-old white male, sitting up in bed, on 6 L/min nasal cannula, comfortable in no apparent distress. HEAD: Normocephalic and atraumatic EYES: Normal reaction of pupils, equal size. NOSE: Clear with pink turbinates. THROAT: No erythema or exudates. NECK: No masses, no JVD. CHEST: No chest wall deformity. LUNGS: Equal air entry with scattered rhonchi. On 6 L/min nasal cannula, no conversational dyspnea or accessory muscle use while at rest CVS: S1 and S2 normal with no audible murmur, regular rhythm. No extra heart sounds ABDOMEN: No hepatosplenomegaly, active bowel sounds, no guarding or rigidity. SPINE: No scoliosis or deformity SKIN: No rashes CENTRAL NERVOUS SYSTEM: No focal deficits, tone is normal in all 4 extremities. EXTREMITIES: There is no peripheral edema, clubbing, or cyanosis. Peripheral pulses are intact. Chronic venous stasis changes noted bilaterally Results - Laboratory Findings CBC and BMP: 06/26/24 11:40 06/26/24 11:40 PT/INR, D-dimer PT 45.0 sec (10.0-12.5) H 06/26/24 06:36 INR 4.6 (<1.2) H 06/26/24 06:36 Abnormal lab findings: Abnormal Labs 06/23/24 06/23/24 06/23/24 04:29 04:29 04:29 WBC RBC 3.58 L Hgb 10.8 L Hct 33.8 L MCHC RDW Plt Count 108 L Lymphocytes # 0.5 L Monocytes # Eosinophils # PT 16.9 H INR 1.7 H Sodium 135 L Chloride 109 H Carbon Dioxide 21 L Anion Gap BUN 37 H Creatinine 1.71 H Est GFR (CKD-EPI) BUN/Creatinine Ratio Calcium Total Protein Albumin Procalcitonin Urine Protein Urine Blood Urine RBC Amorphous Sediment Urine Bacteria Urine Mucus 06/24/24 06/24/24 06/24/24 02:54 02:54 02:54 WBC RBC 3.73 L Hgb 10.9 L Hct 35.7 L MCHC 30.5 L RDW 14.6 H Plt Count 110 L Lymphocytes # Monocytes # 1.54 H Eosinophils # 0.02 L PT 22.9 H INR 2.3 H Sodium Chloride Carbon Dioxide 18.8 L Anion Gap 13.20 H BUN 34.8 H Creatinine 1.8 H Est GFR (CKD-EPI) 37 L BUN/Creatinine Ratio Calcium 8.4 L Total Protein Albumin Procalcitonin Urine Protein Urine Blood Urine RBC Amorphous Sediment Urine Bacteria Urine Mucus 06/24/24 06/25/24 06/25/24 03:11 02:38 02:38 WBC RBC Hgb Hct MCHC RDW Plt Count Lymphocytes # Monocytes # Eosinophils # PT 31.3 H INR 3.2 H Sodium Chloride Carbon Dioxide 20.8 L Anion Gap 12.20 H BUN 38.9 H Creatinine 1.8 H Est GFR (CKD-EPI) 37 L BUN/Creatinine Ratio 21.61 H Calcium 8.3 L Total Protein Albumin Procalcitonin Urine Protein 1+ H Urine Blood Moderate H Urine RBC 156 H Amorphous Sediment Rare H Urine Bacteria Rare H Urine Mucus Rare H 06/26/24 06/26/24 06/26/24 06:36 11:40 11:40 WBC 11.2 H RBC 3.51 L Hgb 10.7 L Hct 32.8 L MCHC RDW Plt Count 134 L Lymphocytes # Monocytes # Eosinophils # PT 45.0 H INR 4.6 H Sodium 134 L Chloride Carbon Dioxide Anion Gap BUN 47 H Creatinine 1.54 H Est GFR (CKD-EPI) BUN/Creatinine Ratio Calcium Total Protein 5.7 L Albumin 2.8 L Procalcitonin Urine Protein Urine Blood Urine RBC Amorphous Sediment Urine Bacteria Urine Mucus 06/26/24 11:40 WBC RBC Hgb Hct MCHC RDW Plt Count Lymphocytes # Monocytes # Eosinophils # PT INR Sodium Chloride Carbon Dioxide Anion Gap BUN Creatinine Est GFR (CKD-EPI) BUN/Creatinine Ratio Calcium Total Protein Albumin Procalcitonin 2.69 H Urine Protein Urine Blood Urine RBC Amorphous Sediment Urine Bacteria Urine Mucus - Diagnostic Findings Chest x-ray: image reviewed Assessment and Plan Assessment: Acute hypoxic respiratory failure, currently on 6 L/min nasal cannula, secondary to acute CHF exacerbation and pulmonary edema, underlying pneumonia could not be excluded. Recent chest x-ray showing cardiomegaly, pulmonary vascular federico estion, blunting of the costophrenic angles. NT proBNP elevated at 12,500. CT of the abdomen and pelvis demonstrating bibasilar groundglass opacities with air bronchograms, concerning for possible atypical pneumonia. Bilateral pleural effusions, small. Intermittently febrile. Procalcitonin level 2.6. Acute febrile illness Heart failure with preserved ejection fraction Valvular heart disease, history of moderate mitral stenosis and previous mechanical aortic valve replacement Permanent pacemaker Acute kidney injury, improving Hypertension History of hyperlipidemia Chronic obstructive pulmonary disease Former tobacco dependence Plan: Patient's medications, labs, chest x-ray reviewed Continue supplemental oxygen, to maintain oxygen saturation of 92% or greater Repeat chest x-ray this morning Patient currently receiving Lasix 20 mg daily. Continues to be covered on Rocephin for empiric antibiotic coverage. This is being managed by infectious disease specialist Procalcitonin level elevated at 2.6 Continues to be intermittently febrile. Negative for influenza, RSV, COVID Daily PT/INR, Coumadin being dosed accordingly Will continue to follow, additional recommendations forthcoming I have personally seen and examined the patient, performed the documentation and the assessment and plan as written. Number of minutes spent on the visit:20 Time with Patient: Greater than 30
[2024-06-27 06:23] LABS: INR 3.8 (<1.2); Prothrombin Time 37.7 sec (10.0-12.5)
--- NOTE | 2024-06-27 06:52 | XR ---
EXAMINATION TYPE: XR chest 1V portable DATE OF EXAM: 06/27/2024 CLINICAL HISTORY: Acute hypoxemic respiratory failure. TECHNIQUE: Single AP portable frontal view of the chest is obtained. COMPARISON: Chest x-ray from 2 days earlier FINDINGS: Overlying sternal wires are redemonstrated. There is cardiomegaly with dual lead pacemaker redemonstrated. Bilateral central increased opacities redemonstrated. Suspect trace bilateral pleura l effusions. Osseous structures are intact. IMPRESSION: Suspect persistent CHF exacerbation/fluid overload state. No significant change from most recent prior. Underlying acute infiltrates not excluded.
[2024-06-27 09:17] LABS: ALT 20 U/L (4-49); AST 33 U/L (17-59); African American GFR (CKD) 42 (>60 ml/min/1.73 sqM); Albumin 3.1 g/dL (3.5-5.0); Alkaline Phosphatase 73 U/L (38-126); Anion Gap 7 mmol/L; Blood Urea Nitrogen 48 mg/dL (9-20); Calcium 9.1 mg/dL (8.4-10.2); Carbon Dioxide 23 mmol/L (22-30); Chloride 105 mmol/L (98-107); Glucose 90 mg/dL (74-99); Magnesium 2.3 mg/dL (1.6-2.3); Non-African American GFR(CKD) 36 (>60 ml/min/1.73 sqM); Potassium 4.7 mmol/L (3.5-5.1); Sodium 135 mmol/L (137-145); Total Bilirubin 0.7 mg/dL (0.2-1.3)
--- NOTE | 2024-06-27 10:08 | P.PN ---
Subjective Patient is seen in follow-up for acute kidney injury. Admits to good urine output. Currently off IV fluids. No vomiting or diarrhea. No active c omplaints. Vital signs are stable. General: No acute distress. HEENT: Head exam is unremarkable. On 6 L nasal cannula. LUNGS: No audible rhonchi or wheezes. HEART: Rate and Rhythm are regular. ABDOMEN: Nontender. EXTREMITITES: No edema. Objective - Vital Signs Vital signs: Vital Signs Temp 98.4 F 06/27/24 08:00 Pulse 61 06/27/24 08:00 Resp 20 06/27/24 08:00 BP 128/68 06/27/24 08:00 Pulse Ox 99 06/27/24 08:23 FiO2 21 06/23/24 08:36 Intake & Output 06/26/24 06/27/24 06/27/24 18:59 06:59 18:59 Intake Total 775 20 Output Total 1225 900 300 Balance -450 -880 -300 Weight 92.5 kg Intake: IV 20 20 Invasive Line 2 20 20 Oral 755 Output: Urine 1225 900 300 Other: Voiding Method Urinal Urinal Diaper Diaper - Labs CBC & Chem 7: 06/27/24 05:21 06/27/24 05:21 Labs: Abnormal Lab Results - Last 24 Hours (Table) 06/26/24 06/26/24 06/26/24 Range/Units 11:40 11:40 11:40 WBC 11.2 H (3.8-10.6) k/uL RBC 3.51 L (4.30-5.90) m/uL Hgb 10.7 L (13.0-17.5) gm/dL Hct 32.8 L (39.0-53.0) % Plt Count 134 L (150-450) k/uL PT (10.0-12.5) sec INR (<1.2) Sodium 134 L (137-145) mmol/L BUN 47 H (9-20) mg/dL Creatinine 1.54 H (0.66-1.25) mg/dL Total Protein 5.7 L (6.3-8.2) g/dL Albumin 2.8 L (3.5-5.0) g/dL Procalcitonin 2.69 H (0.02-0.50) ng/mL 06/27/24 06/27/24 06/27/24 Range/Units 05:21 05:21 05:21 WBC 11.4 H (3.8-10.6) k/uL RBC 3.43 L (4.30-5.90) m/uL Hgb 10.2 L (13.0-17.5) gm/dL Hct 31.6 L (39.0-53.0) % Plt Count (150-450) k/uL PT 37.7 H (10.0-12.5) sec INR 3.8 H (<1.2) Sodium 135 L (137-145) mmol/L BUN 48 H (9-20) mg/dL Creatinine 1.70 H (0.66-1.25) mg/dL Total Protein 6.0 L (6.3-8.2) g/dL Albumin 3.1 L (3.5-5.0) g/dL Procalcitonin (0.02-0.50) ng/mL Microbiology - Last 24 Hours (Table) 06/23/24 21:08 Blood Culture - Preliminary Blood 06/24/24 03:11 Urine Culture - Final Urine,Voided Assessment and Plan Plan: Assessment: 1. Acute kidney injury secondary to ATN secondary to hypovolemia. Creatinine 2.1 on admission and stable at 1.7 today. UA benign. Limited assessment on kidney ultrasound but no hydronephrosis noted. Creatinine 1.2 dated September 25, 2023. 2. Hyperkalemia secondary to acute kidney injury on Aldactone. Improved. 3. Metabolic acidosis secondary to acute kidney injury and IV fluids. On oral bicarb. 4. Benign hypertension. Controlled. 5. Volume overload. On Lasix. 6. Acute hypoxic respiratory failure. Component of fluid overload. ?PNA. Plan: Encouraged oral intake. Change Lasix to 20 mg IV twice daily. Avoid nephrotoxins. Continue to monitor renal function and urine output. Repeat BMP and magnesium level 2 to 3 days postdischarge. Follow-up outpatient in 1 week.
[2024-06-27] MEDS: FUROSEMIDE 10 MG/ML 2 ML VIAL IV SCH (12:59)
--- NOTE | 2024-06-27 13:31 | P.PN ---
Subjective Progress Note Date: 06/27/24 This is a pleasant 84 years old male with multiple medical problems. He was admitted on 06/21 for increased frequency of urination with some dysuria. Patient has been dehydrated with evidence of acute kidney injury and hyperkalemia on admission. Patient is followed closely by nephrology team and is treated with IV fluid. Lasix was placed on hold. Creatinine improved down from 1.96 on admission to 1.7 yesterday. Potassium was also better at 4.4 today.. Hemoglobin 10.8. INR 1.7 Chest x-ray: Similar CHF with pulmonary vascular congestion. Possible trace right effusion now. Patient hemodynamically stable /. Patient seen and examined. Blood work done this morning showed WBC 9.06, hemoglobin 10.9, platelet count 110, INR 2.3, sodium 134, potassium 5.3, BUN 34.8, creatinine 1.8. States he feels much better. 06/25. Patient seen and examined. Complaining of generalized weakness, PT and OT consulted 06/26. Patient seen and examined. Patient went to respiratory distress yesterday afternoon, was placed on 6 L of oxygen. Chest x-ray done showed cardiomegaly, pulm vascular congestion and bilateral pleural effusions. CT abdominal pelvis done showed Bibasilar groundglass opacity with air bronchograms, small bilateral pleural effusions, persistent small bilateral renal hypodense masses. States breathing is improved, patient was given extra dose of Lasix IV this morning. . Patient seen and examined. States breathing has improved a lot. Currently on 4 L of oxygen. REVIEW OF SYSTEMS: CONSTITUTIONAL: No fever, no malaise,. CARDIOVASCULAR: No chest pain, no palpitations, no syncope. PULMONARY: As mentioned above GASTROINTESTINAL: No diarrhea, no nausea, no vomiting, no abdominal pain. NEUROLOGICAL: No headaches, no weakness, PHYSICAL EXAMINATION: GENERAL: The patient is alert and oriented x3, not in any acute distress. Well developed, well nourished. HEENT: Pupils are round and equally reacting to light. EOMI. No scleral icterus. No conjunctival pallor. Normocephalic, atraumatic. No pharyngeal erythema. No thyromegaly. CARDIOVASCULAR: S1 and S2 present. No murmurs, rubs, or gallops. PULMONARY: Diminished breath sounds at the bases, no wheezing or crackles. ABDOMEN: Soft, nontender, nondistended, normoactive bowel sounds. No palpable organomegaly. MUSCULOSKELETAL: No joint swelling or deformity. EXTREMITIES: No cyanosis, clubbing, or pedal edema. NEUROLOGICAL: Gross neurological examination did not reveal any focal deficits. SKIN: No rashes. Assessment and plan Acute hypoxic respiratory failure Acute kidney injury and hyperkalemia, improved chronic kidney disease stage III Acute CHF Artificial aortic valve on Coumadin at home COPD, no acute process Hypertension Hyperlipidemia Osteoarthritis Monitor vital signs Monitor CBC Monitor CMP Strict I's and O's, daily weights, Continue IV Rocephin Continue sodium bicarb Continue IV Lasix 20 mg every 12 Aggressive bronchopulmonary hygiene Continue breathing treatments Nephrology following ID following Pulmonary following PT and OT following Labs and medication were reviewed.. Continue same treatment. Continue with symptomatic treatment. Resume home medication. Monitor labs and vitals. DVT and GI prophylaxis. Further recommendations as per clinical course of the patient Dictation was produced using [employer] dictation software. please excuse any grammatical, word or spelling errors. Objective - Vital Signs Vital signs: Vital Signs Temp 97.7 F 06/27/24 12:55 Pulse 64 06/27/24 12:55 Resp 20 06/27/24 12:55 BP 115/56 06/27/24 12:55 Pulse Ox 96 06/27/24 12:55 FiO2 21 06/23/24 08:36 Intake & Output 06/26/24 06/27/24 06/27/24 18:59 06:59 18:59 Intake Total 775 20 476 Output Total 1225 900 600 Balance -450 -880 -124 Weight 92.5 kg Intake: IV 20 20 Invasive Line 2 20 20 Oral 755 476 Output: Urine 1225 900 600 Other: Voiding Method Urinal Urinal Diaper Diaper - Labs CBC & Chem 7: 06/27/24 05:21 06/27/24 05:21 Labs: Abnormal Lab Results - Last 24 Hours (Table) 06/26/24 06/26/24 06/27/24 Range/Units 11:40 11:40 05:21 WBC (3.8-10.6) k/uL RBC (4.30-5.90) m/uL Hgb (13.0-17.5) gm/dL Hct (39.0-53.0) % PT (10.0-12.5) sec INR (<1.2) Sodium 134 L 135 L (137-145) mmol/L BUN 47 H 48 H (9-20) mg/dL Creatinine 1.54 H 1.70 H (0.66-1.25) mg/dL Total Protein 5.7 L 6.0 L (6.3-8.2) g/dL Albumin 2.8 L 3.1 L (3.5-5.0) g/dL Procalcitonin 2.69 H (0.02-0.50) ng/mL 06/27/24 06/27/24 Range/Units 05:21 05:21 WBC 11.4 H (3.8-10.6) k/uL RBC 3.43 L (4.30-5.90) m/uL Hgb 10.2 L (13.0-17.5) gm/dL Hct 31.6 L (39.0-53.0) % PT 37.7 H (10.0-12.5) sec INR 3.8 H (<1.2) Sodium (137-145) mmol/L BUN (9-20) mg/dL Creatinine (0.66-1.25) mg/dL Total Protein (6.3-8.2) g/dL Albumin (3.5-5.0) g/dL Procalcitonin (0.02-0.50) ng/mL Microbiology - Last 24 Hours (Table) 06/23/24 21:08 Blood Culture - Preliminary Blood
--- NOTE | 2024-06-27 15:06 | P.PN ---
Subjective Progress Note Date: 06/27/24 Principal diagnosis: Reason for follow-up is fever Patient is a 84-year-old male with a past medical history significant for COPD hypertension hyperlipidemia osteoarthritis prostate disorder patient presenting with dysuria and frequent urination did have a fever prompting this consultation. On today's evaluation that is 06/27/2024, patient has been afebrile, patient is breathing comfortably and is currently on 6 L nasal cannula oxygen, patient denies having any significant cough or sputum production no chest pain shortness of breath, patient denies nausea vomiting or diarrhea and no abdominal pain. Patient white count is 11.4, creatinine 1.70 procalcitonin 2.69 Objective - Vital Signs Vital signs: Vital Signs Temp 97.7 F 06/27/24 12:55 Pulse 64 06/27/24 12:55 Resp 20 06/27/24 12:55 BP 115/56 06/27/24 12:55 Pulse Ox 96 06/27/24 12:55 FiO2 21 06/23/24 08:36 Intake & Output 06/26/24 06/27/24 06/27/24 18:59 06:59 18:59 Intake Total 775 20 476 Output Total 1225 900 600 Balance -450 -880 -124 Weight 92.5 kg Intake: IV 20 20 Invasive Line 2 20 20 Oral 755 476 Output: Urine 1225 900 600 Other: Voiding Method Urinal Urinal Diaper Diaper - Exam GENERAL DESCRIPTION: An elderly male lying in bed in no distress RESPIRATORY SYSTEM: Unlabored breathing , decreased breath sounds at bases HEART: S1 S2 regular rate and rhythm , ABDOMEN: Soft , no tenderness EXTREMITIES: No edema feet - Labs CBC & Chem 7: 06/27/24 05:21 06/27/24 05:21 Labs: Abnormal Lab Results - Last 24 Hours (Table) 06/26/24 06/27/24 06/27/24 Range/Units 11:40 05:21 05:21 WBC (3.8-10.6) k/uL RBC (4.30-5.90) m/uL Hgb (13.0-17.5) gm/dL Hct (39.0-53.0) % PT 37.7 H (10.0-12.5) sec INR 3.8 H (<1.2) Sodium 135 L (137-145) mmol/L BUN 48 H (9-20) mg/dL Creatinine 1.70 H (0.66-1.25) mg/dL Total Protein 6.0 L (6.3-8.2) g/dL Albumin 3.1 L (3.5-5.0) g/dL Procalcitonin 2.69 H (0.02-0.50) ng/mL 06/27/24 Range/Units 05:21 WBC 11.4 H (3.8-10.6) k/uL RBC 3.43 L (4.30-5.90) m/uL Hgb 10.2 L (13.0-17.5) gm/dL Hct 31.6 L (39.0-53.0) % PT (10.0-12.5) sec INR (<1.2) Sodium (137-145) mmol/L BUN (9-20) mg/dL Creatinine (0.66-1.25) mg/dL Total Protein (6.3-8.2) g/dL Albumin (3.5-5.0) g/dL Procalcitonin (0.02-0.50) ng/mL Microbiology - Last 24 Hours (Table) 06/23/24 21:08 Blood Culture - Preliminary Blood Assessment and Plan (1) Fever Current Visit: Yes Status: Acute Code(s): R50.9 - FEVER, UNSPECIFIED SNOMED Code(s): 695233040 (2) UTI (urinary tract infection) Current Visit: No Status: Acute Code(s): N39.0 - URINARY TRACT INFECTION, SITE NOT SPECIFIED SNOMED Code(s): 87934698 Plan: 1patient with a fever in this patient with initial presentation to the hospital with some urinary frequency and burning with initial concern for possible UTI however patient UA shows mostly hematuria and no pyuria patient did have improvement of his fever pattern patient also have CT of abdominal pelvis with oral contrast did not show any acute intra-abdominal pathology there was concern for possible pulmonary infiltrate, Question related to the fluid versus atypical infection he did tested negative for COVID RSV and influenza 2patient did have elevated procalcitonin 2.69 we will continue with Rocephin try to obtain a sputum and monitor clinical course closely Dictation was produced using [employer] software. please excuse any grammatical, word or spelling errors. Time with Patient: Less than 30
--- NOTE | 2024-06-28 10:20 | P.PN ---
Subjective Patient is seen in follow-up for acute kidney injury. Admits to good urine output. Currently off IV fluids. No vomiting or diarrhea. No active c omplaints. Creatinine 1.7 yesterday. Now on room air. Vital signs are stable. General: No acute distress. HEENT: Head exam is unremarkable. On room air. LUNGS: No audible rhonchi or wheezes. HEART: Rate and Rhythm are regular. ABDOMEN: Nontender. EXTREMITITES: No edema. Objective - Vital Signs Vital signs: Vital Signs Temp 97.4 F L 06/28/24 10:08 Pulse 64 06/28/24 10:08 Resp 18 06/28/24 10:08 BP 127/60 06/28/24 10:08 Pulse Ox 91 L 06/28/24 10:08 FiO2 21 06/23/24 08:36 Intake & Output 06/27/24 06/28/24 06/28/24 18:59 06:59 18:59 Intake Total 526 236 Output Total 900 925 200 Balance -374 -925 36 Weight 79 kg Intake: Intake, IV Titration 50 Amount cefTRIAXone 1 gm In 50 Sodium Chloride 0.9% 50 ml @ 100 mls/hr IVPB Q24HR [facility] Rx#:[id number] Oral 476 [id number] Output: Urine 900 925 200 Other: Voiding Method Urinal # Voids 1 - Labs CBC & Chem 7: 06/27/24 05:21 06/27/24 05:21 Labs: Microbiology - Last 24 Hours (Table) 06/23/24 21:08 Blood Culture - Preliminary Blood Assessment and Plan Plan: Assessment: 1. Acute kidney injury secondary to ATN secondary to hypovolemia. Creatinine 2.1 on admission and stable at 1.7 yesterday. UA benign. Limited assessment on kidney ultrasound but no hydronephrosis noted. Creatinine 1.2 dated September 25, 2023. 2. Hyperkalemia secondary to acute kidney injury on Aldactone. Improved. 3. Metabolic acidosis secondary to acute kidney injury and IV fluids. On oral bicarb. 4. Benign hypertension. Controlled. 5. Volume overload. On Lasix. 6. Acute hypoxic respiratory failure. Component of fluid overload. ?PNA. Plan: Encouraged oral intake. Transition to oral diuretics. Avoid nephrotoxins. Continue to monitor renal function and urine output. Repeat BMP and magnesium level 2 to 3 days postdischarge. Follow-up outpatient in 1 week.
[2024-06-28 10:24] LABS: Basophils # (A) 0.1 k/uL (0-0.2); Basophils % (A) 1 %; Eosinophils # (A) 0.2 k/uL (0-0.7); Eosinophils % (A) 2 %; HCT 34.2 % (39.0-53.0); HGB 10.7 gm/dL (13.0-17.5); Hypochromasia Slight; Lymphocytes # (A) 0.9 k/uL (1.0-4.8); Lymphocytes % (A) 9 %; MCHC 31.2 g/dL (31.0-37.0); Mean Platelet Volume 8.6; Monocytes # (A) 0.6 k/uL (0-1.0); Monocytes % (A) 6 %; Neutrophils # (A) 7.9 k/uL (1.3-7.7); Neutrophils % (A) 80 %; Platelet Count 249 k/uL (150-450); RBC 3.68 m/uL (4.30-5.90); WBC 9.9 k/uL (3.8-10.6)
[2024-06-28 10:37] LABS: ALT 20 U/L (4-49); AST 30 U/L (17-59); African American GFR (CKD) 48 (>60 ml/min/1.73 sqM); Albumin 3.1 g/dL (3.5-5.0); Alkaline Phosphatase 59 U/L (38-126); Anion Gap 6 mmol/L; Blood Urea Nitrogen 57 mg/dL (9-20); Calcium 8.6 mg/dL (8.4-10.2); Carbon Dioxide 25 mmol/L (22-30); Chloride 104 mmol/L (98-107); Glucose 116 mg/dL (74-99); Magnesium 2.1 mg/dL (1.6-2.3); Non-African American GFR(CKD) 42 (>60 ml/min/1.73 sqM); Potassium 4.3 mmol/L (3.5-5.1); Sodium 135 mmol/L (137-145); Total Bilirubin 0.7 mg/dL (0.2-1.3); Total Protein 6.3 g/dL (6.3-8.2)
--- NOTE | 2024-06-28 12:16 | P.PN ---
Subjective Progress Note Date: 06/28/24 Principal diagnosis: Reason for follow-up is fever Patient is a 84-year-old male with a past medical history significant for COPD hypertension hyperlipidemia osteoarthritis prostate disorder patient presenting with dysuria and frequent urination did have a fever prompting this consultation. On today's evaluation that is 06/28/2024, Patient is afebrile this morning pa tient denies having any chest pain shortness of breath or any significant cough, the patient is breathing comfortably and currently on room air, patient denies any abdominal pain no diarrhea no nausea no vomiting, mention feeling better. Patient white count normalized to 9.9, creatinine is 1.52 blood culture for negative Objective - Vital Signs Vital signs: Vital Signs Temp 97.4 F L 06/28/24 10:08 Pulse 64 06/28/24 11:27 Resp 18 06/28/24 11:27 BP 127/60 06/28/24 10:08 Pulse Ox 91 L 06/28/24 10:08 FiO2 21 06/23/24 08:36 Intake & Output 06/27/24 06/28/24 06/28/24 18:59 06:59 18:59 Intake Total 526 236 Output Total 900 925 200 Balance -374 -925 36 Weight 79 kg Intake: Intake, IV Titration 50 Amount cefTRIAXone 1 gm In 50 Sodium Chloride 0.9% 50 ml @ 100 mls/hr IVPB Q24HR COUNTS INCLUDE 234 BEDS AT THE [facility] Rx#:[id number] Oral 476 236 Output: Urine 900 925 200 Other: Voiding Method Urinal External Catheter # Voids 1 - Exam GENERAL DESCRIPTION: An elderly male lying in bed in no distress RESPIRATORY SYSTEM: Unlabored breathing , decreased breath sounds at bases HEART: S1 S2 regular rate and rhythm , ABDOMEN: Soft , no tenderness EXTREMITIES: No edema feet - Labs CBC & Chem 7: 06/28/24 09:19 06/28/24 09:19 Labs: Abnormal Lab Results - Last 24 Hours (Table) 06/28/24 06/28/24 Range/Units 09:19 09:19 RBC 3.68 L (4.30-5.90) m/uL Hgb 10.7 L (13.0-17.5) gm/dL Hct 34.2 L (39.0-53.0) % Neutrophils # 7.9 H (1.3-7.7) k/uL Lymphocytes # 0.9 L (1.0-4.8) k/uL Sodium 135 L (137-145) mmol/L BUN 57 H (9-20) mg/dL Creatinine 1.52 H (0.66-1.25) mg/dL Glucose 116 H (74-99) mg/dL Albumin 3.1 L (3.5-5.0) g/dL Microbiology - Last 24 Hours (Table) 06/23/24 21:08 Blood Culture - Preliminary Blood Assessment and Plan (1) Fever Current Visit: Yes Status: Acute Code(s): R50.9 - FEVER, UNSPECIFIED SNOMED Code(s): 478050780 (2) UTI (urinary tract infection) Current Visit: No Status: Acute Code(s): N39.0 - URINARY TRACT INFECTION, SITE NOT SPECIFIED SNOMED Code(s): 69223780 Plan: 1patient with a fever in this patient with initial presentation to the hospital with some urinary frequency and burning with initial concern for possible UTI however patient UA shows mostly hematuria and no pyuria patient did have improvement of his fever pattern patient also have CT of abdominal pelvis with oral contrast did not show any acute intra-abdominal pathology there was concern for possible pulmonary infiltrate, Question related to the fluid versus atypical infection he did tested negative for COVID RSV and influenza 2patient did have elevated procalcitonin 2.69 and did have some clinical improvement continue with Rocephin and monitor clinical course closely Dictation was produced using [employer] dictation software. please excuse any g rammatical, word or spelling errors. Time with Patient: Less than 30
--- NOTE | 2024-06-28 12:51 | P.PN ---
Subjective Progress Note Date: 06/28/24 This is a pleasant 84 years old male with multiple medical problems. He was admitted on 06/21 for increased frequency of urination with some dysuria. Patient has been dehydrated with evidence of acute kidney injury and hyperkalemia on admission. Patient is followed closely by nephrology team and is treated with IV fluid. Lasix was placed on hold. Creatinine improved down from 1.96 on admission to 1.7 yesterday. Potassium was also better at 4.4 today.. Hemoglobin 10.8. INR 1.7 Chest x-ray: Similar CHF with pulmonary vascular congestion. Possible trace right effusion now. Patient hemodynamically stable /. Patient seen and examined. Blood work done this morning showed WBC 9.06, hemoglobin 10.9, platelet count 110, INR 2.3, sodium 134, potassium 5.3, BUN 34.8, creatinine 1.8. States he feels much better. 06/25. Patient seen and examined. Complaining of generalized weakness, PT and OT consulted 06/26. Patient seen and examined. Patient went to respiratory distress yesterday afternoon, was placed on 6 L of oxygen. Chest x-ray done showed cardiomegaly, pulm vascular congestion and bilateral pleural effusions. CT abdominal pelvis done showed Bibasilar groundglass opacity with air bronchograms, small bilateral pleural effusions, persistent small bilateral renal hypodense masses. States breathing is improved, patient was given extra dose of Lasix IV this morning. . Patient seen and examined. States breathing has improved a lot. Currently on 4 L of oxygen. 06/28. Patient seen and examined. Continues to be afebrile. States breathing has improved. PT notes recommend rehab but patient is resistant to go to rehab REVIEW OF SYSTEMS: CONSTITUTIONAL: No fever, no malaise,. CARDIOVASCULAR: No chest pain, no palpitations, no syncope. PULMONARY: As mentioned above GASTROINTESTINAL: No diarrhea, no nausea, no vomiting, no abdominal pain. NEUROLOGICAL: No headaches, no weakness, PHYSICAL EXAMINATION: GENERAL: The patient is alert and oriented x3, not in any acute distress. Well developed, well nourished. HEENT: Pupils are round and equally reacting to light. EOMI. No scleral icterus. No conjunctival pallor. Normocephalic, atraumatic. No pharyngeal erythema. No thyromegaly. CARDIOVASCULAR: S1 and S2 present. No murmurs, rubs, or gallops. PULMONARY: Diminished breath sounds at the bases, no wheezing or crackles. ABDOMEN: Soft, nontender, nondistended, normoactive bowel sounds. No palpable organomegaly. MUSCULOSKELETAL: No joint swelling or deformity. EXTREMITIES: No cyanosis, clubbing, or pedal edema. NEUROLOGICAL: Gross neurological examination did not reveal any focal deficits. SKIN: No rashes. Assessment and plan Acute hypoxic respiratory failure Acute kidney injury and hyperkalemia, improved chronic kidney disease stage III Acute CHF Artificial aortic valve on Coumadin at home COPD, no acute process Hypertension Hyperlipidemia Osteoarthritis Monitor vital signs Monitor CBC Monitor CMP Strict I's and O's, daily weights, Continue IV Rocephin Continue sodium bicarb Continue Lasix 20 mg every 12 Aggressive bronchopulmonary hygiene Continue breathing treatments Nephrology following ID following Pulmonary following PT and OT following recommend rehab, refusing rehab Labs and medication were reviewed.. Continue same treatment. Continue with symptomatic treatment. Resume home medication. Monitor labs and vitals. DVT and GI prophylaxis. Further recommendations as per clinical course of the patient Dictation was produced using [employer] dictation software. please excuse any grammatical, word or spelling errors. Objective - Vital Signs Vital signs: Vital Signs Temp 97.8 F 06/28/24 04:00 Pulse 60 06/28/24 04:00 Resp 20 06/28/24 04:00 BP 128/78 06/28/24 04:00 Pulse Ox 94 L 06/28/24 08:37 FiO2 21 06/23/24 08:36 Intake & Output 06/27/24 06/28/24 06/28/24 18:59 06:59 18:59 Intake Total 526 236 Output Total 900 925 200 Balance -374 -925 36 Weight 79 kg Intake: Intake, IV Titration 50 Amount cefTRIAXone 1 gm In 50 Sodium Chloride 0.9% 50 ml @ 100 mls/hr IVPB Q24HR [facility] Rx#:[id number] Oral 476 [id number] Output: Urine 900 925 200 Other: Voiding Method Urinal # Voids 1 - Labs CBC & Chem 7: 06/28/24 09:19 06/28/24 09:19 Labs: Microbiology - Last 24 Hours (Table) 06/23/24 21:08 Blood Culture - Preliminary Blood
--- NOTE | 2024-06-28 13:38 | P.PN ---
Subjective Progress Note Date: 06/28/24 Principal diagnosis: Shortness of breath. Patient is an 84-year-old white male with past medical history significant for COPD, hyperlipidemia, hypertension, valvular heart disease and previous mechanical aortic valve replacement, pacemaker, and prostate disorder. Patient originally presented to the emergency department back on 06/21/2024 primarily with urinary complaints; however, patient denies this. We were consulted yesterday, as the patient has had increased oxygen demands. He has been intermittently febrile, with a Tmax of 102.8 F. Procalcitonin level elevated at 2.69 most recent chest x-ray showing diffuse bilateral infiltrates, blunting of costophrenic angles, cardiomegaly. NT proBNP was elevated at 12,500. A CT of the abdomen and pelvis Showed bibasilar groundglass opacity with air bronchograms, concerning for atypical pneumonia. There was small bilateral pleural effusions. Viral screen negative for influenza, RSV, COVID. Patient is currently receiving empiric antibiotic coverage in the form of Rocephin. CBC from yesterday: WBC count 11.2, hemoglobin 10.7, hematocrit 33.8, platelets 134. BMP from yesterday: Sodium 134, potassium 4.4, chloride 106, serum bicarb 23, BUN 47, creatinine 1.54, glucose 90. This is an acute kidney injury, creatinine slowly improving. Urine culture was negative. Blood culture pending, and demonstrating no growth at 48 hours. Patient has a DNR/DNI status. He is currently resting comfortably in bed. On 6 L/min nasal cannula, SpO2 96%. Denies any coughing, sputum production, chest pain. Continues to be intermittently febrile. Hemodynamics are stable. Progress note dated June 28, 2024. 84-year-old male that was seen in consultation yesterday. The patient was apparently having increasing shortness of breath, with increasing oxygen demands. Chest x-ray was consistent with possible fluid overload. N-terminal proBNP was elevated at 12,500. Currently, the patient is seen today in room 370. He is on room air. Saturations are 91%. The patient's procalcitonin level was 2.69. The patient is not receiving any IV fluids. The patient is on IV Rocephin, for possible urinary tract infection. Current labs include a white count 9.9, hemoglobin 10.7, hematocrit 34.2, and a normal platelet count. Sodium 135, potassium 4.3, chlorides 104, CO2 25, BUN 57, creatinine 1.52. Glucose is 116. Calcium 8.6. Albumin is 3.1. Procalcitonin level is 2.69. Blood and urine cultures are currently negative. Chest x-ray is consistent with fluid overload/CHF. Objective - Vital Signs Vital signs: Vital Signs Temp 97.4 F L 06/28/24 10:08 Pulse 61 06/28/24 12:32 Resp 18 06/28/24 12:32 BP 114/68 06/28/24 12:32 Pulse Ox 94 L 06/28/24 12:32 FiO2 21 06/23/24 08:36 Intake & Output 06/27/24 06/28/24 06/28/24 18:59 06:59 18:59 Intake Total 526 236 Output Total 900 925 200 Balance -374 -925 36 Weight 79 kg Intake: Intake, IV Titration 50 Amount cefTRIAXone 1 gm In 50 Sodium Chloride 0.9% 50 ml @ 100 mls/hr IVPB Q24HR [facility] Rx#:[id number] Oral [id number] Output: Urine 900 925 200 Other: Voiding Method Urinal External Catheter # Voids 1 - Exam No acute distress, oriented 3. Currently on room air. Saturations are 91%. HEENT examination is grossly unremarkable. Mucous membranes are moist. No oral lesions. Neck supple. Full range of motion. No adenopathy thyromegaly or neck vein distention. Cardiovascular examination reveals regular rhythm rate. S1-S2 normal. No S3 or S4. No discernible murmur noted. Lungs reveal mild scattered rhonchi and crackles. No wheezes. Breath sounds equal bilaterally. Abdomen soft bowel sounds are heard. No masses or tenderness. Extremities are intact. No cyanosis clubbing or edema. Skin reveals chronic venous stasis changes to the lower extremities. Neurologic examination is brief but nonfocal. - Labs CBC & Chem 7: 06/28/24 09:19 06/28/24 09:19 Labs: Abnormal Lab Results - Last 24 Hours (Table) 06/28/24 06/28/24 Range/Units 09:19 09:19 RBC 3.68 L (4.30-5.90) m/uL Hgb 10.7 L (13.0-17.5) gm/dL Hct 34.2 L (39.0-53.0) % Neutrophils # 7.9 H (1.3-7.7) k/uL Lymphocytes # 0.9 L (1.0-4.8) k/uL Sodium 135 L (137-145) mmol/L BUN 57 H (9-20) mg/dL Creatinine 1.52 H (0.66-1.25) mg/dL Glucose 116 H (74-99) mg/dL Albumin 3.1 L (3.5-5.0) g/dL Microbiology - Last 24 Hours (Table) 06/23/24 21:08 Blood Culture - Preliminary Blood Assessment and Plan Assessment: Acute hypoxic respiratory failure, secondary to acute CHF exacerbation and pulmonary edema, underlying pneumonia could not be excluded. Acute febrile illness. Heart failure with preserved ejection fraction. Valvular heart disease, history of moderate mitral stenosis and previous mechanical aortic valve replacement. Permanent pacemaker. Acute kidney injury, improving. Hypertension. History of hyperlipidemia. Chronic obstructive pulmonary disease. Former tobacco dependence. Plan: Plan dated June 28, 2024. The patient is seen today in room 370. The patient is currently on room air. Saturations are 91%. He is not receiving any IV fluids. The patient's N- terminal proBNP was quite elevated. The procalcitonin level was 2.69. The patient continues on Rocephin. Labs, x-rays, and all medications are reviewed. Culture data is thus far negative. We will continue to follow. Prognosis is guarded. Time with Patient: Less than 30
[2024-06-28] MEDS: FUROSEMIDE 20 MG TAB PO SCH (16:30)
[2024-06-29 09:46] LABS: INR 2.4 (<1.2); Prothrombin Time 24.2 sec (10.0-12.5)
[2024-06-29 09:52] LABS: Basophils # (A) 0.1 k/uL (0-0.2); Basophils % (A) 1 %; Eosinophils # (A) 0.2 k/uL (0-0.7); Eosinophils % (A) 2 %; HCT 35.4 % (39.0-53.0); HGB 11.1 gm/dL (13.0-17.5); Lymphocytes % (A) 11 %; MCH 29.4 pg (25.0-35.0); MCHC 31.4 g/dL (31.0-37.0); MCV 93.5 fL (80.0-100.0); Mean Platelet Volume 9.3; Monocytes # (A) 0.5 k/uL (0-1.0); Monocytes % (A) 5 %; Neutrophils # (A) 7.4 k/uL (1.3-7.7); Neutrophils % (A) 79 %; Platelet Count 252 k/uL (150-450); RBC 3.79 m/uL (4.30-5.90); RDW 14.3 % (11.5-15.5); WBC 9.3 k/uL (3.8-10.6)
[2024-06-29 09:54] LABS: ALT 22 U/L (4-49); AST 31 U/L (17-59); African American GFR (CKD) 45 (>60 ml/min/1.73 sqM); Albumin 3.2 g/dL (3.5-5.0); Alkaline Phosphatase 64 U/L (38-126); Anion Gap 8 mmol/L; Blood Urea Nitrogen 55 mg/dL (9-20); Calcium 8.6 mg/dL (8.4-10.2); Carbon Dioxide 25 mmol/L (22-30); Chloride 104 mmol/L (98-107); Glucose 159 mg/dL (74-99); Magnesium 2.3 mg/dL (1.6-2.3); Non-African American GFR(CKD) 39 (>60 ml/min/1.73 sqM); Potassium 4.3 mmol/L (3.5-5.1); Sodium 137 mmol/L (137-145); Total Bilirubin 0.6 mg/dL (0.2-1.3); Total Protein 6.3 g/dL (6.3-8.2)
--- NOTE | 2024-06-29 11:18 | P.PN ---
Subjective Progress Note Date: 06/29/24 Principal diagnosis: Shortness of breath. Patient is an 84-year-old white male with past medical history significant for COPD, hyperlipidemia, hypertension, valvular heart disease and previous mechanical aortic valve replacement, pacemaker, and prostate disorder. Patient originally presented to the emergency department back on 06/21/2024 primarily with urinary complaints; however, patient denies this. We were consulted yesterday, as the patient has had increased oxygen demands. He has been intermittently febrile, with a Tmax of 102.8 F. Procalcitonin level elevated at 2.69 most recent chest x-ray showing diffuse bilateral infiltrates, blunting of costophrenic angles, cardiomegaly. NT proBNP was elevated at 12,500. A CT of the abdomen and pelvis Showed bibasilar groundglass opacity with air bronchograms, concerning for atypical pneumonia. There was small bilateral pleural effusions. Viral screen negative for influenza, RSV, COVID. Patient is currently receiving empiric antibiotic coverage in the form of Rocephin. CBC from yesterday: WBC count 11.2, hemoglobin 10.7, hematocrit 33.8, platelets 134. BMP from yesterday: Sodium 134, potassium 4.4, chloride 106, serum bicarb 23, BUN 47, creatinine 1.54, glucose 90. This is an acute kidney injury, creatinine slowly improving. Urine culture was negative. Blood culture pending, and demonstrating no growth at 48 hours. Patient has a DNR/DNI status. He is currently resting comfortably in bed. On 6 L/min nasal cannula, SpO2 96%. Denies any coughing, sputum production, chest pain. Continues to be intermittently febrile. Hemodynamics are stable. Progress note dated June 28, 2024. 84-year-old male that was seen in consultation yesterday. The patient was apparently having increasing shortness of breath, with increasing oxygen demands. Chest x-ray was consistent with possible fluid overload. N-terminal proBNP was elevated at 12,500. Currently, the patient is seen today in room 370. He is on room air. Saturations are 91%. The patient's procalcitonin level was 2.69. The patient is not receiving any IV fluids. The patient is on IV Rocephin, for possible urinary tract infection. Current labs include a white count 9.9, hemoglobin 10.7, hematocrit 34.2, and a normal platelet count. Sodium 135, potassium 4.3, chlorides 104, CO2 25, BUN 57, creatinine 1.52. Glucose is 116. Calcium 8.6. Albumin is 3.1. Procalcitonin level is 2.69. Blood and urine cultures are currently negative. Chest x-ray is consistent with fluid overload/CHF. Progress note dated June 29, 2024. 84-year-old male seen today in room 370. He is on room air. He is receiving Rocephin. The patient denies any respiratory issues. In fact, he states he feels great. He would like to be discharged if possible. Current laboratory data includes a white count 9.3, hemoglobin 11.1, hematocrit 35.4, and a normal platelet count. PT 24.2, INR 2.4. Sodium 137, potassium 4.3, chlorides 104, CO2 25, BUN 55, creatinine 1.61. Glucose is 159. Objective - Vital Signs Vital signs: Vital Signs Temp 97.6 F 06/29/24 08:12 Pulse 68 06/29/24 10:16 Resp 18 06/29/24 10:16 BP 120/67 06/29/24 08:12 Pulse Ox 96 06/29/24 08:12 FiO2 21 06/23/24 08:36 Intake & Output 06/28/24 06/29/24 06/29/24 18:59 06:59 18:59 Intake Total 642 118 Output Total 700 1250 Balance -58 -1250 118 Weight 89.1 kg Intake: Intake, IV Titration 50 Amount cefTRIAXone 1 gm In 50 Sodium Chloride 0.9% 50 ml @ 100 mls/hr IVPB Q24HR [facility] Rx#:[id number] Oral 592 118 Output: Urine 700 1250 Other: Voiding Method External Catheter External Catheter External Catheter # Bowel Movements 1 1 - Exam No acute distress, oriented 3. Currently on room air. Saturations are 96 %. HEENT examination is grossly unremarkable. Mucous membranes are moist. No oral lesions. Neck supple. Full range of motion. No adenopathy thyromegaly or neck vein distention. Cardiovascular examination reveals regular rhythm rate. S1-S2 normal. No S3 or S4. No discernible murmur noted. Heart rate 68 bpm. Lungs reveal mild scattered rhonchi and crackles. No wheezes. Breath sounds equal bilaterally. Abdomen soft bowel sounds are heard. No masses or tenderness. Extremities are intact. No cyanosis clubbing or edema. Skin reveals chronic venous stasis changes to the lower extremities. Neurologic examination is brief but nonfocal. - Labs CBC & Chem 7: 06/29/24 08:20 06/29/24 08:20 Labs: Abnormal Lab Results - Last 24 Hours (Table) 06/29/24 06/29/24 06/29/24 Range/Units 08:20 08:20 08:20 RBC 3.79 L (4.30-5.90) m/uL Hgb 11.1 L (13.0-17.5) gm/dL Hct 35.4 L (39.0-53.0) % PT 24.2 H (10.0-12.5) sec INR 2.4 H (<1.2) BUN 55 H (9-20) mg/dL Creatinine 1.61 H (0.66-1.25) mg/dL Glucose 159 H (74-99) mg/dL Albumin 3.2 L (3.5-5.0) g/dL Assessment and Plan Assessment: Acute hypoxic respiratory failure, secondary to acute CHF exacerbation and pulmonary edema, underlying pneumonia could not be excluded. Acute febrile illness. Heart failure with preserved ejection fraction. Valvular heart disease, history of moderate mitral stenosis and previous mechanical aortic valve replacement. Permanent pacemaker. Acute kidney injury, improving. Hypertension. History of hyperlipidemia. Chronic obstructive pulmonary disease. Former tobacco dependence. Plan: Plan dated June 28, 2024. The patient is seen today in room 370. The patient is currently on room air. Saturations are 91%. He is not receiving any IV fluids. The patient's N- terminal proBNP was quite elevated. The procalcitonin level was 2.69. The patient continues on Rocephin. Labs, x-rays, and all medications are reviewed. Culture data is thus far negative. We will continue to follow. Prognosis is guarded. Plan dated June 29, 2024. The patient is seen today in room 370. The patient is on room air. The patient is not receiving any IV fluids. His saturations are 96%. The patient's procalcitonin level was elevated. The patient continues on Rocephin. Cultures are currently negative. Labs, x-rays, and medications are reviewed. The patient is feeling much better, and would like to be discharged. Will leave that up to the primary service. The patient is a DO NOT RESUSCITATE patient. Time with Patient: Less than 30
--- NOTE | 2024-06-29 12:20 | P.PN ---
Subjective Patient is seen for follow-up for acute kidney injury. No significant complaints today. Tolerating oral intake. Status post IV fluids. Serum creatinine at 1.6 today. Objective - Vital Signs Vital signs: Vital Signs Temp 97.6 F 06/29/24 08:12 Pulse 74 06/29/24 12:04 Resp 18 06/29/24 12:04 BP 104/49 06/29/24 12:04 Pulse Ox 94 L 06/29/24 12:04 FiO2 21 06/23/24 08:36 Intake & Output 06/28/24 06/29/24 06/29/24 18:59 06:59 18:59 Intake Total 642 118 Output Total 700 1250 Balance -58 -1250 118 Weight 89.1 kg Intake: Intake, IV Titration 50 Amount cefTRIAXone 1 gm In 50 Sodium Chloride 0.9% 50 ml @ 100 mls/hr IVPB Q24HR [facility] Rx#:[id number] Oral 592 118 Output: Urine 700 1250 Other: Voiding Method External Catheter External Catheter External Catheter # Bowel Movements 1 1 - Exam Patient is awake, comfortable, no acute distress. Examination of the heart S1 and S2 Examination of the lungs bilateral breath sounds are heard Abdomen is soft nontender Examination of lower extremities shows no significant edema, chronic skin changes noted. [employer] exam is grossly intact. - Labs CBC & Chem 7: 06/29/24 08:20 06/29/24 08:20 Labs: Abnormal Lab Results - Last 24 Hours (Table) 06/29/24 06/29/24 06/29/24 Range/Units 08:20 08:20 08:20 RBC 3.79 L (4.30-5.90) m/uL Hgb 11.1 L (13.0-17.5) gm/dL Hct 35.4 L (39.0-53.0) % PT 24.2 H (10.0-12.5) sec INR 2.4 H (<1.2) BUN 55 H (9-20) mg/dL Creatinine 1.61 H (0.66-1.25) mg/dL Glucose 159 H (74-99) mg/dL Albumin 3.2 L (3.5-5.0) g/dL Assessment and Plan Assessment: 1. Acute kidney injury secondary to ATN secondary to hypovolemia. Creatinine 2.1 on admission and stable at 1.6 today. UA benign. Limited assessment on kidney ultrasound but no hydronephrosis noted. Creatinine 1.2 dated August. 2. Hyperkalemia secondary to acute kidney injury on Aldactone. Improved. 3. Metabolic acidosis secondary to acute kidney injury and IV fluids. On oral bicarb. 4. Benign hypertension. Controlled. 5. Volume overload. On Lasix. 6. Acute hypoxic respiratory failure. Component of fluid overload. ?PNA. Plan: Continue to maintain good oral intake. Continue with oral diuretics Follow-up as outpatient in 1 to 2 weeks.
--- NOTE | 2024-06-29 15:40 | P.PN ---
Subjective Progress Note Date: 06/29/24 Interval History: This is a pleasant 84 years old male with multiple medical problems. He was admitted on 06/21 for increased frequency of urination with some dysuria. Patient has been dehydrated with evidence of acute kidney injury and hyperkalemia on admission. Patient is followed closely by nephrology team and is treated with IV fluid. Lasix was placed on hold. Creatinine improved down from 1.96 on admission to 1.7 yesterday. Potassium was also better at 4.4 today.. Hemoglobin 10.8. INR 1.7 Chest x-ray: Similar CHF with pulmonary vascular congestion. Possible trace right effusion now. Patient hemodynamically stable /. Patient seen and examined. Blood work done this morning showed WBC 9.06, hemoglobin 10.9, platelet count 110, INR 2.3, sodium 134, potassium 5.3, BUN 34.8, creatinine 1.8. States he feels much better. 06/25. Patient seen and examined. Complaining of generalized weakness, PT and OT consulted 06/26. Patient seen and examined. Patient went to respiratory distress yesterday afternoon, was placed on 6 L of oxygen. Chest x-ray done showed cardiomegaly, pulm vascular congestion and bilateral pleural effusions. CT abdominal pelvis done showed Bibasilar groundglass opacity with air bronchograms, small bilateral pleural effusions, persistent small bilateral renal hypodense masses. States breathing is improved, patient was given extra dose of Lasix IV this morning. . Patient seen and examined. States breathing has improved a lot. Currently on 4 L of oxygen. 06/28. Patient seen and examined. Continues to be afebrile. States breathing has improved. 06/29--patient was seen and examined today. Feeling better. Remained afebrile, remains on room air. PT/OT recommended subacute rehab. Patient agreeable to go to subacute rehab. Assessment and plan: Acute hypoxic respiratory failure: Acute on chronic diastolic CHF: DOMINGO on CKD: Improving Hyperkalemia: Resolved UTI: Artificial aortic valve on Coumadin at home COPD, no acute process Hypertension Hyperlipidemia Osteoarthritis Plan: Nephrology following for acute kidney injury and hyperkalemia, currently on bicarbonate drip and oral bicarbonate, also on p.o. Lasix, monitor renal function. Monitor daily weight and I&O's. Continue amiodarone, metoprolol On Coumadin at home, INR therapeutic at 2.4. Nephrology, pulmonary, infectious disease consulted and following. Rocephin for UTI Continue inhaler/bronchodilator protocol PT and OT following recommend rehab, patient now agreeable DVT prophylaxis: AC PHYSICAL EXAMINATION: GENERAL: The patient is A&O x3, NAD HEENT: EOMI, Sclerae anicteric, Moist Mucous membranes Neck: Supple, Non tender, No JVD CARDIOVASCULAR: S1, S2 present. No murmurs, rubs, or gallops. PULMONARY: Equal breath souds B/L, No wheezing, No crackles. ABDOMEN: Soft, nontender, nondistended, normoactive bowel sounds. No guarding or rebound tenderness. MUSCULOSKELETAL: + edema, No cyanosis. No clubbing. Normal ROM. Intact peripheral pulses. Skin; Warm. No rash. REVIEW OF SYSTEMS: CONSTITUTIONAL: No fever or chills. CARDIOVASCULAR: No chest pain, palpitations or syncope. PULMONARY: No shortness of breath, no cough, sore throat. GASTROINTESTINAL: No nausea, vomiting, diarrhea, abdominal pain. : No Dysuria, urgency, frequency. Extremities: No edema. NEUROLOGICAL: No headaches, no weakness, or numbness Dictation was produced using [employer] dictation software. please excuse any grammatical, word or spelling errors. Objective - Vital Signs Vital signs: Vital Signs Temp 97.6 F 06/29/24 08:12 Pulse 74 06/29/24 14:08 Resp 18 06/29/24 14:08 BP 104/49 06/29/24 12:04 Pulse Ox 94 L 06/29/24 12:04 FiO2 21 06/23/24 08:36 Intake & Output 06/28/24 06/29/24 06/29/24 18:59 06:59 18:59 Intake Total 642 236 Output Total 700 1250 Balance -58 -1250 236 Weight 89.1 kg Intake: Intake, IV Titration 50 Amount cefTRIAXone 1 gm In 50 Sodium Chloride 0.9% 50 ml @ 100 mls/hr IVPB Q24HR [facility] Rx#:[id number] Oral 592 236 Output: Urine 700 1250 Other: Voiding Method External Catheter External Catheter External Catheter # Bowel Movements 1 1 - Labs CBC & Chem 7: 06/29/24 08:20 06/29/24 08:20 Labs: Abnormal Lab Results - Last 24 Hours (Table) 06/29/24 06/29/24 06/29/24 Range/Units 08:20 08:20 08:20 RBC 3.79 L (4.30-5.90) m/uL Hgb 11.1 L (13.0-17.5) gm/dL Hct 35.4 L (39.0-53.0) % PT 24.2 H (10.0-12.5) sec INR 2.4 H (<1.2) BUN 55 H (9-20) mg/dL Creatinine 1.61 H (0.66-1.25) mg/dL Glucose 159 H (74-99) mg/dL Albumin 3.2 L (3.5-5.0) g/dL
[2024-06-29] MEDS: WARFARIN 1 MG TAB PO ONE (17:11)
--- NOTE | 2024-06-29 19:09 | P.PN ---
Subjective Progress Note Date: 06/29/24 Principal diagnosis: Reason for follow-up is fever Patient is a 84-year-old male with a past medical history significant for COPD hypertension hyperlipidemia osteoarthritis prostate disorder patient presenting with dysuria and frequent urination did have a fever prompting this consultation. On today's evaluation that is 06/29/2024,the patient denies any fever or any chills, patient is breathing comfortably on room air, the patient denies chest pain shortness of breath and no significant cough, patient denies abdominal pain, no nausea vomiting or diarrhea. Patient white count is 9.3 creatinine is 1.61 Objective - Vital Signs Vital signs: Vital Signs Temp 97.8 F 06/29/24 03:15 Pulse 60 06/29/24 03:15 Resp 20 06/29/24 03:15 BP 145/69 06/29/24 03:15 Pulse Ox 92 L 06/29/24 03:15 FiO2 21 06/23/24 08:36 Intake & Output 06/28/24 06/29/24 06/29/24 18:59 06:59 18:59 Intake Total 642 Output Total 700 1250 Balance -58 -1250 Weight 89.1 kg Intake: Intake, IV Titration 50 Amount cefTRIAXone 1 gm In 50 Sodium Chloride 0.9% 50 ml @ 100 mls/hr IVPB Q24HR [facility] Rx#:[id number] Oral 592 Output: Urine 700 1250 Other: Voiding Method External Catheter External Catheter # Bowel Movements 1 - Exam GENERAL DESCRIPTION: An elderly male lying in bed in no distress RESPIRATORY SYSTEM: Unlabored breathing , decreased breath sounds at bases HEART: S1 S2 regular rate and rhythm , ABDOMEN: Soft , no tenderness EXTREMITIES: No edema feet - Labs CBC & Chem 7: 06/29/24 08:20 06/29/24 08:20 Labs: Abnormal Lab Results - Last 24 Hours (Table) 06/28/24 06/28/24 Range/Units 09:19 09:19 RBC 3.68 L (4.30-5.90) m/uL Hgb 10.7 L (13.0-17.5) gm/dL Hct 34.2 L (39.0-53.0) % Neutrophils # 7.9 H (1.3-7.7) k/uL Lymphocytes # 0.9 L (1.0-4.8) k/uL Sodium 135 L (137-145) mmol/L BUN 57 H (9-20) mg/dL Creatinine 1.52 H (0.66-1.25) mg/dL Glucose 116 H (74-99) mg/dL Albumin 3.1 L (3.5-5.0) g/dL Assessment and Plan (1) Fever Current Visit: Yes Status: Acute Code(s): R50.9 - FEVER, UNSPECIFIED SNO MED Code(s): 080667259 (2) UTI (urinary tract infection) Current Visit: No Status: Acute Code(s): N39.0 - URINARY TRACT INFECTION, SITE NOT SPECIFIED SNOMED Code(s): 20509246 Plan: 1patient with a fever in this patient with initial presentation to the hospital with some urinary frequency and burning with initial concern for possible UTI however patient UA shows mostly hematuria and no pyuria patient did have improvement of his fever pattern patient also have CT of abdominal pelvis with oral contrast did not show any acute intra-abdominal pathology there was concern for possible pulmonary infiltrate, Question related to the fluid versus atypical infection he did tested negative for COVID RSV and influenza 2patient did have resolution of his fever, patient did have elevated procalcitonin 2.69 we will continue with Rocephin and monitor clinical course closely Dictation was produced using [employer] dictation software. please excuse any grammatical, word or spelling errors. Time with Patient: Less than 30
[2024-06-30] MEDS: SODIUM BICARBONATE TAB 650 MG TAB PO SCH (08:04)
[2024-06-30 08:47] LABS: INR 2.1 (<1.2)
--- NOTE | 2024-06-30 10:21 | P.PN ---
Subjective Progress Note Date: 06/30/24 Principal diagnosis: Shortness of breath. Patient is an 84-year-old white male with past medical history significant for COPD, hyperlipidemia, hypertension, valvular heart disease and previous mechanical aortic valve replacement, pacemaker, and prostate disorder. Patient originally presented to the emergency department back on 06/21/2024 primarily with urinary complaints; however, patient denies this. We were consulted yesterday, as the patient has had increased oxygen demands. He has been intermittently febrile, with a Tmax of 102.8 F. Procalcitonin level elevated at 2.69 most recent chest x-ray showing diffuse bilateral infiltrates, blunting of costophrenic angles, cardiomegaly. NT proBNP was elevated at 12,500. A CT of the abdomen and pelvis Showed bibasilar groundglass opacity with air bronchograms, concerning for atypical pneumonia. There was small bilateral pleural effusions. Viral screen negative for influenza, RSV, COVID. Patient is currently receiving empiric antibiotic coverage in the form of Rocephin. CBC from yesterday: WBC count 11.2, hemoglobin 10.7, hematocrit 33.8, platelets 134. BMP from yesterday: Sodium 134, potassium 4.4, chloride 106, serum bicarb 23, BUN 47, creatinine 1.54, glucose 90. This is an acute kidney injury, creatinine slowly improving. Urine culture was negative. Blood culture pending, and demonstrating no growth at 48 hours. Patient has a DNR/DNI status. He is currently resting comfortably in bed. On 6 L/min nasal cannula, SpO2 96%. Denies any coughing, sputum production, chest pain. Continues to be intermittently febrile. Hemodynamics are stable. Progress note dated June 28, 2024. 84-year-old male that was seen in consultation yesterday. The patient was apparently having increasing shortness of breath, with increasing oxygen demands. Chest x-ray was consistent with possible fluid overload. N-terminal proBNP was elevated at 12,500. Currently, the patient is seen today in room 370. He is on room air. Saturations are 91%. The patient's procalcitonin level was 2.69. The patient is not receiving any IV fluids. The patient is on IV Rocephin, for possible urinary tract infection. Current labs include a white count 9.9, hemoglobin 10.7, hematocrit 34.2, and a normal platelet count. Sodium 135, potassium 4.3, chlorides 104, CO2 25, BUN 57, creatinine 1.52. Glucose is 116. Calcium 8.6. Albumin is 3.1. Procalcitonin level is 2.69. Blood and urine cultures are currently negative. Chest x-ray is consistent with fluid overload/CHF. Progress note dated June 29, 2024. 84-year-old male seen today in room 370. He is on room air. He is receiving Rocephin. The patient denies any respiratory issues. In fact, he states he feels great. He would like to be discharged if possible. Current laboratory data includes a white count 9.3, hemoglobin 11.1, hematocrit 35.4, and a normal platelet count. PT 24.2, INR 2.4. Sodium 137, potassium 4.3, chlorides 104, CO2 25, BUN 55, creatinine 1.61. Glucose is 159. Progress note dated June 30, 2024. 84-year-old male seen today in room 370. He is on room air. No IV fluids. The patient will be discharged, told likely early next week, to a rehabilitation facility. Clinically, he is doing well. He is awake and alert. He denies any chest pain or chest discomfort. He is not having any shortness of breath, cough, wheezing, or any pulmonary complaints for that matter. Laboratory data today includes a PT of 21, and INR of 2.1. Objective - Vital Signs Vital signs: Vital Signs Temp 97.6 F 06/30/24 04:00 Pulse 60 06/30/24 09:43 Resp 18 06/30/24 09:43 BP 121/60 06/30/24 08:00 Pulse Ox 97 06/30/24 08:00 FiO2 21 06/23/24 08:36 Intake & Output 06/29/24 06/30/24 06/30/24 18:59 06:59 18:59 Intake Total 736 118 Balance 736 118 Weight 81.6 kg Intake: Oral 736 118 Other: Voiding Method External Catheter External Catheter External Catheter # Bowel Movements 1 1 - Exam No acute distress, oriented 3. Currently on room air. Saturations are 97 %. HEENT examination is grossly unremarkable. Mucous membranes are moist. No oral lesions. Neck supple. Full range of motion. No adenopathy thyromegaly or neck vein distention. Cardiovascular examination reveals regular rhythm rate. S1-S2 normal. No S3 or S4. No discernible murmur noted. Heart rate 60 bpm. Lungs reveal mild scattered rhonchi and crackles. No wheezes. Breath sounds equal bilaterally. Abdomen soft bowel sounds are heard. No masses or tenderness. Extremities are intact. No cyanosis clubbing or edema. Skin reveals chronic venous stasis changes to the lower extremities. Neurologic examination is brief but nonfocal. - Labs CBC & Chem 7: 06/29/24 08:20 06/29/24 08:20 Labs: Abnormal Lab Results - Last 24 Hours (Table) 06/30/24 Range/Units 07:19 PT 21.0 H (10.0-12.5) sec INR 2.1 H (<1.2) Microbiology - Last 24 Hours (Table) 06/23/24 21:08 Blood Culture - Final Blood Assessment and Plan Assessment: Acute hypoxic respiratory failure, secondary to acute CHF exacerbation and pulmonary edema, underlying pneumonia could not be excluded. Acute febrile illness. Heart failure with preserved ejection fraction. Valvular heart disease, history of moderate mitral stenosis and previous mechanical aortic valve replacement. Permanent pacemaker. Acute kidney injury, improving. Hypertension. History of hyperlipidemia. Chronic obstructive pulmonary disease. Former tobacco dependence. Plan: Plan dated June 28, 2024. The patient is seen today in room 370. The patient is currently on room air. Saturations are 91%. He is not receiving any IV fluids. The patient's N- terminal proBNP was quite elevated. The procalcitonin level was 2.69. The patient continues on Rocephin. Labs, x-rays, and all medications are reviewed. Culture data is thus far negative. We will continue to follow. Prognosis is guarded. Plan dated June 29, 2024. The patient is seen today in room 370. The patient is on room air. The patient is not receiving any IV fluids. His saturations are 96%. The patient's proca lcitonin level was elevated. The patient continues on Rocephin. Cultures are currently negative. Labs, x-rays, and medications are reviewed. The patient is feeling much better, and would like to be discharged. Will leave that up to the primary service. The patient is a DO NOT RESUSCITATE patient. Plan dated June 30, 2024. The patient is seen today in room 370. He is on room air. He is not receiving any IV fluids. He is awake and alert. His saturations are in the high 90s. The patient is a DO NOT RESUSCITATE patient. The patient is apparently waiting to be discharged to a rehab facility, which would not likely be before Monday. We will continue to follow. Prognosis is guarded. Labs, x-rays, and all medications are reviewed. Time with Patient: Less than 30
--- NOTE | 2024-06-30 11:32 | P.PN ---
Subjective Patient is seen for follow-up for acute kidney injury. No significant complaints today. Tolerating oral intake. Status post IV fluids. Serum creatinine at 1.6 yesterday. Objective - Vital Signs Vital signs: Vital Signs Temp 97.6 F 06/30/24 04:00 Pulse 60 06/30/24 09:43 Resp 18 06/30/24 09:43 BP 121/60 06/30/24 08:00 Pulse Ox 97 06/30/24 08:00 FiO2 21 06/23/24 08:36 Intake & Output 06/29/24 06/30/24 06/30/24 18:59 06:59 18:59 Intake Total 736 118 Balance 736 118 Weight 81.6 kg Intake: Oral 736 118 Other: Voiding Method External Catheter External Catheter External Catheter # Bowel Movements 1 1 - Exam Patient is awake, comfortable, no acute distress. Examination of the heart S1 and S2 Examination of the lungs bilateral breath sounds are heard Abdomen is soft nontender Examination of lower extremities shows no significant edema, chronic skin changes noted. TIP FINISHER exam is grossly intact. - Labs CBC & Chem 7: 06/29/24 08:20 06/29/24 08:20 Labs: Abnormal Lab Results - Last 24 Hours (Table) 06/30/24 Range/Units 07:19 PT 21.0 H (10.0-12.5) sec INR 2.1 H (<1.2) Microbiology - Last 24 Hours (Table) 06/23/24 21:08 Blood Culture - Final Blood Assessment and Plan Assessment: 1. Acute kidney injury secondary to ATN secondary to hypovolemia. Creatinine 2.1 on admission and stable at 1.6 yesterday. UA benign. Limited assessment on kidney ultrasound but no hydronephrosis noted. Creatinine 1.2 dated September 25, 2023. 2. Hyperkalemia secondary to acute kidney injury on Aldactone. Improved. 3. Metabolic acidosis secondary to acute kidney injury and IV fluids. On oral bicarb. 4. Benign hypertension. Controlled. 5. Volume overload. On Lasix. 6. Acute hypoxic respiratory failure. Component of fluid overload. ?PNA. Plan: Continue to maintain good oral intake. Continue with oral diuretics Follow-up as outpatient in 1 to 2 weeks.
--- NOTE | 2024-06-30 14:47 | P.PN ---
Subjective Progress Note Date: 06/30/24 Interval History: This is a pleasant 84 years old male with multiple medical problems. He was admitted on 06/21 for increased frequency of urination with some dysuria. Patient has been dehydrated with evidence of acute kidney injury and hyperkalemia on admission. Patient is followed closely by nephrology team and is treated with IV fluid. Lasix was placed on hold. Creatinine improved down from 1.96 on admission to 1.7 yesterday. Potassium was also better at 4.4 today.. Hemoglobin 10.8. INR 1.7 Chest x-ray: Similar CHF with pulmonary vascular congestion. Possible trace right effusion now. Patient hemodynamically stable /. Patient seen and examined. Blood work done this morning showed WBC 9.06, hemoglobin 10.9, platelet count 110, INR 2.3, sodium 134, potassium 5.3, BUN 34.8, creatinine 1.8. States he feels much better. 06/25. Patient seen and examined. Complaining of generalized weakness, PT and OT consulted 06/26. Patient seen and examined. Patient went to respiratory distress yesterday afternoon, was placed on 6 L of oxygen. Chest x-ray done showed cardiomegaly, pulm vascular congestion and bilateral pleural effusions. CT abdominal pelvis done showed Bibasilar groundglass opacity with air bronchograms, small bilateral pleural effusions, persistent small bilateral renal hypodense masses. States breathing is improved, patient was given extra dose of Lasix IV this morning. . Patient seen and examined. States breathing has improved a lot. Currently on 4 L of oxygen. 06/28. Patient seen and examined. Continues to be afebrile. States breathing has improved. 06/29--patient was seen and examined today. Feeling better. Remained afebrile, remains on room air. PT/OT recommended subacute rehab. Patient agreeable to go to subacute rehab. 06/30--patient was seen and examined today. Remains on room air. Feeling better. Denied any shortness of breath, cough, chest pain. INR 2.1. Currently on Coumadin pharmacy to dose for mechanical aortic valve. Awaiting placement to subacute rehab. Assessment and plan: Acute hypoxic respiratory failure: Acute on chronic diastolic CHF: DOMINGO on CKD: Improving Hyperkalemia: Resolved UTI: Mechanical aortic valve on Coumadin at home COPD, no acute process Hypertension Hyperlipidemia Osteoarthritis Plan: Nephrology following for acute kidney injury and hyperkalemia, currently on bicarbonate drip and oral bicarbonate, also on p.o. Lasix, monitor renal function. Monitor daily weight and I&O's. Continue amiodarone, metoprolol On Coumadin at home, INR therapeutic at 2.4. For mechanical aortic valve. Nephrology, pulmonary, infectious disease consulted and following. Rocephin for UTI Continue inhaler/bronchodilator protocol PT and OT following recommend rehab, patient now agreeable DVT prophylaxis: AC--- Coumadin PHYSICAL EXAMINATION: GENERAL: The patient is A&O x3, NAD HEENT: EOMI, Sclerae anicteric, Moist Mucous membranes Neck: Supple, Non tender, No JVD CARDIOVASCULAR: S1, S2 present. No murmurs, rubs, or gallops. PULMONARY: Equal breath souds B/L, No wheezing, No crackles. ABDOMEN: Soft, nontender, nondistended, normoactive bowel sounds. No guarding or rebound tenderness. MUSCULOSKELETAL: + edema, No cyanosis. No clubbing. Normal ROM. Intact peripheral pulses. Skin; Warm. No rash. REVIEW OF SYSTEMS: CONSTITUTIONAL: No fever or chills. CARDIOVASCULAR: No chest pain, palpitations or syncope. PULMONARY: No shortness of breath, no cough, sore throat. GASTROINTESTINAL: No nausea, vomiting, diarrhea, abdominal pain. : No Dysuria, urgency, frequency. Extremities: No edema. NEUROLOGICAL: No headaches, no weakness, or numbness Dictation was produced using [employer] dictation software. please excuse any grammatical, word or spelling errors. Objective - Vital Signs Vital signs: Vital Signs Temp 97.6 F 06/30/24 04:00 Pulse 58 L 06/30/24 14:30 Resp 18 06/30/24 14:30 BP 115/69 06/30/24 12:05 Pulse Ox 97 06/30/24 12:05 FiO2 21 06/23/24 08:36 Intake & Output 06/29/24 06/30/24 06/30/24 18:59 06:59 18:59 Intake Total 736 268 Output Total 1200 Balance 736 -932 Weight 81.6 kg Intake: Oral 736 268 Output: Urine 1200 Other: Voiding Method External Catheter External Catheter External Catheter # Bowel Movements 1 1 - Labs CBC & Chem 7: 06/29/24 08:20 06/29/24 08:20 Labs: Abnormal Lab Results - Last 24 Hours (Table) 06/30/24 Range/Units 07:19 PT 21.0 H (10.0-12.5) sec INR 2.1 H (<1.2) Microbiology - Last 24 Hours (Table) 06/23/24 21:08 Blood Culture - Final Blood
[2024-06-30] MEDS: WARFARIN 5 MG TAB PO ONE (17:15)
--- NOTE | 2024-06-30 18:10 | P.PN ---
Subjective Progress Note Date: 06/30/24 Principal diagnosis: Reason for follow-up is fever Patient is a 84-year-old male with a past medical history significant for COPD hypertension hyperlipidemia osteoarthritis prostate disorder patient presenting with dysuria and frequent urination did have a fever prompting this consultation. On today's evaluation that is 06/30/2024,the patient remains to be afebrile, patient is on room air not requiring supplemental oxygen and denies any shortness of breath no chest pain or cough.Patient denies having any nausea or vomiting, no abdominal pain and no diarrhea has been reported, mention feeling better. Patient did have a INR of 2.1 no CBC was done today Objective - Vital Signs Vital signs: Vital Signs Temp 97.6 F 06/30/24 04:00 Pulse 60 06/30/24 17:13 Resp 18 06/30/24 17:13 BP 128/69 06/30/24 17:13 Pulse Ox 97 06/30/24 17:13 FiO2 21 06/23/24 08:36 Intake & Output 06/29/24 06/30/24 06/30/24 18:59 06:59 18:59 Intake Total 736 268 Output Total 1200 Balance 736 -932 Weight 81.6 kg Intake: Oral 736 268 Output: Urine 1200 Other: Voiding Method External Catheter External Catheter External Catheter # Bowel Movements 1 1 - Exam GENERAL DESCRIPTION: An elderly male lying in bed in no distress RESPIRATORY SYSTEM: Unlabored breathing , decreased breath sounds at bases HEART: S1 S2 regular rate and rhythm , ABDOMEN: Soft , no tenderness EXTREMITIES: No edema feet - Labs CBC & Chem 7: 06/29/24 08:20 06/29/24 08:20 Labs: Abnormal Lab Results - Last 24 Hours (Table) 06/30/24 Range/Units 07:19 PT 21.0 H (10.0-12.5) sec INR 2.1 H (<1.2) Microbiology - Last 24 Hours (Table) 06/23/24 21:08 Blood Culture - Final Blood Assessment and Plan (1) Fever Current Visit: Yes Status: Acute Code(s): R50.9 - FEVER, UNSPECIFIED SNOMED Code(s): 936635066 (2) UTI (urinary tract infection) Current Visit: No Status: Acute Code(s): N39.0 - URINARY TRACT INFECTION, SITE NOT SPECIFIED SNOMED Code(s): 84394961 Plan: 1patient with a fever in this patient with initial presentation to the hospital with some urinary frequency and burning with initial concern for possible UTI however patient UA shows mostly hematuria and no pyuria patient did have improvement of his fever pattern patient also have CT of abdominal pelvis with oral contrast did not show any acute intra-abdominal pathology there was concern for possible pulmonary infiltrate, Question related to the fluid versus atypical infection he did tested negative for COVID RSV and influenza 2patient did have resolution of his fever the patient white count has normalized, patient will continue with Rocephin and monitor clinical course closely Dictation was produced using [employer] dictation software. please excuse any grammatical, word or spelling errors. Time with Patient: Less than 30
[2024-07-01 08:17] LABS: INR 1.6 (<1.2); Prothrombin Time 16.6 sec (10.0-12.5)
--- NOTE | 2024-07-01 10:41 | P.PN ---
Subjective Progress Note Date: 07/01/24 Principal diagnosis: Shortness of breath. Patient is an 84-year-old white male with past medical history significant for COPD, hyperlipidemia, hypertension, valvular heart disease and previous mechanical aortic valve replacement, pacemaker, and prostate disorder. Patient originally presented to the emergency department back on 06/21/2024 primarily with urinary complaints; however, patient denies this. We were consulted yesterday, as the patient has had increased oxygen demands. He has been intermittently febrile, with a Tmax of 102.8 F. Procalcitonin level elevated at 2.69 most recent chest x-ray showing diffuse bilateral infiltrates, blunting of costophrenic angles, cardiomegaly. NT proBNP was elevated at 12,500. A CT of the abdomen and pelvis Showed bibasilar groundglass opacity with air bronchograms, concerning for atypical pneumonia. There was small bilateral pleural effusions. Viral screen negative for influenza, RSV, COVID. Patient is currently receiving empiric antibiotic coverage in the form of Rocephin. CBC from yesterday: WBC count 11.2, hemoglobin 10.7, hematocrit 33.8, platelets 134. BMP from yesterday: Sodium 134, potassium 4.4, chloride 106, serum bicarb 23, BUN 47, creatinine 1.54, glucose 90. This is an acute kidney injury, creatinine slowly improving. Urine culture was negative. Blood culture pending, and demonstrating no growth at 48 hours. Patient has a DNR/DNI status. He is currently resting comfortably in bed. On 6 L/min nasal cannula, SpO2 96%. Denies any coughing, sputum production, chest pain. Continues to be intermittently febrile. Hemodynamics are stable. Progress note dated June 28, 2024. 84-year-old male that was seen in consultation yesterday. The patient was apparently having increasing shortness of breath, with increasing oxygen demands. Chest x-ray was consistent with possible fluid overload. N-terminal proBNP was elevated at 12,500. Currently, the patient is seen today in room 370. He is on room air. Saturations are 91%. The patient's procalcitonin level was 2.69. The patient is not receiving any IV fluids. The patient is on IV Rocephin, for possible urinary tract infection. Current labs include a white count 9.9, hemoglobin 10.7, hematocrit 34.2, and a normal platelet count. Sodium 135, potassium 4.3, chlorides 104, CO2 25, BUN 57, creatinine 1.52. Glucose is 116. Calcium 8.6. Albumin is 3.1. Procalcitonin level is 2.69. Blood and urine cultures are currently negative. Chest x-ray is consistent with fluid overload/CHF. Progress note dated June 29, 2024. 84-year-old male seen today in room 370. He is on room air. He is receiving Rocephin. The patient denies any respiratory issues. In fact, he states he feels great. He would like to be discharged if possible. Current laboratory data includes a white count 9.3, hemoglobin 11.1, hematocrit 35.4, and a normal platelet count. PT 24.2, INR 2.4. Sodium 137, potassium 4.3, chlorides 104, CO2 25, BUN 55, creatinine 1.61. Glucose is 159. Progress note dated June 30, 2024. 84-year-old male seen today in room 370. He is on room air. No IV fluids. The patient will be discharged, told likely early next week, to a rehabilitation facility. Clinically, he is doing well. He is awake and alert. He denies any chest pain or chest discomfort. He is not having any shortness of breath, cough, wheezing, or any pulmonary complaints for that matter. Laboratory data today includes a PT of 21, and INR of 2.1. Progress note dated July 01, 2024. 84-year-old male seen today in room 370. The patient is currently on room air. He is not requiring any IV fluids. He denies any shortness of breath, cough, wheezing, chest tightness, or phlegm production. He in fact denies all respiratory issues at this time. The patient is hopefully waiting for discharge. No new laboratory data today other than a PT of 16.6, and INR of 1.6. Objective - Vital Signs Vital signs: Vital Signs Temp 97.9 F 07/01/24 08:15 Pulse 61 07/01/24 08:15 Resp 17 07/01/24 08:15 BP 130/69 07/01/24 08:15 Pulse Ox 96 07/01/24 08:15 FiO2 21 06/23/24 08:36 Intake & Output 06/30/24 07/01/24 07/01/24 18:59 06:59 18:59 Intake Total 448 360 Output Total 1200 500 Balance -752 -500 360 Weight 79 kg Intake: Oral 448 360 Output: Urine 1200 500 Other: Voiding Method External Catheter External Catheter External Catheter - Exam No acute distress, oriented 3. Currently on room air. Saturations are 96 %. HEENT examination is grossly unremarkable. Mucous membranes are moist. No oral lesions. Neck supple. Full range of motion. No adenopathy thyromegaly or neck vein distention. Cardiovascular examination reveals regular rhythm rate. S1-S2 normal. No S3 or S4. No discernible murmur noted. Heart rate 61 bpm. Lungs reveal mild scattered rhonchi and crackles. No wheezes. Breath sounds equal bilaterally. Abdomen soft bowel sounds are heard. No masses or tenderness. Extremities are intact. No cyanosis clubbing or edema. Skin reveals chronic venous stasis changes to the lower extremities. Neurologic examination is brief but nonfocal. - Labs CBC & Chem 7: 06/29/24 08:20 06/29/24 08:20 Labs: Abnormal Lab Results - Last 24 Hours (Table) 07/01/24 Range/Units 07:38 PT 16.6 H (10.0-12.5) sec INR 1.6 H (<1.2) Assessment and Plan Assessment: Acute hypoxic respiratory failure, secondary to acute CHF exacerbation and pulmonary edema, underlying pneumonia could not be excluded. Acute febrile illness. Heart failure with preserved ejection fraction. Valvular heart disease, history of moderate mitral stenosis and previous mechanical aortic valve replacement. Permanent pacemaker. Acute kidney injury, improving. Hypertension. History of hyperlipidemia. Chronic obstructive pulmonary disease. Former tobacco dependence. Plan: Plan dated June 28, 2024. The patient is seen today in room 370. The patient is currently on room air. Saturations are 91%. He is not receiving any IV fluids. The patient's N- terminal proBNP was quite elevated. The procalcitonin level was 2.69. The patient continues on Rocephin. Labs, x-rays, and all medications are reviewed. Culture data is thus far negative. We will continue to follow. Prognosis is guarded. Plan dated June 29, 2024. The patient is seen today in room 370. The patient is on room air. The patient is not receiving any IV fluids. His saturations are 96%. The patient's procalcitonin level was elevated. The patient continues on Rocephin. Cultures are currently negative. Labs, x-rays, and medications are reviewed. The patient is feeling much better, and would like to be discharged. Will leave that up to the primary service. The patient is a DO NOT RESUSCITATE patient. Plan dated June 30, 2024. The patient is seen today in room 370. He is on room air. He is not receiving any IV fluids. He is awake and alert. His saturations are in the high 90s. The patient is a DO NOT RESUSCITATE patient. The patient is apparently waiting to be discharged to a rehab facility, which would not likely be before Monday. We will continue to follow. Prognosis is guarded. Labs, x-rays, and all medications are reviewed. Plan dated July 01, 2024. 84-year-old male seen today in room 370. He is a DO NOT RESUSCITATE patient. He is awake and alert. He denies any shortness of breath, cough, wheezing, chest tightness, or phlegm production. The patient is hopefully going to be discharged tomorrow. The patient is not receiving any IV fluids. He is currently on room air. Labs, x-rays, and all medications are reviewed. The patient continues on Rocephin. Prognosis is guarded. Time with Patient: Less than 30
[2024-07-01 11:17] LABS: African American GFR (CKD) 41 (>60 ml/min/1.73 sqM); Anion Gap 5 mmol/L; Blood Urea Nitrogen 57 mg/dL (9-20); Calcium 8.5 mg/dL (8.4-10.2); Carbon Dioxide 27 mmol/L (22-30); Chloride 104 mmol/L (98-107); Glucose 139 mg/dL (74-99); Non-African American GFR(CKD) 35 (>60 ml/min/1.73 sqM); Potassium 4.5 mmol/L (3.5-5.1); Sodium 136 mmol/L (137-145)
--- NOTE | 2024-07-01 14:24 | P.PN ---
Subjective Patient is seen for follow-up for acute kidney injury. No significant complaints today. Tolerating oral intake. Status post IV fluids. Serum creatinine at 1.7 today. Objective - Vital Signs Vital signs: Vital Signs Temp 97.9 F 07/01/24 08:15 Pulse 62 07/01/24 12:00 Resp 17 07/01/24 12:00 BP 110/66 07/01/24 12:00 Pulse Ox 97 07/01/24 12:00 FiO2 21 06/23/24 08:36 Intake & Output 06/30/24 07/01/24 07/01/24 18:59 06:59 18:59 Intake Total 448 360 Output Total 1200 500 Balance -752 -500 360 Weight 79 kg Intake: Oral 448 360 Output: Urine 1200 500 Other: Voiding Method External Catheter External Catheter External Catheter - Exam Patient is awake, comfortable, no acute distress. Examination of the heart S1 and S2 Examination of the lungs bilateral breath sounds are heard Abdomen is soft nontender Examination of lower extremities shows no significant edema, chronic skin changes noted. DRY CANS BACK TENDER exam is grossly intact. - Labs CBC & Chem 7: 06/29/24 08:20 07/01/24 10:05 Labs: Abnormal Lab Results - Last 24 Hours (Table) 07/01/24 07/01/24 Range/Units 07:38 10:05 PT 16.6 H (10.0-12.5) sec INR 1.6 H (<1.2) Sodium 136 L (137-145) mmol/L BUN 57 H (9-20) mg/dL Creatinine 1.74 H (0.66-1.25) mg/dL Glucose 139 H (74-99) mg/dL Assessment and Plan Assessment: 1. Acute kidney injury secondary to ATN secondary to hypovolemia. Creatinine 2.1 on admission and staying around 1.5-1.7 now. UA benign. Limited assessment on kidney ultrasound but no hydronephrosis noted. Creatinine 1.2 dated September 25, 2023. 2. Hyperkalemia secondary to acute kidney injury on Aldactone. Improved. 3. Metabolic acidosis secondary to acute kidney injury and IV fluids. On oral bicarb. 4. Benign hypertension. Controlled. 5. Volume overload. On Lasix. 6. Acute hypoxic respiratory failure. Component of fluid overload. ?PNA. Plan: Continue to maintain good oral intake. Continue with oral diuretics, decrease dose if serum creatinine is higher tomorrow. Follow-up as outpatient in 1 to 2 weeks.
--- NOTE | 2024-07-01 16:30 | P.PN ---
Subjective Progress Note Date: 07/01/24 Interval History: This is a pleasant 84 years old male with multiple medical problems. He was admitted on 06/21 for increased frequency of urination with some dysuria. Patient has been dehydrated with evidence of acute kidney injury and hyperkalemia on admission. Patient is followed closely by nephrology team and is treated with IV fluid. Lasix was placed on hold. Creatinine improved down from 1.96 on admission to 1.7 yesterday. Potassium was also better at 4.4 today.. Hemoglobin 10.8. INR 1.7 Chest x-ray: Similar CHF with pulmonary vascular congestion. Possible trace right effusion now. Patient hemodynamically stable /. Patient seen and examined. Blood work done this morning showed WBC 9.06, hemoglobin 10.9, platelet count 110, INR 2.3, sodium 134, potassium 5.3, BUN 34.8, creatinine 1.8. States he feels much better. 06/25. Patient seen and examined. Complaining of generalized weakness, PT and OT consulted 06/26. Patient seen and examined. Patient went to respiratory distress yesterday afternoon, was placed on 6 L of oxygen. Chest x-ray done showed cardiomegaly, pulm vascular congestion and bilateral pleural effusions. CT abdominal pelvis done showed Bibasilar groundglass opacity with air bronchograms, small bilateral pleural effusions, persistent small bilateral renal hypodense masses. States breathing is improved, patient was given extra dose of Lasix IV this morning. . Patient seen and examined. States breathing has improved a lot. Currently on 4 L of oxygen. 06/28. Patient seen and examined. Continues to be afebrile. States breathing has improved. 06/29--patient was seen and examined today. Feeling better. Remained afebrile, remains on room air. PT/OT recommended subacute rehab. Patient agreeable to go to subacute rehab. 06/30--patient was seen and examined today. Remains on room air. Feeling better. Denied any shortness of breath, cough, chest pain. INR 2.1. Currently on Coumadin pharmacy to dose for mechanical aortic valve. Awaiting placement to subacute rehab. 07/01--patient was seen and examined today. Currently on room air. No issues overnight. Patient's INR is low 1.6, creatinine is elevated 1.76. Patient on Coumadin pharmacy to dose Assessment and plan: Acute hypoxic respiratory failure: Acute on chronic diastolic CHF: DOMINGO on CKD: Improving Hyperkalemia: Resolved UTI: Mechanical aortic valve on Coumadin at home COPD, no acute process Hypertension Hyperlipidemia Osteoarthritis Plan: Nephrology following for acute kidney injury and hyperkalemia, currently on bicarbonate drip and oral bicarbonate, also on p.o. Lasix, monitor renal function. Monitor daily weight and I&O's. Continue amiodarone, metoprolol On Coumadin at home, continue Coumadin pharmacy to dose, monitor INR. Nephrology, pulmonary, infectious disease consulted and following. Rocephin for UTI Continue inhaler/bronchodilator protocol PT and OT following recommend rehab, patient now agreeable DVT prophylaxis: AC--- Coumadin PHYSICAL EXAMINATION: GENERAL: The patient is A&O x3, NAD HEENT: EOMI, Sclerae anicteric, Moist Mucous membranes Neck: Supple, Non tender, No JVD CARDIOVASCULAR: S1, S2 present. No murmurs, rubs, or gallops. PULMONARY: Equal breath souds B/L, No wheezing, No crackles. ABDOMEN: Soft, nontender, nondistended, normoactive bowel sounds. No guarding or rebound tenderness. MUSCULOSKELETAL: + edema, No cyanosis. No clubbing. Normal ROM. Intact peripheral pulses. Skin; Warm. No rash. REVIEW OF SYSTEMS: CONSTITUTIONAL: No fever or chills. CARDIOVASCULAR: No chest pain, palpitations or syncope. PULMONARY: No shortness of breath, no cough, sore throat. GASTROINTESTINAL: No nausea, vomiting, diarrhea, abdominal pain. : No Dysuria, urgency, frequency. Extremities: No edema. NEUROLOGICAL: No headaches, no weakness, or numbness Dictation was produced using [email or web address] software. please excuse any grammatical, word or spelling errors. Objective - Vital Signs Vital signs: Vital Signs Temp 98 F 07/01/24 16:00 Pulse 63 07/01/24 16:00 Resp 17 07/01/24 16:00 BP 115/54 07/01/24 16:00 Pulse Ox 97 07/01/24 16:00 FiO2 21 06/23/24 08:36 Intake & Output 06/30/24 07/01/24 07/01/24 18:59 06:59 18:59 Intake Total 448 900 Output Total 1200 500 Balance -752 500 900 Weight 79 kg Intake: Oral 448 900 Output: Urine 1200 500 Other: Voiding Method External Catheter External Catheter External Catheter - Labs CBC & Chem 7: 06/29/24 08:20 07/01/24 10:05 Labs: Abnormal Lab Results - Last 24 Hours (Table) 07/01/24 07/01/24 Range/Units 07:38 10:05 PT 16.6 H (10.0-12.5) sec INR 1.6 H (<1.2) Sodium 136 L (137-145) mmol/L BUN 57 H (9-20) mg/dL Creatinine 1.74 H (0.66-1.25) mg/dL Glucose 139 H (74-99) mg/dL
[2024-07-01] MEDS: WARFARIN 5 MG TAB PO ONE (17:06)
--- NOTE | 2024-07-01 21:22 | P.PN ---
Subjective Progress Note Date: 07/01/24 Principal diagnosis: Reason for follow-up is fever Patient is a 84-year-old male with a past medical history significant for COPD hypertension hyperlipidemia osteoarthritis prostate disorder patient presenting with dysuria and frequent urination did have a fever prompting this consultation. On today's evaluation that is 07/01/2024, the patient continues to be afebrile, the patient is on room air and breathing comfortably, the Pt denies having any chest pain or cough, the patient denies having any abdominal pain no vomiting or any diarrhea has been reported by the nursing staff . Patient did have a creatinine 1.74 no CBC was done today blood and urine culture have been negative Objective - Vital Signs Vital signs: Vital Signs Temp 97.9 F 07/01/24 08:15 Pulse 62 07/01/24 12:00 Resp 17 07/01/24 12:00 BP 110/66 07/01/24 12:00 Pulse Ox 97 07/01/24 12:00 FiO2 21 06/23/24 08:36 Intake & Output 06/30/24 07/01/24 07/01/24 18:59 06:59 18:59 Intake Total 448 900 Output Total 1200 500 Balance -752 -500 900 Weight 79 kg Intake: Oral 448 900 Output: Urine 1200 500 Other: Voiding Method External Catheter External Catheter External Catheter - Exam GENERAL DESCRIPTION: An elderly male lying in bed in no distress RESPIRATORY SYSTEM: Unlabored breathing , decreased breath sounds at bases HEART: S1 S2 regular rate and rhythm , ABDOMEN: Soft , no tenderness EXTREMITIES: No edema feet - Labs CBC & Chem 7: 06/29/24 08:20 07/01/24 10:05 Labs: Abnormal Lab Results - Last 24 Hours (Table) 07/01/24 07/01/24 Range/Units 07:38 10:05 PT 16.6 H (10.0-12.5) sec INR 1.6 H (<1.2) Sodium 136 L (137-145) mmol/L BUN 57 H (9-20) mg/dL Creatinine 1.74 H (0.66-1.25) mg/dL Glucose 139 H (74-99) mg/dL Assessment and Plan (1) Fever Current Visit: Yes Status: Acute Code(s): R50.9 - FEVER, UNSPECIFIED SNOMED Code(s): 752054561 (2) UTI (urinary tract infection) Current Visit: No Status: Acute Code(s): N39.0 - URINARY TRACT INFECTION, SITE NOT SPECIFIED SNOMED Code(s): 34050597 Plan: 1patient with a fever in this patient with initial presentation to the hospital with some urinary frequency and burning with initial concern for possible UTI however patient UA shows mostly hematuria and no pyuria patient did have improvement of his fever pattern patient also have CT of abdominal pelvis with oral contrast did not show any acute intra-abdominal pathology there was concern for possible pulmonary infiltrate, Question related to the fluid versus atypical infection he did tested negative for COVID RSV and influenza 2patient did have resolution of his fever the patient white count has normalized, 3patient has received adequate Rocephin during inpatient and can be discontinued on discharge Dictation was produced using [employer] dictation software. please excuse any grammatical, word or spelling errors. Time with Patient: Less than 30
[2024-07-02 09:32] LABS: Basophils # (A) 0.1 k/uL (0-0.2); Basophils % (A) 1 %; Eosinophils # (A) 0.2 k/uL (0-0.7); Eosinophils % (A) 2 %; Hypochromasia Slight; Lymphocytes % (A) 10 %; MCH 29.2 pg (25.0-35.0); MCHC 31.3 g/dL (31.0-37.0); MCV 93.3 fL (80.0-100.0); Monocytes # (A) 0.7 k/uL (0-1.0); Monocytes % (A) 7 %; Neutrophils # (A) 8.1 k/uL (1.3-7.7); Neutrophils % (A) 79 %; Platelet Count 325 k/uL (150-450); RBC 3.43 m/uL (4.30-5.90); RDW 13.9 % (11.5-15.5); WBC 10.3 k/uL (3.8-10.6)
[2024-07-02 09:40] LABS: African American GFR (CKD) 39 (>60 ml/min/1.73 sqM); Anion Gap 4 mmol/L; Blood Urea Nitrogen 56 mg/dL (9-20); Calcium 8.4 mg/dL (8.4-10.2); Carbon Dioxide 29 mmol/L (22-30); Chloride 104 mmol/L (98-107); Glucose 109 mg/dL (74-99); Non-African American GFR(CKD) 34 (>60 ml/min/1.73 sqM); Potassium 4.7 mmol/L (3.5-5.1); Sodium 137 mmol/L (137-145)
[2024-07-02 09:43] LABS: INR 1.8 (<1.2); Prothrombin Time 18.2 sec (10.0-12.5)
[2024-07-02] MEDS ORDERED: HEPARIN SODIUM 1,000 UN/ML (10ML VL) IV PRN (11:39)
--- NOTE | 2024-07-02 11:41 | P.PN ---
Subjective Patient is seen for follow-up for acute kidney injury. No significant complaints today. Tolerating oral intake. Status post IV fluids. Serum creatinine at 1.8 today. Objective - Vital Signs Vital signs: Vital Signs Temp 97.5 F L 07/02/24 07:51 Pulse 60 07/02/24 07:51 Resp 17 07/02/24 07:51 BP 108/65 07/02/24 07:51 Pulse Ox 96 07/02/24 07:51 FiO2 21 06/23/24 08:36 Intake & Output 07/01/24 07/02/24 07/02/24 18:59 06:59 18:59 Intake Total 1260 150 Output Total 600 1150 Balance 660 -1150 150 Weight 90.1 kg Intake: Oral 1260 150 Output: Urine 600 1150 Other: Voiding Method External Catheter External Catheter External Catheter # Bowel Movements 1 - Exam Patient is awake, comfortable, no acute distress. Examination of the heart S1 and S2 Examination of the lungs bilateral breath sounds are heard Abdomen is soft nontender Examination of lower extremities shows no significant edema, chronic skin changes noted. [employer] exam is grossly intact. - Labs CBC & Chem 7: 07/02/24 08:53 07/02/24 08:53 Labs: Abnormal Lab Results - Last 24 Hours (Table) 07/02/24 07/02/24 07/02/24 Range/Units 08:53 08:53 08:53 RBC 3.43 L (4.30-5.90) m/uL Hgb 10.0 L (13.0-17.5) gm/dL Hct 32.0 L (39.0-53.0) % Neutrophils # 8.1 H (1.3-7.7) k/uL PT 18.2 H (10.0-12.5) sec INR 1.8 H (<1.2) BUN 56 H (9-20) mg/dL Creatinine 1.81 H (0.66-1.25) mg/dL Glucose 109 H (74-99) mg/dL Assessment and Plan Assessment: 1. Acute kidney injury secondary to ATN secondary to hypovolemia. Creatinine 2.1 on admission and slowly increased to 1.8 today. UA benign. Limited assessment on kidney ultrasound but no hydronephrosis noted. Creatinine 1.2 dated September 25, 2023. Lasix dose will be decreased. 2. Hyperkalemia secondary to acute kidney injury on Aldactone. Improved. 3. Metabolic acidosis secondary to acute kidney injury and IV fluids. On oral bicarb. 4. Benign hypertension. Controlled. 5. Volume overload. On Lasix. 6. Acute hypoxic respiratory failure. Component of fluid overload. ?PNA. Plan: Continue to maintain good oral intake. decrease Lasix Follow-up as outpatient in 1 to 2 weeks.
[2024-07-02 12:18] LABS: INR 1.8 (<1.2); Partial Thromboplastin Time 29.8 sec (22.0-30.0); Prothrombin Time 18.5 sec (10.0-12.5)
[2024-07-02] MEDS: HEPARIN SOD,PORK IN 0.45% NACL 25,000 UNIT in 0.45% NACL 1 250ML.BAG IV SCH (12:33)
[2024-07-02] MEDS: HEPARIN SODIUM 1,000 UN/ML (10ML VL) IV ONE (12:34)
--- NOTE | 2024-07-02 14:20 | P.PN ---
Subjective Progress Note Date: 07/02/24 Patient is an 84-year-old white male with past medical history significant for COPD, hyperlipidemia, hypertension, valvular heart disease and previous mechanical aortic valve replacement, pacemaker, and prostate disorder. Patient originally presented to the emergency department back on 06/21/2024 primarily with urinary complaints; however, patient denies this. We were consulted yesterday, as the patient has had increased oxygen demands. He has been intermittently febrile, with a Tmax of 102.8 F. Procalcitonin level elevated at 2.69 most recent chest x-ray showing diffuse bilateral infiltrates, blunting of costophrenic angles, cardiomegaly. NT proBNP was elevated at 12,500. A CT of the abdomen and pelvis Showed bibasilar groundglass opacity with air bronchograms, concerning for atypical pneumonia. There was small bilateral pleural effusions. Viral screen negative for influenza, RSV, COVID. Patient is currently receiving empiric antibiotic coverage in the form of Rocephin. CBC from yesterday: WBC count 11.2, hemoglobin 10.7, hematocrit 33.8, platelets 134. BMP from yesterday: Sodium 134, potassium 4.4, chloride 106, serum bicarb 23, BUN 47, creatinine 1.54, glucose 90. This is an acute kidney injury, creatinine slowly improving. Urine culture was negative. Blood culture pending, and demonstrating no growth at 48 hours. Patient has a DNR/DNI status. He is currently resting comfortably in bed. On 6 L/min nasal cannula, SpO2 96%. Denies any coughing, sputum production, chest pain. Continues to be intermittently febrile. Hemodynamics are stable. Progress note dated June 28, 2024. 84-year-old male that was seen in consultation yesterday. The patient was appa rently having increasing shortness of breath, with increasing oxygen demands. Chest x-ray was consistent with possible fluid overload. N-terminal proBNP was elevated at 12,500. Currently, the patient is seen today in room 370. He is on room air. Saturations are 91%. The patient's procalcitonin level was 2.69. The patient is not receiving any IV fluids. The patient is on IV Rocephin, for possible urinary tract infection. Current labs include a white count 9.9, hemoglobin 10.7, hematocrit 34.2, and a normal platelet count. Sodium 135, potassium 4.3, chlorides 104, CO2 25, BUN 57, creatinine 1.52. Glucose is 116. Calcium 8.6. Albumin is 3.1. Procalcitonin level is 2.69. Blood and urine cultures are currently negative. Chest x-ray is consistent with fluid overload/CHF. Progress note dated June 29, 2024. 84-year-old male seen today in room 370. He is on room air. He is receiving Rocephin. The patient denies any respiratory issues. In fact, he states he feels great. He would like to be discharged if possible. Current laboratory data includes a white count 9.3, hemoglobin 11.1, hematocrit 35.4, and a normal platelet count. PT 24.2, INR 2.4. Sodium 137, potassium 4.3, chlorides 104, CO2 25, BUN 55, creatinine 1.61. Glucose is 159. Progress note dated June 30, 2024. 84-year-old male seen today in room 370. He is on room air. No IV fluids. The patient will be discharged, told likely early next week, to a rehabilitation facility. Clinically, he is doing well. He is awake and alert. He denies any chest pain or chest discomfort. He is not having any shortness of breath, cough, wheezing, or any pulmonary complaints for that matter. Laboratory data today includes a PT of 21, and INR of 2.1. Progress note dated July 01, 2024. 84-year-old male seen today in room 370. The patient is currently on room air. He is not requiring any IV fluids. He denies any shortness of breath, cough, wheezing, chest tightness, or phlegm production. He in fact denies all respiratory issues at this time. The patient is hopefully waiting for discharge . No new laboratory data today other than a PT of 16.6, and INR of 1.6. On today's evaluation of 07/05/2024, the patient is being seen for a follow-up. The patient Is doing and the patient is resting comfortably on room air oxygen with a pulse ox of 99%. The patient lives with his son. His mobility is obviously limited and the patient has been utilizing a walker. The patient is being treated for an acute hypoxic idalmis failure due to CHF exacerbation and pulmonary edema. The patient has valvular heart disease with preserved LV function. He has history of mechanical aortic valve replacement the patient's most recent echocardiogram showed moderate degree of mitral stenosis. She also has a pacemaker in place. He remains on anticoagulation with warfarin. INR today is at 1.8. His creatinine is also at 1.8 with a sodium level of 137 and a potassium level of 4.7. BUN is a 56 and a chloride is 104 with a bicarb of 29. The white circles of 10.3 with a hemoglobin of 10 and a platelet count of 325. The patient remains on Symbicort. The patient remains on amiodarone 200 mg p.o. daily and metoprolol 50 mg p.o. twice a day. He remains on Norvasc 5 mg p.o. twice daily for blood pressure control. No other significant events otherwise over the past 24 hours and the patient is calm and comfortable. Objective - Vital Signs Vital signs: Vital Signs Temp 97.5 F L 07/02/24 07:51 Pulse 60 07/02/24 07:51 Resp 17 07/02/24 07:51 BP 108/65 07/02/24 07:51 Pulse Ox 96 07/02/24 07:51 FiO2 21 06/23/24 08:36 Intake & Output 07/01/24 07/02/24 07/02/24 18:59 06:59 18:59 Intake Total 1260 150 Output Total 600 1150 Balance 660 -1150 150 Weight 90.1 kg Intake: Oral 1260 150 Output: Urine 600 1150 Other: Voiding Method External Catheter External Catheter External Catheter # Bowel Movements 1 - Exam No acute distress, oriented 3. Currently on room air. HEENT examination is grossly unremarkable. Mucous membranes are moist. No oral lesions. Neck supple. Full range of motion. No adenopathy thyromegaly or neck vein distention. Cardiovascular examination reveals irregular rhythm consistent with atrial fibrillation and the patient has a harsh systolic ejection murmur grade 4/6 heard over the apex in the left lateral sternal border. Lungs reveal mild scattered rhonchi and crackles. No wheezes. Breath sounds equal bilaterally. Abdomen soft bowel sounds are heard. No masses or tenderness. Extremities are intact. No cyanosis clubbing or edema. Skin reveals chronic venous stasis changes to the lower extremities. Neurologic examination is brief but nonfocal. - Labs CBC & Chem 7: 07/02/24 08:53 07/02/24 08:53 Labs: Abnormal Lab Results - Last 24 Hours (Table) 07/01/24 07/02/24 07/02/24 Range/Units 10:05 08:53 08:53 RBC 3.43 L (4.30-5.90) m/uL Hgb 10.0 L (13.0-17.5) gm/dL Hct 32.0 L (39.0-53.0) % Neutrophils # 8.1 H (1.3-7.7) k/uL PT 18.2 H (10.0-12.5) sec INR 1.8 H (<1.2) Sodium 136 L (137-145) mmol/L BUN 57 H (9-20) mg/dL Creatinine 1.74 H (0.66-1.25) mg/dL Glucose 139 H (74-99) mg/dL 07/02/24 Range/Units 08:53 RBC (4.30-5.90) m/uL Hgb (13.0-17.5) gm/dL Hct (39.0-53.0) % Neutrophils # (1.3-7.7) k/uL PT (10.0-12.5) sec INR (<1.2) Sodium (137-145) mmol/L BUN 56 H (9-20) mg/dL Creatinine 1.81 H (0.66-1.25) mg/dL Glucose 109 H (74-99) mg/dL Assessment and Plan Plan: Acute hypoxic respiratory failure, secondary to acute CHF exacerbation and pulmonary edema, underlying pneumonia could not be excluded. Clinically improved and the patient is currently on room air oxygen. The most recent chest x-ray was done on 06/27/2024 and it showed CHF with some fluid overload. No evidence of any acute pulmonary infiltrates. Acute febrile illness, recovered Congestive heart failure with preserved ejection fraction. Valvular heart disease, history of moderate mitral stenosis and previous mechanical aortic valve replacement. Permanent pacemaker. Chronic kidney disease. Patient's creatinine is better at 1.8 Hypertension. History of hyperlipidemia. Chronic obstructive pulmonary disease. Former tobacco dependence. Plan: Patient is currently on room air oxygen Patient is on a combination of amiodarone and metoprolol Anticoagulation with warfarin and the patient's INR is 1.8 He is a DO NOT RESUSCITATE patient. He is awake and alert.
--- NOTE | 2024-07-02 15:03 | P.PN ---
Subjective Progress Note Date: 07/02/24 Interval History: This is a pleasant 84 years old male with multiple medical problems. He was admitted on 06/21 for increased frequency of urination with some dysuria. Patient has been dehydrated with evidence of acute kidney injury and hyperkalemia on admission. Patient is followed closely by nephrology team and is treated with IV fluid. Lasix was placed on hold. Creatinine improved down from 1.96 on admission to 1.7 yesterday. Potassium was also better at 4.4 today.. Hemoglobin 10.8. INR 1.7 Chest x-ray: Similar CHF with pulmonary vascular congestion. Possible trace right effusion now. Patient hemodynamically stable /. Patient seen and examined. Blood work done this morning showed WBC 9.06, hemoglobin 10.9, platelet count 110, INR 2.3, sodium 134, potassium 5.3, BUN 34.8, creatinine 1.8. States he feels much better. 06/25. Patient seen and examined. Complaining of generalized weakness, PT and OT consulted 06/26. Patient seen and examined. Patient went to respiratory distress yesterday afternoon, was placed on 6 L of oxygen. Chest x-ray done showed cardiomegaly, pulm vascular congestion and bilateral pleural effusions. CT abdominal pelvis done showed Bibasilar groundglass opacity with air bronchograms, small bilateral pleural effusions, persistent small bilateral renal hypodense masses. States breathing is improved, patient was given extra dose of Lasix IV this morning. . Patient seen and examined. States breathing has improved a lot. Currently on 4 L of oxygen. 06/28. Patient seen and examined. Continues to be afebrile. States breathing has improved. 06/29--patient was seen and examined today. Feeling better. Remained afebrile, remains on room air. PT/OT recommended subacute rehab. Patient agreeable to go to subacute rehab. 06/30--patient was seen and examined today. Remains on room air. Feeling better. Denied any shortness of breath, cough, chest pain. INR 2.1. Currently on Coumadin pharmacy to dose for mechanical aortic valve. Awaiting placement to subacute rehab. 07/01--patient was seen and examined today. Currently on room air. No issues overnight. Patient's INR is low 1.6, creatinine is elevated 1.76. Patient on Coumadin pharmacy to dose 07/02--patient was seen and examined today. No issues overnight. Remains on room air. PT/OT has recommended subacute rehab. Patient's INR is still subtherapeutic 1.8, patient has mechanical aortic valve, started on heparin drip until INR therapeutic due to high risk of thromboembolism with mechanical aortic valve, avoiding subcutaneous Lovenox due to renal dysfunction. Creatinine 1.8 today. Nephrology following, recommended to decrease Lasix. Assessment and plan: Acute hypoxic respiratory failure: Acute on chronic diastolic CHF: DOMINGO on CKD: Improving Hyperkalemia: Resolved UTI: Mechanical aortic valve on Coumadin at home COPD, no acute process Hypertension Hyperlipidemia Osteoarthritis Plan: Nephrology following for acute kidney injury and hyperkalemia, currently on bicarbonate drip and oral bicarbonate, also on p.o. Lasix, monitor renal function. Monitor daily weight and I&O's. Continue amiodarone, metoprolol On Coumadin at home, continue Coumadin pharmacy to dose, monitor INR. Heparin drip while INR subtherapeutic. Nephrology, pulmonary, infectious disease consulted and following. Rocephin for UTI Continue inhaler/bronchodilator protocol PT and OT following recommend rehab, patient now agreeable DVT prophylaxis: AC--- Coumadin PHYSICAL EXAMINATION: GENERAL: The patient is A&O x3, NAD HEENT: EOMI, Sclerae anicteric, Moist Mucous membranes Neck: Supple, Non tender, No JVD CARDIOVASCULAR: S1, S2 present. No murmurs, rubs, or gallops. PULMONARY: Equal breath souds B/L, No wheezing, No crackles. ABDOMEN: Soft, nontender, nondistended, normoactive bowel sounds. No guarding or rebound tenderness. MUSCULOSKELETAL: + edema, No cyanosis. No clubbing. Normal ROM. Intact peripheral pulses. Skin; Warm. No rash. REVIEW OF SYSTEMS: CONSTITUTIONAL: No fever or chills. CARDIOVASCULAR: No chest pain, palpitations or syncope. PULMONARY: No shortness of breath, no cough, sore throat. GASTROINTESTINAL: No nausea, vomiting, diarrhea, abdominal pain. : No Dysuria, urgency, frequency. Extremities: No edema. NEUROLOGICAL: No headaches, no weakness, or numbness Dictation was produced using [employer] software. please excuse any grammatical, word or spelling errors. Objective - Vital Signs Vital signs: Vital Signs Temp 97.3 F L 07/02/24 11:47 Pulse 67 07/02/24 11:47 Resp 17 07/02/24 11:47 BP 143/85 07/02/24 11:47 Pulse Ox 99 07/02/24 11:47 FiO2 21 06/23/24 08:36 Intake & Output 07/01/24 07/02/24 07/02/24 18:59 06:59 18:59 Intake Total 1260 278 Output Total 600 1150 Balance 660 -1150 278 Weight 90.1 kg Intake: IV 10 Invasive Line 3 10 Oral 1260 268 Output: Urine 600 1150 Other: Voiding Method External Catheter External Catheter External Catheter # Bowel Movements 1 - Labs CBC & Chem 7: 07/02/24 08:53 07/02/24 08:53 Labs: Abnormal Lab Results - Last 24 Hours (Table) 07/02/24 07/02/24 07/02/24 Range/Units 08:53 08:53 08:53 RBC 3.43 L (4.30-5.90) m/uL Hgb 10.0 L (13.0-17.5) gm/dL Hct 32.0 L (39.0-53.0) % Neutrophils # 8.1 H (1.3-7.7) k/uL PT 18.2 H (10.0-12.5) sec INR 1.8 H (<1.2) BUN 56 H (9-20) mg/dL Creatinine 1.81 H (0.66-1.25) mg/dL Glucose 109 H (74-99) mg/dL 07/02/24 Range/Units 11:45 RBC (4.30-5.90) m/uL Hgb (13.0-17.5) gm/dL Hct (39.0-53.0) % Neutrophils # (1.3-7.7) k/uL PT 18.5 H (10.0-12.5) sec INR 1.8 H (<1.2) BUN (9-20) mg/dL Creatinine (0.66-1.25) mg/dL Glucose (74-99) mg/dL
--- NOTE | 2024-07-02 15:56 | P.PN ---
Subjective Progress Note Date: 07/02/24 Principal diagnosis: Reason for follow-up is fever Patient is a 84-year-old male with a past medical history significant for COPD hypertension hyperlipidemia osteoarthritis prostate disorder patient presenting with dysuria and frequent urination did have a fever prompting this consultation. On today's evaluation that is 07/02/2024, Patient is afebrile patient is curr ently on room air and denies having any shortness of breath, the patient denies any chest pain or cough, the patient denies any nausea vomiting did not have any abdominal pain and no diarrhea, mention feeling better. Patient white count is 10.3, creatinine is 1.81 blood urine culture have been negative Objective - Vital Signs Vital signs: Vital Signs Temp 97.3 F L 07/02/24 11:47 Pulse 67 07/02/24 11:47 Resp 17 07/02/24 11:47 BP 143/85 07/02/24 11:47 Pulse Ox 99 07/02/24 11:47 FiO2 21 06/23/24 08:36 Intake & Output 07/01/24 07/02/24 07/02/24 18:59 06:59 18:59 Intake Total 1260 278 Output Total 600 1150 Balance 660 -1150 278 Weight 90.1 kg Intake: IV 10 Invasive Line 3 10 Oral 1260 268 Output: Urine 600 1150 Other: Voiding Method External Catheter External Catheter External Catheter # Bowel Movements 1 - Exam GENERAL DESCRIPTION: An elderly male lying in bed in no distress RESPIRATORY SYSTEM: Unlabored breathing , decreased breath sounds at bases HEART: S1 S2 regular rate and rhythm , ABDOMEN: Soft , no tenderness EXTREMITIES: No edema feet - Labs CBC & Chem 7: 07/02/24 08:53 07/02/24 08:53 Labs: Abnormal Lab Results - Last 24 Hours (Table) 07/02/24 07/02/24 07/02/24 Range/Units 08:53 08:53 08:53 RBC 3.43 L (4.30-5.90) m/uL Hgb 10.0 L (13.0-17.5) gm/dL Hct 32.0 L (39.0-53.0) % Neutrophils # 8.1 H (1.3-7.7) k/uL PT 18.2 H (10.0-12.5) sec INR 1.8 H (<1.2) BUN 56 H (9-20) mg/dL Creatinine 1.81 H (0.66-1.25) mg/dL Glucose 109 H (74-99) mg/dL 07/02/24 Range/Units 11:45 RBC (4.30-5.90) m/uL Hgb (13.0-17.5) gm/dL Hct (39.0-53.0) % Neutrophils # (1.3-7.7) k/uL PT 18.5 H (10.0-12.5) sec INR 1.8 H (<1.2) BUN (9-20) mg/dL Creatinine (0.66-1.25) mg/dL Glucose (74-99) mg/dL Assessment and Plan (1) Fever Current Visit: Yes Status: Acute Code(s): R50.9 - FEVER, UNSPECIFIED SNOMED Code(s): 778441481 (2) UTI (urinary tract infection) Current Visit: No Status: Acute Code(s): N39.0 - URINARY TRACT INFECTION, SITE NOT SPECIFIED SNOMED Code(s): 94856009 Plan: 1patient with a fever in this patient with initial presentation to the hospital with some urinary frequency and burning with initial concern for possible UTI however patient UA shows mostly hematuria and no pyuria patient did have im provement of his fever pattern patient also have CT of abdominal pelvis with oral contrast did not show any acute intra-abdominal pathology there was concern for possible pulmonary infiltrate, Question related to the fluid versus atypical infection he did tested negative for COVID RSV and influenza 2patient did have resolution of his fever the patient white count has normalized, 3patient to continue Rocephin while inpatient however can be discontinued on discharge Dictation was produced using [employer] dictation software. please excuse any grammatical, word or spelling errors. Time with Patient: Less than 30
[2024-07-02] MEDS: WARFARIN 5 MG TAB PO ONE (16:47)
[2024-07-03 07:58] LABS: Basophils # (A) 0.1 k/uL (0-0.2); Basophils % (A) 1 %; Eosinophils # (A) 0.2 k/uL (0-0.7); Eosinophils % (A) 2 %; HCT 31.2 % (39.0-53.0); HGB 9.8 gm/dL (13.0-17.5); Hypochromasia Moderate; Lymphocytes # (A) 0.9 k/uL (1.0-4.8); Lymphocytes % (A) 10 %; MCH 29.4 pg (25.0-35.0); MCHC 31.4 g/dL (31.0-37.0); MCV 93.6 fL (80.0-100.0); Mean Platelet Volume 7.8; Monocytes # (A) 0.7 k/uL (0-1.0); Monocytes % (A) 7 %; Neutrophils # (A) 7.4 k/uL (1.3-7.7); Neutrophils % (A) 77 %; Platelet Count 315 k/uL (150-450); RBC 3.33 m/uL (4.30-5.90); RDW 14.1 % (11.5-15.5); WBC 9.6 k/uL (3.8-10.6)
[2024-07-03 08:04] LABS: INR 1.9 (<1.2); Partial Thromboplastin Time 64.7 sec (22.0-30.0); Prothrombin Time 19.5 sec (10.0-12.5)
[2024-07-03 08:21] VITALS: RESP 17; TEMP 98
[2024-07-03 08:38] LABS: African American GFR (CKD) 43 (>60 ml/min/1.73 sqM); Anion Gap 5 mmol/L; Blood Urea Nitrogen 51 mg/dL (9-20); Calcium 8.6 mg/dL (8.4-10.2); Carbon Dioxide 26 mmol/L (22-30); Chloride 106 mmol/L (98-107); Glucose 89 mg/dL (74-99); Non-African American GFR(CKD) 37 (>60 ml/min/1.73 sqM); Potassium 5.2 mmol/L (3.5-5.1); Sodium 137 mmol/L (137-145)
[2024-07-03 12:24] VITALS: BP 116/56; PULSE 62
--- NOTE | 2024-07-03 13:20 | P.PN ---
Subjective Patient is seen for follow-up for acute kidney injury. No significant complaints today. Tolerating oral intake. Status post IV fluids. Serum creatinine decreased to 1.6 today. Lasix was decreased. Objective - Vital Signs Vital signs: Vital Signs Temp 98 F 07/03/24 12:00 Pulse 62 07/03/24 12:00 Resp 17 07/03/24 12:00 BP 116/56 07/03/24 12:00 Pulse Ox 97 07/03/24 12:00 FiO2 21 06/23/24 08:36 Intake & Output 07/02/24 07/03/24 07/03/24 18:59 06:59 18:59 Intake Total 396 339.856 Output Total 1500 Balance 396 -1500 339.856 Weight 90.4 kg Intake: IV 10 Invasive Line 3 10 Intake, IV Titration 221.856 Amount Heparin Sod,Pork in 0.45% 221.856 NaCl 25,000 unit In 0.45 % NaCl 1 250ml.bag @ 11.1 UNITS/KG/HR 10.001 mls/ hr IV .Q24H [facility] Rx#: [id number] Oral [id number] Output: Urine 1500 Other: Voiding Method External Catheter External Catheter External Catheter # Voids 1 # Bowel Movements 1 1 - Exam Patient is awake, comfortable, no acute distress. Examination of the heart S1 and S2 Examination of the lungs bilateral breath sounds are heard Abdomen is soft nontender Examination of lower extremities shows no significant edema, chronic skin changes noted. [employer] exam is grossly intact. - Labs CBC & Chem 7: 07/03/24 06:58 07/03/24 06:58 Labs: Abnormal Lab Results - Last 24 Hours (Table) 07/02/24 07/03/24 07/03/24 Range/Units 17:47 00:29 06:58 RBC 3.33 L (4.30-5.90) m/uL Hgb 9.8 L (13.0-17.5) gm/dL Hct 31.2 L (39.0-53.0) % Lymphocytes # 0.9 L (1.0-4.8) k/uL PT (10.0-12.5) sec INR (<1.2) APTT 73.8 H 66.7 H (22.0-30.0) sec Potassium (3.5-5.1) mmol/L BUN (9-20) mg/dL Creatinine (0.66-1.25) mg/dL 07/03/24 07/03/24 Range/Units 06:58 06:58 RBC (4.30-5.90) m/uL Hgb (13.0-17.5) gm/dL Hct (39.0-53.0) % Lymphocytes # (1.0-4.8) k/uL PT 19.5 H (10.0-12.5) sec INR 1.9 H (<1.2) APTT 64.7 H (22.0-30.0) sec Potassium 5.2 H (3.5-5.1) mmol/L BUN 51 H (9-20) mg/dL Creatinine 1.68 H (0.66-1.25) mg/dL Assessment and Plan Assessment: 1. Acute kidney injury secondary to ATN secondary to hypovolemia. . UA benign. Limited assessment on kidney ultrasound but no hydronephrosis noted. Creatinine 1.2 dated September 25, 2023. Lasix dose will be decreased as serum creatinine had started to increase again. 2. Hyperkalemia secondary to acute kidney injury on Aldactone. Improved. 3. Metabolic acidosis secondary to acute kidney injury and IV fluids. On oral bicarb. 4. Benign hypertension. Controlled. 5. Volume overload. On Lasix. 6. Acute hypoxic respiratory failure. Component of fluid overload. ?PNA. Plan: Continue to maintain good oral intake. Currently off of diuretics. Check bladder scan and rule out urine retention as serum potassium is mildly elevated at 5.2. Follow-up as outpatient in 1 to 2 weeks.
--- NOTE | 2024-07-03 15:16 | P.DS ---
Providers Date of admission: 06/21/24 13:10 Attending physician: Checo Muniz MD Consults: 06/22/24 15:49 Consult Physician Routine Consulting Provider: Ana Lemus Consult Reason/Comments: DOMINGO, HYPERKALEMIA Do you want consulting provider notified?: Already Contacted 06/24/24 08:27 Consult Physician Routine Consulting Provider: Adriana Lam Consult Reason/Comments: fever Do you want consulting provider notified?: Yes 06/26/24 09:39 Consult Physician Routine Consulting Provider: Tita Eddy Consult Reason/Comments: Acute respiratory failure Do you want consulting provider notified?: Yes Primary care physician: Coleman Nugent Hospital Course: Final Diagnosis Acute hypoxic respiratory failure: from CHF Acute on chronic diastolic CHF: DOMINGO on CKD: Improving Hyperkalemia: Resolved UTI: clinically felt to be no UTI had abnormal urine likely from dehydration. 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 Anterior abdominal wall mesenteric fat containing hernia. Discharge Disposition Patient stable for discharge to subacute rehab. Patient will continue off diuretics and will follow-up with repeat blood work and nephrology in 1 week. Patient should continue on a Lovenox bridge 90 mg subcu daily renal dose adjustment and to check an INR daily once INR is greater than 2.5 patient can discontinue Lovenox. He is continued on warfarin 6 mg daily on discharge. Also given Symbicort. He is to see pulmonary in the office as well as cardiology on discharge. Hospital Course This is an 84-year-old male with medical history of mechanical valve anticoagulated with warfarin, COPD, hypertension, hyperlipidemia, osteoarthritis, chronic kidney disease. Additionally patient is chronic diastolic CHF. Patient comes into the hospital having dysuria and frequency of urination back on June 21. Patient was found to be dehydrated with evidence of acute kidney injury and elevated potassium on admission. He was admitted to the hospital with a nephrology consultation he was treated with IV fluids and his creatinine has improved down to 1.68 today. His diuretics remain on hold. Patient is also found to have a subtherapeutic INR and has been transition to an IV heparin bridge most recently INR today is 1.9. Patient was found to have CHF on admission with his initial chest x-ray showing pulmonary vascular congestion and a trace right pleural effusion. He was monitored closely had a pulmonary consultation and was given IV Lasix. He was initially requiring oxygen at 4 L and has been since weaned to room air with oxygen saturations of 99%. Patient was also evaluated by infectious disease with concern for UTI however his fever has improved as well as the dysuria and his urine culture was found to be negative and clinically does not present as a urinary tract infection he was continued on IV ceftriaxone while in the will not require any further antibiotics on discharge. Patient is awake alert oriented he is breathing comfortably no complaints of shortness of breath he is on room air hemodynamically he is stable. Cell count is 9.6, INR 1.9, sodium level 137, potassium 5.2, BUN of 51, creatinine of 1.68. Cleared for discharge. Please see medication reconciliation for a list of current medications. Thank you for allowing us to participate in the care of this patient. The impression and plan of care has been dictated by Rosario Holcomb, Nurse Practitioner as directed. Dr. Umesh MD I have performed a history and physical examination and medical decision making of this patient, discussed the same with the dictator, and agree with the dictators assessment and plan as written, documented as a scribe. Based on total visit time, I have performed more than 50% of this visit. Patient Condition at Discharge: Fair Plan - Discharge Summary New Discharge Prescriptions: New Menthol-Zinc Oxide Oint [Calmoseptine Ointment] 1 applic TOPICAL BID each Metoprolol Tartrate [Lopressor] 50 mg PO BID tab Warfarin [Coumadin] 6 mg PO DAILY #6 tab Enoxaparin [Lovenox] 90 mg SQ DAILY #3 each Amiodarone [Cordarone] 200 mg PO DAILY tab Nystatin 100,000 Unit/gm Powd [Mycostatin Powder] 1 applic TOPICAL BID each HYDROcodone/APAP 5-325MG [Hopkins 5-325] 1 each PO BID PRN #4 tab PRN Reason: Pain Budesonide-Formot 160-4.5 Mcg [Symbicort 160-4.5 Mcg Inhaler] 2 puff INHALATI ON RT-BID each Cholecalciferol [Vitamin D3 (25 Mcg = 1000 Iu)] 50 mcg PO DAILY tab Continue amLODIPine [Norvasc] 5 mg PO BID Atorvastatin [Lipitor] 40 mg PO DAILY Loratadine [Claritin] 10 mg PO DAILY Cholestyramine (with Sugar) [Questran Packet] 4 gm PO TID BETWEEN MEALS 7 Days #21 packet Fluticasone Nasal Minong [Flonase Nasal Minong] 2 spray EA NOSTRIL DAILY Discontinued Warfarin [Coumadin] 5 mg PO DAILY Metoprolol Tartrate [Lopressor] 25 mg PO BID Furosemide [Lasix] 20 mg PO BID cephALEXin [Keflex] 750 mg PO Q12HR 7 Days #14 cap Spironolactone [Aldactone] 25 mg PO DAILY 30 Days #30 tab Discharge Medication List amLODIPine [Norvasc] 5 mg PO BID 05/14/19 [History] Atorvastatin [Lipitor] 40 mg PO DAILY 09/19/23 [History] Fluticasone Nasal Minong [Flonase Nasal Minong] 2 spray EA NOSTRIL DAILY 09/19/23 [History] Loratadine [Claritin] 10 mg PO DAILY 09/19/23 [History] Cholestyramine (with Sugar) [Questran Packet] 4 gm PO TID BETWEEN MEALS 7 Days #21 packet 09/25/23 [Rx] Amiodarone [Cordarone] 200 mg PO DAILY tab 07/03/24 [Rx] Budesonide-Formot 160-4.5 Mcg [Symbicort 160-4.5 Mcg Inhaler] 2 puff INHALATION RT-BID each 07/03/24 [Rx] Cholecalciferol [Vitamin D3 (25 Mcg = 1000 Iu)] 50 mcg PO DAILY tab 07/03/24 [Rx] Enoxaparin [Lovenox] 90 mg SQ DAILY #3 each 07/03/24 [Rx] HYDROcodone/APAP 5-325MG [Hopkins 5-325] 1 each PO BID PRN #4 tab 07/03/24 [Rx] Menthol-Zinc Oxide Oint [Calmoseptine Ointment] 1 applic TOPICAL BID each 07/03/24 [Rx] Metoprolol Tartrate [Lopressor] 50 mg PO BID tab 07/03/24 [Rx] Nystatin 100,000 Unit/gm Powd [Mycostatin Powder] 1 applic TOPICAL BID each 07/03/24 [Rx] Warfarin [Coumadin] 6 mg PO DAILY #6 tab 07/03/24 [Rx] Follow up Appointment(s)/Referral(s): [facility] [NON-STAFF] - 1 Week Adriana Lam MD [STAFF PHYSICIAN] - 1 Week Tita Eddy MD [STAFF PHYSICIAN] - 1 Week Ana Lemus MD [STAFF PHYSICIAN] - 1 Week Coleman Nugent MD [Primary Care Provider] - 1-2 Days Clay Prasad MD [STAFF PHYSICIAN] - 1 Week Ambulatory/Diagnostic Orders: Basic Metabolic Panel [LAB.AMB] Location: None Selected Complete Blood Count w/diff [LAB.AMB] Time Frame: 4 Days, Location: None Selected Prothrombin Time INR [LAB.AMB] Time Frame: 1 Day, Location: None Selected Activity/Diet/Wound Care/Special Instructions: Continue on Lovenox 90 mg subcutaneous daily until INR greater than 2.5 than can discontinue the lovenox. Check INR daily Follow up cardiology Continue off diuretics Follow up nephrology Repeat blood work Discharge Disposition: TRANSFER TO SNF/ECF
[2024-07-03] MEDS: WARFARIN 5 MG TAB PO ONE (16:29)
--- NOTE | 2024-07-03 21:30 | P.PN ---
Subjective Progress Note Date: 07/03/24 Patient is an 84-year-old white male with past medical history significant for COPD, hyperlipidemia, hypertension, valvular heart disease and previous mechanical aortic valve replacement, pacemaker, and prostate disorder. Patient originally presented to the emergency department back on 06/21/2024 primarily with urinary complaints; however, patient denies this. We were consulted yesterday, as the patient has had increased oxygen demands. He has been intermittently febrile, with a Tmax of 102.8 F. Procalcitonin level elevated at 2.69 most recent chest x-ray showing diffuse bilateral infiltrates, blunting of costophrenic angles, cardiomegaly. NT proBNP was elevated at 12,500. A CT of the abdomen and pelvis Showed bibasilar groundglass opacity with air bronchograms, concerning for atypical pneumonia. There was small bilateral pleural effusions. Viral screen negative for influenza, RSV, COVID. Patient is currently receiving empiric antibiotic coverage in the form of Rocephin. CBC from yesterday: WBC count 11.2, hemoglobin 10.7, hematocrit 33.8, platelets 134. BMP from yesterday: Sodium 134, potassium 4.4, chloride 106, serum bicarb 23, BUN 47, creatinine 1.54, glucose 90. This is an acute kidney injury, creatinine slowly improving. Urine culture was negative. Blood culture pending, and demonstrating no growth at 48 hours. Patient has a DNR/DNI status. He is currently resting comfortably in bed. On 6 L/min nasal cannula, SpO2 96%. Denies any coughing, sputum production, chest pain. Continues to be intermittently febrile. Hemodynamics are stable. Progress note dated June 28, 2024. 84-year-old male that was seen in consultation yesterday. The patient was appa rently having increasing shortness of breath, with increasing oxygen demands. Chest x-ray was consistent with possible fluid overload. N-terminal proBNP was elevated at 12,500. Currently, the patient is seen today in room 370. He is on room air. Saturations are 91%. The patient's procalcitonin level was 2.69. The patient is not receiving any IV fluids. The patient is on IV Rocephin, for possible urinary tract infection. Current labs include a white count 9.9, hemoglobin 10.7, hematocrit 34.2, and a normal platelet count. Sodium 135, potassium 4.3, chlorides 104, CO2 25, BUN 57, creatinine 1.52. Glucose is 116. Calcium 8.6. Albumin is 3.1. Procalcitonin level is 2.69. Blood and urine cultures are currently negative. Chest x-ray is consistent with fluid overload/CHF. Progress note dated June 29, 2024. 84-year-old male seen today in room 370. He is on room air. He is receiving Rocephin. The patient denies any respiratory issues. In fact, he states he feels great. He would like to be discharged if possible. Current laboratory data includes a white count 9.3, hemoglobin 11.1, hematocrit 35.4, and a normal platelet count. PT 24.2, INR 2.4. Sodium 137, potassium 4.3, chlorides 104, CO2 25, BUN 55, creatinine 1.61. Glucose is 159. Progress note dated June 30, 2024. 84-year-old male seen today in room 370. He is on room air. No IV fluids. The patient will be discharged, told likely early next week, to a rehabilitation facility. Clinically, he is doing well. He is awake and alert. He denies any chest pain or chest discomfort. He is not having any shortness of breath, cough, wheezing, or any pulmonary complaints for that matter. Laboratory data today includes a PT of 21, and INR of 2.1. Progress note dated July 01, 2024. 84-year-old male seen today in room 370. The patient is currently on room air. He is not requiring any IV fluids. He denies any shortness of breath, cough, wheezing, chest tightness, or phlegm production. He in fact denies all respiratory issues at this time. The patient is hopefully waiting for discharge . No new laboratory data today other than a PT of 16.6, and INR of 1.6. On today's evaluation of 07/05/2024, the patient is being seen for a follow-up. The patient Is doing and the patient is resting comfortably on room air oxygen with a pulse ox of 99%. The patient lives with his son. His mobility is obviously limited and the patient has been utilizing a walker. The patient is being treated for an acute hypoxic idalmis failure due to CHF exacerbation and pulmonary edema. The patient has valvular heart disease with preserved LV function. He has history of mechanical aortic valve replacement the patient's most recent echocardiogram showed moderate degree of mitral stenosis. She also has a pacemaker in place. He remains on anticoagulation with warfarin. INR today is at 1.8. His creatinine is also at 1.8 with a sodium level of 137 and a potassium level of 4.7. BUN is a 56 and a chloride is 104 with a bicarb of 29. The white circles of 10.3 with a hemoglobin of 10 and a platelet count of 325. The patient remains on Symbicort. The patient remains on amiodarone 200 mg p.o. daily and metoprolol 50 mg p.o. twice a day. He remains on Norvasc 5 mg p.o. twice daily for blood pressure control. No other significant events otherwise over the past 24 hours and the patient is calm and comfortable. On today's evaluation of 07/03/2024, the patient is being seen for a follow-up. The patient is doing well. No specific complaints. Afebrile and hemodynamically stable. The patient has valvular heart disease with moderate mitral stenosis and the patient has a previous mechanical valve in place. On today's blood work, the INR is at 1.9 and the patient remains on IV heparin. Wa rfarin dose is being adjusted. Hemoglobin is at 9.8. The patient also has a stable creatinine of 1.68 with a BUN of 51. He is on room air oxygen. He is sitting up in a chair. Denies having any specific complaints. Objective - Vital Signs Vital signs: Vital Signs Temp 98 F 07/03/24 07:30 Pulse 95 07/03/24 07:30 Resp 17 07/03/24 07:30 BP 144/80 07/03/24 07:30 Pulse Ox 97 07/03/24 07:30 FiO2 21 06/23/24 08:36 Intake & Output 07/02/24 07/03/24 07/03/24 18:59 06:59 18:59 Intake Total 396 339.856 Output Total 1500 Balance 396 -1500 339.856 Weight 90.4 kg Intake: IV 10 Invasive Line 3 10 Intake, IV Titration 221.856 Amount Heparin Sod,Pork in 0.45% 221.856 NaCl 25,000 unit In 0.45 % NaCl 1 250ml.bag @ 11.1 UNITS/KG/HR 10.001 mls/ hr IV .Q24H [facility] Rx#: [id number] Oral [id number] Output: Urine 1500 Other: Voiding Method External Catheter External Catheter External Catheter # Voids 1 # Bowel Movements 1 1 - Exam No acute distress, oriented 3. Currently on room air. HEENT examination is grossly unremarkable. Mucous membranes are moist. No oral lesions. Neck supple. Full range of motion. No adenopathy thyromegaly or neck vein distention. Cardiovascular examination reveals irregular rhythm consistent with atrial fi brillation and the patient has a harsh systolic ejection murmur grade 4/6 heard over the apex in the left lateral sternal border. Lungs reveal mild scattered rhonchi and crackles. No wheezes. Breath sounds equal bilaterally. Abdomen soft bowel sounds are heard. No masses or tenderness. Extremities are intact. No cyanosis clubbing or edema. Skin reveals chronic venous stasis changes to the lower extremities. Neurologic examination is brief but nonfocal. - Labs CBC & Chem 7: 07/03/24 06:58 07/03/24 06:58 Labs: Abnormal Lab Results - Last 24 Hours (Table) 07/02/24 07/02/24 07/03/24 Range/Units 11:45 17:47 00:29 RBC (4.30-5.90) m/uL Hgb (13.0-17.5) gm/dL Hct (39.0-53.0) % Lymphocytes # (1.0-4.8) k/uL PT 18.5 H (10.0-12.5) sec INR 1.8 H (<1.2) APTT 73.8 H 66.7 H (22.0-30.0) sec Potassium (3.5-5.1) mmol/L BUN (9-20) mg/dL Creatinine (0.66-1.25) mg/dL 07/03/24 07/03/24 07/03/24 Range/Units 06:58 06:58 06:58 RBC 3.33 L (4.30-5.90) m/uL Hgb 9.8 L (13.0-17.5) gm/dL Hct 31.2 L (39.0-53.0) % Lymphocytes # 0.9 L (1.0-4.8) k/uL PT 19.5 H (10.0-12.5) sec INR 1.9 H (<1.2) APTT 64.7 H (22.0-30.0) sec Potassium 5.2 H (3.5-5.1) mmol/L BUN 51 H (9-20) mg/dL Creatinine 1.68 H (0.66-1.25) mg/dL Assessment and Plan Plan: Acute hypoxic respiratory failure, secondary to acute CHF exacerbation and pulmonary edema, underlying pneumonia could not be excluded. Clinically improved and the patient is currently on room air oxygen. The most recent chest x-ray was done on 06/27/2024 and it showed CHF with some fluid overload. No evidence of any acute pulmonary infiltrates. The patient is currently on room air oxygen. 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 Valvular heart disease, history of moderate mitral stenosis and previous mechanical aortic valve replacement. Permanent pacemaker. Chronic kidney disease. Patient's creatinine is better at 1.9 Hypertension. History of hyperlipidemia. Chronic obstructive pulmonary disease. Former tobacco dependence. Plan: Continue anticoagulation with warfarin and discontinued IV heparin for now. Patient is currently on room air oxygen Patient is on a combination of amiodarone and metoprolol Anticoagulation with warfarin and the patient's INR is 1.9 He is a DO NOT RESUSCITATE patient. He is awake and alert. Likely gets discharged today
--- NOTE | 2024-07-04 14:44 | P.PN ---
Subjective Progress Note Date: 07/03/24 Principal diagnosis: Reason for follow-up is fever Patient is a 84-year-old male with a past medical history significant for COPD hypertension hyperlipidemia osteoarthritis prostate disorder patient presenting with dysuria and frequent urination did have a fever prompting this consultation. On today's evaluation that is 07/03/2024, patient has been afebrile, patient is breathing comfortably and is currently on room air, patient denies having any significant cough no chest pain shortness of breath, patient denies nausea vomiting or diarrhea and no abdominal pain, feeling better no new symptoms. Patient white count is 9.6, creatinine is 1.68 Objective - Vital Signs Vital signs: Vital Signs Temp 98 F 07/03/24 12:00 Pulse 62 07/03/24 12:00 Resp 17 07/03/24 12:00 BP 116/56 07/03/24 12:00 Pulse Ox 97 07/03/24 12:00 FiO2 21 06/23/24 08:36 Intake & Output 07/02/24 07/03/24 07/03/24 18:59 06:59 18:59 Intake Total 396 339.856 Output Total 1500 Balance 396 -1500 339.856 Weight 90.4 kg Intake: IV 10 Invasive Line 3 10 Intake, IV Titration 221.856 Amount Heparin Sod,Pork in 0.45% 221.856 NaCl 25,000 unit In 0.45 % NaCl 1 250ml.bag @ 11.1 UNITS/KG/HR 10.001 mls/ hr IV .Q24H [facility] Rx#: [id number] Oral [id number] Output: Urine 1500 Other: Voiding Method External Catheter External Catheter External Catheter # Voids 1 # Bowel Movements 1 1 - Exam GENERAL DESCRIPTION: An elderly male lying in bed in no distress RESPIRATORY SYSTEM: Unlabored breathing , decreased breath sounds at bases HEART: S1 S2 regular rate and rhythm , ABDOMEN: Soft , no tenderness EXTREMITIES: No edema feet - Labs CBC & Chem 7: 07/03/24 06:58 07/03/24 06:58 Labs: Abnormal Lab Results - Last 24 Hours (Table) 07/02/24 07/03/24 07/03/24 Range/Units 17:47 00:29 06:58 RBC 3.33 L (4.30-5.90) m/uL Hgb 9.8 L (13.0-17.5) gm/dL Hct 31.2 L (39.0-53.0) % Lymphocytes # 0.9 L (1.0-4.8) k/uL PT (10.0-12.5) sec INR (<1.2) APTT 73.8 H 66.7 H (22.0-30.0) sec Potassium (3.5-5.1) mmol/L BUN (9-20) mg/dL Creatinine (0.66-1.25) mg/dL 07/03/24 07/03/24 Range/Units 06:58 06:58 RBC (4.30-5.90) m/uL Hgb (13.0-17.5) gm/dL Hct (39.0-53.0) % Lymphocytes # (1.0-4.8) k/uL PT 19.5 H (10.0-12.5) sec INR 1.9 H (<1.2) APTT 64.7 H (22.0-30.0) sec Potassium 5.2 H (3.5-5.1) mmol/L BUN 51 H (9-20) mg/dL Creatinine 1.68 H (0.66-1.25) mg/dL Assessment and Plan (1) Fever Status: Acute Code(s): R50.9 - FEVER, UNSPECIFIED SNOMED Code(s): 245883399 (2) UTI (urinary tract infection) Status: Acute Code(s): N39.0 - URINARY TRACT INFECTION, SITE NOT SPECIFIED SNOMED Code(s): 04346406 Plan: 1patient with a fever in this patient with initial presentation to the hospital with some urinary frequency and burning with initial concern for possible UTI however patient UA shows mostly hematuria and no pyuria patient did have improvement of his fever pattern patient also have CT of abdominal pelvis with oral contrast did not show any acute intra-abdominal pathology there was concern for possible pulmonary infiltrate, Question related to the fluid versus atypical infection he did tested negative for COVID RSV and influenza 2patient did have resolution of his fever the patient white count has normalized, has received adequate antibiotics and no need for antibiotics on discharge Dictation was produced using [employer] dictation software. please excuse any grammatical, word or spelling errors. Time with Patient: Less than 30
--- NOTE | 2024-07-17 16:14 | US ---
Report Patient: Pete Mckinley Ordering Physician: Unknown, Unknown ID: [id number] Phone, Pager: Phone: N/A Pager: N/A : [phone] Age/Gender: 84Y, N/A Primary Location: N/A Procedure: US kidneys/renal and bladder Study Date: 06/21/2024 7:18:00 PM EXAMINATION TYPE: US kidneys/renal and bladder DATE OF EXAM: 06/21/2024 COMPARISON: NONE CLINICAL INDICATION: 84-year-old DOMINGO, polyuria TECHNIQUE: Multiple sonographic images of the kidneys and bladder are obtained. FINDINGS: Limited detailed assessment of the right kidney due to bowel gas, estimated at 6.7 cm. No hydronephro sis. Unable to visualize the left kidney for assessment. Partially distended bladder shows no gross abnormality. IMPRESSION: Significant exam limitations. Unable to visualize the left kidney. Limited detailed assessment of the right kidney without hydronephrosis on the right.
--- NOTE | 2024-08-06 08:45 | XR ---
Patient: Pete Mckinley C Ordering Physician: Unknown, Unknown ID: [id number] Phone, Pager: Phone: N/A Pager: N/A : [phone] Age/Gender: 84Y, M Primary Location: N/A Procedure: XR chest 2V Study D ate: 06/21/2024 11:32:20 AM EXAMINATION TYPE: XR chest 2V DATE OF EXAM: 06/21/2024 COMPARISON: NONE HISTORY: Shortness of breath TECHNIQUE: Frontal and lateral views of the chest are obtained. FINDINGS: Scattered senescent parenchymal changes noted. Hyperinflation compatible with COPD. No evidence for infiltrate. No evidence for atelectasis. There is pulmonary venous congestion noted with mild perihilar haziness. There is cardiomegaly withou t sizable effusion. Mediastinal structures are stable and grossly unremarkable. No evidence for hilar prominence. Degenerative changes dorsal spine. IMPRESSION: 1. There is pulmonary venous congestion noted with mild perihilar haziness. There is cardiomegaly wit hout sizable effusion.
== END 2024-07-03 16:30 | DRG 682 ==
LOC: 5NMEDONC 13:10 → 3SCARD 06-25 19:55
PROVIDERS: ADMIT Internal Medicine; ATTEND Internal Medicine
DX: N17.0 Acute kidney failure with tubular necrosis (principal); I50.33 Acute on chronic diastolic (congestive) heart failure; J96.01 Acute respiratory failure with hypoxia; J18.9 Pneumonia, unspecified organism; I13.0 Hypertensive heart and chronic kidney disease with heart failure and stage 1 through stage 4 chronic kidney disease, or unspecified chronic kidney disease; E87.20 Acidosis, unspecified; N39.0 Urinary tract infection, site not specified; J44.0 Chronic obstructive pulmonary disease with (acute) lower respiratory infection; Z66 Do not resuscitate; K44.9 Diaphragmatic hernia without obstruction or gangrene; R35.0 Frequency of micturition; I87.8 Other specified disorders of veins; E78.5 Hyperlipidemia, unspecified; N18.30 Chronic kidney disease, stage 3 unspecified; E86.1 Hypovolemia; Z87.891 Personal history of nicotine dependence; Z20.822 Contact with and (suspected) exposure to COVID-19; E86.0 Dehydration; E87.5 Hyperkalemia; I05.0 Rheumatic mitral stenosis; L89.152 Pressure ulcer of sacral region, stage 2; M19.90 Unspecified osteoarthritis, unspecified site; Z79.01 Long term (current) use of anticoagulants; Z79.899 Other long term (current) drug therapy; Z85.46 Personal history of malignant neoplasm of prostate; Z95.0 Presence of cardiac pacemaker; Z95.2 Presence of prosthetic heart valve; Z88.8 Allergy status to other drugs, medicaments and biological substances; Z87.01 Personal history of pneumonia (recurrent)
CPT/HCPCS: 71045; 71046; 74176; 76770; 80048; 80053; 81001; 82272; 83735; 83880; 84145; 85025; 85027; 85610; 85730; 87040; 87086; 87636; 93005; 94640; 94760; 96374; 96375; 99291

== ENCOUNTER 2024-08-27 16:39 | Inpatient (IN) | payer MEDICARE ==
--- NOTE | 2024-08-27 16:48 | ED ---
SOB HPI - General Stated Complaint: MUNIRA Time Seen by Provider: 08/27/24 16:42 Source: RN notes reviewed, old records reviewed Mode of arrival: EMS Limitations: no limitations - History of Present Illness Initial Comments: This is an 84-year-old male to ER for evaluation of severe shortness of breath patient states he has history of COPD and has had difficulty breathing despite breathing treatments at home without he feels improved on arrival to the hospital by EMS and she was given a long breathing treatment and breathing treatment on arrival. No chest pain MD Complaint: shortness of breath -: days(s) Severity: severe Severity scale (1-10): 8 Quality: dull Consistency: constant, other Improves With: bronchodilators (Improving) Worsens With: exertion Known History Of: COPD Context: recent URI, anxiety, recent illness Associated Symptoms: denies other symptoms - Related Data Home Medications Medication Instructions Recorded Confirmed amLODIPine [Norvasc] 5 mg PO BID 05/14/19 09/01/24 Atorvastatin [Lipitor] 40 mg PO HS 09/19/23 09/01/24 Loratadine [Claritin] 10 mg PO DAILY 09/19/23 09/01/24 Ferrous Sulfate [Iron (65 MG 325 mg PO DAILY 08/27/24 09/01/24 Elemental)] HYDROcodone/APAP 5-325MG [[place] 1 tab PO BID PRN 08/27/24 09/01/24 5-325] Warfarin [Coumadin] 2.5 mg PO HS 08/27/24 09/01/24 predniSONE See Taper PO DIRECTED 09/01/24 09/01/24 Previous Rx's Medication Instructions Recorded Amiodarone [Cordarone] 200 mg PO DAILY tab 07/03/24 Budesonide-Formot 160-4.5 Mcg 2 puff INHALATION RT-BID each 07/03/24 [Symbicort 160-4.5 Mcg Inhaler] Cholecalciferol [Vitamin D3 (25 50 mcg PO DAILY tab 07/03/24 Mcg = 1000 Iu)] Metoprolol Tartrate [Lopressor] 50 mg PO BID tab 07/03/24 Nystatin 100,000 Unit/gm Powd 1 applic TOPICAL BID each 07/03/24 [Mycostatin Powder] Furosemide [Lasix] 20 mg PO DAILY #30 tab 08/30/24 Allergies Allergy/AdvReac Type Severity Reaction Status Date / Time dopamine Allergy "WAS TOLD Verified 09/01/24 13:01 NOT TO HAVE RX AGAIN,VERY ILL STATES ALMOST " methylprednisolone AdvReac Hallucinati Verified 09/01/24 13:01 [From Solu-Medrol] ons Review of Systems ROS Statement: Those systems with pertinent positive or pertinent negative responses have been documented in the HPI. ROS Other: All systems not noted in ROS Statement are negative. Past Medical History Past Medical History: Cancer, COPD, Hyperlipidemia, Hypertension, Osteoarthritis (OA), Pneumonia, Prostate Disorder Additional Past Medical History / Comment(s): ARRYTHYTHMIA,AORTIC VALVE REPLACEMENT,PROSTATE CANCER, History of Any Multi-Drug Resistant Organisms: None Reported Past Surgical History: Cardiac Valve Replacement, Pacemaker, Tonsillectomy Additional Past Surgical History / Comment(s): vasectomy. carotid artery. Permanent Pacemaker by Dr Clrak Past Anesthesia/Blood Transfusion Reactions: No Reported Reaction Type of Cardiac Device: Permanent Pacemaker Device Placement Date:: 10/30/2020 Past Psychological History: Depression Smoking Status: Former smoker Past Alcohol Use History: None Reported Past Drug Use History: None Reported - Past Family History Mother History Unknown: Yes Family Medical History: Cancer General Exam General appearance: alert, anxious, in distress Head exam: Present: atraumatic, normocephalic, normal inspection Eye exam: Present: normal appearance, PERRL, EOMI. Absent: scleral icterus, conjunctival injection, periorbital swelling ENT exam: Present: normal exam, mucous membranes moist Neck exam: Present: normal inspection. Absent: tenderness, meningismus, lymphadenopathy Respiratory exam: Present: normal lung sounds bilaterally. Absent: respiratory distress, wheezes, rales, rhonchi, stridor Cardiovascular Exam: Present: regular rate, normal rhythm, normal heart sounds. Absent: systolic murmur, diastolic murmur, rubs, gallop, clicks GI/Abdominal exam: Present: soft, normal bowel sounds. Absent: distended, tenderness, guarding, rebound, rigid Extremities exam: Present: normal inspection, full ROM, normal capillary refill. Absent: tenderness, pedal edema, joint swelling, calf tenderness Back exam: Present: normal inspection Neurological exam: Present: alert, oriented X3, CN II-XII intact Psychiatric exam: Present: normal affect, normal mood Skin exam: Present: warm, dry, intact, normal color. Absent: rash Course Vital Signs 08/27/24 08/27/24 08/27/24 16:51 16:54 18:04 Temperature 98 F Pulse Rate 68 59 L Respiratory 20 24 Rate Blood Pressure 137/59 O2 Sat by Pulse 97 Oximetry 08/27/24 08/27/24 08/27/24 18:16 19:00 20:00 Temperature Pulse Rate 62 60 60 Respiratory 20 24 Rate Blood Pressure 132/57 128/47 O2 Sat by Pulse 95 92 L Oximetry - Reevaluation(s) Reevaluation #1: 08/27/24 16:47 Medical records reviewed Reevaluation #2: 08/27/24 18:58 Patient symptoms mildly improved but he does not feel comfortable with discharge Reevaluation #3: 08/27/24 18:58 Patient informed of results and questions answered Reevaluation #4: Was pt. sent in by a medical professional or institution (, [facility], [employer]ER, urgent care, hospital, or senior living...) When possible be specific @ -no Did you speak to anyone other than the patient for history (EMS, parent, family, police, friend...)? What history was obtained from this source @ -no Did you review nursing and triage notes (agree or disagree)? Why? @ -agree Are old charts reviewed (outside hosp., previous admission, EMS record, old EKG, old radiological studies, urgent care reports/EKG's, senior living records)? Report findings @ -yes Differential Diagnosis (chest pain, altered mental status, abdominal pain women, abdominal pain men, vaginal bleeding, weakness, fever, dyspnea, syncope, headache, dizziness, GI bleed, back pain, seizure, CVA, palpatations, mental health, musculoskeletal)? @ -prior EKG interpreted by me (3pts min.). @ -yes X-rays interpreted by me (1pt min.). @ -yes ne significant CHF CT interpreted by me (1pt min.). @ -no U/S interpreted by me (1pt. min.). @ -no What testing was considered but not performed or refused? (CT, X-rays, U/S, labs)? Why? @ -none What meds were considered but not given or refused? Why? @ -none Did you discuss the management of the patient with other professionals (professionals i.e. Dr., PA, CHIEF GREEN OFFICER, lab, RT, psych nurse, social service liaison, speech language pathology assistant, teacher, armed security officer, rehabilitation case coordinator)? Give summary @ -no Was smoking cessation discussed for >3mins.? @ -no Was critical care preformed (if so, how long)? @ -yes31 Were there social determinants of health that impacted care today? How? (Homelessness, low income, unemployed, alcoholism, drug addiction, transportation, low edu. Level, literacy, decrease access to med. care, [place] [facility], rehab)? @ -none Was there de-escalation of care discussed even if they declined (Discuss DNR or withdrawal of care, Hospice)? DNR status @ -no What co-morbidities impacted this encounter? (DM, HTN, Smoking, COPD, CAD, Cancer, CVA, ARF, Chemo, Hep., AIDS, mental health diagnosis, sleep apnea, morbid obesity)? @ -none Was patient admitted / discharged? Hospital course, mention meds given and route, prescriptions, significant lab abnormalities, going to OR and other pertinent info. @ - 84 male to the ER for evaluation of severe COPD with CHF patient will be admitted for further evaluation supportive care Admitted Undiagnosed new problem with uncertain prognosis? @ -no Drug Therapy requiring intensive monitoring for toxicity (Heparin, Nitro, Insulin, Cardizem)? @ -no Were any procedures done? @ -no Diagnosis/symptom? @ -COPD CHF severe Acute, or Chronic, or Acute on Chronic? @ -Acute Uncomplicated (without systemic symptoms) or Complicated (systemic symptoms)? @ -Complicated Side effects of treatment? @ -no Exacerbation, Progression, or Severe Exacerbation? @ -exacerbation Poses a threat to life or bodily function? How? (Chest pain, [place], [place], pneumonia, PE, COPD, DKA, ARF, appy, cholecystitis, CVA, Diverticulitis, Homicidal, Suicidal, threat to staff... and all critical care pts) @ -yes extremes of age Reevaluation #5: Differential Dyspnea: Coronary syndrome, arrhythmia, tamponade, asthma, COPD, pulmonary embolism, pneumonia, pneumothorax, pulmonary effusion, anaphylaxis, diabetic ketoacidosis, flailed chest, pulmonary contusion, diaphragmatic rupture, anemia, neuromuscular, this is not meant to be an all-inclusive list. - Consultations Consultation #1: Spoke with [facility] who agrees to admit this patient Medical Decision Making - Medical Decision Making 84 male to the ER for evaluation of severe COPD with CHF patient will be admitted for further evaluation supportive care - Lab Data Result diagrams: 08/30/24 06:13 08/30/24 06:13 Lab Results 08/27/24 08/27/24 08/27/24 Range/Units 17:08 17:08 17:08 WBC 11.6 H (3.8-10.6) k/uL RBC 3.41 L (4.30-5.90) m/uL Hgb 9.9 L (13.0-17.5) gm/dL Hct 31.9 L (39.0-53.0) % MCV 93.5 (80.0-100.0) fL MCH 29.1 (25.0-35.0) pg MCHC 31.1 (31.0-37.0) g/dL RDW 15.0 (11.5-15.5) % Plt Count 211 (150-450) k/uL MPV 8.6 Immature Gran % (Auto) % Absolute Nucleated RBC % Neutrophils % 82 % Lymphocytes % 9 % Monocytes % 6 % Eosinophils % 1 % Basophils % 1 % Immature Gran # (0.00-0.04) X 10*3/uL Neutrophils # 9.5 H (1.3-7.7) k/uL Lymphocytes # 1.0 (1.0-4.8) k/uL Monocytes # 0.7 (0-1.0) k/uL Eosinophils # 0.1 (0-0.7) k/uL Basophils # 0.1 (0-0.2) k/uL NRBC/100 WBC Diff (0.00-0.01) X 10*3/uL Hypochromasia Slight PT 31.5 H (10.0-12.5) sec INR 3.2 H (<1.2) APTT 47.1 H (22.0-30.0) sec Sodium 138 (137-145) mmol/L Potassium 5.8 H (3.5-5.1) mmol/L Chloride 111 H (98-107) mmol/L Carbon Dioxide 21 L (22-30) mmol/L Anion Gap 6 mmol/L BUN 47 H (9-20) mg/dL Creatinine 1.81 H (0.66-1.25) mg/dL Est GFR (CKD-EPI) (>=60) Est GFR (CKD-EPI)AfAm 39 (>60 ml/min/1.73 sqM) Est GFR (CKD-EPI)NonAf 34 (>60 ml/min/1.73 sqM) BUN/Creatinine Ratio (12.00-20.00) Ratio Glucose 100 H (74-99) mg/dL Calcium 9.1 (8.4-10.2) mg/dL Phosphorus (2.4-5.1) mg/dL Magnesium 2.1 (1.6-2.3) mg/dL Total Bilirubin 0.7 (0.2-1.3) mg/dL AST 25 (17-59) U/L ALT 11 (4-49) U/L Alkaline Phosphatase 97 (38-126) U/L Troponin I (0.000-0.034) ng/mL NT-Pro-B Natriuret Pep 7800 pg/mL Total Protein 7.7 (6.3-8.2) g/dL Albumin 3.7 (3.5-5.0) g/dL Globulin (1.6-3.3) g/dL Albumin/Globulin Ratio (1.60-3.17) Ratio Lipase (14-60) U/L Procalcitonin (0.02-0.50) ng/mL Influenza Type A (PCR) (Not Detectd) Influenza Type B (PCR) (Not Detectd) RSV (PCR) (Not Detectd) SARS-CoV-2 (PCR) (Not Detectd) 08/27/24 08/27/24 08/28/24 Range/Units 17:08 19:59 00:32 WBC (3.8-10.6) k/uL RBC (4.30-5.90) m/uL Hgb (13.0-17.5) gm/dL Hct (39.0-53.0) % MCV (80.0-100.0) fL MCH (25.0-35.0) pg MCHC (31.0-37.0) g/dL RDW (11.5-15.5) % Plt Count (150-450) k/uL MPV Immature Gran % (Auto) % Absolute Nucleated RBC % Neutrophils % % Lymphocytes % % Monocytes % % Eosinophils % % Basophils % % Immature Gran # (0.00-0.04) X 10*3/uL Neutrophils # (1.3-7.7) k/uL Lymphocytes # (1.0-4.8) k/uL Monocytes # (0-1.0) k/uL Eosinophils # (0-0.7) k/uL Basophils # (0-0.2) k/uL NRBC/100 WBC Diff (0.00-0.01) X 10*3/uL Hypochromasia PT (10.0-12.5) sec INR (<1.2) APTT (22.0-30.0) sec Sodium (137-145) mmol/L Potassium (3.5-5.1) mmol/L Chloride (98-107) mmol/L Carbon Dioxide (22-30) mmol/L Anion Gap mmol/L BUN (9-20) mg/dL Creatinine (0.66-1.25) mg/dL Est GFR (CKD-EPI) (>=60) Est GFR (CKD-EPI)AfAm (>60 ml/min/1.73 sqM) Est GFR (CKD-EPI)NonAf (>60 ml/min/1.73 sqM) BUN/Creatinine Ratio (12.00-20.00) Ratio Glucose (74-99) mg/dL Calcium (8.4-10.2) mg/dL Phosphorus (2.4-5.1) mg/dL Magnesium (1.6-2.3) mg/dL Total Bilirubin (0.2-1.3) mg/dL AST (17-59) U/L ALT (4-49) U/L Alkaline Phosphatase (38-126) U/L Troponin I 0.017 0.019 0.022 (0.000-0.034) ng/mL NT-Pro-B Natriuret Pep pg/mL Total Protein (6.3-8.2) g/dL Albumin (3.5-5.0) g/dL Globulin (1.6-3.3) g/dL Albumin/Globulin Ratio (1.60-3.17) Ratio Lipase (14-60) U/L Procalcitonin (0.02-0.50) ng/mL Influenza Type A (PCR) (Not Detectd) Influenza Type B (PCR) (Not Detectd) RSV (PCR) (Not Detectd) SARS-CoV-2 (PCR) (Not Detectd) 08/28/24 08/28/24 08/28/24 Range/Units 02:22 04:24 04:24 WBC 11.33 H (3.8-10.6) k/uL RBC 3.31 L (4.30-5.90) m/uL Hgb 9.5 L (13.0-17.5) gm/dL Hct 31.9 L (39.0-53.0) % MCV 96.4 (80.0-100.0) fL MCH 28.7 (25.0-35.0) pg MCHC 29.8 L (31.0-37.0) g/dL RDW 15.2 H (11.5-15.5) % Plt Count 192 (150-450) k/uL MPV 10.7 Immature Gran % (Auto) 0.40 % Absolute Nucleated RBC 0 % Neutrophils % 80.0 % Lymphocytes % 7.5 % Monocytes % 10.2 % Eosinophils % 1.1 % Basophils % 0.8 % Immature Gran # 0.04 (0.00-0.04) X 10*3/uL Neutrophils # 9.06 H (1.3-7.7) k/uL Lymphocytes # 0.85 L (1.0-4.8) k/uL Monocytes # 1.16 H (0-1.0) k/uL Eosinophils # 0.13 (0-0.7) k/uL Basophils # 0.09 (0-0.2) k/uL NRBC/100 WBC Diff 0 (0.00-0.01) X 10*3/uL Hypochromasia PT (10.0-12.5) sec INR (<1.2) APTT (22.0-30.0) sec Sodium 139 (137-145) mmol/L Potassium 5.3 (3.5-5.1) mmol/L Chloride 105 (98-107) mmol/L Carbon Dioxide 23.1 (22-30) mmol/L Anion Gap 10.90 mmol/L BUN 45.7 H (9-20) mg/dL Creatinine 1.9 H (0.66-1.25) mg/dL Est GFR (CKD-EPI) 34 L (>=60) Est GFR (CKD-EPI)AfAm (>60 ml/min/1.73 sqM) Est GFR (CKD-EPI)NonAf (>60 ml/min/1.73 sqM) BUN/Creatinine Ratio 24.05 H (12.00-20.00) Ratio Glucose 96 (74-99) mg/dL Calcium 8.7 (8.4-10.2) mg/dL Phosphorus 4.6 (2.4-5.1) mg/dL Magnesium 2.2 (1.6-2.3) mg/dL Total Bilirubin 0.3 (0.2-1.3) mg/dL AST 20 (17-59) U/L ALT 8 L (4-49) U/L Alkaline Phosphatase 85 (38-126) U/L Troponin I (0.000-0.034) ng/mL NT-Pro-B Natriuret Pep pg/mL Total Protein 7.1 (6.3-8.2) g/dL Albumin 3.4 L (3.5-5.0) g/dL Globulin 3.7 H (1.6-3.3) g/dL Albumin/Globulin Ratio 0.92 L (1.60-3.17) Ratio Lipase 38 (14-60) U/L Procalcitonin (0.02-0.50) ng/mL Influenza Type A (PCR) Not Detected (Not Detectd) Influenza Type B (PCR) Not Detected (Not Detectd) RSV (PCR) Not Detected (Not Detectd) SARS-CoV-2 (PCR) Not Detected (Not Detectd) 08/28/24 08/28/24 08/29/24 Range/Units 08:27 08:27 05:06 WBC (3.8-10.6) k/uL RBC (4.30-5.90) m/uL Hgb (13.0-17.5) gm/dL Hct (39.0-53.0) % MCV (80.0-100.0) fL MCH (25.0-35.0) pg MCHC (31.0-37.0) g/dL RDW (11.5-15.5) % Plt Count (150-450) k/uL MPV Immature Gran % (Auto) % Absolute Nucleated RBC % Neutrophils % % Lymphocytes % % Monocytes % % Eosinophils % % Basophils % % Immature Gran # (0.00-0.04) X 10*3/uL Neutrophils # (1.3-7.7) k/uL Lymphocytes # (1.0-4.8) k/uL Monocytes # (0-1.0) k/uL Eosinophils # (0-0.7) k/uL Basophils # (0-0.2) k/uL NRBC/100 WBC Diff (0.00-0.01) X 10*3/uL Hypochromasia PT 29.8 H 33.4 H (10.0-12.5) sec INR 3.0 H 3.4 H (<1.2) APTT (22.0-30.0) sec Sodium (137-145) mmol/L Potassium (3.5-5.1) mmol/L Chloride (98-107) mmol/L Carbon Dioxide (22-30) mmol/L Anion Gap mmol/L BUN (9-20) mg/dL Creatinine (0.66-1.25) mg/dL Est GFR (CKD-EPI) (>=60) Est GFR (CKD-EPI)AfAm (>60 ml/min/1.73 sqM) Est GFR (CKD-EPI)NonAf (>60 ml/min/1.73 sqM) BUN/Creatinine Ratio (12.00-20.00) Ratio Glucose (74-99) mg/dL Calcium (8.4-10.2) mg/dL Phosphorus (2.4-5.1) mg/dL Magnesium (1.6-2.3) mg/dL Total Bilirubin (0.2-1.3) mg/dL AST (17-59) U/L ALT (4-49) U/L Alkaline Phosphatase (38-126) U/L Troponin I (0.000-0.034) ng/mL NT-Pro-B Natriuret Pep pg/mL Total Protein (6.3-8.2) g/dL Albumin (3.5-5.0) g/dL Globulin (1.6-3.3) g/dL Albumin/Globulin Ratio (1.60-3.17) Ratio Lipase (14-60) U/L Procalcitonin 0.15 (0.02-0.50) ng/mL Influenza Type A (PCR) (Not Detectd) Influenza Type B (PCR) (Not Detectd) RSV (PCR) (Not Detectd) SARS-CoV-2 (PCR) (Not Detectd) 08/29/24 08/29/24 Range/Units 07:03 07:03 WBC 13.3 H (3.8-10.6) k/uL RBC 3.40 L (4.30-5.90) m/uL Hgb 10.0 L (13.0-17.5) gm/dL Hct 32.7 L (39.0-53.0) % MCV 96.2 (80.0-100.0) fL MCH 29.5 (25.0-35.0) pg MCHC 30.7 L (31.0-37.0) g/dL RDW 15.1 (11.5-15.5) % Plt Count 219 (150-450) k/uL MPV 8.8 Immature Gran % (Auto) % Absolute Nucleated RBC % Neutrophils % 93 % Lymphocytes % 4 % Monocytes % 3 % Eosinophils % 0 % Basophils % 0 % Immature Gran # (0.00-0.04) X 10*3/uL Neutrophils # 12.3 H (1.3-7.7) k/uL Lymphocytes # 0.5 L (1.0-4.8) k/uL Monocytes # 0.4 (0-1.0) k/uL Eosinophils # 0.1 (0-0.7) k/uL Basophils # 0.0 (0-0.2) k/uL NRBC/100 WBC Diff (0.00-0.01) X 10*3/uL Hypochromasia Moderate PT (10.0-12.5) sec INR (<1.2) APTT (22.0-30.0) sec Sodium 140 (137-145) mmol/L Potassium 5.5 H (3.5-5.1) mmol/L Chloride 105 (98-107) mmol/L Carbon Dioxide 23 (22-30) mmol/L Anion Gap 12 mmol/L BUN 56 H (9-20) mg/dL Creatinine 2.02 H (0.66-1.25) mg/dL Est GFR (CKD-EPI) (>=60) Est GFR (CKD-EPI)AfAm 34 (>60 ml/min/1.73 sqM) Est GFR (CKD-EPI)NonAf 29 (>60 ml/min/1.73 sqM) BUN/Creatinine Ratio (12.00-20.00) Ratio Glucose 142 H (74-99) mg/dL Calcium 8.5 (8.4-10.2) mg/dL Phosphorus (2.4-5.1) mg/dL Magnesium 2.2 (1.6-2.3) mg/dL Total Bilirubin 0.3 (0.2-1.3) mg/dL AST 22 (17-59) U/L ALT 13 (4-49) U/L Alkaline Phosphatase 79 (38-126) U/L Troponin I (0.000-0.034) ng/mL NT-Pro-B Natriuret Pep pg/mL Total Protein 7.6 (6.3-8.2) g/dL Albumin 3.8 (3.5-5.0) g/dL Globulin 3.8 (1.6-3.3) g/dL Albumin/Globulin Ratio 1.0 (1.60-3.17) Ratio Lipase (14-60) U/L Procalcitonin (0.02-0.50) ng/mL Influenza Type A (PCR) (Not Detectd) Influenza Type B (PCR) (Not Detectd) RSV (PCR) (Not Detectd) SARS-CoV-2 (PCR) (Not Detectd) - EKG Data -: EKG Interpreted by Me (EKG is paced 60 QRS 185 QTc 490) - Radiology Data Radiology results: report reviewed (Chest x-ray is positive for CHF), image reviewed Critical Care Time Critical Care Time: Yes Total Critical Care Time: 31 Disposition Clinical Impression: Shortness of breath, Interstitial edema, Acute exacerbation of chronic obstructive pulmonary disease Disposition: ADMITTED IP TO THIS HOSP Condition: Serious Is patient prescribed a controlled substance at d/c from ED?: No Time of Disposition: 18:55
[2024-08-27 17:36] LABS: Basophils # (A) 0.1 k/uL (0-0.2); Basophils % (A) 1 %; Eosinophils # (A) 0.1 k/uL (0-0.7); Eosinophils % (A) 1 %; HCT 31.9 % (39.0-53.0); HGB 9.9 gm/dL (13.0-17.5); Hypochromasia Slight; Lymphocytes % (A) 9 %; MCH 29.1 pg (25.0-35.0); MCHC 31.1 g/dL (31.0-37.0); MCV 93.5 fL (80.0-100.0); Mean Platelet Volume 8.6; Monocytes # (A) 0.7 k/uL (0-1.0); Monocytes % (A) 6 %; Neutrophils # (A) 9.5 k/uL (1.3-7.7); Neutrophils % (A) 82 %; Platelet Count 211 k/uL (150-450); RBC 3.41 m/uL (4.30-5.90); WBC 11.6 k/uL (3.8-10.6)
[2024-08-27 17:42] LABS: ALT 11 U/L (4-49); AST 25 U/L (17-59); African American GFR (CKD) 39 (>60 ml/min/1.73 sqM); Albumin 3.7 g/dL (3.5-5.0); Alkaline Phosphatase 97 U/L (38-126); Anion Gap 6 mmol/L; Blood Urea Nitrogen 47 mg/dL (9-20); Calcium 9.1 mg/dL (8.4-10.2); Carbon Dioxide 21 mmol/L (22-30); Chloride 111 mmol/L (98-107); Glucose 100 mg/dL (74-99); Magnesium 2.1 mg/dL (1.6-2.3); Non-African American GFR(CKD) 34 (>60 ml/min/1.73 sqM); Potassium 5.8 mmol/L (3.5-5.1); Sodium 138 mmol/L (137-145); Total Bilirubin 0.7 mg/dL (0.2-1.3); Total Protein 7.7 g/dL (6.3-8.2)
[2024-08-27 17:51] LABS: NT-Pro-B-Type Natriuretic Pept 7800 pg/mL
[2024-08-27 18:01] LABS: INR 3.2 (<1.2); Partial Thromboplastin Time 47.1 sec (22.0-30.0); Prothrombin Time 31.5 sec (10.0-12.5)
--- NOTE | 2024-08-27 18:01 | XR ---
EXAMINATION TYPE: XR chest 1V portable DATE OF EXAM: 08/27/2024 COMPARISON: 06/27/2024 INDICATION: Short of breath TECHNIQUE: Single frontal view of the chest is obtained. FINDINGS: The heart size is normal. The pulmonary vasculature is prominent. Scattered diffuse increased lung markings are present bilaterally. Small right pleural effusions at t he costophrenic angle. Previous right suprahilar infiltrate is diminished. Chin overlies the upper joe ng field limiting the evaluation. IMPRESSION: 1. Prominent pulmonary vascular markings and a small right pleural effusion. Correlate for volume ove rload. Follow-up recommended [facility], Workstation: [facility], 08/27/2024 5:58 PM
[2024-08-27] MEDS: IPRATROPIUM-ALBUTEROL 3 ML NEB INHALATION STA ×2 (18:03)
[2024-08-27] MEDS ORDERED: NALOXONE 0.4 MG/ML 1 ML VIAL IVP PRN (18:56)
[2024-08-27] MEDS ORDERED: NALOXONE 0.4 MG/ML 1 ML VIAL IV PRN (18:56)
[2024-08-27] MEDS ORDERED: ONDANSETRON 4 MG/2 ML VIAL IVP PRN ×2 (18:56)
[2024-08-27] MEDS ORDERED: MORPHINE SULFATE 4 MG/ML SYRINGE IV PRN (18:56)
[2024-08-27] MEDS ORDERED: ALBUTEROL NEBULIZED 2.5 MG/3 ML INHALATION PRN (18:56)
[2024-08-27] MEDS: SODIUM CHLORIDE 0.9% 1,000 ML IV SCH (19:59)
[2024-08-27] MEDS: FUROSEMIDE 10 MG/ML 10 ML VIAL IV STA (20:01)
[2024-08-27] MEDS: SODIUM BICARB 8.4% 50 ML SYR (1 MEQ/ML) IV STA (20:09)
[2024-08-27] MEDS: DEXTROSE 50% SYRINGE 50 ML IVP STA (20:09)
[2024-08-27] MEDS: INSULIN REGULAR 100 UNIT/ML VIAL (IV) IV ONE (20:10)
[2024-08-27] MEDS ORDERED: HYDROcodone/APAP 5-325MG 1 EACH TAB PO PRN (22:25)
[2024-08-27] MEDS: WARFARIN 2.5 MG TAB PO SCH (22:52)
[2024-08-27] MEDS: SODIUM ZIRCONIUM CYCLOSILICATE 10 GM PACKET PO ONE (22:52)
[2024-08-28] MEDS: SYMBICORT 160-4.5 MCG INHALER INHALATION SCH (01:20)
--- NOTE | 2024-08-28 02:23 | P.CNPUL ---
History of Present Illness Consult date: 08/28/24 Requesting physician: Atilio Leon Reason for consult: COPD Chief complaint: Increased work of breathing History of present illness: Patient is an 84-year-old male with past medical history significant for COPD, hyperlipidemia, hypertension, valvular heart disease and previous mechanical aortic valve replacement, pacemaker, and prostate disorder. Primary care provider is Dr. Coleman Nugent. Patient states that over the last 2 to 3 days he has had increased shortness of breath while ambulating and at rest. This is associated with increased lower extremity swelling and 2 pound weight gain over the last couple day. He sleeps in a chair. Denies any chest pain, heart palpitations, lightheadedness or syncopal events. Has a permanent pacemaker. States that his diuretics were stopped on his previous hospital admission May, because of his kidney function. Denies any chest pain, heart palpitations, lightheadedness or syncopal events. Patient also has history of COPD and remote history of tobacco use. Normally uses Symbicort inhaler and as needed albuterol HFA inhaler at home. Denies any home O2 use. Patient denies any recent sick contacts. Denies change in his chronic cough, sputum production, hemoptysis, fevers, chills. Chest x-ray done on admission showing cardiomegaly, pulmonary vascular congestion, and right costophrenic angle blunting consistent with small pleural effusion. Implanted pacemaker in left chest and sternotomy wires. CBC: WBC count 11.6, hemoglobin 9.9, hematocrit 31.9, platelets 211. INR 3.2. Patient does have history of mechanical aortic valve replacement. CMP: Sodium 138, potassium 5.8, chloride 111, serum bicarb 21, BUN 47, creatinine 1.81, glucose 100. LFTs unremarkable. Troponin 0.017, 0.019, and 0.022 respectively. NT proBNP 7800. Most recent available transthoracic echocardiogram from August, estimating preserved left ventricular ejection fraction of 55 to 60%, moderate concentric LVH, moderate mitral stenosis, and normally functioning mechanical aortic valve prosthesis. Patient did receive a dose of Lasix 60 mg in the ER department. Hyperkalemia was also treated with a K cocktail including 10 units of regular insulin, 1 amp D50 W, 1 amp sodium bicarbonate, and 1 dose of 10 g of Lokelma. EKG showing a ventricularly paced rhythm. On my evaluation, patient is currently resting comfortably on 2 L/min nasal cannula. SpO2 94%. Afebrile. Remaining vital signs are stable. Review of Systems Constitutional: Reports weight gain, Denies chills, Denies fever, Denies poor appetite, Denies weight loss Ears, nose, mouth and throat: Denies headache, Denies nasal congestion, Denies nasal discharge, Denies post-nasal drip, Denies sinus pain, Denies sinus pressure, Denies sore throat Cardiovascular: Reports leg edema, Reports shortness of breath, Denies chest pain, Denies irregular heart beat, Denies orthopnea, Denies palpitations, Denies paroxysmal nocturnal dyspnea, Denies syncope Respiratory: Reports as per HPI Gastrointestinal: Denies abdominal pain, Denies change in bowel habits, Denies diarrhea, Denies nausea, Denies vomiting Genitourinary: Denies dysuria Musculoskeletal: Denies limitation of motion Integumentary: Denies foot/leg ulcers, Denies rash Neurological: Denies seizures, Denies syncope Psychiatric: Denies anxiety, Denies depression Past Medical History Past Medical History: Cancer, Heart Failure, COPD, Hyperlipidemia, Hypertension, Osteoarthritis (OA), Pneumonia, Prostate Disorder Additional Past Medical History / Comment(s): ARRYTHYTHMIA,AORTIC VALVE REPLACEMENT,PROSTATE CANCER, History of Any Multi-Drug Resistant Organisms: None Reported Past Surgical History: Cardiac Valve Replacement, Pacemaker, Tonsillectomy Additional Past Surgical History / Comment(s): vasectomy. carotid artery. Permanent Pacemaker by Dr Clark Past Anesthesia/Blood Transfusion Reactions: No Reported Reaction Type of Cardiac Device: Permanent Pacemaker Device Placement Date:: 10/30/2020 Past Psychological History: Depression Smoking Status: Former smoker Past Alcohol Use History: None Reported Additional Past Alcohol Use History / Comment(s): STARTED SMOKING AT AGE 13 QUIT 1998 SMOKED1-2PPD Past Drug Use History: None Reported - Past Family History Mother History Unknown: Yes Family Medical History: Cancer Medications and Allergies Home Medications Medication Instructions Recorded Confirmed Type amLODIPine [Norvasc] 5 mg PO BID 05/14/19 08/27/24 History Atorvastatin [Lipitor] 40 mg PO HS 09/19/23 08/27/24 History Fluticasone Nasal [place] [Flonase 2 spray EA NOSTRIL DAILY 09/19/23 08/27/24 History Nasal [place]] Loratadine [Claritin] 10 mg PO DAILY 09/19/23 08/27/24 History Amiodarone [Cordarone] 200 mg PO DAILY tab 07/03/24 08/27/24 Rx Budesonide-Formot 160-4.5 Mcg 2 puff INHALATION RT-BID each 07/03/24 08/27/24 Rx [Symbicort 160-4.5 Mcg Inhaler] Cholecalciferol [Vitamin D3 (25 50 mcg PO DAILY tab 07/03/24 08/27/24 Rx Mcg = 1000 Iu)] Menthol-Zinc Oxide Oint 1 applic TOPICAL BID each 07/03/24 08/27/24 Rx [Calmoseptine Ointment] Metoprolol Tartrate [Lopressor] 50 mg PO BID tab 07/03/24 08/27/24 Rx Nystatin 100,000 Unit/gm Powd 1 applic TOPICAL BID each 07/03/24 08/27/24 Rx [Mycostatin Powder] Ferrous Sulfate [Feosol] 325 mg PO DAILY 08/27/24 08/27/24 History HYDROcodone/APAP 5-325MG [[place] 1 tab PO BID PRN 08/27/24 08/27/24 History 5-325] Warfarin [Coumadin] 2.5 mg PO HS 08/27/24 08/27/24 History Allergies Allergy/AdvReac Type Severity Reaction Status Date / Time dopamine Allergy "WAS TOLD Verified 08/27/24 19:37 NOT TO HAVE RX AGAIN,VERY ILL STATES ALMOST " methylprednisolone AdvReac Hallucinati Verified 08/27/24 19:37 [From [facility]] ons Physical Exam Vitals: Vital Signs Temp Pulse Pulse Resp BP BP Pulse Ox 08/27/24 22:30 65 08/27/24 21:36 97.5 F L 65 22 145/73 94 L 08/27/24 21:18 98.1 F 60 24 147/55 94 L 08/27/24 20:00 60 24 128/47 92 L 08/27/24 19:00 60 20 132/57 95 08/27/24 18:16 62 08/27/24 18:04 59 L 08/27/24 16:54 24 08/27/24 16:51 98 F 68 20 137/59 97 Intake and Output 1008/27/24 08/28/24 14:59 22:59 06:59 Other: Voiding Method External Catheter Weight 93.894 kg GENERAL EXAM: Alert, 84-year-old white male, in bed with head elevated, comfortable in no apparent distress. HEAD: Normocephalic and atraumatic EYES: Normal reaction of pupils, equal size. NOSE: Clear with pink turbinates. THROAT: No erythema or exudates. NECK: No masses, no JVD. CHEST: No chest wall deformity. LUNGS: Equal air entry with faint expiratory wheezes heard bilaterally througho ut. On 2 L/min nasal cannula. No conversational dyspnea or accessory muscle use while at rest CVS: S1 and S2 normal with no audible murmur, regular rhythm. No extra heart sounds ABDOMEN: No hepatosplenomegaly, active bowel sounds, no guarding or rigidity. SPINE: No scoliosis or deformity SKIN: No rashes CENTRAL NERVOUS SYSTEM: No focal deficits, tone is normal in all 4 extremities. EXTREMITIES: There is 1-2+ bilateral pitting lower extremity edema. No clubbing or cyanosis. Peripheral pulses are intact. Results - Laboratory Findings CBC and BMP: 08/27/24 17:08 08/27/24 17:08 PT/INR, D-dimer PT 31.5 sec (10.0-12.5) H 08/27/24 17:08 INR 3.2 (<1.2) H 08/27/24 17:08 Abnormal lab findings: Abnormal Labs 08/27/24 08/27/24 08/27/24 17:08 17:08 17:08 WBC 11.6 H RBC 3.41 L Hgb 9.9 L Hct 31.9 L Neutrophils # 9.5 H PT 31.5 H INR 3.2 H APTT 47.1 H Potassium 5.8 H Chloride 111 H Carbon Dioxide 21 L BUN 47 H Creatinine 1.81 H Glucose 100 H - Diagnostic Findings Chest x-ray: image reviewed Assessment and Plan Assessment: Suspect acute exacerbation of diastolic congestive heart failure Acute COPD exacerbation Acute hypoxemic respiratory failure, secondary to a combination of above, chest x-ray showing cardiomegaly, pulmonary vascular congestion, and right costophrenic angle blunting consistent with small pleural effusion. NT proBNP elevated at 7800 Acute on chronic kidney disease Hyperkalemia, treated with K cocktail in the ED Anemia of chronic disease Valvular heart disease, history of moderate mitral stenosis and previous mechanical aortic valve replacement. Chronically anticoagulated on warfarin Permanent pacemaker Hypertension History of hyperlipidemia Former tobacco dependence Plan: Patient's medications, labs, chest x-ray reviewed Continue supplemental oxygen to maintain oxygen saturation 92% or greater Continue Lasix 40 mg IV daily Monitor renal function and electrolytes Cardiology was consulted Start combination of DuoNebs [id number], Symbicort inhaler, and IV Solu- Medrol Check Cepheid 4 Plex GI prophylaxis: Protonix INR 3.2, Coumadin has already been restarted We will continue to follow I have personally seen and examined the patient, performed the documentation and the assessment and plan as written. Number of minutes spent on the visit:20 Time with Patient: Greater than 30
[2024-08-28] MEDS: PANTOPRAZOLE 40 MG TABLET PO SCH (06:29)
[2024-08-28 08:30] LABS: Basophils # (A) 0.09 X 10*3/uL (0.00-0.10); Basophils % (A) 0.8 %; Eosinophils # (A) 0.13 X 10*3/uL (0.04-0.35); Eosinophils % (A) 1.1 %; HCT 31.9 % (39.6-50.0); HGB 9.5 g/dL (13.0-17.0); Lymphocytes # (A) 0.85 X 10*3/uL (0.90-5.00); Lymphocytes % (A) 7.5 %; MCH 28.7 pg (27.0-32.0); MCHC 29.8 g/dL (32.0-37.0); MCV 96.4 FL (80.0-97.0); Mean Platelet Volume 10.7 FL (9.5-12.2); Monocytes # (A) 1.16 X 10*3/uL (0.20-1.00); Monocytes % (A) 10.2 %; NRBC Per 100 WBC 0 X 10*3/uL (0.00-0.01); Neutrophils # (A) 9.06 X 10*3/uL (1.80-7.70); Platelet Count 192 X 10*3/uL (140-440); RBC 3.31 X 10*6/uL (4.40-5.60); RDW 15.2 % (11.5-14.5); WBC 11.33 X 10*3/uL (4.50-10.00)
[2024-08-28 08:41] LABS: BUN/Creat Ratio 24.05 Ratio (12.00-20.00); Blood Urea Nitrogen 45.7 mg/dL (9.0-27.0); Chloride 105 mmol/L (96-109); Glucose 96 mg/dL (70-110); Lipase 38 U/L (14-60); Magnesium 2.2 mg/dL (1.5-2.4); Potassium 5.3 mmol/L (3.5-5.5); Sodium 139 mmol/L (135-145)
[2024-08-28 08:42] LABS: ALT 8 U/L (10-49); AST 20 U/L (14-35); Albumin 3.4 g/dL (3.8-4.9); Albumin/Globulin Ratio 0.92 Ratio (1.60-3.17); Alkaline Phosphatase 85 U/L (41-126); Calcium 8.7 mg/dL (8.7-10.3); Carbon Dioxide 23.1 mmol/L (21.6-31.8); Globulin 3.7 g/dL (1.6-3.3); Phosphorus 4.6 mg/dL (2.4-5.1); Total Bilirubin 0.3 mg/dL (0.3-1.2); Total Protein 7.1 g/dL (6.2-8.2)
[2024-08-28] MEDS: IPRATROPIUM-ALBUTEROL 3 ML NEB INHALATION SCH (08:48)
[2024-08-28] MEDS: methylPREDNISolone SOD SUCCI 40 MG/ML 1 ML VIAL IV SCH ×2 (09:00→20:16)
[2024-08-28] MEDS: FUROSEMIDE 10 MG/ML 4 ML VIAL IV SCH (09:00)
[2024-08-28] MEDS: NYSTATIN 100,000 UNIT/ML SUSP 500,000 UNIT/5 ML CUP PO SCH (09:01)
[2024-08-28] MEDS: AMIODARONE 200 MG TAB PO SCH (09:01)
[2024-08-28] MEDS: METOPROLOL TARTRATE 50 MG TAB PO SCH (09:01)
[2024-08-28] MEDS: amLODIPine 5 MG TAB PO SCH (09:01)
[2024-08-28 09:11] LABS: Prothrombin Time 29.8 sec (10.0-12.5)
--- NOTE | 2024-08-28 09:32 | CONS ---
CONSULTATION HISTORY OF PRESENT ILLNESS: This is an 84-year-old gentleman with history of COPD, hypertension, dyslipidemia, aortic stenosis, status post mechanical aortic valve replacement, status post permanent pacemaker, on long-term Coumadin, came to hospital complaining of worsening leg swelling, shortness of breath, and cough. He does not have any chest pain and at the time of my evaluation, his symptoms have improved. Troponins are negative. BUN is 47, creatinine is 1.8. Potassium is elevated at 5.8. PAST MEDICAL HISTORY: Significant for mechanical aortic valve, hypertension, COPD. CURRENT MEDICATIONS: Include, 1. Coumadin. 2. Iron. 3. Amlodipine. 4. Metoprolol. 5. Claritin. 6. Symbicort. 7. Lipitor. 8. Amiodarone. ALLERGIES: Dopamine and methylprednisolone. FAMILY HISTORY: Negative for premature coronary artery disease. SOCIAL HISTORY: Negative for smoking, EtOH abuse, or drug abuse. REVIEW OF SYSTEMS: review of systems has been performed. Pertinents as documented. PHYSICAL EXAMINATION: GENERAL: He appears comfortable at rest. VITAL SIGNS: Heart rate is 60 beats per minute. Blood pressure is 150/60, respiratory rate 16. NECK: There is no jugular venous distention. CHEST: Reveals bilateral rhonchi. HEART: Reveals first and second heart sounds. No gallop. Mechanical valve sound is heard. ABDOMEN: Soft. EXTREMITIES: Reveals bilateral pitting edema and chronic stasis changes. LABORATORY DATA: His BNP is elevated. Troponins are normal. ASSESSMENT: 1. Acute exacerbation of chronic congestive heart failure. 2. History of mechanical aortic valve. 3. Chronic obstructive pulmonary disease. 4. History of permanent pacemaker. PLAN: I am going to treat the patient with intravenous diuretics. Obtain a 2D echo. Obtain blood cultures given the prosthetic valve. The patient will be treated for COPD exacerbation also and we will adjust therapies based on how he responds to treatment. MMODL / IJN: [id number] /
--- NOTE | 2024-08-28 13:54 | CA ---
Transthoracic Echo Report Name: Pete Mckinley Age: 84 Gender: M : 1940 Exam Date: 08/28/2024 11:09 Exam Location: [place] [facility] Ht (in): 70 Wt (lb): 207 Ordering Physician: Marvin Hannah MD ([id number]) Attending/Referring Phys: Camden CURTIS Feather [employer]er Janell Salomon RDCS Procedure CPT: Indications: DOPPLER OF HEART Cardiac Hx: Shortness of breath and chest pain Technical Quality: Technically difficult study Contrast 1: Definity Total Dose (mL): 2 Contrast 2: Total Dose (mL): MEASUREMENTS (Male / Female) Normal Values 2D ECHO LV Diastolic Diameter PLAX 4.3 cm 4.2 - 5.9 / 3.9 - 5.3 cm LV Systolic Diameter PLAX 3.2 cm IVS Diastolic Thickness 1.2 cm 0.6 - 1.0 / 0.6 - 0.9 cm LVPW Diastolic Thickness 1.3 cm 0.6 - 1.0 / 0.6 - 0.9 cm LV Relative Wall Thickness 0.6 LVOT Diameter 2.0 cm LV Diastolic Volume MOD BP 128.9 cm??? 67 - 155 / 56 - 104 cm??? LV Systolic Volume MOD BP 77.5 cm??? 22 - 58 / 19 - 49 cm??? LV Ejection Fraction MOD BP 39.9 % >= 55 % LV Cardiac Index MOD BP 1418.9 cm???/min???m??? LV Diastolic Volume MOD 4C 129.2 cm??? LV Systolic Volume MOD 4C 81.2 cm??? LV Ejection Fraction MOD 4C 37.1 % LV Cardiac Index MOD 4C 1322.3 cm???/min???m??? LV Diastolic Length 4C 8.8 cm LV Systolic Length 4C 8.7 cm LV Diastolic Volume MOD 2C 120.7 cm??? LV Systolic Volume MOD 2C 68.5 cm??? LV Ejection Fraction MOD 2C 43.2 % LV Cardiac Index MOD 2C 1437.3 cm???/min???m??? LV Diastolic Length 2C 9.4 cm LV Systolic Length 2C 8.0 cm LA Volume 149.2 cm??? 18 - 58 / 22 - 52 cm??? LA Volume Index 68.6 cm???/m??? 16 - 28 cm???/m??? DOPPLER AV Peak Velocity 209.8 cm/s AV Peak Gradient 17.6 mmHg AV Mean Velocity 151.6 cm/s AV Mean Gradient 10.4 mmHg AV Velocity Time Integral 45.1 cm LVOT Peak Velocity 106.0 cm/s LVOT Peak Gradient 4.5 mmHg LVOT Velocity Time Integral 22.4 cm LVOT Stroke Volume 68.2 cm??? LVOT Stroke Volume Index 32.2 ml/m??? LVOT Cardiac Index 1880.4 cm???/min???m??? AV Area Cont Eq vti 1.5 cm??? AV Area Cont Eq pk 1.5 cm??? MV Peak Velocity 271.3 cm/s MV Peak Gradient 29.5 mmHg MV Mean Velocity 149.0 cm/s MV Mean Gradient 11.4 mmHg MV Velocity Time Integral 83.0 cm TR Peak Velocity 249.8 cm/s TR Peak Gradient 25.0 mmHg Right Atrial Pressure 20.0 mmHg Pulmonary Artery Systolic Pressu 45.0 mmHg Right Ventricular Systolic Press 45.0 mmHg PV Peak Velocity 86.1 cm/s PV Peak Gradient 3.0 mmHg FINDINGS Left Ventricle Left ventricular ejection fraction is estimated at 35-40 %. Mildly increased septal wall thickness. Moderately increased left ventricular systolic volume. Moderately decreased left ventricular ejection fraction. Right Ventricle Right ventricle not well visualized. Mild to moderate pulmonary hypertension. Right Atrium Normal right atrial size. Catheter/pacemaker wire in the right atrial cavity. Left Atrium Severely increased left atrial volume. Moderately increased left atrial area. Mitral Valve Severe thickening/calcification of the anterior mitral valve leaflet. Severe thickening/calcification of the posterior mitral valve leaflet. Severe mitral annular calcification. No evidence for mitral valve prolapse. Severe mitral stenosis. Trace mitral regurgitation. Aortic Valve mechanical aortic valve without stenosis with a peak velocity of 2.1 m/s, peak gradient 18 mmHg, mean gradient 10 mmHg, and estimated aortic valve area of 1.5 cm???. No paravalvular aortic regurgitation. No central aortic regurgitation. Tricuspid Valve Structurally normal tricuspid valve. No tricuspid stenosis. Mild tricuspid regurgitation. Pulmonic Valve Pulmonic valve not well visualized. No pulmonic stenosis. Mild pulmonic regurgitation. Pericardium No pericardial effusion. Aorta Aortic annulus normal. CONCLUSIONS Technically suboptimal study secondary to poor echo windows Moderate to severe LV systolic dysfunction with an ejection fraction of 35 to 40% Severe mitral annular calcification with mitral stenosis Mechanical valve in aortic position with a peak gradient of 18 mm and the mean gradient of 10 mm across the valve Mild to moderate pulmonary hypertension Previewed by: Dr. Marvin Hannah MD (Electronically Signed) Final Date: 28 August 2024 13:53
--- NOTE | 2024-08-28 17:00 | P.HPIM ---
History of Present Illness H&P Date: 08/28/24 Patient is a 84-year-old male with COPD (no home oxygen), CHF, hyperlipidemia, hypertension, valvular heart disease and previous mechanical aortic valve replacement (on Coumadin), permanent pacemaker, prostate disorder presenting with severe shortness of breath. Patient states over the last 2 to 3 days he has increased shortness of breath while ambulating and at rest. He states that he woke up multiple times at night with shortness of breath. Says dyspnea is worse when laying down. States he sleeps in his chair. Patient admits to associated lower extremity edema over the last couple days. He denies any chest pain, heart palpitations, nausea, vomiting, diarrhea. Patient has chronic cough but denies any changes, denies sputum production, hemoptysis, fever, chills. EKG displays electronic ventricular pacemaker CXR independently interpreted displays prominent pulmonary vascular markings small right-sided pleural effusion Troponin 0.017, 0.019, 0.022, proBNP 7800, WBC 11.6, Hgb 9.9, sodium 138, potassium 5.8, BUN 47, creatinine 1.81, glucose 100, INR 3.2 97.8 F, KS 62, RR 16, BP 152/68, O2 sat 94% on 2 L nasal cannula ED documentation reviewed. Review of systems: Pertinent positives and negatives as discussed in HPI, a complete review of systems was performed and all other systems are negative. Physical examination: Vital signs reviewed General: non toxic, no distress, appears at stated age, normal weight Derm: no unusual rashes/lesions, warm Head: atraumatic, normocephalic, symmetric Eyes: EOMI, anicteric sclera, pupils equal round reactive to light ENT: Nose and ears atraumatic Mouth: no lip lesion, mucus membranes moist Cardiovascular: S1S2 reg, no murmur, positive dorsalis pedis pulse bilateral, bilateral edema Lungs: CTA bilateral, no rhonchi, no rales, no accessory muscle use Abdominal: soft, nontender to palpation, no guarding Ext: muscle strength 5 out of 5 in all 4 extremities grossly, no gross muscle atrophy Neuro: CN II-XI grossly intact, no gross focal neuro deficits Psych: Alert, oriented to person, place, and time Assessment/Plan: Patient is a 84-year-old male with COPD, CHF, hyperlipidemia, hypertension, valvular heart disease and previous mechanical aortic valve replacement, pacemaker, prostate disorder presenting with severe shortness of breath. Active #. Suspected CHF exacerbation CXR independently interpreted displays prominent pulmonary vascular markings small right-sided pleural effusion proBNP 7800 Volume overloaded, continue Lasix 40 mg IV daily Daily weights Strict ONDINA's Cardiac monitoring Echocardiogram ordered. Cardiology consulted. Note read echo ordered, blood cultures ordered due to prosthetic valve, treat with IV diuretic #. Acute COPD exacerbation #. Acute hypoxemic respiratory failure secondary to suspected CHF/COPD exacerbation Continue supplemental oxygen to keep saturation b/w 88-92% DuoNebs [id number], Symbicort inhaler, IV Solu-Medrol 40 mg IV Q8hr #. Hyperkalemia Treated with Lokelma and insulin Follow-up BMP Chronic #. Hypertension #. Hyperlipidemia #. Permanent pacemaker #. Anemia chronic disease #. Valvular heart disease, history of mitral stenosis and previous mechanical aortic valve replacement INR 3.2, Coumadin resumed, repeat INR, blood cultures ordered Resume all home medications for chronic illnesses. F: N/A E: Replete electrolytes as needed N: Heart healthy diet A: Ambulatory DVT prophylaxis: Coumadin 1.5 mg HS GI prophylaxis: Protonix The patient is admitted with an anticipated greater than 2 midnight stay for evaluation of severe shortness of breath. CODE STATUS: Full code Discussed with: Patient Anticipated discharge place: Pending clinical course. Past Medical History Past Medical History: Cancer, Heart Failure, COPD, Hyperlipidemia, Hypertension, Osteoarthritis (OA), Pneumonia, Prostate Disorder Additional Past Medical History / Comment(s): ARRYTHYTHMIA,AORTIC VALVE REPLACEMENT,PROSTATE CANCER, History of Any Multi-Drug Resistant Organisms: None Reported Past Surgical History: Cardiac Valve Replacement, Pacemaker, Tonsillectomy Additional Past Surgical History / Comment(s): vasectomy. carotid artery. Permanent Pacemaker by Dr Clark Past Anesthesia/Blood Transfusion Reactions: No Reported Reaction Type of Cardiac Device: Permanent Pacemaker Device Placement Date:: 10/30/2020 Past Psychological History: Depression Smoking Status: Former smoker Past Alcohol Use History: None Reported Additional Past Alcohol Use History / Comment(s): STARTED SMOKING AT AGE 13 QUIT 1998 SMOKED1-2PPD Past Drug Use History: None Reported - Past Family History Mother History Unknown: Yes Family Medical History: Cancer Medications and Allergies Home Medications Medication Instructions Recorded Confirmed Type amLODIPine [Norvasc] 5 mg PO BID 05/14/19 08/27/24 History Atorvastatin [Lipitor] 40 mg PO HS 09/19/23 08/27/24 History Fluticasone Nasal [place] [Flonase 2 spray EA NOSTRIL DAILY 09/19/23 08/27/24 History Nasal [place]] Loratadine [Claritin] 10 mg PO DAILY 09/19/23 08/27/24 History Amiodarone [Cordarone] 200 mg PO DAILY tab 07/03/24 08/27/24 Rx Budesonide-Formot 160-4.5 Mcg 2 puff INHALATION RT-BID each 07/03/24 08/27/24 Rx [Symbicort 160-4.5 Mcg Inhaler] Cholecalciferol [Vitamin D3 (25 50 mcg PO DAILY tab 07/03/24 08/27/24 Rx Mcg = 1000 Iu)] Menthol-Zinc Oxide Oint 1 applic TOPICAL BID each 07/03/24 08/27/24 Rx [Calmoseptine Ointment] Metoprolol Tartrate [Lopressor] 50 mg PO BID tab 07/03/24 08/27/24 Rx Nystatin 100,000 Unit/gm Powd 1 applic TOPICAL BID each 07/03/24 08/27/24 Rx [Mycostatin Powder] Ferrous Sulfate [Feosol] 325 mg PO DAILY 08/27/24 08/27/24 History HYDROcodone/APAP 5-325MG [[place] 1 tab PO BID PRN 08/27/24 08/27/24 History 5-325] Warfarin [Coumadin] 2.5 mg PO HS 08/27/24 08/27/24 History Allergies Allergy/AdvReac Type Severity Reaction Status Date / Time dopamine Allergy "WAS TOLD Verified 08/27/24 19:37 NOT TO HAVE RX AGAIN,VERY ILL STATES ALMOST " methylprednisolone AdvReac Hallucinati Verified 08/27/24 19:37 [From [facility]] ons Physical Exam Vitals: Vital Signs Temp Pulse Pulse Resp BP BP BP 08/28/24 07:00 97.8 F 62 16 152/68 08/28/24 02:39 97.4 F L 60 21 126/66 08/28/24 02:00 65 08/27/24 22:30 65 08/27/24 21:36 97.5 F L 65 22 145/73 08/27/24 21:18 98.1 F 60 24 147/55 08/27/24 20:00 60 24 128/47 08/27/24 19:00 60 20 132/57 08/27/24 18:16 62 08/27/24 18:04 59 L 08/27/24 16:54 24 08/27/24 16:51 98 F 68 20 137/59 Pulse Ox 08/28/24 07:00 94 L 08/28/24 02:39 97 08/28/24 02:00 08/27/24 22:30 08/27/24 21:36 94 L 08/27/24 21:18 94 L 08/27/24 20:00 92 L 08/27/24 19:00 95 08/27/24 18:16 08/27/24 18:04 08/27/24 16:54 08/27/24 16:51 97 Intake and Output 08/27/24 08/28/24 08/28/24 22:59 06:59 14:59 Output Total 1500 Balance -1500 Output: Urine 1500 Other: Voiding Method External Catheter Weight 93.894 kg 94 kg Results CBC & Chem 7: 08/28/24 04:24 08/28/24 04:24 Labs: Abnormal Lab Results - Last 24 Hours (Table) 08/27/24 08/27/24 08/27/24 Range/Units 17:08 17:08 17:08 WBC 11.6 H (3.8-10.6) k/uL RBC 3.41 L (4.30-5.90) m/uL Hgb 9.9 L (13.0-17.5) gm/dL Hct 31.9 L (39.0-53.0) % Neutrophils # 9.5 H (1.3-7.7) k/uL PT 31.5 H (10.0-12.5) sec INR 3.2 H (<1.2) APTT 47.1 H (22.0-30.0) sec Potassium 5.8 H (3.5-5.1) mmol/L Chloride 111 H (98-107) mmol/L Carbon Dioxide 21 L (22-30) mmol/L BUN 47 H (9-20) mg/dL Creatinine 1.81 H (0.66-1.25) mg/dL Glucose 100 H (74-99) mg/dL Thrombosis Risk Factor Assmnt - Choose All That Apply Any of the Below Risk Factors Present?: Yes Each Factor Represents 1 point: Abnormal pulmonary function (COPD), Obesity (BMI >25) Other Risk Factors: Yes Each Risk Factor Represents 3 Points: Age 75 years or older Other congenital or acquired thrombophilia - If yes, enter type in comment: No Thrombosis Risk Factor Assessment Total Risk Factor Score: 5 Thrombosis Risk Factor Assessment Level: High Risk
[2024-08-28] MEDS: NYSTATIN 100,000 UNIT/GM POWD 15 GM TOPICAL SCH (20:15)
[2024-08-28] MEDS: ATORVASTATIN 40 MG TAB PO SCH (20:15)
[2024-08-28] MEDS: WARFARIN 2.5 MG TAB PO SCH (20:16)
[2024-08-28] MEDS ORDERED: WARFARIN 1.5 MG TAB PO SCH (21:00)
[2024-08-28] MEDS: IPRATROPIUM-ALBUTEROL 3 ML NEB INHALATION PRN (23:37)
[2024-08-29 06:02] LABS: INR 3.4 (<1.2)
[2024-08-29 06:03] LABS: Prothrombin Time 33.4 sec (10.0-12.5)
[2024-08-29 07:19] LABS: Basophils % (A) 0 %; Eosinophils # (A) 0.1 k/uL (0-0.7); Eosinophils % (A) 0 %; HCT 32.7 % (39.0-53.0); Hypochromasia Moderate; Lymphocytes # (A) 0.5 k/uL (1.0-4.8); Lymphocytes % (A) 4 %; MCH 29.5 pg (25.0-35.0); MCHC 30.7 g/dL (31.0-37.0); MCV 96.2 fL (80.0-100.0); Mean Platelet Volume 8.8; Monocytes # (A) 0.4 k/uL (0-1.0); Monocytes % (A) 3 %; Neutrophils # (A) 12.3 k/uL (1.3-7.7); Neutrophils % (A) 93 %; Platelet Count 219 k/uL (150-450); RDW 15.1 % (11.5-15.5); WBC 13.3 k/uL (3.8-10.6)
[2024-08-29 07:46] LABS: ALT 13 U/L (4-49); AST 22 U/L (17-59); African American GFR (CKD) 34 (>60 ml/min/1.73 sqM); Albumin 3.8 g/dL (3.5-5.0); Alkaline Phosphatase 79 U/L (38-126); Anion Gap 12 mmol/L; Blood Urea Nitrogen 56 mg/dL (9-20); Calcium 8.5 mg/dL (8.4-10.2); Carbon Dioxide 23 mmol/L (22-30); Chloride 105 mmol/L (98-107); Globulin 3.8 g/dL; Glucose 142 mg/dL (74-99); Magnesium 2.2 mg/dL (1.6-2.3); Non-African American GFR(CKD) 29 (>60 ml/min/1.73 sqM); Potassium 5.5 mmol/L (3.5-5.1); Sodium 140 mmol/L (137-145); Total Bilirubin 0.3 mg/dL (0.2-1.3); Total Protein 7.6 g/dL (6.3-8.2)
[2024-08-29] MEDS: FUROSEMIDE 20 MG TAB PO SCH (08:41)
--- NOTE | 2024-08-29 11:03 | P.PN ---
Subjective Progress Note Date: 08/29/24 This is an 84-year-old male with past medical history of COPD, hypertension, dyslipidemia, aortic stenosis status post mechanical aortic valve replacement, status post permanent pacemaker, on long-term Coumadin. Patient presented due to swelling and shortness of breath and cough. He is seen and examined this morning and edema is much improved. Shortness of breath is much improved. Patient is concerned that he is on a new medication, amiodarone, that is interfering with his INR. He does not have history of atrial fibrillation. He states that it was recently started at [facility] by Dr. Conner. We will attempt to get records from [facility]. Blood pressure 132/71, heart rate 60, pulse ox 94% on room air. Repeat blood work reveals WBC 13.3, hemoglobin 10, INR 3.4. BUN 56 and creatinine 2.02. Echocardiogram reveals EF of 35 to 40%, technically suboptimal study secondary to poor echo windows. Severe mitral annular calcification with mitral stenosis, mechanical valve in the aortic position with peak gradient of 18 and mean gradient of 10 across the valve. Mild to moderate pulmonary hypertension. Physical examination: Gen: This is an 84-year-old male in no acute distress VS: reviewed HEENT: Head is atraumatic, normocephalic. Pupils equal, round. Sclerae is anicteric. NECK: Supple. No JVD. LUNGS: Clear to auscultation. No wheezes or rhonchi. No intercostal retractions. HEART: Regular rate and rhythm. ABDOMEN: Soft No tenderness. EXTREMITIES: Minimal pedal edema. No calf tenderness. NEUROLOGICAL: Patient is awake, alert and oriented x3. Assessment: Acute on chronic systolic heart failure History of mechanical aortic valve Chronic obstructive pulmonary disease History of permanent pacemaker. Plan: Transition IV Lasix to oral 20 mg daily We will attempt to get records from [facility] to find out why patient is on amiodarone as this will interfere with Coumadin monitoring. The use of amiodarone can be addressed at his office visit next week. Patient is cleared for discharge. Otherwise, patient is cleared for discharge and may follow-up with Dr. Prasad next week Nurse practitioner note has been reviewed, I agree with documented findings and plan of care. Patient was seen and examined. Objective - Vital Signs Vital signs: Vital Signs Temp 97.8 F 08/29/24 07:00 Pulse 60 08/29/24 07:00 Resp 16 08/29/24 07:00 BP 132/71 08/29/24 07:00 Pulse Ox 94 L 08/29/24 07:00 FiO2 Intake & Output 08/28/24 08/29/24 08/29/24 18:59 06:59 18:59 Intake Total 118 Output Total 1000 450 Balance -882 -450 Intake: Oral 118 Output: Urine 1000 450 Other: Voiding Method External Catheter External Catheter - Labs CBC & Chem 7: 08/29/24 07:03 08/29/24 07:03 Labs: Abnormal Lab Results - Last 24 Hours (Table) 08/28/24 08/28/24 08/28/24 Range/Units 04:24 04:24 08:27 WBC 11.33 H (4.50-10.00) X 10*3/uL RBC 3.31 L (4.40-5.60) X 10*6/uL Hgb 9.5 L (13.0-17.0) g/dL Hct 31.9 L (39.6-50.0) % MCHC 29.8 L (32.0-37.0) g/dL RDW 15.2 H (11.5-14.5) % Neutrophils # 9.06 H (1.80-7.70) X 10*3/uL Lymphocytes # 0.85 L (0.90-5.00) X 10*3/uL Monocytes # 1.16 H (0.20-1.00) X 10*3/uL PT 29.8 H (10.0-12.5) sec INR 3.0 H (<1.2) Potassium (3.5-5.1) mmol/L BUN 45.7 H (9.0-27.0) mg/dL Creatinine 1.9 H (0.6-1.5) mg/dL Est GFR (CKD-EPI) 34 L (>=60) BUN/Creatinine Ratio 24.05 H (12.00-20.00) Ratio Glucose (74-99) mg/dL ALT 8 L (10-49) U/L Albumin 3.4 L (3.8-4.9) g/dL Globulin 3.7 H (1.6-3.3) g/dL Albumin/Globulin Ratio 0.92 L (1.60-3.17) Ratio 08/29/24 08/29/24 08/29/24 Range/Units 05:06 07:03 07:03 WBC 13.3 H (4.50-10.00) X 10*3/uL RBC 3.40 L (4.40-5.60) X 10*6/uL Hgb 10.0 L (13.0-17.0) g/dL Hct 32.7 L (39.6-50.0) % MCHC 30.7 L (32.0-37.0) g/dL RDW (11.5-14.5) % Neutrophils # 12.3 H (1.80-7.70) X 10*3/uL Lymphocytes # 0.5 L (0.90-5.00) X 10*3/uL Monocytes # (0.20-1.00) X 10*3/uL PT 33.4 H (10.0-12.5) sec INR 3.4 H (<1.2) Potassium 5.5 H (3.5-5.1) mmol/L BUN 56 H (9.0-27.0) mg/dL Creatinine 2.02 H (0.6-1.5) mg/dL Est GFR (CKD-EPI) (>=60) BUN/Creatinine Ratio (12.00-20.00) Ratio Glucose 142 H (74-99) mg/dL ALT (10-49) U/L Albumin (3.8-4.9) g/dL Globulin (1.6-3.3) g/dL Albumin/Globulin Ratio (1.60-3.17) Ratio
--- NOTE | 2024-08-29 13:27 | P.PN ---
Subjective Progress Note Date: 08/29/24 Patient is an 84-year-old male with past medical history significant for COPD, hyperlipidemia, hypertension, valvular heart disease and previous mechanical aortic valve replacement, pacemaker, and prostate disorder. Primary care provider is Dr. Coleman Nugent. Patient states that over the last 2 to 3 days he has had increased shortness of breath while ambulating and at rest. This is associated with increased lower extremity swelling and 2 pound weight gain over the last couple day. He sleeps in a chair. Denies any chest pain, heart palpitations, lightheadedness or syncopal events. Has a permanent pacemaker. States that his diuretics were stopped on his previous hospital admission May, because of his kidney function. Denies any chest pain, heart palpitations, lightheadedness or syncopal events. Patient also has history of COPD and remote history of tobacco use. Normally uses Symbicort inhaler and as needed albuterol HFA inhaler at home. Denies any home O2 use. Patient denies a [place] recent sick contacts. Denies change in his chronic cough, sputum production, hemoptysis, fevers, chills. Chest x-ray done on admission showing cardiomegaly, pulmonary vascular congestion, and right costophrenic angle blunting consistent with small pleural effusion. Implanted pacemaker in left chest and sternotomy wires. CBC: WBC count 11.6, hemoglobin 9.9, hematocrit 31.9, platelets 211. I NR 3.2. Patient does have history of mechanical aortic valve replacement. CMP: Sodium 138, potassium 5.8, chloride 111, serum bicarb 21, BUN 47, creatinine 1.81, glucose 100. LFTs unremarkable. Troponin 0.017, 0.019, and 0.022 respectively. NT proBNP 7800. Most recent available transthoracic ec hocardiogram from August, estimating preserved left ventricular ejection fraction of 55 to 60%, moderate concentric LVH, moderate mitral stenosis, and normally functioning mechanical aortic valve prosthesis. Patient did receive a dose of Lasix 60 mg in the ER department. Hyperkalemia was also treated with a K cocktail including 10 units of regular insulin, 1 amp D50 W, 1 amp sodium bicarbonate, and 1 dose of 10 g of Lokelma. EKG showing a ventricularly paced rhythm. On my evaluation, patient is currently resting comfortably on 2 L/min nasal cannula. SpO2 94%. Afebrile. Remaining vital signs are stable. The patient is seen today August 29, 2024 in follow-up on the regular medical floor. He is currently sitting up in bed. Awake and alert in no acute distress. Maintaining O2 saturations in the 90s on 2 L/min per nasal cannula. He is feeling better today compared to yesterday. White count 13.3. Hemoglobin 10.0. Platelets 219. Sodium 140. Potassium 5.5. Bicarb 23. BUN 56. Creatinine 2.02. Glucose 142. INR 3.4. Procalcitonin was negative at 0.15. He remains on DuoNeb and elations, Symbicort, Solu-Medrol. Remains on oral diuretics. Objective - Vital Signs Vital signs: Vital Signs Temp 97.8 F 08/29/24 07:00 Pulse 60 08/29/24 09:15 Resp 16 08/29/24 07:00 BP 132/71 08/29/24 07:00 Pulse Ox 94 L 08/29/24 07:00 FiO2 Intake & Output 08/28/24 08/29/24 08/29/24 18:59 06:59 18:59 Intake Total 118 118 Output Total 1000 450 Balance -882 -450 118 Intake: Oral 118 118 Output: Urine 1000 450 Other: Voiding Method External Catheter External Catheter - Exam GENERAL EXAM: Alert, pleasant 84-year-old male, sitting up in bed, on 2 L nasal cannula, comfortable in no apparent distress. HEAD: Normocephalic and atraumatic EYES: Normal reaction of pupils, equal size. NOSE: Clear with pink turbinates. THROAT: No erythema or exudates. NECK: No masses, no JVD. CHEST: No chest wall deformity. LUNGS: Equal air entry with faint expiratory wheezes heard bilaterally throughout. No conversational dyspnea or accessory muscle use while at rest CVS: S1 and S2 normal with no audible murmur, regular rhythm. No extra heart sounds ABDOMEN: No hepatosplenomegaly, active bowel sounds, no guarding or rigidity. SPINE: No scoliosis or deformity SKIN: No rashes CENTRAL NERVOUS SYSTEM: No focal deficits, tone is normal in all 4 extremities. EXTREMITIES: There is 1-2+ bilateral pitting lower extremity edema. No clubbing or cyanosis. Peripheral pulses are intact. - Labs CBC & Chem 7: 08/29/24 07:03 08/29/24 07:03 Labs: Abnormal Lab Results - Last 24 Hours (Table) 08/29/24 08/29/24 08/29/24 Range/Units 05:06 07:03 07:03 WBC 13.3 H (3.8-10.6) k/uL RBC 3.40 L (4.30-5.90) m/uL Hgb 10.0 L (13.0-17.5) gm/dL Hct 32.7 L (39.0-53.0) % MCHC 30.7 L (31.0-37.0) g/dL Neutrophils # 12.3 H (1.3-7.7) k/uL Lymphocytes # 0.5 L (1.0-4.8) k/uL PT 33.4 H (10.0-12.5) sec INR 3.4 H (<1.2) Potassium 5.5 H (3.5-5.1) mmol/L BUN 56 H (9-20) mg/dL Creatinine 2.02 H (0.66-1.25) mg/dL Glucose 142 H (74-99) mg/dL Assessment and Plan Assessment: Suspect acute exacerbation of diastolic congestive heart failure Acute COPD exacerbation Acute hypoxemic respiratory failure, secondary to a combination of above, chest x-ray showing cardiomegaly, pulmonary vascular congestion, and right costophrenic angle blunting consistent with small pleural effusion. NT proBNP elevated at 7800 Acute on chronic kidney disease Hyperkalemia, treated with K cocktail in the ED Anemia of chronic disease Valvular heart disease, history of moderate mitral stenosis and previous mechanical aortic valve replacement. Chronically anticoagulated on warfarin Permanent pacemaker Hypertension History of hyperlipidemia Former tobacco dependence Plan: The patient was seen and evaluated Labs and medications reviewed Currently stable on 2 L nasal cannula Continued on oral diuretics Continued on bronchodilators and steroids Procalcitonin negative Plan is for home with home care at discharge I have personally seen and examined the patient, performed the documentation and the assessment and plan as written. Number of minutes spent on the visit: 10 Dictation was produced using [employer] software. Please excuse any grammatical, word or spelling errors.
--- NOTE | 2024-08-29 14:57 | P.PN ---
Subjective Progress Note Date: 08/29/24 Hospital course: Patient is a 84-year-old male with COPD (no home oxygen), CHF, hyperlipidemia, hypertension, valvular heart disease and previous mechanical aortic valve replacement (on Coumadin), permanent pacemaker, prostate disorder presenting with severe shortness of breath. Patient states over the last 2 to 3 days he has increased shortness of breath while ambulating and at rest. He states that he woke up multiple times at night with shortness of breath. Says dyspnea is worse when laying down. States he sleeps in his chair. Patient admits to associated lower extremity edema over the last couple days. He denies any chest pain, heart palpitations, nausea, vomiting, diarrhea. Patient has chronic cough but denies any changes, denies sputum production, hemoptysis, fever, chills. EKG displays electronic ventricular pacemaker CXR independently interpreted displays prominent pulmonary vascular markings small right-sided pleural effusion Troponin 0.017, 0.019, 0.022, proBNP 7800, WBC 11.6, Hgb 9.9, sodium 138, potassium 5.8, BUN 47, creatinine 1.81, glucose 100, INR 3.2 97.8 F, NJ 62, RR 16, BP 152/68, O2 sat 94% on 2 L nasal cannula 08/29/2024: Patient seen and evaluated bedside. No acute complaints. No acute vents overnight. States he is feeling much better. Reports that his swelling has gone down and in his legs. Was seen and cleared by cardiology. Pulmonology told him he is on the appropriate regiment. Patient states he feels weak still. Likely discharge tomorrow. Pertinent positives and negatives as discussed above, a complete review of systems was performed and all other systems are negative. Vitals: Signs Reviewed Physical Exam: General: nontoxic, no distress, appears at stated age Derm: warm, dry, intact Head: atraumatic, normocephalic, symmetric Eyes: EOMI, anicteric sclera Mouth: no lip lesion, mucus membranes moist Cardiovascular: S1 S2 reg, no murmur, rubs, or gallops Lungs: bilateral crackles, no rhonchi, no rales, no accessory muscle use Abdominal: soft, non-tender to palpataion, no appreciable organomegaly Extremities: no gross muscle atrophy, no edema, no contractures Neuro: Alert, Oriented, CNII-XII grossly intact, gait normal Psych: well appearing, appropriate affect Data Received Today: Pertinent Labs: WBC 13.3, Hgb 10.0, platelet 219, potassium 5.5, BUN 56, creatinine 2.02, glucose 142 Imaging: Echocardiogram displayed moderate to severe LV dysfunction with ejection fraction of 35 to 40% Assessment/Plan: Patient is a 84-year-old male with COPD, CHF, hyperlipidemia, hypertension, valvular heart disease and previous mechanical aortic valve replacement, pacemaker, prostate disorder presenting with severe shortness of breath. Active #. Acute CHF exacerbation CXR independently interpreted displays prominent pulmonary vascular markings small right-sided pleural effusion proBNP 7800 Volume overloaded, continue Lasix 40 mg IV daily Daily weights Strict ONDINA's Cardiac monitoring Echocardiogram displayed moderate to severe LV dysfunction with ejection fraction of 35 to 40% Cardiology consulted. Note read, IV Lasix converted to oral Lasix, wants to follow-up in a week with Dr. Prasad #. Acute COPD exacerbation #. Acute hypoxemic respiratory failure secondary to suspected CHF/COPD exacerbation Continue supplemental oxygen to keep saturation b/w 88-92% DuoNebs [id number], Symbicort inhaler, IV Solu-Medrol 40 mg IV Q8hr Pulmonology following, note read. On appropriate medications #. Hyperkalemia Treated with Lokelma and insulin Follow-up BMP Chronic #. Hypertension #. Hyperlipidemia #. Permanent pacemaker #. Anemia chronic disease #. Valvular heart disease, history of mitral stenosis and previous mechanical aortic valve replacement INR 3.2, Coumadin resumed, repeat INR, blood cultures ordered Resume all home medications for chronic illnesses. F: N/A E: Replete electrolytes as needed N: Heart healthy diet A: Ambulatory DVT prophylaxis: Coumadin 1.5 mg HS GI prophylaxis: Protonix The patient is admitted with an anticipated greater than 2 midnight stay for evaluation of severe shortness of breath. CODE STATUS: Full code Discussed with: Patient Anticipated discharge place: Likely tomorrow Attestation I have seen and examined this patient with my resident , discussed the same with the resident/DEMOND, and agree with the dictator's assessment and plan as written Dr. Satnam hagen Objective - Vital Signs Vital signs: Vital Signs Temp 97.8 F 08/29/24 07:00 Pulse 60 08/29/24 09:15 Resp 16 08/29/24 07:00 BP 132/71 08/29/24 07:00 Pulse Ox 94 L 08/29/24 07:00 FiO2 Intake & Output 08/28/24 08/29/24 08/29/24 18:59 06:59 18:59 Intake Total 118 118 Output Total 1000 450 Balance -882 -450 118 Intake: Oral 118 118 Output: Urine 1000 450 Other: Voiding Method External Catheter External Catheter - Labs CBC & Chem 7: 08/30/24 06:13 08/29/24 07:03 Labs: Abnormal Lab Results - Last 24 Hours (Table) 08/29/24 08/29/24 08/29/24 Range/Units 05:06 07:03 07:03 WBC 13.3 H (3.8-10.6) k/uL RBC 3.40 L (4.30-5.90) m/uL Hgb 10.0 L (13.0-17.5) gm/dL Hct 32.7 L (39.0-53.0) % MCHC 30.7 L (31.0-37.0) g/dL Neutrophils # 12.3 H (1.3-7.7) k/uL Lymphocytes # 0.5 L (1.0-4.8) k/uL PT 33.4 H (10.0-12.5) sec INR 3.4 H (<1.2) Potassium 5.5 H (3.5-5.1) mmol/L BUN 56 H (9-20) mg/dL Creatinine 2.02 H (0.66-1.25) mg/dL Glucose 142 H (74-99) mg/dL
[2024-08-30 06:45] LABS: Prothrombin Time 39.5 sec (10.0-12.5)
[2024-08-30 08:18] LABS: Basophils # (A) 0.01 X 10*3/uL (0.00-0.10); Basophils % (A) 0.1 %; Eosinophils # (A) 0 X 10*3/uL (0.04-0.35); Eosinophils % (A) 0 %; HCT 32.2 % (39.6-50.0); HGB 9.8 g/dL (13.0-17.0); Lymphocytes # (A) 0.37 X 10*3/uL (0.90-5.00); Lymphocytes % (A) 2.5 %; MCH 29.3 pg (27.0-32.0); MCHC 30.4 g/dL (32.0-37.0); MCV 96.4 FL (80.0-97.0); Monocytes # (A) 0.52 X 10*3/uL (0.20-1.00); Monocytes % (A) 3.5 %; NRBC Per 100 WBC 0 X 10*3/uL (0.00-0.01); Neutrophils # (A) 13.89 X 10*3/uL (1.80-7.70); Neutrophils % (A) 93.2 %; Platelet Count 196 X 10*3/uL (140-440); RBC 3.34 X 10*6/uL (4.40-5.60); WBC 14.89 X 10*3/uL (4.50-10.00)
[2024-08-30] MEDS ORDERED: FUROSEMIDE 40 MG TAB PO SCH (09:00)
--- NOTE | 2024-08-30 10:04 | P.PN ---
Subjective Progress Note Date: 08/30/24 This is an 84-year-old male with past medical history of COPD, hypertension, dyslipidemia, aortic stenosis status post mechanical aortic valve replacement, status post permanent pacemaker, on long-term Coumadin. Patient presented due to swelling and shortness of breath and cough. He is seen and examined this morning and edema is much improved. Shortness of breath is much improved. Patient is concerned that he is on a new medication, amiodarone, that is interfering with his INR. He does not have history of atrial fibrillation. He states that it was recently started at [facility] by Dr. Conner. We will attempt to get records from [facility]. Blood pressure 132/71, heart rate 60, pulse ox 94% on room air. Repeat blood work reveals WBC 13.3, hemoglobin 10, INR 3.4. BUN 56 and creatinine 2.02. Echocardiogram reveals EF of 35 to 40%, technically suboptimal study secondary to poor echo windows. Severe mitral annular calcification with mitral stenosis, mechanical valve in the aortic position with peak gradient of 18 and mean gradient of 10 across the valve. Mild to moderate pulmonary hypertension. 08/30 Patient was cleared for discharge yesterday but he states that he did not go home because his legs were weak and he was being evaluated for rehab but his plan is to go home later today. Blood pressure 135/73, heart rate 60, pulse ox 96% on 2 L nasal cannula. Repeat blood work reveals WBC 14.8, hemoglobin 9.8 Physical examination: Gen: This is an 84-year-old male in no acute distress VS: reviewed HEENT: Head is atraumatic, normocephalic. Pupils equal, round. Sclerae is anicteric. NECK: Supple. No JVD. LUNGS: Clear to auscultation. No wheezes or rhonchi. No intercostal retractions. HEART: Regular rate and rhythm. ABDOMEN: Soft No tenderness. EXTREMITIES: Minimal pedal edema. No calf tenderness. NEUROLOGICAL: Patient is awake, alert and oriented x3. Assessment: Acute on chronic systolic heart failure History of mechanical aortic valve Chronic obstructive pulmonary disease History of permanent pacemaker. History of atrial flutter, typical Plan: Continue IV Lasix to oral 20 mg daily Patient is on amiodarone and concerned that this will interfere with Coumadin monitoring. The use of amiodarone can be addressed at his office visit next week with Dr. Prasad. Nurse practitioner note has been reviewed, I agree with documented findings and plan of care. Patient was seen and examined. Objective - Vital Signs Vital signs: Vital Signs Temp 97.7 F 08/30/24 06:53 Pulse 60 08/30/24 06:53 Resp 18 08/30/24 06:53 BP 135/73 08/30/24 06:53 Pulse Ox 96 08/30/24 06:53 FiO2 Intake & Output 08/29/24 08/30/24 08/30/24 18:59 06:59 18:59 Intake Total 354 360 118 Output Total 400 500 Balance -46 -140 118 Weight 102.3 kg Intake: Oral 354 360 118 Output: Urine 400 500 Other: Voiding Method External Catheter # Voids 1 # Bowel Movements 2 2 - Labs CBC & Chem 7: 08/30/24 06:13 08/29/24 07:03 Labs: Abnormal Lab Results - Last 24 Hours (Table) 08/30/24 08/30/24 Range/Units 06:13 06:13 WBC 14.89 H (4.50-10.00) X 10*3/uL RBC 3.34 L (4.40-5.60) X 10*6/uL Hgb 9.8 L (13.0-17.0) g/dL Hct 32.2 L (39.6-50.0) % MCHC 30.4 L (32.0-37.0) g/dL RDW 15.0 H (11.5-14.5) % Immature Gran # 0.10 H (0.00-0.04) X 10*3/uL Neutrophils # 13.89 H (1.80-7.70) X 10*3/uL Lymphocytes # 0.37 L (0.90-5.00) X 10*3/uL Eosinophils # 0 L (0.04-0.35) X 10*3/uL PT 39.5 H (10.0-12.5) sec INR 4.0 H (<1.2) Microbiology - Last 24 Hours (Table) 08/28/24 08:27 Blood Culture - Preliminary Blood
[2024-08-30 10:37] LABS: BUN/Creat Ratio 31.33 Ratio (12.00-20.00); Blood Urea Nitrogen 65.8 mg/dL (9.0-27.0); Calcium 8.3 mg/dL (8.7-10.3); Chloride 103 mmol/L (96-109); Glucose 126 mg/dL (70-110); Potassium 5.9 mmol/L (3.5-5.5); Sodium 138 mmol/L (135-145)
[2024-08-30 10:38] LABS: Magnesium 2.3 mg/dL (1.5-2.4)
--- NOTE | 2024-08-30 12:35 | P.PN ---
Subjective Progress Note Date: 08/30/24 Patient is an 84-year-old male with past medical history significant for COPD, hyperlipidemia, hypertension, valvular heart disease and previous mechanical aortic valve replacement, pacemaker, and prostate disorder. Primary care provider is Dr. Coleman Nugent. Patient states that over the last 2 to 3 days he has had increased shortness of breath while ambulating and at rest. This is associated with increased lower extremity swelling and 2 pound weight gain over the last couple day. He sleeps in a chair. Denies any chest pain, heart palpitations, lightheadedness or syncopal events. Has a permanent pacemaker. States that his diuretics were stopped on his previous hospital admission May, because of his kidney function. Denies any chest pain, heart palpitations, lightheadedness or syncopal events. Patient also has history of COPD and remote history of tobacco use. Normally uses Symbicort inhaler and as needed albuterol HFA inhaler at home. Denies any home O2 use. Patient denies a [place] recent sick contacts. Denies change in his chronic cough, sputum production, hemoptysis, fevers, chills. Chest x-ray done on admission showing cardiomegaly, pulmonary vascular congestion, and right costophrenic angle blunting consistent with small pleural effusion. Implanted pacemaker in left chest and sternotomy wires. CBC: WBC count 11.6, hemoglobin 9.9, hematocrit 31.9, platelets 211. I NR 3.2. Patient does have history of mechanical aortic valve replacement. CMP: Sodium 138, potassium 5.8, chloride 111, serum bicarb 21, BUN 47, creatinine 1.81, glucose 100. LFTs unremarkable. Troponin 0.017, 0.019, and 0.022 respectively. NT proBNP 7800. Most recent available transthoracic ec hocardiogram from August, estimating preserved left ventricular ejection fraction of 55 to 60%, moderate concentric LVH, moderate mitral stenosis, and normally functioning mechanical aortic valve prosthesis. Patient did receive a dose of Lasix 60 mg in the ER department. Hyperkalemia was also treated with a K cocktail including 10 units of regular insulin, 1 amp D50 W, 1 amp sodium bicarbonate, and 1 dose of 10 g of Lokelma. EKG showing a ventricularly paced rhythm. On my evaluation, patient is currently resting comfortably on 2 L/min nasal cannula. SpO2 94%. Afebrile. Remaining vital signs are stable. The patient is seen today August 29, 2024 in follow-up on the regular medical floor. He is currently sitting up in bed. Awake and alert in no acute distress. Maintaining O2 saturations in the 90s on 2 L/min per nasal cannula. He is feeling better today compared to yesterday. White count 13.3. Hemoglobin 10.0. Platelets 219. Sodium 140. Potassium 5.5. Bicarb 23. BUN 56. Creatinine 2.02. Glucose 142. INR 3.4. Procalcitonin was negative at 0.15. He remains on DuoNeb and elations, Symbicort, Solu-Medrol. Remains on oral diuretics. The patient is seen today August 30, 2024 in follow-up on the regular medical floor. He is awake and alert in no acute distress. He is feeling nearly back to his baseline. Resting quite comfortably in bed. Maintaining O2 saturations in the 90s on 2 L/min per nasal cannula. He is continued on DuoNeb inhalations, Solu-Medrol, Symbicort. Anticoagulated with warfarin. Remains on oral diuretics. White count 14.8. Hemoglobin 9.8. Platelets 196. INR 4.0. Sodium 138. Potassium 5.9. Bicarb 23. BUN 66. Creatinine 2.1. Glucose 126. Objective - Vital Signs Vital signs: Vital Signs Temp 97.7 F 08/30/24 06:53 Pulse 60 08/30/24 06:53 Resp 18 08/30/24 06:53 BP 135/73 08/30/24 06:53 Pulse Ox 96 08/30/24 06:53 FiO2 Intake & Output 08/29/24 08/30/24 08/30/24 18:59 06:59 18:59 Intake Total 354 360 118 Output Total 400 500 Balance -46 -140 118 Weight 102.3 kg Intake: Oral 354 360 118 Output: Urine 400 500 Other: Voiding Method External Catheter External Catheter # Voids 1 # Bowel Movements 2 2 - Exam GENERAL EXAM: Alert, pleasant 84-year-old male, on 2 L nasal cannula, comfortable in no apparent distress. HEAD: Normocephalic and atraumatic EYES: Normal reaction of pupils, equal size. NOSE: Clear with pink turbinates. THROAT: No erythema or exudates. NECK: No masses, no JVD. CHEST: No chest wall deformity. LUNGS: Equal air entry with faint expiratory wheezes heard bilaterally throughout. No conversational dyspnea. CVS: S1 and S2 normal with no audible murmur, regular rhythm. No extra heart sounds ABDOMEN: No hepatosplenomegaly, active bowel sounds, no guarding or rigidity. SPINE: No scoliosis or deformity SKIN: No rashes CENTRAL NERVOUS SYSTEM: No focal deficits, tone is normal in all 4 extremities. EXTREMITIES: There is 1-2+ bilateral pitting lower extremity edema. No clubbing or cyanosis. Peripheral pulses are intact. - Labs CBC & Chem 7: 08/30/24 06:13 08/30/24 06:13 Labs: Abnormal Lab Results - Last 24 Hours (Table) 08/30/24 08/30/24 08/30/24 Range/Units 06:13 06:13 06:13 WBC 14.89 H (4.50-10.00) X 10*3/uL RBC 3.34 L (4.40-5.60) X 10*6/uL Hgb 9.8 L (13.0-17.0) g/dL Hct 32.2 L (39.6-50.0) % MCHC 30.4 L (32.0-37.0) g/dL RDW 15.0 H (11.5-14.5) % Immature Gran # 0.10 H (0.00-0.04) X 10*3/uL Neutrophils # 13.89 H (1.80-7.70) X 10*3/uL Lymphocytes # 0.37 L (0.90-5.00) X 10*3/uL Eosinophils # 0 L (0.04-0.35) X 10*3/uL PT 39.5 H (10.0-12.5) sec INR 4.0 H (<1.2) Potassium 5.9 H (3.5-5.5) mmol/L BUN 65.8 H (9.0-27.0) mg/dL Creatinine 2.1 H (0.6-1.5) mg/dL Est GFR (CKD-EPI) 30 L (>=60) BUN/Creatinine Ratio 31.33 H (12.00-20.00) Ratio Glucose 126 H (70-110) mg/dL Calcium 8.3 L (8.7-10.3) mg/dL Microbiology - Last 24 Hours (Table) 08/28/24 08:27 Blood Culture - Preliminary Blood Assessment and Plan Assessment: Suspect acute exacerbation of diastolic congestive heart failure Acute COPD exacerbation Acute hypoxemic respiratory failure, secondary to a combination of above, chest x-ray showing cardiomegaly, pulmonary vascular congestion, and right costophrenic angle blunting consistent with small pleural effusion. NT proBNP elevated at 7800 Acute on chronic kidney disease Hyperkalemia, treated with K cocktail in the ED Anemia of chronic disease Valvular heart disease, history of moderate mitral stenosis and previous mechanical aortic valve replacement. Chronically anticoagulated on warfarin Permanent pacemaker Hypertension History of hyperlipidemia Former tobacco dependence Plan: The patient was seen and evaluated Labs and medications reviewed Currently stable on 2 L nasal cannula Evaluate for possible home oxygen Continue Symbicort and albuterol Cleared for discharge Plan is for home with home care This patient was seen independently by the pulmonary nurse practitioner addressing pulmonary issues I have personally seen and examined the patient, performed the documentation and the assessment and plan as written. Number of minutes spent on the visit: 24 Dictation was produced using [employer] dictation software. Please excuse any grammatical, word or spelling errors.
[2024-08-30 13:31] VITALS: BP 133/71; PULSE 75; RESP 20; TEMP 98
--- NOTE | 2024-08-30 14:20 | P.DS ---
Providers Date of admission: 08/29/24 07:59 Discharge Diagnosis: Acute CHF exacerbation Acute COPD exacerbation Acute hypoxemic respiratory failure secondary to CHF/COPD exacerbation Hyperkalemia Hypertension Hyperlipidemia Anemia chronic disease History of valvular heart disease and previous mechanical valve replacement Permanent pacemaker Hospital Course: Patient is a 84-year-old male with COPD (no home oxygen), CHF, hyperlipidemia, hypertension, valvular heart disease and previous mechanical aortic valve replacement (on Coumadin), permanent pacemaker, prostate disorder presenting with severe shortness of breath. Patient states over the last 2 to 3 days he has increased shortness of breath while ambulating and at rest. He states that he woke up multiple times at night with shortness of breath. Says dyspnea is worse when laying down. States he sleeps in his chair. Patient admits to associated lower extremity edema over the last couple days. He denies any chest pain, heart palpitations, nausea, vomiting, diarrhea. Patient has chronic cough but denies any changes, denies sputum production, hemoptysis, fever, chills. EKG displays electronic ventricular pacemaker CXR independently interpreted displays prominent pulmonary vascular markings small right-sided pleural effusion Troponin 0.017, 0.019, 0.022, proBNP 7800, WBC 11.6, Hgb 9.9, sodium 138, potassium 5.8, BUN 47, creatinine 1.81, glucose 100, INR 3.2 97.8 F, MD 62, RR 16, BP 152/68, O2 sat 94% on 2 L nasal cannula Patient is admitted to internal medicine service. 08/29/2024: Patient seen and evaluated bedside. No acute complaints. No acute events overnight. States he is feeling much better. Reports that his swelling has gone down and in his legs. Was seen and cleared by cardiology. Pulmonology told him he is on the appropriate regiment. Patient states he feels weak still. Likely discharge tomorrow. 08/30/2024: Patient seen evaluated bedside. No acute complaints. No acute events overnight. States he feels much better and is ready to go home. He is being discharged on a prednisone taper, and oral Lasix. He is to follow-up with his primary care provider, and cardiology on 09/11/2024 at 4 PM. He is being discharged home with home health services. Pertinent positives and negatives as discussed above, a complete review of systems was performed and all other systems are negative. Vitals: Signs Reviewed Physical Exam: General: nontoxic, no distress, appears at stated age Derm: warm, dry, intact Head: atraumatic, normocephalic, symmetric Eyes: EOMI, anicteric sclera Mouth: no lip lesion, mucus membranes moist Cardiovascular: S1 S2 reg, no murmur, rubs, or gallops Lungs: bilateral crackles, no rhonchi, no rales, no accessory muscle use Abdominal: soft, non-tender to palpataion, no appreciable organomegaly Extremities: no gross muscle atrophy, no edema, no contractures Neuro: Alert, Oriented, CNII-XII grossly intact, gait normal Psych: well appearing, appropriate affect A total of greater than minutes of time were spent preparing this complex discharge summary. Patient was discharge on August 30, 2024 at 11:27 AM. Expected date of discharge: 08/30/24 Attending physician: Luna Mack Consults: 08/27/24 18:56 Consult Physician Routine Consulting Provider: Hitesh Campos Consult Reason/Comments: copd Do you want consulting provider notified?: Yes Consult Physician Routine Consulting Provider: Clay Prasad Consult Reason/Comments: chf Do you want consulting provider notified?: Yes Primary care physician: Coleman Nugent Patient Condition at Discharge: Serious Plan - Discharge Summary Discharge Rx Participant: No New Discharge Prescriptions: New Furosemide [Lasix] 20 mg PO DAILY #30 tab predniSONE 10 mg PO DAILY 8 Days #20 tab Continue amLODIPine [Norvasc] 5 mg PO BID Atorvastatin [Lipitor] 40 mg PO HS Loratadine [Claritin] 10 mg PO DAILY Metoprolol Tartrate [Lopressor] 50 mg PO BID tab HYDROcodone/APAP 5-325MG [Colrain 5-325] 1 tab PO BID PRN PRN Reason: Pain Amiodarone [Cordarone] 200 mg PO DAILY tab Nystatin 100,000 Unit/gm Powd [Mycostatin Powder] 1 applic TOPICAL BID each Budesonide-Formot 160-4.5 Mcg [Symbicort 160-4.5 Mcg Inhaler] 2 puff INHALATION RT-BID each Cholecalciferol [Vitamin D3 (25 Mcg = 1000 Iu)] 50 mcg PO DAILY tab Warfarin [Coumadin] 2.5 mg PO HS Ferrous Sulfate [Iron (65 MG Elemental)] 325 mg PO DAILY Discontinued Menthol-Zinc Oxide Oint [Calmoseptine Ointment] 1 applic TOPICAL BID each Fluticasone Nasal Penitas [Flonase Nasal Penitas] 2 spray EA NOSTRIL DAILY Discharge Medication List amLODIPine [Norvasc] 5 mg PO BID 05/14/19 [History] Atorvastatin [Lipitor] 40 mg PO HS 09/19/23 [History] Loratadine [Claritin] 10 mg PO DAILY 09/19/23 [History] Amiodarone [Cordarone] 200 mg PO DAILY tab 07/03/24 [Rx] Budesonide-Formot 160-4.5 Mcg [Symbicort 160-4.5 Mcg Inhaler] 2 puff INHALATION RT-BID each 07/03/24 [Rx] Cholecalciferol [Vitamin D3 (25 Mcg = 1000 Iu)] 50 mcg PO DAILY tab 07/03/24 [Rx] Metoprolol Tartrate [Lopressor] 50 mg PO BID tab 07/03/24 [Rx] Nystatin 100,000 Unit/gm Powd [Mycostatin Powder] 1 applic TOPICAL BID each 07/03/24 [Rx] Ferrous Sulfate [Iron (65 MG Elemental)] 325 mg PO DAILY 08/27/24 [History] HYDROcodone/APAP 5-325MG [Colrain 5-325] 1 tab PO BID PRN 08/27/24 [History] Warfarin [Coumadin] 2.5 mg PO HS 08/27/24 [History] Furosemide [Lasix] 20 mg PO DAILY #30 tab 08/30/24 [Rx] predniSONE 10 mg PO DAILY 8 Days #20 tab 08/30/24 [Rx] Follow up Appointment(s)/Referral(s): Coleman Nugent MD [Primary Care Provider] - 1-2 days Clay Prasad MD [STAFF PHYSICIAN] - 09/11/24 4:00 pm [facility] [NON-STAFF] - As Needed Patient Instructions/Handouts: Heart Failure (DC), Shortness of Breath (DC) Discharge Disposition: HOME WITH HOME HEALTH SERVICES
[2024-08-30] MEDS ORDERED: WARFARIN 0.5 MG TAB PO ONE (18:00)
== END 2024-08-30 13:56 | disposition home health service (06) | DRG 291 ==
LOC: EC 16:39 → 6NMEDSUR 18:56 → OBSVTOIN 08-29 07:59
PROVIDERS: ADMIT Hospitalist; ATTEND Hospitalist
DX: I13.0 Hypertensive heart and chronic kidney disease with heart failure and stage 1 through stage 4 chronic kidney disease, or unspecified chronic kidney disease (principal); I50.23 Acute on chronic systolic (congestive) heart failure; J96.01 Acute respiratory failure with hypoxia; J44.1 Chronic obstructive pulmonary disease with (acute) exacerbation; I48.4 Atypical atrial flutter; D63.1 Anemia in chronic kidney disease; E78.5 Hyperlipidemia, unspecified; E87.5 Hyperkalemia; F32.A Depression, unspecified; I27.20 Pulmonary hypertension, unspecified; N18.9 Chronic kidney disease, unspecified; I08.0 Rheumatic disorders of both mitral and aortic valves; Z79.01 Long term (current) use of anticoagulants; Z79.51 Long term (current) use of inhaled steroids; Z79.899 Other long term (current) drug therapy; Z85.46 Personal history of malignant neoplasm of prostate; Z87.891 Personal history of nicotine dependence; Z95.0 Presence of cardiac pacemaker; Z95.2 Presence of prosthetic heart valve
CPT/HCPCS: 36415; 71045; 80048; 80053; 83690; 83735; 83880; 84100; 84145; 84484; 85025; 85610; 85730; 87040; 87636; 93005; 93306; 94640; 94760; 96361; 96374; 96375; 99285

== ENCOUNTER 2024-08-31 22:59 | Inpatient (IN) | payer MEDICARE ==
[2024-09-01 00:15] LABS: Basophils % (A) 0 %; Eosinophils % (A) 0 %; HCT 34.9 % (39.0-53.0); HGB 11.1 gm/dL (13.0-17.5); Hypochromasia Slight; Lymphocytes # (A) 0.4 k/uL (1.0-4.8); Lymphocytes % (A) 2 %; MCH 29.8 pg (25.0-35.0); MCHC 31.9 g/dL (31.0-37.0); MCV 93.7 fL (80.0-100.0); Mean Platelet Volume 7.9; Monocytes # (A) 1.4 k/uL (0-1.0); Monocytes % (A) 7 %; Neutrophils # (A) 20.4 k/uL (1.3-7.7); Neutrophils % (A) 91 %; Platelet Count 214 k/uL (150-450); RBC 3.73 m/uL (4.30-5.90); RDW 14.9 % (11.5-15.5); WBC 22.4 k/uL (3.8-10.6)
[2024-09-01 00:28] LABS: ALT 15 U/L (4-49); AST 26 U/L (17-59); African American GFR (CKD) 37 (>60 ml/min/1.73 sqM); Albumin 3.9 g/dL (3.5-5.0); Alkaline Phosphatase 77 U/L (38-126); Anion Gap 7 mmol/L; Blood Urea Nitrogen 74 mg/dL (9-20); Calcium 8.5 mg/dL (8.4-10.2); Carbon Dioxide 24 mmol/L (22-30); Chloride 105 mmol/L (98-107); Glucose 107 mg/dL (74-99); Non-African American GFR(CKD) 32 (>60 ml/min/1.73 sqM); Potassium 5.2 mmol/L (3.5-5.1); Sodium 136 mmol/L (137-145); Total Bilirubin 0.7 mg/dL (0.2-1.3); Total Protein 7.8 g/dL (6.3-8.2)
--- NOTE | 2024-09-01 00:37 | ED ---
General Adult HPI - General Chief complaint: Shortness of Breath Stated complaint: SOB Time Seen by Provider: 08/31/24 23:12 Source: EMS Mode of arrival: EMS - History of Present Illness Initial comments: Patient is an 84-year-old gentleman with a past medical history of COPD, CHF Mechanical heart valve on Coumadin, hyperlipidemia, hypertension, recent admission for COPD exacerbation/CHF exacerbation presenting today for shortness of breath. Patient states he has felt short of breath x 2 days since discharge from the hospital. Today began having increased sputum production. States he is coughing so hard that his neck and shoulders hurt. Takes Vicodin at home for pain. Denies fevers, chills, chest pain, nausea, vomiting, diarrhea, palpitations, hemoptysis. - Related Data Home Medications Medication Instructions Recorded Confirmed amLODIPine [Norvasc] 5 mg PO BID 05/14/19 09/01/24 Atorvastatin [Lipitor] 40 mg PO HS 09/19/23 09/01/24 Loratadine [Claritin] 10 mg PO DAILY 09/19/23 09/01/24 Ferrous Sulfate [Iron (65 MG 325 mg PO DAILY 08/27/24 09/01/24 Elemental)] HYDROcodone/APAP 5-325MG [[place] 1 tab PO BID PRN 08/27/24 09/01/24 5-325] Warfarin [Coumadin] 2.5 mg PO HS 08/27/24 09/01/24 predniSONE See Taper PO DIRECTED 09/01/24 09/01/24 Previous Rx's Medication Instructions Recorded Amiodarone [Cordarone] 200 mg PO DAILY tab 07/03/24 Budesonide-Formot 160-4.5 Mcg 2 puff INHALATION RT-BID each 07/03/24 [Symbicort 160-4.5 Mcg Inhaler] Cholecalciferol [Vitamin D3 (25 50 mcg PO DAILY tab 07/03/24 Mcg = 1000 Iu)] Metoprolol Tartrate [Lopressor] 50 mg PO BID tab 07/03/24 Nystatin 100,000 Unit/gm Powd 1 applic TOPICAL BID each 07/03/24 [Mycostatin Powder] Furosemide [Lasix] 20 mg PO DAILY #30 tab 08/30/24 Allergies Allergy/AdvReac Type Severity Reaction Status Date / Time dopamine Allergy "WAS TOLD Verified 09/01/24 13:01 NOT TO HAVE RX AGAIN,VERY ILL STATES ALMOST " methylprednisolone AdvReac Hallucinati Verified 09/01/24 13:01 [From [facility]Med[facility]] ons Review of Systems ROS Statement: Those systems with pertinent positive or pertinent negative responses have been documented in the HPI. ROS Other: All systems not noted in ROS Statement are negative. Past Medical History Past Medical History: Cancer, Heart Failure, COPD, Hyperlipidemia, Hypertension, Osteoarthritis (OA), Pneumonia, Prostate Disorder Additional Past Medical History / Comment(s): ARRYTHYTHMIA,AORTIC VALVE REPLACEMENT,PROSTATE CANCER, History of Any Multi-Drug Resistant Organisms: None Reported Past Surgical History: Cardiac Valve Replacement, Pacemaker, Tonsillectomy Additional Past Surgical History / Comment(s): vasectomy. carotid artery. Permanent Pacemaker by Dr Clark Past Anesthesia/Blood Transfusion Reactions: No Reported Reaction Type of Cardiac Device: Permanent Pacemaker Device Placement Date:: 10/30/2020 Past Psychological History: Depression Smoking Status: Former smoker Past Alcohol Use History: None Reported Past Drug Use History: None Reported - Past Family History Mother History Unknown: Yes Family Medical History: Cancer General Exam - General Exam Comments Initial Comments: PE: CONSTITUTIONAL: Mild distress, ill appearing SKIN: Warm, dry, no jaundice, hives or petechiae EYES: Pupils are equally round, extraocular movements intact without nystagmus, clear conjunctiva, non-icteric sclera HENT: Normocephalic, atraumatic, moist mucus membranes, oropharynx clear without exudates NECK: , Full range of motion, normal appearance PULMONARY: Mildly tachypneic, coarse breath sounds bilaterally rhonchi and rales in the bilateral lung bases with scant wheezes in the apices, decreased excursion, no accessory muscle use or stridor CARDIOVASCULAR: Regular rate, rhythm, normal S1 and S2. No appreciated murmurs, rubs or gallops. Strong radial pulses with intact distal perfusion. Bilateral 1+ pitting edema GASTROINTESTINAL: Soft, active bowel sounds throughout, non-tender, non- distended, no palpable masses, no rebound or guarding. No hepatosplenomegaly GENITOURINARY: MUSCULOSKELETAL: Extremities have no gross deformity redness, or swelling. No calf swelling NEUROLOGIC:_a/o x 3, GCS 15, normal mentation and speech. Moves all extremities x 4 without motor or sensory deficit PSYCHIATRIC:_normal mood and affect, thought process is clear and linear Course Vital Signs 08/31/24 08/31/24 09/01/24 23:05 23:51 00:41 Temperature 97.9 F Pulse Rate 90 68 61 Respiratory 20 24 Rate Blood Pressure 131/57 140/54 O2 Sat by Pulse 94 L 95 Oximetry 09/01/24 09/01/24 09/01/24 00:57 00:58 01:10 EDT Temperature Pulse Rate 66 66 68 Respiratory Rate Blood Pressure O2 Sat by Pulse Oximetry 09/01/24 09/01/24 09/01/24 01:26 EDT 02:48 02:55 Temperature Pulse Rate 64 60 66 Respiratory 22 Rate Blood Pressure 148/71 O2 Sat by Pulse 97 Oximetry 09/01/24 03:36 Temperature 97.6 F Pulse Rate 60 Respiratory 22 Rate Blood Pressure 137/52 O2 Sat by Pulse 92 L Oximetry EKG Findings - EKG Comments: EKG Findings:: Electronic paced rhythm, rate 74 bpm, IA interval unable to calculate, QRS duration 191 ms, QT/QTc 474/502 ms left axis deviation, right axis deviation, no ST elevation or depression, compared to EKG performed on 08/27/2024, no significant changes from prior Medical Decision Making - Medical Decision Making Was pt. sent in by a medical professional or institution (, PA, CAROUSEL OPERATOR, urgent care, hospital, or senior care...) When possible be specific @ -No Did you speak to anyone other than the patient for history (EMS, parent, family, police, friend...)? What history was obtained from this source @ -No Did you review nursing and triage notes (agree or disagree)? Why? @ -I reviewed and agree with nursing and triage notes Were old charts reviewed (outside hosp., previous admission, EMS record, old EKG, old radiological studies, urgent care reports/EKG's, senior care records)? Report findings @Records reviewed- Reviewed discharge summary from admission on 08/27/2024, discharged on 08/30/24, was admitted for shortness of breath, at that time chest x-ray showed prominent pulmonary vascular markings and right sided pleural effusion, BNP 7800, ultimately patient discharged on prednisone taper and oral Lasix Differential Diagnosis (chest pain, altered mental status, abdominal pain women, abdominal pain men, vaginal bleeding, weakness, fever, dyspnea, syncope, headache, dizziness, GI bleed, back pain, seizure, CVA, palpatations, mental health, musculoskeletal)? @Differential Dyspnea: Coronary syndrome, arrhythmia, tamponade, asthma, COPD, pulmonary embolism, pneumonia, pneumothorax, pulmonary effusion, anaphylaxis, diabetic ketoacidosis, flailed chest, pulmonary contusion, diaphragmatic rupture, anemia, n euromuscular, this is not meant to be an all-inclusive list. EKG interpreted by me (3pts min.). @ -As above X-rays interpreted by me (1pt min.). @ Cardiomegaly, increased interstitial markings concerning for pulmonary edema, possible LLL consolidation, appears increased from XR on 08/27/24 CT interpreted by me (1pt min.). @ -None done U/S interpreted by me (1pt. min.). @ -None done What testing was considered but not performed or refused? (CT, X-rays, U/S, labs)? Why? @ -None What meds were considered but not given or refused? Why? @ -None Did you discuss the management of the patient with other professionals (professionals i.e. , PA, CAROUSEL OPERATOR, lab, RT, psych nurse, social services, music adapter, te acher, vessel traffic officer, field case manager)? Give summary @ -No Was smoking cessation discussed for >3mins.? @ -No Was critical care preformed (if so, how long)? @Yes, 35 minutes Were there social determinants of health that impacted care today? How? (Homelessness, low income, unemployed, alcoholism, drug addiction, transportation, low edu. Level, literacy, decrease access to med. care, care home, rehab)? @ -No Was there de-escalation of care discussed even if they declined (Discuss DNR or withdrawal of care, Hospice)? @ -No What co-morbidities impacted this encounter? (DM, HTN, Smoking, COPD, CAD, Canc er, CVA, ARF, Chemo, Hep., AIDS, mental health diagnosis, sleep apnea, morbid obesity)? @ -Mechanical heart valve, CHF, COPD Was patient admitted / discharged? Hospital course, mention meds given and route, prescriptions, significant lab abnormalities, going to OR and other pertinent info. @Admission-patient is a pleasant 84-year-old gentleman presenting today for shortness of breath and increased sputum production. Recently admitted for shortness of breath and discharged on 08/30/2024 after being diagnosed with CHF exacerbation, COPD exacerbation. Sputum production is new today. On my asse ssment patient is mildly tachypneic, coughing up thick yellow sputum, scant distal LE pitting edema, Rhochi and rales in bilat lung bases with scant wheezes, is limited due to patient's ability to take deep breaths without coughing. Discussed plan for nebulizers, CXR labs, pain control. Pt agreeable with plan. Pt states allergic to solumedrol to prednisone ordered for steroid. Reviewed patient's labs, significant for leukocytosis with white blood cell count 22.4, potassium 5.2, creatinine 1.89, BNP 6340, chest x-ray read by radiologist as cardiomegaly with small right pleural effusion and bilateral interstitial edema consistent with CHF exacerbation. Lasix ordered for "current CHF exacerbation and mild hyperkalemia. Zosyn for possible concurrent pneumonia especially with patient's increased sputum production. On reassessment breath sounds slightly improved. Pt still mildly tachypneic, large amount of sputum production. Discussed plan for admission, pt agreeable wt plan. Case discussed with ASHLEY Cee who kindly accept patient for admission. Undiagnosed new problem with uncertain prognosis? @ -No Drug Therapy requiring intensive monitoring for toxicity (Heparin, Nitro, I nsulin, Cardizem)? @ -No Were any procedures done? @ -No Diagnosis/symptom? @Pneumonia, COPD exacerbation, CHF exacerbation Acute, or Chronic, or Acute on Chronic? @ acute on chronic Uncomplicated (without systemic symptoms) or Complicated (systemic symptoms)? @ -Complicated Side effects of treatment? @ -No Exacerbation, Progression, or Severe Exacerbation? @Exacerbation Poses a threat to life or bodily function? How? (Chest pain, [place], [place], pneumonia, PE, COPD, DKA, ARF, appy, cholecystitis, CVA, Diverticulitis, Homicidal, Suicidal, threat to staff... and all critical care pts) @Yes - Lab Data Result diagrams: 08/31/24 23:57 08/31/24 23:57 Lab Results 08/31/24 08/31/24 08/31/24 Range/Units 23:57 23:57 23:57 WBC 22.4 H (3.8-10.6) k/uL RBC 3.73 L (4.30-5.90) m/uL Hgb 11.1 L (13.0-17.5) gm/dL Hct 34.9 L (39.0-53.0) % MCV 93.7 (80.0-100.0) fL MCH 29.8 (25.0-35.0) pg MCHC 31.9 (31.0-37.0) g/dL RDW 14.9 (11.5-15.5) % Plt Count 214 (150-450) k/uL MPV 7.9 Neutrophils % 91 % Lymphocytes % 2 % Monocytes % 7 % Eosinophils % 0 % Basophils % 0 % Neutrophils # 20.4 H (1.3-7.7) k/uL Lymphocytes # 0.4 L (1.0-4.8) k/uL Monocytes # 1.4 H (0-1.0) k/uL Eosinophils # 0.0 (0-0.7) k/uL Basophils # 0.0 (0-0.2) k/uL Hypochromasia Slight PT (10.0-12.5) sec INR (<1.2) Sodium 136 L (137-145) mmol/L Potassium 5.2 H (3.5-5.1) mmol/L Chloride 105 (98-107) mmol/L Carbon Dioxide 24 (22-30) mmol/L Anion Gap 7 mmol/L BUN 74 H (9-20) mg/dL Creatinine 1.89 H (0.66-1.25) mg/dL Est GFR (CKD-EPI)AfAm 37 (>60 ml/min/1.73 sqM) Est GFR (CKD-EPI)NonAf 32 (>60 ml/min/1.73 sqM) Glucose 107 H (74-99) mg/dL Plasma Lactic Acid Omi 1.8 (0.7-2.0) mmol/L Calcium 8.5 (8.4-10.2) mg/dL Total Bilirubin 0.7 (0.2-1.3) mg/dL AST 26 (17-59) U/L ALT 15 (4-49) U/L Alkaline Phosphatase 77 (38-126) U/L Troponin I (0.000-0.034) ng/mL NT-Pro-B Natriuret Pep pg/mL Total Protein 7.8 (6.3-8.2) g/dL Albumin 3.9 (3.5-5.0) g/dL Procalcitonin (0.02-0.50) ng/mL Influenza Type A (PCR) (Not Detectd) Influenza Type B (PCR) (Not Detectd) RSV (PCR) (Not Detectd) SARS-CoV-2 (PCR) (Not Detectd) 08/31/24 08/31/24 08/31/24 Range/Units 23:57 23:57 23:57 WBC (3.8-10.6) k/uL RBC (4.30-5.90) m/uL Hgb (13.0-17.5) gm/dL Hct (39.0-53.0) % MCV (80.0-100.0) fL MCH (25.0-35.0) pg MCHC (31.0-37.0) g/dL RDW (11.5-15.5) % Plt Count (150-450) k/uL MPV Neutrophils % % Lymphocytes % % Monocytes % % Eosinophils % % Basophils % % Neutrophils # (1.3-7.7) k/uL Lymphocytes # (1.0-4.8) k/uL Monocytes # (0-1.0) k/uL Eosinophils # (0-0.7) k/uL Basophils # (0-0.2) k/uL Hypochromasia PT (10.0-12.5) sec INR (<1.2) Sodium (137-145) mmol/L Potassium (3.5-5.1) mmol/L Chloride (98-107) mmol/L Carbon Dioxide (22-30) mmol/L Anion Gap mmol/L BUN (9-20) mg/dL Creatinine (0.66-1.25) mg/dL Est GFR (CKD-EPI)AfAm (>60 ml/min/1.73 sqM) Est GFR (CKD-EPI)NonAf (>60 ml/min/1.73 sqM) Glucose (74-99) mg/dL Plasma Lactic Acid Omi (0.7-2.0) mmol/L Calcium (8.4-10.2) mg/dL Total Bilirubin (0.2-1.3) mg/dL AST (17-59) U/L ALT (4-49) U/L Alkaline Phosphatase (38-126) U/L Troponin I 0.028 (0.000-0.034) ng/mL NT-Pro-B Natriuret Pep 6340 pg/mL Total Protein (6.3-8.2) g/dL Albumin (3.5-5.0) g/dL Procalcitonin 0.12 (0.02-0.50) ng/mL Influenza Type A (PCR) (Not Detectd) Influenza Type B (PCR) (Not Detectd) RSV (PCR) (Not Detectd) SARS-CoV-2 (PCR) (Not Detectd) 09/01/24 09/01/24 09/02/24 Range/Units 01:54 EST 06:18 05:59 WBC (3.8-10.6) k/uL RBC (4.30-5.90) m/uL Hgb (13.0-17.5) gm/dL Hct (39.0-53.0) % MCV (80.0-100.0) fL MCH (25.0-35.0) pg MCHC (31.0-37.0) g/dL RDW (11.5-15.5) % Plt Count (150-450) k/uL MPV Neutrophils % % Lymphocytes % % Monocytes % % Eosinophils % % Basophils % % Neutrophils # (1.3-7.7) k/uL Lymphocytes # (1.0-4.8) k/uL Monocytes # (0-1.0) k/uL Eosinophils # (0-0.7) k/uL Basophils # (0-0.2) k/uL Hypochromasia PT 56.0 H 74.2 H (10.0-12.5) sec INR 5.7 H* 7.5 H* (<1.2) Sodium (137-145) mmol/L Potassium (3.5-5.1) mmol/L Chloride (98-107) mmol/L Carbon Dioxide (22-30) mmol/L Anion Gap mmol/L BUN (9-20) mg/dL Creatinine (0.66-1.25) mg/dL Est GFR (CKD-EPI)AfAm (>60 ml/min/1.73 sqM) Est GFR (CKD-EPI)NonAf (>60 ml/min/1.73 sqM) Glucose (74-99) mg/dL Plasma Lactic Acid Omi (0.7-2.0) mmol/L Calcium (8.4-10.2) mg/dL Total Bilirubin (0.2-1.3) mg/dL AST (17-59) U/L ALT (4-49) U/L Alkaline Phosphatase (38-126) U/L Troponin I (0.000-0.034) ng/mL NT-Pro-B Natriuret Pep pg/mL Total Protein (6.3-8.2) g/dL Albumin (3.5-5.0) g/dL Procalcitonin (0.02-0.50) ng/mL Influenza Type A (PCR) Not Detected (Not Detectd) Influenza Type B (PCR) Not Detected (Not Detectd) RSV (PCR) Not Detected (Not Detectd) SARS-CoV-2 (PCR) Not Detected (Not Detectd) Disposition Clinical Impression: COPD exacerbation Disposition: ADMITTED IP TO THIS HOSP Condition: Good
[2024-09-01] MEDS: IPRATROPIUM-ALBUTEROL 3 ML NEB INHALATION STA (00:41)
[2024-09-01] MEDS: ALBUTEROL NEBULIZED 2.5 MG/3 ML INHALATION SCH (00:41)
[2024-09-01] MEDS: HYDROcodone/APAP 5-325MG 1 EACH TAB PO STA (01:26)
[2024-09-01] MEDS: ONDANSETRON 4 MG/2 ML VIAL IVP STA (01:28)
[2024-09-01] MEDS: MORPHINE SULFATE 2 MG/ML SYRINGE IVP STA (01:31)
[2024-09-01] MEDS: FUROSEMIDE 10 MG/ML 2 ML VIAL IV ONE (01:33)
--- NOTE | 2024-09-01 01:33 | XR ---
EXAMINATION TYPE: XR chest 2V DATE OF EXAM: 09/01/2024 COMPARISON: Chest x-ray August 27, 2024 HISTORY: Difficulty in breathing. TECHNIQUE: Frontal and lateral views of the chest are obtained. FINDINGS: Overlying sternal wires are redemonstrated. Persistent cardiomegaly with dual lead pacemak er and atherosclerotic thoracic aorta. Persistent small right pleural effusion. Increased interstitia l markings bilaterally are redemonstrated The osseous structures are intact. IMPRESSION: Cardiomegaly with small right pleural effusion and mild bilateral interstitial edema red emonstrated. Findings are consistent with CHF exacerbation/fluid overload state. No significant servin e from most recent chest x-ray. [facility], , 09/01/2024 1:31 AM
[2024-09-01] MEDS ORDERED: MAG HYDROX/AL HYDROX/SIMETH 30 ML CUP PO PRN (02:24)
[2024-09-01] MEDS ORDERED: ACETAMINOPHEN TAB 325 MG TAB PO PRN (02:24)
[2024-09-01] MEDS ORDERED: ALPRAZolam 0.25 MG TAB PO PRN (02:24)
[2024-09-01] MEDS ORDERED: NALOXONE 0.4 MG/ML 1 ML VIAL IV PRN (02:24)
[2024-09-01] MEDS ORDERED: ONDANSETRON 4 MG/2 ML VIAL IVP PRN (02:24)
[2024-09-01] MEDS ORDERED: HYDROcodone/APAP 5-325MG 1 EACH TAB PO PRN (02:26)
[2024-09-01] MEDS: HYPERTONIC SALINE 3% NEBULIZ 4 ML NEBU INHALATION ONE (02:47)
[2024-09-01] MEDS: predniSONE 50 MG TAB PO STA (03:12)
[2024-09-01] MEDS: cefTRIAXone IN SWFI 1,000 MG/10 ML SYRINGE IVP STA (03:32)
[2024-09-01] MEDS: AZITHROMYCIN 500 MG in SODIUM CHLORIDE 0.9% 250 ML IVPB STA (03:33)
[2024-09-01] MEDS: PIPERACILLIN-TAZOBACTAM 3.375 GM in SODIUM CHLORIDE 0.9% 100 ML IVPB STA (03:34)
[2024-09-01] MEDS: DEXTROSE 5%-0.45% NACL 1,000 ML IV SCH (04:55)
[2024-09-01] MEDS: MORPHINE SULFATE 4 MG/ML SYRINGE IV PRN (05:19)
[2024-09-01 07:10] LABS: INR 5.7 (<1.2)
[2024-09-01] MEDS ORDERED: FAMOTIDINE 20 MG TAB PO SCH (09:00)
[2024-09-01] MEDS: SYMBICORT 160-4.5 MCG INHALER INHALATION SCH (09:00)
[2024-09-01] MEDS: FUROSEMIDE 10 MG/ML 2 ML VIAL IV SCH (10:12)
[2024-09-01] MEDS: LORATADINE 10 MG TAB PO SCH (12:00)
[2024-09-01] MEDS: amLODIPine 5 MG TAB PO SCH (12:00)
[2024-09-01] MEDS: FERROUS SULFATE 325 MG TAB PO SCH (12:00)
[2024-09-01] MEDS: CHOLECALCIFEROL 25 MCG (1000 IU) TABLET PO SCH (12:00)
[2024-09-01] MEDS: METOPROLOL TARTRATE 50 MG TAB PO SCH (12:00)
[2024-09-01] MEDS: AMIODARONE 200 MG TAB PO SCH (12:00)
[2024-09-01] MEDS: FUROSEMIDE 20 MG TAB PO SCH (12:01)
--- NOTE | 2024-09-01 12:01 | P.CNPUL ---
History of Present Illness Consult date: 09/01/24 Requesting physician: Checo Muniz Reason for consult: dyspnea, abnormal CXR/CT Chief complaint: Shortness of breath History of present illness: This is a very pleasant 84-year-old male patient with past medical history significant for COPD, hyperlipidemia, hypertension, valvular heart disease and previous mechanical aortic valve replacement, maintained on warfarin, pacemaker, and prostate disorder. He was just discharged from here on August 30, 2024 following congestive heart failure exacerbation. He was found to have an impaired left ventricular systolic function and ejection fraction 35 to 40%. He was on Lasix 20 mg p.o. daily. He presented back to the emergency room late last evening with increasing shortness of breath. Chest x-ray shows cardiomegaly with small right pleural effusion and mild bilateral interstitial edema. White count 22.4. Hemoglobin 9.1. Platelets 214. INR 5.7. Sodium 136. Potassium 5.2. Bicarb 24. BUN 74. Creatinine 1.89. Glucose 107. Viral screen is negative. Procalcitonin negative at 0.12. He has been initiated on Lasix 20 mg IV every 12 hours. He is seen today in follow-up in the regular medical floor. He is currently sitting up in bed. Awake and alert. He is dyspneic with conversation. Dyspneic with minimal exertion. O2 saturations at 90% on 4 L/min per nasal cannula. He is afebrile. Hemodynamically stable. Review of Systems REVIEW OF SYSTEMS: CONSTITUTIONAL: Denies any recent significant weight loss or weight gain. EYES: Denies change in vision. EARS, NOSE, MOUTH, THROAT: Denies headaches, denies sore throat. CARDIOVASCULAR: Denies chest pain, palpitations or syncopal episodes. RESPIRATORY: Positive for shortness of breath, no cough, congestion or hemoptysis. GASTROINTESTINAL: Denies change in appetite, denies abdominal pain GENITOURINARY: Denies hematuria, denies infections. MUSKULOSKELETAL: Denies pain, denies swelling. INTEGUMENTARY: Denies rash, denies eczema. NEUROLOGICAL: Denies recent memory loss, no recent seizure activity. PSYCHIATRIC: Denies anxiety, denies depression. HEMATOLOGIC/LYMPHATIC: Denies anemia, denies enlarged lymph nodes. Past Medical History Past Medical History: Cancer, Heart Failure, COPD, Hyperlipidemia, Hypertension, Osteoarthritis (OA), Pneumonia, Prostate Disorder Additional Past Medical History / Comment(s): ARRYTHYTHMIA,AORTIC VALVE REPLACEMENT,PROSTATE CANCER, History of Any Multi-Drug Resistant Organisms: None Reported Past Surgical History: Cardiac Valve Replacement, Pacemaker, Tonsillectomy Additional Past Surgical History / Comment(s): vasectomy. carotid artery. Permanent Pacemaker by Dr Clark Past Anesthesia/Blood Transfusion Reactions: No Reported Reaction Type of Cardiac Device: Permanent Pacemaker Device Placement Date:: 10/30/2020 Past Psychological History: Depression Smoking Status: Former smoker Past Alcohol Use History: None Reported Additional Past Alcohol Use History / Comment(s): STARTED SMOKING AT AGE 13 QUIT 1998 [id number] Past Drug Use History: None Reported - Past Family History Mother History Unknown: Yes Family Medical History: Cancer Medications and Allergies Home Medications Medication Instructions Recorded Confirmed Type amLODIPine [Norvasc] 5 mg PO BID 05/14/19 08/27/24 History Atorvastatin [Lipitor] 40 mg PO HS 09/19/23 08/27/24 History Loratadine [Claritin] 10 mg PO DAILY 09/19/23 08/27/24 History Amiodarone [Cordarone] 200 mg PO DAILY tab 07/03/24 08/27/24 Rx Budesonide-Formot 160-4.5 Mcg 2 puff INHALATION RT-BID each 07/03/24 08/27/24 Rx [Symbicort 160-4.5 Mcg Inhaler] Cholecalciferol [Vitamin D3 (25 50 mcg PO DAILY tab 07/03/24 08/27/24 Rx Mcg = 1000 Iu)] Metoprolol Tartrate [Lopressor] 50 mg PO BID tab 07/03/24 08/27/24 Rx Nystatin 100,000 Unit/gm Powd 1 applic TOPICAL BID each 07/03/24 08/27/24 Rx [Mycostatin Powder] Ferrous Sulfate [Iron (65 MG 325 mg PO DAILY 08/27/24 08/27/24 History Elemental)] HYDROcodone/APAP 5-325MG [[place] 1 tab PO BID PRN 08/27/24 08/27/24 History 5-325] Warfarin [Coumadin] 2.5 mg PO HS 08/27/24 08/27/24 History Furosemide [Lasix] 20 mg PO DAILY #30 tab 08/30/24 Rx predniSONE 10 mg PO DAILY 8 Days #20 tab 08/30/24 Rx Allergies Allergy/AdvReac Type Severity Reaction Status Date / Time dopamine Allergy "WAS TOLD Verified 08/31/24 23:11 NOT TO HAVE RX AGAIN,VERY ILL STATES ALMOST " methylprednisolone AdvReac Hallucinati Verified 08/31/24 23:11 [From [facility]] ons Physical Exam Vitals: Vital Signs Temp Pulse Pulse Resp BP BP Pulse Ox 09/01/24 11:01 09/01/24 09:53 09/01/24 09:00 90 L 09/01/24 08:29 97.4 F L 62 17 151/57 92 L 09/01/24 04:45 61 18 09/01/24 04:11 97.4 F L 61 18 137/63 96 09/01/24 03:36 97.6 F 60 22 137/52 92 L 09/01/24 02:55 66 09/01/24 02:48 60 09/01/24 01:26 EDT 64 22 148/71 97 09/01/24 01:10 EDT 68 09/01/24 00:58 66 09/01/24 00:57 66 09/01/24 00:41 61 08/31/24 23:51 68 24 140/54 95 08/31/24 23:05 97.9 F 90 20 131/57 94 L FiO2 09/01/24 11:01 40 09/01/24 09:53 40 09/01/24 09:00 09/01/24 08:29 09/01/24 04:45 09/01/24 04:11 09/01/24 03:36 09/01/24 02:55 09/01/24 02:48 09/01/24 01:26 EDT 09/01/24 01:10 EDT 09/01/24 00:58 09/01/24 00:57 09/01/24 00:41 08/31/24 23:51 08/31/24 23:05 Intake and Output 08/31/24 09/01/24 09/01/24 23:59 06:59 14:59 Output Total Balance Output: Urine Other: Voiding Method Weight GENERAL EXAM: Alert, pleasant 84-year-old male, on 4 L nasal cannula, in mild respiratory distress. HEAD: Normocephalic and atraumatic EYES: Normal reaction of pupils, equal size. NOSE: Clear with pink turbinates. THROAT: No erythema or exudates. NECK: No masses, no JVD. CHEST: No chest wall deformity. LUNGS: Equal air entry with faint expiratory wheezes heard bilaterally throughout. No conversational dyspnea. CVS: S1 and S2 normal with no audible murmur, regular rhythm. No extra heart sounds ABDOMEN: No hepatosplenomegaly, active bowel sounds, no guarding or rigidity. SPINE: No scoliosis or deformity SKIN: No rashes CENTRAL NERVOUS SYSTEM: No focal deficits, tone is normal in all 4 extremities. EXTREMITIES: There is 1-2+ bilateral pitting lower extremity edema. No clubbing or cyanosis. Peripheral pulses are intact. Results - Laboratory Findings CBC and BMP: 08/31/24 23:57 08/31/24 23:57 PT/INR, D-dimer PT 56.0 sec (10.0-12.5) H 09/01/24 06:18 INR 5.7 (<1.2) H* 09/01/24 06:18 Abnormal lab findings: Abnormal Labs 08/31/24 08/31/24 09/01/24 23:57 23:57 06:18 WBC 22.4 H RBC 3.73 L Hgb 11.1 L Hct 34.9 L Neutrophils # 20.4 H Lymphocytes # 0.4 L Monocytes # 1.4 H PT 56.0 H INR 5.7 H* Sodium 136 L Potassium 5.2 H BUN 74 H Creatinine 1.89 H Glucose 107 H - Diagnostic Findings Chest x-ray: image reviewed Assessment and Plan Assessment: Acute exacerbation of chronic systolic congestive heart failure. Echocardiogram reveals impaired left ventricular systolic function with an ejection fraction of 35 to 40% Acute hypoxemic respiratory failure, secondary to above, chest x-ray showing cardiomegaly, with small right pleural effusion and mild bilateral interstitial edema. NT proBNP elevated at 6340 Acute on chronic kidney disease Hyperkalemia secondary to above Anemia of chronic disease Valvular heart disease, history of moderate mitral stenosis and previous mechanical aortic valve replacement Chronically anticoagulated on warfarin, supra therapeutic Permanent pacemaker Hypertension History of hyperlipidemia Former tobacco dependence Chronic obstructive pulmonary disease Plan: The patient was seen and evaluated Labs and medications reviewed Procalcitonin negative Antibiotics discontinued Continue IV diuretics Initiate BiPAP 12/5 and 40% FiO2 Hold warfarin today May need subacute rehabilitation at discharge We will continue to follow and make further recommendations based on his clinical status I have personally seen and examined the patient, performed the documentation and the assessment and plan as written. Number of minutes spent on the visit: 20 Dictation was produced using [employer] dictation software. Please excuse any grammatical, word or spelling errors.
[2024-09-01] MEDS: WARFARIN 2.5 MG TAB PO SCH (12:02)
--- NOTE | 2024-09-01 13:26 | P.HPIM ---
History of Present Illness H&P Date: 09/01/24 History of present illness; patient is a 84-year-old gentleman with past medical history significant for COPD, CHF, bacteremia probably hyperlipidemia, hypertension brought in the ER because of shortness of breath. Patient was admitted in the hospital recently. Patient states that he has been having shortness of breath for the last 2 days. Shortness of breath was present on rest as well as on exertion. Patient denies any chest pain. There was no complaint of any fever or chills. Patient denied any swelling of feet. There was no complaint nausea, vomit abdominal pain. Because of the symptoms, patient presented to the ER Initial lab work done in the ER showed WBC 22.4, hemoglobin 9.1, platelet count 214, sodium 136 potassium 5.2, BUN 74, creatinine 1.89 Influenza A not detected Influenza B not detected RSV not detected COVID-19 not detected EKG done in the ER showed heart rate of 74, paced rhythm Chest x-ray done in the ER showed cardiomegaly with small right pleural effusion and mild bilateral interstitial edema. Patient admitted to internal medicine service REVIEW OF SYSTEMS: CONSTITUTIONAL: No fever, no malaise, no fatigue. HEENT: No recent visual problems or hearing problems. Denied any sore throat. CARDIOVASCULAR: As mentioned above PULMONARY: As mentioned above GASTROINTESTINAL: as mentioned above NEUROLOGICAL: No headaches, no weakness, no numbness. HEMATOLOGICAL: Denies any bleeding or petechiae. GENITOURINARY: Denies any burning micturition, frequency, or urgency. MUSCULOSKELETAL/RHEUMATOLOGICAL: Denies any joint pain, swelling, or any muscle pain. ENDOCRINE: Denies any polyuria or polydipsia. The rest of the 14-point review of systems is negative. PHYSICAL EXAMINATION: GENERAL: The patient is alert, chronically ill looking HEENT: Pupils are round and equally reacting to light. EOMI. No scleral icterus. No conjunctival pallor. Normocephalic, atraumatic. No pharyngeal erythema. No thyromegaly. CARDIOVASCULAR: S1 and S2 present. No murmurs, rubs, or gallops. PULMONARY: Diminished breath sound the bases bilaterally, bilateral rhonchi a udible ABDOMEN: Soft, nontender, nondistended, normoactive bowel sounds. No palpable organomegaly. MUSCULOSKELETAL: No joint swelling or deformity. EXTREMITIES: No cyanosis, clubbing, or pedal edema. NEUROLOGICAL: Gross neurological examination did not reveal any focal deficits. SKIN: No rashes. Assessment and plan Acute COPD exacerbation Acute on chronic hypoxemic respiratory failure Acute on chronic systolic CHF Supratherapeutic INR Anemia of chronic disease Valvular heart disease, history of moderate mitral stenosis and previous mechanical aortic valve replacement. Chronically anticoagulated on warfarin Permanent pacemaker Hypertension History of hyperlipidemia Monitor vital signs Monitor CBC Monitor CMP Continue telemetry monitoring Continue oxygen supplementation Ordered BiPAP as needed Ordered speech evaluation Ordered breathing treatment Ordered IV Lasix 20 mg every 12 Continue breathing treatments Hold Coumadin Consult cardiology Consult pulmonary Labs and medication were reviewed.. Continue same treatment. Continue with symptomatic treatment. Resume home medication. Monitor labs and vitals. DVT and GI prophylaxis. Further recommendations as per clinical course of the patient Dictation was produced using [employer] dictation software. please excuse any grammatical, word or spelling errors. Past Medical History Past Medical History: Cancer, Heart Failure, COPD, Hyperlipidemia, Hypertension, Osteoarthritis (OA), Pneumonia, Prostate Disorder Additional Past Medical History / Comment(s): ARRYTHYTHMIA,AORTIC VALVE REPLACEMENT,PROSTATE CANCER, History of Any Multi-Drug Resistant Organisms: None Reported Past Surgical History: Cardiac Valve Replacement, Pacemaker, Tonsillectomy Additional Past Surgical History / Comment(s): vasectomy. carotid artery. Permanent Pacemaker by Dr Clark Past Anesthesia/Blood Transfusion Reactions: No Reported Reaction Type of Cardiac Device: Permanent Pacemaker Device Placement Date:: 10/30/2020 Past Psychological History: Depression Smoking Status: Former smoker Past Alcohol Use History: None Reported Additional Past Alcohol Use History / Comment(s): STARTED SMOKING AT AGE 13 QUIT 1998 SMOKED1-2PPD Past Drug Use History: None Reported - Past Family History Mother History Unknown: Yes Family Medical History: Cancer Medications and Allergies Home Medications Medication Instructions Recorded Confirmed Type amLODIPine [Norvasc] 5 mg PO BID 05/14/19 09/01/24 History Atorvastatin [Lipitor] 40 mg PO HS 09/19/23 09/01/24 History Loratadine [Claritin] 10 mg PO DAILY 09/19/23 09/01/24 History Amiodarone [Cordarone] 200 mg PO DAILY tab 07/03/24 09/01/24 Rx Budesonide-Formot 160-4.5 Mcg 2 puff INHALATION RT-BID each 07/03/24 09/01/24 Rx [Symbicort 160-4.5 Mcg Inhaler] Cholecalciferol [Vitamin D3 (25 50 mcg PO DAILY tab 07/03/24 09/01/24 Rx Mcg = 1000 Iu)] Metoprolol Tartrate [Lopressor] 50 mg PO BID tab 07/03/24 09/01/24 Rx Nystatin 100,000 Unit/gm Powd 1 applic TOPICAL BID each 07/03/24 09/01/24 Rx [Mycostatin Powder] Ferrous Sulfate [Iron (65 MG 325 mg PO DAILY 08/27/24 09/01/24 History Elemental)] HYDROcodone/APAP 5-325MG [[place] 1 tab PO BID PRN 08/27/24 09/01/24 History 5-325] Warfarin [Coumadin] 2.5 mg PO HS 08/27/24 09/01/24 History Furosemide [Lasix] 20 mg PO DAILY #30 tab 08/30/24 09/01/24 Rx predniSONE See Taper PO DIRECTED 09/01/24 09/01/24 History Allergies Allergy/AdvReac Type Severity Reaction Status Date / Time dopamine Allergy "WAS TOLD Verified 09/01/24 13:01 NOT TO HAVE RX AGAIN,VERY ILL STATES ALMOST " methylprednisolone AdvReac Hallucinati Verified 09/01/24 13:01 [From [facility]] ons Physical Exam Vitals: Vital Signs Temp Pulse Pulse Resp BP BP Pulse Ox 09/01/24 09:53 09/01/24 09:00 90 L 09/01/24 08:29 97.4 F L 62 17 151/57 92 L 09/01/24 04:45 61 18 09/01/24 04:11 97.4 F L 61 18 137/63 96 09/01/24 03:36 97.6 F 60 22 137/52 92 L 09/01/24 02:55 66 09/01/24 02:48 60 09/01/24 01:26 EDT 64 22 148/71 97 09/01/24 01:10 EDT 68 09/01/24 00:58 66 09/01/24 00:57 66 09/01/24 00:41 61 08/31/24 23:51 68 24 140/54 95 08/31/24 23:05 97.9 F 90 20 131/57 94 L FiO2 09/01/24 09:53 40 09/01/24 09:00 09/01/24 08:29 09/01/24 04:45 09/01/24 04:11 09/01/24 03:36 09/01/24 02:55 09/01/24 02:48 09/01/24 01:26 EDT 09/01/24 01:10 EDT 09/01/24 00:58 09/01/24 00:57 09/01/24 00:41 08/31/24 23:51 08/31/24 23:05 Intake and Output 08/31/24 09/01/24 09/01/24 23:59 06:59 14:59 Output Total Balance Output: Urine Other: Voiding Method Weight Results CBC & Chem 7: 08/31/24 23:57 08/31/24 23:57 Labs: Abnormal Lab Results - Last 24 Hours (Table) 08/31/24 08/31/24 09/01/24 Range/Units 23:57 23:57 06:18 WBC 22.4 H (3.8-10.6) k/uL RBC 3.73 L (4.30-5.90) m/uL Hgb 11.1 L (13.0-17.5) gm/dL Hct 34.9 L (39.0-53.0) % Neutrophils # 20.4 H (1.3-7.7) k/uL Lymphocytes # 0.4 L (1.0-4.8) k/uL Monocytes # 1.4 H (0-1.0) k/uL PT 56.0 H (10.0-12.5) sec INR 5.7 H* (<1.2) Sodium 136 L (137-145) mmol/L Potassium 5.2 H (3.5-5.1) mmol/L BUN 74 H (9-20) mg/dL Creatinine 1.89 H (0.66-1.25) mg/dL Glucose 107 H (74-99) mg/dL Thrombosis Risk Factor Assmnt - Choose All That Apply Any of the Below Risk Factors Present?: Yes Each Factor Represents 1 point: Abnormal pulmonary function (COPD), Obesity (BMI >25) Each Risk Factor Represents 3 Points: Age 75 years or older Thrombosis Risk Factor Assessment Total Risk Factor Score: 5 Thrombosis Risk Factor Assessment Level: High Risk
[2024-09-01] MEDS: WARFARIN 0.5 MG TAB PO ONE (15:53)
[2024-09-01] MEDS: ATORVASTATIN 40 MG TAB PO SCH (20:30)
[2024-09-02] MEDS: IPRATROPIUM-ALBUTEROL 3 ML NEB INHALATION PRN (02:09)
[2024-09-02 07:24] LABS: Prothrombin Time 74.2 sec (10.0-12.5)
[2024-09-02 07:34] LABS: INR 7.5 (<1.2)
[2024-09-02 07:58] VITALS: TEMP 97.9
[2024-09-02] MEDS: PHYTONADIONE 2 MG in SODIUM CHLORIDE 0.9% 50 ML IVPB STA (09:06)
[2024-09-02 09:57] VITALS: BP 150/61
--- NOTE | 2024-09-02 10:33 | P.CRDCN ---
History of Present Illness History of present illness: HISTORY OF PRESENT ILLNESS: This is a 84-year-old male with a past medical history significant for congestive heart failure, COPD, hypertension, hyperlipidemia, aortic stenosis with previous mechanical aortic valve replacement, and pacemaker implantation. Patient follows in the office with Dr. Prasad. We have been asked to see the patient in consultation for CHF. Patient examined at the bedside. Patient was just recently hospitalized last week for CHF. He was discharged home in stable condition. Patient states that he began to feel short of breath again and he returned to the hospital for further evaluation. At the time of examination this morning, patient does report shortness of breath. He denies chest pain or pressure. Patient was started on IV diuretics per pulmonary service. DIAGNOSTICS: - EKG reveals ventricular paced rhythm. - Chest xray cardiomegaly with small right pleural effusion and mild bilateral interstitial edema redemonstrated. Findings are consistent with CHF exacerbation/fluid overload state. - Laboratory data: WBC 22.4. Hemoglobin 11.1. Platelet count 214. INR 5.7. Repeat 7.5. Sodium 136. Potassium 5.4. BUN 74. Creatinine 1.89. Troponin 0.028. proBNP 6340. - Current home cardiac medications include amiodarone 200 mg daily, Lipitor 40 mg at night, Lasix 20 mg daily, metoprolol tartrate 50 mg twice a day, warfarin 2.5 mg at night, amlodipine 5 mg twice a day - Most recent echocardiogram obtained in July 2024 revealing ejection fraction 35 to 40%, mild to moderate pulmonary hypertension, severe mitral stenosis, trace mitral regurgitation, mechanical aortic valve without stenosis or perivalvular aortic regurgitation, mild tricuspid regurgitation - Cardiac catheterization history: October 1998 revealing normal coronary art eries REVIEW OF SYSTEMS: At the time of my exam: CONSTITUTIONAL: Denies fever or chills. HEENT: Denies blurred vision, vision changes, or eye pain. Denies hemoptysis CARDIOVASCULAR: Denies chest pain. Denies orthopnea. Denies PND. Denies palpitations RESPIRATORY: Denies shortness of breath. GASTROINTESTINAL: Denies abdominal pain. Denies nausea or vomiting. HEMATOLOGIC: Denies bleeding disorders. GENITOURINARY: Denies any blood in urine. SKIN: Denies pruitis. Denies rash. PHYSICAL EXAM: VITAL SIGNS: Reviewed. GENERAL: Well-developed in no acute distress. HEENT: Head is normocephalic. Pupils are equal, round. Sclerae anicteric. Mucous membranes of the mouth are moist. Neck supple. No JVD or thyromegaly LUNGS: Respirations even and unlabored. Lungs with expiratory wheezing noted HEART: Regular rate and rhythm. S1 and S2 heard. Mechanical click noted ABDOMEN: Soft. Nondistended. Nontender. EXTREMITIES: Normal range of motion. No clubbing or cyanosis. Peripheral pulses intact. Trace bilateral edema with chronic skin discoloration noted NEUROLOGIC: Awake and alert. Oriented x 3. ASSESSMENT: Shortness of breath Acute on chronic heart failure with reduced EF, 35 to 40% Acute hypoxic respiratory failure requiring BiPAP Recent hospitalization for congestive heart failure Mild to moderate pulmonary hypertension History of aortic stenosis with mechanical aortic valve replacement, [facility], 1998 Supratherapeutic INR Chronic kidney disease History of pacemaker implantation Hypertension Hyperlipidemia History of COPD Valvular heart disease including severe MS, trace MR and mild TR, and mechanical aortic valve PLAN: Per speech therapy, patient is strict n.p.o. at this time No need to repeat echocardiogram as this was performed last month Discontinue amiodarone as this may be contributing to patient's supratherapeutic INR Will give small dose of vitamin K 2 mg due to INR of 7.5. Due to mechanical aortic valve, do not want to give a large dose of vitamin K and have INR become subtherapeutic. Continue to monitor INR closely Continue IV Lasix 20 mg every 12 hours Daily weights, accurate intake and output, and monitoring of kidney function Further recommendations pending patient course Nurse practitioner note has been reviewed by physician. Signing provider agrees with the documented findings, assessment, and plan of care documented by SHAFT REPAIRER as a scribe. Past Medical History Past Medical History: Cancer, Heart Failure, COPD, Hyperlipidemia, Hypertension, Osteoarthritis (OA), Pneumonia, Prostate Disorder Additional Past Medical History / Comment(s): ARRYTHYTHMIA,AORTIC VALVE REPLACEMENT,PROSTATE CANCER, History of Any Multi-Drug Resistant Organisms: None Reported Past Surgical History: Cardiac Valve Replacement, Pacemaker, Tonsillectomy Additional Past Surgical History / Comment(s): vasectomy. carotid artery. Permanent Pacemaker by Dr Clark Past Anesthesia/Blood Transfusion Reactions: No Reported Reaction Type of Cardiac Device: Permanent Pacemaker Device Placement Date:: 10/30/2020 Past Psychological History: Depression Smoking Status: Former smoker Past Alcohol Use History: None Reported Additional Past Alcohol Use History / Comment(s): STARTED SMOKING AT AGE 13 QUIT 1998 SMOKED1-2PPD Past Drug Use History: None Reported - Past Family History Mother History Unknown: Yes Family Medical History: Cancer Medications and Allergies Home Medications Medication Instructions Recorded Confirmed Type amLODIPine [Norvasc] 5 mg PO BID 05/14/19 09/01/24 History Atorvastatin [Lipitor] 40 mg PO HS 09/19/23 09/01/24 History Loratadine [Claritin] 10 mg PO DAILY 09/19/23 09/01/24 History Amiodarone [Cordarone] 200 mg PO DAILY tab 07/03/24 09/01/24 Rx Budesonide-Formot 160-4.5 Mcg 2 puff INHALATION RT-BID each 07/03/24 09/01/24 Rx [Symbicort 160-4.5 Mcg Inhaler] Cholecalciferol [Vitamin D3 (25 50 mcg PO DAILY tab 07/03/24 09/01/24 Rx Mcg = 1000 Iu)] Metoprolol Tartrate [Lopressor] 50 mg PO BID tab 07/03/24 09/01/24 Rx Nystatin 100,000 Unit/gm Powd 1 applic TOPICAL BID each 07/03/24 09/01/24 Rx [Mycostatin Powder] Ferrous Sulfate [Iron (65 MG 325 mg PO DAILY 08/27/24 09/01/24 History Elemental)] HYDROcodone/APAP 5-325MG [[place] 1 tab PO BID PRN 08/27/24 09/01/24 History 5-325] Warfarin [Coumadin] 2.5 mg PO HS 08/27/24 09/01/24 History Furosemide [Lasix] 20 mg PO DAILY #30 tab 08/30/24 09/01/24 Rx predniSONE See Taper PO DIRECTED 09/01/24 09/01/24 History Allergies Allergy/AdvReac Type Severity Reaction Status Date / Time dopamine Allergy "WAS TOLD Verified 09/01/24 13:01 NOT TO HAVE RX AGAIN,VERY ILL STATES ALMOST " methylprednisolone AdvReac Hallucinati Verified 09/01/24 13:01 [From [facility]] ons Physical Exam Vitals: Vital Signs Temp Pulse Pulse Resp BP Pulse Ox FiO2 09/02/24 09:56 67 150/61 96 09/02/24 09:27 60 19 140/50 87 L 09/02/24 09:21 12 162/69 09/02/24 09:14 63 138/61 85 L 09/02/24 09:04 68 40 09/02/24 09:01 90 L 09/02/24 08:41 67 09/02/24 08:30 91 L 09/02/24 07:18 97.9 F 67 21 121/55 09/02/24 02:16 96 09/02/24 02:12 92 09/02/24 01:44 97.0 F L 59 L 18 145/62 90 L 09/01/24 20:45 18 09/01/24 19:54 97.4 F L 93 18 147/57 90 L 09/01/24 14:28 97.6 F 60 17 133/54 95 09/01/24 11:01 40 Intake and Output 09/01/24 09/02/24 09/02/24 22:59 06:59 14:59 Output Total 600 300 Balance -600 -300 Output: Urine 600 300 Other: Voiding Method External Catheter Results 08/31/24 23:57 08/31/24 23:57 Coagulation 09/02/24 Range/Units 05:59 PT 74.2 H (10.0-12.5) sec Current Medications Generic Name Dose Route Start Last Admin Trade Name Freq PRN Reason Stop Dose Admin Al Hydroxide/Mg Hydroxide 15 ml 09/01/24 02:24 Mag Hydrox/Al Hydrox/Simeth 30 Ml Cup PO Q6HR PRN Indigestion Albuterol/Ipratropium 3 ml 09/02/24 01:31 09/02/24 08:40 Ipratropium-Albuterol 3 Ml Neb INHALATION 3 ml RT-Q2H PRN Administration Shortness Of Breath Or Wheezing Amlodipine Besylate 5 mg 09/01/24 09:00 09/02/24 08:26 Amlodipine 5 Mg Tab PO Not Given BID JON Atorvastatin Calcium 40 mg 09/01/24 21:00 09/01/24 20:30 Atorvastatin 40 Mg Tab PO Not Given HS JON Budesonide/Formoterol Fumarate 2 puff 09/01/24 08:00 09/02/24 08:40 Symbicort 160-4.5 Mcg Inhaler INHALATION 2 puff RT-BID JON Administration Cholecalciferol 50 mcg 09/01/24 09:00 11/04/24 08:26 Cholecalciferol 25 Mcg (1000 Iu) Tablet PO Not Given DAILY [facility] Ferrous Sulfate 325 mg 09/01/24 09:00 09/02/24 08:26 Ferrous Sulfate 325 Mg Tab PO Not Given DAILY [facility] Furosemide 20 mg 09/01/24 10:00 09/02/24 08:39 Furosemide 10 Mg/Ml 2 Ml Vial IV 20 mg Q12HR JON Administration Loratadine 10 mg 09/01/24 09:00 09/02/24 08:26 Loratadine 10 Mg Tab PO Not Given DAILY [facility] Metoprolol Tartrate 50 mg 09/01/24 09:00 09/02/24 08:26 Metoprolol Tartrate 50 Mg Tab PO Not Given BID [facility] Miscellaneous Information 0 each 09/01/24 13:16 Warfarin Per Pharmacy MISCELLANE DIRECTED PRN PER PROTOCOL Morphine Sulfate 4 mg 09/01/24 02:38 09/02/24 08:56 Morphine Sulfate 4 Mg/Ml Syringe IV 4 mg Q4HR PRN Administration Severe Pain (Scale 7 to 10) Naloxone HCl 0.2 mg 09/01/24 02:24 Naloxone 0.4 Mg/Ml 1 Ml Vial IV Q2M PRN Opioid Reversal Ondansetron HCl 4 mg 09/01/24 02:24 Ondansetron 4 Mg/2 Ml Vial IVP Q8HR PRN Nausea And Vomiting Warfarin Sodium 0 mg 09/02/24 18:00 Warfarin 0.5 Mg Tab PO 09/02/24 18:01 ONCE@1800 ONE Intake and Output 09/01/24 09/02/24 09/02/24 22:59 06:59 14:59 Output Total 600 300 Balance -600 -300 Output: Urine 600 300 Other: Voiding Method External Catheter 08/31/24 23:57 08/31/24 23:57
[2024-09-02] MEDS: MORPHINE SULFATE 2 MG/ML SYRINGE IVP PRN (10:58)
[2024-09-02] MEDS ORDERED: MORPHINE SULFATE 2 MG/ML SYRINGE IVP SCH (11:00)
[2024-09-02] MEDS: LORazepam 2 MG/ML INJ IV PRN (11:16)
[2024-09-02] MEDS: MORPHINE SULFATE 2 MG/ML SYRINGE IVP STA (11:23)
[2024-09-02] MEDS: SCOPOLAMINE 1 MG/72 HR PATCH TRANSDERM SCH (11:40)
--- NOTE | 2024-09-02 11:43 | P.PN ---
Subjective Progress Note Date: 09/02/24 History of present illness; patient is a 84-year-old gentleman with past medical history significant for COPD, CHF, bacteremia probably hyperlipidemia, hypertension brought in the ER because of shortness of breath. Patient was admitted in the hospital recently. Patient states that he has been having s hortness of breath for the last 2 days. Shortness of breath was present on rest as well as on exertion. Patient denies any chest pain. There was no complaint of any fever or chills. Patient denied any swelling of feet. There was no complaint nausea, vomit abdominal pain. Because of the symptoms, patient presented to the ER Initial lab work done in the ER showed WBC 22.4, hemoglobin 9.1, platelet count 214, sodium 136 potassium 5.2, BUN 74, creatinine 1.89 Influenza A not detected Influenza B not detected RSV not detected COVID-19 not detected EKG done in the ER showed heart rate of 74, paced rhythm Chest x-ray done in the ER showed cardiomegaly with small right pleural effusion and mild bilateral interstitial edema. Patient admitted to internal medicine service 09/02/2024 Patient is seen in follow-up this morning unresponsive and obtunded and per nursing staff patient was alert and oriented refusing the BiPAP this morning and was placed on nasal cannula. Patient was reevaluated shortly after noted to be off oxygen and BiPAP had been removed and patient was completely obtunded and unresponsive. a team was called for respiratory distress and patient placed back on BiPAP. Discussed over the phone in detail with Claudia his daughter and she confirmed she has the paperwork that expresses his wishes of being in no code and does not want to be on a mechanical ventilation. Patient was adamant he was a DNR and was alert and oriented making this decision. Daughter expressed her wishes to have all of his belongings gathered for her to have someone to come get them. She is not able to physically come to the hospital as she is on a kidney transplant list and is scheduled to have surgery on the or of this month. Patient was placed on comfort measures and will continue providing supportive care. Overall poor and guarded prognosis. REVIEW OF SYSTEMS: Unable to completely assess as patient is obtunded and unresponsive Active Medications Al Hydroxide/Mg Hydroxide (Mag Hydrox/Al Hydrox/Simeth 30 Ml Cup) 15 ml PO Q6HR PRN PRN Reason: Indigestion Albuterol/Ipratropium (Ipratropium-Albuterol 3 Ml Neb) 3 ml INHALATION RT-Q2H PRN PRN Reason: Shortness Of Breath Or Wheezing Last Admin: 09/02/24 08:40 Dose: 3 ml Amlodipine Besylate (Amlodipine 5 Mg Tab) 5 mg PO BID [facility] Last Admin: 09/02/24 08:26 Dose: Not Given Atorvastatin Calcium (Atorvastatin 40 Mg Tab) 40 mg PO HS [facility] Last Admin: 09/01/24 20:30 Dose: Not Given Budesonide/Formoterol Fumarate (Symbicort 160-4.5 Mcg Inhaler) 2 puff INHALATION RT-BID [facility] Last Admin: 09/02/24 08:40 Dose: 2 puff Cholecalciferol (Cholecalciferol 25 Mcg (1000 Iu) Tablet) 50 mcg PO DAILY [facility] Last Admin: 09/02/24 08:26 Dose: Not Given Ferrous Sulfate (Ferrous Sulfate 325 Mg Tab) 325 mg PO DAILY [facility] Last Admin: 09/02/24 08:26 Dose: Not Given Furosemide (Furosemide 10 Mg/Ml 2 Ml Vial) 20 mg IV Q12HR [facility] Last Admin: 09/02/24 08:39 Dose: 20 mg Loratadine (Loratadine 10 Mg Tab) 10 mg PO DAILY [facility] Last Admin: 09/02/24 08:26 Dose: Not Given Lorazepam (Lorazepam 2 Mg/Ml Inj) 1 mg IV Q2H PRN PRN Reason: distress Last Admin: 09/02/24 11:16 Dose: 1 mg Metoprolol Tartrate (Metoprolol Tartrate 50 Mg Tab) 50 mg PO BID [facility] Last Admin: 09/02/24 08:26 Dose: Not Given Miscellaneous Information (Warfarin Per Pharmacy) 0 each MISCELLANE DIRECTED PRN PRN Reason: PER PROTOCOL Morphine Sulfate (Morphine Sulfate 4 Mg/Ml Syringe) 4 mg IV Q4HR PRN PRN Reason: Severe Pain (Scale 7 to 10) Last Admin: 09/02/24 08:56 Dose: 4 mg Morphine Sulfate (Morphine Sulfate 2 Mg/Ml Syringe) 2 mg IVP Q1H PRN PRN Reason: respiratory distress Last Admin: 09/02/24 10:58 Dose: 2 mg Naloxone HCl (Naloxone 0.4 Mg/Ml 1 Ml Vial) 0.2 mg IV Q2M PRN PRN Reason: Opioid Reversal Ondansetron HCl (Ondansetron 4 Mg/2 Ml Vial) 4 mg IVP Q8HR PRN PRN Reason: Nausea And Vomiting Scopolamine (Scopolamine 1 Mg/72 Hr Patch) 1 patch TRANSDERM Q72H JON Warfarin Sodium (Warfarin 0.5 Mg Tab) 0 mg PO ONCE@1800 ONE Stop: 09/02/24 18:01 PHYSICAL EXAMINATION: GENERAL: The patient is obtunded, unresponsive, agonal breathing, well- developed, elderly appearing, ill-appearing, cyanotic with blue lips HEENT: Pupils are round and equally reacting to light. EOMI. No scleral icterus. No conjunctival pallor. Normocephalic, atraumatic. No pharyngeal erythema. No th yromegaly. CARDIOVASCULAR: S1 and S2 muffled, tacky PULMONARY: Diminished breath sound the bases bilaterally, bilateral rhonchi audible with extremely diminished breath sounds bilaterally ABDOMEN: Soft, obese, nontender, nondistended, normoactive bowel sounds. No palpable organomegaly. MUSCULOSKELETAL: No joint swelling or deformity. EXTREMITIES: No cyanosis, clubbing, or pedal edema. Cyanosis noted of the upper extremities and neck area and face with lips NEUROLOGICAL: Gross neurological examination did not reveal any focal deficits. Unable to assess SKIN: No rashes. Assessment: Acute COPD exacerbation Acute on chronic hypoxemic respiratory failure secondary to COPD as well as CHF exacerbation Acute on chronic systolic CHF Supratherapeutic INR maintained on Coumadin for mechanical aortic valve replacement Anemia of chronic disease Valvular heart disease, history of moderate mitral stenosis and previous mechanical aortic valve replacement. Chronically anticoagulated on warfarin Permanent pacemaker Hypertension History of hyperlipidemia GI prophylaxis DVT prophylaxis No code Plan: Patient was continued on supplemental oxygen in the form of BiPAP as well as nasal cannula. Patient was on BiPAP this morning and refusing to wear any further continuing to take off and patient was alert and oriented while doing this Per nursing staff patient became obtunded and unresponsive noted be extremely hypoxic and and a team was called for respiratory distress. Claudia was notified over the phone his daughter who has the paperwork expressing his wishes for DNR and no mechanical ventilation. Patient will be given morphine and Ativan along with scopolamine patch for comfort measures Daughter is also asking if all of his belongings can be gathered for her to have someone come get them as she is unable to visit the hospital due to herself having medical issues and being that she is having surgery on the and reports she cannot come to the hospital at this time Overall poor and guarded prognosis. The impression and plan of care has been dictated by Pam Barajas, Nurse Practitioner as directed. Dr. Lotus MD I have performed a history and examination and MDM of this patient, discussed the same with the dictator, and agree with the dictator's assessment and plan as written ,documented as a scribe. Based on total visit time, I have performed more than 50% of the visit. Objective - Vital Signs Vital signs: Vital Signs Temp 97.9 F 09/02/24 07:18 Pulse 60 09/02/24 09:27 Resp 19 09/02/24 09:27 BP 140/50 09/02/24 09:27 Pulse Ox 87 L 09/02/24 09:27 FiO2 40 09/02/24 09:04 Intake & Output 09/01/24 09/02/24 09/02/24 18:59 06:59 18:59 Output Total 600 300 Balance -600 -300 Output: Urine 600 300 Other: Voiding Method External Catheter External Catheter - Labs CBC & Chem 7: 08/31/24 23:57 08/31/24 23:57 Labs: Abnormal Lab Results - Last 24 Hours (Table) 09/02/24 Range/Units 05:59 PT 74.2 H (10.0-12.5) sec INR 7.5 H* (<1.2)
[2024-09-02] MEDS: MORPHINE SULFATE (100 MG/2 ML) 100 MG in SODIUM CHLORIDE 0.9% 100 ML IV SCH (12:29)
[2024-09-02 14:31] VITALS: PULSE 35; RESP 18
[2024-09-02 15:46] VITALS: BMI 27.1
[2024-09-02] MEDS ORDERED: WARFARIN 0.5 MG TAB PO ONE (18:00)
--- NOTE | 2024-09-03 14:06 | P.DS ---
Providers Date of admission: 09/01/24 02:27 Expected date of discharge: 09/02/24 Attending physician: Luna Mack Consults: 09/01/24 02:24 Consult Physician Routine Consulting Provider: Hitesh Campos Consult Reason/Comments: COPD exacerbation Do you want consulting provider notified?: Yes, Notify in am 09/01/24 10:53 Consult Physician Routine Consulting Provider: Marvin Hannah Consult Reason/Comments: CHF exacerbaion Do you want consulting provider notified?: Yes Primary care physician: Coleman Nugent Hospital Course: Preliminary cause of Congestive heart failure with systolic dysfunction Final diagnoses Acute COPD exacerbation Acute on chronic hypoxemic respiratory failure secondary to COPD as well as CHF exacerbation Acute on chronic systolic CHF Supratherapeutic INR maintained on Coumadin for mechanical aortic valve replacement Anemia of chronic disease Valvular heart disease, history of moderate mitral stenosis and previous mechanical aortic valve replacement. Chronically anticoagulated on warfarin Permanent pacemaker Hypertension History of hyperlipidemia GI prophylaxis DVT prophylaxis No code Discharge disposition Patient has . According to nursing documentation, time of was 1445 on 09/02/2024. Total time taken greater than 35 minutes Hospital course This is a 84-year-old male who was recently admitted with increased shortness of breath with concerns of CHF exacerbation. Cardiology and pulmonary following making recommendations to medications requiring oxygen and also requiring BiPAP support. Patient was adamant in the morning to have the BiPAP removed although desatting quickly and per nursing staff continued to take the BiPAP mask off refusing to wear it any further. Patient was noted to be obtunded on r eevaluation and unresponsive and an a team was called and patient placed back on BiPAP. Patient continued to be unresponsive and family was notified of his current clinical situation and condition and patient is a no code. This was confirmed with daughter Claudia who has the paperwork and also patient was adamant he was no code in the computer on admission. Patient extremely anxious and restless appeared in distress was started on comfort measures initially started with morphine and Ativan for supportive measures and transition to morphine drip. Patient at 1445 on 09/02/2024. Nursing staff notified family. Please refer to other documentation for further HPI. The impression and plan of care has been dictated by Pam Barajas, Nurse Practitioner as directed. Dr. Lotus MD I have performed a history and examination and MDM of this patient, discussed the same with the dictator, and agree with the dictator's assessment and plan as written ,documented as a scribe. Based on total visit time, I have performed more than 50% of the visit. Patient Condition at Discharge: Good Plan - Discharge Summary New Discharge Prescriptions: No Action amLODIPine [Norvasc] 5 mg PO BID Atorvastatin [Lipitor] 40 mg PO HS Loratadine [Claritin] 10 mg PO DAILY Metoprolol Tartrate [Lopressor] 50 mg PO BID tab HYDROcodone/APAP 5-325MG [[place] 5-325] 1 tab PO BID PRN PRN Reason: Pain predniSONE See Taper PO DIRECTED Amiodarone [Cordarone] 200 mg PO DAILY tab Nystatin 100,000 Unit/gm Powd [Mycostatin Powder] 1 applic TOPICAL BID each Budesonide-Formot 160-4.5 Mcg [Symbicort 160-4.5 Mcg Inhaler] 2 puff INHALATION RT-BID each Cholecalciferol [Vitamin D3 (25 Mcg = 1000 Iu)] 50 mcg PO DAILY tab Warfarin [Coumadin] 2.5 mg PO HS Ferrous Sulfate [Iron (65 MG Elemental)] 325 mg PO DAILY Furosemide [Lasix] 20 mg PO DAILY #30 tab Discharge Medication List amLODIPine [Norvasc] 5 mg PO BID 05/14/19 [History] Atorvastatin [Lipitor] 40 mg PO HS 09/19/23 [History] Loratadine [Claritin] 10 mg PO DAILY 09/19/23 [History] Amiodarone [Cordarone] 200 mg PO DAILY tab 07/03/24 [Rx] Budesonide-Formot 160-4.5 Mcg [Symbicort 160-4.5 Mcg Inhaler] 2 puff INHALATION RT-BID each 07/03/24 [Rx] Cholecalciferol [Vitamin D3 (25 Mcg = 1000 Iu)] 50 mcg PO DAILY tab 07/03/24 [Rx] Metoprolol Tartrate [Lopressor] 50 mg PO BID tab 07/03/24 [Rx] Nystatin 100,000 Unit/gm Powd [Mycostatin Powder] 1 applic TOPICAL BID each 07/03/24 [Rx] Ferrous Sulfate [Iron (65 MG Elemental)] 325 mg PO DAILY 08/27/24 [History] HYDROcodone/APAP 5-325MG [[place] 5-325] 1 tab PO BID PRN 08/27/24 [History] Warfarin [Coumadin] 2.5 mg PO HS 08/27/24 [History] Furosemide [Lasix] 20 mg PO DAILY #30 tab 08/30/24 [Rx] predniSONE See Taper PO DIRECTED 09/01/24 [History] Follow up Appointment(s)/Referral(s): Coleman Nugent MD [Primary Care Provider] - 1-2 days Discharge Disposition: - Preliminary Cause of Preliminary Cause of : Congestive heart failure with systolic dysfunction
--- NOTE | 2024-09-09 15:57 | CDI ---
Documentation Clarification Form Date: 09/09/2024 03:40:12 PM From: Kristen Whitaker Phone: Admit Date: 09/02/2024 12:18:00 PM Patient Name: Pete Mckinley Visit Number: [id number] Discharge Date: 09/02/2024 02:45:00 PM ATTENTION: The Clinical Documentation Specialists (CDI) and [facility] Coding Staff appreciate your assistance in clarifying documentation. Please respond to the clarification below the line at the bottom and electronically sign. The CDI & [facility] Coding staff will review the response and follow-up if needed. Please note: Queries are made part of the Legal Health Record. If you have any questions, please contact the author of this message via ITS. Doctor/Provider: Pam Barajas Unspecified CKD is documented throughout the notes. Additional clarification regarding the stage of CKD is requested. History/Risk Factors: 84yo M, AECOPD, ACHHRF, ACSHF, HTN, HLD, anemia of chronic disease, DOMINGO, AC d/tHx AVR, former smoker, DNR Patients Historical BUN/CR/GFR Clinical Indicators: BUN: 74 CR: 1.89 NonAf 32 AfAm 37 Treatment: The patient was seen and evaluated. Labs and medications reviewed. Procalcitonin negative. Abx discontinued. Continue IV diuretics. [id number] and 40% FiO2. Hold warfarin today. Pt deteriorated and . Please clarify the stage of the CKD, if known: [ ] CKD Stage 3b [ x ] CKD Stage 4 [ ] Other, please specify [ ] Unable to determine Reference: [employer] Stage 1 eGFR = 90 and kidney damage for =3 months Stage 2 eGFR 60-89 and kidney damage for =3 months Stage 3a eGFR 45-59 and kidney damage for =3 months Stage 3b eGFR 30-44 and kidney damage for =3 months Stage 4 eGFR 15-29 r and kidney damage for =3 months Stage 5 eGFR <15 and kidney damage for =3 months (Template last revised: October 2023) MTDD
== END 2024-09-02 14:45 | disposition expired | DRG 291 ==
LOC: EC 22:59 → 4SSUR 09-01 02:27 → OBSVTOIN 09-02 12:18
PROVIDERS: ADMIT Hospitalist; ATTEND Hospitalist
PROC: 5A09357 Assistance with Respiratory Ventilation, Less than 24 Consecutive Hours, Continuous Positive Airway Pressure (ICD-10-PCS; principal; 2024-09-01)
DX: I13.0 Hypertensive heart and chronic kidney disease with heart failure and stage 1 through stage 4 chronic kidney disease, or unspecified chronic kidney disease (principal); I50.23 Acute on chronic systolic (congestive) heart failure; J96.21 Acute and chronic respiratory failure with hypoxia; J44.1 Chronic obstructive pulmonary disease with (acute) exacerbation; N17.9 Acute kidney failure, unspecified; N18.4 Chronic kidney disease, stage 4 (severe); I27.20 Pulmonary hypertension, unspecified; Z51.5 Encounter for palliative care; Z66 Do not resuscitate; D63.1 Anemia in chronic kidney disease; Z95.3 Presence of xenogenic heart valve; Z79.01 Long term (current) use of anticoagulants; I08.1 Rheumatic disorders of both mitral and tricuspid valves; E78.5 Hyperlipidemia, unspecified; E87.5 Hyperkalemia; R79.1 Abnormal coagulation profile; Z79.899 Other long term (current) drug therapy; Z79.51 Long term (current) use of inhaled steroids; Z85.46 Personal history of malignant neoplasm of prostate; Z87.891 Personal history of nicotine dependence; Z95.0 Presence of cardiac pacemaker
CPT/HCPCS: 36415; 71046; 80053; 83605; 83880; 84145; 84484; 85025; 85610; 87636; 93005; 94640; 94660; 94760; 96374; 96375; 99291